=== PATIENT | male | born 1955 | race Caucasian/White ===

== ENCOUNTER 2016-09-21 06:51 | Day surgery (SDC) | payer OTHER ==
[2016-09-16 10:37] VITALS: BMI 41.1
[~2016-09-21 06:51] MED LIST: LACTATED RINGERS 1,000 ML IV SCH
[2016-09-21] MEDS ORDERED: LACTATED RINGERS 1,000 ML IV ONE (06:59)
[2016-09-21 07:04] VITALS: RESP 16; TEMP 97.8
[2016-09-21 07:10] LABS: Glucose,Whole Blood 232 mg/dL (75-99)
[2016-09-21] MEDS ORDERED: PROPOFOL 10 MG/ML 20 ML VIAL IV ONE (07:21)
--- NOTE | 2016-09-21 07:59 | P.PCN ---
Date of Procedure: 09/21/16 Procedure(s) Performed: BRIEF HISTORY: Patient is a 60-year-old pleasant white male, scheduled for an elective colonoscopy as a part of screening for colorectal neoplasia. PROCEDURE PERFORMED: Colonoscopy with snare polypectomy. PREOPERATIVE DIAGNOSIS: Screening for colon cancer. IV sedation per Anesthesia. PROCEDURE: After informed consent was obtained, the patient, was brought into the endoscopy unit. IV conscious sedation was administered by Anesthesia under continuous monitoring. Initially the Olympus CF-160 flexible video colonoscope was then inserted in the rectum, gradually advanced into the cecum without any difficulty. Careful examination was performed as the scope was gradually being withdrawn. Ileocecal valve and the appendiceal orifice were visualized and appeared normal. Prep was excellent. Mucosa of the cecum, appeared normal. In the ascending colon there was a 5 mm polyp removed by snare polypectomy. In the descending colon there were 2 polyps measuring 5 mm and 2 cm in size both of which were removed by snare polypectomy. The rest of the ascending colon, transverse colon, descending colon, sigmoid colon, and rectum appeared normal. Retroflexion was performed in the rectum and no lesions were seen. The patient tolerated the procedure well. IMPRESSION: 5 mm ascending colon polyp status post polypectomy. 5 mm and 2 cm descending colon polyp serous was snare polypectomy RECOMMENDATIONS: Findings of this examination were discussed with the patient as well as his family. He was advised to follow with the biopsy results. If the biopsy shows a tubular adenoma he can have a repeat colonoscopy in 3 years to 5 years.
[2016-09-21 08:23] VITALS: BP 130/76; PULSE 85
[2016-09-21 08:30] LABS: Glucose,Whole Blood 231 mg/dL (75-99)
== END 2016-09-21 08:48 | disposition home or self-care (01) ==
LOC: ORWHC2ENDO 06:51
PROVIDERS: ATTEND Internal Medicine Gastroenterology
DX: Z12.11 Encounter for screening for malignant neoplasm of colon (principal); D12.3 Benign neoplasm of transverse colon; D12.4 Benign neoplasm of descending colon; D12.5 Benign neoplasm of sigmoid colon; E11.9 Type 2 diabetes mellitus without complications; Z79.4 Long term (current) use of insulin; Z79.891 Long term (current) use of opiate analgesic; Z79.899 Other long term (current) drug therapy
CPT/HCPCS: 88305; 45385; J2704

== ENCOUNTER 2023-07-29 12:13 | Emergency (ER) | payer MEDICARE, OTHER ==
[2023-07-29 12:21] VITALS: RESP 18
[2023-07-29] MEDS ORDERED: FLUORESCEIN STRIPS 1 MG STRIP RIGHT EYE ONE (12:43)
[2023-07-29] MEDS ORDERED: PROPARACAINE 0.5% OPHTH DROPS 15 ML BTL RIGHT EYE STA (12:43)
[2023-07-29] MEDS ORDERED: CYCLOPENTOLATE 1% OPHTH SOLN 2 ML BTL RIGHT EYE STA (13:51)
[2023-07-29] MEDS ORDERED: POLYMYXIN B-TRIMETHOPRIM SULF (10,000-1) OPHTH DROPS 10 ML BTL RIGHT EYE STA (13:52)
--- NOTE | 2023-07-29 13:56 | ED ---
General Adult HPI - General Chief complaint: Eye Problems Stated complaint: [place] eye Time Seen by Provider: 07/29/23 12:24 Source: patient, RN notes reviewed Mode of arrival: ambulatory Limitations: no limitations - History of Present Illness Initial comments: 67-year-old male presents to the emergency department chief complaint of right eye pain. He states that this started around 4 days ago. He states the symptoms seem to be improving. He did initially have drainage from the eye which has resolved. He states that he overall has poor vision and can barely see with his glasses on at baseline. He states that he may have some slight worsening in his vision in his right eye but he is unsure. He states that the eye is mildly painful. Denies pain with eye movements. He states he is followed with [facility] [place] in the past but has not been there in over 2 years. He does not recall the doctor that he saw. He does report a history of diabetic retinopathy but no other known eye disease. - Related Data Home Medications Medication Instructions Recorded Confirmed ALPRAZolam [Xanax] 2 mg PO HS 02/24/14 09/21/16 Insulin Glargine [Lantus] 100 units SQ QAM 02/24/14 09/21/16 Hydrocodone/Acetaminophen 1 each PO Q6H PRN 04/13/15 09/21/16 [Hydrocodon-Acetaminoph 7.5-325] Insulin Aspart [Novolog] 20 unit SQ AC-TID 09/16/16 09/21/16 Allergies Allergy/AdvReac Type Severity Reaction Status Date / Time No Known Allergies Allergy Verified 09/21/16 07:04 Review of Systems ROS Statement: Those systems with pertinent positive or pertinent negative responses have been documented in the HPI. ROS Other: All systems not noted in ROS Statement are negative. 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, NEEDLE ASPIRATION LEFT EYE Q 3 MONTHS, PAIN CLINIC Past Anesthesia/Blood Transfusion Reactions: No Reported Reaction Past Psychological History: Anxiety Smoking Status: Current every day smoker Past Alcohol Use History: None Reported Past Drug Use History: None Reported - Past Family History Mother Family Medical History: Cancer Additional Family Medical History / Comment(s): BREAST Sister(s) Family Medical History: Cancer General Exam Limitations: no limitations General appearance: alert, in no apparent distress Head exam: Present: atraumatic, normocephalic, normal inspection Eye exam: Present: PERRL, EOMI, conjunctival injection, other (Visual acuity unable to be assessed due to baseline poor vision). Absent: normal appearance ENT exam: Present: normal exam, mucous membranes moist Neurological exam: Present: alert, oriented X3 Psychiatric exam: Present: normal affect, normal mood Skin exam: Present: warm, dry, intact, normal color. Absent: rash Course Vital Signs 07/29/23 07/29/23 12:14 14:22 Temperature 98.4 F 98.2 F Pulse Rate 106 H 80 Respiratory 18 18 Rate Blood Pressure 119/71 132/85 O2 Sat by Pulse 98 98 Oximetry Medical Decision Making - Medical Decision Making Was pt. sent in by a medical professional or institution (SELMA [place], [facility], urgent care, hospital, or [facility]...) When possible be specific @ -No Did you speak to anyone other than the patient for history (EMS, parent, family, police, friend...)? What history was obtained from this source @ -No Did you review nursing and triage notes (agree or disagree)? Why? @ -I reviewed and agree with nursing and triage notes Were old charts reviewed (outside hosp., previous admission, EMS record, old EKG, old radiological studies, urgent care reports/EKG's, [facility] records)? Report findings @ -No old charts were reviewed Differential Diagnosis (chest pain, altered mental status, abdominal pain women, abdominal pain men, vaginal bleeding, weakness, fever, dyspnea, syncope, headache, dizziness, GI bleed, back pain, seizure, CVA, palpatations, mental health, musculoskeletal)? @ -Conjunctivitis, iritis, uveitis, acute angle-closure glaucoma, this list is not all-inclusive EKG interpreted by me (3pts min.). @ -none X-rays interpreted by me (1pt min.). @ -None done CT interpreted by me (1pt min.). @ -None done U/S interpreted by me (1pt. min.). @ -None done What testing was considered but not performed or refused? (CT, X-rays, U/S, labs)? Why? @ -None What meds were considered but not given or refused? Why? @ -None Did you discuss the management of the patient with other professionals (professionals i.e. , PA, BAKESHOP CLEANER, lab, RT, psych nurse, social human services assistants, project/production manager imaging, teacher, command center officer, outsole caser)? Give summary @ -No Was smoking cessation discussed for >3mins.? @ -No Was critical care preformed (if so, how long)? @ -No Were there social determinants of health that impacted care today? How? (Homelessness, low income, unemployed, alcoholism, drug addiction, transportation, low edu. Level, literacy, decrease access to med. care, long-term, rehab)? @ -No Was there de-escalation of care discussed even if they declined (Discuss DNR or withdrawal of care, Hospice)? DNR status @ -No What co-morbidities impacted this encounter? (DM, HTN, Smoking, COPD, CAD, Cancer, CVA, ARF, Chemo, Hep., AIDS, mental health diagnosis, sleep apnea, morbid obesity)? @ -None Was patient admitted / discharged? Hospital course, mention meds given and route, prescriptions, significant lab abnormalities, going to OR and other pertinent info. @ -Discharged. Patient presented to the emergency department chief complaint of right eye redness 4 days. He states that the symptoms are improving. Ocular pressure in the right eye 12, pressure in left eye 17. Visual acuity unable to be assessed due to her vision at baseline. With his glasses he is unable to visualize the chart which is baseline for the patient. Fluorescein staining performed which shows no obvious corneal abrasion. Discussed with patient that he needs to follow his ophthalmology on Monday as we do not have ophthalmology coverage this weekend. Discussed that if symptoms worsen he should go to an emergency department with ophthalmology coverage. Return precautions discussed. Patient expresses understanding and is agreeable with plan. Patient started on antibiotic eyedrops. She is stable at time of discharge. Case discussed with Dr. Tobias in detail who is agreeable with plan Undiagnosed new problem with uncertain prognosis? @ -No Drug Therapy requiring intensive monitoring for toxicity (Heparin, Nitro, Insulin, Cardizem)? @ -No Were any procedures done? @ -No Diagnosis/symptom? @ -Iritis Acute, or Chronic, or Acute on Chronic? @ -Acute Uncomplicated (without systemic symptoms) or Complicated (systemic symptoms)? @ -Uncomplicated Side effects of treatment? @ -No Exacerbation, Progression, or Severe Exacerbation? @ -No Poses a threat to life or bodily function? How? (Chest pain, [place], [place], pneumonia, PE, COPD, DKA, ARF, appy, cholecystitis, CVA, Diverticulitis, Homicidal, Suicidal, threat to staff... and all critical care pts) @ -No Disposition Clinical Impression: Iritis, Bacterial conjunctivitis Disposition: HOME SELF-CARE Condition: Stable Instructions (If sedation given, give patient instructions): Iritis (ED), Conjunctivitis (ED) Additional Instructions: Instill 1 eye drop every 6 hours. Please follow up with ophthalmology on Monday. Return to an emergency department with ophthalmology for worsening symptoms. Is patient prescribed a controlled substance at d/c from ED?: No Referrals: Padma Gomez MD [Primary Care Provider] - 1-2 days
[2023-07-29 14:28] VITALS: BP 132/85; PULSE 80; TEMP 98.2
== END 2023-07-29 14:27 | disposition home or self-care (01) ==
LOC: EC 12:13
DX: H20.011 Primary iridocyclitis, right eye (principal); E11.9 Type 2 diabetes mellitus without complications; M19.90 Unspecified osteoarthritis, unspecified site; F41.9 Anxiety disorder, unspecified; F17.200 Nicotine dependence, unspecified, uncomplicated; Z79.4 Long term (current) use of insulin; Z79.899 Other long term (current) drug therapy
CPT/HCPCS: 99283

== ENCOUNTER 2023-09-01 15:31 | Emergency (ER) | payer MEDICARE, OTHER ==
--- NOTE | 2023-09-01 15:56 | ED ---
General Adult HPI - General Source: patient, RN notes reviewed Mode of arrival: ambulatory Limitations: no limitations <Gregory Webb - Last Filed: 09/01/23 15:55> - General Source: patient, RN notes reviewed, old records reviewed <Yfn Emery - Last Filed: 09/01/23 23:48> - General Stated complaint: Hyperglycemia Time Seen by Provider: 09/01/23 15:55 - History of Present Illness Initial comments: 67-year-old male presents emergency Department with chief complaint of hyperglycemia. Patient's blood sugars reading over 600 patient did receive multiple doses of insulin today. Patient has no complaints family reports that his blood sugar is not well-controlled. (Gregory Webb) Patient is a 67-year-old male who presents emergency Department for hyperglycemia. Has home nurse which found he was hyperglycemic with sugars are elevated. Apparently did have a reading over 600 today but had no other acute complaints. His history of chronically elevated sugars ranging anywhere from 100-400. Denies any nausea, vomiting, diarrhea. Denies any abdominal pain, chest pain, fevers, chills, cough. No other acute complaint at this time. Pres ents for further evaluation at this time. I evaluated the patient will need he was placed in a hallway bed. (Yfn Emery) - Related Data Home Medications Medication Instructions Recorded Confirmed ALPRAZolam [Xanax] 2 mg PO HS 02/24/14 09/21/16 Insulin Glargine [Lantus] 100 units SQ QAM 02/24/14 09/21/16 Hydrocodone/Acetaminophen 1 each PO Q6H PRN 04/13/15 09/21/16 [Hydrocodon-Acetaminoph 7.5-325] Insulin Aspart [Novolog] 20 unit SQ AC-TID 09/16/16 09/21/16 Allergies Allergy/AdvReac Type Severity Reaction Status Date / Time No Known Allergies Allergy Verified 09/01/23 16:34 Review of Systems ROS Other: All systems not noted in ROS Statement are negative. <Gregory Webb - Last Filed: 09/01/23 15:55> ROS Other: All systems not noted in ROS Statement are negative. <Yfn Emery - Last Filed: 09/01/23 23:48> ROS Statement: Those systems with pertinent positive or pertinent negative responses have been documented in the HPI. Review of Systems: CONST: Denies fever EYES: Denies blurry vision ENT: Denies nasal congestion C/V: Denies Chest pain RESP: Denies shortness of breath GI: Denies abdominal pain : Denies dysuria SKIN: Denies rash. MSK: Denies joint pain. 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, NEEDLE ASPIRATION LEFT EYE Q 3 MONTHS, PAIN CLINIC Past Anesthesia/Blood Transfusion Reactions: No Reported Reaction Past Psychological History: Anxiety Smoking Status: Current every day smoker Past Alcohol Use History: None Reported Past Drug Use History: None Reported - Past Family History Mother Family Medical History: Cancer Additional Family Medical History / Comment(s): BREAST Sister(s) Family Medical History: Cancer <Gregory Webb - Last Filed: 09/01/23 15:55> General Exam <Gregory Webb - Last Filed: 09/01/23 15:55> <Yfn Emery - Last Filed: 09/01/23 23:48> - General Exam Comments Initial Comments: Visual Physical Exam Vital signs reviewed General: Well-appearing, nontoxic, no acute distress. Head: Normocephalic, atraumatic Eyes: PERRLA, EOMI ENT: Airway patent Chest: Nonlabored breathing Skin: No visual rash, normal skin tone Neuro: Alert and oriented 3 Musculoskeletal: No gross abnormalities (Gregory Webb) General: Appears in no acute distress. HEAD: Normal with no signs of head trauma. EYES: PERRLA, EOMI, conjunctiva normal, no discharge. ENT: Hearing grossly intact, normal oropharynx. RESPIRATORY: Clear breath sounds bilaterally. No wheezes, rales, or rhonchi. C/V: Regular rate and rhythm. S1 and S2 auscultated, no edema, peripheral pulses 2+ and intact throughout ABD: Abd is soft, nontender, nondistended EXT: Normal range of motion, no obvious deformity SKIN: No rashes or lesions observed on exposed skin. NEURO: Alert and oriented x 4. (Yfn Emeyr) Course Vital Signs 09/01/23 16:31 Temperature 97.4 F L Pulse Rate 91 Respiratory 22 Rate Blood Pressure 97/60 O2 Sat by Pulse 97 Oximetry Medical Decision Making <Gregory Webb - Last Filed: 09/01/23 15:55> - Lab Data Result diagrams: 09/01/23 17:31 09/01/23 16:54 <Yfn Emery - Last Filed: 09/01/23 23:48> - Medical Decision Making I completed the quick note portion of this chart signed Gregory Webb PA-C (Gregory Webb) Was pt. sent in by a medical professional or institution (, PA, WIRE INSULATOR, urgent care, hospital, or [facility]...) When possible be specific @ -Sent by home nurse for evaluation for hyperglycemia Did you speak to anyone other than the patient for history (EMS, parent, family, police, friend...)? What history was obtained from this source @ -No Did you review nursing and triage notes (agree or disagree)? Why? @ -I reviewed and agree with nursing and triage notes Were old charts reviewed (outside hosp., previous admission, EMS record, old EKG, old radiological studies, urgent care reports/EKG's, [facility] records)? Report findings @ -Old charts reviewed Differential Diagnosis (chest pain, altered mental status, abdominal pain women, abdominal pain men, vaginal bleeding, weakness, fever, dyspnea, syncope, headache, dizziness, GI bleed, back pain, seizure, CVA, palpatations, mental health, musculoskeletal)? @ -Hyperglycemia, DKA, dehydration, electrolyte abnormality. This list is not all inclusive. EKG interpreted by me (3pts min.). @ -None done X-rays interpreted by me (1pt min.). @ -None done CT interpreted by me (1pt min.). @ -None done U/S interpreted by me (1pt. min.). @ -None done What testing was considered but not performed or refused? (CT, X-rays, U/S, labs)? Why? @ -None What meds were considered but not given or refused? Why? @ -None Did you discuss the management of the patient with other professionals (brianda hernandez i.e., Dr., SELMA, WIRE INSULATOR, lab, RT, psych nurse, case management social worker, assistance specialist, teacher, press officer, porter sample case)? Give summary @ -No Was smoking cessation discussed for >3mins.? @ -No Was critical care preformed (if so, how long)? @ -No Were there social determinants of health that impacted care today? How? (Homelessness, low income, unemployed, alcoholism, drug addiction, transportatio n, low edu. Level, literacy, decrease access to med. care, halfway, rehab)? @ -No Was there de-escalation of care discussed even if they declined (Discuss DNR or withdrawal of care, Hospice)? DNR status @ -No What co-morbidities impacted this encounter? (DM, HTN, Smoking, COPD, CAD, Cancer, CVA, ARF, Chemo, Hep., AIDS, mental health diagnosis, sleep apnea, morbid obesity)? @ -None Was patient admitted / discharged? Hospital course, mention meds given and route, prescriptions, significant lab abnormalities, going to OR and other pertinent info. @ -Based on the Patient's presentation and physical exam, we will obtain DKA evaluation on the patient. He has no acute complaints at this time. He will be given 2 L fluid bolus. He was in agreement this plan. Vital signs are within acceptable limits. His no symptoms. Laboratory studies remarkable for mild dehydration with lactic acid of 2.7. This is prior to receiving 2 L fluid bolus. There is no evidence of anion gap metabolic acidosis. Accu-Chek is 119. Acetone negative. Remainder workup unremarkable. On reevaluation, he still tolerating oral intake. Still has no complaints. Would like to go home. I believe this is reasonable. He'll be discharged home at this time. States she does have his normal insulin at home. I instructed the patient to follow up with their PCP in the next 1-3 days. I explained that the patient should return to the emergency department if they experience any worsening symptoms. Strict return precautions were discussed with the patient. The patient expressed understanding of these instructions. I answered all questions that the patient had. The patient was discharged home in good condition with their prescriptions and follow up information. Undiagnosed new problem with uncertain prognosis? @ -No Drug Therapy requiring intensive monitoring for toxicity (Heparin, Nitro, Insulin, Cardizem)? @ -No Were any procedures done? @ -No Diagnosis/symptom? @ -Hyperglycemia, dehydration Acute, or Chronic, or Acute on Chronic? @ -Acute Uncomplicated (without systemic symptoms) or Complicated (systemic symptoms)? @ -Uncomplicated Side effects of treatment? @ -No Exacerbation, Progression, or Severe Exacerbation? @ -No Poses a threat to life or bodily function? How? (Chest pain, [place], [place], pneumonia, PE, COPD, DKA, ARF, appy, cholecystitis, CVA, Diverticulitis, Homicidal, Suicidal, threat to staff... and all critical care pts) @ -No (Yfn Emery) - Lab Data Lab Results 09/01/23 09/01/23 09/01/23 Range/Units 16:51 16:54 16:54 WBC (3.8-10.6) k/uL RBC (4.30-5.90) m/uL Hgb (13.0-17.5) gm/dL Hct (39.0-53.0) % MCV (80.0-100.0) fL MCH (25.0-35.0) pg MCHC (31.0-37.0) g/dL RDW (11.5-15.5) % Plt Count (150-450) k/uL MPV Neutrophils % % Lymphocytes % % Monocytes % % Eosinophils % % Basophils % % Neutrophils # (1.3-7.7) k/uL Lymphocytes # (1.0-4.8) k/uL Monocytes # (0-1.0) k/uL Eosinophils # (0-0.7) k/uL Basophils # (0-0.2) k/uL VBG pH (7.31-7.41) VBG pCO2 (37-51) mmHg VBG HCO3 (24-28) mmol/L Sodium 138 (137-145) mmol/L Potassium 4.1 (3.5-5.1) mmol/L Chloride 105 (98-107) mmol/L Carbon Dioxide 21 L (22-30) mmol/L Anion Gap 12 mmol/L BUN 16 (9-20) mg/dL Creatinine 0.72 (0.66-1.25) mg/dL Est GFR (CKD-EPI)AfAm >90 (>60 ml/min/1.73 sqM) Est GFR (CKD-EPI)NonAf >90 (>60 ml/min/1.73 sqM) Glucose 119 H (74-99) mg/dL POC Glucose (mg/dL) 116 H (70-110) mg/dL POC Glu Orthopedic Rn ID [place] Lactic Ac Sepsis Rflx Plasma Lactic Acid Hossein 2.7 H* (0.7-2.0) mmol/L Calcium 9.4 (8.4-10.2) mg/dL Total Bilirubin 0.5 (0.2-1.3) mg/dL AST 20 (17-59) U/L ALT 18 (4-49) U/L Alkaline Phosphatase 103 (38-126) U/L Total Protein 6.3 (6.3-8.2) g/dL Albumin 3.7 (3.5-5.0) g/dL Lipase 112 (23-300) U/L Acetone, Qual Negative (Negative) 09/01/23 09/01/23 09/01/23 Range/Units 16:54 17:31 17:38 WBC 9.4 (3.8-10.6) k/uL RBC 4.93 (4.30-5.90) m/uL Hgb 15.2 (13.0-17.5) gm/dL Hct 45.4 (39.0-53.0) % MCV 92.2 (80.0-100.0) fL MCH 30.9 (25.0-35.0) pg MCHC 33.5 (31.0-37.0) g/dL RDW 13.0 (11.5-15.5) % Plt Count 245 (150-450) k/uL MPV 8.7 Neutrophils % 67 % Lymphocytes % 27 % Monocytes % 4 % Eosinophils % 1 % Basophils % 0 % Neutrophils # 6.3 (1.3-7.7) k/uL Lymphocytes # 2.5 (1.0-4.8) k/uL Monocytes # 0.4 (0-1.0) k/uL Eosinophils # 0.1 (0-0.7) k/uL Basophils # 0.0 (0-0.2) k/uL VBG pH 7.35 (7.31-7.41) VBG pCO2 51 (37-51) mmHg VBG HCO3 28 (24-28) mmol/L Sodium (137-145) mmol/L Potassium (3.5-5.1) mmol/L Chloride (98-107) mmol/L Carbon Dioxide (22-30) mmol/L Anion Gap mmol/L BUN (9-20) mg/dL Creatinine (0.66-1.25) mg/dL Est GFR (CKD-EPI)AfAm (>60 ml/min/1.73 sqM) Est GFR (CKD-EPI)NonAf (>60 ml/min/1.73 sqM) Glucose (74-99) mg/dL POC Glucose (mg/dL) (70-110) mg/dL POC Glu Orthopedic Rn ID Lactic Ac Sepsis Rflx Y Plasma Lactic Acid Hossein (0.7-2.0) mmol/L Calcium (8.4-10.2) mg/dL Total Bilirubin (0.2-1.3) mg/dL AST (17-59) U/L ALT (4-49) U/L Alkaline Phosphatase (38-126) U/L Total Protein (6.3-8.2) g/dL Albumin (3.5-5.0) g/dL Lipase (23-300) U/L Acetone, Qual (Negative) Disposition <Gregory Webb - Last Filed: 09/01/23 15:55> Is patient prescribed a controlled substance at d/c from ED?: No Time of Disposition: 19:00 <Yfn Emery - Last Filed: 09/01/23 23:48> Clinical Impression: Hyperglycemia, Dehydration Disposition: HOME SELF-CARE Condition: Good Referrals: Padma Gomez MD [Primary Care Provider] - 1-2 days
[2023-09-01 16:42] VITALS: BP 97/60; PULSE 91; RESP 22; TEMP 97.4
[2023-09-01 16:53] LABS: Glucose,Whole Blood 116 mg/dL (70-110)
[2023-09-01 17:08] LABS: VBG PH 7.35 (7.31-7.41)
[2023-09-01] MEDS ORDERED: SODIUM CHLORIDE 0.9% 1,000 ML IV STA ×2 (17:09→18:05)
[2023-09-01 17:21] LABS: ALT 18 U/L (4-49); AST 20 U/L (17-59); African American GFR (CKD) >90 (>60 ml/min/1.73 sqM); Albumin 3.7 g/dL (3.5-5.0); Alkaline Phosphatase 103 U/L (38-126); Anion Gap 12 mmol/L; Blood Urea Nitrogen 16 mg/dL (9-20); Calcium 9.4 mg/dL (8.4-10.2); Carbon Dioxide 21 mmol/L (22-30); Chloride 105 mmol/L (98-107); Glucose 119 mg/dL (74-99); Lipase 112 U/L (23-300); Non-African American GFR(CKD) >90 (>60 ml/min/1.73 sqM); Potassium 4.1 mmol/L (3.5-5.1); Sodium 138 mmol/L (137-145); Total Bilirubin 0.5 mg/dL (0.2-1.3); Total Protein 6.3 g/dL (6.3-8.2)
[2023-09-01 17:36] LABS: Basophils % (A) 0 %; Eosinophils # (A) 0.1 k/uL (0-0.7); Eosinophils % (A) 1 %; HCT 45.4 % (39.0-53.0); HGB 15.2 gm/dL (13.0-17.5); Lymphocytes # (A) 2.5 k/uL (1.0-4.8); Lymphocytes % (A) 27 %; MCH 30.9 pg (25.0-35.0); MCHC 33.5 g/dL (31.0-37.0); MCV 92.2 fL (80.0-100.0); Mean Platelet Volume 8.7; Monocytes # (A) 0.4 k/uL (0-1.0); Monocytes % (A) 4 %; Neutrophils # (A) 6.3 k/uL (1.3-7.7); Neutrophils % (A) 67 %; Platelet Count 245 k/uL (150-450); RBC 4.93 m/uL (4.30-5.90); WBC 9.4 k/uL (3.8-10.6)
== END 2023-09-01 19:56 | disposition home or self-care (01) ==
LOC: EC 15:31
DX: E11.65 Type 2 diabetes mellitus with hyperglycemia (principal); E86.0 Dehydration; M19.90 Unspecified osteoarthritis, unspecified site; F17.200 Nicotine dependence, unspecified, uncomplicated; F41.9 Anxiety disorder, unspecified; Z79.1 Long term (current) use of non-steroidal anti-inflammatories (NSAID); Z79.4 Long term (current) use of insulin; Z79.899 Other long term (current) drug therapy
CPT/HCPCS: 36415; 80053; 82009; 82803; 83605; 83690; 85025; 96360; 96361; 99285

== ENCOUNTER 2023-12-30 19:17 | Observation (INO) | payer MEDICARE, OTHER ==
--- NOTE | 2023-12-30 20:00 | ED ---
General Adult HPI - General Chief complaint: Weakness Stated complaint: Lethargic Time Seen by Provider: 12/30/23 19:20 Source: family, EMS, RN notes reviewed Mode of arrival: EMS - History of Present Illness Initial comments: 68-year-old male presents to the emergency department for evaluation of generalized weakness and lightheadedness. Symptoms started earlier this morning. He notes that when he attempted to get up earlier today he felt very lightheaded. He reports that he got up earlier today and his son found him on the ground. He states that this was around noon today. Patient reports that he was down for around 1-2 hours prior to this. He took another fall later in the day. He is unsure how he fell or if he lost consciousness. He is not on blood thinners. Patient denies recent fever, chills, headache, chest pain, shortness of breath, abdominal pain, urinary or bowel symptoms. Past medical history includes diabetes. - Related Data Home Medications Medication Instructions Recorded Confirmed ALPRAZolam [Xanax] 2 mg PO HS 02/24/14 12/31/23 Hydrocodone/Acetaminophen 1 tab PO BID 04/13/15 12/31/23 [Hydrocodon-Acetaminoph 7.5-325] HYDROcodone/APAP 7.5-325MG [[place] 1 tab PO DAILY PRN 12/31/23 12/31/23 7.5-325] Insulin Aspart [NovoLOG Flexpen] 30 units SQ AC-TID 12/31/23 12/31/23 Insulin Glargine,Hum.rec.anlog 40 units SQ DAILY 12/31/23 12/31/23 [Lantus Solostar Pen] lisinopriL [Zestril] 5 mg PO DAILY 12/31/23 12/31/23 Allergies Allergy/AdvReac Type Severity Reaction Status Date / Time No Known Allergies Allergy Verified 12/31/23 10:50 Review of Systems ROS Statement: Those systems with pertinent positive or pertinent negative responses have been documented in the HPI. ROS Other: All systems not noted in ROS Statement are negative. 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, NEEDLE ASPIRATION LEFT EYE Q 3 MONTHS, PAIN CL[facility] Past Anesthesia/Blood Transfusion Reactions: No Reported Reaction Past Psychological History: Anxiety Smoking Status: Current every day smoker Past Alcohol Use History: None Reported Past Drug Use History: None Reported - Past Family History Mother Family Medical History: Cancer Additional Family Medical History / Comment(s): BREAST Sister(s) Family Medical History: Cancer General Exam Limitations: no limitations General appearance: alert, in no apparent distress Head exam: Present: atraumatic, normocephalic, normal inspection Eye exam: Present: normal appearance, PERRL, EOMI. Absent: scleral icterus, conjunctival injection, periorbital swelling ENT exam: Present: normal exam, normal oropharynx, mucous membranes moist, TM's normal bilaterally, normal external ear exam Neck exam: Present: normal inspection, full ROM. Absent: tenderness, meningismus, lymphadenopathy Respiratory exam: Present: normal lung sounds bilaterally. Absent: respiratory distress, wheezes, rales, rhonchi, stridor Cardiovascular Exam: Present: regular rate, normal rhythm, normal heart sounds. Absent: systolic murmur, diastolic murmur, rubs, gallop, clicks GI/Abdominal exam: Present: soft. Absent: distended, tenderness, guarding, rebound, rigid Extremities exam: Present: normal inspection, full ROM, normal capillary refill, pedal edema. Absent: tenderness, joint swelling, calf tenderness Back exam: Present: normal inspection Neurological exam: Present: alert, CN II-XII intact Expanded Patient oriented to: Present: person, place. Absent: time Speech: Present: fluid speech Cranial nerves: EOM's Intact: Normal, Tongue Deviation: Normal (none), Nystagmus: Normal (none) Ataxia: Present: yes Upper motor neuron: Pronator Drift: Normal (none) Motor strength exam: RUE: 5, LUE: 5, RLE: 4, LLE: 5 Eye Response: (4) open spontaneously Motor Response: (6) obeys commands Verbal Response: (5) oriented Siddhartha Total: 15 Psychiatric exam: Present: normal affect, normal mood Skin exam: Present: warm, dry, intact, normal color. Absent: rash Course Vital Signs 12/30/23 12/30/23 12/31/23 19:25 21:34 00:18 Temperature 98.7 F 98.5 F Pulse Rate 99 96 93 Respiratory 18 20 18 Rate Blood Pressure 128/76 128/76 158/92 O2 Sat by Pulse 98 96 Oximetry 12/31/23 12/31/23 03:19 05:40 Temperature Pulse Rate 91 86 Respiratory 22 22 Rate Blood Pressure 138/67 150/83 O2 Sat by Pulse 95 99 Oximetry Medical Decision Making - Medical Decision Making Was pt. sent in by a medical professional or institution (, PA, DESK MONITOR, urgent care, hospital, or [facility]...) When possible be specific @ -No Did you speak to anyone other than the patient for history (EMS, parent, family, police, friend...)? What history was obtained from this source @ -Patients family in the room provided some history for this patient Did you review nursing and triage notes (agree or disagree)? Why? @ -I reviewed and agree with nursing and triage notes Were old charts reviewed (outside hosp., previous admission, EMS record, old EKG, old radiological studies, urgent care reports/EKG's, [facility] records)? Report findings @ -No old charts were reviewed Differential Diagnosis (chest pain, altered mental status, abdominal pain women, abdominal pain men, vaginal bleeding, weakness, fever, dyspnea, syncope, headache, dizziness, GI bleed, back pain, seizure, CVA, palpatations, mental health, musculoskeletal)? @ -Differential Weakness: Hypoglycemia, shock, sepsis, hyponatremia, anemia, infection, [place], ETOH, adverse medicine reaction, overdose, stroke, this is not meant to be an all-inclusive list. EKG interpreted by me (3pts min.). @ -EKG at 4 shows sinus rhythm right bundle branch block rate 98, AL 178, QRS 158, QTQTc [id number] X-rays interpreted by me (1pt min.). @ -Chest x-ray shows mild pulmonary venous congestion CT interpreted by me (1pt min.). @ -CT brain shows no acute intracranial process U/S interpreted by me (1pt. min.). @ -None done What testing was considered but not performed or refused? (CT, X-rays, U/S, labs)? Why? @ -None What meds were considered but not given or refused? Why? @ -None Did you discuss the management of the patient with other professionals (professionals i.e. , PA, DESK MONITOR, lab, RT, psych nurse, social work associate, senior buyer, teacher, grant officer, high risk case manager)? Give summary @ -Case discussed with Suzanne with [facility] who is accepting of the admission Was smoking cessation discussed for >3mins.? @ -No Was critical care preformed (if so, how long)? @ -No Were there social determinants of health that impacted care today? How? (Homelessness, low income, unemployed, alcoholism, drug addiction, transportation, low edu. Level, literacy, decrease access to med. care, detention, rehab)? @ -No Was there de-escalation of care discussed even if they declined (Discuss DNR or withdrawal of care, Hospice)? DNR status @ -No What co-morbidities impacted this encounter? (DM, HTN, Smoking, COPD, CAD, Cancer, CVA, ARF, Chemo, Hep., AIDS, mental health diagnosis, sleep apnea, morbid obesity)? @ -None Was patient admitted / discharged? Hospital course, mention meds given and route, prescriptions, significant lab abnormalities, going to OR and other pertinent info. @ -68-year-old male presents to the emergency department for evaluation of weakness, increased falls today. Here because of the fall or if he lost consciousness. He notes that he has been lightheaded. Laboratory studies were obtained. Patient does have right lower extremity weakness which he attributes to pain. CBC essentially unremarkable; normal coagulation studies; BNP 506, troponin 0.022; UA shows no evidence of infectious process, 2+ protein, 1+ glucose, trace blood. Patient underwent CT brain which shows no evidence of acute intracranial process. Chest x-ray shows mild pulmonary vascular congestion. Patient given 500 cc normal saline. Patient reevaluated and CT head and neck ordered. 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 Patient will be admitted for generalized weakness, presyncope. Cardiology consult. Case was discussed with Suzanne with [facility] who is accepting of the admission. Undiagnosed new problem with uncertain prognosis? @ -No Drug Therapy requiring intensive monitoring for toxicity (Heparin, Nitro, Insulin, Cardizem)? @ -No Were any procedures done? @ -No Diagnosis/symptom? @ -Syncope, weakness Acute, or Chronic, or Acute on Chronic? @ -acute Uncomplicated (without systemic symptoms) or Complicated (systemic symptoms)? @ -uncomplicated Side effects of treatment? @ -No Exacerbation, Progression, or Severe Exacerbation? @ -No Poses a threat to life or bodily function? How? (Chest pain, [place], [place], pneumonia, PE, COPD, DKA, ARF, appy, cholecystitis, CVA, Diverticulitis, Homicidal, Suicidal, threat to staff... and all critical care pts) @ -No - Lab Data Result diagrams: 01/01/24 04:33 01/01/24 04:33 Lab Results 12/30/23 12/30/23 12/30/23 Range/Units 19:58 19:58 19:58 WBC 10.3 (3.8-10.6) k/uL RBC 5.22 (4.30-5.90) m/uL Hgb 15.7 (13.0-17.5) gm/dL Hct 48.1 (39.0-53.0) % MCV 92.1 (80.0-100.0) fL MCH 30.1 (25.0-35.0) pg MCHC 32.7 (31.0-37.0) g/dL RDW 13.2 (11.5-15.5) % Plt Count 205 (150-450) k/uL MPV 8.6 Neutrophils % 78 % Lymphocytes % 14 % Monocytes % 5 % Eosinophils % 2 % Basophils % 0 % Neutrophils # 8.0 H (1.3-7.7) k/uL Lymphocytes # 1.4 (1.0-4.8) k/uL Monocytes # 0.6 (0-1.0) k/uL Eosinophils # 0.2 (0-0.7) k/uL Basophils # 0.0 (0-0.2) k/uL PT 10.8 (10.0-12.5) sec INR 1.0 (<1.2) APTT 25.7 (22.0-30.0) sec Sodium 137 (137-145) mmol/L Potassium 4.0 (3.5-5.1) mmol/L Chloride 109 H (98-107) mmol/L Carbon Dioxide 21 L (22-30) mmol/L Anion Gap 7 mmol/L BUN 24 H (9-20) mg/dL Creatinine 0.68 (0.66-1.25) mg/dL Est GFR (CKD-EPI)AfAm >90 (>60 ml/min/1.73 sqM) Est GFR (CKD-EPI)NonAf >90 (>60 ml/min/1.73 sqM) Glucose 190 H (74-99) mg/dL POC Glucose (mg/dL) (70-110) mg/dL POC Glu Python Django Developer ID Plasma Lactic Acid Hossein (0.7-2.0) mmol/L Calcium 8.5 (8.4-10.2) mg/dL Magnesium 1.8 (1.6-2.3) mg/dL Total Bilirubin 0.4 (0.2-1.3) mg/dL AST 24 (17-59) U/L ALT 17 (4-49) U/L Alkaline Phosphatase 90 (38-126) U/L Troponin I (0.000-0.034) ng/mL NT-Pro-B Natriuret Pep 506 pg/mL Total Protein 5.4 L (6.3-8.2) g/dL Albumin 3.0 L (3.5-5.0) g/dL Urine Color Urine Appearance (Clear) Urine pH (5.0-8.0) Ur Specific Lydia (1.001-1.035) Urine Protein (Negative) Urine Glucose (UA) (Negative) Urine Ketones (Negative) Urine Blood (Negative) Urine Nitrite (Negative) Urine Bilirubin (Negative) Urine Urobilinogen (<2.0) mg/dL Ur Leukocyte Esterase (Negative) Urine RBC (0-5) /hpf Urine WBC (0-5) /hpf Ur Squamous Epith Cells (0-4) /hpf Hyaline Casts (0-2) /lpf Urine Mucus (None) /hpf 12/30/23 12/30/23 12/30/23 Range/Units 19:58 19:58 21:29 WBC (3.8-10.6) k/uL RBC (4.30-5.90) m/uL Hgb (13.0-17.5) gm/dL Hct (39.0-53.0) % MCV (80.0-100.0) fL MCH (25.0-35.0) pg MCHC (31.0-37.0) g/dL RDW (11.5-15.5) % Plt Count (150-450) k/uL MPV Neutrophils % % Lymphocytes % % Monocytes % % Eosinophils % % Basophils % % Neutrophils # (1.3-7.7) k/uL Lymphocytes # (1.0-4.8) k/uL Monocytes # (0-1.0) k/uL Eosinophils # (0-0.7) k/uL Basophils # (0-0.2) k/uL PT (10.0-12.5) sec INR (<1.2) APTT (22.0-30.0) sec Sodium (137-145) mmol/L Potassium (3.5-5.1) mmol/L Chloride (98-107) mmol/L Carbon Dioxide (22-30) mmol/L Anion Gap mmol/L BUN (9-20) mg/dL Creatinine (0.66-1.25) mg/dL Est GFR (CKD-EPI)AfAm (>60 ml/min/1.73 sqM) Est GFR (CKD-EPI)NonAf (>60 ml/min/1.73 sqM) Glucose (74-99) mg/dL POC Glucose (mg/dL) 180 H (70-110) mg/dL POC Glu Python Django Developer ID Kathie Corley Plasma Lactic Acid Hossein 1.5 (0.7-2.0) mmol/L Calcium (8.4-10.2) mg/dL Magnesium (1.6-2.3) mg/dL Total Bilirubin (0.2-1.3) mg/dL AST (17-59) U/L ALT (4-49) U/L Alkaline Phosphatase (38-126) U/L Troponin I 0.022 (0.000-0.034) ng/mL NT-Pro-B Natriuret Pep pg/mL Total Protein (6.3-8.2) g/dL Albumin (3.5-5.0) g/dL Urine Color Urine Appearance (Clear) Urine pH (5.0-8.0) Ur Specific Lydia (1.001-1.035) Urine Protein (Negative) Urine Glucose (UA) (Negative) Urine Ketones (Negative) Urine Blood (Negative) Urine Nitrite (Negative) Urine Bilirubin (Negative) Urine Urobilinogen (<2.0) mg/dL Ur Leukocyte Esterase (Negative) Urine RBC (0-5) /hpf Urine WBC (0-5) /hpf Ur Squamous Epith Cells (0-4) /hpf Hyaline Casts (0-2) /lpf Urine Mucus (None) /hpf 12/30/23 Range/Units 22:29 WBC (3.8-10.6) k/uL RBC (4.30-5.90) m/uL Hgb (13.0-17.5) gm/dL Hct (39.0-53.0) % MCV (80.0-100.0) fL MCH (25.0-35.0) pg MCHC (31.0-37.0) g/dL RDW (11.5-15.5) % Plt Count (150-450) k/uL MPV Neutrophils % % Lymphocytes % % Monocytes % % Eosinophils % % Basophils % % Neutrophils # (1.3-7.7) k/uL Lymphocytes # (1.0-4.8) k/uL Monocytes # (0-1.0) k/uL Eosinophils # (0-0.7) k/uL Basophils # (0-0.2) k/uL PT (10.0-12.5) sec INR (<1.2) APTT (22.0-30.0) sec Sodium (137-145) mmol/L Potassium (3.5-5.1) mmol/L Chloride (98-107) mmol/L Carbon Dioxide (22-30) mmol/L Anion Gap mmol/L BUN (9-20) mg/dL Creatinine (0.66-1.25) mg/dL Est GFR (CKD-EPI)AfAm (>60 ml/min/1.73 sqM) Est GFR (CKD-EPI)NonAf (>60 ml/min/1.73 sqM) Glucose (74-99) mg/dL POC Glucose (mg/dL) (70-110) mg/dL POC Glu Python Django Developer ID Plasma Lactic Acid Hossein (0.7-2.0) mmol/L Calcium (8.4-10.2) mg/dL Magnesium (1.6-2.3) mg/dL Total Bilirubin (0.2-1.3) mg/dL AST (17-59) U/L ALT (4-49) U/L Alkaline Phosphatase (38-126) U/L Troponin I (0.000-0.034) ng/mL NT-Pro-B Natriuret Pep pg/mL Total Protein (6.3-8.2) g/dL Albumin (3.5-5.0) g/dL Urine Color Colorless Urine Appearance Clear (Clear) Urine pH 6.0 (5.0-8.0) Ur Specific Lydia 1.016 (1.001-1.035) Urine Protein 2+ H (Negative) Urine Glucose (UA) 1+ H (Negative) Urine Ketones Negative (Negative) Urine Blood Trace H (Negative) Urine Nitrite Negative (Negative) Urine Bilirubin Negative (Negative) Urine Urobilinogen <2.0 (<2.0) mg/dL Ur Leukocyte Esterase Negative (Negative) Urine RBC 4 (0-5) /hpf Urine WBC 1 (0-5) /hpf Ur Squamous Epith Cells <1 (0-4) /hpf Hyaline Casts 17 H (0-2) /lpf Urine Mucus Rare H (None) /hpf Disposition Clinical Impression: Syncope, Confusion Disposition: ADMITTED IP TO THIS HOSP Condition: Stable Is patient prescribed a controlled substance at d/c from ED?: No
[2023-12-30 20:07] LABS: Basophils % (A) 0 %; Eosinophils # (A) 0.2 k/uL (0-0.7); Eosinophils % (A) 2 %; HCT 48.1 % (39.0-53.0); HGB 15.7 gm/dL (13.0-17.5); Lymphocytes # (A) 1.4 k/uL (1.0-4.8); Lymphocytes % (A) 14 %; MCH 30.1 pg (25.0-35.0); MCHC 32.7 g/dL (31.0-37.0); MCV 92.1 fL (80.0-100.0); Mean Platelet Volume 8.6; Monocytes # (A) 0.6 k/uL (0-1.0); Monocytes % (A) 5 %; Neutrophils % (A) 78 %; Platelet Count 205 k/uL (150-450); RBC 5.22 m/uL (4.30-5.90); RDW 13.2 % (11.5-15.5); WBC 10.3 k/uL (3.8-10.6)
--- NOTE | 2023-12-30 20:28 | XR ---
EXAMINATION TYPE: XR chest 2V DATE OF EXAM: 12/30/2023 8:14 PM CLINICAL INDICATION:Male, 68 years old with history of Weakness; [facility] COMPARISON: None TECHNIQUE: XR chest 2V. Frontal and lateral views of the chest.. FINDINGS: Lines/Tubes/Devices: EKG leads overlie the chest. No indwelling lines are seen. Heart/mediastinum: Heart appears mildly to moderately enlarged, likely also exaggerated by the low alo ng volumes. Mediastinum appears normal. Pulmonary vascularity: Possible mild central vascular congestion. Lungs/Pleura: Lung volumes are diminished, with crowding of lung markings and minor bibasilar opaciti es likely on the basis of atelectasis. Otherwise no definite confluent consolidative process, sizable effusion, or pneumothorax demonstrated. Musculoskeletal: No acute osseous abnormality demonstrated in the limits of the exam. Degenerative c hanges of the shoulders and spine. Presumed extrinsic structures over the right shoulder region. Other findings: None. IMPRESSION: Cardiomegaly with low lung volumes, and possible mild central congestion. Otherwise no acute cardiopulmonary abnormality.
[2023-12-30 20:30] LABS: ALT 17 U/L (4-49); AST 24 U/L (17-59); African American GFR (CKD) >90 (>60 ml/min/1.73 sqM); Alkaline Phosphatase 90 U/L (38-126); Anion Gap 7 mmol/L; Blood Urea Nitrogen 24 mg/dL (9-20); Calcium 8.5 mg/dL (8.4-10.2); Carbon Dioxide 21 mmol/L (22-30); Chloride 109 mmol/L (98-107); Glucose 190 mg/dL (74-99); Magnesium 1.8 mg/dL (1.6-2.3); Non-African American GFR(CKD) >90 (>60 ml/min/1.73 sqM); Sodium 137 mmol/L (137-145); Total Bilirubin 0.4 mg/dL (0.2-1.3); Total Protein 5.4 g/dL (6.3-8.2)
[2023-12-30 20:31] LABS: Partial Thromboplastin Time 25.7 sec (22.0-30.0); Prothrombin Time 10.8 sec (10.0-12.5)
--- NOTE | 2023-12-30 20:36 | CT ---
EXAMINATION TYPE: CT brain wo con CT DLP: 1168.4 mGycm, Automated exposure control for dose reduction was used. DATE OF EXAM: 12/30/2023 8:24 PM COMPARISON: None.. CLINICAL INDICATION:Male, 68 years old with history of weakness, WEAKNESS TECHNIQUE: Brain: Axial CT images of the brain were obtained with coronal and sagittal reformats created and rev iewed. Contrast used: None. Oral contrast used: None. FINDINGS: Extra-axial spaces: No abnormal extra-axial fluid collections. Basilar cisterns are patent. Ventricular system: Ventricles appear dilated in proportion to the degree of cerebral atrophy. Cerebral parenchyma: No increased attenuation to suggest acute intraparenchymal hemorrhage. The gra y-white matter interface appears maintained. Moderate to severe generalized brain atrophy. White ma tter unremarkable by CT. Cerebellum: No acute abnormality. Mass effect: No evidence of mass effect or midline shift. Intracranial vasculature: Atherosclerotic calcifications of the larger arteries near the skull base. Soft tissues: No acute or concerning abnormality. Visualized orbits: Orbital contents appear grossly intact. Calvarium/osseous structures: No evidence of calvarial fracture. Paranasal sinuses and mastoid air cells: Mild paranasal sinus mucosal thickening, mostly involving th e right ethmoid air cells. No significant sinus fluid is seen. There is no evidence of mastoid effusi on. MRI is more sensitive for detecting acute processes such as infarct, and may be considered if clinica lly warranted. IMPRESSION: No acute intracranial CT abnormality.
[2023-12-30 20:38] LABS: NT-Pro-B-Type Natriuretic Pept 506 pg/mL
[2023-12-30 21:30] LABS: Glucose,Whole Blood 180 mg/dL (70-110)
[2023-12-30 22:44] LABS: Appearance,Urine Clear (Clear); Bilirubin,Urine Negative (Negative); Blood,Urine Trace (Negative); Color,Urine Colorless; Glucose,Urine (UA) 1+ (Negative); Hyaline Casts,Urine 17 /lpf (0-2); Ketones,Urine Negative (Negative); Leukocyte Esterase,Urine Negative (Negative); Mucus,Urine Rare /hpf; Nitrite,Urine Negative (Negative); Protein,Urine 2+ (Negative); RBC,Urine 4 /hpf (0-5); Specific Gravity,Urine 1.016 (1.001-1.035); Squamous Epithelial Cell,Urine <1 /hpf (0-4); Urobilinogen,Urine <2.0 mg/dL (<2.0); WBC,Urine 1 /hpf (0-5)
[2023-12-30] MEDS: SODIUM CHLORIDE 0.9% 500 ML 500 ML IV ONE (22:48)
[2023-12-31 00:19] LABS: Glucose,Whole Blood 193 mg/dL (70-110)
--- NOTE | 2023-12-31 00:37 | CT ---
EXAM: CT Angiography Head With Intravenous Contrast CLINICAL HISTORY: ITS.REASON CT Reason: confusion, dizziness TECHNIQUE: Axial computed tomographic angiography images of the head with intravenous contrast. CTDI is 19.8 mGy and DLP is 311.85 mGy-cm. This CT exam was performed using one or more of the following dose reduction techniques: automated exposure control, adjustment of the mA and/or kV according to patient size, and/or use of iterative reconstruction technique. MIP reconstructed images were created and reviewed. COMPARISON: No relevant prior studies available. FINDINGS: Right internal carotid artery: No acute findings. Intracranial segment is patent with no significant stenosis. No aneurysm. Right anterior cerebral artery: Unremarkable. No occlusion or significant stenosis. No aneurysm. Right middle cerebral artery: Unremarkable. No occlusion or significant stenosis. No aneurysm. Right posterior cerebral artery: Unremarkable. No occlusion or significant stenosis. No aneurysm. Right vertebral artery: Unremarkable as visualized. Left internal carotid artery: Occlusion of the intracranial portions of the left ICA. No aneurysm. Left anterior cerebral artery: Unremarkable. No occlusion or significant stenosis. No aneurysm. Left middle cerebral artery: Unremarkable. No occlusion or significant stenosis. No aneurysm. Left posterior cerebral artery: Unremarkable. No occlusion or significant stenosis. No aneurysm. Left vertebral artery: Unremarkable as visualized. Basilar artery: Unremarkable. No occlusion or significant stenosis. No aneurysm. 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 NASCET criteria using the distal ICAs for comparison were used for evaluation of stenoses. CTDI is 19.8 mGy and DLP is 311.85 mGy-cm. This CT exam was performed using one or more of the following dose reduction techniques: automated exposure control, adjustment of the mA and/or kV according to patient size, and/or use of iterative reconstruction technique. 1. COMPARISON: None. FINDINGS: VASCULATURE: Right common carotid artery: Unremarkable. No occlusion or significant stenosis. No dissection. Right internal carotid artery: Unremarkable. Extracranial segment is patent with no occlusion or significant stenosis. No dissection. Right external carotid artery: Unremarkable. No occlusion. Right vertebral artery: Unremarkable. No occlusion or significant stenosis. No dissection. Left common carotid artery: Unremarkable. No occlusion or significant stenosis. No dissection. Left internal carotid artery: Chronic total occlusion of the left internal carotid artery with extension into the intracranial circulation. The petrous portion of the left ICA demonstrates chronic total occlusion with only a short segment of reconstitution just proximal to the carotid siphon where it reoccludes. Left external carotid artery: Unremarkable. No occlusion. Left vertebral artery: Multifocal occlusion of the left vertebral artery which is primarily occluded along the majority of its course and only reconstitutes a very short segments. NECK: Bones/joints: Unremarkable. No acute fracture. Soft tissues: Unremarkable. Lung apices: Clear. CAROTID STENOSIS REFERENCE USING NASCET CRITERIA: % ICA stenosis = (1 - narrowest ICA diameter/diameter of distal cervical ICA) x 100. Mild - <50% stenosis. Moderate - 50-69% stenosis. Severe - 70-94% stenosis. Near occlusion - 95-99% stenosis. Occluded - 100% stenosis. 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
[2023-12-31] MEDS ORDERED: MORPHINE SULFATE 4 MG/ML SYRINGE IV PRN (00:48)
[2023-12-31] MEDS ORDERED: NALOXONE 0.4 MG/ML 1 ML VIAL IV PRN (00:48)
[2023-12-31] MEDS ORDERED: KETOROLAC 15 MG/ML 1 ML VIAL IVP PRN (00:48)
[2023-12-31] MEDS ORDERED: ACETAMINOPHEN TAB 325 MG TAB PO PRN (00:48)
[2023-12-31] MEDS ORDERED: DEXTROSE 50% SYRINGE 50 ML IVP PRN ×2 (01:51)
[2023-12-31] MEDS: ALPRAZolam 1 MG TAB PO STA (06:48)
[2023-12-31 07:44] LABS: Glucose,Whole Blood 217 mg/dL (70-110)
[2023-12-31] MEDS: INSULIN ASPART (NovoLOG) 100 UNIT/ML VIAL SQ SCH (07:51)
[2023-12-31] MEDS: NICOTINE 21MG/24HR PATCH TRANSDERM SCH (11:43)
[2023-12-31 11:47] LABS: Glucose,Whole Blood 272 mg/dL (70-110)
--- NOTE | 2023-12-31 12:36 | P.CRDCN ---
History of Present Illness Consult date: 12/31/23 Requesting physician: Raymond Franks Reason for Consult (text): presyncope Chief complaint: leg pain and weakness History of present illness: This is a pleasant 68-year-old gentleman with a history of diabetes and chronic back pain as well as nicotine dependence smoking 2 packs/day. 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 He presented to the emergency department after having a fall at home. He has been complaining of bilateral thigh pain for the last several days. Prior to admission he felt acutely weak in his legs and fell to the floor. He denies losing consciousness. Family feels there may have been some slight confusion but the patient denies this. He denies feeling dizzy or lightheaded and denies any syncope or near syncope. EKG on admission shows sinus rhythm with a right bundle branch block and left axis deviation. NT proBNP was normal at 506. BUN 24, creatinine 0.68. Has been no evidence of hypotension or bradycardia. Continues to complain of bilateral thigh pain and low back pain. 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, NEEDLE ASPIRATION LEFT EYE Q 3 MONTHS, PAIN CLINIC Past Anesthesia/Blood Transfusion Reactions: No Reported Reaction Past Psychological History: Anxiety Smoking Status: Current every day smoker Past Alcohol Use History: None Reported Past Drug Use History: None Reported - Past Family History Mother Family Medical History: Cancer Additional Family Medical History / Comment(s): BREAST Sister(s) Family Medical History: Cancer Medications and Allergies Home Medications Medication Instructions Recorded Confirmed Type ALPRAZolam [Xanax] 2 mg PO HS 02/24/14 12/31/23 History Hydrocodone/Acetaminophen 1 tab PO BID 04/13/15 12/31/23 History [Hydrocodon-Acetaminoph 7.5-325] HYDROcodone/APAP 7.5-325MG [[place] 1 tab PO DAILY PRN 12/31/23 12/31/23 History 7.5-325] Insulin Aspart [NovoLOG Flexpen] 30 units SQ AC-TID 12/31/23 12/31/23 History Insulin Glargine,Hum.rec.anlog 40 units SQ DAILY 12/31/23 12/31/23 History [Lantus Solostar Pen] lisinopriL [Zestril] 5 mg PO DAILY 12/31/23 12/31/23 History Allergies Allergy/AdvReac Type Severity Reaction Status Date / Time No Known Allergies Allergy Verified 12/31/23 10:50 Physical Exam Vitals: Vital Signs Temp Pulse Pulse Resp BP BP Pulse Ox 12/31/23 07:36 98.0 F 93 17 176/83 96 12/31/23 05:40 86 22 150/83 99 12/31/23 03:19 91 22 138/67 95 12/31/23 00:18 98.5 F 93 18 158/92 12/30/23 21:34 96 20 128/76 96 12/30/23 19:25 98.7 F 99 18 128/76 98 Intake and Output 12/30/23 12/31/23 12/31/23 22:59 06:59 14:59 Other: # Bowel Movements 1 Weight 108.862 kg PHYSICAL EXAMINATION: This is a 68-year-old gentleman in no apparent distress at the time of my examination. VITAL SIGNS: Reviewed. HEENT: Head is atraumatic, normocephalic. Pupils are equal, round. Sclerae anicteric. Conjunctivae are clear. Mucous membranes of the mouth are moist. Neck is supple. [There is no elevated jugular venous pressure]. No carotid bruit is heard. CHEST EXAMINATION:[Lungs reveal diminished air entry bilaterally. No wheezes rales or rhonchi. Respirations even and nonlabored.] HEART EXAMINATION: [ Heart regular, positive S1 and S2. No S3. No S4. No clicks, rubs or murmurs. ] ABDOMEN: Soft, nontender. Bowel sounds are heard. No organomegaly noted. EXTREMITIES:[ 2+ peripheral pulses with evidence of mild peripheral edema and no calf tenderness noted]. NEUROLOGIC EXAMINATION: Patient is awake, alert and oriented x3. Results 12/30/23 19:58 12/30/23 19:58 Cardiac Enzymes 12/30/23 12/30/23 12/31/23 Range/Units 19:58 19:58 03:26 AST 24 (17-59) U/L Troponin I 0.022 0.027 (0.000-0.034) ng/mL 12/31/23 Range/Units 08:02 AST (17-59) U/L Troponin I 0.027 (0.000-0.034) ng/mL Coagulation 12/30/23 Range/Units 19:58 PT 10.8 (10.0-12.5) sec APTT 25.7 (22.0-30.0) sec CBC 12/30/23 Range/Units 19:58 WBC 10.3 (3.8-10.6) k/uL RBC 5.22 (4.30-5.90) m/uL Hgb 15.7 (13.0-17.5) gm/dL Hct 48.1 (39.0-53.0) % Plt Count 205 (150-450) k/uL Comprehensive Metabolic Panel 12/30/23 Range/Units 19:58 Sodium 137 (137-145) mmol/L Potassium 4.0 (3.5-5.1) mmol/L Chloride 109 H (98-107) mmol/L Carbon Dioxide 21 L (22-30) mmol/L BUN 24 H (9-20) mg/dL Creatinine 0.68 (0.66-1.25) mg/dL Glucose 190 H (74-99) mg/dL Calcium 8.5 (8.4-10.2) mg/dL AST 24 (17-59) U/L ALT 17 (4-49) U/L Alkaline Phosphatase 90 (38-126) U/L Total Protein 5.4 L (6.3-8.2) g/dL Albumin 3.0 L (3.5-5.0) g/dL Current Medications Generic Name Dose Route Start Last Admin Trade Name Freq PRN Reason Stop Dose Admin Acetaminophen 650 mg 12/31/23 00:48 Acetaminophen Tab 325 Mg Tab PO Q6HR PRN Mild Pain or Fever > 100.5 Dextrose/Water 25 ml 12/31/23 01:51 Dextrose 50% Syringe 50 Ml IVP PER PROTOCOL PRN Hypoglycemia Protocol Dextrose/Water 50 ml 12/31/23 01:51 Dextrose 50% Syringe 50 Ml IVP PER PROTOCOL PRN Hypoglycemia Protocol Insulin Aspart 0 unit 12/31/23 07:30 12/31/23 07:51 Insulin Aspart (Novolog) 100 Unit/Ml Vial SQ 6 unit ACHS [place] Administration Protocol Ketorolac Tromethamine 15 mg 12/31/23 00:48 Ketorolac 15 Mg/Ml 1 Ml Vial IVP 01/03/24 00:49 Q6HR PRN Moderate Pain (Scale 4 to 6) Morphine Sulfate 4 mg 12/31/23 00:48 Morphine Sulfate 4 Mg/Ml Syringe IV Q4HR PRN Severe Pain (Scale 7 to 10) Naloxone HCl 0.2 mg 12/31/23 00:48 Naloxone 0.4 Mg/Ml 1 Ml Vial IV Q2M PRN Opioid Reversal Nicotine 1 patch 12/31/23 11:00 12/31/23 11:43 Nicotine 21mg/24hr Patch TRANSDERM 1 patch DAILY [place] Administration Intake and Output 12/30/23 12/31/23 12/31/23 22:59 06:59 14:59 Other: # Bowel Movements 1 Weight 108.862 kg 12/30/23 19:58 12/30/23 19:58 Assessment and Plan Assessment: #1 acute onset weakness, fall with no clear loss of consciousness #2 diabetes #3 hypertension #4 nicotine dependence Plan: From cardiology's perspective continue to monitor blood pressure and continue telemetry monitoring. Will resume home dose of lisinopril. Will obtain a 2D echo with Doppler study to assess cardiac structure and function. We will continue to follow the patient and provide further recommendations accordingly. 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 Patient was seen and examined.
--- NOTE | 2023-12-31 12:52 | P.HPIM ---
History of Present Illness H&P Date: 12/31/23 History of present illness; patient is 68-year-old gentleman with past medical history significant for diabetes mellitus presented to ER for complaint of generalized weakness. Patient stated that he was all right till yesterday when after getting up in the morning he started noticing that he was very lightheaded and dizzy. Denies any significant weakness of any extremity. Denies any slurred speech or facial droop. Later while ambulating patient lost his balance and fell on the ground. Patient was so weak that he was unable to get up from the ground, patient was helped later by his son get up from the ground. Patient had another fall later in the day again there was no complaint of loss of consciousness or any prodromal symptoms prior to falling. Patient denies chest pain no complaint of shortness of breath. There is no complaint fever or chills. Initial lab work done in the ER showed WBC 10.3, hemoglobin 10.7, platelet count 205, sodium 137, potassium 4, BUN 24, creatinine 0.68, glucose 190, lactate 1.5. UA negative for any infection EKG done in the ER showed heart rate of 98, no ST segment elevation or depression seen, no T-wave inversions seen. 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 Denied any sore throat. CARDIOVASCULAR: No chest pain, orthopnea, PND, no palpitations, no syncope. PULMONARY: No shortness of breath, no cough, no hemoptysis. GASTROINTESTINAL: No diarrhea, no nausea, no vomiting, no abdominal pain. NEUROLOGICAL: No headaches, no weakness, no numbness. HEMATOLOGICAL: Denies any bleeding or petechiae. GENITOURINARY: Denies any burning micturition, frequency, or urgency. MUSCULOSKELETAL/RHEUMATOLOGICAL: Denies any joint pain, swelling, or any muscle pain. ENDOCRINE: Denies any polyuria or polydipsia. The rest of the 14-point review of systems is negative. PHYSICAL EXAMINATION: GENERAL: The patient is alert and oriented x3, not in any acute distress. Well developed, well nourished. HEENT: Pupils are round and equally reacting to light. EOMI. No scleral icterus. No conjunctival pallor. Normocephalic, atraumatic. No pharyngeal erythema. No thyromegaly. CARDIOVASCULAR: S1 and S2 present. No murmurs, rubs, or gallops. PULMONARY: Chest is clear to auscultation, no wheezing or crackles. ABDOMEN: Soft, nontender, nondistended, normoactive bowel sounds. No palpable organomegaly. MUSCULOSKELETAL: No joint swelling or deformity. EXTREMITIES: No cyanosis, clubbing, or pedal edema. NEUROLOGICAL: Gross neurological examination did not reveal any focal deficits. SKIN: No rashes. Assessment and plan Recurrent falls Presyncope Chronic total occlusion of left ICA Insulin-dependent diabetes mellitus Monitor vital signs Monitor CBC Monitor CMP Continue telemetry monitoring Fall precautions Ordered D-dimer Ordered 2D echo check orthostatics Ordered EEG Check blood sugar levels ACHS, ordered sliding scale insulin Resume home meds Consult cardiology Consult neurology Consult PT OT Labs and medication were reviewed.. Continue same treatment. Continue with symptomatic treatment. Resume home medication. Monitor labs and vitals. DVT and GI prophylaxis. Further recommendations as per clinical course of the patient Dictation was produced using [employer] dictation software. please excuse any grammatical, word or spelling errors. 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, NEEDLE ASPIRATION LEFT EYE Q 3 MONTHS, PAIN CLINIC Past Anesthesia/Blood Transfusion Reactions: No Reported Reaction Past Psychological History: Anxiety Smoking Status: Current every day smoker Past Alcohol Use History: None Reported Past Drug Use History: None Reported - Past Family History Mother Family Medical History: Cancer Additional Family Medical History / Comment(s): BREAST Sister(s) Family Medical History: Cancer Medications and Allergies Home Medications Medication Instructions Recorded Confirmed Type ALPRAZolam [Xanax] 2 mg PO HS 02/24/14 12/31/23 History Hydrocodone/Acetaminophen 1 tab PO BID 04/13/15 12/31/23 History [Hydrocodon-Acetaminoph 7.5-325] HYDROcodone/APAP 7.5-325MG [[place] 1 tab PO DAILY PRN 12/31/23 12/31/23 History 7.5-325] Insulin Aspart [NovoLOG Flexpen] 30 units SQ AC-TID 12/31/23 12/31/23 History Insulin Glargine,Hum.rec.anlog 40 units SQ DAILY 12/31/23 12/31/23 History [Lantus Solostar Pen] lisinopriL [Zestril] 5 mg PO DAILY 12/31/23 12/31/23 History Allergies Allergy/AdvReac Type Severity Reaction Status Date / Time No Known Allergies Allergy Verified 12/31/23 10:50 Physical Exam Vitals: Vital Signs Temp Pulse Pulse Resp BP BP Pulse Ox 12/31/23 07:36 98.0 F 93 17 176/83 96 12/31/23 05:40 86 22 150/83 99 12/31/23 03:19 91 22 138/67 95 12/31/23 00:18 98.5 F 93 18 158/92 12/30/23 21:34 96 20 128/76 96 12/30/23 19:25 98.7 F 99 18 128/76 98 Intake and Output 12/30/23 12/31/23 12/31/23 22:59 06:59 14:59 Other: Weight 108.862 kg Results CBC & Chem 7: 12/30/23 19:58 12/30/23 19:58 Labs: Abnormal Lab Results - Last 24 Hours (Table) 12/30/23 12/30/23 12/30/23 Range/Units 19:58 19:58 21:29 Neutrophils # 8.0 H (1.3-7.7) k/uL Chloride 109 H (98-107) mmol/L Carbon Dioxide 21 L (22-30) mmol/L BUN 24 H (9-20) mg/dL Glucose 190 H (74-99) mg/dL POC Glucose (mg/dL) 180 H (70-110) mg/dL Total Protein 5.4 L (6.3-8.2) g/dL Albumin 3.0 L (3.5-5.0) g/dL Urine Protein (Negative) Urine Glucose (UA) (Negative) Urine Blood (Negative) Hyaline Casts (0-2) /lpf Urine Mucus (None) /hpf 12/30/23 12/31/23 12/31/23 Range/Units 22:29 00:18 07:42 Neutrophils # (1.3-7.7) k/uL Chloride (98-107) mmol/L Carbon Dioxide (22-30) mmol/L BUN (9-20) mg/dL Glucose (74-99) mg/dL POC Glucose (mg/dL) 193 H 217 H (70-110) mg/dL Total Protein (6.3-8.2) g/dL Albumin (3.5-5.0) g/dL Urine Protein 2+ H (Negative) Urine Glucose (UA) 1+ H (Negative) Urine Blood Trace H (Negative) Hyaline Casts 17 H (0-2) /lpf Urine Mucus Rare H (None) /hpf
[2023-12-31] MEDS: lisinopriL 5 MG TAB PO SCH (15:20)
[2023-12-31 16:30] LABS: Glucose,Whole Blood 200 mg/dL (70-110)
[2023-12-31 20:22] LABS: Glucose,Whole Blood 276 mg/dL (70-110)
[2024-01-01 06:18] LABS: Glucose,Whole Blood 170 mg/dL (70-110)
[2024-01-01 08:33] LABS: Basophils # (A) 0.04 X 10*3/uL (0.00-0.10); Basophils % (A) 0.5 %; Eosinophils # (A) 0.18 X 10*3/uL (0.04-0.35); Eosinophils % (A) 2.3 %; HCT 45.9 % (39.6-50.0); HGB 15.4 g/dL (13.0-17.0); Lymphocytes # (A) 2.01 X 10*3/uL (0.90-5.00); Lymphocytes % (A) 25.2 %; MCH 30.4 pg (27.0-32.0); MCHC 33.6 g/dL (32.0-37.0); MCV 90.7 FL (80.0-97.0); Mean Platelet Volume 11.3 FL (9.5-12.2); Monocytes # (A) 0.68 X 10*3/uL (0.20-1.00); Monocytes % (A) 8.5 %; NRBC Per 100 WBC 0 X 10*3/uL (0.00-0.01); Neutrophils # (A) 5.05 X 10*3/uL (1.80-7.70); Neutrophils % (A) 63.2 %; Platelet Count 198 X 10*3/uL (140-440); RBC 5.06 X 10*6/uL (4.40-5.60); RDW 12.8 % (11.5-14.5); WBC 7.98 X 10*3/uL (4.50-10.00)
[2024-01-01 08:39] LABS: ALT 16 U/L (10-49); AST 21 U/L (14-35); Albumin 3.3 g/dL (3.8-4.9); Albumin/Globulin Ratio 1.65 Ratio (1.60-3.17); Alkaline Phosphatase 91 U/L (41-126); BUN/Creat Ratio 26.62 Ratio (12.00-20.00); Blood Urea Nitrogen 21.3 mg/dL (9.0-27.0); Calcium 8.6 mg/dL (8.7-10.3); Carbon Dioxide 24.8 mmol/L (21.6-31.8); Chloride 106 mmol/L (96-109); Glucose 187 mg/dL (70-110); Potassium 3.9 mmol/L (3.5-5.5); Sodium 140 mmol/L (135-145); Total Bilirubin 0.3 mg/dL (0.3-1.2); Total Protein 5.3 g/dL (6.2-8.2)
--- NOTE | 2024-01-01 10:11 | P.PN ---
Subjective Progress Note Date: 01/01/24 Principal diagnosis: Generalized weakness and fatigue The patient is a pleasant 68-year-old gentleman with diabetes and hypertension was admitted to the hospital with generalized weakness and fatigue and he underwent workup including EKG showed RBBB and cardiac enzymes came in to be unremarkable. Orthostatic blood pressure was checked and came in to be abnormal with about 12 mm drop in the systolic pressure. Currently he is on lisinopril at 5 mg p.o. daily. No symptoms of chest pain or chest discomfort or shortness of breath or any presyncope or syncope. The examination is remarkable for regular rhythm with a distant heart sounds. The echo still pending Assessment Generalized weakness but no presyncope or syncope Borderline orthostatic blood pressure drop Diabetes Plan Follow-up on the echocardiogram Decrease the dose of lisinopril Follow-up with the patient Objective - Vital Signs Vital signs: Vital Signs Temp 98.5 F 01/01/24 07:41 Pulse 87 01/01/24 07:41 Resp 18 01/01/24 07:41 BP 113/75 01/01/24 07:41 Pulse Ox 97 01/01/24 07:41 FiO2 Intake & Output 12/31/23 01/01/24 01/01/24 18:59 06:59 18:59 Weight 108.862 kg Other: # Voids 3 3 # Bowel Movements 1 - Labs CBC & Chem 7: 01/01/24 04:33 01/01/24 04:33 Labs: Abnormal Lab Results - Last 24 Hours (Table) 12/31/23 12/31/23 12/31/23 Range/Units 11:46 16:26 20:21 BUN/Creatinine Ratio (12.00-20.00) Ratio Glucose (70-110) mg/dL POC Glucose (mg/dL) 272 H 200 H 276 H (70-110) mg/dL Hemoglobin A1c (<=6.0) % Calcium (8.7-10.3) mg/dL Total Protein (6.2-8.2) g/dL Albumin (3.8-4.9) g/dL 01/01/24 01/01/24 01/01/24 Range/Units 04:33 04:33 06:17 BUN/Creatinine Ratio 26.62 H (12.00-20.00) Ratio Glucose 187 H (70-110) mg/dL POC Glucose (mg/dL) 170 H (70-110) mg/dL Hemoglobin A1c 9.5 H (<=6.0) % Calcium 8.6 L (8.7-10.3) mg/dL Total Protein 5.3 L (6.2-8.2) g/dL Albumin 3.3 L (3.8-4.9) g/dL
--- NOTE | 2024-01-01 10:46 | CA ---
Transthoracic Echo Report Name: Roberto Cage Age: 68 Gender: M : 1955 Exam Date: 01/01/2024 08:17 Exam Location: [facility] Ht (in): 66 Wt (lb): 240 Ordering Physician: Enrike Colvin MD Attending/Referring Phys: Coke Oven Patcher Aye Mena RDCS Procedure CPT: Indications: presyncope Cardiac Hx: Technical Quality: Technically difficult study Contrast 1: Definity Total Dose (mL): 2 Contrast 2: Total Dose (mL): MEASUREMENTS (Male / Female) Normal Values 2D ECHO LV Diastolic Diameter PLAX 3.8 cm 4.2 - 5.9 / 3.9 - 5.3 cm LV Systolic Diameter PLAX 2.8 cm IVS Diastolic Thickness 1.1 cm 0.6 - 1.0 / 0.6 - 0.9 cm LVPW Diastolic Thickness 1.2 cm 0.6 - 1.0 / 0.6 - 0.9 cm LV Relative Wall Thickness 0.6 RV Internal Dim ED PLAX 3.1 cm LVOT Diameter 2.5 cm Aortic Root Diameter 3.4 cm LV Diastolic Volume MOD BP 130.2 cm??? 67 - 155 / 56 - 104 cm??? LV Systolic Volume MOD BP 66.4 cm??? 22 - 58 / 19 - 49 cm??? LV Ejection Fraction MOD BP 49.0 % >= 55 % LV Cardiac Index MOD BP 2382.9 cm???/min???m??? LV Diastolic Volume MOD 4C 128.0 cm??? LV Systolic Volume MOD 4C 68.9 cm??? LV Ejection Fraction MOD 4C 46.1 % LV Cardiac Index MOD 4C 2206.6 cm???/min???m??? LV Diastolic Length 4C 7.9 cm LV Systolic Length 4C 7.3 cm LV Diastolic Volume MOD 2C 125.5 cm??? LV Systolic Volume MOD 2C 63.6 cm??? LV Ejection Fraction MOD 2C 49.3 % LV Cardiac Index MOD 2C 2310.8 cm???/min???m??? LV Diastolic Length 2C 8.4 cm LV Systolic Length 2C 7.3 cm Ascending Aorta Diameter 3.0 cm DOPPLER AV Peak Velocity 128.0 cm/s AV Peak Gradient 6.6 mmHg AV Mean Velocity 91.3 cm/s AV Mean Gradient 3.6 mmHg AV Velocity Time Integral 25.1 cm LVOT Peak Velocity 107.2 cm/s LVOT Peak Gradient 4.6 mmHg LVOT Velocity Time Integral 19.7 cm LVOT Stroke Volume 97.0 cm??? LVOT Stroke Volume Index 44.9 ml/m??? LVOT Cardiac Index 3624.1 cm???/min???m??? AV Area Cont Eq vti 3.9 cm??? AV Area Cont Eq pk 4.1 cm??? Mitral E Point Velocity 55.0 cm/s Mitral A Point Velocity 79.2 cm/s Mitral E to A Ratio 0.7 MV Deceleration Time 111.2 ms MV E' Velocity 5.2 cm/s Mitral E to MV E' Ratio 10.6 PV Peak Velocity 76.6 cm/s PV Peak Gradient 2.3 mmHg FINDINGS Left Ventricle Left ventricular ejection fraction is estimated at 45-50 %. Mildly increased septal wall thickness. Mildly increased left ventricular systolic volume. Mildly decreased left ventricular ejection fraction. Hypokinetic anterior wall. Right Ventricle Right ventricle not well visualized. Unable to estimate the right ventricular systolic pressure. Right Atrium Right atrium not well visualized. Left Atrium Normal left atrial size. Mitral Valve Structurally normal mitral valve. No evidence for mitral valve prolapse. No mitral stenosis. Trace mitral regurgitation. Aortic Valve Trileaflet aortic valve. No aortic valve stenosis or regurgitation. Tricuspid Valve Structurally normal tricuspid valve. No tricuspid prolapse. No tricuspid stenosis. Trace tricuspid regurgitation. Pulmonic Valve Pulmonic valve not well visualized. No pulmonic stenosis. No pulmonic regurgitation. Pericardium No pericardial effusion. Aorta Normal size aortic root and proximal ascending aorta. CONCLUSIONS Technically difficult study for interpretation was poorly visualized endocardial Mildly impaired LV function with EF between 45-50% Previewed by: Dr. Elan Mojica MD (Electronically Signed) Final Date: 01 Jan 2024 10:45
[2024-01-01 11:08] LABS: Glucose,Whole Blood 259 mg/dL (70-110)
--- NOTE | 2024-01-01 15:03 | P.PN ---
Subjective Progress Note Date: 01/01/24 History of present illness; patient is 68-year-old gentleman with past medical history significant for diabetes mellitus presented to ER for complaint of generalized weakness. Patient stated that he was all right till yesterday when after getting up in the morning he started noticing that he was very lightheaded and dizzy. Denies any significant weakness of any extremity. Denies any slurred speech or facial droop. Later while ambulating patient lost his balance and fell on the ground. Patient was so weak that he was unable to get up from the ground, patient was helped later by his son get up from the ground. Patient had another fall later in the day again there was no complaint of loss of consciousness or any prodromal symptoms prior to falling. Patient denies chest pain no complaint of shortness of breath. There is no complaint fever or chills. Initial lab work done in the ER showed WBC 10.3, hemoglobin 10.7, platelet count 205, sodium 137, potassium 4, BUN 24, creatinine 0.68, glucose 190, lactate 1.5. UA negative for any infection EKG done in the ER showed heart rate of 98, no ST segment elevation or depression seen, no T-wave inversions seen. 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 Neurology evaluation is pending at this time. Adjustments to medications being made per cardiology and also recommending PT/OT therapy evaluation. Per sons at the bedside patient has been having increased unsteady gait with frequent falls and having generalized weakness and memory lapses that have been progressively getting worse. Son reports he had to come stay with him and is currently living with him. Will await PT/OT therapy evaluation although signs report they do not prefer to take their father to rehab. EEG was ordered and pending along with MRI of the brain. Patient is afebrile with no reported chest pain or shortness of breath. Patient is tolerating diet with no reported nausea or vomiting. Continue monitoring Accu-Cheks before meals and at bedtime and will adjust insulins accordingly. Hemoglobin A1c is uncontrolled at 9.5. Review of systems: Constitutional: reports of fatigue, no fever, or chills Cardiovascular: No reports of chest pain or palpitations Respiratory: No reports of shortness of breath or cough GI: No reports of nausea, vomiting, or diarrhea : No reports of dysuria or retention Neurovascular: reports of generalized weakness and recurrent falls All medications have been reviewed PHYSICAL EXAMINATION: GENERAL: The patient is asleep although arousable, alert and oriented x3, not in any acute distress. Well developed, well nourished. Elderly appearing, obese HEENT: Pupils are round and equally reacting to light. EOMI. No scleral icterus. No conjunctival pallor. Normocephalic, atraumatic. No pharyngeal erythema. No thyromegaly. CARDIOVASCULAR: S1 and S2 muffled PULMONARY: Chest is clear to auscultation, no wheezing or crackles. ABDOMEN: Soft, obese nontender, nondistended, normoactive bowel sounds. No palpable organomegaly. MUSCULOSKELETAL: No joint swelling or deformity. EXTREMITIES: No cyanosis, clubbing, or pedal edema. NEUROLOGICAL: Gross neurological examination did not reveal any focal deficits. Diffusely weak SKIN: No rashes. Assessment: Recurrent falls Presyncope Chronic total occlusion of left ICA Insulin-dependent diabetes mellitus, uncontrolled with hyperglycemia, hemoglobin A1c is 9.5 Obesity with a BMI of 38.7 History of anxiety Continued ongoing nicotine dependence History of osteoarthritis History of neuropathy GI prophylaxis DVT prophylaxis Full code Plan: Continue with current medications and close monitoring with neurology evaluation pending. EEG is ordered and pending final read and MRI of the brain is ordered Recommend PT/OT therapy Cardiology following making adjustments to medications, recommend orthostatic vitals daily Encouraged to increase activity as tolerated Continue close monitoring of blood sugars before meals and at bedtime as well as 2 AM and will adjust insulins accordingly We will follow-up on repeat labs 2D echo ordered and pending Other home medications reviewed and resumed as appropriate Will discuss further with case management/social work regarding discharge planning once stabilized. Family at the bedside reports one of the sons is living with him and will help take care of him and prefers not to put their father in a halfway Due to multiple complex medical issues, prognosis is guarded The impression and plan of care has been dictated by Nurse Ton Pacheco as directed. Dr. Leydi MD I have performed a history and examination and MDM of this patient, discussed the same with the dictator, and agree with the dictator's assessment and plan as written ,documented as a scribe. Based on total visit time, I have performed more than 50% of the visit. Objective - Vital Signs Vital signs: Vital Signs Temp 98.5 F 01/01/24 07:41 Pulse 87 01/01/24 07:41 Resp 18 01/01/24 07:41 BP 113/75 01/01/24 07:41 Pulse Ox 97 01/01/24 07:41 FiO2 Intake & Output 12/31/23 01/01/24 01/01/24 18:59 06:59 18:59 Weight 108.862 kg Other: # Voids 3 3 # Bowel Movements 1 - Labs CBC & Chem 7: 01/01/24 04:33 01/01/24 04:33 Labs: Abnormal Lab Results - Last 24 Hours (Table) 12/31/23 12/31/23 12/31/23 Range/Units 09:20 11:46 16:26 D-Dimer 0.60 H (<0.60) mg/L FEU BUN/Creatinine Ratio (12.00-20.00) Ratio Glucose (70-110) mg/dL POC Glucose (mg/dL) 272 H 200 H (70-110) mg/dL Hemoglobin A1c (<=6.0) % Calcium (8.7-10.3) mg/dL Total Protein (6.2-8.2) g/dL Albumin (3.8-4.9) g/dL 12/31/23 01/01/24 01/01/24 Range/Units 20:21 04:33 04:33 D-Dimer (<0.60) mg/L FEU BUN/Creatinine Ratio 26.62 H (12.00-20.00) Ratio Glucose 187 H (70-110) mg/dL POC Glucose (mg/dL) 276 H (70-110) mg/dL Hemoglobin A1c 9.5 H (<=6.0) % Calcium 8.6 L (8.7-10.3) mg/dL Total Protein 5.3 L (6.2-8.2) g/dL Albumin 3.3 L (3.8-4.9) g/dL 05/06/24 Range/Units 06:17 D-Dimer (<0.60) mg/L FEU BUN/Creatinine Ratio (12.00-20.00) Ratio Glucose (70-110) mg/dL POC Glucose (mg/dL) 170 H (70-110) mg/dL Hemoglobin A1c (<=6.0) % Calcium (8.7-10.3) mg/dL Total Protein (6.2-8.2) g/dL Albumin (3.8-4.9) g/dL
--- NOTE | 2024-01-01 15:09 | P.CNNES ---
History of Present Illness Consult date: 01/01/24 Requesting physician: Enrike Colvin History of Present Illness: This is a 68-year-old gentleman who presents to the emergency department because of fall, confusion. The son is at bedside and helps with the history. Patient resides with his son, and it seems yesterday patient got up and felt light- headed and dizzy and he got up one of his socks was loose and he stepped on it and feel. He denies any loss of consciousness. Then he had another episode and unsure how he fell. The son felt he was shaking on one side and was confused and mumbling. Denies urinary or bowel incontinence or tongue bite. Unsure duration of shaking. No history of seizures or stroke. He feels drastically better and son agrees his confusion has improved. Patient is diabetic and has poor vision due to diabetic retinopathy. Some of the work-up during this hospital visit consisted of: Repeat Ortho is positive from sitting to standing of systolic drop of blood pr essure. cbc with diff is unremarkable. HbA1c: 9.5 Plasma lactic veing is 1.5 CT head is no acute intracranial abnormality. I reviewed it and agree. CTA head and neck: Chronic total occlusion left ICA with chronic total occlusion left vertebral artery 2D echo: Technically difficult study. Mild impaired LV function with EF 45-50% Review of Systems The positive and negative as per HPI. 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, NEEDLE ASPIRATION LEFT EYE Q 3 MONTHS, [facility] Past Anesthesia/Blood Transfusion Reactions: No Reported Reaction Past Psychological History: Anxiety Smoking Status: Current every day smoker Past Alcohol Use History: None Reported Past Drug Use History: None Reported - Past Family History Mother Family Medical History: Cancer Additional Family Medical History / Comment(s): BREAST Sister(s) Family Medical History: Cancer Medications and Allergies Home Medications Medication Instructions Recorded Confirmed Type ALPRAZolam [Xanax] 2 mg PO HS 02/24/14 12/31/23 History Hydrocodone/Acetaminophen 1 tab PO BID 04/13/15 12/31/23 History [Hydrocodon-Acetaminoph 7.5-325] HYDROcodone/APAP 7.5-325MG [[place] 1 tab PO DAILY PRN 12/31/23 12/31/23 History 7.5-325] Insulin Aspart [NovoLOG Flexpen] 30 units SQ AC-TID 12/31/23 12/31/23 History Insulin Glargine,Hum.rec.anlog 40 units SQ DAILY 12/31/23 12/31/23 History [Lantus Solostar Pen] lisinopriL [Zestril] 5 mg PO DAILY 12/31/23 12/31/23 History Allergies Allergy/AdvReac Type Severity Reaction Status Date / Time No Known Allergies Allergy Verified 12/31/23 10:50 Physical Examination - Vital Signs Vital Signs: Vital Signs Temp Pulse Pulse Pulse Resp BP BP 01/01/24 11:59 97.6 F 79 80 88 18 144/74 01/01/24 07:41 98.5 F 87 18 01/01/24 02:39 81 79 83 143/80 01/01/24 02:00 98.6 F 81 14 12/31/23 20:00 98 F 84 14 143/82 BP BP Pulse Ox FiO2 01/01/24 11:59 124/72 134/82 95 01/01/24 07:41 113/75 97 01/01/24 02:39 133/97 152/88 01/01/24 02:00 152/88 96 12/31/23 20:00 98 Intake and Output 12/31/23 01/01/24 01/01/24 22:59 06:59 14:59 Other: # Voids 3 3 General: Is a obese gentleman, sitting in a recliner chair and is not in acute distress. He is eating his lunch. Neuro: The patient is awake, alert, oriented to self, place and time. Is following simple commands. No aphasia or neglect. Pupils are round, equal and reactive to light bilaterally. Visual ku is I had to place my finger closer to his face since has poor vision but appear full. EOM intact and no nystagmus. Normal facial sensation to touch. No facial weakness. No dysarthria. Hearing is normal to hand rub bilaterally. TOngue is midline an d moves side to side without difficulty. . Motor: Strength is 5/5 throughout. Sensation is normal. Cerebellar: Upper is normal. Reflex: 1+ Plantars are mute bilaterally. Results - Laboratory Findings CBC and BMP: 01/01/24 04:33 01/01/24 04:33 Abnormal Lab Findings: Abnormal Labs 12/30/23 12/30/23 12/30/23 19:58 19:58 21:29 Neutrophils # 8.0 H D-Dimer Chloride 109 H Carbon Dioxide 21 L BUN 24 H BUN/Creatinine Ratio Glucose 190 H POC Glucose (mg/dL) 180 H Hemoglobin A1c Calcium Total Protein 5.4 L Albumin 3.0 L Urine Protein Urine Glucose (UA) Urine Blood Hyaline Casts Urine Mucus 12/30/23 12/31/23 12/31/23 22:29 00:18 07:42 Neutrophils # D-Dimer Chloride Carbon Dioxide BUN BUN/Creatinine Ratio Glucose POC Glucose (mg/dL) 193 H 217 H Hemoglobin A1c Calcium Total Protein Albumin Urine Protein 2+ H Urine Glucose (UA) 1+ H Urine Blood Trace H Hyaline Casts 17 H Urine Mucus Rare H 12/31/23 12/31/23 12/31/23 09:20 11:46 16:26 Neutrophils # D-Dimer 0.60 H Chloride Carbon Dioxide BUN BUN/Creatinine Ratio Glucose POC Glucose (mg/dL) 272 H 200 H Hemoglobin A1c Calcium Total Protein Albumin Urine Protein Urine Glucose (UA) Urine Blood Hyaline Casts Urine Mucus 12/31/23 01/01/24 01/01/24 20:21 04:33 04:33 Neutrophils # D-Dimer Chloride Carbon Dioxide BUN BUN/Creatinine Ratio 26.62 H Glucose 187 H POC Glucose (mg/dL) 276 H Hemoglobin A1c 9.5 H Calcium 8.6 L Total Protein 5.3 L Albumin 3.3 L Urine Protein Urine Glucose (UA) Urine Blood Hyaline Casts Urine Mucus 01/01/24 01/01/24 06:17 11:07 Neutrophils # D-Dimer Chloride Carbon Dioxide BUN BUN/Creatinine Ratio Glucose POC Glucose (mg/dL) 170 H 259 H Hemoglobin A1c Calcium Total Protein Albumin Urine Protein Urine Glucose (UA) Urine Blood Hyaline Casts Urine Mucus Assessment and Plan Assessment: This is a 68 year-old gentleman who presents because of feeling light- headedness, dizzy and had mechanical fall with LOC. He had another fall and son felt he was having shaking of one side of body. No history of seizures. His orthostatic is positive. He has old left ICA occlusion and left vertebral occlusion. Presyncopal episodes: Seems due to positive orthostatic hypotension Positive orthostatic hypotension Shaking of extremities at home: Unsure exact etiology. R/O seizure Chronic left ICA occlusion Chronic left vertebral occlusion DM and is uncontrolled: HbA1c 9.5 Diabetic retinopathy Plan: Routine EEG and MRI Brain are ordered. I started the patient on ASA 81mg daily. I started the patient on Lipitor 20mg qhs for secondary stroke prophylaxis especially with vascular risk factors Continue neuro checks monitoring tech PT, OT are consult Cardiology is consulted. For orthostatic hypotension will defer management to primary and cardiology team. The plan is discussed with patient and his son who is at bedside. Thank you for the consultation. Time with Patient: Greater than 30
[2024-01-01 16:01] LABS: Glucose,Whole Blood 276 mg/dL (70-110)
[2024-01-01] MEDS: ASPIRIN 81 MG PO SCH (16:44)
[2024-01-01 20:35] LABS: Glucose,Whole Blood 283 mg/dL (70-110)
[2024-01-01] MEDS: ATORVASTATIN 20 MG TAB PO SCH (22:12)
--- NOTE | 2024-01-02 05:44 | EEG ---
ELECTROENCEPHALOGRAM REPORT CLINICAL HISTORY: This is a 68-year-old gentleman with presyncopal episode and shaking of extremities. The video EEG is obtained to evaluate for seizure epileptiform activity. RELEVANT MEDICATIONS: The patient is not on any antiepileptic drugs. EEG TYPE: This is a routine 21-channel EEG with video using the 10/20 electrode placement system. DESCRIPTION: Wakefulness is obtained. During awake state, the posterior-dominant rhythm consists of predominantly low voltage of 8.5 to 9 hertz activity that is well modulated, well sustained. There is no physiological stage 2 sleep architecture. There is no focal slowing. Interictal and ictal is none. ACTIVATION PROCEDURE: Photic stimulation did not evoke a posterior driving response. There is no abnormality during the photic stimulation. Hyperventilation is not performed. CLINICAL INTERPRETATION: This is a normal routine EEG. There is no focal slowing, epileptiform discharge, or seizure on the EEG. A normal routine EEG does not rule out underlying epilepsy. Clinical correlation is recommended. SHORTY / RED: [id number] /
[2024-01-02 05:56] LABS: Glucose,Whole Blood 218 mg/dL (70-110)
[2024-01-02 11:27] LABS: Glucose,Whole Blood 355 mg/dL (70-110)
[2024-01-02] MEDS: INSULIN DETEMIR (LEVEMIR) 100 UNIT/ML SYR SQ SCH (11:32)
--- NOTE | 2024-01-02 11:38 | P.PN ---
Subjective Progress Note Date: 01/02/24 Principal diagnosis: Generalized weakness and fatigue The patient is a pleasant 68-year-old gentleman with diabetes and hypertension was admitted to the hospital with generalized weakness and fatigue and he underwent workup including EKG showed RBBB and cardiac enzymes came in to be unremarkable. Orthostatic blood pressure was checked and came in to be abnormal with about 12 mm drop in the systolic pressure. Currently he is on lisinopril at 5 mg p.o. daily. No symptoms of chest pain or chest discomfort or shortness of breath or any presyncope or syncope. The examination is remarkable for regular rhythm with a distant heart sounds. The echo still pending January 02, 2024 The patient was seen and evaluated this morning. He stated that he is feeling somewhat better. He continues to have orthostatic blood pressure change. He is in process of having an MRI. He underwent an echocardiogram which revealed mildly impaired LV function. The ejection fraction is around 45%. No pain in the chest and no shortness of breath. Overall from a cardiovascular standpoint of view, he seems to be stable beside the orthostatic blood pressure change. The examination is remarkable for regular rhythm with a soft systolic murmur and clear breathing sounds bilaterally. Assessment Generalized weakness but no presyncope or syncope Borderline orthostatic blood pressure drop Diabetes Plan Continue the current medical regimen Follow-up with the patient Objective - Vital Signs Vital signs: Vital Signs Temp 98.4 F 01/02/24 07:11 Pulse 87 01/02/24 07:11 Resp 20 01/02/24 07:11 BP 150/78 01/02/24 07:11 Pulse Ox 97 01/02/24 10:02 FiO2 96 01/01/24 17:58 Intake & Output 01/01/24 01/02/24 01/02/24 18:59 06:59 18:59 Other: # Voids 1 # Bowel Movements 1 - Labs CBC & Chem 7: 01/01/24 04:33 01/01/24 04:33 Labs: Abnormal Lab Results - Last 24 Hours (Table) 01/01/24 01/01/24 01/02/24 Range/Units 16:00 20:34 05:55 POC Glucose (mg/dL) 276 H 283 H 218 H (70-110) mg/dL 01/02/24 Range/Units 11:26 POC Glucose (mg/dL) 355 H (70-110) mg/dL
[2024-01-02 13:42] VITALS: BMI 38.7
[2024-01-02] MEDS ORDERED: ALPRAZolam 0.25 MG TAB PO PRN (15:09)
[2024-01-02 17:03] LABS: Glucose,Whole Blood 237 mg/dL (70-110)
--- NOTE | 2024-01-02 19:08 | P.PN ---
Subjective Progress Note Date: 01/02/24 I am following-up with patient and he feels he is doing well and no further confusion, presyncopal episode or shaking of extremities. He wants to be discharged and does not want to wait for MRI Brain as inpatient. Objective - Vital Signs Vital signs: Vital Signs Temp 97.7 F 01/02/24 13:54 Pulse 97 01/02/24 18:00 Resp 20 01/02/24 13:54 BP 164/98 01/02/24 18:00 Pulse Ox 96 01/02/24 13:54 FiO2 96 01/01/24 17:58 Intake & Output 01/02/24 01/02/24 01/03/24 06:59 18:59 06:59 Weight 108.862 kg Other: # Voids 3 - Exam General: Is a obese gentleman, sitting in a recliner chair and is not in acute distress. He is eating his lunch. Neuro: The patient is awake, alert, oriented to self, place and time. Is following simple commands. No aphasia or neglect. Pupils are round, equal and reactive to light bilaterally. Visual ku is I had to place my finger closer to his face since has poor vision but appear full. EOM intact and no nystagmus. Normal facial sensation to touch. No facial weakness. No dysarthria. Hearing is normal to hand rub bilaterally. TOngue is midline and moves side to side without difficulty. . Motor: Strength is 5/5 throughout. Sensation is normal. Cerebellar: Upper is normal. Reflex: 1+ Plantars are mute bilaterally. Some of the work-up during this hospital visit consisted of: Repeat Ortho is positive from sitting to standing of systolic drop of blood pressure. cbc with diff is unremarkable. HbA1c: 9.5 Plasma lactic veing is 1.5 CT head is no acute intracranial abnormality. I reviewed it and agree. CTA head and neck: Chronic total occlusion left ICA with chronic total occlusion left vertebral artery 2D echo: Technically difficult study. Mild impaired LV function with EF 45-50% Routine EEG: Normal. - Labs CBC & Chem 7: 01/01/24 04:33 01/01/24 04:33 Labs: Abnormal Lab Results - Last 24 Hours (Table) 01/01/24 01/02/24 01/02/24 Range/Units 20:34 05:55 11:26 POC Glucose (mg/dL) 283 H 218 H 355 H (70-110) mg/dL 01/02/24 Range/Units 17:01 POC Glucose (mg/dL) 237 H (70-110) mg/dL Assessment and Plan Assessment: This is a 68 year-old gentleman who presents because of feeling light- headedness, dizzy and had mechanical fall with LOC. He had another fall and son felt he was having shaking of one side of body. No history of seizures. His orthostatic is positive. He has old left ICA occlusion and left vertebral occlusion. Presyncopal episodes: Seems due to positive orthostatic hypotension Positive orthostatic hypotension Shaking of extremities at home: Unsure exact etiology. Possibly due to above. Routine EEG is normal. Chronic left ICA occlusion Chronic left vertebral occlusion DM and is uncontrolled: HbA1c 9.5 Diabetic retinopathy Plan: Pending MRI Brain. The patient does not want to remain waiting for the MRI as i npatient and rather would like it as outpatient. I started the patient on ASA 81mg daily. I started the patient on Lipitor 20mg qhs for secondary stroke prophylaxis especially with vascular risk factors Continue neuro checks groundwater monitoring technician PT, OT are consult Cardiology is consulted. For orthostatic hypotension will defer management to primary and cardiology team. The plan is discussed with patient and N.P. from primary team. Time with Patient: Less than 30
[2024-01-02 21:15] LABS: Glucose,Whole Blood 303 mg/dL (70-110)
--- NOTE | 2024-01-03 06:05 | P.PN ---
Subjective Progress Note Date: 01/02/24 History of present illness; patient is 68-year-old gentleman with past medical history significant for diabetes mellitus presented to ER for complaint of generalized weakness. Patient stated that he was all right till yesterday when after getting up in the morning he started noticing that he was very lightheaded and dizzy. Denies any significant weakness of any extremity. Denies any slurred speech or facial droop. Later while ambulating patient lost his balance and fell on the ground. Patient was so weak that he was unable to get up from the ground, patient was helped later by his son get up from the ground. Patient had another fall later in the day again there was no complaint of loss of consciousness or any prodromal symptoms prior to falling. Patient denies chest pain no complaint of shortness of breath. There is no complaint fever or chills. Initial lab work done in the ER showed WBC 10.3, hemoglobin 10.7, platelet count 205, sodium 137, potassium 4, BUN 24, creatinine 0.68, glucose 190, lactate 1.5. UA negative for any infection EKG done in the ER showed heart rate of 98, no ST segment elevation or depression seen, no T-wave inversions seen. 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 Neurology evaluation is pending at this time. Adjustments to medications being made per cardiology and also recommending PT/OT therapy evaluation. Per sons at the bedside patient has been having increased unsteady gait with frequent falls and having generalized weakness and memory lapses that have been progressively getting worse. Son reports he had to come stay with him and is currently living with him. Will await PT/OT therapy evaluation although signs report they do not prefer to take their father to rehab. EEG was ordered and pending along with MRI of the brain. Patient is afebrile with no reported chest pain or shortness of breath. Patient is tolerating diet with no reported nausea or vomiting. Continue monitoring Accu-Cheks before meals and at bedtime and will adjust insulins accordingly. Hemoglobin A1c is uncontrolled at 9.5. 01/02/2024 Patient is seen in follow-up today awaiting to undergo MRI of the brain with neurology following. Per nursing staff there is a large amount of MRIs pending within the hospital and patient will not be done until tomorrow. Patient wanting to leave and discussed with him about leaving AGAINST MEDICAL ADVICE. Patient is willing to stay to wait MRI. Patient is back to baseline in regards to mentation and has had no episodes of falls or passing out. Discussed with the patient about diabetes management and patient reports he follows with his primary care provider who manages his diabetes. Patient is afebrile with no reports of chest pain or shortness of breath. Review of systems: Constitutional: No reports of fatigue, no fever, or chills Cardiovascular: No reports of chest pain or palpitations Respiratory: No reports of shortness of breath or cough GI: No reports of nausea, vomiting, or diarrhea : No reports of dysuria or retention Neurovascular: No reports of generalized weakness All medications have been reviewed PHYSICAL EXAMINATION: GENERAL: The patient is awake sitting up in the chair, alert and oriented x3, not in any acute distress. Well developed, well nourished. Elderly appearing, obese HEENT: Pupils are round and equally reacting to light. EOMI. No scleral icterus. No conjunctival pallor. Normocephalic, atraumatic. No pharyngeal erythema. No thyromegaly. CARDIOVASCULAR: S1 and S2 muffled PULMONARY: Chest is clear to auscultation, no wheezing or crackles. ABDOMEN: Soft, obese nontender, nondistended, normoactive bowel sounds. No palpable organomegaly. MUSCULOSKELETAL: No joint swelling or deformity. EXTREMITIES: No cyanosis, clubbing, or pedal edema. NEUROLOGICAL: Gross neurological examination did not reveal any focal deficits. Diffusely weak SKIN: No rashes. Assessment: Recurrent falls Presyncope Chronic total occlusion of left ICA Insulin-dependent diabetes mellitus, uncontrolled with hyperglycemia, hemoglobin A1c is 9.5 Obesity with a BMI of 38.7 History of anxiety Continued ongoing nicotine dependence History of osteoarthritis History of neuropathy GI prophylaxis DVT prophylaxis Full code Plan: Continue with current medications and close monitoring with neurology following, patient is status post EEG and awaiting MRI of the brain. MRI will not be done until tomorrow Encouraged increase activity as tolerated. Family reports will be taking the patient home with no plans of rehab Cardiology following making adjustments to medications, recommend orthostatic vitals daily Continue close monitoring of blood sugars before meals and at bedtime as well as 2 AM and will adjust insulins accordingly Other home medications reviewed and resumed as appropriate Will discuss further with case management/social work regarding discharge planning once stabilized. Family at the bedside reports one of the sons is living with him and will help take care of him and prefers not to put their father in a usp Due to multiple complex medical issues, prognosis is guarded Awaiting MRI of the brain with possible discharge planning in the next 24 hours. Initially patient wanted to leave although is willing to stay for the MRI The impression and plan of care has been dictated by Norma Bearden, Nurse Practitioner as directed. Dr. Leydi MD I have performed a history and examination and MDM of this patient, discussed the same with the dictator, and agree with the dictator's assessment and plan as written ,documented as a scribe. Based on total visit time, I have performed more than 50% of the visit. Objective - Vital Signs Vital signs: Vital Signs Temp 98.4 F 01/02/24 07:11 Pulse 87 01/02/24 07:11 Resp 20 01/02/24 07:11 BP 150/78 01/02/24 07:11 Pulse Ox 97 01/02/24 10:02 FiO2 96 01/01/24 17:58 Intake & Output 01/01/24 01/02/24 01/02/24 18:59 06:59 18:59 Other: # Voids 1 # Bowel Movements 1 - Labs CBC & Chem 7: 01/01/24 04:33 01/01/24 04:33 Labs: Abnormal Lab Results - Last 24 Hours (Table) 01/01/24 01/01/24 01/01/24 Range/Units 11:07 16:00 20:34 POC Glucose (mg/dL) 259 H 276 H 283 H (70-110) mg/dL 01/02/24 Range/Units 05:55 POC Glucose (mg/dL) 218 H (70-110) mg/dL
[2024-01-03 07:01] LABS: Glucose,Whole Blood 185 mg/dL (70-110)
[2024-01-03] MEDS: INSULIN DETEMIR (LEVEMIR) 100 UNIT/ML SYR SQ SCH (07:05)
[2024-01-03 09:06] VITALS: PULSE 87; RESP 17; TEMP 99.1
[2024-01-03 10:17] LABS: Glucose,Whole Blood 326 mg/dL (70-110)
--- NOTE | 2024-01-03 11:47 | P.PN ---
Subjective HISTORY OF PRESENT ILLNESS: The patient is a pleasant 68-year-old gentleman with diabetes and hypertension was admitted to the hospital with generalized weakness and fatigue and he underwent workup including EKG showed RBBB and cardiac enzymes came in to be unremarkable. Orthostatic blood pressure was checked and came in to be abnormal with about 12 mm drop in the systolic pressure. Currently he is on lisinopril at 5 mg p.o. daily. No symptoms of chest pain or chest discomfort or shortness of breath or any presyncope or syncope. The examination is remarkable for regular rhythm with a distant heart sounds. The echo still pending January 02, 2024 The patient was seen and evaluated this morning. He stated that he is feeling somewhat better. He continues to have orthostatic blood pressure change. He is in process of having an MRI. He underwent an echocardiogram which revealed mildly impaired LV function. The ejection fraction is around 45%. No pain in the chest and no shortness of breath. Overall from a cardiovascular standpoint of view, he seems to be stable beside the orthostatic blood pressure change. The examination is remarkable for regular rhythm with a soft systolic murmur and clear breathing sounds bilaterally. 01/03/2024 Patient examined this morning at bedside. Patient denies chest pain or pressure. He denies shortness of breath. Orthostatic blood pressures obtained were negative. Patient is scheduled for MRI sometime today. Patient's lisinopril was decreased yesterday. Standing blood pressures are running a little bit on the high side which is okay as patient did have orthostatic hypotension during hospitalization. PHYSICAL EXAM: VITAL SIGNS: Reviewed. GENERAL: Well-developed in no acute distress. NECK: Supple. No JVD or thyromegaly LUNGS: Respirations even and unlabored. Lungs essentially clear to auscultation bilaterally. HEART: Regular rate and rhythm. S1 and S2 heard. EXTREMITIES: Normal range of motion. No clubbing or cyanosis. Peripheral pulses intact. No lower extremity edema ASSESSMENT: Generalized weakness but no presyncope or syncope Borderline orthostatic hypotension Diabetes PLAN: Continue current cardiac medications Patient is currently stable from a cardiac standpoint with no further inpatient recommendations Discharge per medicine We will sign off. Please reconsult if needed. Nurse practitioner note has been reviewed by physician. Signing provider agrees with the documented findings, assessment, and plan of care documented by DONOR CENTER TECHNICIAN as a scribe. Objective - Vital Signs Vital signs: Vital Signs Temp 99.1 F 01/03/24 07:33 Pulse 87 01/03/24 09:15 Resp 17 01/03/24 09:15 BP 168/95 01/03/24 07:33 Pulse Ox 94 L 01/03/24 07:33 FiO2 96 01/01/24 17:58 Intake & Output 01/02/24 01/03/24 01/03/24 18:59 06:59 18:59 Weight 108.862 kg Other: Voiding Method Toilet Toilet # Voids 3 2 - Labs CBC & Chem 7: 01/01/24 04:33 01/01/24 04:33 Labs: Abnormal Lab Results - Last 24 Hours (Table) 01/02/24 01/02/24 01/03/24 Range/Units 17:01 21:14 07:00 POC Glucose (mg/dL) 237 H 303 H 185 H (70-110) mg/dL 01/03/24 Range/Units 10:16 POC Glucose (mg/dL) 326 H (70-110) mg/dL
[2024-01-03 12:17] LABS: Glucose,Whole Blood 278 mg/dL (70-110)
[2024-01-03 12:55] VITALS: BP 136/84
--- NOTE | 2024-01-03 13:37 | P.PN ---
Subjective Progress Note Date: 01/03/24 I am following up with the patient and he feels about the same. He continues to wait for this MRI. He stated yesterday he was told blood pressure was hypotensive but today the cardiology notified him it seemed ok per the patient. Denies of any new neurological issues. Objective - Vital Signs Vital signs: Vital Signs Temp 99.1 F 01/03/24 07:33 Pulse 87 01/03/24 09:15 Resp 17 01/03/24 09:15 BP 136/84 01/03/24 12:00 Pulse Ox 94 L 01/03/24 07:33 FiO2 96 01/01/24 17:58 Intake & Output 01/02/24 01/03/24 01/03/24 18:59 06:59 18:59 Weight 108.862 kg Other: Voiding Method Toilet Toilet # Voids 3 2 - Exam General: Is a obese gentleman, sitting in a recliner chair and is not in acute distress. He is eating his lunch. Neuro: The patient is awake, alert, oriented to self, place and time. Is following simple commands. No aphasia or neglect. Pupils are round, equal and reactive to light bilaterally. Visual ku is I had to place my finger closer to his face since has poor vision but appear full. EOM intact and no nystagmus. Normal facial sensation to touch. No facial weakness. No dysarthria. Hearing is normal to hand rub bilaterally. TOngue is midline and moves side to side without difficulty. . Motor: Strength is 5/5 throughout. Sensation is normal. Cerebellar: Upper is normal. Reflex: 1+ Plantars are mute bilaterally. Some of the work-up during this hospital visit consisted of: Repeat Ortho is positive from sitting to standing of systolic drop of blood pressure. cbc with diff is unremarkable. HbA1c: 9.5 Plasma lactic veing is 1.5 CT head is no acute intracranial abnormality. I reviewed it and agree. CTA head and neck: Chronic total occlusion left ICA with chronic total occlusion left vertebral artery 2D echo: Technically difficult study. Mild impaired LV function with EF 45-50% Routine EEG: Normal. - Labs CBC & Chem 7: 01/01/24 04:33 01/01/24 04:33 Labs: Abnormal Lab Results - Last 24 Hours (Table) 01/02/24 01/02/24 01/03/24 Range/Units 17:01 21:14 07:00 POC Glucose (mg/dL) 237 H 303 H 185 H (70-110) mg/dL 01/03/24 01/03/24 Range/Units 10:16 12:12 POC Glucose (mg/dL) 326 H 278 H (70-110) mg/dL Assessment and Plan Assessment: This is a 68 year-old gentleman who presents because of feeling light- headedness, dizzy and had mechanical fall with LOC. He had another fall and son felt he was having shaking of one side of body. No history of seizures. His orthostatic is positive. He has old left ICA occlusion and left vertebral occlusion. Presyncopal episodes: Seems due to positive orthostatic hypotension Positive orthostatic hypotension Shaking of extremities at home: Unsure exact etiology. Possibly due to above. Routine EEG is normal. Chronic left ICA occlusion Chronic left vertebral occlusion DM and is uncontrolled: HbA1c 9.5 Diabetic retinopathy Plan: Pending MRI Brain and is schedule today. The patient does not want to remain waiting for the MRI if beyond today and rather would like it as outpatient. I started the patient on ASA 81mg daily. 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 For orthostatic hypotension will defer management to primary and cardiology team. Upon discharge recommend the patient to follow-up with her neurologist as an outpatient within 1 to 2 weeks Defer the rest of the medical management to primary and other specialist. The plan is discussed with patient, his son who is at bedside and his nurse. Time with Patient: Less than 30
--- NOTE | 2024-01-08 06:36 | P.DS ---
Providers Date of admission: 12/30/23 23:08 Expected date of discharge: 01/03/24 Attending physician: Raymond Franks Consults: 12/31/23 10:52 Consult Physician Urgent Consulting Provider: Pranay Jane Consult Reason/Comments: syncope Do you want consulting provider notified?: Yes Primary care physician: Padma Gomez Hospital Course: Final diagnosis Recurrent falls Presyncope likely secondary to orthostatic hypotension Chronic total occlusion of left ICA Insulin-dependent diabetes mellitus, uncontrolled with hyperglycemia, hemoglobin A1c is 9.5 Obesity with a BMI of 38.7 History of anxiety Continued ongoing nicotine dependence History of osteoarthritis History of neuropathy GI prophylaxis DVT prophylaxis Full code Discharge disposition Patient is being discharged in a stable condition with guarded prognosis to home. Patient will follow-up with Dr. Gomez in the outpatient setting upon discharge. Patient is to continue with current medications and close outpatient follow-up with neurology as scheduled. Total time taken is greater than 35 minutes. Hospital course This is a 68-year-old male who was recently admitted with increased falls with presyncope being closely monitored. Patient evaluated by neurology and noted to have chronic total occlusion and uncontrolled diabetes was scheduled for MRI although does not want to wait and would like to follow-up outpatient. Patient was evaluated by physical therapy recommending home and family will be staying with him to help care for him. Patient to follow-up with vascular surgery as well as cardiology outpatient as well. Please refer to other consultation notes for further HPI. Currently no reports of chest pain, shortness of breath, or palpitations. Patient is afebrile. No reports of nausea or vomiting and patient is tolerating diet. Patient will be discharged home today. Guarded prognosis and high risk for readmissions given patient's significant comorbidities and noncompliance Physical exam: Gen: This is a 68-year-old male who is awake, alert and oriented x 3, well- developed, well-nourished, obese, elderly appearing HEENT: Head is atraumatic, normocephalic. Pupils equal, round. Sclerae is anicteric. NECK: Supple. No JVD. No lymphadenopathy. No thyromegaly. LUNGS: Diminished breath sounds bilaterally otherwise clear to auscultation. No wheezes or rhonchi. No intercostal retractions. HEART: Regular rate and rhythm. No murmur. ABDOMEN: Soft. Obese. Bowel sounds are present. No masses. No tenderness. EXTREMITIES: No pedal edema. No calf tenderness. NEUROLOGICAL: Patient is awake, alert and oriented x3. Cranial nerves 2 through 12 are grossly intact. Please refer to medication reconciliation sheet for a list of medications. The impression and plan of care has been dictated by Norma Bearden, Nurse Practitioner as directed. Dr. Leydi MD I have performed a history and examination and MDM of this patient, discussed the same with the dictator, and agree with the dictator's assessment and plan as written ,documented as a scribe. Based on total visit time, I have performed more than 50% of the visit. Patient Condition at Discharge: Stable Plan - Discharge Summary New Discharge Prescriptions: New Nicotine 21Mg/24Hr Patch [Habitrol] 1 patch TRANSDERM DAILY patch Aspirin 81 mg PO DAILY #30 tab Atorvastatin [Lipitor] 20 mg PO HS #30 tab Acetaminophen Tab [Tylenol] 650 mg PO Q6HR PRN tab PRN Reason: Mild Pain Or Fever > 100.5 lisinopriL [Zestril] 2.5 mg PO DAILY #30 tab Continue ALPRAZolam [Xanax] 2 mg PO HS Hydrocodone/Acetaminophen [Hydrocodone/Acetaminophen 7.5-325] 1 tab PO BID Insulin Aspart [NovoLOG Flexpen] 30 units SQ AC-TID HYDROcodone/APAP 7.5-325MG [[place] 7.5-325] 1 tab PO DAILY PRN PRN Reason: Pain Changed Insulin Glargine,Hum.rec.anlog [Lantus Solostar Pen] 30 units SQ BID #0 Discontinued lisinopriL [Zestril] 5 mg PO DAILY Discharge Medication List ALPRAZolam [Xanax] 2 mg PO HS 02/24/14 [History] Hydrocodone/Acetaminophen [Hydrocodone/Acetaminophen 7.5-325] 1 tab PO BID 04/13/15 [History] HYDROcodone/APAP 7.5-325MG [[place] 7.5-325] 1 tab PO DAILY PRN 12/31/23 [History] Insulin Aspart [NovoLOG Flexpen] 30 units SQ AC-TID 12/31/23 [History] Acetaminophen Tab [Tylenol] 650 mg PO Q6HR PRN tab 01/03/24 [Rx] Aspirin 81 mg PO DAILY #30 tab 01/03/24 [Rx] Atorvastatin [Lipitor] 20 mg PO HS #30 tab 01/03/24 [Rx] Insulin Glargine,Hum.rec.anlog [Lantus Solostar Pen] 30 units SQ BID #0 01/03/24 [Rx] Nicotine 21Mg/24Hr Patch [Habitrol] 1 patch TRANSDERM DAILY patch 01/03/24 [Rx] lisinopriL [Zestril] 2.5 mg PO DAILY #30 tab 01/03/24 [Rx] Follow up Appointment(s)/Referral(s): Padma Gomez MD [Primary Care Provider] - 1-2 days [facility], [NON-STAFF] - 1 Week ([facility] can see you but not until you attend a follow up appt at Dr Gomez) Elan Mojica MD [STAFF PHYSICIAN] - 1 Week Kamar May MD [Medical Doctor] - 1 Week Activity/Diet/Wound Care/Special Instructions: Activity limited until follow-up Follow-up with primary care provider on discharge and discussed the need for possible outpatient MRI Follow-up with neurology outpatient Follow-up with cardiology outpatient Continue to monitor Accu-Cheks before meals and at bedtime and keep a diary of all readings for follow-up Hold insulin if blood sugars are 100 or less Continue heart healthy diabetic diet Discharge Disposition: HOME WITH HOME HEALTH SERVICES
== END 2024-01-03 12:53 | disposition home health service (06) ==
LOC: EC 19:17 → 5NMEDONC 23:08 → 4SSUR 12-31 01:15
PROVIDERS: ADMIT Hospitalist; ATTEND Hospitalist
DX: I95.1 Orthostatic hypotension (principal); E11.65 Type 2 diabetes mellitus with hyperglycemia; I65.22 Occlusion and stenosis of left carotid artery; E11.319 Type 2 diabetes mellitus with unspecified diabetic retinopathy without macular edema; M19.90 Unspecified osteoarthritis, unspecified site; F17.210 Nicotine dependence, cigarettes, uncomplicated; I45.10 Unspecified right bundle-branch block; I10 Essential (primary) hypertension; F41.9 Anxiety disorder, unspecified; E66.9 Obesity, unspecified; Z68.38 Body mass index [BMI] 38.0-38.9, adult
CPT/HCPCS: 96360; 96361; 99285; 36415 ×2; 94760; 95816; 93005; 97162; 97166; 85379; 83880; 80053 ×2; 83605; 83735; 84484 ×2; 85025 ×2; 85610; 85730; 81001; 83036; 71046; 70496; 70450; 70498; G0378 ×6; C8929; S4990 ×4; Q9957; Q9967; 93306

== ENCOUNTER 2024-05-18 04:58 | Emergency (ER) | payer MEDICARE ==
[2024-05-18 05:06] VITALS: RESP 18
[2024-05-18] MEDS: SODIUM CHLORIDE 0.9% 500 ML 500 ML IV ONE (05:31)
[2024-05-18] MEDS: ASPIRIN 81 MG PO STA (05:32)
[2024-05-18] MEDS: FAMOTIDINE 20 MG/2 ML VIAL IV STA (05:36)
--- NOTE | 2024-05-18 05:37 | ED ---
General Adult HPI - General Chief complaint: Fall Stated complaint: CP Time Seen by Provider: 05/18/24 05:06 Source: patient, EMS Mode of arrival: EMS Limitations: no limitations - History of Present Illness Initial comments: Pt is a pleasant 68 y/o gentleman presenting today for mechanical trip and fall. Pt's son called after the patient tripped on his sock and fell forward. The patient himself states that he is only here because his son called EMS and sent him in. Pt denies any complaints, pain or injury. Denies hitting his head or LOC. Denies chest pain, shortness of breath, abdominal pain, nausea, vomiting, diarrhea, lightheadedness, dizziness, fevers or chills, palpitations. Did recently have left great toe removed 2/2 complications from diabetes. Did mention mild dyspepsia on arrival to the ED, otherwise no complaints. - Related Data Home Medications Medication Instructions Recorded Confirmed ALPRAZolam [Xanax] 2 mg PO HS 02/24/14 12/31/23 Hydrocodone/Acetaminophen 1 tab PO BID 04/13/15 12/31/23 [Hydrocodone/Acetaminophen 7.5-325] HYDROcodone/APAP 7.5-325MG [[place] 1 tab PO DAILY PRN 12/31/23 12/31/23 7.5-325] Insulin Aspart [NovoLOG Flexpen] 30 units SQ AC-TID 12/31/23 12/31/23 Previous Rx's Medication Instructions Recorded Acetaminophen Tab [Tylenol] 650 mg PO Q6HR PRN tab 01/03/24 Aspirin 81 mg PO DAILY #30 tab 01/03/24 Atorvastatin [Lipitor] 20 mg PO HS #30 tab 01/03/24 Insulin Glargine,Hum.rec.anlog 30 units SQ BID #0 01/03/24 [Lantus Solostar Pen] Nicotine 21Mg/24Hr Patch [Habitrol] 1 patch TRANSDERM DAILY patch 01/03/24 lisinopriL [Zestril] 2.5 mg PO DAILY #30 tab 01/03/24 Allergies Allergy/AdvReac Type Severity Reaction Status Date / Time No Known Allergies Allergy Verified 05/18/24 05:05 Review of Systems ROS Statement: Those systems with pertinent positive or pertinent negative responses have been documented in the HPI. ROS Other: All systems not noted in ROS Statement are negative. 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 Abrasions to dorsal aspects right great and 2nd toes, well healing wound at base of the distal aspect of the left foot where great toe has been removed, granulation tissue present without purulence, scar tissue formation, no surround erythema, no swelling EYES: Pupils are equally round, extraocular movements intact without nystagmus, clear conjunctiva, non-icteric sclera HENT: Normocephalic, atraumatic, moist mucus membranes, oropharynx clear without exudates NECK: , Full range of motion, normal appearance, no mid[place] spinal TTP PULMONARY: Clear to auscultation without wheezes, rhonchi, or rales, normal excursion, no accessory muscle use and no stridor CARDIOVASCULAR: Mild tachycardia, regular rhythm, normal S1 and S2. No appreciated murmurs, rubs or gallops. Strong radial pulses with intact distal perfusion. No lower extremity edema GASTROINTESTINAL: Soft, non-tender, non-distended, no palpable masses, no rebound or guarding. No hepatosplenomegaly MUSCULOSKELETAL: Extremities have no gross deformity, no edema, redness, or swelling. NEUROLOGIC:_a/o x 3, GCS 15, normal mentation and speech. Moves all extremities x 4 without motor or sensory deficit PSYCHIATRIC:_normal mood and affect, thought process is clear and linear Limitations: no limitations Course Vital Signs 05/18/24 05/18/24 05/18/24 04:59 05:38 06:04 Temperature 99.2 F Pulse Rate 107 H 102 H 101 H Respiratory 18 18 18 Rate Blood Pressure 130/54 134/73 131/77 O2 Sat by Pulse 96 96 96 Oximetry 05/18/24 09:08 Temperature 98 F Pulse Rate 89 Respiratory 18 Rate Blood Pressure 155/99 O2 Sat by Pulse 98 Oximetry EKG Findings - EKG Comments: EKG Findings:: Sinus tachycardia, rate 110 bpm, QRS duration 174 ms, QT/QTc 386/451 ms, right axis deviation, right bundle branch block, compared to EKG performed on 12/30/2023, no new ST elevations or depressions from prior, no significant changes from prior Medical Decision Making - Medical Decision Making Was pt. sent in by a medical professional or institution (, PA, EDUCATION MANAGER, urgent care, hospital, or fdc...) When possible be specific @ -No Did you speak to anyone other than the patient for history (EMS, parent, family, police, friend...)? What history was obtained from this source @ -No Did you review nursing and triage notes (agree or disagree)? Why? @ -I reviewed and agree with nursing and triage notes Were old charts reviewed (outside hosp., previous admission, EMS record, old EKG, old radiological studies, urgent care reports/EKG's, fdc records)? Report findings @ -Reviewed progress note from December 2023 when patient presented to the hospital for lightheadedness dizziness and had a mechanical fall with LOC.. 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 Differential Diagnosis (chest pain, altered mental status, abdominal pain women, abdominal pain men, vaginal bleeding, weakness, fever, dyspnea, syncope, headache, dizziness, GI bleed, back pain, seizure, CVA, palpatations, mental health, musculoskeletal)? @ -Patient presents for mechanical trip and fall, ASA was given per EMS as they performed a rhythm strip and were concerned for rhythm on EKG, EMS performed rhythm strip because they initially reported that they had been called for syncopal episode however upon further history gathering patient had no episode of syncope, denies any chest pain or shortness of breath. However due to mild tachycardia on arrival and patient's noted mild dyspepsia differential diagnosis remains broad however top considerations include gastritis, GERD, ACS this is not all-inclusive list EKG interpreted by me (3pts min.). @ -As above X-rays interpreted by me (1pt min.). @ -No consolidations or effusions, mild cardiomegaly CT interpreted by me (1pt min.). @ -None done U/S interpreted by me (1pt. min.). @ -None done What testing was considered but not performed or refused? (CT, X-rays, U/S, labs)? Why? @ -None What meds were considered but not given or refused? Why? @ -None Did you discuss the management of the patient with other professionals (professionals i.e. , PA, EDUCATION MANAGER, lab, RT, psych nurse, director of social work, enforcement manager, teacher, training systems officer, case technician)? Give summary @ -No Was smoking cessation discussed for >3mins.? @ -No Was critical care preformed (if so, how long)? @ -No Were there social determinants of health that impacted care today? How? (Homelessness, low income, unemployed, alcoholism, drug addiction, transportat ion, low edu. Level, literacy, decrease access to med. care, senior living, rehab)? @ -No Was there de-escalation of care discussed even if they declined (Discuss DNR or withdrawal of care, Hospice)? @ -No What co-morbidities impacted this encounter? (DM, HTN, Smoking, COPD, CAD, Cancer, CVA, ARF, Chemo, Hep., AIDS, mental health diagnosis, sleep apnea, morbid obesity)? @ -Diabetes Was patient admitted / discharged? Hospital course, mention meds given and route, prescriptions, significant lab abnormalities, going to OR and other pertinent info. @ -Hospital course Discharged Patient is a pleasant 68 gentleman past medical history diabetes, OA presenting for mechanical trip and fall. Pt without complaints with exception of mild dyspepsia on arrival. BP, stable, no hypoxia, mild tachycardia noted. EKG was obtained prior to my assessment, as a rhythm strip was obtained by EMS and they were concerned for STEMI based on how the strip was read by the computer however upon review of this strip, findings were similar to EKG performed here, and showed no significant changes from prior. No STEMI or STEMI equivalents noted. However with dyspepsia and tachycardia, will obtain troponin and CXR, though given lack of chest pain, EKG changes or shortness of breath I do have a low suspicion of ACS. 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 Pepcid ordered for dyspepsia. Labs and imaging reviewed. Grossly within normal limits. Abnormal values not concerning for acute pathology related to presenting complaint. On reassessment tachycardia has resolved. Patient endorses resolution of dyspepsia. HEART score of 3. Will obtain 2nd 3 hour trop and if wnl, plan for discharge. Pt agreeable with POC. Pt signed out to Dr. Tobias pending repeat troponin. Undiagnosed new problem with uncertain prognosis? @ -No Drug Therapy requiring intensive monitoring for toxicity (Heparin, Nitro, Insulin, Cardizem)? @ -No Were any procedures done? @ -No Diagnosis/symptom? @ -Mechanical trip and fall Acute, or Chronic, or Acute on Chronic? @ -Acute Uncomplicated (without systemic symptoms) or Complicated (systemic symptoms)? @ uncomplicated Side effects of treatment? @ -No Exacerbation, Progression, or Severe Exacerbation? @ -No Poses a threat to life or bodily function? How? (Chest pain, [place], MT, pneumonia, PE, COPD, DKA, ARF, appy, cholecystitis, CVA, Diverticulitis, Homicidal, Suicidal, threat to staff... and all critical care pts) @ -unlikely - Lab Data Result diagrams: 05/18/24 05:04 05/18/24 05:04 Lab Results 05/18/24 05/18/24 05/18/24 Range/Units 05:04 05:04 05:04 WBC 11.9 H (3.8-10.6) k/uL RBC 5.12 (4.30-5.90) m/uL Hgb 15.3 (13.0-17.5) gm/dL Hct 46.8 (39.0-53.0) % MCV 91.5 (80.0-100.0) fL MCH 29.8 (25.0-35.0) pg MCHC 32.6 (31.0-37.0) g/dL RDW 13.7 (11.5-15.5) % Plt Count 268 (150-450) k/uL MPV 8.5 Neutrophils % 75 % Lymphocytes % 16 % Monocytes % 6 % Eosinophils % 2 % Basophils % 0 % Neutrophils # 8.9 H (1.3-7.7) k/uL Lymphocytes # 1.9 (1.0-4.8) k/uL Monocytes # 0.7 (0-1.0) k/uL Eosinophils # 0.2 (0-0.7) k/uL Basophils # 0.0 (0-0.2) k/uL PT 11.1 (10.0-12.5) sec INR 1.0 (<1.2) APTT 24.6 (22.0-30.0) sec Sodium 134 L (137-145) mmol/L Potassium 4.1 (3.5-5.1) mmol/L Chloride 109 H (98-107) mmol/L Carbon Dioxide 23 (22-30) mmol/L Anion Gap 2 mmol/L BUN 16 (9-20) mg/dL Creatinine 1.11 (0.66-1.25) mg/dL Est GFR (CKD-EPI)AfAm 79 (>60 ml/min/1.73 sqM) Est GFR (CKD-EPI)NonAf 68 (>60 ml/min/1.73 sqM) Glucose 111 H (74-99) mg/dL Calcium 8.9 (8.4-10.2) mg/dL Total Bilirubin 0.9 (0.2-1.3) mg/dL AST 22 (17-59) U/L ALT 15 (4-49) U/L Alkaline Phosphatase 98 (38-126) U/L Troponin I (0.000-0.034) ng/mL NT-Pro-B Natriuret Pep 846 pg/mL Total Protein 5.9 L (6.3-8.2) g/dL Albumin 3.5 (3.5-5.0) g/dL 05/18/24 05/18/24 Range/Units 05:04 08:06 WBC (3.8-10.6) k/uL RBC (4.30-5.90) m/uL Hgb (13.0-17.5) gm/dL Hct (39.0-53.0) % MCV (80.0-100.0) fL MCH (25.0-35.0) pg MCHC (31.0-37.0) g/dL RDW (11.5-15.5) % Plt Count (150-450) k/uL MPV Neutrophils % % Lymphocytes % % Monocytes % % Eosinophils % % Basophils % % Neutrophils # (1.3-7.7) k/uL Lymphocytes # (1.0-4.8) k/uL Monocytes # (0-1.0) k/uL Eosinophils # (0-0.7) k/uL Basophils # (0-0.2) k/uL PT (10.0-12.5) sec INR (<1.2) APTT (22.0-30.0) sec Sodium (137-145) mmol/L Potassium (3.5-5.1) mmol/L Chloride (98-107) mmol/L Carbon Dioxide (22-30) mmol/L Anion Gap mmol/L BUN (9-20) mg/dL Creatinine (0.66-1.25) mg/dL Est GFR (CKD-EPI)AfAm (>60 ml/min/1.73 sqM) Est GFR (CKD-EPI)NonAf (>60 ml/min/1.73 sqM) Glucose (74-99) mg/dL Calcium (8.4-10.2) mg/dL Total Bilirubin (0.2-1.3) mg/dL AST (17-59) U/L ALT (4-49) U/L Alkaline Phosphatase (38-126) U/L Troponin I <0.012 <0.012 (0.000-0.034) ng/mL NT-Pro-B Natriuret Pep pg/mL Total Protein (6.3-8.2) g/dL Albumin (3.5-5.0) g/dL Disposition Clinical Impression: Fall Disposition: HOME SELF-CARE Condition: Good Additional Instructions: Every disease is a spectrum and a small chance still exists that a serious condition could develop, for this reason, please monitor yourself closely for new, changing or worsening symptoms, additional episodes of falling, episodes of passing out, any chest pain, shortness of breath, lightheadedness or dizziness, increasing discharge or redness or pain around the location of your recent toe removal, fever, inability to tolerate/keep down fluids or your medications, inability to follow up with outpatient providers as instructed and should you experience these symptoms or should you have any further concerns for your wellb eing please return to the ED or call 911 immediately. PLEASE call your primary care physician as soon as possible to arrange / discuss plan for followup appointment. Appointment in the next 1-3 days is strongly encouraged if possible. PLEASE let us know here before you leave if there is anything further we can do to be of any assistance. Take care and feel Better! Is patient prescribed a controlled substance at d/c from ED?: No Referrals: Padma Gomez MD [Primary Care Provider] - 1-2 days
[2024-05-18 05:39] LABS: Basophils % (A) 0 %; Eosinophils # (A) 0.2 k/uL (0-0.7); Eosinophils % (A) 2 %; HCT 46.8 % (39.0-53.0); HGB 15.3 gm/dL (13.0-17.5); Lymphocytes # (A) 1.9 k/uL (1.0-4.8); Lymphocytes % (A) 16 %; MCH 29.8 pg (25.0-35.0); MCHC 32.6 g/dL (31.0-37.0); MCV 91.5 fL (80.0-100.0); Mean Platelet Volume 8.5; Monocytes # (A) 0.7 k/uL (0-1.0); Monocytes % (A) 6 %; Neutrophils # (A) 8.9 k/uL (1.3-7.7); Neutrophils % (A) 75 %; Platelet Count 268 k/uL (150-450); RBC 5.12 m/uL (4.30-5.90); RDW 13.7 % (11.5-15.5); WBC 11.9 k/uL (3.8-10.6)
--- NOTE | 2024-05-18 05:42 | XR ---
EXAMINATION TYPE: XR chest 2V DATE OF EXAM: 05/18/2024 COMPARISON: Chest x-ray December 30, 2023 HISTORY: Tachycardia. TECHNIQUE: Frontal and lateral views of the chest are obtained. FINDINGS: Low lung volumes redemonstrated. There is no focal air space opacity, pleural effusion, or pneumothorax seen. Mild cardiomegaly again seen. The osseous structures are intact. IMPRESSION: Mild cardiomegaly without acute pulmonary process. [facility], , 05/18/2024 5:40 AM
[2024-05-18 05:54] LABS: Partial Thromboplastin Time 24.6 sec (22.0-30.0); Prothrombin Time 11.1 sec (10.0-12.5)
[2024-05-18 06:05] LABS: ALT 15 U/L (4-49); AST 22 U/L (17-59); African American GFR (CKD) 79 (>60 ml/min/1.73 sqM); Albumin 3.5 g/dL (3.5-5.0); Alkaline Phosphatase 98 U/L (38-126); Anion Gap 2 mmol/L; Blood Urea Nitrogen 16 mg/dL (9-20); Calcium 8.9 mg/dL (8.4-10.2); Carbon Dioxide 23 mmol/L (22-30); Chloride 109 mmol/L (98-107); Glucose 111 mg/dL (74-99); Non-African American GFR(CKD) 68 (>60 ml/min/1.73 sqM); Potassium 4.1 mmol/L (3.5-5.1); Sodium 134 mmol/L (137-145); Total Bilirubin 0.9 mg/dL (0.2-1.3); Total Protein 5.9 g/dL (6.3-8.2)
[2024-05-18 06:14] LABS: NT-Pro-B-Type Natriuretic Pept 846 pg/mL
[2024-05-18 09:09] VITALS: BP 155/99; PULSE 89; TEMP 98
== END 2024-05-18 09:09 | disposition home or self-care (01) ==
LOC: EC 04:58
CPT/HCPCS: 36415; 71046; 80053; 83880; 84484; 85025; 85610; 85730; 93005; 96374; 99284

== ENCOUNTER 2024-05-21 08:28 | Inpatient (IN) | payer OTHER ==
--- NOTE | 2024-05-21 09:28 | ED ---
General Adult HPI - General Chief complaint: Fall Stated complaint: Fall Time Seen by Provider: 05/21/24 08:35 Source: EMS Mode of arrival: EMS Limitations: altered mental status - History of Present Illness Initial comments: 68-year-old male with past medical history of these, recent amputation of lower extremities who presents emergency department after a fall. Son is at bedside and helps read the history. States that the patient has had multiple falls over the weekend. He was seen in our emergency department after one of the falls and was discharged home. Son states he cannot keep him on his feet. This is very common for the patient to fall however this is increasingly worse. Patient does have a history of orthostatic hypotension. Today the patient tried to take a shower and fell hitting his head against the toilet. He does have a notable abrasion. No altered mental status. Patient does have nausea. He denies any neck pain. He does arrive in a c-collar. He denies any chest pain or difficulty breathing. No back pain. Son feels as if he needs rehab. On review of the patient's chart he did note chest pain when he was in the emergency department. He denies any active pain. No other alleviating, precipitating or modifying factors - Related Data Home Medications Medication Instructions Recorded Confirmed ALPRAZolam [Xanax] 2 mg PO Q12H 02/24/14 05/21/24 Hydrocodone/Acetaminophen 1 tab PO BID 04/13/15 05/21/24 [Hydrocodone/Acetaminophen 7.5-325] Insulin Aspart [NovoLOG Flexpen] 1 - 30 units SQ AC-TID PRN 12/31/23 05/21/24 Albuterol Inhaler [Ventolin Hfa 2 puff INHALATION RT-QID PRN 05/21/24 05/21/24 Inhaler] Atorvastatin [Lipitor] 20 mg PO DAILY 05/21/24 05/21/24 Insulin Glargine,Hum.rec.anlog 30 units SQ BID PRN 05/21/24 05/21/24 [Lantus Solostar Pen] Semaglutide [Ozempic] 0.5 mg SQ MO 05/21/24 05/21/24 Tobramycin 0.3% Ophth Soln [Tobrex 2 drops BOTH EYES Q4H 05/21/24 05/21/24 0.3% Ophth Soln] Previous Rx's Medication Instructions Recorded lisinopriL [Zestril] 2.5 mg PO DAILY #30 tab 01/03/24 Allergies Allergy/AdvReac Type Severity Reaction Status Date / Time No Known Allergies Allergy Verified 05/21/24 10:00 Review of Systems ROS Statement: Those systems with pertinent positive or pertinent negative responses have been documented in the HPI. ROS Other: All systems not noted in ROS Statement are negative. 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, NEEDLE ASPIRATION LEFT EYE Q 3 MONTHS, PAIN CLINIC Past Anesthesia/Blood Transfusion Reactions: No Reported Reaction Past Psychological History: Anxiety Smoking Status: Current every day smoker Past Alcohol Use History: None Reported Past Drug Use History: None Reported - Past Family History Mother Family Medical History: Cancer Additional Family Medical History / Comment(s): BREAST Sister(s) Family Medical History: Cancer General Exam Limitations: no limitations General appearance: alert, in no apparent distress Head exam: Present: normocephalic, other (Occipital skin abrasion) Eye exam: Present: normal appearance, PERRL, EOMI. Absent: scleral icterus, conjunctival injection, periorbital swelling ENT exam: Present: normal exam, mucous membranes moist Neck exam: Present: normal inspection. Absent: tenderness, meningismus, lymphadenopathy Respiratory exam: Present: normal lung sounds bilaterally. Absent: respiratory distress, wheezes, rales, rhonchi, stridor Cardiovascular Exam: Present: regular rate, normal rhythm, normal heart sounds. Absent: systolic murmur, diastolic murmur, rubs, gallop, clicks GI/Abdominal exam: Present: soft, normal bowel sounds. Absent: distended, tenderness, guarding, rebound, rigid Extremities exam: Present: full ROM, normal capillary refill, other (Distal a mputations left foot. Patient has new areas of ulceration starting on the dorsal aspect of the right toes). Absent: tenderness, pedal edema, joint swelling, calf tenderness Back exam: Present: normal inspection Neurological exam: Present: alert, CN II-XII intact Psychiatric exam: Present: normal affect, normal mood Skin exam: Present: warm, dry, intact, normal color. Absent: rash Course Vital Signs 05/21/24 05/21/24 05/21/24 08:34 10:42 18:00 Temperature 98.6 F 98 F Pulse Rate 102 H 100 Pulse Rate [ 110 H Sitting] Pulse Rate [ 110 H Standing] Pulse Rate [ 99 Supine] Respiratory 20 18 Rate Blood Pressure 147/84 Blood Pressure 151/108 [Sitting] Blood Pressure 130/70 [Standing] Blood Pressure 170/104 [Supine] O2 Sat by Pulse 96 98 Oximetry Medical Decision Making - Medical Decision Making Was pt. sent in by a medical professional or institution (, PA, BIAS CUTTER, urgent care, hospital, or [facility]...) When possible be specific @ -No Did you speak to anyone other than the patient for history (EMS, parent, family, police, friend...)? What history was obtained from this source @ -EMS and patient's son Did you review nursing and triage notes (agree or disagree)? Why? @ -I reviewed and agree with nursing and triage notes Were old charts reviewed (outside hosp., previous admission, EMS record, old EKG, old radiological studies, urgent care reports/EKG's, [facility] records)? Report findings @ -I reviewed the chart 1 patient was hospitalized on the Differential Diagnosis (chest pain, altered mental status, abdominal pain women, abdominal pain men, vaginal bleeding, weakness, fever, dyspnea, syncope, headache, dizziness, GI bleed, back pain, seizure, CVA, palpatations, mental health, musculoskeletal)? @ -Differential Weakness: Hypoglycemia, shock, sepsis, hyponatremia, anemia, infection, MA, ETOH, adverse medicine reaction, overdose, stroke, this is not meant to be an all-inclusive list. EKG interpreted by me (3pts min.). @ -Yes and demonstrates sinus tachycardia with a rate of 100. OR interval 169. QRS 173. QTc of 477. Right bundle branch block. No acute ST segment eleva tions X-rays interpreted by me (1pt min.). @ -Yes with no reportable signs of osteomyelitis CT interpreted by me (1pt min.). @ -Yes and demonstrates no acute intracranial process U/S interpreted by me (1pt. min.). @ -None done What testing was considered but not performed or refused? (CT, X-rays, U/S, labs)? Why? @ -None What meds were considered but not given or refused? Why? @ -None Did you discuss the management of the patient with other professionals (professionals i.e. , PA, BIAS CUTTER, lab, RT, psych nurse, mental health social worker, label stamper, teacher, fare enforcement officer, case fitter)? Give summary @ -Spoke with Dr. Dean in regards to his elevated troponin. Also spoke with Dr. Aguilar for admission Was smoking cessation discussed for >3mins.? @ -No Was critical care preformed (if so, how long)? @ -Yes, 35 minutes for NSTEMI Were there social determinants of health that impacted care today? How? (Homelessness, low income, unemployed, alcoholism, drug addiction, transportation, low edu. Level, literacy, decrease access to med. care, nursing home, rehab)? @ -No Was there de-escalation of care discussed even if they declined (Discuss DNR or withdrawal of care, Hospice)? DNR status @ -No What co-morbidities impacted this encounter? (DM, HTN, Smoking, COPD, CAD, Cancer, CVA, ARF, Chemo, Hep., AIDS, mental health diagnosis, sleep apnea, morbid obesity)? @ -Diabetes, recurrent osteo Was patient admitted / discharged? Hospital course, mention meds given and route, prescriptions, significant lab abnormalities, going to OR and other pertinent info. @ -Upon arrival patient seen and evaluated in room 29. Thorough history and physical exam was performed. Patient sent over for CT of his brain and cervical spine which demonstrates no acute intracranial abnormality. Laboratory studies do demonstrate an elevated troponin. Patient was seen in the emergency department on the and was complaining of chest pain. Troponins were negative at that time. They are elevated today. Because of this I did heparinize the patient after the CT was read as negative. I called and spoke with Dr. Dean. I spoke with Dr. Aguilar for the admission. Undiagnosed new problem with uncertain prognosis? @ -No Drug Therapy requiring intensive monitoring for toxicity (Heparin, Nitro, Insulin, Cardizem)? @ -Heparin Were any procedures done? @ -No Diagnosis/symptom? @ -Multiple falls, blunt head trauma, occipital abrasion, NSTEMI Acute, or Chronic, or Acute on Chronic? @ -Acute Uncomplicated (without systemic symptoms) or Complicated (systemic symptoms)? @ -Complicated Side effects of treatment? @ -No Exacerbation, Progression, or Severe Exacerbation? @ -No Poses a threat to life or bodily function? How? (Chest pain, USA, MA, pneumonia, PE, COPD, DKA, ARF, appy, cholecystitis, CVA, Diverticulitis, Homicidal, Suicidal, threat to staff... and all critical care pts) @ -Yes as patient does have elevated troponin - Lab Data Result diagrams: 05/21/24 09:05/21/24 09:33 Lab Results 05/21/24 05/21/24 05/21/24 Range/Units :::33 WBC 13.8 H (3.8-10.6) k/uL RBC 5.13 (4.30-5.90) m/uL Hgb 15.5 (13.0-17.5) gm/dL Hct 46.5 (39.0-53.0) % MCV 90.7 (80.0-100.0) fL MCH 30.2 (25.0-35.0) pg MCHC 33.3 (31.0-37.0) g/dL RDW 13.5 (11.5-15.5) % Plt Count 274 (150-450) k/uL MPV 8.0 Neutrophils % 86 % Lymphocytes % 6 % Monocytes % 6 % Eosinophils % 1 % Basophils % 0 % Neutrophils # 11.9 H (1.3-7.7) k/uL Lymphocytes # 0.8 L (1.0-4.8) k/uL Monocytes # 0.9 (0-1.0) k/uL Eosinophils # 0.1 (0-0.7) k/uL Basophils # 0.0 (0-0.2) k/uL Sodium 137 (137-145) mmol/L Potassium 4.2 (3.5-5.1) mmol/L Chloride 101 (98-107) mmol/L Carbon Dioxide 24 (22-30) mmol/L Anion Gap 12 mmol/L BUN 22 H (9-20) mg/dL Creatinine 1.03 (0.66-1.25) mg/dL Est GFR (CKD-EPI)AfAm 86 (>60 ml/min/1.73 sqM) Est GFR (CKD-EPI)NonAf 75 (>60 ml/min/1.73 sqM) Glucose 186 H (74-99) mg/dL POC Glucose (mg/dL) (70-110) mg/dL POC Glu Table Tender Sludge ID Calcium 8.7 (8.4-10.2) mg/dL Total Bilirubin 0.7 (0.2-1.3) mg/dL AST 26 (17-59) U/L ALT 19 (4-49) U/L Alkaline Phosphatase 114 (38-126) U/L Troponin I 0.143 H* (0.000-0.034) ng/mL Total Protein 6.0 L (6.3-8.2) g/dL Albumin 3.4 L (3.5-5.0) g/dL 05/21/24 Range/Units 09:49 WBC (3.8-10.6) k/uL RBC (4.30-5.90) m/uL Hgb (13.0-17.5) gm/dL Hct (39.0-53.0) % MCV (80.0-100.0) fL MCH (25.0-35.0) pg MCHC (31.0-37.0) g/dL RDW (11.5-15.5) % Plt Count (150-450) k/uL MPV Neutrophils % % Lymphocytes % % Monocytes % % Eosinophils % % Basophils % % Neutrophils # (1.3-7.7) k/uL Lymphocytes # (1.0-4.8) k/uL Monocytes # (0-1.0) k/uL Eosinophils # (0-0.7) k/uL Basophils # (0-0.2) k/uL Sodium (137-145) mmol/L Potassium (3.5-5.1) mmol/L Chloride (98-107) mmol/L Carbon Dioxide (22-30) mmol/L Anion Gap mmol/L BUN (9-20) mg/dL Creatinine (0.66-1.25) mg/dL Est GFR (CKD-EPI)AfAm (>60 ml/min/1.73 sqM) Est GFR (CKD-EPI)NonAf (>60 ml/min/1.73 sqM) Glucose (74-99) mg/dL POC Glucose (mg/dL) 162 H (70-110) mg/dL POC Glu Table Tender Sludge ID Yehuda Liriano Calcium (8.4-10.2) mg/dL Total Bilirubin (0.2-1.3) mg/dL AST (17-59) U/L ALT (4-49) U/L Alkaline Phosphatase (38-126) U/L Troponin I (0.000-0.034) ng/mL Total Protein (6.3-8.2) g/dL Albumin (3.5-5.0) g/dL Disposition Clinical Impression: Fall, Head injury, Nausea, NSTEMI (non-ST elevated myocardial infarction) Disposition: ADMITTED IP TO THIS [facility] Condition: Serious Is patient prescribed a controlled substance at d/c from ED?: No Time of Disposition: 12:04 Decision to Admit Reason: Admit from EC Decision Date: 05/21/24 Decision Time: 12:04
[2024-05-21 09:51] LABS: Glucose,Whole Blood 162 mg/dL (70-110)
[2024-05-21 09:52] LABS: Basophils % (A) 0 %; Eosinophils # (A) 0.1 k/uL (0-0.7); Eosinophils % (A) 1 %; HCT 46.5 % (39.0-53.0); HGB 15.5 gm/dL (13.0-17.5); Lymphocytes # (A) 0.8 k/uL (1.0-4.8); Lymphocytes % (A) 6 %; MCH 30.2 pg (25.0-35.0); MCHC 33.3 g/dL (31.0-37.0); MCV 90.7 fL (80.0-100.0); Monocytes # (A) 0.9 k/uL (0-1.0); Monocytes % (A) 6 %; Neutrophils # (A) 11.9 k/uL (1.3-7.7); Neutrophils % (A) 86 %; Platelet Count 274 k/uL (150-450); RBC 5.13 m/uL (4.30-5.90); RDW 13.5 % (11.5-15.5); WBC 13.8 k/uL (3.8-10.6)
[2024-05-21] MEDS: ONDANSETRON 4 MG/2 ML VIAL IVP STA (09:52)
[2024-05-21 10:02] LABS: African American GFR (CKD) 86 (>60 ml/min/1.73 sqM); Anion Gap 12 mmol/L; Blood Urea Nitrogen 22 mg/dL (9-20); Carbon Dioxide 24 mmol/L (22-30); Chloride 101 mmol/L (98-107); Glucose 186 mg/dL (74-99); Non-African American GFR(CKD) 75 (>60 ml/min/1.73 sqM); Potassium 4.2 mmol/L (3.5-5.1); Sodium 137 mmol/L (137-145)
[2024-05-21 10:03] LABS: ALT 19 U/L (4-49); AST 26 U/L (17-59); Albumin 3.4 g/dL (3.5-5.0); Alkaline Phosphatase 114 U/L (38-126); Calcium 8.7 mg/dL (8.4-10.2); Total Bilirubin 0.7 mg/dL (0.2-1.3)
--- NOTE | 2024-05-21 10:36 | CT ---
EXAMINATION TYPE: CT brain cspine wo con CT DLP: 1558.4 mGycm, Automated exposure control for dose reduction was used. DATE OF EXAM: 05/21/2024 10:25 AM COMPARISON: CT brain 12/30/2023 CLINICAL INDICATION:Male, 68 years old with history of fall, head injury; Fall, head injury TECHNIQUE: Brain: Multiple axial CT images of the brain were obtained without IV contrast. Cspine: Axial CT images from the skull base to the inferior aspect of T2 we obtained without intraven ous contrast. Coronal and sagittal reformatted images were also reviewed. FINDINGS: Brain: Extra-axial spaces: No abnormal extra-axial fluid collections. Ventricular system: Within normal limits Cerebral parenchyma: No acute intraparenchymal hemorrhage or mass effect. The bull-white junction is well differentiated. Scattered hypoattenuating areas are seen within the white matter. Cerebellum: Unremarkable. Mass effect: No evidence of midline shift. Intracranial vasculature: Atherosclerotic calcifications of the intracranial vessels. Soft tissues: Normal. Calvarium/osseous structures: No depressed skull fracture. Paranasal sinuses and mastoid air cells: Mild mucosal thickening of the left maxillary sinus and post erior right ethmoid sinus. Mastoid air cells are clear. Visualized orbits: Orbital contents are intact. Cervical spine: Fracture: None. Osseous structures: Multilevel degenerative disc disease changes with endplate spurring and disc oste ophyte complex's. Vertebral alignment: Within normal limits. Spinal canal/Neural Foramina: Disc osteophyte complexes at C6-C7 with at least mild spinal canal sten osis. Calcified central disc protrusion at C2-C3 with at least mild central canal stenosis. Calcified central disc protrusion with cranial extrusion of approximately 7 mm with at least mild central mariano l stenosis. Facet joint uncovertebral joint arthropathy scattered throughout the cervical spine with varying degrees of neural foraminal stenosis. Neck soft tissues: Prevertebral soft tissues are within normal limits. Other: The airway is patent. The lung apices are clear. IMPRESSION: 1. No acute intracranial process. 2. Nonspecific white matter changes, likely secondary to chronic small vessel ischemic disease. 3. No evidence of cervical spine fracture. 4. Mild to moderate multilevel degenerative disc disease with disc herniations as described above. [facility], , 05/21/2024 10:34 AM
--- NOTE | 2024-05-21 11:34 | XR ---
EXAMINATION TYPE: XR foot limited bilateral DATE OF EXAM: 05/21/2024 10:08 AM INDICATION: Patient age:Male; 68 years old; Reason for study: foot wounds; PHH. COMPARISON: None TECHNIQUE: Both feet examined in the AP, oblique, and lateral projections. FINDINGS: Left foot: No acute fracture or dislocation. No osseous erosions. No soft tissue swelling. No radiopa que foreign body. Joints appear preserved. Large plantar calcaneal spur with small posterior calcanea l spur. Vascular sclerosis. Right foot: Postoperative amputation changes of the distal first and second digits at the MTP joints. No osseous erosions. Diffuse soft tissue swelling of the right foot and ankle. No acute fracture or dislocation. Moderate plantar calcaneal spur with small posterior calcaneal spur. Vascular sclerosis. IMPRESSION: 1. No evidence of acute fracture or dislocation. 2. Postoperative amputation changes the distal first and second digits at the MTP joints. Diffuse so ft tissue swelling of the foot most pronounced at the patient's surgical site. No osseous erosions to suggest osteomyelitis. 3. Bilateral plantar and posterior calcaneal spurs. [facility], , 05/21/2024 11:32 AM
[2024-05-21] MEDS ORDERED: NALOXONE 0.4 MG/ML 1 ML VIAL IV PRN (12:04)
[2024-05-21] MEDS ORDERED: ACETAMINOPHEN TAB 325 MG TAB PO PRN (12:04)
[2024-05-21] MEDS ORDERED: ONDANSETRON 4 MG/2 ML VIAL IVP PRN (12:04)
[2024-05-21] MEDS: diphenhydrAMINE 50 MG/ML 1 ML VIAL IVP STA (12:29)
[2024-05-21] MEDS: HEPARIN SOD,PORK IN 0.45% NACL 25,000 UNIT in 0.45% NACL 1 250ML.BAG IV SCH (12:30)
[2024-05-21] MEDS: METOCLOPRAMIDE 5 MG/ML 2 ML VIAL IVP STA (12:30)
--- NOTE | 2024-05-21 14:06 | P.CRDCN ---
History of Present Illness Consult date: 05/21/24 History of present illness: History of Present Illness: The patient is a 68-year-old male with known history of peripheral vascular disease, chronic tobacco use, diabetes, hypertension and hyperlipidemia who has underwent amputation of toes by Dr. Grady recently because of infection and gangrene who presented with falls. The patient is somewhat vague with his histo ry but he denies any chest discomfort or change in his breathing. He is not active physically. In the emergency room he had mild elevation of the troponin. He denies any cardiac history. In December he had an echocardiogram that was technically difficult and revealed an ejection fraction of 45 to 50%. He is in sinus mechanism. He has no documented history of myocardial infarction. He has not been followed by cardiology. He has no PND or orthopnea. His greatest factor is medical for the hypertension, hyperlipidemia, diabetes and chronic tobacco use. He has been seen in the emergency room recently with recurrent falls that has been chronic. There is no syncopal episode. Medications: Ozempic, insulin, Zestril 2.5 mg daily, Lipitor 20 mg daily Review of Systems: Respiratory: Dyspnea on exertion, chronic tobacco use GI: No nausea or vomiting . No history of peptic ulcer disease. No recent GI bleed. : No hematuria or dysuria. Nervous System: No stroke or seizure. Physical Examination: 68-year-old male, alert, appears to be older than stated age,Blood pressure 150/100, Heart rate 105 Head: Normocephalic. Eyes: Sclerae nonicteric. Neck: Good carotid upstroke, no bruit, no jugular venous distention. Lungs: Clear to auscultation. Heart: Regular rate and rhythm, S1-S2, no S3, no rub. Systolic ejection murmur. Abdomen: Soft nontender, positive bowel sounds no organomegaly. Extremities: [No edema, dressing on the left foot with ulceration on the right great toe Labs: WBC 13.8, hemoglobin 15.5, BUN 22, creatinine 1.03. Troponin 0.143. Total protein 6.0 with an albumin is 3.4. EKG: Sinus mechanism with right bundle branch block and left anterior fascicular block, noted in the past Impression: 1. Recurrent falls, etiology unclear 2. Mild troponin most likely present type II myocardial infarction related to the infection in the toe 3. Status post recent amputation of left toe with diabetic foot and nonhealing ulcer 4. History of diabetes 5. History of hyperlipidemia 6. History of smoking 7. Chronic tobacco use Plan: 1. Add beta-shirin, aspirin and increase the dose of Zestril 2. Obtain a limited echocardiogram for further evaluation of the low ventricle systolic function 3. Follow renal function and troponin 4. Vascular surgery consultation in regard to his prior amputation and may require infectious disease consultation 5. Depending on his progress further recommendations will be made, thank you for this consult we will follow with you. 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, NEEDLE ASPIRATION LEFT EYE Q 3 MONTHS, PAIN CLINIC Past Anesthesia/Blood Transfusion Reactions: No Reported Reaction Past Psychological History: Anxiety Smoking Status: Current every day smoker Past Alcohol Use History: None Reported Past Drug Use History: None Reported - Past Family History Mother Family Medical History: Cancer Additional Family Medical History / Comment(s): BREAST Sister(s) Family Medical History: Cancer Medications and Allergies Home Medications Medication Instructions Recorded Confirmed Type ALPRAZolam [Xanax] 2 mg PO Q12H 02/24/14 05/21/24 History Hydrocodone/Acetaminophen 1 tab PO BID 04/13/15 05/21/24 History [Hydrocodone/Acetaminophen 7.5-325] Insulin Aspart [NovoLOG Flexpen] 1 - 30 units SQ AC-TID PRN 12/31/23 05/21/24 H istory lisinopriL [Zestril] 2.5 mg PO DAILY #30 tab 01/03/24 05/21/24 Rx Albuterol Inhaler [Ventolin Hfa 2 puff INHALATION RT-QID PRN 05/21/24 05/21/24 History Inhaler] Atorvastatin [Lipitor] 20 mg PO DAILY 05/21/24 05/21/24 History Insulin Glargine,Hum.rec.anlog 30 units SQ BID PRN 05/21/24 05/21/24 History [Lantus Solostar Pen] Semaglutide [Ozempic] 0.5 mg SQ MO 05/21/24 05/21/24 History Tobramycin 0.3% Ophth Soln [Tobrex 2 drops BOTH EYES Q4H 05/21/24 05/21/24 History 0.3% Ophth Soln] Allergies Allergy/AdvReac Type Severity Reaction Status Date / Time No Known Allergies Allergy Verified 05/21/24 10:00 Physical Exam Vitals: Vital Signs Temp Pulse Pulse Pulse Pulse Resp BP 05/21/24 10:42 110 H 110 H 99 05/21/24 08:34 98.6 F 102 H 20 147/84 BP BP BP Pulse Ox 05/21/24 10:42 151/108 130/70 170/104 05/21/24 08:34 96 Intake and Output 05/20/24 05/21/24 05/21/24 22:59 06:59 14:59 Other: Weight 113.398 kg Results 05/21/24 09:33 05/21/24 09:33 Cardiac Enzymes 05/21/24 05/21/24 Range/Units 09:33 09:33 AST 26 (17-59) U/L Troponin I 0.143 H* (0.000-0.034) ng/mL CBC 05/21/24 Range/Units 09:33 WBC 13.8 H (3.8-10.6) k/uL RBC 5.13 (4.30-5.90) m/uL Hgb 15.5 (13.0-17.5) gm/dL Hct 46.5 (39.0-53.0) % Plt Count 274 (150-450) k/uL Comprehensive Metabolic Panel 05/21/24 Range/Units 09:33 Sodium 137 (137-145) mmol/L Potassium 4.2 (3.5-5.1) mmol/L Chloride 101 (98-107) mmol/L Carbon Dioxide 24 (22-30) mmol/L BUN 22 H (9-20) mg/dL Creatinine 1.03 (0.66-1.25) mg/dL Glucose 186 H (74-99) mg/dL Calcium 8.7 (8.4-10.2) mg/dL AST 26 (17-59) U/L ALT 19 (4-49) U/L Alkaline Phosphatase 114 (38-126) U/L Total Protein 6.0 L (6.3-8.2) g/dL Albumin 3.4 L (3.5-5.0) g/dL Current Medications Generic Name Dose Route Start Last Admin Trade Name Freq PRN Reason Stop Dose Admin Acetaminophen 650 mg 05/21/24 12:04 Acetaminophen Tab 325 Mg Tab PO Q6HR PRN Mild Pain or Fever > 100.5 Heparin Sodium (Porcine) 0 unit 05/21/24 12:06 Heparin Sodium 1,000 Un/Ml (10ml Vl) IV PER PROTOCOL PRN Low PTT Protocol Heparin Sodium/Sodium Chloride 250 mls @ 10.002 mls/hr 05/21/24 12:15 05/21/24 12:30 25,000 unit/ Sodium Chloride IV 8.82 units/kg/hr .Q24H CHNIA 10.002 mls/hr Administration Protocol 8.82 UNITS/KG/HR Naloxone HCl 0.2 mg 05/21/24 12:04 Naloxone 0.4 Mg/Ml 1 Ml Vial IV Q2M PRN Opioid Reversal Ondansetron HCl 4 mg 05/21/24 12:04 Ondansetron 4 Mg/2 Ml Vial IVP Q8HR PRN Nausea And Vomiting Intake and Output 05/20/24 05/21/24 05/21/24 22:59 06:59 14:59 Other: Weight 113.398 kg Patient Weight 05/22/24 06:59 Weight 113.398 kg 05/21/24 09:33 05/21/24 09:33
[2024-05-21] MEDS: ATORVASTATIN 40 MG TAB PO SCH (14:40)
[2024-05-21] MEDS: ASPIRIN 81 MG PO SCH (14:40)
[2024-05-21] MEDS: METOPROLOL TARTRATE 25 MG TAB PO SCH (14:41)
[2024-05-21] MEDS: lisinopriL 5 MG TAB PO SCH (14:41)
[2024-05-21] MEDS ORDERED: DEXTROSE 50% SYRINGE 50 ML IVP PRN ×2 (15:50)
[2024-05-21] MEDS ORDERED: VANCOMYCIN IV PER PHARMACY 1 EACH MISC MISCELLANE PRN (16:12)
--- NOTE | 2024-05-21 16:42 | XR ---
EXAMINATION TYPE: XR foot complete LT DATE OF EXAM: 05/21/2024 COMPARISON: None HISTORY: Multiple falls pain TECHNIQUE: 3 view left foot FINDINGS: Soft tissue swelling is present. Some spurring is at the distal dorsal metatarsal. Plantar and Achilles tendon calcaneal heel spurs are present. There is amputation of the first and second digits. Soft tissue changes are anterior and medial. Some cortical erosion may be at the distal lateral first metatarsal. Correlate for osteomyelitis. There appears to be old fracture proximal phalanx third digit with incomplete union. IMPRESSION: 1. Cortical erosion medial distal first metatarsal. Correlate for osteomyelitis. 2. Postsurgical changes with amputation of the first second digits. 3. There may be incomplete union of an old proximal phalanx third digit fracture. [facility], , 05/21/2024 4:40 PM
--- NOTE | 2024-05-21 17:25 | P.HPIM ---
History of Present Illness H&P Date: 05/21/24 History of present illness; Patient is a 68 year old male with HTN, Hyperlipidemia, DM2, Left first and second digit toe amputation who presents with his son/caregiver who gave the history. The son states he fell and hit his head in the shower prompting him to call EMS. The son states he has been experiencing "a number of falls" since 05/17/24, and he was brought in via EMS on 05/18/24 due to falling and urinary incontinence, and discharged on 05/18/24. The son states he had to "carry him around" after discharge on 05/18/24, as he was unable to walk without falling. The patient states he has only fallen "twice in the past week", and believes his balance issues are due to his amputations. He states he has amputation bandages replaced every 2 days since procedure completed by Dr. Grady. He states his foot is wrapped with bag and bandages to keep it dry while he showers, and is having no current pain from the site. The patient states he is having some nausea and vomiting, but denies loss of consciousness, diarrhea, constipation, fever, urinary changes, headache, chest pain, shortness of breath, or appetite changes. He has no other complaints at this time. -Initial lab work done in the ER showed WBC 13.8, hemoglobin 15.5, platelet 274, sodium 137, potassium 4.2, chloride 101, bicarb 24, BUN 22, creatinine 1.03, glucose 186, troponin 0.143, and repeated 0.99. -EKG done in the ER showed heart rate of 100 , no ST segment elevation or depression seen, no T-wave inversions seen, possible RBBB noted. -CT head done showed no acute intracranial process -Foot x-ray shows cortical erosions medial distal left first metatarsal, possible osteomyelitis Patient admitted to internal medicine service REVIEW OF SYSTEMS: CONSTITUTIONAL: No fever, no malaise, no fatigue. HEENT: No recent visual problems or hearing problems. Denied any sore throat. CARDIOVASCULAR: No chest pain, orthopnea, PND, no palpitations, no syncope. PULMONARY: No shortness of breath, no cough, no hemoptysis. GASTROINTESTINAL: No diarrhea, no abdominal pain. Positive vomiting, nausea. NEUROLOGICAL: No headaches, no weakness, no numbness. HEMATOLOGICAL: Denies any bleeding or petechiae. GENITOURINARY: Denies any burning micturition, frequency, or urgency. MUSCULOSKELETAL/RHEUMATOLOGICAL: Denies any joint pain, swelling, or any muscle pain. ENDOCRINE: Denies any polyuria or polydipsia. The rest of the 14-point review of systems is negative. PHYSICAL EXAMINATION: GENERAL: Obese habitus. The patient is alert and oriented x3, not in any acute distress. Well developed, well nourished. HEENT: Normocephalic, atraumatic. No pharyngeal erythema. CARDIOVASCULAR: S1 and S2 present. No murmurs, rubs, or gallops. PULMONARY: Chest is clear to auscultation, no wheezing or crackles. ABDOMEN: Soft, nontender, nondistended, normoactive bowel sounds. No palpable organomegaly. MUSCULOSKELETAL: No joint swelling or deformity. EXTREMITIES: No pedal edema. Left foot with amputation of first and second digit, distinct odor, wet bandage, open wound. NEUROLOGICAL: Gross neurological examination did not reveal any focal deficits. SKIN: No rashes. Assessment and plan #Syncope, Multiple falls, multifactorial secondary to orthostatic hypotension, peripheral neuropathy from diabetes, autonomic dysfunction from diabetes #Orthostatic Hypotension, component of hypovolemia superimposed on likely autonomic dysfunction from diabetes - Continue IV NS - Continue to follow orthostatics Fall precautions PT OT consulted - monitor on telemetry for arrhythmia - Case discussed with patient's PCP, Dr. Garcia, who will be visiting with patient tomorrow for capacity evaluation and goals of care conversation #Osteomyelitis #Diabetic Foot Ulcer with superimposed infection Foot x-ray shows cortical erosions medial distal left first metatarsal Ordered CRP and ESR Begin Unasyn 3g q6h and vancomycin per pharmacy, follow vanc trough for toxicity - Blood cultures pending - Deep wound culture data pending vascular surgery consultation ID, Dr. Villegas consulted Wound care consulted Vascular surgery, Dr. Grady consulted #Elevated Troponins, representing Type II NSTEMI #RBBB #HTN Troponin 0.143, and repeated 0.99. Daily ASA 81 mg, atorvastatin 80mg HS, metoprolol 25mg BID - Lisinopril 5mg BID Ordered lipid panel, HbA1c, TSH - Awaiting echocardiogram - continue cardiac monitoring Cardiology consulted #Diabetes Mellitus 2 Begin Accu-Cheks and sliding scale insulin -Takes 30U long acting at home, placed him on 17U levemir BID here - A1c pending as above Chronic Medical Conditions #Hyperlipidemia Statin as above Monitor vital signs Monitor CBC Monitor CMP Labs and medication were reviewed.. Continue with symptomatic treatment. Resume home medication. Monitor labs and vitals. Further recommendations as per clinical course of the patient Dictation was produced using [employer] dictation software. please excuse any grammatical, word or spelling errors. I saw and evaluated the patient during the angela and critical portions of this encounter, and discussed the case in detail with the resident author of this note, I agree with the Assessment and Plan, and my changes, if any, are highlighted in blue. 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, NEEDLE ASPIRATION LEFT EYE Q 3 MONTHS, PAIN CLINIC Past Anesthesia/Blood Transfusion Reactions: No Reported Reaction Past Psychological History: Anxiety Smoking Status: Current every day smoker Past Alcohol Use History: None Reported Past Drug Use History: None Reported - Past Family History Mother Family Medical History: Cancer Additional Family Medical History / Comment(s): BREAST Sister(s) Family Medical History: Cancer Medications and Allergies Home Medications Medication Instructions Recorded Confirmed Type ALPRAZolam [Xanax] 2 mg PO Q12H 02/24/14 05/21/24 History Hydrocodone/Acetaminophen 1 tab PO BID 04/13/15 05/21/24 History [Hydrocodone/Acetaminophen 7.5-325] Insulin Aspart [NovoLOG Flexpen] 1 - 30 units SQ AC-TID PRN 12/31/23 05/21/24 History lisinopriL [Zestril] 2.5 mg PO DAILY #30 tab 01/03/24 05/21/24 Rx Albuterol Inhaler [Ventolin Hfa 2 puff INHALATION RT-QID PRN 05/21/24 05/21/24 History Inhaler] Atorvastatin [Lipitor] 20 mg PO DAILY 05/21/24 05/21/24 History Insulin Glargine,Hum.rec.anlog 30 units SQ BID PRN 05/21/24 05/21/24 History [Lantus Solostar Pen] Semaglutide [Ozempic] 0.5 mg SQ MO 05/21/24 05/21/24 History Tobramycin 0.3% Ophth Soln [Tobrex 2 drops BOTH EYES Q4H 05/21/24 05/21/24 History 0.3% Ophth Soln] Allergies Allergy/AdvReac Type Severity Reaction Status Date / Time No Known Allergies Allergy Verified 05/21/24 10:00 Physical Exam Osteopathic Statement: *. No significant issues noted on an osteopathic structural exam other than those noted in the History and Physical/Consult. Vitals: Vital Signs Temp Pulse Pulse Pulse Pulse Resp BP 05/21/24 10:42 110 H 110 H 99 05/21/24 08:34 98.6 F 102 H 20 147/84 BP BP BP Pulse Ox 05/21/24 10:42 151/108 130/70 170/104 05/21/24 08:34 96 Intake and Output 05/20/24 05/21/24 05/21/24 22:59 06:59 14:59 Other: Weight 113.398 kg Results CBC & Chem 7: 05/21/24 09:33 05/21/24 09:33 Labs: Abnormal Lab Results - Last 24 Hours (Table) 05/21/24 05/21/24 05/21/24 Range/Units 09:33 09:33 09:33 WBC 13.8 H (3.8-10.6) k/uL Neutrophils # 11.9 H (1.3-7.7) k/uL Lymphocytes # 0.8 L (1.0-4.8) k/uL BUN 22 H (9-20) mg/dL Glucose 186 H (74-99) mg/dL POC Glucose (mg/dL) (70-110) mg/dL Troponin I 0.143 H* (0.000-0.034) ng/mL Total Protein 6.0 L (6.3-8.2) g/dL Albumin 3.4 L (3.5-5.0) g/dL 05/21/24 Range/Units 09:49 WBC (3.8-10.6) k/uL Neutrophils # (1.3-7.7) k/uL Lymphocytes # (1.0-4.8) k/uL BUN (9-20) mg/dL Glucose (74-99) mg/dL POC Glucose (mg/dL) 162 H (70-110) mg/dL Troponin I (0.000-0.034) ng/mL Total Protein (6.3-8.2) g/dL Albumin (3.5-5.0) g/dL
[2024-05-21] MEDS: SODIUM CHLORIDE 0.9% 1,000 ML IV SCH (18:00)
[2024-05-21] MEDS: AMPICILLIN-SULBACTAM 3 GM in SODIUM CHLORIDE 0.9% 100 ML IVPB SCH (18:03)
[2024-05-21] MEDS: ALPRAZolam 1 MG TAB PO SCH (18:05)
[2024-05-21] MEDS: INSULIN ASPART (NovoLOG) 100 UNIT/ML VIAL SQ SCH (18:10)
[2024-05-21 18:11] LABS: Glucose,Whole Blood 155 mg/dL (70-110)
[2024-05-21] MEDS: TOBRAMYCIN 0.3% OPHTH DROPS 5 ML BTL BOTH EYES SCH (18:12)
[2024-05-21] MEDS: ENOXAPARIN 40 MG/0.4 ML SYRINGE SQ SCH (18:13)
[2024-05-21] MEDS: HEPARIN SODIUM 1,000 UN/ML (10ML VL) IV PRN (18:45)
[2024-05-21] MEDS: ATORVASTATIN 80 MG TAB PO SCH (20:48)
[2024-05-21] MEDS: INSULIN DETEMIR (LEVEMIR) 100 UNIT/ML SYR SQ SCH (20:48)
[2024-05-21 20:51] LABS: Glucose,Whole Blood 144 mg/dL (70-110)
[2024-05-21] MEDS: VANCOMYCIN 1,750 MG in SODIUM CHLORIDE 0.9% 500 ML 500 ML IVPB SCH (21:27)
--- NOTE | 2024-05-21 22:34 | P.CONS ---
History of Present Illness - Reason for Consult Consult date: 05/21/24 Left diabetic foot wound Requesting physician: Gilles Saenz - Chief Complaint Weakness and fall x few days - History of Present Illness Patient is a 68-year-old male with a past medical history pertinent for hypertension hyperlipidemia type 2 diabetes mellitus in this patient who recently did have left first and second toe amputation done by Dr. Yariel briones at [facility] as there is no documentation at this facility the patient is not very clear about it patient mention initially 1 toe was removed and he was treated with some antibiotic subsequently lost the other toe as well however did not receive any antibiotics after amputation of his second toe patient are very clear about the type of wound care has been receiving for it patient has been brought into the hospital for recurrent falls that has been progressive getting worse over the last few days patient did have a fall in the bathroom while trying to take a shower with significant abrasion to his forehead patient denies having any fever or any chills denies any headache or URI symptoms no chest pain shortness of breath or cough no nausea no vomiting no abdominal pain patient did have diabetic neuropathy denies significant pain to the left foot wound area on presentation to the hospital the patient was afebrile he was tachycardic but not hypotensive or hypoxic and no need for supplemental oxygen he did have elevated troponin white count 13.8 creatinine 1.03 electrolytes has been normal liver enzymes are normal troponin is elevated patient did have a foot x-ray postoperative amputation changes distal first and second digits and the MTP joints diffuse soft tissue swelling of the foot no bony erosion patient has been admitted to hospital infectious he was consulted for further management of antibiotic therapy patient mention he was not on antibiotic before coming to the hospital, had repeat x-ray did shows cortical erosion needed this fourth metatarsal postsurgical changes with amputation of the first second digits and complete healing of an old proximal phalanx Review of Systems Positive point and negatives has been mentioned in the HPI, complete review of systems was performed and all other systems are negative 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, NEEDLE ASPIRATION LEFT EYE Q 3 MONTHS, PAIN CLINIC Past Anesthesia/Blood Transfusion Reactions: No Reported Reaction Past Psychological History: Anxiety Smoking Status: Current every day smoker Past Alcohol Use History: None Reported Past Drug Use History: None Reported - Past Family History Mother Family Medical History: Cancer Additional Family Medical History / Comment(s): BREAST Sister(s) Family Medical History: Cancer Medications and Allergies Home Medications Medication Instructions Recorded Confirmed Type ALPRAZolam [Xanax] 2 mg PO Q12H 02/24/14 05/21/24 History Hydrocodone/Acetaminophen 1 tab PO BID 04/13/15 05/21/24 History [Hydrocodone/Acetaminophen 7.5-325] Insulin Aspart [NovoLOG Flexpen] 1 - 30 units SQ AC-TID PRN 12/31/23 05/21/24 History lisinopriL [Zestril] 2.5 mg PO DAILY #30 tab 01/03/24 05/21/24 Rx Albuterol Inhaler [Ventolin Hfa 2 puff INHALATION RT-QID PRN 05/21/24 05/21/24 History Inhaler] Atorvastatin [Lipitor] 20 mg PO DAILY 05/21/24 05/21/24 History Insulin Glargine,Hum.rec.anlog 30 units SQ BID PRN 05/21/24 05/21/24 History [Lantus Solostar Pen] Semaglutide [Ozempic] 0.5 mg SQ MO 05/21/24 05/21/24 History Tobramycin 0.3% Ophth Soln [Tobrex 2 drops BOTH EYES Q4H 05/21/24 05/21/24 History 0.3% Ophth Soln] Allergies Allergy/AdvReac Type Severity Reaction Status Date / Time No Known Allergies Allergy Verified 05/21/24 10:00 Physical Exam Vitals: Vital Signs Temp Pulse Pulse Pulse Pulse Resp BP 05/21/24 10:42 110 H 110 H 99 05/21/24 08:34 98.6 F 102 H 20 147/84 BP BP BP Pulse Ox 05/21/24 10:42 151/108 130/70 170/104 05/21/24 08:34 96 Intake and Output 05/21/24 05/21/24 05/21/24 06:59 14:59 22:59 Other: Weight 113.398 kg GENERAL DESCRIPTION: Elderly male lying in bed, no distress. No tachypnea or accessory muscle of respiration use. HEENT: Shows Pallor , no scleral icterus. Oral mucous membrane is dry. No ph aryngeal erythema or thrush NECK: Trachea central, no thyromegaly. LUNGS: Unlabored breathing. Clear to auscultation anteriorly. No wheeze or crackle. HEART: S1, S2, regular rate and rhythm. No loud murmur ABDOMEN: Soft, no tenderness , guarding or rigidity, no organomegaly EXTREMITIES: Left first and second toe amputation wound base with slough tissue surrounding swelling redness and drainage SKIN: No rash, no masses palpable. NEUROLOGICAL: The patient is awake, alert, oriented x3, mood and affect normal. Results CBC & Chem 7: 05/21/24 09:05/21/24 09:33 Labs: Abnormal Lab Results - Last 24 Hours (Table) 05/21/24 05/21/24 05/21/24 Range/Units 09:33 09:33 09:33 WBC 13.8 H (3.8-10.6) k/uL Neutrophils # 11.9 H (1.3-7.7) k/uL Lymphocytes # 0.8 L (1.0-4.8) k/uL BUN 22 H (9-20) mg/dL Glucose 186 H (74-99) mg/dL POC Glucose (mg/dL) (70-110) mg/dL Troponin I 0.143 H* (0.000-0.034) ng/mL Total Protein 6.0 L (6.3-8.2) g/dL Albumin 3.4 L (3.5-5.0) g/dL 05/21/24 05/21/24 Range/Units 09:49 13:57 WBC (3.8-10.6) k/uL Neutrophils # (1.3-7.7) k/uL Lymphocytes # (1.0-4.8) k/uL BUN (9-20) mg/dL Glucose (74-99) mg/dL POC Glucose (mg/dL) 162 H (70-110) mg/dL Troponin I 0.099 H* (0.000-0.034) ng/mL Total Protein (6.3-8.2) g/dL Albumin (3.5-5.0) g/dL Assessment and Plan (1) Diabetic foot infection Current Visit: Yes Status: Acute Code(s): E11.628 - TYPE 2 DIABETES MELLITUS WITH OTHER SKIN COMPLICATIONS; L08.9 - LOCAL INFECTION OF THE SKIN AND SUBCUTANEOUS TISSUE, UNSP SNOMED Code(s): 413764815 (2) Diabetic foot ulcer Current Visit: Yes Status: Acute Code(s): E11.621 - TYPE 2 DIABETES MELLITUS WITH FOOT ULCER; L97.509 - NON-PRESSURE CHRONIC ULCER OTH PRT UNSP FOOT W UNSP SEVERITY SNOMED Code(s): 061906008 Plan: 1patient presented hospital with falls in this patient who recently did have amputation of the left first and second toe now with a nonhealing wound and concerning for underlying cellulitis diabetic foot infection and possible osteomyelitis. 2patient benefit from vascular surgery evaluation for debridement of the wound and deep culture this was discussed with admitting team 3we will empirically treat with vancomycin and Unasyn while waiting for the workup to be completed We will follow on clinical condition and cultures to further adjust medication if needed Thank you for this consultation we will follow the patient along with you Dictation was produced using [employer] dictation software. please excuse any grammatical, word or spelling errors. Time with Patient: Greater than 30
[2024-05-22 02:46] LABS: Chol/HDL Ratio 3.46 Ratio
[2024-05-22 07:06] LABS: Glucose,Whole Blood 136 mg/dL (70-110)
[2024-05-22 07:34] LABS: Basophils % (A) 0 %; Eosinophils # (A) 0.2 k/uL (0-0.7); Eosinophils % (A) 2 %; HCT 44.4 % (39.0-53.0); HGB 14.9 gm/dL (13.0-17.5); Lymphocytes # (A) 1.5 k/uL (1.0-4.8); Lymphocytes % (A) 12 %; MCH 30.1 pg (25.0-35.0); MCHC 33.5 g/dL (31.0-37.0); MCV 89.8 fL (80.0-100.0); Mean Platelet Volume 8.5; Monocytes # (A) 0.8 k/uL (0-1.0); Monocytes % (A) 7 %; Neutrophils # (A) 9.3 k/uL (1.3-7.7); Neutrophils % (A) 78 %; Platelet Count 284 k/uL (150-450); RBC 4.94 m/uL (4.30-5.90); RDW 13.8 % (11.5-15.5)
[2024-05-22 07:43] LABS: INR 1.1 (<1.2); Prothrombin Time 11.8 sec (10.0-12.5)
[2024-05-22 07:53] LABS: C Reactive Protein 8.4 mg/dL (<1.0)
[2024-05-22 08:02] LABS: African American GFR (CKD) 88 (>60 ml/min/1.73 sqM); Anion Gap 5 mmol/L; Blood Urea Nitrogen 17 mg/dL (9-20); Calcium 8.5 mg/dL (8.4-10.2); Carbon Dioxide 28 mmol/L (22-30); Chloride 106 mmol/L (98-107); Glucose 157 mg/dL (74-99); Non-African American GFR(CKD) 76 (>60 ml/min/1.73 sqM); Potassium 3.6 mmol/L (3.5-5.1); Sodium 139 mmol/L (137-145)
[2024-05-22] MEDS: ALBUTEROL HFA INHALER INHALATION PRN (08:39)
--- NOTE | 2024-05-22 10:03 | P.PN ---
Subjective Progress Note Date: 05/22/24 History of Present Illness: The patient is a 68-year-old male with known history of peripheral vascular dis ease, chronic tobacco use, diabetes, hypertension and hyperlipidemia who has underwent amputation of toes by Dr. Grady recently because of infection and gangrene who presented with falls. The patient is somewhat vague with his history but he denies any chest discomfort or change in his breathing. He is not active physically. In the emergency room he had mild elevation of the troponin. He denies any cardiac history. In December he had an echocardiogram that was technically difficult and revealed an ejection fraction of 45 to 50%. He is in sinus mechanism. He has no documented history of myocardial infarction. He has not been followed by cardiology. He has no PND or orthopnea. His greatest factor is medical for the hypertension, hyperlipidemia, diabetes and chronic tobacco use. He has been seen in the emergency room recently with recurrent falls that has been chronic. There is no syncopal episode. Medications: Ozempic, insulin, Zestril 2.5 mg daily, Lipitor 20 mg daily EKG: Sinus mechanism with right bundle branch block and left anterior fascicular block, noted in the past 05/22 Patient is seen today in follow-up and remains in the emergency center. Patient rolled and fell out of bed this morning. No head injury. Patient denies having any chest pain, dizziness, palpitations no shortness of breath. He does complain of feeling thirsty. Patient has been afebrile, heart rate 103, blood pressure 137/74, pulse ox 98% on room air. Patient has been seen by infectious disease with recommendations for I&D of the foot wound. Dr. Grady is on consult as well. WBC 12, hemoglobin 14.9. CRP 8.4. Triglycerides 118, cholesterol 119, LDL 61, HDL 34. Sodium 139, potassium 3.6, BUN 17 creatinine 1.01. TSH 0.971. Telemetry is a sinus rhythm with right bundle branch block. Echocardiogram is pending. Dr. Grady is also on consult. Patient has been maintained on heparin drip. Yesterday, patient was started on beta-shirin, aspirin and lisinopril was increased. Physical Examination: 68-year-old male, alert, appears to be older than stated age Head: Normocephalic. Eyes: Sclerae nonicteric. Neck: Good carotid upstroke, no bruit, no jugular venous distention. Lungs: Clear to auscultation. Heart: Regular rate and rhythm, S1-S2, no S3, no rub. Systolic ejection murmur. Abdomen: Soft nontender, positive bowel sounds no organomegaly. Extremities: [No edema, dressing on the left foot with ulceration on the right great toe Impression: 1. Recurrent falls, etiology unclear 2. Mild troponin most likely present type II myocardial infarction related to the infection in the toe 3. Status post recent amputation of left toe with diabetic foot and nonhealing ulcer 4. History of diabetes 5. History of hyperlipidemia 6. History of smoking 7. Chronic tobacco use Plan: 1. Continue patient on beta-shirin, aspirin and increase the dose of Zestril at 5 mg twice daily 2. Discontinue heparin drip 3. Obtain a limited echocardiogram for further evaluation of the low ventricle systolic function, report is pending 4. Follow renal function and troponin 5. Vascular surgery and infectious disease on consult 6. Depending on his progress further recommendations will be made, thank you for this consult we will follow with you. Nurse practitioner note has been reviewed, I agree with documented findings and plan of care. Patient was seen and examined. Objective - Vital Signs Vital signs: Vital Signs Temp 98 F 05/21/24 18:00 Pulse 103 H 05/22/24 06:29 Resp 20 05/22/24 06:29 BP 137/74 05/22/24 06:29 Pulse Ox 95 05/22/24 00:50 FiO2 Intake & Output 05/21/24 05/22/24 05/22/24 18:59 06:59 18:59 Intake Total 62.679 Balance 62.679 Weight 113.398 kg Intake: Intake, IV Titration 62.679 Amount Heparin Sod,Pork in 0.45% 62.679 NaCl 25,000 unit In 0.45 % NaCl 1 250ml.bag @ 8.82 UNITS/KG/HR 10.002 mls/ hr IV .Q24H [facility] Rx#: [id number] - Labs CBC & Chem 7: 05/22/24 07:06 05/22/24 07:06 Labs: Abnormal Lab Results - Last 24 Hours (Table) 05/21/24 05/21/24 05/21/24 Range/Units 09:33 09:33 09:33 WBC 13.8 H (3.8-10.6) k/uL Neutrophils # 11.9 H (1.3-7.7) k/uL Lymphocytes # 0.8 L (1.0-4.8) k/uL APTT (22.0-30.0) sec BUN 22 H (9-20) mg/dL Glucose 186 H (74-99) mg/dL POC Glucose (mg/dL) (70-110) mg/dL Troponin I 0.143 H* (0.000-0.034) ng/mL Total Protein 6.0 L (6.3-8.2) g/dL Albumin 3.4 L (3.5-5.0) g/dL HDL Cholesterol (40.00-60.00) mg/dL 05/21/24 05/21/24 05/21/24 Range/Units 09:49 13:57 17:27 WBC (3.8-10.6) k/uL Neutrophils # (1.3-7.7) k/uL Lymphocytes # (1.0-4.8) k/uL APTT (22.0-30.0) sec BUN (9-20) mg/dL Glucose (74-99) mg/dL POC Glucose (mg/dL) 162 H (70-110) mg/dL Troponin I 0.099 H* 0.105 H* (0.000-0.034) ng/mL Total Protein (6.3-8.2) g/dL Albumin (3.5-5.0) g/dL HDL Cholesterol (40.00-60.00) mg/dL 05/21/24 05/21/24 05/21/24 Range/Units 17:27 18:10 20:46 WBC (3.8-10.6) k/uL Neutrophils # (1.3-7.7) k/uL Lymphocytes # (1.0-4.8) k/uL APTT (22.0-30.0) sec BUN (9-20) mg/dL Glucose (74-99) mg/dL POC Glucose (mg/dL) 155 H 144 H (70-110) mg/dL Troponin I (0.000-0.034) ng/mL Total Protein (6.3-8.2) g/dL Albumin (3.5-5.0) g/dL HDL Cholesterol 34.40 L (40.00-60.00) mg/dL 05/22/24 05/22/24 05/22/24 Range/Units 00:25 07:04 07:06 WBC 12.0 H (3.8-10.6) k/uL Neutrophils # 9.3 H (1.3-7.7) k/uL Lymphocytes # (1.0-4.8) k/uL APTT 59.6 H (22.0-30.0) sec BUN (9-20) mg/dL Glucose (74-99) mg/dL POC Glucose (mg/dL) 136 H (70-110) mg/dL Troponin I (0.000-0.034) ng/mL Total Protein (6.3-8.2) g/dL Albumin (3.5-5.0) g/dL HDL Cholesterol (40.00-60.00) mg/dL
--- NOTE | 2024-05-22 11:07 | CT ---
EXAMINATION TYPE: CT brain wo con CT DLP: 1486.4 mGycm, Automated exposure control for dose reduction was used. DATE OF EXAM: 05/22/2024 10:59 AM COMPARISON: Prior CT Brain from 05/21/2024. CLINICAL INDICATION:Male, 68 years old with history of fall, on heparin gtt, fall TECHNIQUE: Brain: Multiple axial CT images of the brain were obtained without IV contrast. . Coronal and sagitta l reformats reviewed. FINDINGS: Brain: Extra-axial spaces: No abnormal extra-axial fluid collections. Ventricular system: Within normal limits Cerebral parenchyma: No acute intraparenchymal hemorrhage or mass effect. The bull-white junction is well differentiated. Scattered hypoattenuating areas are seen within the periventricular white matte r. Cerebellum: Unremarkable. Mass effect: No evidence of midline shift. Intracranial vasculature: Atherosclerotic calcifications of the intracranial vessels. Soft tissues: Normal. Calvarium/osseous structures: No depressed skull fracture. Paranasal sinuses and mastoid air cells: Mild mucosal thickening of the left maxillary sinus and post erior right ethmoid sinus. Mastoid air cells are clear. Visualized orbits: Orbital contents are intact. IMPRESSION: 1. No acute intracranial process. 2. Nonspecific white matter changes, likely secondary to chronic small vessel ischemic disease. [facility], , 05/22/2024 11:05 AM
[2024-05-22 11:30] LABS: Erythrocyte Sedimentation Rate 41 mm/Hr (0-20)
[2024-05-22 13:26] LABS: Glucose,Whole Blood 138 mg/dL (70-110)
--- NOTE | 2024-05-22 15:32 | CA ---
Transthoracic Echo Report Name: Roberto Cage Age: 68 Gender: M : 1955 Exam Date: 05/22/2024 08:18 Exam Location: [place] [facility] Ht (in): 66 Wt (lb): 250 Ordering Physician: Alfred Dean MD ([id number]) Attending/Referring Phys: Truck Shop Supervisor Aye Mena RDCS Procedure CPT: Indications: Limited EF Cardiac Hx: Technical Quality: Technically difficult study Contrast 1: Definity Total Dose (mL): 2 Contrast 2: Total Dose (mL): MEASUREMENTS (Male / Female) Normal Values 2D ECHO LV Diastolic Diameter PLAX 5.4 cm 4.2 - 5.9 / 3.9 - 5.3 cm IVS Diastolic Thickness 0.9 cm 0.6 - 1.0 / 0.6 - 0.9 cm LVPW Diastolic Thickness 1.2 cm 0.6 - 1.0 / 0.6 - 0.9 cm LV Relative Wall Thickness 0.4 LVOT Diameter 2.0 cm LV Diastolic Volume MOD BP 130.3 cm??? 67 - 155 / 56 - 104 cm??? LV Systolic Volume MOD BP 81.1 cm??? 22 - 58 / 19 - 49 cm??? LV Ejection Fraction MOD BP 37.8 % >= 55 % LV Cardiac Index MOD BP 2089.8 cm???/min???m??? LV Diastolic Volume MOD 4C 145.3 cm??? LV Systolic Volume MOD 4C 86.8 cm??? LV Ejection Fraction MOD 4C 40.3 % LV Cardiac Index MOD 4C 2489.2 cm???/min???m??? LV Diastolic Length 4C 8.9 cm LV Systolic Length 4C 7.9 cm LV Diastolic Volume MOD 2C 112.8 cm??? LV Systolic Volume MOD 2C 74.1 cm??? LV Ejection Fraction MOD 2C 34.3 % LV Cardiac Index MOD 2C 1645.2 cm???/min???m??? LV Diastolic Length 2C 8.6 cm LV Systolic Length 2C 7.7 cm LA Volume 56.3 cm??? 18 - 58 / 22 - 52 cm??? LA Volume Index 23.9 cm???/m??? 16 - 28 cm???/m??? DOPPLER AV Peak Velocity 107.7 cm/s AV Peak Gradient 4.6 mmHg AV Mean Velocity 69.1 cm/s AV Mean Gradient 2.3 mmHg AV Velocity Time Integral 17.9 cm LVOT Peak Velocity 80.8 cm/s LVOT Peak Gradient 2.6 mmHg LVOT Velocity Time Integral 15.0 cm LVOT Stroke Volume 44.8 cm??? LVOT Stroke Volume Index 20.4 ml/m??? LVOT Cardiac Index 1903.0 cm???/min???m??? AV Area Cont Eq vti 2.5 cm??? AV Area Cont Eq pk 2.2 cm??? MV Peak Velocity 123.5 cm/s MV Peak Gradient 6.1 mmHg MV Mean Velocity 81.7 cm/s MV Mean Gradient 3.0 mmHg MV Velocity Time Integral 21.9 cm PV Peak Velocity 64.5 cm/s PV Peak Gradient 1.7 mmHg FINDINGS Left Ventricle Left ventricular ejection fraction is estimated at 40 %. Moderately increased left ventricular systolic volume. Moderately decreased left ventricular ejection fraction with global hypokinesis. Right Ventricle Right ventricle not well visualized. Right Atrium Right atrium not well visualized. Left Atrium Left atrium not well visualized. Mitral Valve Structurally normal mitral valve. Mild mitral regurgitation. Aortic Valve Aortic valve not well visualized. No aortic valve stenosis or regurgitation. Tricuspid Valve Tricuspid valve not well visualized. No tricuspid stenosis, regurgitation or prolapse. Pulmonic Valve Pulmonic valve not well visualized. Pericardium No pericardial effusion. Aorta Aortic root and proximal ascending aorta not assessed. CONCLUSIONS Impaired LV function with EF at 40% Previewed by: Dr. Elan Mojica MD (Electronically Signed) Final Date: 22 May 2024 15:31
--- NOTE | 2024-05-22 16:11 | P.PN ---
Subjective Progress Note Date: 05/22/24 History of present illness; Patient is a 68 year old male with HTN, Hyperlipidemia, DM2, Left first and se cond digit toe amputation who presents with his son/caregiver who gave the history. The son states he fell and hit his head in the shower prompting him to call EMS. The son states he has been experiencing "a number of falls" since 05/17/24, and he was brought in via EMS on 05/18/24 due to falling and urinary incontinence, and discharged on 05/18/24. The son states he had to "carry him around" after discharge on 05/18/24, as he was unable to walk without falling. The patient states he has only fallen "twice in the past week", and believes his balance issues are due to his amputations. He states he has amputation bandages replaced every 2 days since procedure completed by Dr. Grady. He states his foot is wrapped with bag and bandages to keep it dry while he showers, and is having no current pain from the site. The patient states he is having some nausea and vomiting, but denies loss of consciousness, diarrhea, constipation, fever, urinary changes, headache, chest pain, shortness of breath, or appetite changes. He has no other complaints at this time. -Initial lab work done in the ER showed WBC 13.8, hemoglobin 15.5, platelet 274, sodium 137, potassium 4.2, chloride 101, bicarb 24, BUN 22, creatinine 1.03, glucose 186, troponin 0.143, and repeated 0.99. -EKG done in the ER showed heart rate of 100 , no ST segment elevation or depression seen, no T-wave inversions seen, possible RBBB noted. -CT head done showed no acute intracranial process -Foot x-ray shows cortical erosions medial distal left first metatarsal, possible osteomyelitis Progress note 05/22/2024 patient seen and examined at bedside. Patient with no acute events overnight. This morning after speaking with patient nurse noted to have found patient had fallen, unwitnessed. Subsequently CT scan was ordered. Upon speaking with patient he did not recall event, and stated he was feeling well and had no other complaints. PHYSICAL EXAMINATION: GENERAL: Obese habitus. The patient is alert and oriented x3, not in any acute distress. Well developed, well nourished. HEENT: Normocephalic, atraumatic. No pharyngeal erythema. CARDIOVASCULAR: S1 and S2 present. No murmurs, rubs, or gallops. PULMONARY: Chest is clear to auscultation, no wheezing or crackles. ABDOMEN: Soft, nontender, nondistended, normoactive bowel sounds. No palpable organomegaly. MUSCULOSKELETAL: No joint swelling or deformity. EXTREMITIES: No pedal edema. Left foot Get so much to get up twice you know with amputation of first and second digit, distinct odor, wet bandage, open wound. NEUROLOGICAL: Gross neurological examination did not reveal any focal deficits. SKIN: No rashes. Data reviewed today: WBC 12, potassium 3.6, creatinine 1.01, A1c 8.0, CRP 8.4, ESR 41, TSH 0.971 Assessment and plan #Syncope, Multiple falls, multifactorial secondary to orthostatic hypotension, peripheral neuropathy from diabetes, autonomic dysfunction from diabetes #Orthostatic Hypotension, component of hypovolemia superimposed on likely autonomic dysfunction from diabetes - Continue IV NS - Continue to follow orthostatics, if no sign of improvement with normal saline plan adrenal insufficiency workup Fall precautions PT/OT consulted Brain CT, no acute findings - monitor on telemetry for arrhythmia - Case discussed with patient's PCP, Dr. Garcia, who will be visiting today for capacity evaluation and goals of care conversation #Osteomyelitis #Diabetic Foot Ulcer with superimposed infection Leukocytosis Foot x-ray shows cortical erosions medial distal left first metatarsal CRP 8.4 and ESR 41 Continue Unasyn 3g q6h and vancomycin per pharmacy, follow vanc trough for toxicity, monitor for renal toxicity with daily BMP - Blood cultures pending - Deep wound culture data pending vascular surgery consultation ID, Dr. Villegas following Wound care following Vascular surgery, Dr. Grady following #Elevated Troponins, representing Type II NSTEMI #RBBB #HTN Systolic cardiomyopathy Troponin 0.143, and repeated 0.99. Daily ASA 81 mg, atorvastatin 80mg HS, metoprolol 25mg BID - Lisinopril 5mg BID TSH WNL, cholesterol WNL HDL 34.4 -Echocardiogram with impaired LV function, EF at 40% - continue cardiac monitoring Cardiology note reviewed, continue on current therapy -May need ischemic evaluation in the future # Uncontrolled, Diabetes Mellitus 2 Begin Accu-Cheks and sliding scale insulin, monitor for hypoglycemia -Takes 30U long acting at home, placed him on 17U levemir BID here - A1c 8.0 Chronic Medical Conditions #Hyperlipidemia Statin as above F: Normal saline 75 cc an hour IV E: Replete as needed N: Heart healthy diet E: PT/OT DVT ppx: Subcu Lovenox Code status: Full code Anticipated discharge place: Pending clinical course Anticipated discharge time: Pending clinical course I have seen and evaluated the patient today. Discussed with the resident and agree with the residents finding and plan as documented in the resident's note. Changes highlighted in blue font. Objective - Vital Signs Vital signs: Vital Signs Temp 97.6 F 05/22/24 14:35 Pulse 84 05/22/24 14:35 Resp 18 05/22/24 14:35 BP 147/82 05/22/24 14:35 Pulse Ox 95 05/22/24 14:35 FiO2 Intake & Output 05/21/24 05/22/24 05/22/24 18:59 06:59 18:59 Intake Total 62.679 Balance 62.679 Weight 113.398 kg Intake: Intake, IV Titration 62.679 Amount Heparin Sod,Pork in 0.45% 62.679 NaCl 25,000 unit In 0.45 % NaCl 1 250ml.bag @ 8.82 UNITS/KG/HR 10.002 mls/ hr IV .Q24H [facility] Rx#: [id number] - Labs CBC & Chem 7: 05/22/24 07:06 05/22/24 07:06 Labs: Abnormal Lab Results - Last 24 Hours (Table) 05/21/24 05/21/24 05/21/24 Range/Units 17:27 17:27 18:10 WBC (3.8-10.6) k/uL Neutrophils # (1.3-7.7) k/uL ESR (0-20) mm/Hr APTT (22.0-30.0) sec Glucose (74-99) mg/dL POC Glucose (mg/dL) 155 H (70-110) mg/dL Hemoglobin A1c (<=6.0) % Troponin I 0.105 H* (0.000-0.034) ng/mL C-Reactive Protein (<1.0) mg/dL HDL Cholesterol 34.40 L (40.00-60.00) mg/dL 05/21/24 05/22/24 05/22/24 Range/Units 20:46 00:25 07:04 WBC (3.8-10.6) k/uL Neutrophils # (1.3-7.7) k/uL ESR (0-20) mm/Hr APTT 59.6 H (22.0-30.0) sec Glucose (74-99) mg/dL POC Glucose (mg/dL) 144 H 136 H (70-110) mg/dL Hemoglobin A1c (<=6.0) % Troponin I (0.000-0.034) ng/mL C-Reactive Protein (<1.0) mg/dL HDL Cholesterol (40.00-60.00) mg/dL 05/22/24 05/22/24 05/22/24 Range/Units 07:06 07:06 07:06 WBC 12.0 H (3.8-10.6) k/uL Neutrophils # 9.3 H (1.3-7.7) k/uL ESR 41 H (0-20) mm/Hr APTT (22.0-30.0) sec Glucose 157 H (74-99) mg/dL POC Glucose (mg/dL) (70-110) mg/dL Hemoglobin A1c 8.0 H (<=6.0) % Troponin I (0.000-0.034) ng/mL C-Reactive Protein 8.4 H (<1.0) mg/dL HDL Cholesterol (40.00-60.00) mg/dL 05/22/24 Range/Units 13:25 WBC (3.8-10.6) k/uL Neutrophils # (1.3-7.7) k/uL ESR (0-20) mm/Hr APTT (22.0-30.0) sec Glucose (74-99) mg/dL POC Glucose (mg/dL) 138 H (70-110) mg/dL Hemoglobin A1c (<=6.0) % Troponin I (0.000-0.034) ng/mL C-Reactive Protein (<1.0) mg/dL HDL Cholesterol (40.00-60.00) mg/dL Microbiology - Last 24 Hours (Table) 05/21/24 23:00 Gram Stain - Preliminary Foot - Left
[2024-05-22 17:03] LABS: Glucose,Whole Blood 116 mg/dL (70-110)
--- NOTE | 2024-05-22 17:21 | P.PN ---
Subjective Progress Note Date: 05/22/24 Principal diagnosis: Reason for follow-up is left diabetic foot ulcer and infection Patient is a 68-year-old male with a past medical history pertinent for hypertension hyperlipidemia type 2 diabetes mellitus in this patient who recently did have left first and second toe amputation done by Dr. Grady, now presented to this facility after apparently the patient had a fall at home weakness and did have a nonhealing wound to the left foot with some drainage concerning for diabetic foot infection possible osteo. On today's evaluation that is 05/22/2024,the patient remains to be afebrile, patient is on room air not requiring supplemental oxygen and denies any shor tness of breath no chest pain or cough.Patient denies having any nausea or vomiting, no abdominal pain and no diarrhea has been reported, denies any worsening pain to the left foot. Patient white count is down to 12.0, creatinine 1.01 ESR is 41 CRP is 8.4 cultures are pending Objective - Vital Signs Vital signs: Vital Signs Temp 98 F 05/21/24 18:00 Pulse 103 H 05/22/24 06:29 Resp 20 05/22/24 06:29 BP 137/74 05/22/24 06:29 Pulse Ox 95 05/22/24 00:50 FiO2 Intake & Output 05/21/24 05/22/24 05/22/24 18:59 06:59 18:59 Intake Total 62.679 Balance 62.679 Weight 113.398 kg Intake: Intake, IV Titration 62.679 Amount Heparin Sod,Pork in 0.45% 62.679 NaCl 25,000 unit In 0.45 % NaCl 1 250ml.bag @ 8.82 UNITS/KG/HR 10.002 mls/ hr IV .Q24H [facility] Rx#: [id number] - Exam GENERAL DESCRIPTION: An elderly male lying in bed in no distress RESPIRATORY SYSTEM: Unlabored breathing , decreased breath sounds at bases HEART: S1 S2 regular rate and rhythm , ABDOMEN: Soft , no tenderness EXTREMITIES: Left foot wound is currently dressed no drainage on the dressing - Labs CBC & Chem 7: 05/22/24 07:06 05/22/24 07:06 Labs: Abnormal Lab Results - Last 24 Hours (Table) 05/21/24 05/21/24 05/21/24 Range/Units 13:57 17:27 17:27 WBC (3.8-10.6) k/uL Neutrophils # (1.3-7.7) k/uL APTT (22.0-30.0) sec Glucose (74-99) mg/dL POC Glucose (mg/dL) (70-110) mg/dL Hemoglobin A1c (<=6.0) % Troponin I 0.099 H* 0.105 H* (0.000-0.034) ng/mL C-Reactive Protein (<1.0) mg/dL HDL Cholesterol 34.40 L (40.00-60.00) mg/dL 05/21/24 05/21/24 05/22/24 Range/Units 18:10 20:46 00:25 WBC (3.8-10.6) k/uL Neutrophils # (1.3-7.7) k/uL APTT 59.6 H (22.0-30.0) sec Glucose (74-99) mg/dL POC Glucose (mg/dL) 155 H 144 H (70-110) mg/dL Hemoglobin A1c (<=6.0) % Troponin I (0.000-0.034) ng/mL C-Reactive Protein (<1.0) mg/dL HDL Cholesterol (40.00-60.00) mg/dL 05/22/24 05/22/24 05/22/24 Range/Units 07:04 07:06 07:06 WBC 12.0 H (3.8-10.6) k/uL Neutrophils # 9.3 H (1.3-7.7) k/uL APTT (22.0-30.0) sec Glucose (74-99) mg/dL POC Glucose (mg/dL) 136 H (70-110) mg/dL Hemoglobin A1c 8.0 H (<=6.0) % Troponin I (0.000-0.034) ng/mL C-Reactive Protein (<1.0) mg/dL HDL Cholesterol (40.00-60.00) mg/dL 05/22/24 Range/Units 07:06 WBC (3.8-10.6) k/uL Neutrophils # (1.3-7.7) k/uL APTT (22.0-30.0) sec Glucose 157 H (74-99) mg/dL POC Glucose (mg/dL) (70-110) mg/dL Hemoglobin A1c (<=6.0) % Troponin I (0.000-0.034) ng/mL C-Reactive Protein 8.4 H (<1.0) mg/dL HDL Cholesterol (40.00-60.00) mg/dL Assessment and Plan (1) Diabetic foot infection Current Visit: Yes Status: Acute Code(s): E11.628 - TYPE 2 DIABETES MELLITUS WITH OTHER SKIN COMPLICATIONS; L08.9 - LOCAL INFECTION OF THE SKIN AND SUBCUTANEOUS TISSUE, UNSP SNOMED Code(s): 353369702 (2) Diabetic foot ulcer Current Visit: Yes Status: Acute Code(s): E11.621 - TYPE 2 DIABETES MELLITUS WITH FOOT ULCER; L97.509 - NON-PRESSURE CHRONIC ULCER OTH PRT UNSP FOOT W UNSP SEVERITY SNOMED Code(s): 558584862 Plan: 1patient presented hospital with falls in this patient who recently did have amputation of the left first and second toe now with a nonhealing wound and concerning for underlying cellulitis diabetic foot infection and possible osteomyelitis. 2patient benefit from vascular surgery evaluation for debridement of the wound and deep culture, vascular surgery consult is currently pending 3patient to continue with vancomycin and Unasyn while waiting for the culture to finalize and monitor clinical course closely Dictation was produced using [employer] dictation software. please excuse any grammatical, word or spelling errors. Time with Patient: Less than 30
--- NOTE | 2024-05-22 19:07 | P.GSCN ---
History of Present Illness History of present illness: 68-year-old gentleman well-known to me from the past big toe and second toe amputation in the past patient patient last follow-up in the wound clinic because he had no right. Patient had a history of fall at home was brought into the hospital in ER patient has history of diabetes hypertension repeat EMEA his white cell count is 13.8 no fever or chills present On examination patient was seen in the emergency room patient had a big toe and second toe amputation second toe amputation healed the big toe has open wound with some mild drainage culture has been taken patient under care of infectious disease IV antibiotic Chest is clear few crackles the lung bases. 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, NEEDLE ASPIRATION LEFT EYE Q 3 MONTHS, PAIN CLINIC Past Anesthesia/Blood Transfusion Reactions: No Reported Reaction Past Psychological History: Anxiety Smoking Status: Current every day smoker Past Alcohol Use History: None Reported Past Drug Use History: None Reported - Past Family History Mother Family Medical History: Cancer Additional Family Medical History / Comment(s): BREAST Sister(s) Family Medical History: Cancer Medications and Allergies Home Medications Medication Instructions Recorded Confirmed Type ALPRAZolam [Xanax] 2 mg PO Q12H 02/24/14 05/21/24 History Hydrocodone/Acetaminophen 1 tab PO BID 04/13/15 05/21/24 History [Hydrocodone/Acetaminophen 7.5-325] Insulin Aspart [NovoLOG Flexpen] 1 - 30 units SQ AC-TID PRN 12/31/23 05/21/24 History lisinopriL [Zestril] 2.5 mg PO DAILY #30 tab 01/03/24 05/21/24 Rx Albuterol Inhaler [Ventolin Hfa 2 puff INHALATION RT-QID PRN 05/21/24 05/21/24 History Inhaler] Atorvastatin [Lipitor] 20 mg PO DAILY 05/21/24 05/21/24 History Insulin Glargine,Hum.rec.anlog 30 units SQ BID PRN 05/21/24 05/21/24 History [Lantus Solostar Pen] Semaglutide [Ozempic] 0.5 mg SQ MO 05/21/24 05/21/24 History Tobramycin 0.3% Ophth Soln [Tobrex 2 drops BOTH EYES Q4H 05/21/24 05/21/24 History 0.3% Ophth Soln] Allergies Allergy/AdvReac Type Severity Reaction Status Date / Time No Known Allergies Allergy Verified 05/21/24 10:00 Surgical - Exam Vital Signs Temp Pulse Resp BP Pulse Ox 98.6 F 102 H 20 147/84 96 05/21/24 08:34 05/21/24 08:34 05/21/24 08:34 05/21/24 08:34 05/21/24 08:34 Results - Labs 05/22/24 07:06 05/22/24 07:06 Abnormal Lab Results - Last 24 Hours (Table) 05/21/24 05/21/24 05/22/24 Range/Units 17:27 20:46 00:25 WBC (3.8-10.6) k/uL Neutrophils # (1.3-7.7) k/uL ESR (0-20) mm/Hr APTT 59.6 H (22.0-30.0) sec Glucose (74-99) mg/dL POC Glucose (mg/dL) 144 H (70-110) mg/dL Hemoglobin A1c (<=6.0) % C-Reactive Protein (<1.0) mg/dL HDL Cholesterol 34.40 L (40.00-60.00) mg/dL 05/22/24 05/22/24 05/22/24 Range/Units 07:04 07:06 07:06 WBC 12.0 H (3.8-10.6) k/uL Neutrophils # 9.3 H (1.3-7.7) k/uL ESR 41 H (0-20) mm/Hr APTT (22.0-30.0) sec Glucose (74-99) mg/dL POC Glucose (mg/dL) 136 H (70-110) mg/dL Hemoglobin A1c 8.0 H (<=6.0) % C-Reactive Protein (<1.0) mg/dL HDL Cholesterol (40.00-60.00) mg/dL 05/22/24 05/22/24 05/22/24 Range/Units 07:06 13:25 17:02 WBC (3.8-10.6) k/uL Neutrophils # (1.3-7.7) k/uL ESR (0-20) mm/Hr APTT (22.0-30.0) sec Glucose 157 H (74-99) mg/dL POC Glucose (mg/dL) 138 H 116 H (70-110) mg/dL Hemoglobin A1c (<=6.0) % C-Reactive Protein 8.4 H (<1.0) mg/dL HDL Cholesterol (40.00-60.00) mg/dL Microbiology - Last 24 Hours (Table) 05/21/24 23:00 Gram Stain - Preliminary Foot - Left Diabetes panel 05/21/24 05/22/24 05/22/24 Range/Units 17:27 07:06 07:06 Sodium 139 (137-145) mmol/L Potassium 3.6 (3.5-5.1) mmol/L Chloride 106 (98-107) mmol/L Carbon Dioxide 28 (22-30) mmol/L BUN 17 (9-20) mg/dL Creatinine 1.01 (0.66-1.25) mg/dL Glucose 157 H (74-99) mg/dL Hemoglobin A1c 8.0 H (<=6.0) % Calcium 8.5 (8.4-10.2) mg/dL Triglycerides 118.00 (0.00-149.00) mg/dL HDL Cholesterol 34.40 L (40.00-60.00) mg/dL Thyroid panel 05/22/24 Range/Units 07:06 TSH 0.971 (0.465-4.680) mIU/L Calcium panel 05/22/24 Range/Units 07:06 Calcium 8.5 (8.4-10.2) mg/dL Pituitary panel 05/22/24 Range/Units 07:06 Sodium 139 (137-145) mmol/L Potassium 3.6 (3.5-5.1) mmol/L Chloride 106 (98-107) mmol/L Carbon Dioxide 28 (22-30) mmol/L BUN 17 (9-20) mg/dL Creatinine 1.01 (0.66-1.25) mg/dL Glucose 157 H (74-99) mg/dL Calcium 8.5 (8.4-10.2) mg/dL TSH 0.971 (0.465-4.680) mIU/L Adrenal panel 05/22/24 Range/Units 07:06 Sodium 139 (137-145) mmol/L Potassium 3.6 (3.5-5.1) mmol/L Chloride 106 (98-107) mmol/L Carbon Dioxide 28 (22-30) mmol/L BUN 17 (9-20) mg/dL Creatinine 1.01 (0.66-1.25) mg/dL Glucose 157 H (74-99) mg/dL Calcium 8.5 (8.4-10.2) mg/dL
[2024-05-22 21:09] LABS: Glucose,Whole Blood 110 mg/dL (70-110)
[2024-05-23 06:29] LABS: Glucose,Whole Blood 81 mg/dL (70-110)
[2024-05-23 07:55] LABS: Basophils % (A) 0 %; Eosinophils # (A) 0.3 k/uL (0-0.7); Eosinophils % (A) 3 %; HCT 47.1 % (39.0-53.0); Lymphocytes # (A) 1.5 k/uL (1.0-4.8); Lymphocytes % (A) 15 %; MCH 29.2 pg (25.0-35.0); MCHC 31.9 g/dL (31.0-37.0); MCV 91.7 fL (80.0-100.0); Mean Platelet Volume 8.2; Monocytes # (A) 0.8 k/uL (0-1.0); Monocytes % (A) 8 %; Neutrophils # (A) 7.3 k/uL (1.3-7.7); Neutrophils % (A) 73 %; Platelet Count 288 k/uL (150-450); RBC 5.14 m/uL (4.30-5.90); RDW 13.5 % (11.5-15.5)
[2024-05-23 08:09] LABS: African American GFR (CKD) >90 (>60 ml/min/1.73 sqM); Anion Gap 6 mmol/L; Blood Urea Nitrogen 9 mg/dL (9-20); Calcium 8.5 mg/dL (8.4-10.2); Carbon Dioxide 30 mmol/L (22-30); Chloride 106 mmol/L (98-107); Glucose 83 mg/dL (74-99); Non-African American GFR(CKD) >90 (>60 ml/min/1.73 sqM); Potassium 3.7 mmol/L (3.5-5.1); Sodium 142 mmol/L (137-145)
[2024-05-23] MEDS: ENOXAPARIN 40 MG/0.4 ML SYRINGE SQ SCH (09:22)
[2024-05-23] MEDS: lisinopriL 10 MG TAB PO SCH (09:22)
[2024-05-23 11:44] LABS: Glucose,Whole Blood 131 mg/dL (70-110)
--- NOTE | 2024-05-23 12:02 | P.PN ---
Subjective Progress Note Date: 05/23/24 History of Present Illness: The patient is a 68-year-old male with known history of peripheral vascular dis ease, chronic tobacco use, diabetes, hypertension and hyperlipidemia who has underwent amputation of toes by Dr. Grady recently because of infection and gangrene who presented with falls. The patient is somewhat vague with his history but he denies any chest discomfort or change in his breathing. He is not active physically. In the emergency room he had mild elevation of the troponin. He denies any cardiac history. In December he had an echocardiogram that was technically difficult and revealed an ejection fraction of 45 to 50%. He is in sinus mechanism. He has no documented history of myocardial infarction. He has not been followed by cardiology. He has no PND or orthopnea. His greatest factor is medical for the hypertension, hyperlipidemia, diabetes and chronic tobacco use. He has been seen in the emergency room recently with recurrent falls that has been chronic. There is no syncopal episode. Medications: Ozempic, insulin, Zestril 2.5 mg daily, Lipitor 20 mg daily EKG: Sinus mechanism with right bundle branch block and left anterior fascicular block, noted in the past 05/22 Patient is seen today in follow-up and remains in the emergency center. Patient rolled and fell out of bed this morning. No head injury. Patient denies having any chest pain, dizziness, palpitations no shortness of breath. He does complain of feeling thirsty. Patient has been afebrile, heart rate 103, blood pressure 137/74, pulse ox 98% on room air. Patient has been seen by infectious disease with recommendations for I&D of the foot wound. Dr. Grady is on consult as well. WBC 12, hemoglobin 14.9. CRP 8.4. Triglycerides 118, cholesterol 119, LDL 61, HDL 34. Sodium 139, potassium 3.6, BUN 17 creatinine 1.01. TSH 0.971. Telemetry is a sinus rhythm with right bundle branch block. Echocardiogram is pending. Dr. Grady is also on consult. Patient has been maintained on heparin drip. Yesterday, patient was started on beta-shirin, aspirin and lisinopril was increased. 05/23 Yesterday, lisinopril was increased to 5 mg twice daily for blood pressure control. Blood pressure remains elevated today despite the changes. Blood pressure 169/74, heart rate 95, pulse ox 97% on room air. CBC is unremarkable. Electrolytes and renal function within normal limits. Echocardiogram reviewed with the patient. Echocardiogram reveals EF 40%. Physical Examination: 68-year-old male, alert, appears to be older than stated age Head: Normocephalic. Eyes: Sclerae nonicteric. Neck: Good carotid upstroke, no bruit, no jugular venous distention. Lungs: Clear to auscultation. Heart: Regular rate and rhythm, S1-S2, no S3, no rub. Systolic ejection murmur. Abdomen: Soft nontender, positive bowel sounds no organomegaly. Extremities: [No edema, dressing on the left foot with ulceration on the right great toe Impression: 1. Recurrent falls, etiology unclear 2. Mild troponin most likely present type II myocardial infarction related to the infection in the toe 3. Status post recent amputation of left toe with diabetic foot and nonhealing ulcer 4. History of diabetes 5. History of hyperlipidemia 6. History of smoking 7. Chronic tobacco use Plan: 1. Continue patient on aspirin 81 mg daily, atorvastatin 80 mg at bedtime, Lopressor 25 mg twice daily 2. Increase lisinopril to 10 mg twice daily 3. Monitor blood pressure closely 4. Vascular surgery and infectious disease on consult 5. Depending on his progress further recommendations will be made, thank you for this consult we will follow with you. Nurse practitioner note has been reviewed, I agree with documented findings and plan of care. Patient was seen and examined. Objective - Vital Signs Vital signs: Vital Signs Temp 97.8 F 05/23/24 07:40 Pulse 91 05/23/24 09:23 Resp 17 05/23/24 07:40 BP 158/78 05/23/24 09:23 Pulse Ox 97 05/23/24 07:40 FiO2 Intake & Output 05/22/24 05/23/24 05/23/24 18:59 06:59 18:59 Intake Total 600 20 Output Total 1200 Balance -600 20 Weight 98.5 kg Intake: IV 60 20 Invasive Line 1 30 10 Invasive Line 2 10 Invasive Line 3 10 Invasive Line 4 10 10 Oral 540 Output: Urine 1200 Straight 1200 Other: Voiding Method Urinal Urinal Diaper Diaper - Labs CBC & Chem 7: 05/23/24 06:33 05/23/24 06:33 Labs: Abnormal Lab Results - Last 24 Hours (Table) 05/22/24 05/22/24 05/22/24 Range/Units 07:06 07:06 13:25 ESR 41 H (0-20) mm/Hr POC Glucose (mg/dL) 138 H (70-110) mg/dL Hemoglobin A1c 8.0 H (<=6.0) % 05/22/24 Range/Units 17:02 ESR (0-20) mm/Hr POC Glucose (mg/dL) 116 H (70-110) mg/dL Hemoglobin A1c (<=6.0) % Microbiology - Last 24 Hours (Table) 05/21/24 17:27 Blood Culture - Preliminary Blood 05/21/24 23:00 Gram Stain - Preliminary Foot - Left Wound Culture - Preliminary Presumptive MRSA
--- NOTE | 2024-05-23 14:56 | P.PN ---
Subjective Progress Note Date: 05/23/24 History of present illness; Patient is a 68 year old male with HTN, Hyperlipidemia, DM2, Left first and se cond digit toe amputation who presents with his son/caregiver who gave the history. The son states he fell and hit his head in the shower prompting him to call EMS. The son states he has been experiencing "a number of falls" since 05/17/24, and he was brought in via EMS on 05/18/24 due to falling and urinary incontinence, and discharged on 05/18/24. The son states he had to "carry him around" after discharge on 05/18/24, as he was unable to walk without falling. The patient states he has only fallen "twice in the past week", and believes his balance issues are due to his amputations. He states he has amputation bandages replaced every 2 days since procedure completed by Dr. Grady. He states his foot is wrapped with bag and bandages to keep it dry while he showers, and is having no current pain from the site. The patient states he is having some nausea and vomiting, but denies loss of consciousness, diarrhea, constipation, fever, urinary changes, headache, chest pain, shortness of breath, or appetite changes. He has no other complaints at this time. -Initial lab work done in the ER showed WBC 13.8, hemoglobin 15.5, platelet 274, sodium 137, potassium 4.2, chloride 101, bicarb 24, BUN 22, creatinine 1.03, glucose 186, troponin 0.143, and repeated 0.99. -EKG done in the ER showed heart rate of 100 , no ST segment elevation or depression seen, no T-wave inversions seen, possible RBBB noted. -CT head done showed no acute intracranial process -Foot x-ray shows cortical erosions medial distal left first metatarsal, possible osteomyelitis Progress note 05/22/2024 patient seen and examined at bedside. Patient with no acute events overnight. This morning after speaking with patient nurse noted to have found patient had fallen, unwitnessed. Subsequently CT scan was ordered. Upon speaking with patient he did not recall event, and stated he was feeling well and had no other complaints. Progress note 05/23/2024atient seen and examined at bedside. Patient with no urine output, bladder scan completed with shown 1000 cc of retention and straight cath per protocol. Patient doing well today, no complaints of pain. PHYSICAL EXAMINATION: GENERAL: Obese habitus. The patient is alert and oriented x3, not in any acute distress. Well developed, well nourished. HEENT: Normocephalic, atraumatic. No pharyngeal erythema. CARDIOVASCULAR: S1 and S2 present. No murmurs, rubs, or gallops. PULMONARY: Chest is clear to auscultation, no wheezing or crackles. ABDOMEN: Soft, nontender, nondistended, normoactive bowel sounds. No palpable organomegaly. MUSCULOSKELETAL: No joint swelling or deformity. EXTREMITIES: No pedal edema. Left foot Get so much to get up twice you know with amputation of first and second digit, distinct odor, wet bandage, open wound. NEUROLOGICAL: Gross neurological examination did not reveal any focal deficits. SKIN: No rashes. Data reviewed today 05/23/2024: WBC 10, hemoglobin 15, platelets 288, sodium 142, potassium 3.7, creatinine 0. 77, glucose 83 Assessment and plan #Syncope, Multiple falls, multifactorial secondary to orthostatic hypotension, peripheral neuropathy from diabetes, autonomic dysfunction from diabetes #Orthostatic Hypotension, component of hypovolemia superimposed on likely autonomic dysfunction from diabetes, resolved - Continue IV NS - Orthostatics improved with normal saline Fall precautions PT/OT following Brain CT, no acute findings - monitor on telemetry for arrhythmia - Case discussed with patient's PCP, Dr. Garcia's office #Osteomyelitis #Diabetic Foot Ulcer with superimposed infection #Leukocytosis, resolved Foot x-ray shows cortical erosions medial distal left first metatarsal Initial CRP 8.4 and ESR 41 Initial WBC 13.8 => 12.0 => 10.0 Continue Unasyn 3g q6h and vancomycin per pharmacy, follow vanc trough for toxicity, monitor for renal toxicity with daily BMP - Blood cultures pending, wound culture with presumptive MRSA Wound care following Vascular surgery following Discussed management with ID, recommending further assessment by vascular surgery for possible debridement, pending bone scan Patient may need PICC line for continuation of IV medication at discharge #Elevated Troponins, representing Type II NSTEMI #RBBB #HTN Systolic cardiomyopathy Initial troponin 0.143, and repeated 0.99. Daily ASA 81 mg, atorvastatin 80mg HS, metoprolol 25mg BID TSH WNL, cholesterol WNL HDL 34.4 - Echocardiogram with impaired LV function, EF at 40% - continue cardiac monitoring Cardiology note reviewed, increase lisinopril to 10 twice daily -May need ischemic evaluation in the future # Uncontrolled, Diabetes Mellitus 2 Begin Accu-Cheks and sliding scale insulin, monitor for hypoglycemia -Takes 30U long acting at home, placed him on 17U levemir BID initially, continue 17 units at bedtime - A1c 8.0 #Urinary retention likely secondary to neurogenic bladder Bladder scan completed 1000 cc retention in a.m. Initiate Del Angel catheter Begin Flomax 0.4 mg daily Chronic Medical Conditions #Hyperlipidemia Statin as above F: Normal saline 75 cc an hour IV E: Replete as needed N: Heart healthy diet E: PT/OT DVT ppx: Subcu Lovenox Code status: Full code Anticipated discharge place: Pending clinical course Anticipated discharge time: Pending clinical course I have seen and evaluated the patient today. Discussed with the resident and agree with the residents finding and plan as documented in the resident's note. Changes highlighted in blue font. Objective - Vital Signs Vital signs: Vital Signs Temp 97.3 F L 05/23/24 12:00 Pulse 93 05/23/24 12:00 Resp 17 05/23/24 12:00 BP 134/75 05/23/24 12:00 Pulse Ox 98 05/23/24 12:00 FiO2 Intake & Output 05/22/24 05/23/24 05/23/24 18:59 06:59 18:59 Intake Total 600 140 Output Total 1200 Balance -600 140 Weight 98.5 kg Intake: IV 60 40 Invasive Line 1 30 20 Invasive Line 2 10 Invasive Line 3 10 Invasive Line 4 10 20 Oral 540 100 Output: Urine 1200 Straight 1200 Other: Voiding Method Urinal Urinal Diaper Diaper # Voids 0 # Bowel Movements 2 - Labs CBC & Chem 7: 05/23/24 06:33 05/23/24 06:33 Labs: Abnormal Lab Results - Last 24 Hours (Table) 05/22/24 05/23/24 Range/Units 17:02 11:42 POC Glucose (mg/dL) 116 H 131 H (70-110) mg/dL Microbiology - Last 24 Hours (Table) 05/21/24 17:27 Blood Culture - Preliminary Blood 05/21/24 23:00 Gram Stain - Preliminary Foot - Left Wound Culture - Preliminary Presumptive MRSA
--- NOTE | 2024-05-23 15:25 | P.PN ---
Subjective Progress Note Date: 05/23/24 Principal diagnosis: Reason for follow-up is left diabetic foot ulcer and infection Patient is a 68-year-old male with a past medical history pertinent for hypertension hyperlipidemia type 2 diabetes mellitus in this patient who recently did have left first and second toe amputation done by Dr. Grady, now presented to this facility after apparently the patient had a fall at home weakness and did have a nonhealing wound to the left foot with some drainage concerning for diabetic foot infection possible osteo. On today's evaluation that is 05/23/2024, the patient continues to be afebrile, the patient is on room air and breathing comfortably, the Pt denies having any chest pain or cough, the patient denies having any abdominal pain no vomiting or any diarrhea patient has any worsening pain to the left foot wound. Patient white count has normalized to 10.0, creatinine 0.77 he did have a sed rate of 41 local culture with presumptive MRSA sensitivities pending Objective - Vital Signs Vital signs: Vital Signs Temp 97.8 F 05/23/24 07:40 Pulse 91 05/23/24 09:23 Resp 17 05/23/24 07:40 BP 158/78 05/23/24 09:23 Pulse Ox 97 05/23/24 07:40 FiO2 Intake & Output 05/22/24 05/23/24 05/23/24 18:59 06:59 18:59 Intake Total 600 120 Output Total 1200 Balance -600 120 Weight 98.5 kg Intake: IV 60 20 Invasive Line 1 30 10 Invasive Line 2 10 Invasive Line 3 10 Invasive Line 4 10 10 Oral 540 100 Output: Urine 1200 Straight 1200 Other: Voiding Method Urinal Urinal Diaper Diaper # Voids 0 # Bowel Movements 0 - Exam GENERAL DESCRIPTION: An elderly male lying in bed in no distress RESPIRATORY SYSTEM: Unlabored breathing , decreased breath sounds at bases HEART: S1 S2 regular rate and rhythm , ABDOMEN: Soft , no tenderness EXTREMITIES: Left big toe amputation site wound base with no slough tissue surrounding swelling redness slightly decreased - Labs CBC & Chem 7: 05/23/24 06:33 05/23/24 06:33 Labs: Abnormal Lab Results - Last 24 Hours (Table) 05/22/24 05/22/24 05/23/24 Range/Units 13:25 17:02 11:42 POC Glucose (mg/dL) 138 H 116 H 131 H (70-110) mg/dL Microbiology - Last 24 Hours (Table) 05/21/24 17:27 Blood Culture - Preliminary Blood 05/21/24 23:00 Gram Stain - Preliminary Foot - Left Wound Culture - Preliminary Presumptive MRSA Assessment and Plan (1) Diabetic foot infection Current Visit: Yes Status: Acute Code(s): E11.628 - TYPE 2 DIABETES MELLITUS WITH OTHER SKIN COMPLICATIONS; L08.9 - LOCAL INFECTION OF THE SKIN AND SUBCUTANEOUS TISSUE, UNSP SNOMED Code(s): 181878597 (2) Diabetic foot ulcer Current Visit: Yes Status: Acute Code(s): E11.621 - TYPE 2 DIABETES MELLITUS WITH FOOT ULCER; L97.509 - NON-PRESSURE CHRONIC ULCER OTH PRT UNSP FOOT W UNSP SEVERITY SNOMED Code(s): 241838852 Plan: 1patient presented hospital with falls in this patient who recently did have amputation of the left first and second toe now with a nonhealing wound and concerning for underlying cellulitis diabetic foot infection and possible osteomyelitis. 2patient has been eval by vascular surgery complaining of further debridement we will continue current wound care with dry Aquacel silver dressing 3patient local culture currently growing presumptive MRSA sensitivities are pending patient did have a deep wound with a wound almost palpable we will check bone scan to rule out osteomyelitis as the patient would likely need IV antibiotics on discharge this has been discussed with the admitting team Dictation was produced using [employer] dictation software. please excuse any grammatical, word or spelling errors. Time with Patient: Less than 30
[2024-05-23] MEDS: metroNIDAZOLE 500 MG TAB PO SCH (16:06)
[2024-05-23] MEDS: TAMSULOSIN 0.4 MG CAP.ER.24H PO STA (16:06)
[2024-05-23 16:48] LABS: Glucose,Whole Blood 172 mg/dL (70-110)
[2024-05-23] MEDS: VANCOMYCIN 1,750 MG in SODIUM CHLORIDE 0.9% 500 ML 500 ML IVPB SCH (18:28)
[2024-05-23 20:17] LABS: Glucose,Whole Blood 196 mg/dL (70-110)
[2024-05-23] MEDS: INSULIN DETEMIR (LEVEMIR) 100 UNIT/ML SYR SQ SCH (21:24)
[2024-05-24 05:57] LABS: Glucose,Whole Blood 128 mg/dL (70-110)
[2024-05-24] MEDS: TAMSULOSIN 0.4 MG CAP.ER.24H PO SCH (07:33)
[2024-05-24 08:32] LABS: Basophils # (A) 0.1 k/uL (0-0.2); Basophils % (A) 1 %; Eosinophils # (A) 0.3 k/uL (0-0.7); Eosinophils % (A) 4 %; HCT 47.4 % (39.0-53.0); HGB 15.1 gm/dL (13.0-17.5); Lymphocytes # (A) 1.6 k/uL (1.0-4.8); Lymphocytes % (A) 18 %; MCH 29.4 pg (25.0-35.0); MCHC 31.8 g/dL (31.0-37.0); MCV 92.6 fL (80.0-100.0); Mean Platelet Volume 7.7; Monocytes # (A) 0.6 k/uL (0-1.0); Monocytes % (A) 7 %; Neutrophils # (A) 6.3 k/uL (1.3-7.7); Neutrophils % (A) 69 %; Platelet Count 320 k/uL (150-450); RBC 5.12 m/uL (4.30-5.90); RDW 13.5 % (11.5-15.5); WBC 9.1 k/uL (3.8-10.6)
[2024-05-24 09:15] LABS: African American GFR (CKD) >90 (>60 ml/min/1.73 sqM); Anion Gap 9 mmol/L; Blood Urea Nitrogen 13 mg/dL (9-20); Calcium 8.3 mg/dL (8.4-10.2); Carbon Dioxide 21 mmol/L (22-30); Chloride 108 mmol/L (98-107); Glucose 161 mg/dL (74-99); Non-African American GFR(CKD) >90 (>60 ml/min/1.73 sqM); Potassium 3.7 mmol/L (3.5-5.1); Sodium 138 mmol/L (137-145)
[2024-05-24 11:53] LABS: Glucose,Whole Blood 188 mg/dL (70-110)
--- NOTE | 2024-05-24 12:40 | NM ---
EXAMINATION TYPE: NM bone 3 phase DATE OF EXAM: 05/24/2024 COMPARISON: NONE CLINICAL INDICATION: Male, 68 years old with history of Left big toe ulcer/osteomyelitis; Triple phase bone scintigraphy was performed following the injection of 25.5 mCi Tc 99m MDP. Immedia te images and 4.5 hours post injection images acquired. FINDINGS: The three phase bone scan demonstrates increased blood flow distal remaining left foot firs t metatarsal. Angiographic blood pool images show focal uptake within the distal left foot first meta tarsal. With additional uptake increased throughout the left foot. Delayed images demonstrate corres ponding focal uptake within the distal left foot first metatarsal with additional uptake throughout t he left foot including in the region of the third proximal phalanx. Some focal uptake within the righ t midfoot. Right foot uptake is most consistent with degenerative arthritic changes. IMPRESSION: Findings suspicious for active osteomyelitis involving the left foot distal first metatarsal. [facility], , 05/24/2024 12:38 PM
--- NOTE | 2024-05-24 12:48 | P.PN ---
Subjective Progress Note Date: 05/24/24 History of Present Illness: The patient is a 68-year-old male with known history of peripheral vascular dis ease, chronic tobacco use, diabetes, hypertension and hyperlipidemia who has underwent amputation of toes by Dr. Grady recently because of infection and gangrene who presented with falls. The patient is somewhat vague with his history but he denies any chest discomfort or change in his breathing. He is not active physically. In the emergency room he had mild elevation of the troponin. He denies any cardiac history. In December he had an echocardiogram that was technically difficult and revealed an ejection fraction of 45 to 50%. He is in sinus mechanism. He has no documented history of myocardial infarction. He has not been followed by cardiology. He has no PND or orthopnea. His greatest factor is medical for the hypertension, hyperlipidemia, diabetes and chronic tobacco use. He has been seen in the emergency room recently with recurrent falls that has been chronic. There is no syncopal episode. Medications: Ozempic, insulin, Zestril 2.5 mg daily, Lipitor 20 mg daily EKG: Sinus mechanism with right bundle branch block and left anterior fascicular block, noted in the past 05/22 Patient is seen today in follow-up and remains in the emergency center. Patient rolled and fell out of bed this morning. No head injury. Patient denies having any chest pain, dizziness, palpitations no shortness of breath. He does complain of feeling thirsty. Patient has been afebrile, heart rate 103, blood pressure 137/74, pulse ox 98% on room air. Patient has been seen by infectious disease with recommendations for I&D of the foot wound. Dr. Grady is on consult as well. WBC 12, hemoglobin 14.9. CRP 8.4. Triglycerides 118, cholesterol 119, LDL 61, HDL 34. Sodium 139, potassium 3.6, BUN 17 creatinine 1.01. TSH 0.971. Telemetry is a sinus rhythm with right bundle branch block. Echocardiogram is pending. Dr. Grady is also on consult. Patient has been maintained on heparin drip. Yesterday, patient was started on beta-shirin, aspirin and lisinopril was increased. 05/23 Yesterday, lisinopril was increased to 5 mg twice daily for blood pressure control. Blood pressure remains elevated today despite the changes. Blood pressure 169/74, heart rate 95, pulse ox 97% on room air. CBC is unremarkable. Electrolytes and renal function within normal limits. Echocardiogram reviewed with the patient. Echocardiogram reveals EF 40%. 05/24 Patient denies any new complaints. Yesterday, lisinopril was increased and BP readings are improved today Physical Examination: 68-year-old male, alert, appears to be older than stated age Head: Normocephalic. Eyes: Sclerae nonicteric. Neck: Good carotid upstroke, no bruit, no jugular venous distention. Lungs: Clear to auscultation. Heart: Regular rate and rhythm, S1-S2, no S3, no rub. Systolic ejection murmur. Abdomen: Soft nontender, positive bowel sounds no organomegaly. Extremities: [No edema, dressing on the left foot with ulceration on the right great toe Impression: 1. Recurrent falls, etiology unclear 2. Mild troponin most likely present type II myocardial infarction related to the infection in the toe 3. Status post recent amputation of left toe with diabetic foot and nonhealing ulcer 4. History of diabetes 5. History of hyperlipidemia 6. History of smoking 7. Chronic tobacco use Plan: 1. Continue patient on aspirin 81 mg daily, atorvastatin 80 mg at bedtime, Lopressor 25 mg twice daily 2. Continue increased lisinopril 10 mg twice daily 3. Cardiology will sign off this case and follow on an as-needed basis. Please reconsult for any new concerns. Patient may follow-up in the office with Dr. Dean in one to 2 weeks. Nurse practitioner note has been reviewed, I agree with documented findings and plan of care. Patient was seen and examined. Objective - Vital Signs Vital signs: Vital Signs Temp 98.1 F 05/24/24 07:30 Pulse 96 05/24/24 07:30 Resp 18 05/24/24 07:30 BP 140/76 05/24/24 07:30 Pulse Ox 94 L 05/24/24 07:30 FiO2 Intake & Output 05/23/24 05/24/24 05/24/24 18:59 06:59 18:59 Intake Total 260 40 20 Balance 260 40 20 Weight 100.5 kg Intake: IV 40 40 20 Invasive Line 1 20 20 10 Invasive Line 4 20 20 10 Oral 220 Other: Voiding Method Urinal Toilet Toilet Diaper # Voids 1 1 # Bowel Movements 1 - Labs CBC & Chem 7: 05/24/24 07:59 05/24/24 07:59 Labs: Abnormal Lab Results - Last 24 Hours (Table) 05/23/24 05/23/24 05/23/24 Range/Units 11:42 16:47 20:16 POC Glucose (mg/dL) 131 H 172 H 196 H (70-110) mg/dL 05/24/24 Range/Units 05:56 POC Glucose (mg/dL) 128 H (70-110) mg/dL Microbiology - Last 24 Hours (Table) 05/21/24 17:27 Blood Culture - Preliminary Blood 05/21/24 23:00 Anaerobic Culture - Preliminary Foot - Left 05/21/24 23:00 Gram Stain - Final Foot - Left Wound Culture - Final Methicillin resist S. aureus
--- NOTE | 2024-05-24 13:03 | P.PN ---
Subjective Progress Note Date: 05/24/24 History of present illness; Patient is a 68 year old male with HTN, Hyperlipidemia, DM2, Left first and se cond digit toe amputation who presents with his son/caregiver who gave the history. The son states he fell and hit his head in the shower prompting him to call EMS. The son states he has been experiencing "a number of falls" since 05/17/24, and he was brought in via EMS on 05/18/24 due to falling and urinary incontinence, and discharged on 05/18/24. The son states he had to "carry him around" after discharge on 05/18/24, as he was unable to walk without falling. The patient states he has only fallen "twice in the past week", and believes his balance issues are due to his amputations. He states he has amputation bandages replaced every 2 days since procedure completed by Dr. Grady. He states his foot is wrapped with bag and bandages to keep it dry while he showers, and is having no current pain from the site. The patient states he is having some nausea and vomiting, but denies loss of consciousness, diarrhea, constipation, fever, urinary changes, headache, chest pain, shortness of breath, or appetite changes. He has no other complaints at this time. -Initial lab work done in the ER showed WBC 13.8, hemoglobin 15.5, platelet 274, sodium 137, potassium 4.2, chloride 101, bicarb 24, BUN 22, creatinine 1.03, glucose 186, troponin 0.143, and repeated 0.99. -EKG done in the ER showed heart rate of 100 , no ST segment elevation or depression seen, no T-wave inversions seen, possible RBBB noted. -CT head done showed no acute intracranial process -Foot x-ray shows cortical erosions medial distal left first metatarsal, possible osteomyelitis Progress note 05/22/2024 patient seen and examined at bedside. Patient with no acute events overnight. This morning after speaking with patient nurse noted to have found patient had fallen, unwitnessed. Subsequently CT scan was ordered. Upon speaking with patient he did not recall event, and stated he was feeling well and had no other complaints. Progress note 05/23/2024 patient seen and examined at bedside. Patient with no urine output, bladder scan completed with shown 1000 cc of retention and straight cath per protocol. Patient doing well today, no complaints of pain. Progress note 05/24/2024 patient seen and examined at bedside. No overnight events. Patient doing well today, no complaints of pain. He was awaiting bone scan. No other complaints of weakness, dizziness, or headache. PHYSICAL EXAMINATION: GENERAL: Obese habitus. Poor memory. The patient is alert and oriented x3, not in any acute distress. Well developed, well nourished. HEENT: Normocephalic, atraumatic. No pharyngeal erythema. CARDIOVASCULAR: S1 and S2 present. No murmurs, rubs, or gallops. PULMONARY: Chest is clear to auscultation, no wheezing or crackles. ABDOMEN: Soft, nontender, nondistended, normoactive bowel sounds. No palpable o rganomegaly. MUSCULOSKELETAL: No joint swelling or deformity. EXTREMITIES: No pedal edema. Left foot Get so much to get up twice you know with amputation of first and second digit, distinct odor, wet bandage, open wound. NEUROLOGICAL: Gross neurological examination did not reveal any focal deficits. SKIN: No rashes. Data reviewed today 05/24/2024: WBC 9.1, hemoglobin 15.1, sodium 138 potassium 3.7, chloride 108, bicarb 21, anion gap 9, glucose 161, calcium 8.3 #Syncope, Multiple falls, multifactorial secondary to orthostatic hypotension, peripheral neuropathy from diabetes, autonomic dysfunction from diabetes #Orthostatic Hypotension, component of hypovolemia superimposed on likely autonomic dysfunction from diabetes, resolved - Orthostatics improved with normal saline Fall precautions PT/OT following Brain CT, no acute findings - monitor on telemetry for arrhythmia - Case discussed with patient's PCP, Dr. Garcia, will likely be coming in today for further discussion and evaluation of his capacity to make decisions - Discontinue IV NS, patient able to tolerate oral intake - PT suggests subacute rehab on discharge due to unstable gait #Osteomyelitis #Diabetic Foot Ulcer with superimposed infection #Leukocytosis, resolved Foot x-ray shows cortical erosions medial distal left first metatarsal Initial CRP 8.4 and ESR 41 Initial WBC 13.8 => 12.0 => 10.0 Continue Unasyn 3g q6h and vancomycin per pharmacy, follow vanc trough for toxicity, monitor for renal toxicity with daily BMP - Blood cultures pending, wound culture with presumptive MRSA Wound care following Vascular surgery following ID following, recommending further assessment by vascular surgery for possible debridement, pending bone scan Patient may need PICC line for continuation of IV medication at discharge #Elevated Troponins, representing Type II NSTEMI #RBBB #HTN #Systolic cardiomyopathy Initial troponin 0.143, and repeated 0.99. Daily ASA 81 mg, atorvastatin 80mg HS, metoprolol 25mg BID TSH WNL, cholesterol WNL HDL 34.4 - Echocardiogram with impaired LV function, EF at 40% - Continue cardiac monitoring Cardiology note reviewed, increase lisinopril to 10 twice daily -May need ischemic evaluation in the future # Uncontrolled, Diabetes Mellitus 2 Begin Accu-Cheks and sliding scale insulin, monitor for hypoglycemia -Takes 30U long acting at home, placed him on 17U levemir BID initially, continue 17 units at bedtime - A1c 8.0 #Urinary retention likely secondary to neurogenic bladder Bladder scan completed 1000 cc retention Not requiring Del Angel catheter at the moment Begin Flomax 0.4 mg daily Non-anion gap metabolic acidosis -Likely in the setting of normal saline, now discontinued -Repeat BMP tomorrow Chronic Medical Conditions #Hyperlipidemia Statin as above F: P.O. E: Replete as needed N: Heart healthy diet E: PT/OT DVT ppx: Subcu Lovenox Code status: Full code Anticipated discharge place: Pending clinical course Anticipated discharge time: Pending clinical course I have seen and evaluated the patient today. Discussed with the resident and agree with the residents finding and plan as documented in the resident's note. Changes highlighted in blue font. Objective - Vital Signs Vital signs: Vital Signs Temp 98.1 F 05/24/24 07:30 Pulse 96 05/24/24 07:30 Resp 18 05/24/24 07:30 BP 140/76 05/24/24 07:30 Pulse Ox 94 L 05/24/24 07:30 FiO2 Intake & Output 05/23/24 05/24/24 05/24/24 18:59 06:59 18:59 Intake Total 260 40 242 Balance 260 40 242 Weight 100.5 kg Intake: IV 40 40 20 Invasive Line 1 20 20 10 Invasive Line 4 20 20 10 Oral 220 222 Other: Voiding Method Urinal Toilet Toilet Diaper # Voids 1 1 1 # Bowel Movements 1 1 - Labs CBC & Chem 7: 05/24/24 07:59 05/24/24 07:59 Labs: Abnormal Lab Results - Last 24 Hours (Table) 05/23/24 05/23/24 05/24/24 Range/Units 16:47 20:16 05:56 Chloride (98-107) mmol/L Carbon Dioxide (22-30) mmol/L Glucose (74-99) mg/dL POC Glucose (mg/dL) 172 H 196 H 128 H (70-110) mg/dL Calcium (8.4-10.2) mg/dL 05/24/24 05/24/24 Range/Units 07:59 11:49 Chloride 108 H (98-107) mmol/L Carbon Dioxide 21 L (22-30) mmol/L Glucose 161 H (74-99) mg/dL POC Glucose (mg/dL) 188 H (70-110) mg/dL Calcium 8.3 L (8.4-10.2) mg/dL Microbiology - Last 24 Hours (Table) 05/21/24 17:27 Blood Culture - Preliminary Blood 05/21/24 23:00 Anaerobic Culture - Preliminary Foot - Left 05/21/24 23:00 Gram Stain - Final Foot - Left Wound Culture - Final Methicillin resist S. aureus
--- NOTE | 2024-05-24 15:10 | P.PN ---
Subjective Progress Note Date: 05/24/24 Principal diagnosis: Reason for follow-up is left diabetic foot ulcer and infection Patient is a 68-year-old male with a past medical history pertinent for hypertension hyperlipidemia type 2 diabetes mellitus in this patient who recently did have left first and second toe amputation done by Dr. Grady, now presented to this facility after apparently the patient had a fall at home weakness and did have a nonhealing wound to the left foot with some drainage concerning for diabetic foot infection possible osteo. On today's evaluation that is 05/24/2024, Patient is afebrile patient is currently on room air and denies having any shortness of breath, the patient den ies any chest pain or cough, the patient denies any nausea vomiting did not have any abdominal pain and no diarrhea patient has been to the left foot wound area. Patient white count is 9.1, creatinine 0.79 anaerobe culture and blood culture has been negative so far, both scan has been suspicious for left foot distal first metatarsal osteomyelitis Objective - Vital Signs Vital signs: Vital Signs Temp 98.1 F 05/24/24 07:30 Pulse 96 05/24/24 07:30 Resp 18 05/24/24 07:30 BP 140/76 05/24/24 07:30 Pulse Ox 94 L 05/24/24 07:30 FiO2 Intake & Output 05/23/24 05/24/24 05/24/24 18:59 06:59 18:59 Intake Total 260 40 242 Balance 260 40 242 Weight 100.5 kg Intake: IV 40 40 20 Invasive Line 1 20 20 10 Invasive Line 4 20 20 10 Oral 220 222 Other: Voiding Method Urinal Toilet Toilet Diaper # Voids 1 1 1 # Bowel Movements 1 1 - Exam GENERAL DESCRIPTION: An elderly male lying in bed in no distress RESPIRATORY SYSTEM: Unlabored breathing , decreased breath sounds at bases HEART: S1 S2 regular rate and rhythm , ABDOMEN: Soft , no tenderness EXTREMITIES: Left big toe amputation site wound base with no slough tissue surrounding swelling redness slightly decreased - Labs CBC & Chem 7: 05/24/24 07:59 05/24/24 07:59 Labs: Abnormal Lab Results - Last 24 Hours (Table) 05/23/24 05/23/24 05/24/24 Range/Units 16:47 20:16 05:56 Chloride (98-107) mmol/L Carbon Dioxide (22-30) mmol/L Glucose (74-99) mg/dL POC Glucose (mg/dL) 172 H 196 H 128 H (70-110) mg/dL Calcium (8.4-10.2) mg/dL 05/24/24 05/24/24 Range/Units 07:59 11:49 Chloride 108 H (98-107) mmol/L Carbon Dioxide 21 L (22-30) mmol/L Glucose 161 H (74-99) mg/dL POC Glucose (mg/dL) 188 H (70-110) mg/dL Calcium 8.3 L (8.4-10.2) mg/dL Microbiology - Last 24 Hours (Table) 05/21/24 17:27 Blood Culture - Preliminary Blood 05/21/24 23:00 Anaerobic Culture - Preliminary Foot - Left 05/21/24 23:00 Gram Stain - Final Foot - Left Wound Culture - Final Methicillin resist S. aureus Assessment and Plan (1) Diabetic foot infection Current Visit: Yes Status: Acute Code(s): E11.628 - TYPE 2 DIABETES MELLITUS WITH OTHER SKIN COMPLICATIONS; L08.9 - LOCAL INFECTION OF THE SKIN AND SUBCUTANEOUS TISSUE, UNSP SNOMED Code(s): 757058106 (2) Diabetic foot ulcer Current Visit: Yes Status: Acute Code(s): E11.621 - TYPE 2 DIABETES MELLITUS WITH FOOT ULCER; L97.509 - NON-PRESSURE CHRONIC ULCER OTH PRT UNSP FOOT W UNSP SEVERITY SNOMED Code(s): 134902903 (3) Osteomyelitis of left foot Current Visit: Yes Status: Acute Code(s): M86.9 - OSTEOMYELITIS, UNSPECIFIED SNOMED Code(s): 8965795245797888 Plan: 1patient presented hospital with falls in this patient who recently did have amputation of the left first and second toe now with a nonhealing wound and concerning for underlying cellulitis diabetic foot infection and possible osteomyelitis. 2patient has been eval by vascular surgery complaining of further debridement we will continue current wound care with dry Aquacel silver dressing 3patient local culture currently growing MRSA anaerobe cultures are currently pending bone scan has been suggestive of osteomyelitis at the site of this ulcer 4we will order PICC line for outpatient IV antibiotic therapy continue with vancomycin and Flagyl Dictation was produced using [employer] dictation software. please excuse any grammatical, word or spelling errors. Time with Patient: Less than 30
[2024-05-24 16:46] LABS: Glucose,Whole Blood 206 mg/dL (70-110)
[2024-05-24] MEDS: VANCOMYCIN TROUGH DUE 1 EACH MISC MISCELLANE ONE (17:10)
[2024-05-24 20:05] LABS: Glucose,Whole Blood 237 mg/dL (70-110)
[2024-05-24] MEDS: VANCOMYCIN 1,500 MG in SODIUM CHLORIDE 0.9% 500 ML 500 ML IVPB SCH (21:39)
--- NOTE | 2024-05-24 22:10 | PN ---
PROGRESS NOTE This is a 68-year-old gentleman with history of diabetes. The patient had a ray amputation of the left big toe in the past. The patient stopped coming to the wound clinic. The patient came with a history of fall at home. The patient has a left big toe stump and we have been treating with IV antibiotic, local wound care. The patient will have a PICC line and we will continue with local wound care using Aquacel silver which should be changed every 48 hours. Follow with you. SHORTY / IJN: [id number] /
[2024-05-25 06:49] LABS: Basophils # (A) 0.1 k/uL (0-0.2); Basophils % (A) 0 %; Eosinophils # (A) 0.2 k/uL (0-0.7); Eosinophils % (A) 2 %; HCT 45.1 % (39.0-53.0); HGB 15.1 gm/dL (13.0-17.5); Lymphocytes # (A) 1.2 k/uL (1.0-4.8); Lymphocytes % (A) 9 %; MCH 30.1 pg (25.0-35.0); MCHC 33.5 g/dL (31.0-37.0); MCV 89.7 fL (80.0-100.0); Mean Platelet Volume 8.7; Monocytes # (A) 1.1 k/uL (0-1.0); Monocytes % (A) 8 %; Neutrophils # (A) 10.2 k/uL (1.3-7.7); Neutrophils % (A) 79 %; Platelet Count 278 k/uL (150-450); RBC 5.03 m/uL (4.30-5.90); RDW 13.7 % (11.5-15.5)
[2024-05-25 07:27] LABS: Glucose,Whole Blood 158 mg/dL (70-110)
[2024-05-25 07:33] LABS: African American GFR (CKD) >90 (>60 ml/min/1.73 sqM); Anion Gap 7 mmol/L; Blood Urea Nitrogen 14 mg/dL (9-20); Calcium 8.7 mg/dL (8.4-10.2); Carbon Dioxide 27 mmol/L (22-30); Chloride 108 mmol/L (98-107); Glucose 157 mg/dL (74-99); Non-African American GFR(CKD) 83 (>60 ml/min/1.73 sqM); Potassium 3.6 mmol/L (3.5-5.1); Sodium 142 mmol/L (137-145)
[2024-05-25] MEDS: ALPRAZolam 1 MG TAB PO SCH (08:45)
[2024-05-25 12:14] LABS: Glucose,Whole Blood 143 mg/dL (70-110)
--- NOTE | 2024-05-25 12:19 | P.PN ---
Subjective Progress Note Date: 05/25/24 History of present illness; Patient is a 68 year old male with HTN, Hyperlipidemia, DM2, Left first and se cond digit toe amputation who presents with his son/caregiver who gave the history. The son states he fell and hit his head in the shower prompting him to call EMS. The son states he has been experiencing "a number of falls" since 05/17/24, and he was brought in via EMS on 05/18/24 due to falling and urinary incontinence, and discharged on 05/18/24. The son states he had to "carry him around" after discharge on 05/18/24, as he was unable to walk without falling. The patient states he has only fallen "twice in the past week", and believes his balance issues are due to his amputations. He states he has amputation bandages replaced every 2 days since procedure completed by Dr. Grady. He states his foot is wrapped with bag and bandages to keep it dry while he showers, and is having no current pain from the site. The patient states he is having some nausea and vomiting, but denies loss of consciousness, diarrhea, constipation, fever, urinary changes, headache, chest pain, shortness of breath, or appetite changes. He has no other complaints at this time. -Initial lab work done in the ER showed WBC 13.8, hemoglobin 15.5, platelet 274, sodium 137, potassium 4.2, chloride 101, bicarb 24, BUN 22, creatinine 1.03, glucose 186, troponin 0.143, and repeated 0.99. -EKG done in the ER showed heart rate of 100 , no ST segment elevation or depression seen, no T-wave inversions seen, possible RBBB noted. -CT head done showed no acute intracranial process -Foot x-ray shows cortical erosions medial distal left first metatarsal, possible osteomyelitis Progress note 05/22/2024 patient seen and examined at bedside. Patient with no acute events overnight. This morning after speaking with patient nurse noted to have found patient had fallen, unwitnessed. Subsequently CT scan was ordered. Upon speaking with patient he did not recall event, and stated he was feeling well and had no other complaints. Progress note 05/23/2024 patient seen and examined at bedside. Patient with no urine output, bladder scan completed with shown 1000 cc of retention and straight cath per protocol. Patient doing well today, no complaints of pain. Progress note 05/24/2024 patient seen and examined at bedside. No overnight events. Patient doing well today, no complaints of pain. He was awaiting bone scan. No other complaints of weakness, dizziness, or headache. Progress note 05/25/2024 patient seen and examined at bedside. Overnight patient became increasingly confused and defecated and proceeded to smear feces on himself and did not want assistance with cleaning himself. He seemingly is more coherent and oriented during the day however his orientation and memory decline through the day. This morning, patient was awake and standing with 1 hand on walker, and stated he had incident of urinary incontinence. He has no other complaints at this time. PHYSICAL EXAMINATION: GENERAL: Obese habitus. Poor memory. The patient is alert and oriented x3, not in any acute distress. Well developed, well nourished. HEENT: Normocephalic, atraumatic. No pharyngeal erythema. CARDIOVASCULAR: S1 and S2 present. No murmurs, rubs, or gallops. PULMONARY: Chest is clear to auscultation, no wheezing or crackles. ABDOMEN: Soft, nontender, nondistended, normoactive bowel sounds. No palpable organomegaly. MUSCULOSKELETAL: No joint swelling or deformity. EXTREMITIES: No pedal edema. Left foot Get so much to get up twice you know with amputation of first and second digit, distinct odor, wet bandage, open wound. NEUROLOGICAL: Gross neurological examination did not reveal any focal deficits. SKIN: No rashes. Data reviewed today 05/25/2024: WBC 13.0, hemoglobin 15.1, platelets 278, sodium 142, potassium 3.6, chloride 108, bicarb 27, BUN 14, creatinine 0.94, glucose 157 Imaging: Bone scan left foot with findings suspicious for osteomyelitis involving the left distal first metatarsal #Syncope, Multiple falls, multifactorial secondary to orthostatic hypotension, peripheral neuropathy from diabetes, autonomic dysfunction from diabetes #Orthostatic Hypotension, component of hypovolemia superimposed on likely autonomic dysfunction from diabetes, resolved - Orthostatics improved with normal saline Fall precautions PT/OT following Brain CT, no acute findings - monitor on telemetry for arrhythmia - Case discussed with patient's PCP, Dr. Garcia yesterday, will further discuss and evaluate his capacity to make decisions on monday - Discontinued IV NS, patient able to tolerate oral intake - PT suggests subacute rehab on discharge due to unstable gait #Osteomyelitis #Diabetic Foot Ulcer with superimposed infection #Leukocytosis Foot x-ray shows cortical erosions medial distal left first metatarsal Initial CRP 8.4 and ESR 41 Initial WBC 13.8 => 12.0 => 10.0 Continue Unasyn 3g q6h and vancomycin per pharmacy, follow vanc trough for toxicity, monitor for renal toxicity with daily BMP - Blood cultures pending, wound culture with presumptive MRSA Wound care following ID following, recommending further assessment by vascular surgery for possible debridement Bone scan - Findings suspicious for active osteomyelitis involving the left foot distal first metatarsal - Vascular surgery following, will plan to see patient in outpatient setting Patient may need PICC line for continuation of IV medication at discharge #Acute Encephalopathy, Likely multifactorial, metabolic vs Hx of CVA vs new Alzheimer's dementia Displaying signs of sundowning Will decrease Xanax to 1 mg every 12 hours Continue to monitor #Elevated Troponins, representing Type II NSTEMI #RBBB #HTN #Systolic cardiomyopathy Initial troponin 0.143, and repeated 0.99. Daily ASA 81 mg, atorvastatin 80mg HS, metoprolol 25mg BID TSH WNL, cholesterol WNL HDL 34.4 - Echocardiogram with impaired LV function, EF at 40% Cardiology following, increase lisinopril to 10 twice daily -May need ischemic evaluation in the future # Uncontrolled, Diabetes Mellitus 2 Begin Accu-Cheks and sliding scale insulin, monitor for hypoglycemia -Takes 30U long acting at home, placed him on 17U levemir BID initially, continue 17 units at bedtime - A1c 8.0 #Urinary retention likely secondary to neurogenic bladder Bladder scan completed 1000 cc retention Not requiring Del Angel catheter at the moment Begin Flomax 0.4 mg daily Non-anion gap metabolic acidosis, resolved Chronic Medical Conditions #Hyperlipidemia Statin as above F: P.O. E: Replete as needed N: Heart healthy diet E: PT/OT DVT ppx: Subcu Lovenox Code status: Full code Anticipated discharge place: Pending clinical course Anticipated discharge time: Pending clinical course I have seen and evaluated the patient today. Discussed with the resident and agree with the residents finding and plan as documented in the resident's note. Changes highlighted in blue font. Objective - Vital Signs Vital signs: Vital Signs Temp 98.8 F 05/25/24 07:27 Pulse 94 05/25/24 08:40 Resp 16 05/25/24 08:40 BP 163/90 05/25/24 07:27 Pulse Ox 96 05/25/24 07:27 FiO2 Intake & Output 05/24/24 05/25/24 05/25/24 18:59 06:59 18:59 Intake Total 484 1630 Balance 484 1630 Intake: IV 40 10 Invasive Line 1 20 Invasive Line 4 20 10 Oral 444 1620 Other: Voiding Method Toilet Toilet Toilet # Voids 1 # Bowel Movements 1 - Labs CBC & Chem 7: 05/25/24 05:31 05/25/24 05:31 Labs: Abnormal Lab Results - Last 24 Hours (Table) 05/24/24 05/24/24 05/24/24 Range/Units 11:49 16:44 20:04 WBC (3.8-10.6) k/uL Neutrophils # (1.3-7.7) k/uL Monocytes # (0-1.0) k/uL Chloride (98-107) mmol/L Glucose (74-99) mg/dL POC Glucose (mg/dL) 188 H 206 H 237 H (70-110) mg/dL 05/25/24 05/25/24 05/25/24 Range/Units 05:31 05:31 07:26 WBC 13.0 H (3.8-10.6) k/uL Neutrophils # 10.2 H (1.3-7.7) k/uL Monocytes # 1.1 H (0-1.0) k/uL Chloride 108 H (98-107) mmol/L Glucose 157 H (74-99) mg/dL POC Glucose (mg/dL) 158 H (70-110) mg/dL Microbiology - Last 24 Hours (Table) 05/21/24 17:27 Blood Culture - Preliminary Blood 05/21/24 23:00 Anaerobic Culture - Final Foot - Left Guerdaia merlea
[2024-05-25 17:12] LABS: Glucose,Whole Blood 258 mg/dL (70-110)
[2024-05-25 20:18] LABS: Glucose,Whole Blood 208 mg/dL (70-110)
[2024-05-26] MEDS: VANCOMYCIN TROUGH DUE 1 EACH MISC MISCELLANE ONE (06:35)
[2024-05-26 07:27] LABS: Glucose,Whole Blood 119 mg/dL (70-110)
[2024-05-26 09:10] LABS: Basophils # (A) 0.05 X 10*3/uL (0.00-0.10); Basophils % (A) 0.4 %; Eosinophils % (A) 1.7 %; HCT 41.9 % (39.6-50.0); HGB 14.1 g/dL (13.0-17.0); Lymphocytes # (A) 1.82 X 10*3/uL (0.90-5.00); Lymphocytes % (A) 15.8 %; MCH 29.7 pg (27.0-32.0); MCHC 33.7 g/dL (32.0-37.0); MCV 88.2 FL (80.0-97.0); Mean Platelet Volume 10.7 FL (9.5-12.2); Monocytes # (A) 1.02 X 10*3/uL (0.20-1.00); Monocytes % (A) 8.8 %; NRBC Per 100 WBC 0 X 10*3/uL (0.00-0.01); Neutrophils % (A) 72.9 %; Platelet Count 282 X 10*3/uL (140-440); RBC 4.75 X 10*6/uL (4.40-5.60); RDW 13.2 % (11.5-14.5); WBC 11.54 X 10*3/uL (4.50-10.00)
[2024-05-26 09:34] LABS: Blood Urea Nitrogen 8.7 mg/dL (9.0-27.0); Calcium 8.3 mg/dL (8.7-10.3); Carbon Dioxide 26.1 mmol/L (21.6-31.8); Chloride 106 mmol/L (96-109); Glucose 130 mg/dL (70-110); Potassium 3.7 mmol/L (3.5-5.5); Sodium 142 mmol/L (135-145)
--- NOTE | 2024-05-26 10:40 | P.PN ---
Progress Note - Text 68-year-old gentleman with history of diabetes hypertension patient had a amputation of the left foot big toe and second toe in the past patient has been coming to the wound clinic at [facility] coming to the wound clinic for follow-up patient has history of fall at home patient has a stump of the big toe we have been treating with local wound care and IV antibiotic under care of infectious disease today we have changed the dressing the base of the wound is granulating continue with extra silver patient is going for PICC line for long- term antibiotic patient discharged will follow-up with the wound clinic at [facility] dressing should be changed every 48 hours with extra silver
[2024-05-26 12:14] LABS: Glucose,Whole Blood 153 mg/dL (70-110)
--- NOTE | 2024-05-26 12:51 | P.PN ---
Subjective Progress Note Date: 05/26/24 Subjective: Patient seen and examined at bedside. No acute events overnight. Pertinent positives and negatives as discussed above, a complete review of systems was performed and all other systems are negative. Vitals Signs Reviewed. General: Nontoxic, no distress, appears at stated age, morbidly obese Derm: Warm, dry, left foot dressing clean, dry, intact Head: Atraumatic, normocephalic, symmetric Eyes: EOMI, no lid lag, anicteric sclera Mouth: No lip lesion, mucus membranes moist Cardiovascular: S1S2 reg, no murmur Lungs: CTA bilateral, no rhonchi, no rales, no accessory muscle use Abdominal: Soft, nontender to palpation, no guarding, no appreciable organomegaly Ext: No gross muscle atrophy, no edema, no contractures Neuro: CN II-XI grossly intact, no focal neuro deficits Psych: Alert, oriented, appropriate affect Data Reviewed Today: Pertinent Labs: WBC 11.54, creatinine 1.0, blood sugars range between 1 19-2 08 Imaging: No new imaging Assessment and Plan: # Left foot osteomyelitis # Left foot diabetic Foot Ulcer with superimposed infection #Leukocytosis Vascular surgery recommending no further surgical debridement, recommending outpatient wound care clinic follow-up -ID following -Patient will likely need IV antibiotics at time of discharge. -Continue IV vancomycin, monitor for renal toxicity, also on oral Flagyl 500 3 times daily #Syncope, Multiple falls, multifactorial secondary to orthostatic hypotension, peripheral neuropathy from diabetes, autonomic dysfunction from diabetes, resolved #Orthostatic Hypotension, component of hypovolemia superimposed on likely autonomic dysfunction from diabetes, resolved - Orthostatics improved with normal saline Fall precautions - monitor on telemetry for arrhythmia - Case was discussed with patient's PCP, Dr. Garcia yesterday, will further discuss and evaluate his capacity to make decisions on monday - PT suggests subacute rehab on discharge due to unstable gait #Acute Encephalopathy, Likely multifactorial, metabolic vs Hx of CVA vs new Alzheimer's dementia, now resolved Displaying signs of Will decrease Xanax to 1 mg every 12 hours Continue to monitor #Elevated Troponins, representing Type II NSTEMI #RBBB #HTN #Systolic cardiomyopathy Initial troponin 0.143, and repeated 0.99. Daily ASA 81 mg, atorvastatin 80mg HS, metoprolol 25mg BID TSH WNL, cholesterol WNL HDL 34.4 - Echocardiogram with impaired LV function, EF at 40% Cardiology following, increase lisinopril to 10 twice daily -May need ischemic evaluation in the future # Uncontrolled, Diabetes Mellitus 2 Begin Accu-Cheks and sliding scale insulin, monitor for hypoglycemia -Takes 30U long acting at home, placed him on 17U levemir BID initially, continue 17 units at bedtime - A1c 8.0 #Urinary retention likely secondary to neurogenic bladder Bladder scan completed 1000 cc retention Not requiring Del Angel catheter at the moment Begin Flomax 0.4 mg daily Non-anion gap metabolic acidosis, resolved Chronic Medical Conditions #Hyperlipidemia Statin as above F: P.O. E: Replete as needed N: Heart healthy diet E: PT/OT DVT ppx: Subcu Lovenox Code status: Full code Anticipated discharge place: Pending clinical course Anticipated discharge time: Pending clinical course Objective - Vital Signs Vital signs: Vital Signs Temp 99 F 05/26/24 12:11 Pulse 85 05/26/24 12:11 Resp 16 05/26/24 12:11 BP 163/80 05/26/24 12:11 Pulse Ox 96 05/26/24 12:11 FiO2 Intake & Output 05/25/24 05/26/24 05/26/24 18:59 06:59 18:59 Intake Total 780 540 Output Total 0 Balance 780 540 Intake: Oral 780 540 Output: Urine 0 Other: Voiding Method Toilet Toilet Toilet # Voids 1 # Bowel Movements 1 - Labs CBC & Chem 7: 05/26/24 05:46 05/26/24 05:46 Labs: Abnormal Lab Results - Last 24 Hours (Table) 05/25/24 05/25/24 05/26/24 Range/Units 17:11 20:16 05:46 WBC 11.54 H (4.50-10.00) X 10*3/uL Immature Gran # 0.05 H (0.00-0.04) X 10*3/uL Neutrophils # 8.40 H (1.80-7.70) X 10*3/uL Monocytes # 1.02 H (0.20-1.00) X 10*3/uL BUN (9.0-27.0) mg/dL BUN/Creatinine Ratio (12.00-20.00) Ratio Glucose (70-110) mg/dL POC Glucose (mg/dL) 258 H 208 H (70-110) mg/dL Calcium (8.7-10.3) mg/dL 05/26/24 05/26/24 05/26/24 Range/Units 05:46 07:26 12:12 WBC (4.50-10.00) X 10*3/uL Immature Gran # (0.00-0.04) X 10*3/uL Neutrophils # (1.80-7.70) X 10*3/uL Monocytes # (0.20-1.00) X 10*3/uL BUN 8.7 L (9.0-27.0) mg/dL BUN/Creatinine Ratio 8.70 L (12.00-20.00) Ratio Glucose 130 H (70-110) mg/dL POC Glucose (mg/dL) 119 H 153 H (70-110) mg/dL Calcium 8.3 L (8.7-10.3) mg/dL
--- NOTE | 2024-05-26 14:28 | P.PN ---
Subjective Progress Note Date: 05/25/24 Principal diagnosis: Reason for follow-up is left diabetic foot ulcer and infection Patient is a 68-year-old male with a past medical history pertinent for hypertension hyperlipidemia type 2 diabetes mellitus in this patient who recently did have left first and second toe amputation done by Dr. Grady, now presented to this facility after apparently the patient had a fall at home weakness and did have a nonhealing wound to the left foot with some drainage concerning for diabetic foot infection possible osteo. On today's evaluation that is 05/25/2024, patient has been afebrile, patient is breathing comfortably and is currently on room air, patient denies having any significant cough no chest pain shortness of breath, patient denies nausea vomiting or diarrhea and no abdominal pain denies pain to the left foot wound area. Patient white count is 13,000, creatinine 0.94 Objective - Vital Signs Vital signs: Vital Signs Temp 97.5 F L 05/25/24 13:29 Pulse 87 05/25/24 13:29 Resp 20 05/25/24 13:29 BP 166/91 05/25/24 13:29 Pulse Ox 97 05/25/24 13:29 FiO2 Intake & Output 05/24/24 05/25/24 05/25/24 18:59 06:59 18:59 Intake Total 484 1630 Balance 484 1630 Intake: IV 40 10 Invasive Line 1 20 Invasive Line 4 20 10 Oral 444 1620 Other: Voiding Method Toilet Toilet Toilet # Voids 1 1 # Bowel Movements 1 1 - Exam GENERAL DESCRIPTION: An elderly male lying in bed in no distress RESPIRATORY SYSTEM: Unlabored breathing , decreased breath sounds at bases HEART: S1 S2 regular rate and rhythm , ABDOMEN: Soft , no tenderness EXTREMITIES: Left big toe amputation site wound base with no slough tissue surrounding swelling redness slightly decreased - Labs CBC & Chem 7: 05/26/24 05:46 05/26/24 05:46 Labs: Abnormal Lab Results - Last 24 Hours (Table) 05/24/24 05/25/24 05/25/24 Range/Units 20:04 05:31 05:31 WBC 13.0 H (3.8-10.6) k/uL Neutrophils # 10.2 H (1.3-7.7) k/uL Monocytes # 1.1 H (0-1.0) k/uL Chloride 108 H (98-107) mmol/L Glucose 157 H (74-99) mg/dL POC Glucose (mg/dL) 237 H (70-110) mg/dL 05/25/24 05/25/24 05/25/24 Range/Units 07:26 12:13 17:11 WBC (3.8-10.6) k/uL Neutrophils # (1.3-7.7) k/uL Monocytes # (0-1.0) k/uL Chloride (98-107) mmol/L Glucose (74-99) mg/dL POC Glucose (mg/dL) 158 H 143 H 258 H (70-110) mg/dL Microbiology - Last 24 Hours (Table) 05/21/24 17:27 Blood Culture - Preliminary Blood 05/21/24 23:00 Anaerobic Culture - Final Foot - Left Robina stahl Assessment and Plan (1) Diabetic foot infection Current Visit: Yes Status: Acute Code(s): E11.628 - TYPE 2 DIABETES MELLITUS WITH OTHER SKIN COMPLICATIONS; L08.9 - LOCAL INFECTION OF THE SKIN AND SUBCUTANEOUS TISSUE, UNSP SNOMED Code(s): 235365556 (2) Diabetic foot ulcer Current Visit: Yes Status: Acute Code(s): E11.621 - TYPE 2 DIABETES MELLITUS WITH FOOT ULCER; L97.509 - NON-PRESSURE CHRONIC ULCER OTH PRT UNSP FOOT W UNSP SEVERITY SNOMED Code(s): 301198246 (3) Osteomyelitis of left foot Current Visit: Yes Status: Acute Code(s): M86.9 - OSTEOMYELITIS, UNSPECIFIED SNOMED Code(s): 1049485059264381 Plan: 1patient presented hospital with falls in this patient who recently did have amputation of the left first and second toe now with a nonhealing wound and concerning for underlying cellulitis diabetic foot infection and possible osteomyelitis. 2patient has been eval by vascular surgery complaining of further debridement we will continue current wound care with dry Aquacel silver dressing 3patient local culture currently growing MRSA anaerobe cultures are currently pending bone scan has been suggestive of osteomyelitis at the site of this ulcer 4patient to continue with vancomycin and Flagyl, currently waiting for PICC line placement Dictation was produced using [employer] dictation software. please excuse any grammatical, word or spelling errors. Time with Patient: Less than 30
--- NOTE | 2024-05-26 14:29 | P.PN ---
Subjective Progress Note Date: 05/26/24 Principal diagnosis: Reason for follow-up is left diabetic foot ulcer and infection Patient is a 68-year-old male with a past medical history pertinent for hypertension hyperlipidemia type 2 diabetes mellitus in this patient who recently did have left first and second toe amputation done by Dr. Grady, now presented to this facility after apparently the patient had a fall at home weakness and did have a nonhealing wound to the left foot with some drainage concerning for diabetic foot infection possible osteo. On today's evaluation that is 05/26/2024, Patient did have a low-grade fever of 99.88 2 AM the patient is afebrile since then patient denies having any chest pain shortness of breath or cough, the patient is breathing comfortably on room air, patient denies any abdominal pain no diarrhea no nausea no vomiting, patient denies pain to the left foot wound. Patient white close at 11.54, creatinine 1.0 Vanco trough is 19.3 left foot wound culture also showing Finegoldia magna Objective - Vital Signs Vital signs: Vital Signs Temp 99 F 05/26/24 12:11 Pulse 85 05/26/24 12:11 Resp 16 05/26/24 12:11 BP 163/80 05/26/24 12:11 Pulse Ox 96 05/26/24 12:11 FiO2 Intake & Output 05/25/24 05/26/24 05/26/24 18:59 06:59 18:59 Intake Total 780 540 Output Total 0 Balance 780 540 Intake: Oral 780 540 Output: Urine 0 Other: Voiding Method Toilet Toilet Toilet # Voids 1 # Bowel Movements 1 - Exam GENERAL DESCRIPTION: An elderly male lying in bed in no distress RESPIRATORY SYSTEM: Unlabored breathing , decreased breath sounds at bases HEART: S1 S2 regular rate and rhythm , ABDOMEN: Soft , no tenderness EXTREMITIES: Left big toe amputation site wound base with no slough tissue surrounding swelling redness slightly decreased - Labs CBC & Chem 7: 05/26/24 05:46 05/26/24 05:46 Labs: Abnormal Lab Results - Last 24 Hours (Table) 05/25/24 05/25/24 05/26/24 Range/Units 17:11 20:16 05:46 WBC 11.54 H (4.50-10.00) X 10*3/uL Immature Gran # 0.05 H (0.00-0.04) X 10*3/uL Neutrophils # 8.40 H (1.80-7.70) X 10*3/uL Monocytes # 1.02 H (0.20-1.00) X 10*3/uL BUN (9.0-27.0) mg/dL BUN/Creatinine Ratio (12.00-20.00) Ratio Glucose (70-110) mg/dL POC Glucose (mg/dL) 258 H 208 H (70-110) mg/dL Calcium (8.7-10.3) mg/dL 05/26/24 05/26/24 05/26/24 Range/Units 05:46 07:26 12:12 WBC (4.50-10.00) X 10*3/uL Immature Gran # (0.00-0.04) X 10*3/uL Neutrophils # (1.80-7.70) X 10*3/uL Monocytes # (0.20-1.00) X 10*3/uL BUN 8.7 L (9.0-27.0) mg/dL BUN/Creatinine Ratio 8.70 L (12.00-20.00) Ratio Glucose 130 H (70-110) mg/dL POC Glucose (mg/dL) 119 H 153 H (70-110) mg/dL Calcium 8.3 L (8.7-10.3) mg/dL Assessment and Plan (1) Diabetic foot infection Current Visit: Yes Status: Acute Code(s): E11.628 - TYPE 2 DIABETES MELLITUS WITH OTHER SKIN COMPLICATIONS; L08.9 - LOCAL INFECTION OF THE SKIN AND SUBCUTANEOUS TISSUE, UNSP SNOMED Code(s): 886454454 (2) Diabetic foot ulcer Current Visit: Yes Status: Acute Code(s): E11.621 - TYPE 2 DIABETES MELLITUS WITH FOOT ULCER; L97.509 - NON-PRESSURE CHRONIC ULCER OTH PRT UNSP FOOT W UNSP SEVERITY SNOMED Code(s): 347963056 (3) Osteomyelitis of left foot Current Visit: Yes Status: Acute Code(s): M86.9 - OSTEOMYELITIS, UNSPECIFIED SNOMED Code(s): 1594939142887326 Plan: 1patient presented hospital with falls in this patient who recently did have amputation of the left first and second toe now with a nonhealing wound and concerning for underlying cellulitis diabetic foot infection and possible osteomyelitis. 2patient has been eval by vascular surgery complaining of further debridement we will continue current wound care with dry Aquacel silver dressing 3patient local culture currently growing MRSA anaerobe cultures are currently growing Finegojeania magna bone scan has been suggestive of osteomyelitis at the site of this ulcer 4patient to continue with vancomycin and Flagyl, currently waiting for PICC line placement and outpatient IV biotic management he will need 5-week course of IV vancomycin total Flagyl on discharge as he has already received a week of IV antibiotics here Dictation was produced using [employer] dictation software. please excuse any grammatical, word or spelling errors. Time with Patient: Less than 30
[2024-05-26 17:13] LABS: Glucose,Whole Blood 177 mg/dL (70-110)
[2024-05-26 20:33] LABS: Glucose,Whole Blood 143 mg/dL (70-110)
[2024-05-27 07:54] LABS: Glucose,Whole Blood 155 mg/dL (70-110)
[2024-05-27 09:04] LABS: Basophils # (A) 0.05 X 10*3/uL (0.00-0.10); Basophils % (A) 0.5 %; Eosinophils # (A) 0.19 X 10*3/uL (0.04-0.35); Eosinophils % (A) 1.8 %; HCT 43.3 % (39.6-50.0); HGB 14.6 g/dL (13.0-17.0); Lymphocytes # (A) 1.57 X 10*3/uL (0.90-5.00); Lymphocytes % (A) 14.7 %; MCH 29.6 pg (27.0-32.0); MCHC 33.7 g/dL (32.0-37.0); MCV 87.8 FL (80.0-97.0); Mean Platelet Volume 10.2 FL (9.5-12.2); Monocytes # (A) 0.96 X 10*3/uL (0.20-1.00); NRBC Per 100 WBC 0 X 10*3/uL (0.00-0.01); Neutrophils # (A) 7.88 X 10*3/uL (1.80-7.70); Neutrophils % (A) 73.4 %; Platelet Count 227 X 10*3/uL (140-440); RBC 4.93 X 10*6/uL (4.40-5.60); RDW 13.2 % (11.5-14.5); WBC 10.71 X 10*3/uL (4.50-10.00)
[2024-05-27 09:06] LABS: Calcium 8.2 mg/dL (8.7-10.3); Carbon Dioxide 24.5 mmol/L (21.6-31.8); Chloride 105 mmol/L (96-109); Glucose 166 mg/dL (70-110); Potassium 3.3 mmol/L (3.5-5.5); Sodium 142 mmol/L (135-145)
[2024-05-27] MEDS: POTASSIUM CHLORIDE ER 20 MEQ TAB.ER PO STA (12:38)
[2024-05-27 12:55] LABS: Glucose,Whole Blood 179 mg/dL (70-110)
--- NOTE | 2024-05-27 12:56 | P.PN ---
Subjective Progress Note Date: 05/27/24 Principal diagnosis: Reason for follow-up is left diabetic foot ulcer and infection Patient is a 68-year-old male with a past medical history pertinent for hypertension hyperlipidemia type 2 diabetes mellitus in this patient who recently did have left first and second toe amputation done by Dr. Grady, now presented to this facility after apparently the patient had a fall at home weakness and did have a nonhealing wound to the left foot with some drainage concerning for diabetic foot infection possible osteo. On today's evaluation that is 05/27/2024,the patient denies any fever or any chills, patient is breathing comfortably on room air, the patient denies chest pain shortness of breath and no significant cough, patient denies abdominal pain, no nausea vomiting or diarrhea. Denies pain to the left foot wound negative. Patient white count is down to 10.71, creatinine 1.0 Vanco trough of 19.3 Objective - Vital Signs Vital signs: Vital Signs Temp 98.4 F 05/27/24 07:54 Pulse 92 05/27/24 07:54 Resp 16 05/27/24 07:54 BP 139/78 05/27/24 07:54 Pulse Ox 95 05/27/24 07:54 FiO2 Intake & Output 05/26/24 05/27/24 05/27/24 18:59 06:59 18:59 Intake Total 710 Output Total 400 Balance 310 Intake: Oral 710 Output: Urine 400 Other: Voiding Method Toilet Toilet # Voids 1 2 # Bowel Movements 1 - Exam GENERAL DESCRIPTION: An elderly male lying in bed in no distress RESPIRATORY SYSTEM: Unlabored breathing , decreased breath sounds at bases HEART: S1 S2 regular rate and rhythm , ABDOMEN: Soft , no tenderness EXTREMITIES: Left big toe amputation site wound base with no slough tissue surrounding swelling redness slightly decreased - Labs CBC & Chem 7: 05/27/24 05:41 05/27/24 05:41 Labs: Abnormal Lab Results - Last 24 Hours (Table) 05/26/24 05/26/24 05/26/24 Range/Units 12:12 17:11 20:32 WBC (4.50-10.00) X 10*3/uL Immature Gran # (0.00-0.04) X 10*3/uL Neutrophils # (1.80-7.70) X 10*3/uL Potassium (3.5-5.5) mmol/L Anion Gap (4.00-12.00) mmol/L BUN (9.0-27.0) mg/dL BUN/Creatinine Ratio (12.00-20.00) Ratio Glucose (70-110) mg/dL POC Glucose (mg/dL) 153 H 177 H 143 H (70-110) mg/dL Calcium (8.7-10.3) mg/dL 05/27/24 05/27/24 05/27/24 Range/Units 05:41 05:41 07:53 WBC 10.71 H (4.50-10.00) X 10*3/uL Immature Gran # 0.06 H (0.00-0.04) X 10*3/uL Neutrophils # 7.88 H (1.80-7.70) X 10*3/uL Potassium 3.3 L (3.5-5.5) mmol/L Anion Gap 12.50 H (4.00-12.00) mmol/L BUN 8.0 L (9.0-27.0) mg/dL BUN/Creatinine Ratio 8.00 L (12.00-20.00) Ratio Glucose 166 H (70-110) mg/dL POC Glucose (mg/dL) 155 H (70-110) mg/dL Calcium 8.2 L (8.7-10.3) mg/dL Microbiology - Last 24 Hours (Table) 05/21/24 17:27 Blood Culture - Final Blood Assessment and Plan (1) Diabetic foot infection Current Visit: Yes Status: Acute Code(s): E11.628 - TYPE 2 DIABETES MELLITUS WITH OTHER SKIN COMPLICATIONS; L08.9 - LOCAL INFECTION OF THE SKIN AND SUBCUTANEOUS TISSUE, UNSP SNOMED Code(s): 681412201 (2) Diabetic foot ulcer Current Visit: Yes Status: Acute Code(s): E11.621 - TYPE 2 DIABETES MELLITUS WITH FOOT ULCER; L97.509 - NON-PRESSURE CHRONIC ULCER OTH PRT UNSP FOOT W UNSP SEVERITY SNOMED Code(s): 217870799 (3) Osteomyelitis of left foot Current Visit: Yes Status: Acute Code(s): M86.9 - OSTEOMYELITIS, UNSPECIFIED SNOMED Code(s): 0408639279244403 Plan: 1patient presented hospital with falls in this patient who recently did have amputation of the left first and second toe now with a nonhealing wound and co ncerning for underlying cellulitis diabetic foot infection and possible osteomyelitis. 2patient has been eval by vascular surgery complaining of further debridement we will continue current wound care with dry Aquacel silver dressing 3patient local culture currently growing MRSA anaerobe cultures are currently growing Finegoldia magna bone scan has been suggestive of osteomyelitis at the site of this ulcer 4patient has been advised importance of IV antibiotic to treat his infection/osteomyelitis he did agree for the PICC line placement plan is for 5week course of IV vancomycin and oral Flagyl on discharge and close outpatient follow-up Dictation was produced using [employer] dictation software. please excuse any grammatical, word or spelling errors. Time with Patient: Less than 30
--- NOTE | 2024-05-27 14:00 | P.PN ---
Subjective Progress Note Date: 05/27/24 Subjective: Patient seen and examined at bedside. No acute events overnight. This morning he had no complaints, and was agreeable to have PICC line. Pertinent positives and negatives as discussed above, a complete review of systems was performed and all other systems are negative. Vitals Signs Reviewed. General: Nontoxic, no distress, appears at stated age, morbidly obese Derm: Warm, dry, left foot dressing clean, dry, intact Head: Atraumatic, normocephalic, symmetric Eyes: EOMI, no lid lag, anicteric sclera Mouth: No lip lesion, mucus membranes moist Cardiovascular: S1S2 reg, no murmur Lungs: CTA bilateral, no rhonchi, no rales, no accessory muscle use Abdominal: Soft, nontender to palpation, no guarding, no appreciable organomegaly Ext: No gross muscle atrophy, no edema, no contractures Neuro: CN II-XI grossly intact, no focal neuro deficits Psych: Alert, oriented, appropriate affect Data Reviewed Today: Pertinent Labs: WBC 10.71, hemoglobin 14.6, platelets 10.2, sodium 142, potassium 3.3 chloride 105, bicarb 24.5, anion gap 12.5 BUN 8, creatinine 1.0, glucose 166. Imaging: No new imaging Assessment and Plan: # Left foot osteomyelitis # Left foot diabetic Foot Ulcer with superimposed infection #Leukocytosis Vascular surgery recommending no further surgical debridement, recommending outpatient wound care clinic follow-up -ID following -Patient agreed to PICC line placement, will need IV antibiotics on discharge -Continue IV vancomycin, monitor for renal toxicity, also on oral Flagyl 500 3 times daily -Discussed management with PCP, assessing decision making capacity, will likely need psych evaluation #Hypokalemia Potassium 3.3 40 milliequivalents of oral potassium given today Continue to monitor BMP and magnesium #Syncope, Multiple falls, multifactorial secondary to orthostatic hypotension, peripheral neuropathy from diabetes, autonomic dysfunction from diabetes, resolved #Orthostatic Hypotension, component of hypovolemia superimposed on likely autonomic dysfunction from diabetes, resolved - Orthostatics improved with normal saline Fall precautions - monitor on telemetry for arrhythmia - PT suggests subacute rehab on discharge due to unstable gait #Acute Encephalopathy, Likely multifactorial, metabolic vs Hx of CVA vs new Alzheimer's dementia, now resolved Displaying signs of sundowning Will decrease Xanax to 1 mg every 12 hours Continue to monitor #Elevated Troponins, representing Type II NSTEMI #RBBB #HTN #Systolic cardiomyopathy Initial troponin 0.143, and repeated 0.99. Daily ASA 81 mg, atorvastatin 80mg HS, metoprolol 25mg BID TSH WNL, cholesterol WNL HDL 34.4 - Echocardiogram with impaired LV function, EF at 40% Cardiology following, increase lisinopril to 10 twice daily -May need ischemic evaluation in the future # Uncontrolled, Diabetes Mellitus 2 Begin Accu-Cheks and sliding scale insulin, monitor for hypoglycemia -Takes 30U long acting at home, placed him on 17U levemir BID initially, continue 17 units at bedtime - A1c 8.0 #Urinary retention likely secondary to neurogenic bladder Bladder scan completed 1000 cc retention Not requiring Del Angel catheter at the moment Begin Flomax 0.4 mg daily Non-anion gap metabolic acidosis, resolved Chronic Medical Conditions #Hyperlipidemia Statin as above F: P.O. E: Replete as needed N: Heart healthy diet E: PT/OT DVT ppx: Subcu Lovenox Code status: Full code Anticipated discharge place: Pending clinical course Anticipated discharge time: Pending clinical course I have seen and evaluated the patient today. Discussed with the resident and agree with the residents finding and plan as documented in the resident's note. Changes highlighted in blue font. Objective - Vital Signs Vital signs: Vital Signs Temp 98.4 F 05/27/24 07:54 Pulse 92 05/27/24 07:54 Resp 16 05/27/24 07:54 BP 139/78 05/27/24 07:54 Pulse Ox 95 05/27/24 07:54 FiO2 Intake & Output 05/26/24 05/27/24 05/27/24 18:59 06:59 18:59 Intake Total 710 Output Total 400 Balance 310 Intake: Oral 710 Output: Urine 400 Other: Voiding Method Toilet Toilet Toilet # Voids 1 2 1 # Bowel Movements 1 1 - Labs CBC & Chem 7: 05/27/24 05:41 05/27/24 05:41 Labs: Abnormal Lab Results - Last 24 Hours (Table) 05/26/24 05/26/24 05/27/24 Range/Units 17:11 20:32 05:41 WBC 10.71 H (4.50-10.00) X 10*3/uL Immature Gran # 0.06 H (0.00-0.04) X 10*3/uL Neutrophils # 7.88 H (1.80-7.70) X 10*3/uL Potassium (3.5-5.5) mmol/L Anion Gap (4.00-12.00) mmol/L BUN (9.0-27.0) mg/dL BUN/Creatinine Ratio (12.00-20.00) Ratio Glucose (70-110) mg/dL POC Glucose (mg/dL) 177 H 143 H (70-110) mg/dL Calcium (8.7-10.3) mg/dL 05/27/24 05/27/24 05/27/24 Range/Units 05:41 07:53 12:54 WBC (4.50-10.00) X 10*3/uL Immature Gran # (0.00-0.04) X 10*3/uL Neutrophils # (1.80-7.70) X 10*3/uL Potassium 3.3 L (3.5-5.5) mmol/L Anion Gap 12.50 H (4.00-12.00) mmol/L BUN 8.0 L (9.0-27.0) mg/dL BUN/Creatinine Ratio 8.00 L (12.00-20.00) Ratio Glucose 166 H (70-110) mg/dL POC Glucose (mg/dL) 155 H 179 H (70-110) mg/dL Calcium 8.2 L (8.7-10.3) mg/dL Microbiology - Last 24 Hours (Table) 05/21/24 17:27 Blood Culture - Final Blood
[2024-05-27 17:18] LABS: Glucose,Whole Blood 237 mg/dL (70-110)
[2024-05-27 20:15] LABS: Glucose,Whole Blood 194 mg/dL (70-110)
[2024-05-28 07:08] LABS: Glucose,Whole Blood 154 mg/dL (70-110)
--- NOTE | 2024-05-28 07:31 | CT ---
EXAM: CT Head Without Intravenous Contrast CLINICAL HISTORY: ITS.REASON CT Reason: FALL TECHNIQUE: Axial computed tomography images of the head/brain without intravenous contrast. CTDI is 45.2 mGy and DLP is 1106 mGy-cm. This CT exam was performed using one or more of the following dose reduction techniques: automated exposure control, adjustment of the mA and/or kV according to patient size, and/or use of iterative reconstruction technique. COMPARISON: No relevant prior studies available. FINDINGS: Brain: No acute intracranial abnormality. Consider MRI for further concern. Areas of decreased attenuation in the deep cerebral white matter are consistent with small vessel ischemic/degenerative changes. The cerebral and cerebellar sulci are prominent consistent with brain atrophy. No hemorrhage. Ventricles: Unremarkable. No ventriculomegaly. Bones/joints: Unremarkable. No acute fracture. Soft tissues: Unremarkable. Vasculature: Atherosclerotic disease. Sinuses: Unremarkable as visualized. Mastoid air cells: Unremarkable as visualized. No mastoid effusion. IMPRESSION: 1. No acute intracranial abnormality. Consider MRI for further concern. 2. Small vessel ischemic/degenerative changes. 3. Cerebral and cerebellar atrophy. EXAM: CT Cervical Spine Without Intravenous Contrast CLINICAL HISTORY: ITS.REASON CT Reason: FALL TECHNIQUE: Axial computed tomography images of the cervical spine without intravenous contrast. CTDI is 19.6 mGy and DLP is 527.1 mGy-cm. This CT exam was performed using one or more of the following dose reduction techniques: automated exposure control, adjustment of the mA and/or kV according to patient size, and/or use of iterative reconstruction technique. COMPARISON: No relevant prior studies available. FINDINGS: Vertebrae: No evidence of acute displaced fracture or dislocation within the cervical spine. Consider MRI for further concern. Loss of cervical lordosis which can be seen with patient positioning or muscle spasm. Degenerative changes in the cervical spine noted including loss of disc space height, osteophyte formation, uncovertebral hypertrophy, and facet arthropathy. Soft tissues: Unremarkable. Vasculature: Atherosclerotic disease. Other findings: Partially calcified disc bulges noted in the cervical spine with partially Celsite disc extrusion at C3-C4 with cranial extension. IMPRESSION: 1. No evidence of acute displaced fracture or dislocation within the cervical spine. Consider MRI for further concern. 2. Loss of cervical lordosis which can be seen with patient positioning or muscle spasm. 3. Degenerative changes.
[2024-05-28 08:43] LABS: Basophils # (A) 0.04 X 10*3/uL (0.00-0.10); Basophils % (A) 0.4 %; Eosinophils # (A) 0.18 X 10*3/uL (0.04-0.35); Eosinophils % (A) 1.7 %; HCT 43.4 % (39.6-50.0); HGB 14.7 g/dL (13.0-17.0); Lymphocytes # (A) 1.54 X 10*3/uL (0.90-5.00); Lymphocytes % (A) 14.3 %; MCH 29.2 pg (27.0-32.0); MCHC 33.9 g/dL (32.0-37.0); MCV 86.3 FL (80.0-97.0); Mean Platelet Volume 10.6 FL (9.5-12.2); Monocytes # (A) 1.15 X 10*3/uL (0.20-1.00); Monocytes % (A) 10.7 %; NRBC Per 100 WBC 0 X 10*3/uL (0.00-0.01); Neutrophils # (A) 7.79 X 10*3/uL (1.80-7.70); Neutrophils % (A) 72.3 %; Platelet Count 259 X 10*3/uL (140-440); RBC 5.03 X 10*6/uL (4.40-5.60); RDW 13.2 % (11.5-14.5); WBC 10.76 X 10*3/uL (4.50-10.00)
[2024-05-28 09:20] VITALS: BMI 35.7
[2024-05-28 12:17] LABS: BUN/Creat Ratio 9.92 Ratio (12.00-20.00); Blood Urea Nitrogen 12.9 mg/dL (9.0-27.0); Calcium 8.3 mg/dL (8.7-10.3); Carbon Dioxide 25.4 mmol/L (21.6-31.8); Chloride 106 mmol/L (96-109); Glucose 181 mg/dL (70-110); Potassium 3.7 mmol/L (3.5-5.5); Sodium 142 mmol/L (135-145)
[2024-05-28 12:18] LABS: Glucose,Whole Blood 191 mg/dL (70-110)
--- NOTE | 2024-05-28 13:13 | P.CN ---
Psychiatric Consult - . Consult date: 05/28/24 Consult:: 05/28/24 13:03 IDENTIFYING DATA: This patient is a 68-year-old male, has 3 kids and living with one of them REASON FOR REFERRAL: Psychiatry was consulted for capacity HISTORY OF PRESENT ILLNESS: The patient presented to the hospital on 05/21 after a fall at home. Patient hit his head but imaging revealed no acute processes. Patient reportedly has been having a lot of falls at home. Foot x-ray revealed cortical erosions medial distal left first metatarsal and antibiotics was started. Vascular surgery on board. Patient was A and O x 2 to self and location but not date. He was unaware of his medical diagnoses but was aware of some of his medications including Xanax, lisinopril, hydrocodone, Lipitor. He states he wishes to go home however will be discharged to a subacute rehab. He understands the risks associated with not going to rehab which includes " or lose my foot "he is aware of the benefits which includes "getting my infection cleared ". Spoke to patient's son Gregory who expresses concerns with his father and that his memory has been deteriorating over the past few years. He states that when patient is at home, he is not tending to his ADLs and will forget conversation that was just spoken. He states pain patient has been doing better since PACE is on board however he feels like Xanax and opiates are clouding his memory. He denies any family history of dementia. Spoke to patient's nurse who corroborated that patient is often forgetful and will forget conversations that had just been spoken to. At this time patient denies any suicidal or homical ideations, intent or plan. Patient denies any auditory, visual hallucinations and denies any paranoia or delusions. PAST PSYCHIATRIC HISTORY: Patient has a a history of anxiety and is currently on Xanax 1 mg twice daily. Patient denies any previous psychiatric hospitalizations. Patient denies any psychiatric outpatient follow-up. Patient denies any history of suicide attempts in the past. PAST MEDICAL HISTORY: Diabetes, hypertension, osteoarthritis. ALLERGIES: as per EMR. CHEMICAL DEPENDENCY HISTORY: as per HPI. FAMILY PSYCHIATRIC/SUBSTANCE USE HISTORY: Denies SOCIAL HISTORY: Patient has 3 sons and is living with one of them. MENTAL STATUS EXAM: General Appearance: Patient appears to be stated age is alert, pleasant, and cooperative. Patient appears to have fair hygiene and grooming wearing hospital gown with fair eye contact. Behavior: Patient is calmly lying in bed without any agitated behavior. Speech: Patient's speech is fluent and nonpressured. Mood/Affect: Patient reports their mood is "depressed", affect is congruent Suicidality/Homicidality: Patient denies having any suicidal or homicidal ideation intent or plan. Perceptions: Patient denies any visual hallucinations and denies any auditory hallucinations Though content/process: There is no evidence of any delusional thought content and thought process is linear and goal-directed. Memory and concentration: AOX2 date, grossly intact for the purposes of this session. Judgment and insight: Poor IMPRESSIONS: History of anxiety Unspecified dementia PLAN: -At this time patient DOES NOT meet criteria for inpatient psychiatric admission. -Patient DOES NOT have decision making capacity at this time and is unable to reason through and communicate/appreciate the risks, benefits and alternatives to treatment. Spoke to patient's son regarding this decision and he states family will pursue guardianship for patient. -Communicated plan to patient's nurse -Psychiatry will sign off at this time -Please contact with any questions.
--- NOTE | 2024-05-28 13:17 | P.PN ---
Subjective Progress Note Date: 05/28/24 Principal diagnosis: Reason for follow-up is left diabetic foot ulcer and infection Patient is a 68-year-old male with a past medical history pertinent for hypertension hyperlipidemia type 2 diabetes mellitus in this patient who recently did have left first and second toe amputation done by Dr. Grady, now presented to this facility after apparently the patient had a fall at home weakness and did have a nonhealing wound to the left foot with some drainage concerning for diabetic foot infection possible osteo. On today's evaluation that is 05/28/2024,the patient remains to be afebrile, patient is on room air not requiring supplemental oxygen and denies any shor tness of breath no chest pain or cough.Patient denies having any nausea or vomiting, no abdominal pain and no diarrhea has been reported, denies pain to the left foot Patient white count is 10.76, creatinine is 1.3 Objective - Vital Signs Vital signs: Vital Signs Temp 98.7 F 05/28/24 07:09 Pulse 85 05/28/24 07:09 Resp 15 05/28/24 07:09 BP 153/83 05/28/24 07:09 Pulse Ox 96 05/28/24 07:09 FiO2 Intake & Output 05/27/24 05/28/24 05/28/24 18:59 06:59 18:59 Intake Total 540 590 Balance 540 590 Weight 100.5 kg Intake: Oral 540 590 Other: Voiding Method Toilet Toilet Toilet # Voids 1 2 # Bowel Movements 1 1 1 - Exam GENERAL DESCRIPTION: An elderly male lying in bed in no distress RESPIRATORY SYSTEM: Unlabored breathing , decreased breath sounds at bases HEART: S1 S2 regular rate and rhythm , ABDOMEN: Soft , no tenderness EXTREMITIES: Left big toe amputation site wound base with no slough tissue surrounding swelling discoloration has slightly decreased - Labs CBC & Chem 7: 05/28/24 05:56 05/28/24 05:56 Labs: Abnormal Lab Results - Last 24 Hours (Table) 05/27/24 05/27/24 05/27/24 Range/Units 12:54 17:16 20:15 WBC (4.50-10.00) X 10*3/uL Immature Gran # (0.00-0.04) X 10*3/uL Neutrophils # (1.80-7.70) X 10*3/uL Monocytes # (0.20-1.00) X 10*3/uL POC Glucose (mg/dL) 179 H 237 H 194 H (70-110) mg/dL 05/28/24 05/28/24 Range/Units 05:56 07:07 WBC 10.76 H (4.50-10.00) X 10*3/uL Immature Gran # 0.06 H (0.00-0.04) X 10*3/uL Neutrophils # 7.79 H (1.80-7.70) X 10*3/uL Monocytes # 1.15 H (0.20-1.00) X 10*3/uL POC Glucose (mg/dL) 154 H (70-110) mg/dL Assessment and Plan (1) Diabetic foot infection Current Visit: Yes Status: Acute Code(s): E11.628 - TYPE 2 DIABETES MELLITUS WITH OTHER SKIN COMPLICATIONS; L08.9 - LOCAL INFECTION OF THE SKIN AND SUBCU TANEOUS TISSUE, UNSP SNOMED Code(s): 305483391 (2) Diabetic foot ulcer Current Visit: Yes Status: Acute Code(s): E11.621 - TYPE 2 DIABETES MELLITUS WITH FOOT ULCER; L97.509 - NON-PRESSURE CHRONIC ULCER OTH PRT UNSP FOOT W UNSP SEVERITY SNOMED Code(s): 637348705 (3) Osteomyelitis of left foot Current Visit: Yes Status: Acute Code(s): M86.9 - OSTEOMYELITIS, UNSPECIFIED SNOMED Code(s): 5645724050934247 Plan: 1patient presented hospital with falls in this patient who recently did have amputation of the left first and second toe now with a nonhealing wound and concerning for underlying cellulitis diabetic foot infection and possible osteomyelitis. 2patient has been eval by vascular surgery complaining of further debridement we will continue current wound care with dry Aquacel silver dressing 3patient local culture currently growing MRSA anaerobe cultures are currently growing Finegoldia magna bone scan has been suggestive of osteomyelitis at the site of this ulcer 4patient did get a PICC line currently waiting for outpatient IV depending arrangement plan is for 5-week course of vancomycin pharmacy to dose and Flagyl and close outpatient follow-up Dictation was produced using [employer] dictation software. please excuse any grammatical, word or spelling errors. Time with Patient: Less than 30
--- NOTE | 2024-05-28 15:18 | P.DS ---
Providers Date of admission: 05/21/24 12:06 Expected date of discharge: 05/28/24 Attending physician: Araseli Aguilar MD Consults: 05/21/24 12:04 Consult Physician Urgent Consulting Provider: [facility] Consult Reason/Comments: nstemi Do you want consulting provider notified?: Yes 05/21/24 13:31 Consult Physician Urgent Consulting Provider: Pratik Grady Consult Reason/Comments: diabetic wounds lower extremities Do you want consulting provider notified?: Yes 05/21/24 15:58 Consult Physician Urgent Consulting Provider: Hailey Villegas Consult Reason/Comments: RT FOOT WOUND Do you want consulting provider notified?: Already Contacted 05/27/24 16:23 Consult Physician Routine Consulting Provider: Roberto Carrera Consult Reason/Comments: assess capacity Do you want consulting provider notified?: Yes Primary care physician: Padilla Garcia MD Hospital Course: Discharge diagnoses; # Left foot osteomyelitis due to diabetic foot ulcer #Syncope, Multiple falls, multifactorial secondary to orthostatic hypotension, peripheral neuropathy from diabetes, autonomic dysfunction from diabetes #Orthostatic Hypotension, component of hypovolemia superimposed on likely autonomic dysfunction from diabetes #Acute Encephalopathy, Likely multifactorial, metabolic vs Hx of CVA vs new Alzheimer's dementia #Elevated Troponins, representing Type II NSTEMI #RBBB #HTN #Systolic cardiomyopathy # Uncontrolled, Diabetes Mellitus 2 #Urinary retention likely secondary to neurogenic bladder #Leukocytosis #Hypokalemia Hospital course; HPI: Patient is a 68 year old male with HTN, Hyperlipidemia, DM2, Left first and second digit toe amputation who presents with his son/caregiver who gave the history. The son states he fell and hit his head in the shower prompting him to call EMS. The son states he has been experiencing "a number of falls" since 05/17/24, and he was brought in via EMS on 05/18/24 due to falling and urinary incontinence, and discharged on 05/18/24. The son states he had to "carry him around" after discharge on 05/18/24, as he was unable to walk without falling. The patient states he has only fallen "twice in the past week", and believes his balance issues are due to his amputations. He states he has amputation bandages replaced every 2 days since procedure completed by Dr. Grady. He states his foot is wrapped with bag and bandages to keep it dry while he showers, and is having no current pain from the site. The patient states he is having some nausea and vomiting, but denies loss of consciousness, diarrhea, constipation, fever, urinary changes, headache, chest pain, shortness of breath, or appetite changes. He has no other complaints at this time. -Initial lab work done in the ER showed WBC 13.8, hemoglobin 15.5, platelet 274, sodium 137, potassium 4.2, chloride 101, bicarb 24, BUN 22, creatinine 1.03, glucose 186, troponin 0.143, and repeated 0.99. -EKG done in the ER showed heart rate of 100 , no ST segment elevation or depression seen, no T-wave inversions seen, possible RBBB noted. -CT head done showed no acute intracranial process -Foot x-ray shows cortical erosions medial distal left first metatarsal, osteomyelitis During hospital stay patient was treated for left foot osteomyelitis secondary to diabetic foot ulcer with leukocytosis. Patient was seen by wound care and infectious disease and vascular surgery. He was treated with IV vancomycin and oral Flagyl for 8 days. Vascular surgery recommended no further surgical debridement, to follow-up in outpatient clinic setting. PICC line was placed. He was also treated for orthostatic hypotension which improved with IV fluids. During admission he had 2 falls, and subsequent brain imaging showed no acute process or trauma. Also he was treated for acute encephalopathy, likely multi factorial. His dose of Xanax was lowered to 1 mg. He also displayed signs of sundowning during stay, and short-term memory loss. Also during stay initial troponins were elevated at 0.143 and fell to 0.99, he was started on guideline directed medical therapy, and echocardiogram showed impaired LV function with a EF at 40%. Patient also had incident of urinary retention likely secondary to neurogenic bladder and found to be retaining 1000 cc, and was treated with Flomax 0.4 mg. Patient is discharged in stable condition to subacute rehab facility. Discharged with new meds aspirin 81 mg daily, Flagyl 500 mg 3 times daily, Flomax 0.4 mg, Levemir 17 units subq nightly, metoprolol 25 mg twice daily, Xanax 1 mg twice daily, lisinopril 10 mg twice daily, Lipitor 80 mg nightly, NovoLog ACHS, IV vancomycin 1500 mg. Patient is to follow-up with Dr. Brito, Dr. Grady, and [facility]. Physical exam: Vitals Signs Reviewed. General: Nontoxic, no distress, appears at stated age, morbidly obese Derm: Warm, dry, left foot dressing clean, dry, intact Head: Atraumatic, normocephalic, symmetric Eyes: EOMI, no lid lag, anicteric sclera Mouth: No lip lesion, mucus membranes moist Cardiovascular: S1S2 reg, no murmur Lungs: CTA bilateral, no rhonchi, no rales, no accessory muscle use Abdominal: Soft, nontender to palpation, no guarding, no appreciable organomegaly Ext: No gross muscle atrophy, no edema, no contractures Neuro: CN II-XI grossly intact, no focal neuro deficits Psych: Alert, oriented, appropriate affect Dictation was produced using [employer] dictation software. please excuse any grammatical, word or spelling errors. Patient was declined by [facility] [place], [facility] or [place]. Patient will not be discharged today This note will serve as today's progress note. I have seen and evaluated the patient today. Discussed with the resident and agree with the residents finding and plan as documented in the resident's note. Changes highlighted in blue font. Plan - Discharge Summary Discharge Rx Participant: No New Discharge Prescriptions: New Aspirin 81 mg PO DAILY tab metroNIDAZOLE [Flagyl] 500 mg PO TID #35 tab Tamsulosin [Flomax] 0.4 mg PO PC-BRKFST cap Insulin Detemir (Levemir) [Levemir] 17 unit SQ HS each Metoprolol Tartrate [Lopressor] 25 mg PO BID tab ALPRAZolam [Xanax] 1 mg PO Q12HR #1 tab lisinopriL [Zestril] 10 mg PO BID tab Atorvastatin [Lipitor] 80 mg PO HS tab INSULIN ASPART (NovoLOG) [NovoLOG (formulary)] 0 unit SQ ACHS each Vancomycin 1,500 mg IVPB Q16H 35 Days each Continue Semaglutide [Ozempic] 0.5 mg SQ MO Albuterol Inhaler [Ventolin Hfa Inhaler] 2 puff INHALATION RT-QID PRN PRN Reason: Shortness Of Breath Tobramycin 0.3% Ophth Soln [Tobrex 0.3% Ophth Soln] 2 drops BOTH EYES Q4H Discontinued ALPRAZolam [Xanax] 2 mg PO Q12H Hydrocodone/Acetaminophen [Hydrocodone/Acetaminophen 7.5-325] 1 tab PO BID Insulin Glargine,Hum.rec.anlog [Lantus Solostar Pen] 30 units SQ BID PRN PRN Reason: HIGH BLOOD SUGAR Insulin Aspart [NovoLOG Flexpen] 1 - 30 units SQ AC-TID PRN PRN Reason: HIGH BLOOD SUGAR lisinopriL [Zestril] 2.5 mg PO DAILY #30 tab Atorvastatin [Lipitor] 20 mg PO DAILY Discharge Medication List Albuterol Inhaler [Ventolin Hfa Inhaler] 2 puff INHALATION RT-QID PRN 05/21/24 [History] Semaglutide [Ozempic] 0.5 mg SQ MO 05/21/24 [History] Tobramycin 0.3% Ophth Soln [Tobrex 0.3% Ophth Soln] 2 drops BOTH EYES Q4H 05/21/24 [History] ALPRAZolam [Xanax] 1 mg PO Q12HR #1 tab 05/28/24 [Rx] Aspirin 81 mg PO DAILY tab 05/28/24 [Rx] Atorvastatin [Lipitor] 80 mg PO HS tab 05/28/24 [Rx] INSULIN ASPART (NovoLOG) [NovoLOG (formulary)] 0 unit SQ ACHS each 05/28/24 [Rx] Insulin Detemir (Levemir) [Levemir] 17 unit SQ HS each 05/28/24 [Rx] Metoprolol Tartrate [Lopressor] 25 mg PO BID tab 05/28/24 [Rx] Tamsulosin [Flomax] 0.4 mg PO PC-BRKFST cap 05/28/24 [Rx] Vancomycin 1,500 mg IVPB Q16H 35 Days each 05/28/24 [Rx] lisinopriL [Zestril] 10 mg PO BID tab 05/28/24 [Rx] metroNIDAZOLE [Flagyl] 500 mg PO TID #35 tab 05/28/24 [Rx] Follow up Appointment(s)/Referral(s): Alfred Dean MD [STAFF PHYSICIAN] - 2 Weeks [facility] Rodriguez [NON-STAFF] - 1-2 days (IV ABX) Pratik Grady MD [STAFF PHYSICIAN] - 1 Week Patient Instructions/Handouts: Osteomyelitis (DC) Activity/Diet/Wound Care/Special Instructions: Please see your PCP, and vascular surgeon. Please follow up with them for wound care. Also see your electrician supervisor. Discharge Disposition: TRANSFER TO SNF/ECF
[2024-05-28 17:17] LABS: Glucose,Whole Blood 158 mg/dL (70-110)
[2024-05-28 20:21] LABS: Glucose,Whole Blood 118 mg/dL (70-110)
[2024-05-29 07:23] LABS: Glucose,Whole Blood 128 mg/dL (70-110)
[2024-05-29 08:56] LABS: HCT 41.5 % (39.6-50.0); HGB 13.8 g/dL (13.0-17.0); MCHC 33.3 g/dL (32.0-37.0); MCV 87.2 FL (80.0-97.0); Mean Platelet Volume 10.6 FL (9.5-12.2); NRBC Per 100 WBC 0 X 10*3/uL (0.00-0.01); Platelet Count 266 X 10*3/uL (140-440); RBC 4.76 X 10*6/uL (4.40-5.60); RDW 13.3 % (11.5-14.5); WBC 10.73 X 10*3/uL (4.50-10.00)
[2024-05-29 09:00] LABS: BUN/Creat Ratio 9.54 Ratio (12.00-20.00); Blood Urea Nitrogen 12.4 mg/dL (9.0-27.0); Carbon Dioxide 25.3 mmol/L (21.6-31.8); Chloride 108 mmol/L (96-109); Glucose 140 mg/dL (70-110); Potassium 3.4 mmol/L (3.5-5.5); Sodium 143 mmol/L (135-145)
--- NOTE | 2024-05-29 11:56 | P.PN ---
Subjective Progress Note Date: 05/29/24 Principal diagnosis: Reason for follow-up is left diabetic foot ulcer and infection Patient is a 68-year-old male with a past medical history pertinent for hypertension hyperlipidemia type 2 diabetes mellitus in this patient who recently did have left first and second toe amputation done by Dr. Grady, now presented to this facility after apparently the patient had a fall at home weakness and did have a nonhealing wound to the left foot with some drainage concerning for diabetic foot infection possible osteo. On today's evaluation that is 05/29/2024, the patient continues to be afebrile, the patient is on room air and breathing comfortably, the Pt denies having any chest pain or worsening cough, the patient denies abdominal pain no nausea vomiting or diarrhea, patient did pulled out his PICC line yesterday hence his discharge was put on hold Patient white count is 10.73, creatinine is 1.3 Objective - Vital Signs Vital signs: Vital Signs Temp 98.4 F 05/29/24 08:00 Pulse 85 05/29/24 08:00 Resp 17 05/29/24 08:00 BP 154/89 05/29/24 08:00 Pulse Ox 96 05/29/24 08:00 FiO2 Intake & Output 05/28/24 05/29/24 05/29/24 18:59 06:59 18:59 Intake Total 590 Balance 590 Weight 100.5 kg Intake: Oral 590 Other: Voiding Method Toilet # Voids 1 2 # Bowel Movements 1 - Exam GENERAL DESCRIPTION: An elderly male lying in bed in no distress RESPIRATORY SYSTEM: Unlabored breathing , decreased breath sounds at bases HEART: S1 S2 regular rate and rhythm , ABDOMEN: Soft , no tenderness EXTREMITIES: Left big toe amputation site wound base with no slough tissue surrounding swelling discoloration has slightly decreased - Labs CBC & Chem 7: 05/29/24 05:05 05/29/24 05:05 Labs: Abnormal Lab Results - Last 24 Hours (Table) 05/28/24 05/28/24 05/28/24 Range/Units 05:56 12:17 17:16 WBC (4.50-10.00) X 10*3/uL Potassium (3.5-5.5) mmol/L BUN/Creatinine Ratio 9.92 L (12.00-20.00) Ratio Glucose 181 H (70-110) mg/dL POC Glucose (mg/dL) 191 H 158 H (70-110) mg/dL Calcium 8.3 L (8.7-10.3) mg/dL 05/28/24 05/29/24 05/29/24 Range/Units 20:20 05:05 05:05 WBC 10.73 H (4.50-10.00) X 10*3/uL Potassium 3.4 L (3.5-5.5) mmol/L BUN/Creatinine Ratio 9.54 L (12.00-20.00) Ratio Glucose 140 H (70-110) mg/dL POC Glucose (mg/dL) 118 H (70-110) mg/dL Calcium 8.0 L (8.7-10.3) mg/dL 05/29/24 Range/Units 06:50 WBC (4.50-10.00) X 10*3/uL Potassium (3.5-5.5) mmol/L BUN/Creatinine Ratio (12.00-20.00) Ratio Glucose (70-110) mg/dL POC Glucose (mg/dL) 128 H (70-110) mg/dL Calcium (8.7-10.3) mg/dL Assessment and Plan (1) Diabetic foot infection Current Visit: Yes Status: Acute Code(s): E11.628 - TYPE 2 DIABETES MELLITUS WITH OTHER SKIN COMPLICATIONS; L08.9 - LOCAL INFECTION OF THE SKIN AND SUBCUTANEOUS TISSUE, UNSP SNOMED Code(s): 686354813 (2) Diabetic foot ulcer Current Visit: Yes Status: Acute Code(s): E11.621 - TYPE 2 DIABETES MELLITUS WITH FOOT ULCER; L97.509 - NON-PRESSURE CHRONIC ULCER OTH PRT UNSP FOOT W UNSP SEVERITY SNOMED Code(s): 298912575 (3) Osteomyelitis of left foot Current Visit: Yes Status: Acute Code(s): M86.9 - OSTEOMYELITIS, UNSPECIFIED SNOMED Code(s): 0965993844697626 Plan: 1patient [facility] with falls in this patient who recently did have amputation of the left first and second toe now with a nonhealing wound and concerning for underlying cellulitis diabetic foot infection and possible osteomyelitis. 2patient has been eval by vascular surgery complaining of further debridement we will continue current wound care with dry Aquacel silver dressing 3patient local culture currently growing MRSA anaerobe cultures are currently miguel stahl bone scan has been suggestive of osteomyelitis at the site of this ulcer 4patient currently waiting for placement of another PICC line as he pulled out his PICC line yesterday before discharge, plan is for 5-week course of vancomycin pharmacy to dose and Flagyl and close outpatient follow-up Dictation was produced using [employer] dictation software. please excuse any grammatical, word or spelling errors. Time with Patient: Less than 30
[2024-05-29 12:38] LABS: Glucose,Whole Blood 231 mg/dL (70-110)
[2024-05-29 13:33] VITALS: BP 153/84; PULSE 84; RESP 18; TEMP 98
[2024-05-29] MEDS: VANCOMYCIN TROUGH DUE 1 EACH MISC MISCELLANE ONE (14:15)
--- NOTE | 2024-05-29 14:47 | P.DS ---
Providers Date of admission: 05/21/24 12:06 Expected date of discharge: 05/29/24 Attending physician: Araseli Aguilar MD Consults: 05/21/24 12:04 Consult Physician Urgent Consulting Provider: [facility] Consult Reason/Comments: nstemi Do you want consulting provider notified?: Yes 05/21/24 13:31 Consult Physician Urgent Consulting Provider: Prtaik Grady Consult Reason/Comments: diabetic wounds lower extremities Do you want consulting provider notified?: Yes 05/21/24 15:58 Consult Physician Urgent Consulting Provider: Hailey Villegas Consult Reason/Comments: RT FOOT WOUND Do you want consulting provider notified?: Already Contacted 05/27/24 16:23 Consult Physician Routine Consulting Provider: Roberto Carrera Consult Reason/Comments: assess capacity Do you want consulting provider notified?: Yes Primary care physician: Padilla Garcia MD Hospital Course: Discharge diagnoses; # Left foot osteomyelitis due to diabetic foot ulcer #Syncope, Multiple falls, multifactorial secondary to orthostatic hypotension, peripheral neuropathy from diabetes, autonomic dysfunction from diabetes #Orthostatic Hypotension, component of hypovolemia superimposed on likely autonomic dysfunction from diabetes #Acute Encephalopathy, Likely multifactorial, metabolic vs Hx of CVA vs new Alzheimer's dementia #Elevated Troponins, representing Type II NSTEMI #RBBB #HTN #Systolic cardiomyopathy # Uncontrolled, Diabetes Mellitus 2 #Urinary retention likely secondary to neurogenic bladder #Leukocytosis #Hypokalemia Hospital course; HPI: Patient is a 68 year old male with HTN, Hyperlipidemia, DM2, Left first and second digit toe amputation who presents with his son/caregiver who gave the history. The son states he fell and hit his head in the shower prompting him to call EMS. The son states he has been experiencing "a number of falls" since 05/17/24, and he was brought in via EMS on 05/18/24 due to falling and urinary incontinence, and discharged on 05/18/24. The son states he had to "carry him around" after discharge on 05/18/24, as he was unable to walk without falling. The patient states he has only fallen "twice in the past week", and believes his balance issues are due to his amputations. He states he has amputation bandages replaced every 2 days since procedure completed by Dr. Grady. He states his foot is wrapped with bag and bandages to keep it dry while he showers, and is having no current pain from the site. The patient states he is having some nausea and vomiting, but denies loss of consciousness, diarrhea, constipation, fever, urinary changes, headache, chest pain, shortness of breath, or appetite changes. He has no other complaints at this time. -Initial lab work done in the ER showed WBC 13.8, hemoglobin 15.5, platelet 274, sodium 137, potassium 4.2, chloride 101, bicarb 24, BUN 22, creatinine 1.03, glucose 186, troponin 0.143, and repeated 0.99. -EKG done in the ER showed heart rate of 100 , no ST segment elevation or depression seen, no T-wave inversions seen, possible RBBB noted. -CT head done showed no acute intracranial process -Foot x-ray shows cortical erosions medial distal left first metatarsal, osteomyelitis During hospital stay patient was treated for left foot osteomyelitis secondary to diabetic foot ulcer with leukocytosis. Patient was seen by wound care and infectious disease and vascular surgery. He was treated with IV vancomycin and oral Flagyl for 8 days. Vascular surgery recommended no further surgical debridement, to follow-up in outpatient clinic setting. PICC line was placed. He was also treated for orthostatic hypotension which improved with IV fluids. During admission he had 2 falls, and subsequent brain imaging showed no acute process or trauma. Also he was treated for acute encephalopathy, likely multi factorial. His dose of Xanax was lowered to 1 mg. He also displayed signs of sundowning during stay, and short-term memory loss. Also during stay initial troponins were elevated at 0.143 and fell to 0.99, he was started on guideline directed medical therapy, and echocardiogram showed impaired LV function with a EF at 40%. Patient also had incident of urinary retention likely secondary to neurogenic bladder and found to be retaining 1000 cc, and was treated with Flomax 0.4 mg. Patient is discharged in stable condition to subacute rehab facility. Discharged with new meds aspirin 81 mg daily, Flagyl 500 mg 3 times daily, Flomax 0.4 mg, Levemir 17 units subq nightly, metoprolol 25 mg twice daily, Xanax 1 mg twice daily, lisinopril 10 mg twice daily, Lipitor 80 mg nightly, NovoLog ACHS, IV vancomycin 1500 mg. Patient is to follow-up with Dr. Brito, Dr. Grady, and [facility]. Physical exam: Vitals Signs Reviewed. General: Nontoxic, no distress, appears at stated age, morbidly obese Derm: Warm, dry, left foot dressing clean, dry, intact Head: Atraumatic, normocephalic, symmetric Eyes: EOMI, no lid lag, anicteric sclera Mouth: No lip lesion, mucus membranes moist Cardiovascular: S1S2 reg, no murmur Lungs: CTA bilateral, no rhonchi, no rales, no accessory muscle use Abdominal: Soft, nontender to palpation, no guarding, no appreciable organomegaly Ext: No gross muscle atrophy, no edema, no contractures Neuro: CN II-XI grossly intact, no focal neuro deficits Psych: Alert, oriented, appropriate affect A total of 33 minutes of time were spent preparing this complex discharge summary. Patient was discharged on 05/29/2024 at 1424. Patient Condition at Discharge: Stable Plan - Discharge Summary Discharge Rx Participant: No New Discharge Prescriptions: New Aspirin 81 mg PO DAILY tab metroNIDAZOLE [Flagyl] 500 mg PO TID #35 tab Tamsulosin [Flomax] 0.4 mg PO PC-BRKFST cap Insulin Detemir (Levemir) [Levemir] 17 unit SQ HS each Metoprolol Tartrate [Lopressor] 25 mg PO BID tab ALPRAZolam [Xanax] 1 mg PO Q12HR #1 tab lisinopriL [Zestril] 10 mg PO BID tab QUEtiapine [SEROquel] 25 mg PO HS tab Atorvastatin [Lipitor] 80 mg PO HS tab INSULIN ASPART (NovoLOG) [NovoLOG (formulary)] 0 unit SQ ACHS each Vancomycin 1,500 mg IVPB Q16H 35 Days each Continue Albuterol Inhaler [Ventolin Hfa Inhaler] 2 puff INHALATION RT-QID PRN PRN Reason: Shortness Of Breath Tobramycin 0.3% Ophth Soln [Tobrex 0.3% Ophth Soln] 2 drops BOTH EYES Q4H Discontinued ALPRAZolam [Xanax] 2 mg PO Q12H Hydrocodone/Acetaminophen [Hydrocodone/Acetaminophen 7.5-325] 1 tab PO BID Insulin Glargine,Hum.rec.anlog [Lantus Solostar Pen] 30 units SQ BID PRN PRN Reason: HIGH BLOOD SUGAR Semaglutide [Ozempic] 0.5 mg SQ MO Insulin Aspart [NovoLOG Flexpen] 1 - 30 units SQ AC-TID PRN PRN Reason: HIGH BLOOD SUGAR lisinopriL [Zestril] 2.5 mg PO DAILY #30 tab Atorvastatin [Lipitor] 20 mg PO DAILY Discharge Medication List Albuterol Inhaler [Ventolin Hfa Inhaler] 2 puff INHALATION RT-QID PRN 05/21/24 [History] Tobramycin 0.3% Ophth Soln [Tobrex 0.3% Ophth Soln] 2 drops BOTH EYES Q4H [History] ALPRAZolam [Xanax] 1 mg PO Q12HR #1 tab 05/28/24 [Rx] Aspirin 81 mg PO DAILY tab 05/28/24 [Rx] Atorvastatin [Lipitor] 80 mg PO HS tab 05/28/24 [Rx] INSULIN ASPART (NovoLOG) [NovoLOG (formulary)] 0 unit SQ ACHS each 05/28/24 [Rx] Insulin Detemir (Levemir) [Levemir] 17 unit SQ HS each 05/28/24 [Rx] Metoprolol Tartrate [Lopressor] 25 mg PO BID tab 05/28/24 [Rx] Tamsulosin [Flomax] 0.4 mg PO PC-BRKFST cap 05/28/24 [Rx] Vancomycin 1,500 mg IVPB Q16H 35 Days each 05/28/24 [Rx] lisinopriL [Zestril] 10 mg PO BID tab 05/28/24 [Rx] metroNIDAZOLE [Flagyl] 500 mg PO TID #35 tab 05/28/24 [Rx] QUEtiapine [SEROquel] 25 mg PO HS tab 05/29/24 [Rx] Follow up Appointment(s)/Referral(s): Alfred Dean MD [STAFF PHYSICIAN] - 2 Weeks [facility] Rodriguez [NON-STAFF] - 1-2 days (IV ABX) Pratik Grady MD [STAFF PHYSICIAN] - 1 Week Hailey Villegas MD [STAFF PHYSICIAN] - 1 Week Patient Instructions/Handouts: Osteomyelitis (DC) Activity/Diet/Wound Care/Special Instructions: Please see your PCP, and vascular surgeon. Please follow up with them for wound care. Also see your local coordinator. Discharge Disposition: TRANSFER TO SNF/ECF
[2024-05-29] MEDS ORDERED: QUEtiapine 25 MG TAB PO SCH (21:00)
[2024-05-29] MEDS ORDERED: VANCOMYCIN 1,750 MG in SODIUM CHLORIDE 0.9% 500 ML 500 ML IVPB SCH (22:00)
== END 2024-05-29 17:19 | DRG 280 ==
LOC: EC 08:28 → 3SCARD 12:06 → 5NMEDONC 05-24 23:05
PROVIDERS: ADMIT Internal Medicine; ATTEND Internal Medicine
PROC: 05HC33Z Insertion of Infusion Device into Left Basilic Vein, Percutaneous Approach (ICD-10-PCS; principal; 2024-05-27 08:30)
DX: I95.1 Orthostatic hypotension (principal); G93.41 Metabolic encephalopathy; I21.A1 Myocardial infarction type 2; I42.8 Other cardiomyopathies; E87.20 Acidosis, unspecified; M86.8X7 Other osteomyelitis, ankle and foot; E11.52 Type 2 diabetes mellitus with diabetic peripheral angiopathy with gangrene; I45.2 Bifascicular block; E11.51 Type 2 diabetes mellitus with diabetic peripheral angiopathy without gangrene; D72.829 Elevated white blood cell count, unspecified; E11.42 Type 2 diabetes mellitus with diabetic polyneuropathy; E11.43 Type 2 diabetes mellitus with diabetic autonomic (poly)neuropathy; E11.621 Type 2 diabetes mellitus with foot ulcer; E11.628 Type 2 diabetes mellitus with other skin complications; E11.69 Type 2 diabetes mellitus with other specified complication; E78.5 Hyperlipidemia, unspecified; E86.1 Hypovolemia; F41.9 Anxiety disorder, unspecified; I10 Essential (primary) hypertension; L97.529 Non-pressure chronic ulcer of other part of left foot with unspecified severity; R29.6 Repeated falls; S09.90XA Unspecified injury of head, initial encounter; B95.62 Methicillin resistant Staphylococcus aureus infection as the cause of diseases classified elsewhere; E87.6 Hypokalemia; L08.89 Other specified local infections of the skin and subcutaneous tissue; W19.XXXA Unspecified fall, initial encounter; Y92.009 Unspecified place in unspecified non-institutional (private) residence as the place of occurrence of the external cause; N31.9 Neuromuscular dysfunction of bladder, unspecified; Z79.4 Long term (current) use of insulin; Z79.82 Long term (current) use of aspirin; Z79.899 Other long term (current) drug therapy; G30.9 Alzheimer's disease, unspecified; F02.80 Dementia in other diseases classified elsewhere, unspecified severity, without behavioral disturbance, psychotic disturbance, mood disturbance, and anxiety; R33.8 Other retention of urine; M19.90 Unspecified osteoarthritis, unspecified site
CPT/HCPCS: 36415; 36573; 70450; 72125; 78315; 80048; 80053; 80061; 80202; 83036; 83735; 84443; 84484; 85025; 85027; 85610; 85652; 85730; 86140; 87040; 87070; 87075; 87077; 87186; 87205; 93005; 93308; 94640; 96361; 96365; 96366; 96368; 96375; 99291

== ENCOUNTER 2024-06-03 12:14 | Emergency (ER) | payer MEDICARE, OTHER ==
[2024-06-03 12:20] VITALS: TEMP 98.1
--- NOTE | 2024-06-03 13:02 | ED ---
Recheck HPI - General Chief Complaint: Recheck/Abnormal Lab/Rx Stated Complaint: pic line issues Time Seen by Provider: 06/03/24 12:26 Source: patient, RN notes reviewed Mode of arrival: wheelchair Limitations: no limitations - History of Present Illness Initial Comments: This is a 68-year-old male who presents to the emergency department for problems with his PICC line. Patient was discharged from this facility on 05/29. During that time he was diagnosed with osteomyelitis and had a PICC line placed. He is supposed to be receiving vancomycin for further treatment. However, states that the PICC line fell out, prompting him to come here today. He is unsure how it fell out or which arm it was in. Patient is overall a very poor historian. - Related Data Home Medications Medication Instructions Recorded Confirmed Albuterol Inhaler [Ventolin Hfa 2 puff INHALATION RT-QID PRN 05/21/24 05/21/24 Inhaler] Tobramycin 0.3% Ophth Soln [Tobrex 2 drops BOTH EYES Q4H 05/21/24 05/21/24 0.3% Ophth Soln] Previous Rx's Medication Instructions Recorded ALPRAZolam [Xanax] 1 mg PO Q12HR #1 tab 05/28/24 Aspirin 81 mg PO DAILY tab 05/28/24 Atorvastatin [Lipitor] 80 mg PO HS tab 05/28/24 INSULIN ASPART (NovoLOG) [NovoLOG 0 unit SQ ACHS each 05/28/24 (formulary)] Insulin Detemir (Levemir) [Levemir] 17 unit SQ HS each 05/28/24 Metoprolol Tartrate [Lopressor] 25 mg PO BID tab 05/28/24 Tamsulosin [Flomax] 0.4 mg PO PC-BRKFST cap 05/28/24 Vancomycin 1,500 mg IVPB Q16H 35 Days each 05/28/24 lisinopriL [Zestril] 10 mg PO BID tab 05/28/24 metroNIDAZOLE [Flagyl] 500 mg PO TID #35 tab 05/28/24 QUEtiapine [SEROquel] 25 mg PO HS tab 05/29/24 Allergies Allergy/AdvReac Type Severity Reaction Status Date / Time No Known Allergies Allergy Verified 06/03/24 12:19 Review of Systems ROS Statement: Those systems with pertinent positive or pertinent negative responses have been documented in the HPI. ROS Other: All systems not noted in ROS Statement are negative. 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, NEEDLE ASPIRATION LEFT EYE Q 3 MONTHS, PAIN CL[facility] Past Anesthesia/Blood Transfusion Reactions: No Reported Reaction Past Psychological History: Anxiety Smoking Status: Current every day smoker Past Alcohol Use History: None Reported Past Drug Use History: None Reported - Past Family History Mother Family Medical History: Cancer Additional Family Medical History / Comment(s): BREAST Sister(s) Family Medical History: Cancer General Exam Limitations: no limitations General appearance: alert, in no apparent distress Head exam: Present: atraumatic, normocephalic, normal inspection Respiratory exam: Present: normal lung sounds bilaterally. Absent: respiratory distress, wheezes, rales, rhonchi, stridor Cardiovascular Exam: Present: regular rate, normal rhythm, normal heart sounds. Absent: systolic murmur, diastolic murmur, rubs, gallop, clicks Neurological exam: Present: alert, oriented X3, CN II-XII intact Psychiatric exam: Present: normal affect, normal mood Skin exam: Present: warm, dry, intact, normal color. Absent: rash Course Vital Signs 06/03/24 06/03/24 12:15 15:00 Temperature 98.1 F Pulse Rate 64 82 Respiratory 20 16 Rate Blood Pressure 134/80 128/78 O2 Sat by Pulse 96 95 Oximetry Medical Decision Making - Medical Decision Making This is a 68 year old male who presents to the emergency department for problems with his PICC line. Was pt. sent in by a medical professional or institution? @ -No Did you speak to anyone other than the patient for history? @ -No Did you review nursing and triage notes? @ -Yes, and I agree, it is accurate with regards to the patient's symptoms. Were old charts reviewed? @ -No Differential Diagnosis? @ -PICC line malfunction, pulled out by patient, not secured, this is not meant to be an all-inclusive list. EKG interpreted by me (3pts min.)? @ -Not obtained X-rays interpreted by me (1pt min.)? @ -Not obtained CT interpreted by me (1pt min.)? @ -Not obtained U/S interpreted by me (1pt. min.)? @ -Not obtained What testing was considered but not performed? (CT, X-rays, U/S, labs)? Why? @ -None What meds were considered but not given? Why? @ None Did you discuss the management of the patient with other professionals? @ -[facility] nursing staff, who advised that if we put in the order they would send someone down to replace his PICC line. Did you reconcile home meds? @ -No Was smoking cessation discussed for >3mins.? @ -No Was critical care preformed (if so, how long)? @ -No Were there social determinants of health that impacted care today? How? (H omelessness, low income, unemployed, alcoholism, drug addiction, transportation, low edu. Level, literacy, decrease access to med. care, snf, rehab)? @ -No Was there de-escalation of care discussed even if they declined? (Discuss DNR or withdrawal of care, Hospice)? @ -No What co-morbidities impacted this encounter? (DM, HTN, Smoking, COPD, CAD, Cancer, CVA, Hep., AIDS, mental health diagnosis, sleep apnea, morbid obesity)? @ -Osteomyelitis Was patient admitted / discharged? @ -Discharged. Patient's PICC line reportedly fell out. It is not clear how this happened and the patient is a poor historian. [facility] was contacted. They advised that if we put in the order they would send someone down to replace the patient's PICC line. Order was placed and the PICC line was replaced at bedside by [facility] nursing team. Patient discharged home in stable condition. Case discussed with ED attending Dr. Emery. Return precautions reviewed in depth, the patient is instructed to return to the emergency department with any new, worsening, or concerning symptoms. Patient verbalized understanding. Undiagnosed new problem with uncertain prognosis? @ -None Drug Therapy requiring intensive monitoring for toxicity (Heparin, Nitro, Insulin, Cardizem)? @ -None Were any procedures done? @ -None Diagnosis/symptom? @ -Status post PICC line placement Acute, or Chronic, or Acute on Chronic? @ -Acute Uncomplicated (without systemic symptoms) or Complicated (systemic symptoms)? @ -Uncomplicated Side effects of treatment? @ -None Exacerbation, Progression, or Severe Exacerbation] @ -Not applicable Poses a threat to life or bodily function? @ -No Disposition Clinical Impression: S/P PICC central line placement Disposition: HOME SELF-CARE Condition: Good Instructions (If sedation given, give patient instructions): How to Care for Your PICC (Peripherally Inserted Central Catheter) (ED), How to Flush Your PICC (Peripherally Inserted Central Catheter) (ED), PICC (Peripherally Inserted Central Catheter) (DC) Additional Instructions: Return to the emergency department with any new, worsening, or concerning symptoms. Follow up with your primary care provider in 1-2 days. Is patient prescribed a controlled substance at d/c from ED?: No Referrals: Padma Gomez MD [STAFF PHYSICIAN] - 1-2 days Time of Disposition: 14:54
[2024-06-03 15:04] VITALS: BP 128/78; PULSE 82; RESP 16
== END 2024-06-03 15:27 | disposition home or self-care (01) ==
LOC: CATHCVL 12:14
CPT/HCPCS: 36573; 99283

== ENCOUNTER 2024-06-13 18:58 | Inpatient (IN) | payer OTHER ==
--- NOTE | 2024-06-13 19:13 | ED ---
Altered Mental Status HPI - General Stated Complaint: Altered level of consciousness (ALC) Time Seen by Provider: 06/13/24 19:10 Source: RN notes reviewed, old records reviewed Mode of arrival: ambulatory Limitations: no limitations - History of Present Illness Initial Comments: This is a 68-year-old male to the ER for evaluation patient presents today for evaluation regards to fever altered mental status weakness MD Complaint: altered mental status (Fever), confusion, decreased responsiveness, weakness -: days(s) Severity: severe Consistency of Symptoms: getting worse Context: recent fever Associated Symptoms: denies other symptoms Treatments Prior to Arrival: IV fluid, oxygen - Related Data Home Medications Medication Instructions Recorded Confirmed Albuterol Inhaler [Ventolin Hfa 3 puff INHALATION RT-Q6H PRN 05/21/24 06/13/24 Inhaler] 0.9 % Sodium Chloride [Sodium 10 ml IV Q16H 06/13/24 06/13/24 Chloride Flush] INSULIN ASPART (NovoLOG) [NovoLOG See Protocol SQ ACHS 06/13/24 06/13/24 (formulary)] Metoprolol Tartrate [Lopressor] 25 mg PO Q12H 06/13/24 06/13/24 Nicotine 21Mg/24Hr Patch [Habitrol] 1 patch TRANSDERM DAILY 06/13/24 06/13/24 Tamsulosin [Flomax] 0.4 mg PO HS 06/13/24 06/13/24 lisinopriL [Zestril] 20 mg PO DAILY 06/13/24 06/13/24 Previous Rx's Medication Instructions Recorded Aspirin 81 mg PO DAILY tab 05/28/24 Insulin Detemir (Levemir) [Levemir] 17 unit SQ HS each 05/28/24 metroNIDAZOLE [Flagyl] 500 mg PO TID #35 tab 05/28/24 Apixaban Initiation Dose--VTE 10 mg PO BID #10 tab 06/18/24 [Eliquis Initiation Dosing for VTE Treatment] Apixaban [Eliquis] 5 mg PO BID #60 tab 06/18/24 Atorvastatin [Lipitor] 80 mg PO HS #30 tab 06/18/24 DAPTOmycin [Cubicin] 650 mg IV DAILY #21 each 06/18/24 Furosemide [Lasix] 20 mg PO DAILY #14 tab 06/18/24 ALPRAZolam [Xanax XR] 1 mg PO BID #1 tab 10/23/24 Dapagliflozin Propanediol [Farxiga] 10 mg PO DAILY #0 tab 06/19/24 Spironolactone [Aldactone] 25 mg PO DAILY #7 tablet 06/19/24 Allergies Allergy/AdvReac Type Severity Reaction Status Date / Time No Known Allergies Allergy Verified 06/13/24 20:54 Review of Systems ROS Statement: Those systems with pertinent positive or pertinent negative responses have been documented in the HPI. ROS Other: All systems not noted in ROS Statement are negative. 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, NEEDLE ASPIRATION LEFT EYE Q 3 MONTHS, [facility] Past Anesthesia/Blood Transfusion Reactions: No Reported Reaction Past Psychological History: Anxiety Smoking Status: Current every day smoker Past Alcohol Use History: None Reported Past Drug Use History: None Reported - Past Family History Mother Family Medical History: Cancer Additional Family Medical History / Comment(s): BREAST Sister(s) Family Medical History: Cancer General Exam General appearance: alert, anxious, obtunded Head exam: Present: atraumatic, normocephalic, normal inspection Eye exam: Present: normal appearance, PERRL, EOMI. Absent: scleral icterus, conjunctival injection, periorbital swelling ENT exam: Present: normal exam, mucous membranes moist Neck exam: Present: normal inspection. Absent: tenderness, meningismus, lymphadenopathy Respiratory exam: Present: normal lung sounds bilaterally. Absent: respiratory distress, wheezes, rales, rhonchi, stridor Cardiovascular Exam: Present: normal rhythm, tachycardia, normal heart sounds. Absent: systolic murmur, diastolic murmur, rubs, gallop, clicks GI/Abdominal exam: Present: soft, normal bowel sounds. Absent: distended, tenderness, guarding, rebound, rigid Extremities exam: Present: normal inspection, full ROM, normal capillary refill. Absent: tenderness, pedal edema, joint swelling, calf tenderness Back exam: Present: normal inspection Neurological exam: Present: alert, oriented X3, CN II-XII intact Psychiatric exam: Present: normal affect, normal mood Skin exam: Present: warm, dry, intact, normal color. Absent: rash Course Vital Signs 06/13/24 06/13/24 06/14/24 19:16 22:20 02:53 Temperature 100.3 F H 97.8 F Pulse Rate 110 H 93 74 Pulse Rate [ Pulse Oximetery ] Respiratory 22 18 18 Rate Blood Pressure 131/84 122/73 110/70 Blood Pressure [Left Arm Sitting] O2 Sat by Pulse 93 L 96 96 Oximetry Fraction of Inspired Oxygen (FIO2) 06/14/24 06/14/24 06/14/24 07:00 09:26 10:26 Temperature Pulse Rate 88 109 H Pulse Rate [ Pulse Oximetery ] Respiratory 18 29 H Rate Blood Pressure 130/68 127/78 Blood Pressure [Left Arm Sitting] O2 Sat by Pulse 92 L 91 L 92 L Oximetry Fraction of Inspired Oxygen (FIO2) 06/14/24 06/14/24 06/14/24 12:45 12:50 13:25 Temperature Pulse Rate 102 H 102 H Pulse Rate [ Pulse Oximetery ] Respiratory 29 H 20 Rate Blood Pressure 156/94 156/94 Blood Pressure [Left Arm Sitting] O2 Sat by Pulse 90 L 88 L Oximetry Fraction of 50 Inspired Oxygen (FIO2) 06/14/24 06/14/24 06/14/24 13:30 13:48 14:00 Temperature Pulse Rate 102 H 103 H Pulse Rate [ Pulse Oximetery ] Respiratory 30 H 24 Rate Blood Pressure 87/48 102/52 Blood Pressure [Left Arm Sitting] O2 Sat by Pulse 94 L 96 Oximetry Fraction of 50 Inspired Oxygen (FIO2) 06/14/24 06/14/24 06/14/24 14:15 14:31 14:53 Temperature Pulse Rate 96 88 Pulse Rate [ Pulse Oximetery ] Respiratory 32 H 32 H Rate Blood Pressure 96/51 96/51 Blood Pressure [Left Arm Sitting] O2 Sat by Pulse 91 L 96 Oximetry Fraction of 55 Inspired Oxygen (FIO2) 06/14/24 06/14/24 06/14/24 15:00 16:00 16:57 Temperature Pulse Rate 89 92 93 Pulse Rate [ Pulse Oximetery ] Respiratory 28 H 29 H 32 H Rate Blood Pressure 103/70 135/78 142/78 Blood Pressure [Left Arm Sitting] O2 Sat by Pulse 98 97 97 Oximetry Fraction of Inspired Oxygen (FIO2) 06/14/24 06/14/24 06/14/24 17:00 17:02 18:00 Temperature Pulse Rate 93 94 Pulse Rate [ Pulse Oximetery ] Respiratory 30 H 18 Rate Blood Pressure 142/78 148/86 Blood Pressure [Left Arm Sitting] O2 Sat by Pulse 97 100 Oximetry Fraction of 55 Inspired Oxygen (FIO2) 06/14/24 06/14/24 19:30 19:32 Temperature 100.8 F H Pulse Rate 93 Pulse Rate [ 95 Pulse Oximetery ] Respiratory 32 H 29 H Rate Blood Pressure 141/78 Blood Pressure 149/88 [Left Arm Sitting] O2 Sat by Pulse 99 99 Oximetry Fraction of 55 Inspired Oxygen (FIO2) - Reevaluation(s) Reevaluation #1: 06/13/24 19:36 Medical records reviewed Reevaluation #2: 06/13/24 20:13 Patient has no real improvement in symptoms here in the ER Reevaluation #3: 06/13/24 20:13 Informed of results and questions answered Reevaluation #4: Was pt. sent in by a medical professional or institution (, PA, ACCOUNTANT SUPERVISOR, urgent care, hospital, or care home...) When possible be specific @ -no Did you speak to anyone other than the patient for history (EMS, parent, family, police, friend...)? What history was obtained from this source @ -no Did you review nursing and triage notes (agree or disagree)? Why? @ -agree Are old charts reviewed (outside hosp., previous admission, EMS record, old EKG, old radiological studies, urgent care reports/EKG's, care home records)? Report findings @ -yes Differential Diagnosis (chest pain, altered mental status, abdominal pain women, abdominal pain men, vaginal bleeding, weakness, fever, dyspnea, syncope, headach e, dizziness, GI bleed, back pain, seizure, CVA, palpatations, mental health, musculoskeletal)? @ -prior EKG interpreted by me (3pts min.). @ -yes X-rays interpreted by me (1pt min.). @ -yes concern for osteomyelitis CT interpreted by me (1pt min.). @ -no U/S interpreted by me (1pt. min.). @ -no What testing was considered but not performed or refused? (CT, X-rays, U/S, labs)? Why? @ -none What meds were considered but not given or refused? Why? @ -none Did you discuss the management of the patient with other professionals (professionals i.e. , PA, ACCOUNTANT SUPERVISOR, lab, RT, psych nurse, home health care social worker, manager diversity, teacher, major gifts officer, pillowcase cutter)? Give summary @ -no Was smoking cessation discussed for >3mins.? @ -no Was critical care preformed (if so, how long)? @ -yes31 Were there social determinants of health that impacted care today? How? (Homelessness, low income, unemployed, alcoholism, drug addiction, transportation, low edu. Level, literacy, decrease access to med. care, skilled nursing, rehab)? @ -none Was there de-escalation of care discussed even if they declined (Discuss DNR or withdrawal of care, Hospice)? DNR status @ -no What co-morbidities impacted this encounter? (DM, HTN, Smoking, COPD, CAD, Cancer, CVA, ARF, Chemo, Hep., AIDS, mental health diagnosis, sleep apnea, morb id obesity)? @ -none Was patient admitted / discharged? Hospital course, mention meds given and rou te, prescriptions, significant lab abnormalities, going to OR and other pertinent info. @ - 68 male to the ER for evaluation patient will be admitted for fever concern for bacteremia with fever and altered mental status osteomyelitis Admitted fever with bacteremia osteomyelitis Undiagnosed new problem with uncertain prognosis? @ -no Drug Therapy requiring intensive monitoring for toxicity (Heparin, Nitro, Insulin, Cardizem)? @ -no Were any procedures done? @ -no Diagnosis/symptom? @ - Acute, or Chronic, or Acute on Chronic? @ -Acute Uncomplicated (without systemic symptoms) or Complicated (systemic symptoms)? @ -Complicated Side effects of treatment? @ -no Exacerbation, Progression, or Severe Exacerbation? @ -exacerbation Poses a threat to life or bodily function? How? (Chest pain, [place], [place], pneumonia, PE, COPD, DKA, ARF, appy, cholecystitis, CVA, Diverticulitis, Homicidal, Suici travis, threat to staff... and all critical care pts) @ -yes Reevaluation #5: Differential Fever: Pneumonia, viral URI, endocarditis, myocarditis, pericarditis, otitis, sinusi tis, peritonsillar Abscess, retropharyngeal Abscess, epiglottitis, peritonitis, appendicitis, Sandra cystitis, diverticulitis, hepatitis, colitis, UTI, PID, TOA, pyelonephritis, prostatitis, epididymitis, meningitis, encephalitis, pulmonary embolism, CVA, thyroid storm, pancreatitis, adrenal crisis, cavernous sinus thrombosis, this is not meant to be an all-inclusive list. Differential Altered Mental Status: Hypoglycemia, DKA, hypercapnia, ETOH, overdose, CO poisoning, trauma, myxedema coma, HTN encephalopathy, infection, encephalitis, psychosis, intercranial hemorrhage, hepatic encephalopathy, meningitis, CVA, this is not meant to be an all-inclusive list - Consultations Consultation #1: Spoke with [facility] who agrees to admit this patient Medical Decision Making - Medical Decision Making 68 male to the ER for evaluation patient will be admitted for fever concern for bacteremia with fever and altered mental status osteomyelitis - Lab Data Result diagrams: 06/17/24 05:18 06/18/24 07:50 Lab Results 06/13/24 06/13/24 06/13/24 Range/Units 19:48 19:48 19:48 WBC 7.9 (3.8-10.6) k/uL RBC 5.43 (4.30-5.90) m/uL Hgb 16.5 (13.0-17.5) gm/dL Hct 49.0 (39.0-53.0) % MCV 90.2 (80.0-100.0) fL MCH 30.4 (25.0-35.0) pg MCHC 33.7 (31.0-37.0) g/dL RDW 14.2 (11.5-15.5) % Plt Count 197 (150-450) k/uL MPV 9.0 Neutrophils % 85 % Lymphocytes % 7 % Monocytes % 7 % Eosinophils % 0 % Basophils % 0 % Neutrophils # 6.7 (1.3-7.7) k/uL Lymphocytes # 0.6 L (1.0-4.8) k/uL Monocytes # 0.5 (0-1.0) k/uL Eosinophils # 0.0 (0-0.7) k/uL Basophils # 0.0 (0-0.2) k/uL PT 12.1 (10.0-12.5) sec INR 1.1 (<1.2) APTT 28.4 (22.0-30.0) sec Sodium 139 (137-145) mmol/L Potassium 4.5 (3.5-5.1) mmol/L Chloride 103 (98-107) mmol/L Carbon Dioxide 28 (22-30) mmol/L Anion Gap 8 mmol/L BUN 18 (9-20) mg/dL Creatinine 1.46 H (0.66-1.25) mg/dL Est GFR (CKD-EPI)AfAm 56 (>60 ml/min/1.73 sqM) Est GFR (CKD-EPI)NonAf 49 (>60 ml/min/1.73 sqM) Glucose 210 H (74-99) mg/dL Plasma Lactic Acid Hossein (0.7-2.0) mmol/L Calcium 8.9 (8.4-10.2) mg/dL Phosphorus 3.3 (2.5-4.5) mg/dL Magnesium 1.9 (1.6-2.3) mg/dL Total Bilirubin 0.7 (0.2-1.3) mg/dL AST 42 (17-59) U/L ALT 19 (4-49) U/L Alkaline Phosphatase 128 H (38-126) U/L Ammonia (<30) umol/L Troponin I (0.000-0.034) ng/mL NT-Pro-B Natriuret Pep 77150 pg/mL Total Protein 7.2 (6.3-8.2) g/dL Albumin 4.2 (3.5-5.0) g/dL Lipase 45 (23-300) U/L TSH 2.690 (0.465-4.680) mIU/L Acetone, Qual Negative (Negative) 06/13/24 06/13/24 Range/Units 19:48 19:48 WBC (3.8-10.6) k/uL RBC (4.30-5.90) m/uL Hgb (13.0-17.5) gm/dL Hct (39.0-53.0) % MCV (80.0-100.0) fL MCH (25.0-35.0) pg MCHC (31.0-37.0) g/dL RDW (11.5-15.5) % Plt Count (150-450) k/uL MPV Neutrophils % % Lymphocytes % % Monocytes % % Eosinophils % % Basophils % % Neutrophils # (1.3-7.7) k/uL Lymphocytes # (1.0-4.8) k/uL Monocytes # (0-1.0) k/uL Eosinophils # (0-0.7) k/uL Basophils # (0-0.2) k/uL PT (10.0-12.5) sec INR (<1.2) APTT (22.0-30.0) sec Sodium (137-145) mmol/L Potassium (3.5-5.1) mmol/L Chloride (98-107) mmol/L Carbon Dioxide (22-30) mmol/L Anion Gap mmol/L BUN (9-20) mg/dL Creatinine (0.66-1.25) mg/dL Est GFR (CKD-EPI)AfAm (>60 ml/min/1.73 sqM) Est GFR (CKD-EPI)NonAf (>60 ml/min/1.73 sqM) Glucose (74-99) mg/dL Plasma Lactic Acid Hossein 1.6 (0.7-2.0) mmol/L Calcium (8.4-10.2) mg/dL Phosphorus (2.5-4.5) mg/dL Magnesium (1.6-2.3) mg/dL Total Bilirubin (0.2-1.3) mg/dL AST (17-59) U/L ALT (4-49) U/L Alkaline Phosphatase (38-126) U/L Ammonia <9 (<30) umol/L Troponin I 2.240 H* (0.000-0.034) ng/mL NT-Pro-B Natriuret Pep pg/mL Total Protein (6.3-8.2) g/dL Albumin (3.5-5.0) g/dL Lipase (23-300) U/L TSH (0.465-4.680) mIU/L Acetone, Qual (Negative) - EKG Data -: EKG Interpreted by Me (EKG is sinus tachycardia 108 DC 150 QRS 162 QTc 457) - Radiology Data Radiology results: report reviewed (X-rays negative for acute disease), image reviewed Disposition Clinical Impression: Osteomyelitis of left foot, Diabetic foot infection, Diabetic foot ulcer, Altered mental status, Fever Disposition: ADMITTED IP TO THIS HOSP Condition: Stable Is patient prescribed a controlled substance at d/c from ED?: No Time of Disposition: 20:10
[2024-06-13] MEDS: ACETAMINOPHEN IV (For NPO) 1,000 MG in EMPTY BAG 1 BAG IVPB STA (20:04)
[2024-06-13] MEDS: SODIUM CHLORIDE 0.9% 1,000 ML IV STA (20:04)
[2024-06-13 20:06] LABS: Basophils % (A) 0 %; Eosinophils % (A) 0 %; HGB 16.5 gm/dL (13.0-17.5); Lymphocytes # (A) 0.6 k/uL (1.0-4.8); Lymphocytes % (A) 7 %; MCH 30.4 pg (25.0-35.0); MCHC 33.7 g/dL (31.0-37.0); MCV 90.2 fL (80.0-100.0); Monocytes # (A) 0.5 k/uL (0-1.0); Monocytes % (A) 7 %; Neutrophils # (A) 6.7 k/uL (1.3-7.7); Neutrophils % (A) 85 %; Platelet Count 197 k/uL (150-450); RBC 5.43 m/uL (4.30-5.90); RDW 14.2 % (11.5-15.5); WBC 7.9 k/uL (3.8-10.6)
[2024-06-13] MEDS ORDERED: ACETAMINOPHEN TAB 325 MG TAB PO PRN (20:13)
[2024-06-13] MEDS ORDERED: NALOXONE 0.4 MG/ML 1 ML VIAL IV PRN (20:13)
[2024-06-13 20:16] LABS: INR 1.1 (<1.2); Partial Thromboplastin Time 28.4 sec (22.0-30.0); Prothrombin Time 12.1 sec (10.0-12.5)
--- NOTE | 2024-06-13 20:36 | XR ---
EXAMINATION TYPE: XR chest 1V portable DATE OF EXAM: 06/13/2024 8:04 PM CLINICAL INDICATION: Male, 68 years old with history of weak; COMPARISON: Chest radiographs from 05/18/2024 TECHNIQUE: XR chest 1V portable Frontal view of the chest. FINDINGS: Lungs/Pleura: There is no evidence of pleural effusion, focal consolidation, or pneumothorax. Pulmonary vascularity: Unremarkable. Heart/mediastinum: Cardiomediastinal silhouette is unremarkable. Musculoskeletal: No acute osseous pathology. IMPRESSION: No acute cardiopulmonary disease/process. [facility] Christina Gamble, , 06/13/2024 8:34 PM
[2024-06-13 20:43] LABS: Lactic Acid, Venous 1.6 mmol/L (0.7-2.0)
[2024-06-13 20:45] LABS: ALT 19 U/L (4-49); AST 42 U/L (17-59); African American GFR (CKD) 56 (>60 ml/min/1.73 sqM); Albumin 4.2 g/dL (3.5-5.0); Alkaline Phosphatase 128 U/L (38-126); Anion Gap 8 mmol/L; Blood Urea Nitrogen 18 mg/dL (9-20); Calcium 8.9 mg/dL (8.4-10.2); Carbon Dioxide 28 mmol/L (22-30); Chloride 103 mmol/L (98-107); Glucose 210 mg/dL (74-99); Lipase 45 U/L (23-300); Magnesium 1.9 mg/dL (1.6-2.3); Non-African American GFR(CKD) 49 (>60 ml/min/1.73 sqM); Phosphorus 3.3 mg/dL (2.5-4.5); Potassium 4.5 mmol/L (3.5-5.1); Sodium 139 mmol/L (137-145); Total Bilirubin 0.7 mg/dL (0.2-1.3); Total Protein 7.2 g/dL (6.3-8.2)
[2024-06-13 20:53] LABS: VBG PH 7.44 (7.31-7.41)
[2024-06-13 20:54] LABS: NT-Pro-B-Type Natriuretic Pept 14200 pg/mL
[2024-06-13] MEDS ORDERED: HEPARIN SODIUM 1,000 UN/ML (10ML VL) IV PRN (21:20)
[2024-06-13] MEDS: IBUPROFEN IV 800 MG in SODIUM CHLORIDE 0.9% 250 ML IV ONE (21:47)
[2024-06-13] MEDS: SODIUM CHLORIDE 0.9% 500 ML 500 ML IV SCH (21:48)
[2024-06-13] MEDS: PIPERACILLIN-TAZOBACTAM 3.375 GM in SODIUM CHLORIDE 0.9% 100 ML IVPB STA (22:11)
[2024-06-13] MEDS: HEPARIN SOD,PORK IN 0.45% NACL 25,000 UNIT in 0.45% NACL 1 250ML.BAG IV SCH (22:25)
[2024-06-13] MEDS: HEPARIN SODIUM 1,000 UN/ML (10ML VL) IV ONE (22:31)
[2024-06-13] MEDS: SODIUM CHLORIDE 0.9% 1,000 ML IV SCH (22:34)
[2024-06-13] MEDS: CLINDAMYCIN 900 MG in DEXTROSE 5% IN WATER 50 ML IVPB STA (22:39)
[2024-06-13] MEDS: ASPIRIN 81 MG PO SCH (22:42)
[2024-06-14] MEDS: PIPERACILLIN-TAZOBACTAM 3.375 GM in SODIUM CHLORIDE 0.9% 100 ML IVPB SCH (00:27)
[2024-06-14 03:20] LABS: Appearance,Urine Clear (Clear); Bacteria,Urine Rare /hpf; Bilirubin,Urine Negative (Negative); Blood,Urine Moderate (Negative); Budding Yeast,Urine Rare /hpf; Color,Urine Yellow; Glucose,Urine (UA) 1+ (Negative); Hyaline Casts,Urine 8 /lpf (0-2); Ketones,Urine Negative (Negative); Leukocyte Esterase,Urine Negative (Negative); Mucus,Urine Occasional /hpf; Nitrite,Urine Negative (Negative); PH, Urine 5.5 (5.0-8.0); Protein,Urine 2+ (Negative); RBC,Urine 12 /hpf (0-5); Squamous Epithelial Cell,Urine <1 /hpf (0-4); Urobilinogen,Urine <2.0 mg/dL (<2.0); WBC,Urine 2 /hpf (0-5)
[2024-06-14] MEDS: CLINDAMYCIN 600 MG in DEXTROSE 5% IN WATER 50 ML IVPB SCH (03:56)
[2024-06-14] MEDS ORDERED: ALBUTEROL HFA INHALER INHALATION PRN (08:54)
[2024-06-14] MEDS: METOPROLOL TARTRATE 25 MG TAB PO SCH (09:57)
[2024-06-14] MEDS: lisinopriL 20 MG TAB PO SCH (09:57)
[2024-06-14] MEDS: ALPRAZolam 0.5 MG TAB PO SCH (09:57)
[2024-06-14] MEDS: PANTOPRAZOLE 40 MG/10 ML VIAL IV SCH (09:58)
[2024-06-14] MEDS: NICOTINE 21MG/24HR PATCH TRANSDERM SCH (09:58)
[2024-06-14 10:36] LABS: Basophils # (A) 0.02 X 10*3/uL (0.00-0.10); Basophils % (A) 0.3 %; Eosinophils # (A) 0.01 X 10*3/uL (0.04-0.35); Eosinophils % (A) 0.1 %; HCT 39.2 % (39.6-50.0); HGB 12.7 g/dL (13.0-17.0); Lymphocytes # (A) 0.93 X 10*3/uL (0.90-5.00); Lymphocytes % (A) 13.8 %; MCHC 32.4 g/dL (32.0-37.0); MCV 92.5 FL (80.0-97.0); Mean Platelet Volume 11.9 FL (9.5-12.2); Monocytes # (A) 0.62 X 10*3/uL (0.20-1.00); Monocytes % (A) 9.2 %; NRBC Per 100 WBC 0 X 10*3/uL (0.00-0.01); Neutrophils # (A) 5.14 X 10*3/uL (1.80-7.70); Neutrophils % (A) 76.3 %; Platelet Count 179 X 10*3/uL (140-440); RBC 4.24 X 10*6/uL (4.40-5.60); RDW 14.2 % (11.5-14.5); WBC 6.74 X 10*3/uL (4.50-10.00)
[2024-06-14 11:12] LABS: ALT 15 U/L (10-49); AST 36 U/L (14-35); Albumin/Globulin Ratio 1.43 Ratio (1.60-3.17); Alkaline Phosphatase 105 U/L (41-126); BUN/Creat Ratio 11.67 Ratio (12.00-20.00); Blood Urea Nitrogen 17.5 mg/dL (9.0-27.0); Calcium 7.5 mg/dL (8.7-10.3); Chloride 107 mmol/L (96-109); Globulin 2.1 g/dL (1.6-3.3); Glucose 190 mg/dL (70-110); Magnesium 1.8 mg/dL (1.5-2.4); Potassium 4.1 mmol/L (3.5-5.5); Sodium 141 mmol/L (135-145); Total Bilirubin 0.2 mg/dL (0.3-1.2); Total Protein 5.1 g/dL (6.2-8.2)
--- NOTE | 2024-06-14 11:24 | P.CRDCN ---
History of Present Illness History of present illness: HISTORY OF PRESENT ILLNESS: This is a 68-year-old male with a past medical history significant for dementia, carotid stenosis, hypertension, diabetes, TIA, nicotine dependence, left toe a mputations, and left foot wound. Patient follows in the office with Dr. Frias. We have been asked to see the patient in consultation for elevated troponins. Patient examined at the bedside in the emergency room. Patient was brought to the hospital from [facility]. According to the ER physician note, the patient was brought into the hospital for altered mental status. The patient states he is unsure of why he was brought to the hospital. The patient's nurse this morning reports that she was told the patient was having chest pain when he came in. At the time of examination, the patient denies having any chest pain or pressure. He denies any shortness of breath. He does report feeling confused this morning. He was found to have elevated troponins and was started on IV heparin. It is noted that the patient was hospitalized at the end of April 2024 due to syncope from orthostatic hypotension, acute encephalopathy, and left foot osteomyelitis DIAGNOSTICS: - EKG reveals sinus tachycardia with right bundle branch block. - Chest xray negative for acute process - Laboratory data: WBC 6.74. Hemoglobin 12.7. Platelet count 179. Sodium 141. Potassium 4.1. BUN 17. Creatinine 1.5. Magnesium 1.8. proBNP 14,200. Troponin 2.240. 1.710. - Current home cardiac medications include lisinopril 20 mg daily, metoprolol tartrate 25 mg twice a day, aspirin 81 mg daily, Lipitor 80 mg at night - Limited echocardiogram performed in April 2024 revealed ejection fraction 40% with global hypokinesis, mild MR - Cardiac catheterization history: unknown REVIEW OF SYSTEMS: At the time of my exam: CONSTITUTIONAL: Denies fever or chills. HEENT: Denies blurred vision, vision changes, or eye pain. Denies hemoptysis CARDIOVASCULAR: Denies chest pain. Denies orthopnea. Denies PND. Denies palpitations RESPIRATORY: Denies shortness of breath. GASTROINTESTINAL: Denies abdominal pain. Denies nausea or vomiting. HEMATOLOGIC: Denies bleeding disorders. GENITOURINARY: Denies any blood in urine. SKIN: Denies pruitis. Denies rash. PHYSICAL EXAM: VITAL SIGNS: Reviewed. GENERAL: Well-developed in no acute distress. HEENT: Head is normocephalic. Pupils are equal, round. Sclerae anicteric. Mucous membranes of the mouth are moist. Neck supple. No JVD or thyromegaly LUNGS: Respirations even and unlabored. Lungs essentially clear to auscultation bilaterally. HEART: Regular rate and rhythm. S1 and S2 heard. ABDOMEN: Soft. Nondistended. Nontender. EXTREMITIES: Normal range of motion. No clubbing or cyanosis. Peripheral pulses intact. Left wound foot with dressing noted. NEUROLOGIC: Awake and alert. Patient confused. ASSESSMENT: Altered mental status Left foot wound with possible osteomyelitis, recently hospitalized 04/2024 History of left big toe and second toe amputation Non-STEMI Cardiomyopathy, EF 40%, ischemic versus nonischemic, repeat echo pending Acute kidney injury 100% left internal carotid artery stenosis, follows with vascular surgery History of orthostatic hypotension and dysautonomia Hypertension Hyperlipidemia Diabetes History of TIA Nicotine dependence PLAN: Obtain limited echo to assess LV function and assess for wall motion abnormal ities Continue IV heparin Resume home cardiac medications Continue aspirin 81 mg daily and atorvastatin 80 mg at night Infectious disease consulted for left foot wound. Await evaluation. Consider cardiac catheterization when patient is medically stable due to elevated troponins and cardiomyopathy noted on echocardiogram last month Smoking cessation recommended. Patient to be referred to [place] quit line upon discharge. Further recommendations pending patient course Nurse practitioner note has been reviewed by physician. Signing provider agrees with the documented findings, assessment, and plan of care documented by MAIL PROCESSOR as a scribe. 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, NEEDLE ASPIRATION LEFT EYE Q 3 MONTHS, PAIN CLINIC Past Anesthesia/Blood Transfusion Reactions: No Reported Reaction Past Psychological History: Anxiety Smoking Status: Current every day smoker Past Alcohol Use History: None Reported Past Drug Use History: None Reported - Past Family History Mother Family Medical History: Cancer Additional Family Medical History / Comment(s): BREAST Sister(s) Family Medical History: Cancer Medications and Allergies Home Medications Medication Instructions Recorded Confirmed Type Albuterol Inhaler [Ventolin Hfa 3 puff INHALATION RT-Q6H PRN 05/21/24 06/13/24 History Inhaler] Aspirin 81 mg PO DAILY tab 05/28/24 06/13/24 Rx Atorvastatin [Lipitor] 80 mg PO HS tab 05/28/24 06/13/24 Rx Insulin Detemir (Levemir) [Levemir] 17 unit SQ HS each 05/28/24 06/13/24 Rx Vancomycin 1,500 mg IVPB Q16H 35 Days each 05/28/24 06/13/24 Rx metroNIDAZOLE [Flagyl] 500 mg PO TID #35 tab 05/28/24 06/13/24 Rx 0.9 % Sodium Chloride [Sodium 10 ml IV Q16H 06/13/24 06/13/24 History Chloride Flush] ALPRAZolam [Xanax XR] 1 mg PO BID 06/13/24 06/13/24 History INSULIN ASPART (NovoLOG) [NovoLOG See Protocol SQ ACHS 06/13/24 06/13/24 History (formulary)] Metoprolol Tartrate [Lopressor] 25 mg PO Q12H 06/13/24 06/13/24 History Nicotine 21Mg/24Hr Patch [Habitrol] 1 patch TRANSDERM DAILY 06/13/24 06/13/24 History Tamsulosin [Flomax] 0.4 mg PO HS 06/13/24 06/13/24 History lisinopriL [Zestril] 20 mg PO DAILY 06/13/24 06/13/24 History Allergies Allergy/AdvReac Type Severity Reaction Status Date / Time No Known Allergies Allergy Verified 06/13/24 20:54 Physical Exam Vitals: Vital Signs Temp Pulse Resp BP Pulse Ox 06/14/24 10:26 109 H 29 H 127/78 92 L 06/14/24 07:00 88 18 130/68 92 L 06/14/24 02:53 74 18 110/70 96 06/13/24 22:20 97.8 F 93 18 122/73 96 06/13/24 19:16 100.3 F H 110 H 22 131/84 93 L Intake and Output 06/13/24 06/14/24 06/14/24 22:59 06:59 14:59 Intake Total 74.341 0 Output Total 700 Balance -625.659 0 Intake: Intake, IV Titration 74.341 0 Amount Heparin Sod,Pork in 0.45% 74.341 0 NaCl 25,000 unit In 0.45 % NaCl 1 250ml.bag @ 8. 819 UNITS/KG/HR 10.001 mls/hr IV .Q24H [facility] Rx#: [id number] Output: Urine 700 Straight 700 Other: Weight 113.398 kg Results 06/14/24 04:28 06/13/24 19:48 Cardiac Enzymes 06/13/24 06/13/24 06/14/24 Range/Units 19:48 19:48 07:48 AST 42 (17-59) U/L Troponin I 2.240 H* 1.710 H* (0.000-0.034) ng/mL Coagulation 06/13/24 06/14/24 Range/Units 19:48 04:28 PT 12.1 (10.0-12.5) sec APTT 28.4 180.0 H* (22.0-30.0) sec CBC 06/13/24 06/14/24 Range/Units 19:48 04:28 WBC 7.9 6.74 (3.8-10.6) k/uL RBC 5.43 4.24 L (4.30-5.90) m/uL Hgb 16.5 12.7 L (13.0-17.5) gm/dL Hct 49.0 39.2 L (39.0-53.0) % Plt Count 197 179 (150-450) k/uL Comprehensive Metabolic Panel 06/13/24 Range/Units 19:48 Sodium 139 (137-145) mmol/L Potassium 4.5 (3.5-5.1) mmol/L Chloride 103 (98-107) mmol/L Carbon Dioxide 28 (22-30) mmol/L BUN 18 (9-20) mg/dL Creatinine 1.46 H (0.66-1.25) mg/dL Glucose 210 H (74-99) mg/dL Calcium 8.9 (8.4-10.2) mg/dL AST 42 (17-59) U/L ALT 19 (4-49) U/L Alkaline Phosphatase 128 H (38-126) U/L Total Protein 7.2 (6.3-8.2) g/dL Albumin 4.2 (3.5-5.0) g/dL Current Medications Generic Name Dose Route Start Last Admin Trade Name Freq PRN Reason Stop Dose Admin Acetaminophen 650 mg 06/13/24 20:13 Acetaminophen Tab 325 Mg Tab PO Q6HR PRN Mild Pain or Fever > 100.5 Albuterol Sulfate 3 puff 06/14/24 08:54 Albuterol Hfa Inhaler INHALATION RT-Q6H PRN Shortness Of Breath Alprazolam 0.5 mg 06/14/24 09:00 06/14/24 09:57 Alprazolam 0.5 Mg Tab PO 0.5 mg QID [place] Administration Aspirin 81 mg 06/13/24 22:00 06/14/24 09:57 Aspirin 81 Mg PO 81 mg DAILY [place] Administration Atorvastatin Calcium 80 mg 06/14/24 21:00 Atorvastatin 80 Mg Tab PO HS [facility] Heparin Sodium (Porcine) 0 unit 06/13/24 21:20 Heparin Sodium 1,000 Un/Ml (10ml Vl) IV PER PROTOCOL PRN Low PTT Protocol Sodium Chloride 1,000 mls @ 130 mls/hr 06/13/24 20:15 06/14/24 03:56 Saline 0.9% IV 130 mls/hr .Q7H42M [facility] Administration Piperacillin Sod/Tazobactam 100 mls @ 25 mls/hr 06/14/24 00:00 06/14/24 10:36 Sod 3.375 gm/ Sodium Chloride IVPB 25 mls/hr Q8HR [facility] Administration Clindamycin Phosphate 600 mg/ 54 mls @ 50 mls/hr 06/14/24 04:00 06/14/24 03:56 Dextrose/Water IVPB 50 mls/hr Q8H [facility] Administration Protocol Heparin Sodium/Sodium Chloride 250 mls @ 10.001 mls/hr 06/13/24 21:30 06/14/24 07:13 25,000 unit/ Sodium Chloride IV 5.819 units/kg/hr .Q24H [facility] 6.599 mls/hr Titration Protocol 8.819 UNITS/KG/HR Insulin Aspart 0 unit 06/14/24 12:30 Insulin Aspart (Novolog) 100 Unit/Ml Vial SQ ACHS [facility] Protocol Lisinopril 20 mg 06/14/24 09:00 06/14/24 09:57 Lisinopril 20 Mg Tab PO 20 mg DAILY [facility] Administration Metoprolol Tartrate 25 mg 06/14/24 09:00 06/14/24 09:57 Metoprolol Tartrate 25 Mg Tab PO 25 mg Q12HR [facility] Administration Morphine Sulfate 4 mg 06/13/24 20:13 Morphine Sulfate 4 Mg/Ml Syringe IV Q4HR PRN Severe Pain (Scale 7 to 10) Naloxone HCl 0.2 mg 06/13/24 20:13 Naloxone 0.4 Mg/Ml 1 Ml Vial IV Q2M PRN Opioid Reversal Nicotine 1 patch 06/14/24 09:00 06/14/24 09:58 Nicotine 21mg/24hr Patch TRANSDERM 1 patch DAILY [facility] Administration Ondansetron HCl 4 mg 06/13/24 20:13 Ondansetron 4 Mg/2 Ml Vial IVP Q8HR PRN Nausea And Vomiting Pantoprazole Sodium 40 mg 06/14/24 09:00 06/14/24 09:58 Pantoprazole 40 Mg/10 Ml Vial IV 40 mg DAILY [place] Administration Tamsulosin HCl 0.4 mg 06/14/24 21:00 Tamsulosin 0.4 Mg Cap.Er.24h PO HS [facility] Intake and Output 06/13/24 06/14/24 06/14/24 22:59 06:59 14:59 Intake Total 74.341 0 Output Total 700 Balance -625.659 0 Intake: Intake, IV Titration 74.341 0 Amount Heparin Sod,Pork in 0.45% 74.341 0 NaCl 25,000 unit In 0.45 % NaCl 1 250ml.bag @ 8. 819 UNITS/KG/HR 10.001 mls/hr IV .Q24H [facility] Rx#: [id number] Output: Urine 700 Straight 700 Other: Weight 113.398 kg 06/14/24 04:28 06/13/24 19:48
[2024-06-14 11:46] LABS: Glucose,Whole Blood 177 mg/dL (70-110)
[2024-06-14] MEDS: INSULIN ASPART (NovoLOG) 100 UNIT/ML VIAL SQ SCH (12:32)
[2024-06-14] MEDS: ONDANSETRON 4 MG/2 ML VIAL IVP PRN (12:33)
[2024-06-14] MEDS: FUROSEMIDE 10 MG/ML 4 ML VIAL IV STA (12:38)
[2024-06-14] MEDS: MORPHINE SULFATE 4 MG/ML SYRINGE IV PRN (13:28)
--- NOTE | 2024-06-14 14:37 | P.HPIM ---
History of Present Illness H&P Date: 06/14/24 History of present illness; 68-year-old male with a past medical history of hypertension, type 2 diabetes, hyperlipidemia, and COPD presents with fever, altered mental status, and weakness. Patient is a poor historian, is unable to answer any questions at time of interview. Patient is able to report that he is short of breath but unable to communicate any other symptoms he has and does not remember how he got to the hospital or why he is here. Patient was recently hospitalized in May 2024 for recurrent falls and generalized weakness. Found to have osteomyelitis of the left foot at that time and was discharged on Flagyl and vancomycin. Patient was also discharged with a PICC line at that time. Initial lab work from the ER was significant for WBC 7.9, hemoglobin 16.5, VBG pH 7.44, VBG bicarb 29, creatinine 1.46, glucose 210, alkaline phosphatase 128, troponin 2.24--> 1.09. EKG done in the ER showed heart rate of 108 bpm, no ST segment elevation or depression seen, no T-wave inversions seen. Sinus tach, possible left atrial enlargement, right axis deviation, QTc 457. ER CXR: No acute cardiopulmonary disease/process. Patient admitted to internal medicine service REVIEW OF SYSTEMS: Patient unable to respond to questions regarding ROS other than admitting to shortness of breath. The rest of the 14-point review of systems is negative. PHYSICAL EXAMINATION: GENERAL: The patient is alert and oriented x3, not in any acute distress. Well developed, well nourished. HEENT: Pupils are round and equally reacting to light. EOMI. No scleral icterus. No conjunctival pallor. Normocephalic, atraumatic. No pharyngeal erythema. No thyromegaly. CARDIOVASCULAR: S1 and S2 present. No murmurs, rubs, or gallops. PULMONARY: Chest is clear to auscultation b/l, no wheezing or crackles. ABDOMEN: Soft, nontender, nondistended, normoactive bowel sounds. No palpable organomegaly. MUSCULOSKELETAL: No joint swelling or deformity. EXTREMITIES: Left foot first second third digit amputated, at stub of second amputated digit there is serous and purulent discharge appreciated, right foot eschar on knuckle of the great toe but with no signs of active infection, no overt erythema seen on either extremity. 1-2+ pitting edema noted in the lower extremities bilaterally NEUROLOGICAL: Gross neurological examination did not reveal any focal deficits. SKIN: No rashes. Assessment & Plan: Acute: #Sepsis: UA and chest x-ray negative for infectious workup, serous and purulent discharge appreciated from stub of second amputated digit on left foot. Currently on Zosyn 3.375 g IVPB Q8 HR, clindamycin ID on consult, appreciate further recommendations Renal and bladder ultrasound ordered Recent admission for treatment of osteomyelitis with Flagyl and vancomycin Patient was receiving vancomycin at home for osteomyelitis infection, had several critical readings for troph level outpatient, have reordered vancomycin trough level here. If vancomycin level is within normal limits now we will continue that instead of the current Zosyn. #Elevated troponins/rule out ACS: # Elevated BNP Troponin on admission 2.24--> 1.71 Currently on heparin drip Cardiology on consult, appreciate further recommendations Recent echo from last admission showed EF of 40% Echo ordered, follow-up on results Cardio recommends cardiac cath once patient is medically stable. -CT angiography to rule out pulmonary embolism #Respiratory alkalosis: Potentially secondary to infection VBG done showed pH 7.44 and bicarb 29. #SKYLA: Currently keeping fluids on NS 10 cc/h to keep the vein open as patient is fluid overload currently Ordered renal/bladder ultrasound to rule out urinary retention and hydronephrosis Continue to monitor # Acute on chronic systolic CHF, ejection fraction 40%: Decrease fluids to 10 cc/h, in the setting of fluid overload Gave one-time dose of Lasix IV 40 mg, will monitor urine output after this dose and continue Lasix if urine output is normal. Strict I's and O's Daily weights Cardio on consult Continue to monitor Chronic: #Type 2 Diabetes Placed on sliding scale Accu-Cheks #COPD: Continue home medications F: NS 10 cc/h E: None N: Regular diet A: Wheelchair DVT ppx: Currently on heparin drip GI ppx: Protonix 40 mg IV daily Dispo: Pending clinical course Kade Hodges MD PGY-1 FM Dictation was produced using Snaps[employer] dictation software. please excuse any grammatical, word or spelling errors. I saw and evaluated the patient during the angela and critical portions of this encounter, and discussed the case in detail with the resident author of this note, I agree with the Assessment and Plan, and my changes, if any, are highlighted in blue. 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, NEEDLE ASPIRATION LEFT EYE Q 3 MONTHS, PAIN CLINIC Past Anesthesia/Blood Transfusion Reactions: No Reported Reaction Past Psychological History: Anxiety Smoking Status: Current every day smoker Past Alcohol Use History: None Reported Past Drug Use History: None Reported - Past Family History Mother Family Medical History: Cancer Additional Family Medical History / Comment(s): BREAST Sister(s) Family Medical History: Cancer Medications and Allergies Home Medications Medication Instructions Recorded Confirmed Type Albuterol Inhaler [Ventolin Hfa 3 puff INHALATION RT-Q6H PRN 05/21/24 06/13/24 History Inhaler] Aspirin 81 mg PO DAILY tab 05/28/24 06/13/24 Rx Atorvastatin [Lipitor] 80 mg PO HS tab 05/28/24 06/13/24 Rx Insulin Detemir (Levemir) [Levemir] 17 unit SQ HS each 05/28/24 06/13/24 Rx Vancomycin 1,500 mg IVPB Q16H 35 Days each 05/28/24 06/13/24 Rx metroNIDAZOLE [Flagyl] 500 mg PO TID #35 tab 05/28/24 06/13/24 Rx 0.9 % Sodium Chloride [Sodium 10 ml IV Q16H 06/13/24 06/13/24 History Chloride Flush] ALPRAZolam [Xanax XR] 1 mg PO BID 06/13/24 06/13/24 History INSULIN ASPART (NovoLOG) [NovoLOG See Protocol SQ ACHS 06/13/24 06/13/24 History (formulary)] Metoprolol Tartrate [Lopressor] 25 mg PO Q12H 06/13/24 06/13/24 History Nicotine 21Mg/24Hr Patch [Habitrol] 1 patch TRANSDERM DAILY 06/13/24 06/13/24 History Tamsulosin [Flomax] 0.4 mg PO HS 06/13/24 06/13/24 History lisinopriL [Zestril] 20 mg PO DAILY 06/13/24 06/13/24 History Allergies Allergy/AdvReac Type Severity Reaction Status Date / Time No Known Allergies Allergy Verified 06/13/24 20:54 Physical Exam Osteopathic Statement: *. No significant issues noted on an osteopathic structural exam other than those noted in the History and Physical/Consult. Vitals: Vital Signs Temp Pulse Resp BP Pulse Ox 06/14/24 07:00 88 18 130/68 92 L 06/14/24 02:53 74 18 110/70 96 06/13/24 22:20 97.8 F 93 18 122/73 96 06/13/24 19:16 100.3 F H 110 H 22 131/84 93 L Intake and Output 06/13/24 06/14/24 06/14/24 22:59 06:59 14:59 Intake Total 74.341 0 Output Total 700 Balance -625.659 0 Intake: Intake, IV Titration 74.341 0 Amount Heparin Sod,Pork in 0.45% 74.341 0 NaCl 25,000 unit In 0.45 % NaCl 1 250ml.bag @ 8. 819 UNITS/KG/HR 10.001 mls/hr IV .Q24H [facility] Rx#: [id number] Output: Urine 700 Straight 700 Other: Weight 113.398 kg Results CBC & Chem 7: 06/14/24 04:28 06/14/24 04:28 Labs: Abnormal Lab Results - Last 24 Hours (Table) 06/13/24 06/13/24 06/13/24 Range/Units 19:48 19:48 19:48 Lymphocytes # 0.6 L (1.0-4.8) k/uL APTT (22.0-30.0) sec VBG pH (7.31-7.41) VBG HCO3 (24-28) mmol/L Creatinine 1.46 H (0.66-1.25) mg/dL Glucose 210 H (74-99) mg/dL Alkaline Phosphatase 128 H (38-126) U/L Troponin I 2.240 H* (0.000-0.034) ng/mL Urine Protein (Negative) Urine Glucose (UA) (Negative) Urine Blood (Negative) Urine RBC (0-5) /hpf Urine Bacteria (None) /hpf Hyaline Casts (0-2) /lpf Urine Mucus (None) /hpf Urine Yeast (Budding) (None) /hpf 06/13/24 06/14/24 06/14/24 Range/Units 20:28 02:58 04:28 Lymphocytes # (1.0-4.8) k/uL APTT 180.0 H* (22.0-30.0) sec VBG pH 7.44 H (7.31-7.41) VBG HCO3 29 H (24-28) mmol/L Creatinine (0.66-1.25) mg/dL Glucose (74-99) mg/dL Alkaline Phosphatase (38-126) U/L Troponin I (0.000-0.034) ng/mL Urine Protein 2+ H (Negative) Urine Glucose (UA) 1+ H (Negative) Urine Blood Moderate H (Negative) Urine RBC 12 H (0-5) /hpf Urine Bacteria Rare H (None) /hpf Hyaline Casts 8 H (0-2) /lpf Urine Mucus Occasional H (None) /hpf Urine Yeast (Budding) Rare H (None) /hpf 06/14/24 Range/Units 07:48 Lymphocytes # (1.0-4.8) k/uL APTT (22.0-30.0) sec VBG pH (7.31-7.41) VBG HCO3 (24-28) mmol/L Creatinine (0.66-1.25) mg/dL Glucose (74-99) mg/dL Alkaline Phosphatase (38-126) U/L Troponin I 1.710 H* (0.000-0.034) ng/mL Urine Protein (Negative) Urine Glucose (UA) (Negative) Urine Blood (Negative) Urine RBC (0-5) /hpf Urine Bacteria (None) /hpf Hyaline Casts (0-2) /lpf Urine Mucus (None) /hpf Urine Yeast (Budding) (None) /hpf
[2024-06-14 14:46] LABS: ABG Base Excess -2.4 mmol/L; ABG HCO3 23 mmol/L (21-25); ABG Oxygen Saturation 94.8 % (94-97); ABG PCO2 39 mmHg (35-45); ABG PH 7.37 (7.35-7.45); ABG PO2 70 mmHg (83-108); ABG TCO2 24 mmol/L (19-24); Allen Test Performed? Yes
--- NOTE | 2024-06-14 15:24 | US ---
EXAMINATION TYPE: US kidneys/renal and bladder DATE OF EXAM: 06/14/2024 COMPARISON: NONE CLINICAL INDICATION: Male, 68 years old with history of skyla; SKYLA TECHNIQUE: Grayscale and color Doppler imaging of the bilateral kidneys and urinary bladder: FINDINGS: EXAM MEASUREMENTS: Right Kidney: 12.5 x 5.7 x 5.7 cm Left Kidney: 11.6 x 5.7 x 5.4 cm Limited scan- pt restless, somewhat uncooperative, unable to move, on Bi-Pap Right Kidney: Limited views show no evidence of hydro, hypoechoic lesion upper pole= 3.2 x 3.2 x 3.2 cm Left Kidney: Limited views show no evidence of hydro Bladder: Pt has cath in place There is no evidence for hydronephrosis at this point in time. No nephrolithiasis is seen. Cortical medullary differentiation is maintained. Right upper pole 3.2 cm simple cyst. The urinary bladder is decompressed with Del Angel catheter in place which limits evaluation. Incidental cholelithiasis. IMPRESSION: Limited examination due to overlying bowel gas. 1. No hydronephrosis or nephrolithiasis. 2. Simple right renal cyst. [facility], , 06/14/2024 3:22 PM
--- NOTE | 2024-06-14 15:47 | CA ---
Transthoracic Echo Report Name: Roberto Cage Age: 68 Gender: M : 1955 Exam Date: 06/14/2024 08:42 Exam Location: [place] Echo Ht (in): 66 Wt (lb): 250 Ordering Physician: Madie Parker Attending/Referring Phys: [id number], Elena Coroner Transport Technician Aye Mena RDCS Procedure CPT: Indications: LV function, elevated trop Cardiac Hx: Limited to assess LVEF and function. Technical Quality: Technically difficult study Contrast 1: Definity Total Dose (mL): 2 Contrast 2: Total Dose (mL): MEASUREMENTS (Male / Female) Normal Values 2D ECHO LV Diastolic Diameter PLAX 5.4 cm 4.2 - 5.9 / 3.9 - 5.3 cm LV Systolic Diameter PLAX 4.4 cm IVS Diastolic Thickness 1.2 cm 0.6 - 1.0 / 0.6 - 0.9 cm LVPW Diastolic Thickness 0.9 cm 0.6 - 1.0 / 0.6 - 0.9 cm LV Relative Wall Thickness 0.4 LV Diastolic Volume MOD BP 168.9 cm??? 67 - 155 / 56 - 104 cm??? LV Systolic Volume MOD BP 96.7 cm??? 22 - 58 / 19 - 49 cm??? LV Ejection Fraction MOD BP 42.8 % >= 55 % LV Cardiac Index MOD BP 2822.4 cm???/min???m??? LV Diastolic Volume MOD 4C 167.0 cm??? LV Systolic Volume MOD 4C 84.6 cm??? LV Ejection Fraction MOD 4C 49.4 % LV Cardiac Index MOD 4C 3221.1 cm???/min???m??? LV Diastolic Length 4C 8.6 cm LV Systolic Length 4C 7.5 cm LV Diastolic Volume MOD 2C 167.5 cm??? LV Systolic Volume MOD 2C 105.2 cm??? LV Ejection Fraction MOD 2C 37.2 % LV Cardiac Index MOD 2C 2436.8 cm???/min???m??? LV Diastolic Length 2C 8.8 cm LV Systolic Length 2C 7.9 cm FINDINGS Left Ventricle Left ventricular ejection fraction is estimated at 35-40 %. Mildly increased septal wall thickness. Mildly increased left ventricular diastolic volume. Severely increased left ventricular systolic volume. Moderately decreased left ventricular ejection fraction. Right Ventricle Right Atrium Left Atrium Mitral Valve Aortic Valve Tricuspid Valve Pulmonic Valve Pericardium Aorta CONCLUSIONS Limited 2-D echo Left ventricular ejection fraction 35-40% Mildly increased left ventricular wall thickness Previewed by: Dr. Willie Frias DO (Electronically Signed) Final Date: 14 June 2024 15:46
[2024-06-14] MEDS ORDERED: HYDROcodone/APAP 7.5-325MG 1 EACH TAB PO PRN (16:29)
[2024-06-14] MEDS: ACETAMINOPHEN IV (For NPO) 1,000 MG in EMPTY BAG 1 BAG IVPB ONE (19:46)
[2024-06-14 20:07] LABS: Glucose,Whole Blood 222 mg/dL (70-110)
[2024-06-14] MEDS: FUROSEMIDE 10 MG/ML 4 ML VIAL IV SCH (20:20)
[2024-06-14] MEDS: TAMSULOSIN 0.4 MG CAP.ER.24H PO SCH (20:41)
[2024-06-14] MEDS: ATORVASTATIN 80 MG TAB PO SCH (20:41)
[2024-06-14] MEDS: HYDROmorphone 0.5 MG/0.5 ML SYRINGE IVP PRN (20:45)
[2024-06-14] MEDS: ZINC OXIDE PASTE (Z-GUARD) 1 APPLIC TOPICAL PRN (20:50)
[2024-06-14 20:59] LABS: INR 1.2 (<1.2); Prothrombin Time 12.4 sec (10.0-12.5)
[2024-06-14] MEDS ORDERED: FUROSEMIDE 10 MG/ML 4 ML VIAL IV SCH (21:00)
--- NOTE | 2024-06-14 22:38 | P.CONS ---
History of Present Illness - Reason for Consult Consult date: 06/14/24 ID Requesting physician: Dominik Marino - Chief Complaint Fever and mental status changes x 1 day - History of Present Illness Patient is a 68-year-old male with a past medical history difficult for diabetes mellitus osteoarthritis neuropathy he did have a history of diabetic foot infection requiring amputation of the right first and second toe the patient second toe amputation site wound has healed however did have a nonhealing of the right big toe amputation site wound for the patient was recently admitted at this facility and has been diagnosed with an osteomyelitis culture positive for MRSA and anaerobes Finegoldia magna bone scan was suggesti ve of osteomyelitis the patient did get a PICC line and was advised a 5-week course of vancomycin pharmacy to dose and oral Flagyl with the patient was receiving in the outpatient setting I did evaluate the patient in the office on Monday and the patient was doing well wound was healing patient has not been brought to the ER for evaluation of weakness and mental status changes in this patient symptom pattern has been going on for a day before the patient has been brought to the hospital history was provided mostly by the family at the bedside as the patient was lethargic and did not answer any question he did mention the patient was having more coughing but no significant sputum production no clear history of any nausea vomiting no choking on the food did not mention abdominal pain or diarrhea on presentation to the hospital patient did have a temperature of 100.3 F patient was tachypneic but not hypotensive he was hypoxic with O2 sats of 93% down to 88% today patient has been on high flow nasal cannula oxygen patient did have normal white count of 7.9 with no left shift his creatinine was 1.4 6 repeat is 1.5 vancomycin trough has been less than 5 patient did have a chest x-ray no acute cardiopulmonary disease process patient has been started on Zosyn infectious disease was consulted for further management of antibiotic therapy most information has been obtained from review the chart talking to the family as the patient would not want any reliable history Review of Systems Positive points has been mentioned in HPI complete review could not be obtained because of his underlying mental status Past Medical History Past Medical History: Diabetes Mellitus, Eye Disorder, Osteoarthritis (OA) Additional Past Medical History / Comment(s): NEUROPATHY; Meniere's History of Any Multi-Drug Resistant Organisms: None Reported Year Discovered:: 05/21/24 MDRO Source:: left foot Past Surgical History: Orthopedic Surgery, Tonsillectomy Additional Past Surgical History / Comment(s): right carpal tunnel release, 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, NEEDLE ASPIRATION LEFT EYE Q 3 MONTHS, [facility] CL[facility] Past Anesthesia/Blood Transfusion Reactions: No Reported Reaction Past Psychological History: Anxiety Smoking Status: Current every day smoker Past Alcohol Use History: None Reported Past Drug Use History: None Reported - Past Family History Mother Family Medical History: Cancer Additional Family Medical History / Comment(s): BREAST Sister(s) Family Medical History: Cancer Medications and Allergies Home Medications Medication Instructions Recorded Confirmed Type Albuterol Inhaler [Ventolin Hfa 3 puff INHALATION RT-Q6H PRN 05/21/24 06/13/24 History Inhaler] Aspirin 81 mg PO DAILY tab 05/28/24 06/13/24 Rx Atorvastatin [Lipitor] 80 mg PO HS tab 05/28/24 06/13/24 Rx Insulin Detemir (Levemir) [Levemir] 17 unit SQ HS each 05/28/24 06/13/24 Rx Vancomycin 1,500 mg IVPB Q16H 35 Days each 05/28/24 06/13/24 Rx metroNIDAZOLE [Flagyl] 500 mg PO TID #35 tab 05/28/24 06/13/24 Rx 0.9 % Sodium Chloride [Sodium 10 ml IV Q16H 06/13/24 06/13/24 History Chloride Flush] ALPRAZolam [Xanax XR] 1 mg PO BID 06/13/24 06/13/24 History INSULIN ASPART (NovoLOG) [NovoLOG See Protocol SQ ACHS 06/13/24 06/13/24 History (formulary)] Metoprolol Tartrate [Lopressor] 25 mg PO Q12H 06/13/24 06/13/24 History Nicotine 21Mg/24Hr Patch [Habitrol] 1 patch TRANSDERM DAILY 06/13/24 06/13/24 History Tamsulosin [Flomax] 0.4 mg PO HS 06/13/24 06/13/24 History lisinopriL [Zestril] 20 mg PO DAILY 06/13/24 06/13/24 History Allergies Allergy/AdvReac Type Severity Reaction Status Date / Time No Known Allergies Allergy Verified 06/13/24 20:54 Physical Exam Vitals: Vital Signs Temp Pulse Resp BP Pulse Ox 06/14/24 10:26 109 H 29 H 127/78 92 L 06/14/24 07:00 88 18 130/68 92 L 06/14/24 02:53 74 18 110/70 96 06/13/24 22:20 97.8 F 93 18 122/73 96 06/13/24 19:16 100.3 F H 110 H 22 131/84 93 L Intake and Output 06/13/24 06/14/24 06/14/24 22:59 06:59 14:59 Intake Total 74.341 0 Output Total 700 Balance -625.659 0 Intake: Intake, IV Titration 74.341 0 Amount Heparin Sod,Pork in 0.45% 74.341 0 NaCl 25,000 unit In 0.45 % NaCl 1 250ml.bag @ 8. 819 UNITS/KG/HR 10.001 mls/hr IV .Q24H [facility] Rx#: [id number] Output: Urine 700 Straight 700 Other: Weight 113.398 kg GENERAL DESCRIPTION: Elderly male lying in bed, no distress. No tachypnea or accessory muscle of respiration use. HEENT: Shows Pallor , no scleral icterus. Oral mucous membrane is dry. NECK: Trachea central, no thyromegaly. LUNGS: Unlabored breathing. Coarse breath sounds bilaterally HEART: S1, S2, regular rate and rhythm. No loud murmur ABDOMEN: Soft, no tenderness , guarding or rigidity, no organomegaly EXTREMITIES: Left big toe amputation site wound overall decrease in depth surrounding inflammatory changes has decreased no foul-smelling drainage SKIN: No rash, no masses palpable. NEUROLOGICAL: The patient is lethargic orientation would not determine Results CBC & Chem 7: 06/14/24 04:28 06/14/24 04:28 Labs: Abnormal Lab Results - Last 24 Hours (Table) 06/13/24 06/13/24 06/13/24 Range/Units 19:48 19:48 19:48 RBC (4.40-5.60) X 10*6/uL Hgb (13.0-17.0) g/dL Hct (39.6-50.0) % Lymphocytes # 0.6 L (1.0-4.8) k/uL Eosinophils # (0.04-0.35) X 10*3/uL APTT (22.0-30.0) sec VBG pH (7.31-7.41) VBG HCO3 (24-28) mmol/L Carbon Dioxide (21.6-31.8) mmol/L Anion Gap (4.00-12.00) mmol/L Creatinine 1.46 H (0.66-1.25) mg/dL Est GFR (CKD-EPI) (>=60) BUN/Creatinine Ratio (12.00-20.00) Ratio Glucose 210 H (74-99) mg/dL Calcium (8.7-10.3) mg/dL Total Bilirubin (0.3-1.2) mg/dL AST (14-35) U/L Alkaline Phosphatase 128 H (38-126) U/L Troponin I 2.240 H* (0.000-0.034) ng/mL Total Protein (6.2-8.2) g/dL Albumin (3.8-4.9) g/dL Albumin/Globulin Ratio (1.60-3.17) Ratio Urine Protein (Negative) Urine Glucose (UA) (Negative) Urine Blood (Negative) Urine RBC (0-5) /hpf Urine Bacteria (None) /hpf Hyaline Casts (0-2) /lpf Urine Mucus (None) /hpf Urine Yeast (Budding) (None) /hpf 06/13/24 06/14/24 06/14/24 Range/Units 20:28 02:58 04:28 RBC 4.24 L (4.40-5.60) X 10*6/uL Hgb 12.7 L (13.0-17.0) g/dL Hct 39.2 L (39.6-50.0) % Lymphocytes # (1.0-4.8) k/uL Eosinophils # 0.01 L (0.04-0.35) X 10*3/uL APTT (22.0-30.0) sec VBG pH 7.44 H (7.31-7.41) VBG HCO3 29 H (24-28) mmol/L Carbon Dioxide (21.6-31.8) mmol/L Anion Gap (4.00-12.00) mmol/L Creatinine (0.66-1.25) mg/dL Est GFR (CKD-EPI) (>=60) BUN/Creatinine Ratio (12.00-20.00) Ratio Glucose (74-99) mg/dL Calcium (8.7-10.3) mg/dL Total Bilirubin (0.3-1.2) mg/dL AST (14-35) U/L Alkaline Phosphatase (38-126) U/L Troponin I (0.000-0.034) ng/mL Total Protein (6.2-8.2) g/dL Albumin (3.8-4.9) g/dL Albumin/Globulin Ratio (1.60-3.17) Ratio Urine Protein 2+ H (Negative) Urine Glucose (UA) 1+ H (Negative) Urine Blood Moderate H (Negative) Urine RBC 12 H (0-5) /hpf Urine Bacteria Rare H (None) /hpf Hyaline Casts 8 H (0-2) /lpf Urine Mucus Occasional H (None) /hpf Urine Yeast (Budding) Rare H (None) /hpf 06/14/24 06/14/24 06/14/24 Range/Units 04:28 04:28 07:48 RBC (4.40-5.60) X 10*6/uL Hgb (13.0-17.0) g/dL Hct (39.6-50.0) % Lymphocytes # (1.0-4.8) k/uL Eosinophils # (0.04-0.35) X 10*3/uL APTT 180.0 H* (22.0-30.0) sec VBG pH (7.31-7.41) VBG HCO3 (24-28) mmol/L Carbon Dioxide 20.0 L (21.6-31.8) mmol/L Anion Gap 14.00 H (4.00-12.00) mmol/L Creatinine (0.66-1.25) mg/dL Est GFR (CKD-EPI) 50 L (>=60) BUN/Creatinine Ratio 11.67 L (12.00-20.00) Ratio Glucose 190 H (74-99) mg/dL Calcium 7.5 L (8.7-10.3) mg/dL Total Bilirubin 0.2 L (0.3-1.2) mg/dL AST 36 H (14-35) U/L Alkaline Phosphatase (38-126) U/L Troponin I 1.710 H* (0.000-0.034) ng/mL Total Protein 5.1 L (6.2-8.2) g/dL Albumin 3.0 L (3.8-4.9) g/dL Albumin/Globulin Ratio 1.43 L (1.60-3.17) Ratio Urine Protein (Negative) Urine Glucose (UA) (Negative) Urine Blood (Negative) Urine RBC (0-5) /hpf Urine Bacteria (None) /hpf Hyaline Casts (0-2) /lpf Urine Mucus (None) /hpf Urine Yeast (Budding) (None) /hpf Assessment and Plan (1) Fever Current Visit: Yes Status: Acute Code(s): R50.9 - FEVER, UNSPECIFIED SNOMED Code(s): 706235675 (2) Osteomyelitis of left foot Current Visit: Yes Status: Acute Code(s): M86.9 - OSTEOMYELITIS, UNSPECIFIED SNOMED Code(s): 7157154057510530 Plan: 1patient presented to hospital with fever and mental status changes in this patient who was getting outpatient vancomycin pharmacy to dose for his a left big toe amputation site wound/osteomyelitis patient did have a low-grade fever however he did have normal white count overall left big toe amputation site wound is healing however the patient did have low vancomycin trough with question of possible noncompliance with his outpatient vancomycin for possible viral syndrome as a chest x-ray reported negative for acute infiltrate UA has not been significantly positive either 2-we will check influenza RSV and COVID PCR 3-check inflammatory markers 4-blood culture should be obtained from the PICC line to rule out primary sepsis 5-with patient started on Zosyn we will add daptomycin to cover for the MRSA while waiting for the workup to be completed We will follow on clinical condition and cultures to further adjust medication if needed Thank you for this consultation we will follow the patient along with you Dictation was produced using [employer] dictation software. please excuse any grammatical, word or spelling errors. Time with Patient: Greater than 30
[2024-06-15] MEDS ORDERED: CLINDAMYCIN 600 MG in DEXTROSE 5% IN WATER 50 ML IVPB SCH
[2024-06-15 06:06] LABS: Glucose,Whole Blood 148 mg/dL (70-110)
[2024-06-15 06:37] LABS: Basophils % (A) 0 %; Eosinophils % (A) 0 %; HCT 43.1 % (39.0-53.0); HGB 14.7 gm/dL (13.0-17.5); Lymphocytes % (A) 16 %; MCH 30.5 pg (25.0-35.0); MCHC 34.2 g/dL (31.0-37.0); MCV 89.1 fL (80.0-100.0); Monocytes # (A) 0.6 k/uL (0-1.0); Monocytes % (A) 8 %; Neutrophils # (A) 4.9 k/uL (1.3-7.7); Neutrophils % (A) 75 %; Platelet Count 173 k/uL (150-450); RBC 4.83 m/uL (4.30-5.90); RDW 14.5 % (11.5-15.5); WBC 6.5 k/uL (3.8-10.6)
[2024-06-15 07:00] LABS: African American GFR (CKD) 54 (>60 ml/min/1.73 sqM); Anion Gap 7 mmol/L; Blood Urea Nitrogen 22 mg/dL (9-20); Calcium 7.5 mg/dL (8.4-10.2); Carbon Dioxide 25 mmol/L (22-30); Chloride 108 mmol/L (98-107); Glucose 169 mg/dL (74-99); Non-African American GFR(CKD) 47 (>60 ml/min/1.73 sqM); Sodium 140 mmol/L (137-145)
--- NOTE | 2024-06-15 07:54 | XR ---
EXAMINATION TYPE: XR chest 1V DATE OF EXAM: 06/15/2024 COMPARISON: 06/13/2024 HISTORY: Weakness TECHNIQUE: Single frontal view of the chest is obtained. FINDINGS: There is moderate cardiomegaly and mild pulmonary vascular congestion. There is no airspace consolida tion. There is no pleural effusion or pneumothorax. The osseous structures are intact IMPRESSION: Findings suggest the possibility of mild CHF. [facility], Workstation: JAMES 06/15/2024 7:51 AM
[2024-06-15 11:34] LABS: Glucose,Whole Blood 158 mg/dL (70-110)
--- NOTE | 2024-06-15 12:15 | P.PN ---
Subjective Progress Note Date: 06/15/24 Pt reports his breathing is much better, denies pain at this time. Tolerating 5L NC at 99% saturation. Gen: In NAD, non-toxic HEENT: normocephalic, atraumatic, hearing acuity is intant, mucous membranes m oist CVS: perfusing all extremities well, no pitting edema, Respiratory: symmetric chest expansion, no accessory muscle use, GI: soft, NTTP, ND, : no suprapubic tenderness, no CVA tenderness MSK/Derm: no rashes, cyanosis Neuro: CN II-XII intact, no motor weakness, Psych: cooperative, euthymic mood, judgment and insight is intact Hospital course: 68-year-old male with a past medical history of diabetic foot ulcer with osteomyelitis on vancomycin and Flagyl at home, hypertension, type 2 diabetes, hyperlipidemia, and COPD presents with fever, altered mental status, and weakness. Initial lab work from the ER was significant for WBC 7.9, hemoglobin 16.5, VBG pH 7.44, VBG bicarb 29, creatinine 1.46, glucose 210, alkaline phosphatase 128, troponin 2.24--> 1.09. EKG done in the ER showed heart rate of 108 bpm, no ST segment elevation or depression seen, no T-wave inversions seen. Sinus tach, possible left atrial enlargement, right axis deviation, QTc 457. ER CXR: Appear to be wet. Assessment & Plan: Acute: #Sepsis # Diabetic foot ulcer with osteomyelitis Currently on Zosyn 3.375 g IVPB Q8 HR, daptomycin ID on consult, appreciate further recommendations #Elevated troponins/rule out ACS: # Elevated BNP Troponin on admission 2.24--> 1.71 Currently on heparin drip Cardiology on consult, appreciate further recommendations Recent echo from last admission showed EF of 40% Echo ordered, follow-up on results Cardio recommends cardiac cath once patient is medically stable. - CT angiography to rule out pulmonary embolism is still pending #SKYLA: #Acute on chronic systolic CHF, ejection fraction 40%: #Acute hypoxemic respiratory failure Decrease fluids to 10 cc/h, in the setting of fluid overload Continue Lasix 40 mg IV twice daily Strict I's and O's Daily weights Cardio on consult Continue to monitor Chronic: #Type 2 Diabetes Placed on sliding scale Accu-Cheks #COPD: Continue home medications F: NS 10 cc/h E: None N: Regular diet A: Wheelchair DVT ppx: Currently on heparin drip GI ppx: Protonix 40 mg IV daily Dispo: Pending clinical course Objective - Vital Signs Vital signs: Vital Signs Temp 99.0 F 06/15/24 11:59 Pulse 84 06/15/24 11:59 Resp 18 06/15/24 11:59 BP 139/84 06/15/24 11:59 Pulse Ox 99 06/15/24 11:59 FiO2 50 06/15/24 08:15 Intake & Output 06/14/24 06/15/24 06/15/24 18:59 06:59 18:59 Intake Total 0 178.055 Output Total 1000 500 350 Balance -1000 -500 -171.945 Weight 100 kg Intake: IV 10 Invasive Line 4 10 Intake, IV Titration 0 168.055 Amount Heparin Sod,Pork in 0.45% 0 168.055 NaCl 25,000 unit In 0.45 % NaCl 1 250ml.bag @ 8. 819 UNITS/KG/HR 10.001 mls/hr IV .Q24H [facility] Rx#: [id number] Output: Urine 1000 500 350 Other: Voiding Method Indwelling Catheter Indwelling Catheter - Labs CBC & Chem 7: 06/15/24 05:34 06/15/24 05:34 Labs: Abnormal Lab Results - Last 24 Hours (Table) 06/14/24 06/14/24 06/14/24 Range/Units 12:15 12:15 14:41 INR (<1.2) APTT 47.3 H (22.0-30.0) sec ABG pO2 70 L (83-108) mmHg Chloride (98-107) mmol/L BUN (9-20) mg/dL Creatinine (0.66-1.25) mg/dL Glucose (74-99) mg/dL POC Glucose (mg/dL) (70-110) mg/dL Calcium (8.4-10.2) mg/dL Troponin I 1.090 H* (0.000-0.034) ng/mL C-Reactive Protein (<1.0) mg/dL Procalcitonin (0.02-0.50) ng/mL SARS-CoV-2 (PCR) (Not Detectd) 06/14/24 06/14/24 06/14/24 Range/Units 19:42 20:35 22:56 INR 1.2 H (<1.2) APTT (22.0-30.0) sec ABG pO2 (83-108) mmHg Chloride (98-107) mmol/L BUN (9-20) mg/dL Creatinine (0.66-1.25) mg/dL Glucose (74-99) mg/dL POC Glucose (mg/dL) 222 H (70-110) mg/dL Calcium (8.4-10.2) mg/dL Troponin I (0.000-0.034) ng/mL C-Reactive Protein 5.9 H (<1.0) mg/dL Procalcitonin (0.02-0.50) ng/mL SARS-CoV-2 (PCR) (Not Detectd) 06/14/24 06/15/24 06/15/24 Range/Units 22:56 00:00 05:34 INR (<1.2) APTT (22.0-30.0) sec ABG pO2 (83-108) mmHg Chloride 108 H (98-107) mmol/L BUN 22 H (9-20) mg/dL Creatinine 1.51 H (0.66-1.25) mg/dL Glucose 169 H (74-99) mg/dL POC Glucose (mg/dL) (70-110) mg/dL Calcium 7.5 L (8.4-10.2) mg/dL Troponin I (0.000-0.034) ng/mL C-Reactive Protein (<1.0) mg/dL Procalcitonin 0.81 H (0.02-0.50) ng/mL SARS-CoV-2 (PCR) Detected A (Not Detectd) 06/15/24 06/15/24 06/15/24 Range/Units 05:52 06:03 11:31 INR (<1.2) APTT 55.6 H (22.0-30.0) sec ABG pO2 (83-108) mmHg Chloride (98-107) mmol/L BUN (9-20) mg/dL Creatinine (0.66-1.25) mg/dL Glucose (74-99) mg/dL POC Glucose (mg/dL) 148 H 158 H (70-110) mg/dL Calcium (8.4-10.2) mg/dL Troponin I (0.000-0.034) ng/mL C-Reactive Protein (<1.0) mg/dL Procalcitonin (0.02-0.50) ng/mL SARS-CoV-2 (PCR) (Not Detectd) Microbiology - Last 24 Hours (Table) 06/13/24 21:49 Blood Culture - Preliminary Blood
--- NOTE | 2024-06-15 13:50 | CT ---
EXAMINATION TYPE: CT angio chest DATE OF EXAM: 06/15/2024 1:40 PM COMPARISON: None HISTORY: COVID, SOB, DVT CT DLP: 873.9 mGycm Automated exposure control for dose reduction was used. CONTRAST: CTA scan of the thorax is performed with IV Contrast, patient injected with 80 mL of Isovue 370, pulm onary embolism protocol. FINDINGS: The exam is limited by motion. There are small bilateral pleural effusions and bibasilar groundglass opacities.. Suspect small subsegmental pulmonary emboli in bilateral upper lobes. There is no mediastinal, hilar or axillary adenopathy. There is mild cardiomegaly. The osseous structures are intact. Limited scanning through the upper abdomen reveals no gross abnormality. IMPRESSION: 1. Suspect suspect small subsegmental bilateral upper lobe pulmonary emboli. 2. Small bilateral pleural effusions and bibasilar groundglass opacities. [facility], , 06/15/2024 1:48 PM
[2024-06-15] MEDS ORDERED: HEPARIN SODIUM 1,000 UN/ML (10ML VL) IV PRN (14:05)
[2024-06-15] MEDS: HEPARIN SOD,PORK IN 0.45% NACL 25,000 UNIT in 0.45% NACL 1 250ML.BAG IV SCH (14:30)
[2024-06-15 16:34] LABS: Glucose,Whole Blood 181 mg/dL (70-110)
[2024-06-15 20:34] LABS: Glucose,Whole Blood 167 mg/dL (70-110)
[2024-06-15] MEDS: ATORVASTATIN 80 MG TAB PO SCH (20:41)
[2024-06-15] MEDS: REMDESIVIR 200 MG in SODIUM CHLORIDE 0.9% 250 ML IVPB ONE (21:33)
--- NOTE | 2024-06-15 23:21 | P.PN ---
Subjective Progress Note Date: 06/15/24 Principal diagnosis: Reason for follow-up is a COVID-19 pneumonia and left big toe amputation site osteomyelitis Patient is a 68-year-old male with a past medical history difficult for diabetes mellitus osteoarthritis neuropathy he did have a history of diabetic foot infection requiring amputation of the right first and second toe the patient second toe amputation with a recent admission to the hospital with right big toe potation site wound infection osteomyelitis with MRSA and Laminealexeystarr stahl debbiemonserrat was getting outpatient antibiotic presented to hospital now with mental status changes fever did shows evidence of COVID-19 infection. On today's evaluation that is 06/15/2024,the patient did have resolution of his fever and is afebrile this morning, patient is 5 L nasal cannula supplemental oxygen and denies any worsening shortness of breath no chest pain did have a cough but not bringing up any sputum, patient denies having any nausea or vomiting, no abdominal pain and no diarrhea has been reported. Patient did have a white count of 6.[address] angiogram of the chest did shows evidence of groundglass opacity and PE Objective - Vital Signs Vital signs: Vital Signs Temp 98.9 F 06/15/24 20:00 Pulse 84 06/15/24 20:00 Resp 24 06/15/24 20:00 BP 147/78 06/15/24 20:00 Pulse Ox 98 06/15/24 20:00 FiO2 50 06/15/24 08:15 Intake & Output 06/15/24 06/15/24 06/16/24 06:59 18:59 06:59 Intake Total 428.055 Output Total 500 2700 Balance -500 -2271.945 Weight 100 kg Intake: IV 20 Invasive Line 4 20 Intake, IV Titration 168.055 Amount Heparin Sod,Pork in 0.45% 168.055 NaCl 25,000 unit In 0.45 % NaCl 1 250ml.bag @ 8. 819 UNITS/KG/HR 10.001 mls/hr IV .Q24H [facility] Rx#: [id number] Oral 240 Output: Urine 500 2700 Other: Voiding Method Indwelling Catheter Indwelling Catheter - Exam GENERAL DESCRIPTION: An elderly male lying in bed in no distress RESPIRATORY SYSTEM: Unlabored breathing , decreased breath sounds at bases HEART: S1 S2 regular rate and rhythm , ABDOMEN: Soft , no tenderness EXTREMITIES: No edema feet - Labs CBC & Chem 7: 06/15/24 05:34 06/15/24 05:34 Labs: Abnormal Lab Results - Last 24 Hours (Table) 06/14/24 06/14/24 06/15/24 Range/Units 22:56 22:56 00:00 APTT (22.0-30.0) sec Chloride (98-107) mmol/L BUN (9-20) mg/dL Creatinine (0.66-1.25) mg/dL Glucose (74-99) mg/dL POC Glucose (mg/dL) (70-110) mg/dL Calcium (8.4-10.2) mg/dL C-Reactive Protein 5.9 H (<1.0) mg/dL Procalcitonin 0.81 H (0.02-0.50) ng/mL SARS-CoV-2 (PCR) Detected A (Not Detectd) 06/15/24 06/15/24 06/15/24 Range/Units 05:34 05:52 06:03 APTT 55.6 H (22.0-30.0) sec Chloride 108 H (98-107) mmol/L BUN 22 H (9-20) mg/dL Creatinine 1.51 H (0.66-1.25) mg/dL Glucose 169 H (74-99) mg/dL POC Glucose (mg/dL) 148 H (70-110) mg/dL Calcium 7.5 L (8.4-10.2) mg/dL C-Reactive Protein (<1.0) mg/dL Procalcitonin (0.02-0.50) ng/mL SARS-CoV-2 (PCR) (Not Detectd) 06/15/24 06/15/24 06/15/24 Range/Units 11:31 16:29 20:20 APTT (22.0-30.0) sec Chloride (98-107) mmol/L BUN (9-20) mg/dL Creatinine (0.66-1.25) mg/dL Glucose (74-99) mg/dL POC Glucose (mg/dL) 158 H 181 H 167 H (70-110) mg/dL Calcium (8.4-10.2) mg/dL C-Reactive Protein (<1.0) mg/dL Procalcitonin (0.02-0.50) ng/mL SARS-CoV-2 (PCR) (Not Detectd) Microbiology - Last 24 Hours (Table) 06/13/24 21:49 Blood Culture - Preliminary Blood Assessment and Plan (1) Fever Current Visit: Yes Status: Acute Code(s): R50.9 - FEVER, UNSPECIFIED SNOMED Code(s): 851611233 (2) Osteomyelitis of left foot Current Visit: Yes Status: Acute Code(s): M86.9 - OSTEOMYELITIS, UNSPECIFIED SNOMED Code(s): 8043436769072242 (3) Pneumonia due to COVID-19 virus Current Visit: Yes Status: Acute Code(s): U07.1 - COVID-19; J12.82 - PNEUMONIA DUE TO CORONAVIRUS DISEASE 2018 SNOMED Code(s): 784927016951774943 Plan: 1patient presented to hospital with fever and mental status changes in this patient who was getting outpatient vancomycin pharmacy to dose for his a left big toe amputation site wound/osteomyelitis patient did have a low-grade fever however he did have normal white count overall left big toe amputation site wound is healing however the patient did have low vancomycin trough with question of possible noncompliance with his outpatient vancomycin for possible viral syndrome as a chest x-ray reported negative for acute infiltrate UA has not been significantly positive either 2-patient COVID-19 PCR came back positive CT angiogram did shows evidence of PE and groundglass opacity suggestive of COVID-19 pneumonia 4-we will start the patient on remdesivir because of the COVID-19 pneumonia seen on the CT and the patient is hypoxic symptom onset less than 2 days discontinue Zosyn as no evidence of any secondary bacterial pneumonia 5patient to continue with daptomycin will add oral Flagyl for his left big toe osteomyelitis Dictation was produced using [employer] dictation software. please excuse any gram matical, word or spelling errors. Time with Patient: Less than 30
[2024-06-16 06:10] LABS: Glucose,Whole Blood 179 mg/dL (70-110)
[2024-06-16 07:55] LABS: Basophils % (A) 0 %; Eosinophils % (A) 0 %; HCT 38.2 % (39.0-53.0); HGB 12.7 gm/dL (13.0-17.5); Lymphocytes # (A) 0.8 k/uL (1.0-4.8); Lymphocytes % (A) 13 %; MCH 30.8 pg (25.0-35.0); MCHC 33.3 g/dL (31.0-37.0); MCV 92.5 fL (80.0-100.0); Mean Platelet Volume 9.2; Monocytes # (A) 0.4 k/uL (0-1.0); Monocytes % (A) 7 %; Neutrophils # (A) 4.7 k/uL (1.3-7.7); Neutrophils % (A) 78 %; Platelet Count 161 k/uL (150-450); RBC 4.12 m/uL (4.30-5.90); RDW 13.8 % (11.5-15.5)
[2024-06-16 08:25] LABS: African American GFR (CKD) 61 (>60 ml/min/1.73 sqM); Anion Gap 10 mmol/L; Blood Urea Nitrogen 21 mg/dL (9-20); Calcium 7.3 mg/dL (8.4-10.2); Carbon Dioxide 26 mmol/L (22-30); Chloride 102 mmol/L (98-107); Glucose 150 mg/dL (74-99); Non-African American GFR(CKD) 53 (>60 ml/min/1.73 sqM); Sodium 138 mmol/L (137-145)
[2024-06-16 08:36] LABS: Magnesium 1.6 mg/dL (1.6-2.3); Potassium 3.1 mmol/L (3.5-5.1)
[2024-06-16] MEDS: metroNIDAZOLE 500 MG TAB PO SCH (09:02)
--- NOTE | 2024-06-16 09:39 | P.PN ---
Subjective Progress Note Date: 06/16/24 Pt reports his breathing is much better, denies pain at this time. Tolerating room air. Gen: In NAD, non-toxic HEENT: normocephalic, atraumatic, hearing acuity is intant, mucous membranes moist CVS: perfusing all extremities well, no pitting edema, Respiratory: symmetric chest expansion, no accessory muscle use, GI: soft, NTTP, ND, : no suprapubic tenderness, no CVA tenderness MSK/Derm: no rashes, cyanosis Neuro: CN II-XII intact, no motor weakness, Psych: cooperative, euthymic mood, judgment and insight is intact Hospital course: 68-year-old male with a past medical history of diabetic foot ulcer with osteomyelitis on vancomycin and Flagyl at home, hypertension, type 2 diabetes, hyperlipidemia, and COPD presents with fever, altered mental status, and weakness. Initial lab work from the ER was significant for WBC 7.9, hemoglobin 16.5, VBG pH 7.44, VBG bicarb 29, creatinine 1.46, glucose 210, alkaline phosphatase 128, troponin 2.24--> 1.09. EKG done in the ER showed heart rate of 108 bpm, no ST segment elevation or depression seen, no T-wave inversions seen. Sinus tach, possible left atrial enlargement, right axis deviation, QTc 457. ER CXR: Appear to be wet. Assessment & Plan: Acute: #Sepsis # Diabetic foot ulcer with osteomyelitis Currently on daptomycin, metronidazole ID on consult, appreciate further recommendations - wound care consult - BCx NGTD #Elevated troponins/rule out ACS: # Elevated BNP # Acute Pulmonary Embolism Troponin on admission 2.24--> 1.71 transitioned to apixaban Cardiology on consult, appreciate further recommendations Recent echo from last admission showed EF of 40% Echo ordered, follow-up on results Cardio recommends cardiac cath once patient is medically stable. - CT angiography was positive for PE #SKYLA: #Acute on chronic systolic CHF, ejection fraction 40%: #Acute hypoxemic respiratory failure #COVID-19 Decrease fluids to 10 cc/h, in the setting of fluid overload Continue Lasix 40 mg IV twice daily, transitioned to PO lasix 40mg daily Strict I's and O's Daily weights Cardio on consult Continue to monitor - started on remdesivir Chronic: #Type 2 Diabetes Placed on sliding scale Accu-Cheks #COPD: Continue home medications F: NS 10 cc/h E: None N: Regular diet A: Wheelchair DVT ppx: apixaban starting tonight GI ppx: Protonix 40 mg IV daily Dispo: Pending clinical course Objective - Vital Signs Vital signs: Vital Signs Temp 98.9 F 06/16/24 09:01 Pulse 78 06/16/24 09:01 Resp 18 06/16/24 09:01 BP 125/79 06/16/24 09:01 Pulse Ox 98 06/16/24 09:01 FiO2 50 06/15/24 08:15 Intake & Output 06/15/24 06/16/24 06/16/24 18:59 06:59 18:59 Intake Total 428.055 226.4 52.5 Output Total 2700 5 575 Balance -2271.945 -1798.6 -522.5 Weight 99 kg Intake: IV 20 20 Invasive Line 4 20 20 Intake, IV Titration 168.055 206.4 52.5 Amount Heparin Sod,Pork in 0.45% 206.4 52.5 NaCl 25,000 unit In 0.45 % NaCl 1 250ml.bag @ 18 UNITS/KG/HR 18 mls/hr IV .[id number] [facility] Rx#: [id number] Heparin Sod,Pork in 0.45% 168.055 NaCl 25,000 unit In 0.45 % NaCl 1 250ml.bag @ 8. 819 UNITS/KG/HR 10.001 mls/hr IV .Q24H [facility] Rx#: [id number] Oral 240 Output: Urine 2700 5 575 Other: Voiding Method Indwelling Catheter Indwelling Catheter - Labs CBC & Chem 7: 06/16/24 06:23 06/16/24 06:23 Labs: Abnormal Lab Results - Last 24 Hours (Table) 06/15/24 06/15/24 06/15/24 Range/Units 11:31 16:29 19:42 RBC (4.30-5.90) m/uL Hgb (13.0-17.5) gm/dL Hct (39.0-53.0) % Lymphocytes # (1.0-4.8) k/uL APTT >200.0 H* (22.0-30.0) sec Potassium (3.5-5.1) mmol/L BUN (9-20) mg/dL Creatinine (0.66-1.25) mg/dL Glucose (74-99) mg/dL POC Glucose (mg/dL) 158 H 181 H (70-110) mg/dL Calcium (8.4-10.2) mg/dL 06/15/24 06/16/24 06/16/24 Range/Units 20:20 05:49 06:23 RBC 4.12 L (4.30-5.90) m/uL Hgb 12.7 L (13.0-17.5) gm/dL Hct 38.2 L (39.0-53.0) % Lymphocytes # 0.8 L (1.0-4.8) k/uL APTT (22.0-30.0) sec Potassium (3.5-5.1) mmol/L BUN (9-20) mg/dL Creatinine (0.66-1.25) mg/dL Glucose (74-99) mg/dL POC Glucose (mg/dL) 167 H 179 H (70-110) mg/dL Calcium (8.4-10.2) mg/dL 06/16/24 06/16/24 Range/Units 06:23 06:23 RBC (4.30-5.90) m/uL Hgb (13.0-17.5) gm/dL Hct (39.0-53.0) % Lymphocytes # (1.0-4.8) k/uL APTT >200.0 H* (22.0-30.0) sec Potassium 3.1 L (3.5-5.1) mmol/L BUN 21 H (9-20) mg/dL Creatinine 1.37 H (0.66-1.25) mg/dL Glucose 150 H (74-99) mg/dL POC Glucose (mg/dL) (70-110) mg/dL Calcium 7.3 L (8.4-10.2) mg/dL Microbiology - Last 24 Hours (Table) 06/14/24 22:56 Blood Culture - Preliminary Blood 06/13/24 21:49 Blood Culture - Preliminary Blood
[2024-06-16] MEDS: FUROSEMIDE 10 MG/ML 4 ML VIAL IV STA (10:10)
[2024-06-16] MEDS: Apixaban Initiation Dose--VTE 5 MG TAB PO SCH (10:10)
--- NOTE | 2024-06-16 11:14 | P.PN ---
Subjective Progress Note Date: 06/15/24 HISTORY OF PRESENT ILLNESS: This is a 68-year-old male with a past medical history significant for dementia, carotid stenosis, hypertension, diabetes, TIA, nicotine dependence, left toe amputations, and left foot wound. Patient follows in the office with Dr. Frias. We have been asked to see the patient in consultation for elevated troponins. Patient examined at the bedside in the emergency room. Patient was brought to the hospital from [facility]. According to the ER physician note, the patient was brought into the hospital for altered mental status. The patient states he is unsure of why he was brought to the hospital. The patient's nurse this morning reports that she was told the patient was having chest pain when he came in. At the time of examination, the patient denies hav ing any chest pain or pressure. He denies any shortness of breath. He does report feeling confused this morning. He was found to have elevated troponins and was started on IV heparin. It is noted that the patient was hospitalized at the end of April 2024 due to syncope from orthostatic hypotension, acute encephalopathy, and left foot osteomyelitis DIAGNOSTICS: - EKG reveals sinus tachycardia with right bundle branch block. - Chest xray negative for acute process - Laboratory data: WBC 6.74. Hemoglobin 12.7. Platelet count 179. Sodium 141. Potassium 4.1. BUN 17. Creatinine 1.5. Magnesium 1.8. proBNP 14,200. Troponin 2.240. 1.710. - Current home cardiac medications include lisinopril 20 mg daily, metoprolol tartrate 25 mg twice a day, aspirin 81 mg daily, Lipitor 80 mg at night - Limited echocardiogram performed in April 2024 revealed ejection fraction 40% with global hypokinesis, mild MR - Cardiac catheterization history: unknown Progress note 06/15/2024 Patient CTA was done which showed small subsegmental PE. He is also COVID- positive. His echo showed an EF of 35%. He appears euvolemic. PHYSICAL EXAM: VITAL SIGNS: Reviewed. GENERAL: Well-developed in no acute distress. HEENT: Head is normocephalic. Pupils are equal, round. Sclerae anicteric. Mucous membranes of the mouth are moist. Neck supple. No JVD or thyromegaly LUNGS: Respirations even and unlabored. Lungs essentially clear to auscultation bilaterally. HEART: Regular rate and rhythm. S1 and S2 heard. ABDOMEN: Soft. Nondistended. Nontender. EXTREMITIES: Normal range of motion. No clubbing or cyanosis. Peripheral pulses intact. Left wound foot with dressing noted. NEUROLOGIC: Awake and alert. Patient confused. ASSESSMENT: Altered mental status Left foot wound with possible osteomyelitis, recently hospitalized 04/2024 History of left big toe and second toe amputation Non-STEMI Cardiomyopathy, EF 40%, ischemic versus nonischemic, repeat echo pending Acute kidney injury 100% left internal carotid artery stenosis, follows with vascular surgery History of orthostatic hypotension and dysautonomia Hypertension Hyperlipidemia Diabetes History of TIA Nicotine dependence PLAN: Continue IV heparin Resume home cardiac medications Continue aspirin 81 mg daily and atorvastatin 80 mg at night Infectious disease consulted for left foot wound. Await evaluation. Consider cardiac catheterization when patient is medically stable due to elevated troponins and cardiomyopathy noted on echocardiogram last month Smoking cessation recommended. Patient to be referred to [place] quit line upon discharge. Further recommendations pending patient course Objective - Vital Signs Vital signs: Vital Signs Temp 98.9 F 06/16/24 09:01 Pulse 78 06/16/24 09:01 Resp 18 06/16/24 09:01 BP 125/79 06/16/24 09:01 Pulse Ox 98 06/16/24 09:01 FiO2 50 06/15/24 08:15 Intake & Output 06/15/24 06/16/24 06/16/24 18:59 06:59 18:59 Intake Total 428.055 226.4 72.5 Output Total 2700 2025 575 Balance -2271.945 -1798.6 -502.5 Weight 99 kg Intake: IV 20 20 20 Invasive Line 2 10 Invasive Line 3 10 Invasive Line 4 20 20 Intake, IV Titration 168.055 206.4 52.5 Amount Heparin Sod,Pork in 0.45% 206.4 52.5 NaCl 25,000 unit In 0.45 % NaCl 1 250ml.bag @ 18 UNITS/KG/HR 18 mls/hr IV .[id number] [facility] Rx#: [id number] Heparin Sod,Pork in 0.45% 168.055 NaCl 25,000 unit In 0.45 % NaCl 1 250ml.bag @ 8. 819 UNITS/KG/HR 10.001 mls/hr IV .Q24H [facility] Rx#: [id number] Oral 240 Output: Urine 0474 8875 903 Other: Voiding Method Indwelling Catheter Indwelling Catheter Indwelling Catheter - Labs CBC & Chem 7: 06/16/24 06:23 06/16/24 06:23 Labs: Abnormal Lab Results - Last 24 Hours (Table) 06/15/24 06/15/24 06/15/24 Range/Units 11:31 16:29 19:42 RBC (4.30-5.90) m/uL Hgb (13.0-17.5) gm/dL Hct (39.0-53.0) % Lymphocytes # (1.0-4.8) k/uL APTT >200.0 H* (22.0-30.0) sec Potassium (3.5-5.1) mmol/L BUN (9-20) mg/dL Creatinine (0.66-1.25) mg/dL Glucose (74-99) mg/dL POC Glucose (mg/dL) 158 H 181 H (70-110) mg/dL Calcium (8.4-10.2) mg/dL 06/15/24 06/16/24 06/16/24 Range/Units 20:20 05:49 06:23 RBC 4.12 L (4.30-5.90) m/uL Hgb 12.7 L (13.0-17.5) gm/dL Hct 38.2 L (39.0-53.0) % Lymphocytes # 0.8 L (1.0-4.8) k/uL APTT (22.0-30.0) sec Potassium (3.5-5.1) mmol/L BUN (9-20) mg/dL Creatinine (0.66-1.25) mg/dL Glucose (74-99) mg/dL POC Glucose (mg/dL) 167 H 179 H (70-110) mg/dL Calcium (8.4-10.2) mg/dL 06/16/24 06/16/24 Range/Units 06:23 06:23 RBC (4.30-5.90) m/uL Hgb (13.0-17.5) gm/dL Hct (39.0-53.0) % Lymphocytes # (1.0-4.8) k/uL APTT >200.0 H* (22.0-30.0) sec Potassium 3.1 L (3.5-5.1) mmol/L BUN 21 H (9-20) mg/dL Creatinine 1.37 H (0.66-1.25) mg/dL Glucose 150 H (74-99) mg/dL POC Glucose (mg/dL) (70-110) mg/dL Calcium 7.3 L (8.4-10.2) mg/dL Microbiology - Last 24 Hours (Table) 06/14/24 22:56 Blood Culture - Preliminary Blood 06/13/24 21:49 Blood Culture - Preliminary Blood
--- NOTE | 2024-06-16 11:16 | P.PN ---
Subjective Progress Note Date: 06/16/24 HISTORY OF PRESENT ILLNESS: This is a 68-year-old male with a past medical history significant for dementia, carotid stenosis, hypertension, diabetes, TIA, nicotine dependence, left toe amputations, and left foot wound. Patient follows in the office with Dr. Frias. We have been asked to see the patient in consultation for elevated troponins. Patient examined at the bedside in the emergency room. Patient was brought to the hospital from [facility]. According to the ER physician note, the patient was brought into the hospital for altered mental status. The patient states he is unsure of why he was brought to the hospital. The patient's nurse this morning reports that she was told the patient was having chest pain when he came in. At the time of examination, the patient denies hav ing any chest pain or pressure. He denies any shortness of breath. He does report feeling confused this morning. He was found to have elevated troponins and was started on IV heparin. It is noted that the patient was hospitalized at the end of April 2024 due to syncope from orthostatic hypotension, acute encephalopathy, and left foot osteomyelitis DIAGNOSTICS: - EKG reveals sinus tachycardia with right bundle branch block. - Chest xray negative for acute process - Laboratory data: WBC 6.74. Hemoglobin 12.7. Platelet count 179. Sodium 141. Potassium 4.1. BUN 17. Creatinine 1.5. Magnesium 1.8. proBNP 14,200. Troponin 2.240. 1.710. - Current home cardiac medications include lisinopril 20 mg daily, metoprolol tartrate 25 mg twice a day, aspirin 81 mg daily, Lipitor 80 mg at night - Limited echocardiogram performed in April 2024 revealed ejection fraction 40% with global hypokinesis, mild MR - Cardiac catheterization history: unknown Progress note 06/16/2024 BP 125/79, heart rate 83 bpm, sinus rhythm on telemetry. No major arrhythmias noticed. There is euvolemic. PHYSICAL EXAM: VITAL SIGNS: Reviewed. GENERAL: Well-developed in no acute distress. HEENT: Head is normocephalic. Pupils are equal, round. Sclerae anicteric. Mucous membranes of the mouth are moist. Neck supple. No JVD or thyromegaly LUNGS: Respirations even and unlabored. Lungs essentially clear to auscultation bilaterally. HEART: Regular rate and rhythm. S1 and S2 heard. ABDOMEN: Soft. Nondistended. Nontender. EXTREMITIES: Normal range of motion. No clubbing or cyanosis. Peripheral puls es intact. Left wound foot with dressing noted. NEUROLOGIC: Awake and alert. Patient confused. ASSESSMENT: Altered mental status Left foot wound with possible osteomyelitis, recently hospitalized 04/2024 History of left big toe and second toe amputation Non-STEMI Acute subsegmental pulmonary embolism, bilateral likely provoked COVID-19 Cardiomyopathy, EF 40%, ischemic versus nonischemic, repeat echo pending Acute kidney injury 100% left internal carotid artery stenosis, follows with vascular surgery History of orthostatic hypotension and dysautonomia Hypertension Hyperlipidemia Diabetes History of TIA Nicotine dependence PLAN: On Eliquis PE dosing Continue aspirin 81 mg daily and atorvastatin 80 mg at night Start lisinopril 2.5 mL daily, Farxiga 10 mg daily. Reduce Lasix to 20 mg daily. Continue metoprolol 25 mg twice daily Infectious disease consulted for left foot wound. Await evaluation. Consider cardiac catheterization when patient is medically stable due to elevated troponins and cardiomyopathy Smoking cessation recommended. Patient to be referred to [place] quit line upon discharge. Further recommendations pending patient course Objective - Vital Signs Vital signs: Vital Signs Temp 98.9 F 06/16/24 09:01 Pulse 78 06/16/24 09:01 Resp 18 06/16/24 09:01 BP 125/79 06/16/24 09:01 Pulse Ox 98 06/16/24 09:01 FiO2 50 06/15/24 08:15 Intake & Output 06/15/24 06/16/24 06/16/24 18:59 06:59 18:59 Intake Total 428.055 226.4 72.5 Output Total 2700 2025 575 Balance -2271.945 -1798.6 -502.5 Weight 99 kg Intake: IV 20 20 20 Invasive Line 2 10 Invasive Line 3 10 Invasive Line 4 20 20 Intake, IV Titration 168.055 206.4 52.5 Amount Heparin Sod,Pork in 0.45% 206.4 52.5 NaCl 25,000 unit In 0.45 % NaCl 1 250ml.bag @ 18 UNITS/KG/HR 18 mls/hr IV .[id number] [facility] Rx#: [id number] Heparin Sod,Pork in 0.45% 168.055 NaCl 25,000 unit In 0.45 % NaCl 1 250ml.bag @ 8. 819 UNITS/KG/HR 10.001 mls/hr IV .Q24H [facility] Rx#: [id number] Oral 240 Output: Urine 6530 0804 575 Other: Voiding Method Indwelling Catheter Indwelling Catheter Indwelling Catheter - Labs CBC & Chem 7: 06/16/24 06:23 06/16/24 06:23 Labs: Abnormal Lab Results - Last 24 Hours (Table) 06/15/24 06/15/24 06/15/24 Range/Units 11:31 16:29 19:42 RBC (4.30-5.90) m/uL Hgb (13.0-17.5) gm/dL Hct (39.0-53.0) % Lymphocytes # (1.0-4.8) k/uL APTT >200.0 H* (22.0-30.0) sec Potassium (3.5-5.1) mmol/L BUN (9-20) mg/dL Creatinine (0.66-1.25) mg/dL Glucose (74-99) mg/dL POC Glucose (mg/dL) 158 H 181 H (70-110) mg/dL Calcium (8.4-10.2) mg/dL 06/15/24 06/16/24 06/16/24 Range/Units 20:20 05:49 06:23 RBC 4.12 L (4.30-5.90) m/uL Hgb 12.7 L (13.0-17.5) gm/dL Hct 38.2 L (39.0-53.0) % Lymphocytes # 0.8 L (1.0-4.8) k/uL APTT (22.0-30.0) sec Potassium (3.5-5.1) mmol/L BUN (9-20) mg/dL Creatinine (0.66-1.25) mg/dL Glucose (74-99) mg/dL POC Glucose (mg/dL) 167 H 179 H (70-110) mg/dL Calcium (8.4-10.2) mg/dL 06/16/24 06/16/24 Range/Units 06:23 06:23 RBC (4.30-5.90) m/uL Hgb (13.0-17.5) gm/dL Hct (39.0-53.0) % Lymphocytes # (1.0-4.8) k/uL APTT >200.0 H* (22.0-30.0) sec Potassium 3.1 L (3.5-5.1) mmol/L BUN 21 H (9-20) mg/dL Creatinine 1.37 H (0.66-1.25) mg/dL Glucose 150 H (74-99) mg/dL POC Glucose (mg/dL) (70-110) mg/dL Calcium 7.3 L (8.4-10.2) mg/dL Microbiology - Last 24 Hours (Table) 06/14/24 22:56 Blood Culture - Preliminary Blood 06/13/24 21:49 Blood Culture - Preliminary Blood
[2024-06-16 11:27] LABS: Glucose,Whole Blood 135 mg/dL (70-110)
[2024-06-16] MEDS: DAPAGLIFLOZIN PROPANEDIOL 10 MG TABLET PO SCH (14:18)
[2024-06-16] MEDS: POTASSIUM CHLORIDE ER 20 MEQ TAB.ER PO STA (14:18)
[2024-06-16] MEDS: MAGNESIUM SULFATE-D5W PMX 1 GM in DEXTROSE/WATER 1 100ML.BAG IVPB SCH (15:12)
[2024-06-16 16:27] LABS: Glucose,Whole Blood 163 mg/dL (70-110)
[2024-06-16 20:42] LABS: Glucose,Whole Blood 155 mg/dL (70-110)
--- NOTE | 2024-06-16 21:15 | P.PN ---
Subjective Progress Note Date: 06/16/24 Principal diagnosis: Reason for follow-up is a COVID-19 pneumonia and left big toe amputation site osteomyelitis Patient is a 68-year-old male with a past medical history difficult for diabetes mellitus osteoarthritis neuropathy he did have a history of diabetic foot infection requiring amputation of the right first and second toe the patient second toe amputation with a recent admission to the hospital with right big toe potation site wound infection osteomyelitis with MRSA and Robina stahl debbiemonserrat was getting outpatient antibiotic presented to hospital now with mental status changes fever did shows evidence of COVID-19 infection. On today's evaluation that is 06/16/2024, the patient continues to be afebrile, the patient is on 2 L nasal oxygen and breathing comfortably, the Pt denies having any chest pain or any worsening cough, the patient denies having any abdominal pain no vomiting or any diarrhea has been reported by the nursing staff. Patient white count 6.0, creatinine is 1.37 blood cultures are pending Objective - Vital Signs Vital signs: Vital Signs Temp 98.7 F 06/16/24 12:36 Pulse 79 06/16/24 12:36 Resp 18 06/16/24 12:36 BP 127/74 06/16/24 12:36 Pulse Ox 94 L 06/16/24 12:36 FiO2 50 06/15/24 08:15 Intake & Output 06/15/24 06/16/24 06/16/24 18:59 06:59 18:59 Intake Total 428.055 226.4 72.5 Output Total 2700 2025 1450 Balance -2271.945 -1798.6 -1377.5 Weight 99 kg Intake: IV 20 20 20 Invasive Line 2 10 Invasive Line 3 10 Invasive Line 4 20 20 Intake, IV Titration 168.055 206.4 52.5 Amount Heparin Sod,Pork in 0.45% 206.4 52.5 NaCl 25,000 unit In 0.45 % NaCl 1 250ml.bag @ 18 UNITS/KG/HR 18 mls/hr IV .[id number] [facility] Rx#: [id number] Heparin Sod,Pork in 0.45% 168.055 NaCl 25,000 unit In 0.45 % NaCl 1 250ml.bag @ 8. 819 UNITS/KG/HR 10.001 mls/hr IV .Q24H [facility] Rx#: [id number] Oral 240 Output: Urine 8640 2024 1450 Other: Voiding Method Indwelling Catheter Indwelling Catheter Indwelling Catheter - Exam GENERAL DESCRIPTION: An elderly male lying in bed in no distress RESPIRATORY SYSTEM: Unlabored breathing , decreased breath sounds at bases HEART: S1 S2 regular rate and rhythm , ABDOMEN: Soft , no tenderness EXTREMITIES: No edema feet - Labs CBC & Chem 7: 06/16/24 06:23 06/16/24 06:23 Labs: Abnormal Lab Results - Last 24 Hours (Table) 06/15/24 06/15/24 06/15/24 Range/Units 16:29 19:42 20:20 RBC (4.30-5.90) m/uL Hgb (13.0-17.5) gm/dL Hct (39.0-53.0) % Lymphocytes # (1.0-4.8) k/uL APTT >200.0 H* (22.0-30.0) sec Potassium (3.5-5.1) mmol/L BUN (9-20) mg/dL Creatinine (0.66-1.25) mg/dL Glucose (74-99) mg/dL POC Glucose (mg/dL) 181 H 167 H (70-110) mg/dL Calcium (8.4-10.2) mg/dL 06/16/24 06/16/24 06/16/24 Range/Units 05:49 06:23 06:23 RBC 4.12 L (4.30-5.90) m/uL Hgb 12.7 L (13.0-17.5) gm/dL Hct 38.2 L (39.0-53.0) % Lymphocytes # 0.8 L (1.0-4.8) k/uL APTT (22.0-30.0) sec Potassium 3.1 L (3.5-5.1) mmol/L BUN 21 H (9-20) mg/dL Creatinine 1.37 H (0.66-1.25) mg/dL Glucose 150 H (74-99) mg/dL POC Glucose (mg/dL) 179 H (70-110) mg/dL Calcium 7.3 L (8.4-10.2) mg/dL 06/16/24 06/16/24 Range/Units 06:23 11:25 RBC (4.30-5.90) m/uL Hgb (13.0-17.5) gm/dL Hct (39.0-53.0) % Lymphocytes # (1.0-4.8) k/uL APTT >200.0 H* (22.0-30.0) sec Potassium (3.5-5.1) mmol/L BUN (9-20) mg/dL Creatinine (0.66-1.25) mg/dL Glucose (74-99) mg/dL POC Glucose (mg/dL) 135 H (70-110) mg/dL Calcium (8.4-10.2) mg/dL Microbiology - Last 24 Hours (Table) 06/14/24 22:56 Blood Culture - Preliminary Blood 06/13/24 21:49 Blood Culture - Preliminary Blood Assessment and Plan (1) Fever Current Visit: Yes Status: Acute Code(s): R50.9 - FEVER, UNSPECIFIED SNOMED Code(s): 209193152 (2) Osteomyelitis of left foot Current Visit: Yes Status: Acute Code(s): M86.9 - OSTEOMYELITIS, UNSPECIFIED SNOMED Code(s): 5902359614234720 (3) Pneumonia due to COVID-19 virus Current Visit: Yes Status: Acute Code(s): U07.1 - COVID-19; J12.82 - PNEUMONIA DUE TO CORONAVIRUS DISEASE 2018 SNOMED Code(s): 183590403304980466 Plan: 1patient presented to hospital with fever and mental status changes in this patient who was getting outpatient vancomycin pharmacy to dose for his a left big toe amputation site wound/osteomyelitis patient did have a low-grade fever however he did have normal white count overall left big toe amputation site wound is healing however the patient did have low vancomycin trough with question of possible noncompliance with his outpatient vancomycin for possible viral syndrome as a chest x-ray reported negative for acute infiltrate UA has not been significantly positive either 2-patient COVID-19 PCR came back positive CT angiogram did shows evidence of PE and groundglass opacity suggestive of COVID-19 pneumonia 4-patient was started on remdesivir because of the COVID-19 pneumonia seen on the CT and the patient was hypoxic requiring 5 L nasal oxygen yesterday however is currently down to 2 L nasal current oxygen will continue and monitor his clinical course closely 5patient to continue with daptomycin will add oral Flagyl for his left big toe osteomyelitis Dictation was produced using [employer] dictation software. please excuse any grammatical, word or spelling errors. Time with Patient: Less than 30
[2024-06-16] MEDS: REMDESIVIR 100 MG in SODIUM CHLORIDE 0.9% 250 ML IVPB SCH (22:07)
[2024-06-17 06:32] LABS: Glucose,Whole Blood 137 mg/dL (70-110)
[2024-06-17 06:34] LABS: Basophils % (A) 0 %; Eosinophils % (A) 0 %; HCT 41.9 % (39.0-53.0); HGB 13.5 gm/dL (13.0-17.5); Lymphocytes # (A) 0.6 k/uL (1.0-4.8); Lymphocytes % (A) 11 %; MCH 29.1 pg (25.0-35.0); MCHC 32.2 g/dL (31.0-37.0); MCV 90.4 fL (80.0-100.0); Mean Platelet Volume 8.8; Monocytes # (A) 0.5 k/uL (0-1.0); Monocytes % (A) 9 %; Neutrophils # (A) 4.6 k/uL (1.3-7.7); Neutrophils % (A) 79 %; Platelet Count 171 k/uL (150-450); RBC 4.64 m/uL (4.30-5.90); RDW 13.7 % (11.5-15.5); WBC 5.9 k/uL (3.8-10.6)
[2024-06-17 06:50] LABS: African American GFR (CKD) 66 (>60 ml/min/1.73 sqM); Anion Gap 10 mmol/L; Blood Urea Nitrogen 21 mg/dL (9-20); Calcium 7.6 mg/dL (8.4-10.2); Carbon Dioxide 29 mmol/L (22-30); Chloride 99 mmol/L (98-107); Glucose 130 mg/dL (74-99); Magnesium 2.3 mg/dL (1.6-2.3); Non-African American GFR(CKD) 57 (>60 ml/min/1.73 sqM); Potassium 3.3 mmol/L (3.5-5.1); Sodium 138 mmol/L (137-145)
[2024-06-17] MEDS: POTASSIUM CHLORIDE ER 20 MEQ TAB.ER PO STA (08:29)
[2024-06-17] MEDS: FUROSEMIDE 20 MG TAB PO SCH (08:30)
[2024-06-17] MEDS ORDERED: FUROSEMIDE 40 MG TAB PO SCH (09:00)
--- NOTE | 2024-06-17 09:17 | CDI ---
Documentation Clarification Form Date: 06/17/2024 From: Renetta Rudd RN CCDS Phone: [phone] Admit Date: 06/13/2024 08:12:00 PM Patient Name: Roberto Cage Visit Number: [id number] Discharge Date: ATTENTION: The Clinical Documentation Specialists (CDI) and [facility] Coding Staff appreciate your assistance in clarifying documentation. Please respond to the clarification below the line at the bottom and electronically sign. The CDI & [facility] Coding staff will review the response and follow-up if needed. Please note: Queries are made part of the Legal Health Record. If you have any questions, please contact the author of this message via ITS. Doctor/Provider: Araseli Aguilar MD: Your patient has the documented symptom of Altered Mental Status in the ED note 06/13 and in subsequent notes. Additional clarification regarding the etiology/cause of this symptom is requested. History/Risk Factors: 68-year-old male with a history of HTN, DM2, and COPD who presents with fever, altered mental status and weakness Clinical Indicators: 06/13 ED note, Clinical Impression: "Osteomyelitis of left foot, Diabetic foot infection, Diabetic foot ulcer, Altered mental status, Fever" 06/14 Cardiology consult, Assessment: "Altered mental status" 06/14 H&P, Assessment: "Sepsis, Respiratory alkalosis, SKYLA" 06/13 Ammonia:<9 06/13 VBG pH: 7.44, pCO2: 43, HCO3: 29 06/14 ABG: pH: 7.37, pCO2: 39, pO2: 70, HCO3: 23, Total CO2: 94.8, Base Excess: -2.4 06/13-06/17 BUN: 18, 17.5, 22, 21, 21 Creatinine: 1.46, 1.5, 1.51, 1.37, 1.28 06/13-06/17 Calcium: 8.9, 7.5, 7.5, 7.3, 7.6 06/14 C-Reactive Protein: 5.9 Procalcitonin: 0.81 06/15 SARS-CoV-2(PCR): Detected 06/15 CTA CHEST, Impression: "1. Suspect small subsegmental bilateral upper lobe pulmonary emboli. 2. Small bilateral pleural effusions and bibasilar ground glass opacities." Treatment: Daptomycin 650mg IV [id number] start 06/14 Flagyl 500mg IV PO TID 06/16-06/17 Zosyn 3.375gram IV [id number] start 06/14 Cleocin 600mg IV [id number] start 06/14 Remdesivir 200mg IV once 06/15 then 100mg IV daily start 06/16 Please clarify the etiology of the symptom of Altered Mental Status: [ x ] Metabolic Encephalopathy due to Respiratory alkalosis, SKYLA [ ] Other condition (please specify) [ ] Unable to determine MTDD
[2024-06-17 11:45] LABS: Glucose,Whole Blood 159 mg/dL (70-110)
--- NOTE | 2024-06-17 12:32 | P.PN ---
Subjective Progress Note Date: 06/17/24 HISTORY OF PRESENT ILLNESS: This is a 68-year-old male with a past medical history significant for dementia, carotid stenosis, hypertension, diabetes, TIA, nicotine dependence, left toe amputations, and left foot wound. Patient follows in the office with Dr. Frias. We have been asked to see the patient in consultation for elevated troponins. Patient examined at the bedside in the emergency room. Patient was brought to the hospital from [facility]. According to the ER physician note, the patient was brought into the hospital for altered mental status. The patient states he is unsure of why he was brought to the hospital. The patient's nurse this morning reports that she was told the patient was having chest pain when he came in. At the time of examination, the patient denies hav ing any chest pain or pressure. He denies any shortness of breath. He does report feeling confused this morning. He was found to have elevated troponins and was started on IV heparin. It is noted that the patient was hospitalized at the end of April 2024 due to syncope from orthostatic hypotension, acute encephalopathy, and left foot osteomyelitis DIAGNOSTICS: - EKG reveals sinus tachycardia with right bundle branch block. - Chest xray negative for acute process - Laboratory data: WBC 6.74. Hemoglobin 12.7. Platelet count 179. Sodium 141. Potassium 4.1. BUN 17. Creatinine 1.5. Magnesium 1.8. proBNP 14,200. Troponin 2.240. 1.710. - Current home cardiac medications include lisinopril 20 mg daily, metoprolol tartrate 25 mg twice a day, aspirin 81 mg daily, Lipitor 80 mg at night - Limited echocardiogram performed in April 2024 revealed ejection fraction 40% with global hypokinesis, mild MR - Cardiac catheterization history: unknown Progress note 06/16/2024 BP 125/79, heart rate 83 bpm, sinus rhythm on telemetry. No major arrhythmias noticed. There is euvolemic. 06/17 Patient seen and examined. Blood pressure 148/84, heart rate 87, pulse ox 93% on room air. Repeat blood work reveals CBC unremarkable. BUN 21 creatinine 1.28, potassium 3.3. PHYSICAL EXAM: VITAL SIGNS: Reviewed. GENERAL: Well-developed in no acute distress. HEENT: Head is normocephalic. Pupils are equal, round. Sclerae anicteric. Mucous membranes of the mouth are moist. Neck supple. No JVD or thyromegaly LUNGS: Respirations even and unlabored. Lungs essentially clear to auscultation bilaterally. HEART: Regular rate and rhythm. S1 and S2 heard. ABDOMEN: Soft. Nondistended. Nontender. EXTREMITIES: Normal range of motion. No clubbing or cyanosis. Peripheral pulses intact. Left wound foot with dressing noted. NEUROLOGIC: Awake and alert. ASSESSMENT: Altered mental status Left foot wound with possible osteomyelitis, recently hospitalized 04/2024 History of left big toe and second toe amputation Non-STEMI Acute subsegmental pulmonary embolism, bilateral likely provoked COVID-19 Cardiomyopathy, EF 40%, ischemic versus nonischemic, repeat echo pending Acute kidney injury 100% left internal carotid artery stenosis, follows with vascular surgery History of orthostatic hypotension and dysautonomia Hypertension Hyperlipidemia Diabetes History of TIA Nicotine dependence PLAN: On Eliquis PE dosing Continue aspirin 81 mg daily, atorvastatin 80 mg at night, lisinopril 2.5 mL daily, Farxiga 10 mg daily, Lasix to 20 mg daily. Continue metoprolol 25 mg twice daily Infectious disease consulted for left foot wound. Consider cardiac catheterization when patient is medically stable due to elevated troponins and cardiomyopathy Smoking cessation recommended. Patient to be referred to [place] quit line upon discharge. Cardiology will sign off this case and follow on an as-needed basis. Please reconsult for any new concerns. Patient may follow-up in the office in [address] Frias. Nurse practitioner note has been reviewed, I agree with documented findings and plan of care. Patient was seen and examined. Objective - Vital Signs Vital signs: Vital Signs Temp 98 F 06/17/24 04:27 Pulse 87 06/17/24 04:27 Resp 16 06/17/24 04:27 BP 131/73 06/17/24 04:27 Pulse Ox 92 L 06/17/24 04:27 FiO2 50 06/15/24 08:15 Intake & Output 06/16/24 06/17/24 06/17/24 18:59 06:59 18:59 Intake Total 92.5 500 Output Total 1950 800 Balance -1857.5 -300 Weight 99 kg Intake: IV 40 20 Invasive Line 2 20 Invasive Line 3 20 Invasive Line 4 20 Intake, IV Titration 52.5 Amount Heparin Sod,Pork in 0.45% 52.5 NaCl 25,000 unit In 0.45 % NaCl 1 250ml.bag @ 18 UNITS/KG/HR 18 mls/hr IV .[id number] [facility] Rx#: [id number] Oral 480 Output: Urine 1950 800 Straight 800 Other: Voiding Method Indwelling Catheter Indwelling Catheter # Bowel Movements 1 - Labs CBC & Chem 7: 06/17/24 05:18 06/17/24 05:18 Labs: Abnormal Lab Results - Last 24 Hours (Table) 06/16/24 06/16/24 06/16/24 Range/Units 06:23 06:23 11:25 Lymphocytes # (1.0-4.8) k/uL APTT >200.0 H* (22.0-30.0) sec Potassium 3.1 L (3.5-5.1) mmol/L BUN 21 H (9-20) mg/dL Creatinine 1.37 H (0.66-1.25) mg/dL Glucose 150 H (74-99) mg/dL POC Glucose (mg/dL) 135 H (70-110) mg/dL Calcium 7.3 L (8.4-10.2) mg/dL 06/16/24 06/16/24 06/17/24 Range/Units 16:25 20:21 05:18 Lymphocytes # 0.6 L (1.0-4.8) k/uL APTT (22.0-30.0) sec Potassium (3.5-5.1) mmol/L BUN (9-20) mg/dL Creatinine (0.66-1.25) mg/dL Glucose (74-99) mg/dL POC Glucose (mg/dL) 163 H 155 H (70-110) mg/dL Calcium (8.4-10.2) mg/dL 06/17/24 06/17/24 Range/Units 05:18 06:12 Lymphocytes # (1.0-4.8) k/uL APTT (22.0-30.0) sec Potassium 3.3 L (3.5-5.1) mmol/L BUN 21 H (9-20) mg/dL Creatinine 1.28 H (0.66-1.25) mg/dL Glucose 130 H (74-99) mg/dL POC Glucose (mg/dL) 137 H (70-110) mg/dL Calcium 7.6 L (8.4-10.2) mg/dL Microbiology - Last 24 Hours (Table) 06/14/24 22:56 Blood Culture - Preliminary Blood 06/13/24 21:49 Blood Culture - Preliminary Blood
[2024-06-17 14:29] VITALS: BMI 35.2
[2024-06-17 16:34] LABS: Glucose,Whole Blood 158 mg/dL (70-110)
--- NOTE | 2024-06-17 18:14 | P.PN ---
Subjective Progress Note Date: 06/17/24 Subjective: Patient seen and examined at the bedside. Pt reports his breathing is much better, denies pain at this time. Tolerating room air. Gen: In NAD, non-toxic HEENT: normocephalic, atraumatic, hearing acuity is intant, mucous membranes moist CVS: perfusing all extremities well, no pitting edema, Respiratory: symmetric chest expansion, no accessory muscle use, GI: soft, NTTP, ND, : no suprapubic tenderness, no CVA tenderness MSK/Derm: no rashes, cyanosis left foot has first and second toe amputation: Area is not red Mattus with no swelling and very minimal discharge. Wound redressed. Neuro: CN II-XII intact, no motor weakness, Psych: cooperative, euthymic mood, AO x 2 Hospital course: 68-year-old male with a past medical history of diabetic foot ulcer with osteomyelitis on vancomycin and Flagyl at home, hypertension, type 2 diabetes, hyperlipidemia, and COPD presents with fever, altered mental status, and weakness. Initial lab work from the ER was significant for WBC 7.9, hemoglobin 16.5, VBG pH 7.44, VBG bicarb 29, creatinine 1.46, glucose 210, alkaline phosphatase 128, troponin 2.24--> 1.09. EKG done in the ER showed heart rate of 108 bpm, no ST segment elevation or depression seen, no T-wave inversions seen. Sinus tach, possible left atrial enlargement, right axis deviation, QTc 457. ER CXR: Appear to be wet. Assessment & Plan: Acute: #Sepsis, resolved # Diabetic foot ulcer with osteomyelitis Currently on daptomycin, metronidazole ID on consult, appreciate further recommendations - wound care consult - BCx x 2; negative with no growth #Elevated troponins/rule out ACS: # Elevated BNP # Acute Pulmonary Embolism Troponin on admission 2.24--> 1.71 cardiology signed off today; patient to follow-up with cardiology outpatient for possible cardiac catheterization Echocardiogram on 06/14/2024 shows ejection fraction 35 to 40% with mild left ventricle wall thickness. - CT angiography was positive for PE; continue with apixaban 10 mg p.o. twice daily #SKYLA, improving #Acute on chronic systolic CHF, ejection fraction 35 to 40%: #Acute hypoxemic respiratory failure #COVID-19 Decrease fluids to 10 cc/h, in the setting of fluid overload Continue Lasix 20 mg p.o. daily Strict I's and O's Daily weights Cardio on consult Continue to monitor - Continue with remdesivir; in total 5 doses; 3 doses left #Hypokalemia Potassium 3.3 Patient has been given a 40 mEq of potassium chloride once stat Monitor BMP in a.m. tomorrow Chronic: #Type 2 Diabetes Placed on sliding scale Accu-Cheks #COPD: Continue home medications F: NS 10 cc/h E: None N: Regular diet A: Wheelchair DVT ppx: apixaban GI ppx: Protonix 40 mg IV daily Dispo: Pending clinical course I saw and evaluated the patient during the angela and critical portions of this encounter, and discussed the case in detail with the resident author of this note, I agree with the Assessment and Plan, and my changes, if any, are highlighted in blue. Objective - Vital Signs Vital signs: Vital Signs Temp 98.1 F 06/17/24 08:00 Pulse 80 06/17/24 12:01 Resp 18 06/17/24 12:01 BP 132/80 06/17/24 12:01 Pulse Ox 94 L 06/17/24 12:01 FiO2 50 06/15/24 08:15 Intake & Output 06/16/24 06/17/24 06/17/24 18:59 06:59 18:59 Intake Total 92.5 500 490 Output Total 1950 800 500 Balance -1857.5 -300 -10 Weight 99 kg Intake: IV 40 20 10 Invasive Line 2 20 Invasive Line 3 20 Invasive Line 4 20 10 Intake, IV Titration 52.5 Amount Heparin Sod,Pork in 0.45% 52.5 NaCl 25,000 unit In 0.45 % NaCl 1 250ml.bag @ 18 UNITS/KG/HR 18 mls/hr IV .[id number] [facility] Rx#: [id number] Oral 480 480 Output: Urine 1950 800 500 Straight 800 Other: Voiding Method Indwelling Catheter Indwelling Catheter Indwelling Catheter # Bowel Movements 1 - Labs CBC & Chem 7: 06/17/24 05:18 06/17/24 05:18 Labs: Abnormal Lab Results - Last 24 Hours (Table) 06/16/24 06/16/24 06/17/24 Range/Units 16:25 20:21 05:18 Lymphocytes # 0.6 L (1.0-4.8) k/uL Potassium (3.5-5.1) mmol/L BUN (9-20) mg/dL Creatinine (0.66-1.25) mg/dL Glucose (74-99) mg/dL POC Glucose (mg/dL) 163 H 155 H (70-110) mg/dL Calcium (8.4-10.2) mg/dL 06/17/24 06/17/24 06/17/24 Range/Units 05:18 06:12 11:44 Lymphocytes # (1.0-4.8) k/uL Potassium 3.3 L (3.5-5.1) mmol/L BUN 21 H (9-20) mg/dL Creatinine 1.28 H (0.66-1.25) mg/dL Glucose 130 H (74-99) mg/dL POC Glucose (mg/dL) 137 H 159 H (70-110) mg/dL Calcium 7.6 L (8.4-10.2) mg/dL Microbiology - Last 24 Hours (Table) 06/14/24 22:56 Blood Culture - Preliminary Blood 06/13/24 21:49 Blood Culture - Preliminary Blood
[2024-06-17 21:02] LABS: Glucose,Whole Blood 153 mg/dL (70-110)
[2024-06-18 06:37] LABS: Glucose,Whole Blood 154 mg/dL (70-110)
[2024-06-18 08:28] LABS: African American GFR (CKD) 79 (>60 ml/min/1.73 sqM); Anion Gap 13 mmol/L; Blood Urea Nitrogen 24 mg/dL (9-20); Calcium 7.7 mg/dL (8.4-10.2); Carbon Dioxide 23 mmol/L (22-30); Chloride 102 mmol/L (98-107); Glucose 155 mg/dL (74-99); Non-African American GFR(CKD) 69 (>60 ml/min/1.73 sqM); Potassium 3.4 mmol/L (3.5-5.1); Sodium 138 mmol/L (137-145)
[2024-06-18 12:00] LABS: Glucose,Whole Blood 164 mg/dL (70-110)
--- NOTE | 2024-06-18 14:36 | P.PN ---
Subjective Progress Note Date: 06/17/24 Principal diagnosis: Reason for follow-up is a COVID-19 pneumonia and left big toe amputation site osteomyelitis Patient is a 68-year-old male with a past medical history difficult for diabetes mellitus osteoarthritis neuropathy he did have a history of diabetic foot infection requiring amputation of the right first and second toe the patient second toe amputation with a recent admission to the hospital with right big toe potation site wound infection osteomyelitis with MRSA and Robina stahl debbiemonserrat was getting outpatient antibiotic presented to hospital now with mental status changes fever did shows evidence of COVID-19 infection. On today's evaluation that is 06/17/2024, Patient is afebrile patient is currently on room air and denies having any shortness of breath, the patient denies any chest pain, did have occasional dry cough, the patient denies any nausea vomiting did not have any abdominal pain and no diarrhea. Patient did have a white count of 5.9 creatinine is 1.28 Objective - Vital Signs Vital signs: Vital Signs Temp 98.1 F 06/17/24 08:00 Pulse 87 06/17/24 08:00 Resp 16 06/17/24 08:00 BP 148/84 06/17/24 08:00 Pulse Ox 93 L 06/17/24 08:00 FiO2 50 06/15/24 08:15 Intake & Output 06/16/24 06/17/24 06/17/24 18:59 06:59 18:59 Intake Total 92.5 500 490 Output Total 1950 800 500 Balance -1857.5 -300 -10 Weight 99 kg Intake: IV 40 20 10 Invasive Line 2 20 Invasive Line 3 20 Invasive Line 4 20 10 Intake, IV Titration 52.5 Amount Heparin Sod,Pork in 0.45% 52.5 NaCl 25,000 unit In 0.45 % NaCl 1 250ml.bag @ 18 UNITS/KG/HR 18 mls/hr IV .[id number] [facility] Rx#: [id number] Oral 480 480 Output: Urine 1950 800 500 Straight 800 Other: Voiding Method Indwelling Catheter Indwelling Catheter Indwelling Catheter # Bowel Movements 1 - Exam GENERAL DESCRIPTION: An elderly male lying in bed in no distress RESPIRATORY SYSTEM: Unlabored breathing , decreased breath sounds at bases HEART: S1 S2 regular rate and rhythm , ABDOMEN: Soft , no tenderness EXTREMITIES: No edema feet - Labs CBC & Chem 7: 06/17/24 05:18 06/18/24 07:50 Labs: Abnormal Lab Results - Last 24 Hours (Table) 06/16/24 06/16/24 06/17/24 Range/Units 16:25 20:21 05:18 Lymphocytes # 0.6 L (1.0-4.8) k/uL Potassium (3.5-5.1) mmol/L BUN (9-20) mg/dL Creatinine (0.66-1.25) mg/dL Glucose (74-99) mg/dL POC Glucose (mg/dL) 163 H 155 H (70-110) mg/dL Calcium (8.4-10.2) mg/dL 06/17/24 06/17/24 06/17/24 Range/Units 05:18 06:12 11:44 Lymphocytes # (1.0-4.8) k/uL Potassium 3.3 L (3.5-5.1) mmol/L BUN 21 H (9-20) mg/dL Creatinine 1.28 H (0.66-1.25) mg/dL Glucose 130 H (74-99) mg/dL POC Glucose (mg/dL) 137 H 159 H (70-110) mg/dL Calcium 7.6 L (8.4-10.2) mg/dL Microbiology - Last 24 Hours (Table) 06/14/24 22:56 Blood Culture - Preliminary Blood 06/13/24 21:49 Blood Culture - Preliminary Blood Assessment and Plan (1) Fever Current Visit: Yes Status: Acute Code(s): R50.9 - FEVER, UNSPECIFIED SNOMED Code(s): 552536360 (2) Osteomyelitis of left foot Current Visit: Yes Status: Acute Code(s): M86.9 - OSTEOMYELITIS, UNSPECIFIED SNOMED Code(s): 6341705399309152 (3) Pneumonia due to COVID-19 virus Current Visit: Yes Status: Acute Code(s): U07.1 - COVID-19; J12.82 - PNEUMONIA DUE TO CORONAVIRUS DISEASE 2019 SNOMED Code(s): 801106102685967907 Plan: 1patient presented to hospital with fever and mental status changes in this patient who was getting outpatient vancomycin pharmacy to dose for his a left big toe amputation site wound/osteomyelitis patient did have a low-grade fever however he did have normal white count overall left big toe amputation site wound is healing however the patient did have low vancomycin trough with question of possible noncompliance with his outpatient vancomycin for possible viral syndrome as a chest x-ray reported negative for acute infiltrate UA has not been significantly positive either 2-patient COVID-19 PCR came back positive CT angiogram did shows evidence of PE and groundglass opacity suggestive of COVID-19 pneumonia 4-patient did have improvement in his respiratory status, he is currently on remdesivir because of the COVID-19 pneumonia 5patient to continue with daptomycin along with oral Flagyl for his left big toe osteomyelitis Dictation was produced using [employer] dictation software. please excuse any grammatical, word or spelling errors. Time with Patient: Less than 30
--- NOTE | 2024-06-18 14:37 | P.PN ---
Subjective Progress Note Date: 06/18/24 Principal diagnosis: Reason for follow-up is a COVID-19 pneumonia and left big toe amputation site osteomyelitis Patient is a 68-year-old male with a past medical history difficult for diabetes mellitus osteoarthritis neuropathy he did have a history of diabetic foot infection requiring amputation of the right first and second toe the patient second toe amputation with a recent admission to the hospital with right big toe potation site wound infection osteomyelitis with MRSA and Robina stahl debbiemonserrat was getting outpatient antibiotic presented to hospital now with mental status changes fever did shows evidence of COVID-19 infection. On today's evaluation that is 06/18/2024, patient has been afebrile, patient is breathing comfortably and is currently on room air, patient denies having any significant cough no chest pain, patient denies nausea vomiting or diarrhea and no abdominal pain, mention feeling better no new symptoms. Patient did have a creatinine 1.10 blood culture have been negative Objective - Vital Signs Vital signs: Vital Signs Temp 98.8 F 06/18/24 12:58 Pulse 80 06/18/24 12:58 Resp 16 06/18/24 12:58 BP 138/79 06/18/24 12:58 Pulse Ox 93 L 06/18/24 12:58 FiO2 50 06/15/24 08:15 Intake & Output 06/17/24 06/18/24 06/18/24 18:59 06:59 18:59 Intake Total 490 Output Total 500 1000 900 Balance -10 -1000 -900 Weight 99 kg 93.5 kg Intake: IV 10 Invasive Line 4 10 Oral 480 Output: Urine 500 1000 900 Straight 900 Other: Voiding Method Indwelling Catheter Indwelling Catheter Indwelling Catheter # Bowel Movements 1 - Exam GENERAL DESCRIPTION: An elderly male lying in bed in no distress RESPIRATORY SYSTEM: Unlabored breathing , decreased breath sounds at bases HEART: S1 S2 regular rate and rhythm , ABDOMEN: Soft , no tenderness EXTREMITIES: No edema feet - Labs CBC & Chem 7: 06/17/24 05:18 06/18/24 07:50 Labs: Abnormal Lab Results - Last 24 Hours (Table) 06/17/24 06/17/24 06/18/24 Range/Units 16:33 21:00 06:34 Potassium (3.5-5.1) mmol/L BUN (9-20) mg/dL Glucose (74-99) mg/dL POC Glucose (mg/dL) 158 H 153 H 154 H (70-110) mg/dL Calcium (8.4-10.2) mg/dL 06/18/24 06/18/24 Range/Units 07:50 11:58 Potassium 3.4 L (3.5-5.1) mmol/L BUN 24 H (9-20) mg/dL Glucose 155 H (74-99) mg/dL POC Glucose (mg/dL) 164 H (70-110) mg/dL Calcium 7.7 L (8.4-10.2) mg/dL Microbiology - Last 24 Hours (Table) 06/14/24 22:56 Blood Culture - Preliminary Blood Assessment and Plan (1) Fever Current Visit: Yes Status: Acute Code(s): R50.9 - FEVER, UNSPECIFIED SNOMED Code(s): 104602357 (2) Osteomyelitis of left foot Current Visit: Yes Status: Acute Code(s): M86.9 - OSTEOMYELITIS, UNSPECIFIED SNOMED Code(s): 1304364245372283 (3) Pneumonia due to COVID-19 virus Current Visit: Yes Status: Acute Code(s): U07.1 - COVID-19; J12.82 - PNEUMONIA DUE TO CORONAVIRUS DISEASE 2019 SNOMED Code(s): 507522471605747182 Plan: 1patient presented to hospital with fever and mental status changes in this patient who was getting outpatient vancomycin pharmacy to dose for his a left big toe amputation site wound/osteomyelitis patient did have a low-grade fever however he did have normal white count overall left big toe amputation site wound is healing however the patient did have low vancomycin trough with question of possible noncompliance with his outpatient vancomycin for possible viral syndrome as a chest x-ray reported negative for acute infiltrate UA has not been significantly positive either 2-patient COVID-19 PCR came back positive CT angiogram did shows evidence of PE and groundglass opacity suggestive of COVID-19 pneumonia 4-patient did have improvement in his respiratory status, he is currently on remdesivir because of the COVID-19 pneumonia however no need to complete the 5- day course and the patient improved rather quickly 5patient to continue with daptomycin along with oral Flagyl to finish his 6- week course of therapy for his left big toe osteomyelitis Dictation was produced using [employer] dictation software. please excuse any grammatical, word or spelling errors. Time with Patient: Less than 30
[2024-06-18 16:21] LABS: Glucose,Whole Blood 221 mg/dL (70-110)
--- NOTE | 2024-06-18 16:29 | P.DS ---
Providers Date of admission: 06/13/24 20:12 Attending physician: Araseli Aguilar MD Discharge Diagnosis: #Sepsis, resolved #Diabetic foot ulcer with osteomyelitis, improving #Elevated troponin #Elevated BNP #Acute pulmonary embolism #SKYLA improving #Acute on chronic chronic systolic CHF, ejection fraction 35 to 40% #Acute hypoxemic respiratory #COVID-19 positive #Hypokalemia resolved Hospital Course: 68-year-old male with a past medical history of diabetic foot ulcer with osteomyelitis on vancomycin and Flagyl at home, hypertension, type 2 diabetes, hyperlipidemia, and COPD presents with fever, altered mental status, and weakness. Initial lab work from the ER was significant for WBC 7.9, hemoglobin 16.5, VBG pH 7.44, VBG bicarb 29, creatinine 1.46, glucose 210, alkaline phosphatase 128, troponin 2.24--> 1.09. EKG done in the ER showed heart rate of 108 bpm, no ST segment elevation or depression seen, no T-wave inversions seen. Sinus tach, possible left atrial enlargement, right axis deviation, QTc 457. ER CXR: Appear to be wet. Infectious disease was consulted. Patient started on IV daptomycin and p.o. Flagyl. Blood culture was negative. There is noticeable improvement of the diabetic foot ulcer with very minimal discharge and no erythema after the initiation of antibiotic. Cardiology was consulted for concerns regarding congestive heart failure, elevated troponins. Echocardiogram shows ejection fraction of 35 to 40% with mildly increased left ventricle wall thickness. During the course of the hospital patient also developed acute kidney injury. Kidney and bladder ultrasound was ordered which was negative for obstructive uropathy. Patient CTA was done which showed small subsegmental PE. Patient was started on Eliquis. Patient was also tested positive for COVID-19 and was started on remdesivir. Patient is optimized for discharge. Creatinine improving with SKYLA resolved. Patient to follow-up with cardiology outpatient for possible cardiac catheterization. Respiratory status improved. Patient is saturating well on room air and denies denies shortness of breath and chest pain. Patient to be discharged home daptomycin and Flagyl to complete 6 weeks course of left big toe osteomyelitis. Patient to resume home medications as directed. New medication added Lasix 20 mg p.o. daily. Patient to continue with his apixaban 10 mg twice daily for next 5 days and thereafter 5 mg twice daily indefinitely. Advised to see PCP for further management. Discharge instruction: Patient advised to follow-up PCP and infectious disease within 1 week. Patient has provided with instruction on osteomyelitis. Vital signs reviewed. Gen: in no apparent distress, resting comfortably in bed Eyes: PERRL, no scleral injection or icterus HENT: normocephalic, atraumatic, good hearing acuity, moist mucous membranes Neck: full range of motion Resp: CTAB, no rales, rhonchi, or wheezes CVS: normal S1 and S2, no murmurs, rubs or gallops, no edema GI: soft, NTTP, ND, no hepatosplenomegaly : no suprapubic tenderness, no CVAT, pedraza catheter is not present MSK: no clubbing, no cyanosis, no noted contractures of extremities Skin: no noted rashes, petechiae; temperature of skin is appropriate Neuro: moving all extremities without signs of weakness, CN II-XII intact Psych: cooperative, euthymic mood, insight and judgment intact I saw and evaluated the patient during the angela and critical portions of this encounter, and discussed the case in detail with the resident author of this note, I agree with the Assessment and Plan, and my changes, if any, are highlighted in blue. Consults: 06/13/24 20:13 Consult Physician Routine Consulting Provider: Hailey Villegas Consult Reason/Comments: ID Do you want consulting provider notified?: Yes 06/13/24 21:19 Consult Physician Routine Consulting Provider: Alfred Dean Consult Reason/Comments: troponin Do you want consulting provider notified?: Yes Primary care physician: Physician Nonstaff Patient Condition at Discharge: Serious Plan - Discharge Summary Discharge Rx Participant: No New Discharge Prescriptions: New Furosemide [Lasix] 20 mg PO DAILY #14 tab Apixaban [Eliquis] 5 mg PO BID #60 tab Atorvastatin [Lipitor] 80 mg PO HS #30 tab DAPTOmycin [Cubicin] 650 mg IV DAILY #21 each Apixaban Initiation Dose--VTE [Eliquis Initiation Dosing for VTE Treatment] 10 mg PO BID #10 tab Continue Albuterol Inhaler [Ventolin Hfa Inhaler] 3 puff INHALATION RT-Q6H PRN PRN Reason: Shortness Of Breath Aspirin 81 mg PO DAILY tab metroNIDAZOLE [Flagyl] 500 mg PO TID #35 tab Insulin Detemir (Levemir) [Levemir] 17 unit SQ HS each 0.9 % Sodium Chloride [Sodium Chloride Flush] 10 ml IV Q16H lisinopriL [Zestril] 20 mg PO DAILY Nicotine 21Mg/24Hr Patch [Habitrol] 1 patch TRANSDERM DAILY INSULIN ASPART (NovoLOG) [NovoLOG (formulary)] See Protocol SQ ACHS ALPRAZolam [Xanax XR] 1 mg PO BID Metoprolol Tartrate [Lopressor] 25 mg PO Q12H Tamsulosin [Flomax] 0.4 mg PO HS Discontinued Atorvastatin [Lipitor] 80 mg PO HS tab Vancomycin 1,500 mg IVPB Q16H 35 Days each Discharge Medication List Albuterol Inhaler [Ventolin Hfa Inhaler] 3 puff INHALATION RT-Q6H PRN 05/21/24 [History] Aspirin 81 mg PO DAILY tab 05/28/24 [Rx] Insulin Detemir (Levemir) [Levemir] 17 unit SQ HS each 05/28/24 [Rx] metroNIDAZOLE [Flagyl] 500 mg PO TID #35 tab 05/28/24 [Rx] 0.9 % Sodium Chloride [Sodium Chloride Flush] 10 ml IV Q16H 06/13/24 [History] ALPRAZolam [Xanax XR] 1 mg PO BID 06/13/24 [History] INSULIN ASPART (NovoLOG) [NovoLOG (formulary)] See Protocol SQ ACHS 06/13/24 [History] Metoprolol Tartrate [Lopressor] 25 mg PO Q12H 06/13/24 [History] Nicotine 21Mg/24Hr Patch [Habitrol] 1 patch TRANSDERM DAILY 06/13/24 [History] Tamsulosin [Flomax] 0.4 mg PO HS 06/13/24 [History] lisinopriL [Zestril] 20 mg PO DAILY 06/13/24 [History] Apixaban Initiation Dose--VTE [Eliquis Initiation Dosing for VTE Treatment] 10 mg PO BID #10 tab 06/18/24 [Rx] Apixaban [Eliquis] 5 mg PO BID #60 tab 06/18/24 [Rx] Atorvastatin [Lipitor] 80 mg PO HS #30 tab 06/18/24 [Rx] DAPTOmycin [Cubicin] 650 mg IV DAILY #21 each 06/18/24 [Rx] Furosemide [Lasix] 20 mg PO DAILY #14 tab 06/18/24 [Rx] Follow up Appointment(s)/Referral(s): Padma Gomez MD [STAFF PHYSICIAN] - [facility], [REFERRING[facility] - 1 Week Hailey Villegas MD [STAFF PHYSICIAN] - 1 Week Patient Instructions/Handouts: Osteomyelitis (DC) Activity/Diet/Wound Care/Special Instructions: Please follow-up with your PCP and infectious disease within 1 week. Patient to be discharged home daptomycin and Flagyl to complete 6 weeks course of left big toe osteomyelitis. Patient to resume home medications as directed. New medication added Lasix 20 mg p.o. daily. Patient to continue with his apixaban 10 mg twice daily for next 5 days and thereafter 5 mg twice daily indefinitely. Advised to see PCP for further management. Discharge Disposition: HOME WITH HOME HEALTH SERVICES
[2024-06-18 21:17] LABS: Glucose,Whole Blood 211 mg/dL (70-110)
[2024-06-19 04:35] VITALS: PULSE 83; RESP 17
[2024-06-19 06:43] LABS: Glucose,Whole Blood 197 mg/dL (70-110)
[2024-06-19 07:14] VITALS: BP 150/89; TEMP 98.6
[2024-06-19 11:10] LABS: Glucose,Whole Blood 223 mg/dL (70-110)
--- NOTE | 2024-06-19 11:33 | P.DS ---
Providers Date of admission: 06/13/24 20:12 Expected date of discharge: 06/19/24 Attending physician: Araseli Aguilar MD Consults: 06/13/24 20:13 Consult Physician Routine Consulting Provider: Hailey Villegas Consult Reason/Comments: ID Do you want consulting provider notified?: Yes 06/13/24 21:19 Consult Physician Routine Consulting Provider: Alfred Dean Consult Reason/Comments: troponin Do you want consulting provider notified?: Yes Primary care physician: Physician Nonstaff Hospital Course: #Sepsis, resolved #Diabetic foot ulcer with osteomyelitis, improving #Elevated troponin #Elevated BNP #Acute pulmonary embolism #SKYLA improving #Acute on chronic chronic systolic CHF, ejection fraction 35 to 40% #Acute hypoxemic respiratory #COVID-19 positive #Hypokalemia resolved Hospital Course: 68-year-old male with a past medical history of diabetic foot ulcer with osteomyelitis on vancomycin and Flagyl at home, hypertension, type 2 diabetes, hyperlipidemia, and COPD presents with fever, altered mental status, and weakness. Initial lab work from the ER was significant for WBC 7.9, hemoglobin 16.5, VBG pH 7.44, VBG bicarb 29, creatinine 1.46, glucose 210, alkaline phosphatase 128, troponin 2.24--> 1.09. EKG done in the ER showed heart rate of 108 bpm, no ST segment elevation or depression seen, no T-wave inversions seen. Sinus tach, possible left atrial enlargement, right axis deviation, QTc 457. ER CXR: Appear to be wet. Infectious disease was consulted. Patient started on IV daptomycin and p.o. Flagyl. Blood culture was negative. There is noticeable improvement of the diabetic foot ulcer with very minimal discharge and no erythema after the initiation of antibiotic. Cardiology was consulted for concerns regarding congestive heart failure, elevated troponins. Echocardiogram shows ejection fraction of 35 to 40% with mildly increased left ventricle wall thickness. During the course of the hospital patient also developed acute kidney injury. Kidney and bladder ultrasound was ordered which was negative for obstructive uropathy. Patient CTA was done which showed small subsegmental PE. Patient was started on Eliquis. Patient was also tested positive for COVID-19 and was started on remdesivir. Patient is optimized for discharge. Creatinine improving with SKYLA resolved. Patient to follow-up with cardiology outpatient for possible cardiac catheterization. Respiratory status improved. Patient is saturating well on room air and denies denies shortness of breath and chest pain. Patient to be discharged home daptomycin and Flagyl to complete 6 weeks course of left big toe osteomyelitis. Patient to resume home medications as directed. New medication added Lasix 20 mg p.o. daily. Patient to continue with his apixaban 10 mg twice daily for next 5 days and thereafter 5 mg twice daily indefinitely. Advised to see PCP for further management. Discharge instruction: Patient advised to follow-up PCP, cardiology and infectious disease within 1 week. Patient has provided with instruction on osteomyelitis. Vital signs reviewed. Gen: in no apparent distress, resting comfortably in bed Eyes: PERRL, no scleral injection or icterus HENT: normocephalic, atraumatic, good hearing acuity, moist mucous membranes Neck: full range of motion Resp: CTAB, no rales, rhonchi, or wheezes CVS: normal S1 and S2, no murmurs, rubs or gallops, no edema GI: soft, NTTP, ND, no hepatosplenomegaly : no suprapubic tenderness, no CVAT, pedraza catheter is not present MSK: no clubbing, no cyanosis, no noted contractures of extremities Skin: no noted rashes, petechiae; temperature of skin is appropriate Neuro: moving all extremities without signs of weakness, CN II-XII intact Psych: cooperative, euthymic mood, insight and judgment intact A total of 33 minutes of time were spent preparing this complex discharge summary. Patient was discharged on 06/19/2024 at 852. I have seen and evaluated the patient today. Discussed with the resident and agree with the residents finding and plan as documented in the resident's note. Changes highlighted in blue font. Patient Condition at Discharge: Stable Plan - Discharge Summary Discharge Rx Participant: No New Discharge Prescriptions: New Furosemide [Lasix] 20 mg PO DAILY #14 tab Apixaban [Eliquis] 5 mg PO BID #60 tab Atorvastatin [Lipitor] 80 mg PO HS #30 tab Dapagliflozin Propanediol [Farxiga] 10 mg PO DAILY #0 tab DAPTOmycin [Cubicin] 650 mg IV DAILY #21 each Apixaban Initiation Dose--VTE [Eliquis Initiation Dosing for VTE Treatment] 10 mg PO BID #10 tab Spironolactone [Aldactone] 25 mg PO DAILY #7 tablet Continue Albuterol Inhaler [Ventolin Hfa Inhaler] 3 puff INHALATION RT-Q6H PRN PRN Reason: Shortness Of Breath Aspirin 81 mg PO DAILY tab metroNIDAZOLE [Flagyl] 500 mg PO TID #35 tab Insulin Detemir (Levemir) [Levemir] 17 unit SQ HS each 0.9 % Sodium Chloride [Sodium Chloride Flush] 10 ml IV Q16H lisinopriL [Zestril] 20 mg PO DAILY Nicotine 21Mg/24Hr Patch [Habitrol] 1 patch TRANSDERM DAILY INSULIN ASPART (NovoLOG) [NovoLOG (formulary)] See Protocol SQ ACHS Metoprolol Tartrate [Lopressor] 25 mg PO Q12H Tamsulosin [Flomax] 0.4 mg PO HS ALPRAZolam [Xanax XR] 1 mg PO BID #1 tab Discontinued Atorvastatin [Lipitor] 80 mg PO HS tab Vancomycin 1,500 mg IVPB Q16H 35 Days each Discharge Medication List Albuterol Inhaler [Ventolin Hfa Inhaler] 3 puff INHALATION RT-Q6H PRN 05/21/24 [History] Aspirin 81 mg PO DAILY tab 05/28/24 [Rx] Insulin Detemir (Levemir) [Levemir] 17 unit SQ HS each 05/28/24 [Rx] metroNIDAZOLE [Flagyl] 500 mg PO TID #35 tab 05/28/24 [Rx] 0.9 % Sodium Chloride [Sodium Chloride Flush] 10 ml IV Q16H 06/13/24 [History] INSULIN ASPART (NovoLOG) [NovoLOG (formulary)] See Protocol SQ ACHS 06/13/24 [History] Metoprolol Tartrate [Lopressor] 25 mg PO Q12H 06/13/24 [History] Nicotine 21Mg/24Hr Patch [Habitrol] 1 patch TRANSDERM DAILY 06/13/24 [History] Tamsulosin [Flomax] 0.4 mg PO HS 06/13/24 [History] lisinopriL [Zestril] 20 mg PO DAILY 06/13/24 [History] Apixaban Initiation Dose--VTE [Eliquis Initiation Dosing for VTE Treatment] 10 mg PO BID #10 tab 06/18/24 [Rx] Apixaban [Eliquis] 5 mg PO BID #60 tab 06/18/24 [Rx] Atorvastatin [Lipitor] 80 mg PO HS #30 tab 06/18/24 [Rx] DAPTOmycin [Cubicin] 650 mg IV DAILY #21 each 06/18/24 [Rx] Furosemide [Lasix] 20 mg PO DAILY #14 tab 06/18/24 [Rx] ALPRAZolam [Xanax XR] 1 mg PO BID #1 tab 06/19/24 [Rx] Dapagliflozin Propanediol [Farxiga] 10 mg PO DAILY #0 tab 06/19/24 [Rx] Spironolactone [Aldactone] 25 mg PO DAILY #7 tablet 06/19/24 [Rx] Follow up Appointment(s)/Referral(s): Simon Cantor MD [Medical Doctor] - 1 Week Padma Gomez MD [STAFF PHYSICIAN] - 1-2 days [facility], [REFERRING] - 1 Week Hailey Villegas MD [STAFF PHYSICIAN] - 1 Week Patient Instructions/Handouts: Osteomyelitis (DC) Activity/Diet/Wound Care/Special Instructions: Please follow-up with your PCP, section gang worker and infectious disease within 1 week. Patient to be discharged home daptomycin and Flagyl to complete 6 weeks course of left big toe osteomyelitis. Patient to resume home medications as directed. New medication added Lasix 20 mg p.o. daily. Patient to continue with his apixaban 10 mg twice daily for next 5 days and thereafter 5 mg twice daily indefinitely. Advised to see PCP for further management. Discharge Disposition: TRANSFER TO SNF/ECF
--- NOTE | 2024-06-20 13:53 | P.PN ---
Subjective Progress Note Date: 06/19/24 Principal diagnosis: Reason for follow-up is a COVID-19 pneumonia and left big toe amputation site osteomyelitis Patient is a 68-year-old male with a past medical history difficult for diabetes mellitus osteoarthritis neuropathy he did have a history of diabetic foot infection requiring amputation of the right first and second toe the patient second toe amputation with a recent admission to the hospital with right big toe potation site wound infection osteomyelitis with MRSA and Robina stahl debbiemonserrat was getting outpatient antibiotic presented to hospital now with mental status changes fever did shows evidence of COVID-19 infection. On today's evaluation that is 06/19/2024, Patient is afebrile this morning patient denies having any chest pain shortness of breath or cough, the patient is currently on room air, patient denies any abdominal pain no diarrhea no nausea no vomiting, feeling better no new symptoms. No new lab has been repeated today Objective - Vital Signs Vital signs: Vital Signs Temp 98.6 F 06/19/24 07:13 Pulse 83 06/19/24 07:13 Resp 17 06/19/24 07:13 BP 150/89 06/19/24 07:13 Pulse Ox 91 L 06/19/24 07:13 FiO2 50 06/15/24 08:15 Intake & Output 06/18/24 06/19/24 06/19/24 18:59 06:59 18:59 Output Total 1900 1050 Balance -1900 -1050 Weight 93.5 kg Output: Urine 1900 1050 Straight 900 Other: Voiding Method Indwelling Catheter Indwelling Catheter Indwelling Catheter # Bowel Movements 6 - Exam GENERAL DESCRIPTION: An elderly male lying in bed in no distress RESPIRATORY SYSTEM: Unlabored breathing , decreased breath sounds at bases HEART: S1 S2 regular rate and rhythm , ABDOMEN: Soft , no tenderness EXTREMITIES: Left foot wound is currently dressed no drainage on the dressing - Labs CBC & Chem 7: 06/17/24 05:18 06/18/24 07:50 Labs: Abnormal Lab Results - Last 24 Hours (Table) 06/18/24 06/18/24 06/19/24 Range/Units 16:20 21:16 06:42 POC Glucose (mg/dL) 221 H 211 H 197 H (70-110) mg/dL 06/19/24 Range/Units 11:09 POC Glucose (mg/dL) 223 H (70-110) mg/dL Microbiology - Last 24 Hours (Table) 06/13/24 21:49 Blood Culture - Final Blood Assessment and Plan (1) Fever Status: Acute Code(s): R50.9 - FEVER, UNSPECIFIED SNOMED Code(s): 103123338 (2) Osteomyelitis of left foot Status: Acute Code(s): M86.9 - OSTEOMYELITIS, UNSPECIFIED SNOMED Code(s): 8279602802678983 (3) Pneumonia due to COVID-19 virus Status: Acute Code(s): U07.1 - COVID-19; J12.82 - PNEUMONIA DUE TO CORONAVIRUS DISEASE 2018 SNOMED Code(s): 816915979586396802 Plan: 1patient presented to hospital with fever and mental status changes in this patient who was getting outpatient vancomycin pharmacy to dose for his a left big toe amputation site wound/osteomyelitis patient did have a low-grade fever however he did have normal white count overall left big toe amputation site wound is healing however the patient did have low vancomycin trough with question of possible noncompliance with his outpatient vancomycin for possible viral syndrome as a chest x-ray reported negative for acute infiltrate UA has not been significantly positive either 2-patient COVID-19 PCR came back positive CT angiogram did shows evidence of PE and groundglass opacity suggestive of COVID-19 pneumonia 4-patient did have improvement in his respiratory status, he is currently on remdesivir because of the COVID-19 pneumonia however keeping in mind the patient did have a quick recovery no need to complete the 5-day course this was d iscussed with admitting team yesterday 5patient to continue with daptomycin along with oral Flagyl to finish his 6- week course of therapy for his left big toe osteomyelitis prescription for daptomycin was provided the assistant case manager yesterday Dictation was produced using [employer] dictation software. please excuse any grammatical, word or spelling errors. Time with Patient: Less than 30
--- NOTE | 2024-06-30 23:00 | CDI ---
Documentation Clarification Form Date: 06/30/2024 10:50:43 PM From: Lili Eduardo Phone: Admit Date: 06/13/2024 08:12:00 PM Patient Name: Roberto Cage Visit Number: [id number] Discharge Date: 06/19/2024 01:35:00 PM ATTENTION: The Clinical Documentation Specialists (CDI) and [facility] Coding Staff appreciate your assistance in clarifying documentation. Please respond to the clarification below the line at the bottom and electronically sign. The CDI & [facility] Coding staff will review the response and follow-up if needed. Please note: Queries are made part of the Legal Health Record. If you have any questions, please contact the author of this message via ITS. Doctor/Provider: Araseli Aguilar Non-STEMI is documented per Consult 06/14 and 06/15- 06/17 Progress Notes. Additional clarification regarding the type of IN is requested. History/Risk Factors: 68yo M, sepsis,DMII w foot ulcerwithosteomyelitis, elevated troponin ElevatedBNP, yumiko acute PE, SKYLA, ACSHF, AHRF, COPD, dementia, COVID PNA, hypokalemia, smoker Clinical Indicators: Troponin: [id number] EKG Results: EKG Interpreted by ED MD (EKG issinus [id number] CA 150 QRS 162 QTc 457) Treatment: Continue IV heparin. Resume home cardiac medications. Continue aspirin 81 mg dailyand atorvastatin 80 mg at night. Infectious diseaseconsulted for left footwound. Awaitevaluation. ConsiderCathwhen Pt is medically stable due to elevated troponinsandcardiomyopathynoted onecholast month. Smokingcessationrecommended. Pt to be referred to IN quit line upon discharge. Further recommendations pending Pt course Please clarify the type of NSTEMI, if known: [ ] NSTEMI (type 1) [ ] Type II IN due to (please specify etiology) [ x ] Unable to determine [ ] Other Condition, please specify (Template Last Revised: October 2020) MTDD
== END 2024-06-19 13:35 | DRG 871 ==
LOC: EC 18:58 → 4SSUR 20:12 → 3SCARD 21:21 → 4SSUR 06-17 12:38
PROVIDERS: ADMIT Internal Medicine; ATTEND Internal Medicine
PROC: XW033E5 Introduction of Remdesivir Anti-infective into Peripheral Vein, Percutaneous Approach, New Technology Group 5 (ICD-10-PCS; principal; 2024-06-15)
DX: A41.9 Sepsis, unspecified organism (principal); G93.41 Metabolic encephalopathy; I26.94 Multiple subsegmental thrombotic pulmonary emboli without acute cor pulmonale; I50.23 Acute on chronic systolic (congestive) heart failure; J96.01 Acute respiratory failure with hypoxia; U07.1 COVID-19; J12.82 Pneumonia due to coronavirus disease 2019; I21.4 Non-ST elevation (NSTEMI) myocardial infarction; E87.3 Alkalosis; N17.9 Acute kidney failure, unspecified; J44.0 Chronic obstructive pulmonary disease with (acute) lower respiratory infection; M86.8X7 Other osteomyelitis, ankle and foot; F03.94 Unspecified dementia, unspecified severity, with anxiety; G90.1 Familial dysautonomia [Riley-Day]; I11.0 Hypertensive heart disease with heart failure; I25.5 Ischemic cardiomyopathy; Z79.4 Long term (current) use of insulin; E11.42 Type 2 diabetes mellitus with diabetic polyneuropathy; E11.69 Type 2 diabetes mellitus with other specified complication; Z89.412 Acquired absence of left great toe; Z89.422 Acquired absence of other left toe(s); I65.22 Occlusion and stenosis of left carotid artery; T36.8X6A Underdosing of other systemic antibiotics, initial encounter; F17.210 Nicotine dependence, cigarettes, uncomplicated; I95.1 Orthostatic hypotension; Z79.01 Long term (current) use of anticoagulants; E87.6 Hypokalemia; E78.5 Hyperlipidemia, unspecified; Z91.81 History of falling; Z79.899 Other long term (current) drug therapy; Z79.82 Long term (current) use of aspirin; Z79.84 Long term (current) use of oral hypoglycemic drugs; Z86.73 Personal history of transient ischemic attack (TIA), and cerebral infarction without residual deficits; Z86.14 Personal history of Methicillin resistant Staphylococcus aureus infection
CPT/HCPCS: 36415; 36600; 51702; 51798; 71045; 71275; 76770; 80048; 80053; 80202; 81001; 82009; 82140; 82803; 82805; 83605; 83690; 83735; 83880; 84100; 84145; 84443; 84484; 85025; 85610; 85730; 86140; 87040; 87636; 93005; 93308; 94660; 94760; 96361; 96365; 96366; 96367; 96368; 96375; 99285

== ENCOUNTER 2024-06-24 13:08 | Emergency (ER) | payer MEDICARE, OTHER ==
--- NOTE | 2024-06-24 13:30 | ED ---
CPR HPI - General Stated Complaint: Poss Aspiration Time Seen by Provider: 06/24/24 13:19 Source: patient, EMS, RN notes reviewed, old records reviewed Mode of arrival: EMS Limitations: no limitations - History of Present Illness Initial Comments: This is a 68-year-old male who presents today for evaluation of a syncopal event that syncopal resulted in the patient possibly aspirating. History is unclear surrounding the event and people do think he may be overmedicated prior. Patient was self is no current complaints, no chest pain or shortness of breath MD Complaint: unknown -: minute(s) Place: home Bystander CPR Performed: No AED Applied by Bystander/Program Eligibility Specialist: No Shock Advised: No Treatments Prior to Arrival: other (0) - Related Data Home Medications Medication Instructions Recorded Confirmed Albuterol Inhaler [Ventolin Hfa 3 puff INHALATION RT-Q6H PRN 05/21/24 06/13/24 Inhaler] 0.9 % Sodium Chloride [Sodium 10 ml IV Q16H 06/13/24 06/13/24 Chloride Flush] INSULIN ASPART (NovoLOG) [NovoLOG See Protocol SQ ACHS 06/13/24 06/13/24 (formulary)] Metoprolol Tartrate [Lopressor] 25 mg PO Q12H 06/13/24 06/13/24 Nicotine 21Mg/24Hr Patch [Habitrol] 1 patch TRANSDERM DAILY 06/13/24 06/13/24 Tamsulosin [Flomax] 0.4 mg PO HS 06/13/24 06/13/24 lisinopriL [Zestril] 20 mg PO DAILY 06/13/24 06/13/24 Previous Rx's Medication Instructions Recorded Aspirin 81 mg PO DAILY tab 05/28/24 Insulin Detemir (Levemir) [Levemir] 17 unit SQ HS each 05/28/24 metroNIDAZOLE [Flagyl] 500 mg PO TID #35 tab 05/28/24 Apixaban Initiation Dose--VTE 10 mg PO BID #10 tab 06/18/24 [Eliquis Initiation Dosing for VTE Treatment] Apixaban [Eliquis] 5 mg PO BID #60 tab 06/18/24 Atorvastatin [Lipitor] 80 mg PO HS #30 tab 06/18/24 DAPTOmycin [Cubicin] 650 mg IV DAILY #21 each 06/18/24 Furosemide [Lasix] 20 mg PO DAILY #14 tab 06/18/24 ALPRAZolam [Xanax XR] 1 mg PO BID #1 tab 06/19/24 Dapagliflozin Propanediol [Farxiga] 10 mg PO DAILY #0 tab 06/19/24 Spironolactone [Aldactone] 25 mg PO DAILY #7 tablet 06/19/24 Allergies Allergy/AdvReac Type Severity Reaction Status Date / Time No Known Allergies Allergy Verified 06/13/24 20:54 Review of Systems ROS Statement: Those systems with pertinent positive or pertinent negative responses have been documented in the HPI. ROS Other: All systems not noted in ROS Statement are negative. 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, NEEDLE ASPIRATION LEFT EYE Q 3 MONTHS, PAIN CLINIC Past Anesthesia/Blood Transfusion Reactions: No Reported Reaction Past Psychological History: Anxiety Smoking Status: Current every day smoker Past Alcohol Use History: None Reported Past Drug Use History: None Reported - Past Family History Mother Family Medical History: Cancer Additional Family Medical History / Comment(s): BREAST Sister(s) Family Medical History: Cancer General Exam Limitations: altered mental status, physical limitation General appearance: alert, in no apparent distress, lethargic Head exam: Present: atraumatic, normocephalic, normal inspection Eye exam: Present: normal appearance, PERRL, EOMI. Absent: scleral icterus, conjunctival injection, periorbital swelling ENT exam: Present: normal exam, mucous membranes moist Neck exam: Present: normal inspection. Absent: tenderness, meningismus, lymph adenopathy Respiratory exam: Present: normal lung sounds bilaterally. Absent: respiratory distress, wheezes, rales, rhonchi, stridor Cardiovascular Exam: Present: regular rate, normal rhythm, normal heart sounds. Absent: systolic murmur, diastolic murmur, rubs, gallop, clicks GI/Abdominal exam: Present: soft, normal bowel sounds. Absent: distended, tenderness, guarding, rebound, rigid Extremities exam: Present: normal inspection, full ROM, normal capillary refill. Absent: tenderness, pedal edema, joint swelling, calf tenderness Back exam: Present: normal inspection Neurological exam: Present: alert, oriented X3, CN II-XII intact Psychiatric exam: Present: normal affect, normal mood Skin exam: Present: warm, dry, intact, normal color. Absent: rash Course Vital Signs 06/24/24 06/24/24 06/24/24 13:11 13:38 14:20 Temperature Pulse Rate 71 72 74 Respiratory 17 20 18 Rate Blood Pressure 113/60 128/70 119/73 O2 Sat by Pulse 91 L 93 L 98 Oximetry 06/24/24 06/24/24 06/24/24 14:50 16:02 18:02 Temperature Pulse Rate 73 75 84 Respiratory 20 24 20 Rate Blood Pressure 109/61 123/58 117/69 O2 Sat by Pulse 94 L 99 98 Oximetry 06/24/24 19:16 Temperature 98.9 F Pulse Rate 84 Respiratory 20 Rate Blood Pressure 141/80 O2 Sat by Pulse 96 Oximetry - Reevaluation(s) Reevaluation #1: 06/24/24 13:29 Medical records reviewed Reevaluation #2: 06/24/24 18:12 Patient continues to remain awake and alert with normal vital signs here in the ER Reevaluation #3: 06/24/24 18:12 Family informed at bedside of results, they are comfortable with patient discharge back to facility Reevaluation #4: Was pt. sent in by a medical professional or institution (, PA, [employer], urgent care, hospital, or long-term...) When possible be specific @ -no Did you speak to anyone other than the patient for history (EMS, parent, family, police, friend...)? What history was obtained from this source @ -no Did you review nursing and triage notes (agree or disagree)? Why? @ -agree Are old charts reviewed (outside hosp., previous admission, EMS record, old EKG, old radiological studies, urgent care reports/EKG's, long-term records)? Report findings @ -yes Differential Diagnosis (chest pain, altered mental status, abdominal pain women, abdominal pain men, vaginal bleeding, weakness, fever, dyspnea, syncope, headache, dizziness, GI bleed, back pain, seizure, CVA, palpatations, mental health, musculoskeletal)? @ -prior EKG interpreted by me (3pts min.). @ -yes X-rays interpreted by me (1pt min.). @ -yes negative for acute disease CT interpreted by me (1pt min.). @ -no U/S interpreted by me (1pt. min.). @ -no What testing was considered but not performed or refused? (CT, X-rays, U/S, labs)? Why? @ -none What meds were considered but not given or refused? Why? @ -none Did you discuss the management of the patient with other professionals (pro fessionals i.e. , PA, [employer], lab, RT, psych nurse, high school social studies tutor, infrastructure security architect, teacher, tactical response group officer, casework specialist)? Give summary @ -no Was smoking cessation discussed for >3mins.? @ -no Was critical care preformed (if so, how long)? @ -no Were there social determinants of health that impacted care today? How? (Homelessness, low income, unemployed, alcoholism, drug addiction, transportation, low edu. Level, literacy, decrease access to med. care, prison, rehab)? @ -none Was there de-escalation of care discussed even if they declined (Discuss DNR or withdrawal of care, Hospice)? DNR status @ -no What co-morbidities impacted this encounter? (DM, HTN, Smoking, COPD, CAD, Cancer, CVA, ARF, Chemo, Hep., AIDS, mental health diagnosis, sleep apnea, morbid obesity)? @ -none Was patient admitted / discharged? Hospital course, mention meds given and route, prescriptions, significant lab abnormalities, going to OR and other pertinent info. @ - 68 male who comes in with his likely suspected unresponsive episode. Patient was placed on Ativan longer dose today could be medication reaction although symptoms are resolved here in the ER patient will be transferred back to facility Discharged Undiagnosed new problem with uncertain prognosis? @ -no Drug Therapy requiring intensive monitoring for toxicity (Heparin, Nitro, Insulin, Cardizem)? @ -no Were any procedures done? @ -no Diagnosis/symptom? @ -Syncope with aspiration possible unfounded, likely medication reaction Acute, or Chronic, or Acute on Chronic? @ -Acute Uncomplicated (without systemic symptoms) or Complicated (systemic symptoms)? @ -Complicated Side effects of treatment? @ -no Exacerbation, Progression, or Severe Exacerbation? @ -exacerbation Poses a threat to life or bodily function? How? (Chest pain, USA, DC, pneumonia, PE, COPD, DKA, ARF, appy, cholecystitis, CVA, Diverticulitis, Homicidal, Suicidal, threat to staff... and all critical care pts) @ -yes possible syncopal event and aspiration 06/30/24 17:11 Reevaluation #5: Differential Altered Mental Status: Hypoglycemia, DKA, hypercapnia, ETOH, overdose, CO poisoning, trauma, myxedema coma, HTN encephalopathy, infection, encephalitis, psychosis, intercranial hemorrhage, hepatic encephalopathy, meningitis, CVA, this is not meant to be an all-inclusive list Medical Decision Making - Medical Decision Making 68 male who comes in with his likely suspected unresponsive episode. Patient was placed on Ativan longer dose today could be medication reaction although symptoms are resolved here in the ER patient will be transferred back to facility - Lab Data Result diagrams: 06/24/24 15:11 06/24/24 15:11 Lab Results 06/24/24 06/24/24 06/24/24 Range/Units 15:11 15:11 15:11 WBC 12.7 H (3.8-10.6) k/uL RBC 4.89 (4.30-5.90) m/uL Hgb 14.7 (13.0-17.5) gm/dL Hct 43.3 (39.0-53.0) % MCV 88.6 (80.0-100.0) fL MCH 30.0 (25.0-35.0) pg MCHC 33.9 (31.0-37.0) g/dL RDW 13.8 (11.5-15.5) % Plt Count 284 (150-450) k/uL MPV 8.4 Neutrophils % 83 % Lymphocytes % 7 % Monocytes % 9 % Eosinophils % 0 % Basophils % 0 % Neutrophils # 10.5 H (1.3-7.7) k/uL Lymphocytes # 0.8 L (1.0-4.8) k/uL Monocytes # 1.2 H (0-1.0) k/uL Eosinophils # 0.0 (0-0.7) k/uL Basophils # 0.0 (0-0.2) k/uL PT 14.4 H (10.0-12.5) sec INR 1.4 H (<1.2) APTT 38.1 H (22.0-30.0) sec Sodium 140 (137-145) mmol/L Potassium 3.1 L (3.5-5.1) mmol/L Chloride 103 (98-107) mmol/L Carbon Dioxide 30 (22-30) mmol/L Anion Gap 7 mmol/L BUN 24 H (9-20) mg/dL Creatinine 1.18 (0.66-1.25) mg/dL Est GFR (CKD-EPI)AfAm 73 (>60 ml/min/1.73 sqM) Est GFR (CKD-EPI)NonAf 63 (>60 ml/min/1.73 sqM) Glucose 199 H (74-99) mg/dL Plasma Lactic Acid Hossein (0.7-2.0) mmol/L Calcium 8.2 L (8.4-10.2) mg/dL Phosphorus 4.0 (2.5-4.5) mg/dL Magnesium 1.9 (1.6-2.3) mg/dL Total Bilirubin 0.7 (0.2-1.3) mg/dL AST 31 (17-59) U/L ALT 14 (4-49) U/L Alkaline Phosphatase 131 H (38-126) U/L Ammonia (<30) umol/L Troponin I (0.000-0.034) ng/mL NT-Pro-B Natriuret Pep 3100 pg/mL Total Protein 5.9 L (6.3-8.2) g/dL Albumin 3.0 L (3.5-5.0) g/dL Lipase 54 (23-300) U/L 06/24/24 06/24/24 Range/Units 15:11 15:11 WBC (3.8-10.6) k/uL RBC (4.30-5.90) m/uL Hgb (13.0-17.5) gm/dL Hct (39.0-53.0) % MCV (80.0-100.0) fL MCH (25.0-35.0) pg MCHC (31.0-37.0) g/dL RDW (11.5-15.5) % Plt Count (150-450) k/uL MPV Neutrophils % % Lymphocytes % % Monocytes % % Eosinophils % % Basophils % % Neutrophils # (1.3-7.7) k/uL Lymphocytes # (1.0-4.8) k/uL Monocytes # (0-1.0) k/uL Eosinophils # (0-0.7) k/uL Basophils # (0-0.2) k/uL PT (10.0-12.5) sec INR (<1.2) APTT (22.0-30.0) sec Sodium (137-145) mmol/L Potassium (3.5-5.1) mmol/L Chloride (98-107) mmol/L Carbon Dioxide (22-30) mmol/L Anion Gap mmol/L BUN (9-20) mg/dL Creatinine (0.66-1.25) mg/dL Est GFR (CKD-EPI)AfAm (>60 ml/min/1.73 sqM) Est GFR (CKD-EPI)NonAf (>60 ml/min/1.73 sqM) Glucose (74-99) mg/dL Plasma Lactic Acid Hossein 1.0 (0.7-2.0) mmol/L Calcium (8.4-10.2) mg/dL Phosphorus (2.5-4.5) mg/dL Magnesium (1.6-2.3) mg/dL Total Bilirubin (0.2-1.3) mg/dL AST (17-59) U/L ALT (4-49) U/L Alkaline Phosphatase (38-126) U/L Ammonia <9 (<30) umol/L Troponin I 0.153 H* (0.000-0.034) ng/mL NT-Pro-B Natriuret Pep pg/mL Total Protein (6.3-8.2) g/dL Albumin (3.5-5.0) g/dL Lipase (23-300) U/L - EKG Data -: EKG Interpreted by Me (EKG is uncertain of 72 QRS 184 QTc 510) - Radiology Data Radiology results: report reviewed (Chest x-ray is negative for acute disease), image reviewed Disposition Clinical Impression: Altered mental state Disposition: HOME SELF-CARE Condition: Fair Instructions (If sedation given, give patient instructions): Altered Mental Status (ED) Is patient prescribed a controlled substance at d/c from ED?: No Referrals: Roberto Stanley DO [Primary Care Provider] - 1-2 days Time of Disposition: 18:10
--- NOTE | 2024-06-24 14:47 | XR ---
EXAMINATION TYPE: XR chest 2V DATE OF EXAM: 06/24/2024 COMPARISON: 06/15/2024 HISTORY: Cough TECHNIQUE: Frontal and lateral views of the chest are obtained. FINDINGS: On the lateral view there is an infiltrate in one of the posterior lower lobes. There is no pleural effusion or pneumothorax. The heart and pulmonary vasculature are normal. The oss eous structures are intact. IMPRESSION: Infiltrate in one of the posterior lung bases as described above. Findings are suspicious for pneumon ia. [facility], , 06/24/2024 2:45 PM
[2024-06-24 15:28] LABS: INR 1.4 (<1.2); Partial Thromboplastin Time 38.1 sec (22.0-30.0); Prothrombin Time 14.4 sec (10.0-12.5)
[2024-06-24 15:33] LABS: Basophils % (A) 0 %; Eosinophils % (A) 0 %; HCT 43.3 % (39.0-53.0); HGB 14.7 gm/dL (13.0-17.5); Lymphocytes # (A) 0.8 k/uL (1.0-4.8); Lymphocytes % (A) 7 %; MCHC 33.9 g/dL (31.0-37.0); MCV 88.6 fL (80.0-100.0); Mean Platelet Volume 8.4; Monocytes # (A) 1.2 k/uL (0-1.0); Monocytes % (A) 9 %; Neutrophils # (A) 10.5 k/uL (1.3-7.7); Neutrophils % (A) 83 %; Platelet Count 284 k/uL (150-450); RBC 4.89 m/uL (4.30-5.90); RDW 13.8 % (11.5-15.5); WBC 12.7 k/uL (3.8-10.6)
[2024-06-24 15:47] LABS: ALT 14 U/L (4-49); AST 31 U/L (17-59); African American GFR (CKD) 73 (>60 ml/min/1.73 sqM); Alkaline Phosphatase 131 U/L (38-126); Anion Gap 7 mmol/L; Blood Urea Nitrogen 24 mg/dL (9-20); Calcium 8.2 mg/dL (8.4-10.2); Carbon Dioxide 30 mmol/L (22-30); Chloride 103 mmol/L (98-107); Glucose 199 mg/dL (74-99); Lipase 54 U/L (23-300); Magnesium 1.9 mg/dL (1.6-2.3); Non-African American GFR(CKD) 63 (>60 ml/min/1.73 sqM); Potassium 3.1 mmol/L (3.5-5.1); Sodium 140 mmol/L (137-145); Total Bilirubin 0.7 mg/dL (0.2-1.3); Total Protein 5.9 g/dL (6.3-8.2)
[2024-06-24 15:53] LABS: NT-Pro-B-Type Natriuretic Pept 3100 pg/mL
[2024-06-24] MEDS: SODIUM CHLORIDE 0.9% 1,000 ML IV STA (16:04)
[2024-06-24 18:08] VITALS: PULSE 84; RESP 20
[2024-06-24 19:19] VITALS: BP 141/80; TEMP 98.9
== END 2024-06-24 20:06 | disposition home or self-care (01) ==
LOC: EC 13:08
DX: R41.82 Altered mental status, unspecified (principal); F17.200 Nicotine dependence, unspecified, uncomplicated; Z90.89 Acquired absence of other organs
CPT/HCPCS: 36415; 71046; 80053; 82140; 83605; 83690; 83735; 83880; 84100; 84484; 85025; 85610; 85730; 93005; 96360; 96361; 99285

== ENCOUNTER 2024-09-10 06:09 | Inpatient (IN) | payer OTHER ==
[2024-09-10] MEDS ORDERED: VANCOMYCIN IV PER PHARMACY 1 EACH MISC MISCELLANE PRN (06:20)
--- NOTE | 2024-09-10 06:22 | ED ---
Lower Extremity Injury HPI - General Chief Complaint: Extremity Injury, Lower Stated Complaint: infection in foot Time Seen by Provider: 09/10/24 06:13 Source: patient, EMS, RN notes reviewed Mode of arrival: EMS Limitations: physical limitation - History of Present Illness Initial Comments: 68-year-old male presents emergency department chief complaint of right foot infection. He has had a prior amputation of the left foot approximately [address] Grady. Patient states that he is having worsening drainage, discoloration and redness of his first and second digit open to his foot. He is a known diabetic he is unsure what his blood sugars today it has been recently elevated. Patient states he does have some discomfort. Patient denies any reports of fever he states he is not exactly sure how long it has been going he states that his son has been watching it. - Related Data Home Medications Medication Instructions Recorded Confirmed Albuterol Inhaler [Ventolin Hfa 3 puff INHALATION RT-Q6H PRN 05/21/24 06/13/24 Inhaler] 0.9 % Sodium Chloride [Sodium 10 ml IV Q16H 06/13/24 06/13/24 Chloride Flush] INSULIN ASPART (NovoLOG) [NovoLOG See Protocol SQ ACHS 06/13/24 06/13/24 (formulary)] Metoprolol Tartrate [Lopressor] 25 mg PO Q12H 06/13/24 06/13/24 Nicotine 21Mg/24Hr Patch [Habitrol] 1 patch TRANSDERM DAILY 06/13/24 06/13/24 Tamsulosin [Flomax] 0.4 mg PO HS 06/13/24 06/13/24 lisinopriL [Zestril] 20 mg PO DAILY 06/13/24 06/13/24 Previous Rx's Medication Instructions Recorded Aspirin 81 mg PO DAILY tab 05/28/24 Insulin Detemir (Levemir) [Levemir] 17 unit SQ HS each 05/28/24 metroNIDAZOLE [Flagyl] 500 mg PO TID #35 tab 05/28/24 Apixaban Initiation Dose--VTE 10 mg PO BID #10 tab 06/18/24 [Eliquis Initiation Dosing for VTE Treatment] Apixaban [Eliquis] 5 mg PO BID #60 tab 06/18/24 Atorvastatin [Lipitor] 80 mg PO HS #30 tab 06/18/24 DAPTOmycin [Cubicin] 650 mg IV DAILY #21 each 06/18/24 Furosemide [Lasix] 20 mg PO DAILY #14 tab 06/18/24 ALPRAZolam [Xanax XR] 1 mg PO BID #1 tab 06/19/24 Dapagliflozin Propanediol [Farxiga] 10 mg PO DAILY #0 tab 06/19/24 Spironolactone [Aldactone] 25 mg PO DAILY #7 tablet 06/19/24 Allergies Allergy/AdvReac Type Severity Reaction Status Date / Time No Known Allergies Allergy Verified 09/10/24 06:14 Review of Systems ROS Statement: Those systems with pertinent positive or pertinent negative responses have been documented in the HPI. ROS Other: All systems not noted in ROS Statement are negative. 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, NEEDLE ASPIRATION LEFT EYE Q 3 MONTHS, PAIN CLINIC Past Anesthesia/Blood Transfusion Reactions: No Reported Reaction Past Psychological History: Anxiety Smoking Status: Current every day smoker Past Alcohol Use History: None Reported Past Drug Use History: None Reported - Past Family History Mother Family Medical History: Cancer Additional Family Medical History / Comment(s): BREAST Sister(s) Family Medical History: Cancer General Exam Limitations: physical limitation General appearance: alert, in no apparent distress Head exam: Present: atraumatic, normocephalic, normal inspection Neck exam: Present: normal inspection, full ROM. Absent: tenderness, meningismus, lymphadenopathy Respiratory exam: Present: normal lung sounds bilaterally. Absent: respiratory distress, wheezes, rales, rhonchi, stridor Cardiovascular Exam: Present: regular rate, normal rhythm, normal heart sounds. Absent: systolic murmur, diastolic murmur, rubs, gallop, clicks Extremities exam: Present: other (Left foot prior toe amputation there is a healing wound noted, right foot ulceration on dorsal aspect of the first digit surrounding gangrene, erythema spreading into the proximal foot) Course Vital Signs 09/10/24 06:11 Temperature 98.1 F Pulse Rate 102 H Respiratory 20 Rate Blood Pressure 117/69 O2 Sat by Pulse 95 Oximetry Medical Decision Making - Medical Decision Making Was pt. sent in by a medical professional or institution (SELMA Corona, BLUR[employer] WRITER, urgent care, hospital, or alf...) When possible be specific @ -No Did you speak to anyone other than the patient for history (EMS, parent, family, police, friend...)? What history was obtained from this source @ -No Did you review nursing and triage notes (agree or disagree)? Why? @ -I reviewed and agree with nursing and triage notes Were old charts reviewed (outside hosp., previous admission, EMS record, old EKG, old radiological studies, urgent care reports/EKG's, alf records)? Report findings @ -No old charts were reviewed Differential Diagnosis (chest pain, altered mental status, abdominal pain women, abdominal pain men, vaginal bleeding, weakness, fever, dyspnea, syncope, headache, dizziness, GI bleed, back pain, seizure, CVA, palpatations, mental health, musculoskeletal)? @ -Diabetic foot infection, osteomyelitis, cellulitis EKG interpreted by me (3pts min.). @ -None X-rays interpreted by me (1pt min.). @ -X-ray shows changes within the first and second digit, possible osteo CT interpreted by me (1pt min.). @ -None done U/S interpreted by me (1pt. min.). @ -None done What testing was considered but not performed or refused? (CT, X-rays, U/S, labs)? Why? @ -None What meds were considered but not given or refused? Why? @ -None Did you discuss the management of the patient with other professionals (professionals i.e. SELMA Corona, BLURB WRITER, lab, RT, psych nurse, social service assistant, high school math teacher, teacher, airplane first officer, case specialist)? Give summary @ -[EMH for admission Was smoking cessation discussed for >3mins.? @ -No Was critical care preformed (if so, how long)? @ -No Were there social determinants of health that impacted care today? How? (Homelessness, low income, unemployed, alcoholism, drug addiction, transportation, low edu. Level, literacy, decrease access to med. care, nursing home, rehab)? @ -No Was there de-escalation of care discussed even if they declined (Discuss DNR or withdrawal of care, Hospice)? DNR status @ -No What co-morbidities impacted this encounter? (DM, HTN, Smoking, COPD, CAD, Cancer, CVA, ARF, Chemo, Hep., AIDS, mental health diagnosis, sleep apnea, morbid obesity)? @ -Diabetes Was patient admitted / discharged? Hospital course, mention meds given and route, prescriptions, significant lab abnormalities, going to OR and other pertinent info. @ -With noted patient's found to have diabetic ulceration and probable early osteomyelitis. Patient started on Zosyn, vancomycin. Patient will be admitted with consult to Dr. Grady who she seen in the past. Undiagnosed new problem with uncertain prognosis? @ -No Drug Therapy requiring intensive monitoring for toxicity (Heparin, Nitro, Insulin, Cardizem)? @ -No Were any procedures done? @ -No Diagnosis/symptom? @ -[Diabetic ulceration, gangrene Acute, or Chronic, or Acute on Chronic? @ -Acute Uncomplicated (without systemic symptoms) or Complicated (systemic symptoms)? @ -Complicated Side effects of treatment? @ -No Exacerbation, Progression, or Severe Exacerbation? @ -No Poses a thre yes possible sepsis, endorgan failure no - Lab Data Result diagrams: 09/10/24 06:30 09/10/24 06:30 Lab Results 09/10/24 09/10/24 Range/Units 06:30 06:30 WBC 15.4 H (3.8-10.6) k/uL RBC 3.85 L (4.30-5.90) m/uL Hgb 11.7 L (13.0-17.5) gm/dL Hct 36.0 L (39.0-53.0) % MCV 93.3 (80.0-100.0) fL MCH 30.3 (25.0-35.0) pg MCHC 32.5 (31.0-37.0) g/dL RDW 14.9 (11.5-15.5) % Plt Count 219 (150-450) k/uL MPV 9.0 Neutrophils % 90 % Lymphocytes % 5 % Monocytes % 4 % Eosinophils % 0 % Basophils % 0 % Neutrophils # 13.8 H (1.3-7.7) k/uL Lymphocytes # 0.8 L (1.0-4.8) k/uL Monocytes # 0.6 (0-1.0) k/uL Eosinophils # 0.1 (0-0.7) k/uL Basophils # 0.0 (0-0.2) k/uL Sodium 136 L (137-145) mmol/L Potassium 4.4 (3.5-5.1) mmol/L Chloride 103 (98-107) mmol/L Carbon Dioxide 22 (22-30) mmol/L Anion Gap 11 mmol/L BUN 23 H (9-20) mg/dL Creatinine 0.97 (0.66-1.25) mg/dL Est GFR (CKD-EPI)AfAm >90 (>60 ml/min/1.73 sqM) Est GFR (CKD-EPI)NonAf 81 (>60 ml/min/1.73 sqM) Glucose 196 H (74-99) mg/dL Calcium 9.0 (8.4-10.2) mg/dL Total Bilirubin 1.2 (0.2-1.3) mg/dL AST 23 (17-59) U/L ALT 19 (4-49) U/L Alkaline Phosphatase 221 H (38-126) U/L C-Reactive Protein 8.2 H (<1.0) mg/dL Total Protein 6.3 (6.3-8.2) g/dL Albumin 3.5 (3.5-5.0) g/dL Disposition Clinical Impression: Diabetic foot ulcer, Diabetic foot infection, Osteomyelitis Disposition: ADMITTED IP TO THIS HOSP Condition: Fair Referrals: None,Stated [REFERRING] - 1-2 days Time of Disposition: 07:47
[2024-09-10] MEDS: VANCOMYCIN 1,750 MG in SODIUM CHLORIDE 0.9% 500 ML 500 ML IVPB STA (06:57)
--- NOTE | 2024-09-10 06:57 | XR ---
EXAMINATION TYPE: XR foot complete RT DATE OF EXAM: 09/10/2024 CLINICAL HISTORY: Infection with pain TECHNIQUE: Frontal, lateral, and oblique images of the right foot are obtained. COMPARISON: Bilateral feet x-rays May 21, 2024 FINDINGS: There is no acute fracture/dislocation evident in the right foot. Moderate to large sized inferior calcaneal spur is redemonstrated. Mild to moderate midfoot spurring seen best on lateral vie w is again seen. No suspicious new bony destruction. There is new moderate to severe diffuse soft tis lashanda swelling seen best on lateral view more prominent versus prior.. There is persistent linear 6 mm soft tissue foreign body along the plantar surface at level of the second proximal phalanx. IMPRESSION: As above. [facility], , 09/10/2024 6:55 AM
[2024-09-10 07:25] LABS: Basophils % (A) 0 %; Eosinophils # (A) 0.1 k/uL (0-0.7); Eosinophils % (A) 0 %; HGB 11.7 gm/dL (13.0-17.5); Lymphocytes # (A) 0.8 k/uL (1.0-4.8); Lymphocytes % (A) 5 %; MCH 30.3 pg (25.0-35.0); MCHC 32.5 g/dL (31.0-37.0); MCV 93.3 fL (80.0-100.0); Monocytes # (A) 0.6 k/uL (0-1.0); Monocytes % (A) 4 %; Neutrophils # (A) 13.8 k/uL (1.3-7.7); Neutrophils % (A) 90 %; Platelet Count 219 k/uL (150-450); RBC 3.85 m/uL (4.30-5.90); RDW 14.9 % (11.5-15.5); WBC 15.4 k/uL (3.8-10.6)
[2024-09-10 07:35] LABS: Potassium 4.4 mmol/L (3.5-5.1)
[2024-09-10 07:38] LABS: ALT 19 U/L (4-49); AST 23 U/L (17-59); African American GFR (CKD) >90 (>60 ml/min/1.73 sqM); Albumin 3.5 g/dL (3.5-5.0); Alkaline Phosphatase 221 U/L (38-126); Anion Gap 11 mmol/L; Blood Urea Nitrogen 23 mg/dL (9-20); C Reactive Protein 8.2 mg/dL (<1.0); Carbon Dioxide 22 mmol/L (22-30); Chloride 103 mmol/L (98-107); Glucose 196 mg/dL (74-99); Non-African American GFR(CKD) 81 (>60 ml/min/1.73 sqM); Sodium 136 mmol/L (137-145); Total Bilirubin 1.2 mg/dL (0.2-1.3); Total Protein 6.3 g/dL (6.3-8.2)
[2024-09-10] MEDS ORDERED: ONDANSETRON 4 MG/2 ML VIAL IVP PRN (07:47)
[2024-09-10] MEDS ORDERED: ACETAMINOPHEN TAB 325 MG TAB PO PRN (07:47)
[2024-09-10] MEDS ORDERED: NALOXONE 0.4 MG/ML 1 ML VIAL IV PRN (07:47)
[2024-09-10] MEDS: PIPERACILLIN-TAZOBACTAM 3.375 GM in SODIUM CHLORIDE 0.9% 100 ML IVPB SCH (09:08)
--- NOTE | 2024-09-10 14:24 | P.HPIM ---
History of Present Illness H&P Date: 09/10/24 Chief Complaint: right toe pain 68-year-old male with a medical history of uncontrolled diabetes with diabetic neuropathy, BPH presented for evaluation of right toe infection. Patient reports that his right foot has been getting increasingly painful, swollen, red, tender. He reports associated chills but denies fevers. He has previously had toe amputations on his left side for similar issues. He denies diaphoresis, sweats, nausea, vomiting, chest pain, palpitations, syncope, presyncope. In the emergency room, patient was afebrile, 117/69, heart rate 102, 95% on room air. CBC demonstrates leukocytosis to 15.4, anemia of 11.7. Basic metabolic panel is unremarkable. CRP is elevated at 8.2. Liver function tests are unremarkable. Foot x-ray shows moderate to severe diffuse soft tissue swelling best seen on lateral view, persistent linear 6 mm soft tissue foreign body along the plantar surface at the level of the second proximal phalanx. Patient was admitted for diabetic foot infection to the medical service with vascular surgery consultation infectious disease consultation. All Systems reviewed and pertinent positives and negatives noted in HPI, all other symptoms are negative Gen: In NAD, non-toxic HEENT: normocephalic, atraumatic, hearing acuity is intant, mucous membranes moist CVS: perfusing all extremities well, no pitting edema, Respiratory: symmetric chest expansion, no accessory muscle use, GI: soft, NTTP, ND, : no suprapubic tenderness, no CVA tenderness MSK/Derm: no rashes, cyanosis, right great toe is dark dusky and has ulceration, overlying gangrenous Neuro: CN II-XII intact, no motor weakness, Psych: cooperative, euthymic mood, judgment and insight is intact Labs and imaging as above Assessment/plan: Sepsis secondary to cellulitis versus osteomyelitis of the right great toe Diabetic foot infection -Admit patient to inpatient, telemetry -Agree with vancomycin, Zosyn -Infectious disease consultation -Vascular surgery consultation -Blood culture pending Diabetes type 2 with diabetic neuropathy -Resume home insulin -Low-dose sliding scale insulin -Pregabalin BPH -Resume tamsulosin Patient is full code DVT prophylaxis with heparin 3 times daily 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, NEEDLE ASPIRATION LEFT EYE Q 3 MONTHS, PAIN CLINIC Past Anesthesia/Blood Transfusion Reactions: No Reported Reaction Past Psychological History: Anxiety Smoking Status: Current every day smoker Past Alcohol Use History: None Reported Past Drug Use History: None Reported - Past Family History Mother Family Medical History: Cancer Additional Family Medical History / Comment(s): BREAST Sister(s) Family Medical History: Cancer Medications and Allergies Home Medications Medication Instructions Recorded Confirmed Type Albuterol Inhaler [Ventolin Hfa 3 puff INHALATION RT-QID PRN 05/21/24 09/10/24 H istory Inhaler] Tamsulosin [Flomax] 0.4 mg PO HS 06/13/24 09/10/24 History Furosemide [Lasix] 20 mg PO DAILY #14 tab 06/18/24 09/10/24 Rx Spironolactone [Aldactone] 25 mg PO DAILY #7 tablet 06/19/24 09/10/24 Rx Acetaminophen 500 - 1,000 mg PO Q8H PRN 09/10/24 09/10/24 History Haloperidol Oral Soln [Haldol Oral 2 - 4 mg PO Q4H PRN 09/10/24 09/10/24 History Soln] Insulin Glargine [Lantus Vial] 20 unit SQ HS 09/10/24 09/10/24 History LORazepam [Ativan] 0.5 - 1 mg PO Q12H PRN 09/10/24 09/10/24 History Nystatin 100,000 Unit/gm Powd 1 applic TOPICAL TID 09/10/24 09/10/24 History [Mycostatin Powder] Prochlorperazine Suppository 25 mg RECTAL Q8H PRN 09/10/24 09/10/24 History [Compazine] Sennosides/Docusate Sodium [Senna 1 tab PO BID PRN 09/10/24 09/10/24 History Plus 8.6-50 mg Tablet] Allergies Allergy/AdvReac Type Severity Reaction Status Date / Time No Known Allergies Allergy Verified 09/10/24 11:29 Physical Exam Osteopathic Statement: *. No significant issues noted on an osteopathic structural exam other than those noted in the History and Physical/Consult. Vitals: Vital Signs Temp Pulse Pulse Resp BP BP Pulse Ox 09/10/24 13:29 98.1 F 111 H 24 135/72 96 09/10/24 11:24 98 F 78 18 144/78 97 09/10/24 09:13 92 16 110/66 95 09/10/24 06:11 98.1 F 102 H 20 117/69 95 Intake and Output 09/09/24 09/10/24 09/10/24 22:59 06:59 14:59 Other: Weight 108.862 kg Results CBC & Chem 7: 09/10/24 06:30 09/10/24 06:30 Labs: Abnormal Lab Results - Last 24 Hours (Table) 09/10/24 09/10/24 Range/Units 06:30 06:30 WBC 15.4 H (3.8-10.6) k/uL RBC 3.85 L (4.30-5.90) m/uL Hgb 11.7 L (13.0-17.5) gm/dL Hct 36.0 L (39.0-53.0) % Neutrophils # 13.8 H (1.3-7.7) k/uL Lymphocytes # 0.8 L (1.0-4.8) k/uL Sodium 136 L (137-145) mmol/L BUN 23 H (9-20) mg/dL Glucose 196 H (74-99) mg/dL Alkaline Phosphatase 221 H (38-126) U/L C-Reactive Protein 8.2 H (<1.0) mg/dL
[2024-09-10] MEDS: HEPARIN SODIUM,PORCINE 5,000 UNIT/ML 1 ML VIAL SQ SCH (17:20)
[2024-09-10] MEDS: AMPICILLIN-SULBACTAM 3 GM in SODIUM CHLORIDE 0.9% 100 ML IVPB SCH (17:20)
[2024-09-10 18:02] LABS: Glucose,Whole Blood 196 mg/dL (70-110)
[2024-09-10] MEDS ORDERED: DEXTROSE 50% SYRINGE 50 ML IVP PRN ×2 (18:12)
[2024-09-10] MEDS: VANCOMYCIN 1,500 MG in SODIUM CHLORIDE 0.9% 500 ML 500 ML IVPB SCH (18:50)
[2024-09-10] MEDS: TAMSULOSIN 0.4 MG CAP.ER.24H PO SCH (20:24)
[2024-09-10 20:32] LABS: Glucose,Whole Blood 205 mg/dL (70-110)
[2024-09-10] MEDS: INSULIN DETEMIR (LEVEMIR) 100 UNIT/ML SYR SQ SCH (20:37)
[2024-09-10] MEDS: INSULIN ASPART (NovoLOG) 100 UNIT/ML VIAL SQ SCH (20:38)
[2024-09-11 05:44] LABS: Glucose,Whole Blood 90 mg/dL (70-110)
--- NOTE | 2024-09-11 05:47 | P.CONS ---
History of Present Illness - Reason for Consult Consult date: 09/10/24 Diabetic foot infection Requesting physician: Enrike Colvin - Chief Complaint Discoloration to the right first and second toe x weeks - History of Present Illness Patient is a 68-year-old male with a past medical history significant for diabetes mellitus osteoarthritis neuropathy patient did have a left big toe diabetic foot infection requiring left big toe amputation subsequently admitted to the hospital in May 2024 for osteomyelitis of the left foot at the site of the left big toe amputation and has been treated with a course of daptomycin and Flagyl we will culture positive for MRSA patient now presenting to the hospital for evaluation of right foot infection especially to the right first and second toe with evidence of discoloration redness and did have some drainage patient did have some dull aching pain mild to moderate intensity without radiation patient not really clear for how long he started having a problem with the right first and second toe however the patient seem to have been ignoring his condition and came to the hospital because of consistent by his son on presentation to the hospital patient was afebrile and no fever has been called subsequently patient was mildly tachycardic but not hypotensive or hypoxic he did have white count of 15.4 creatinine 0.97 liver enzymes are normal CRP was elevated patient was started on vancomycin and Zosyn infectious disease was consulted for further management of antibiotic therapy Review of Systems Positive point and negatives has been mentioned in the HPI, complete review of systems was performed and all other systems are negative 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, NEEDLE ASPIRATION LEFT EYE Q 3 MONTHS, PAIN CLINIC Past Anesthesia/Blood Transfusion Reactions: No Reported Reaction Past Psychological History: Anxiety Smoking Status: Current every day smoker Past Alcohol Use History: None Reported Past Drug Use History: None Reported - Past Family History Mother Family Medical History: Cancer Additional Family Medical History / Comment(s): BREAST Sister(s) Family Medical History: Cancer Medications and Allergies Home Medications Medication Instructions Recorded Confirmed Type Albuterol Inhaler [Ventolin Hfa 3 puff INHALATION RT-QID PRN 05/21/24 09/10/24 History Inhaler] Tamsulosin [Flomax] 0.4 mg PO HS 06/13/24 09/10/24 History Furosemide [Lasix] 20 mg PO DAILY #14 tab 06/18/24 09/10/24 Rx Spironolactone [Aldactone] 25 mg PO DAILY #7 tablet 06/19/24 09/10/24 Rx Acetaminophen 500 - 1,000 mg PO Q8H PRN 09/10/24 09/10/24 History Haloperidol Oral Soln [Haldol Oral 2 - 4 mg PO Q4H PRN 09/10/24 09/10/24 History Soln] Insulin Glargine [Lantus Vial] 20 unit SQ HS 09/10/24 09/10/24 History LORazepam [Ativan] 0.5 - 1 mg PO Q12H PRN 09/10/24 09/10/24 History Nystatin 100,000 Unit/gm Powd 1 applic TOPICAL TID 09/10/24 09/10/24 History [Mycostatin Powder] Prochlorperazine Suppository 25 mg RECTAL Q8H PRN 09/10/24 09/10/24 History [Compazine] Sennosides/Docusate Sodium [Senna 1 tab PO BID PRN 09/10/24 09/10/24 History Plus 8.6-50 mg Tablet] Allergies Allergy/AdvReac Type Severity Reaction Status Date / Time No Known Allergies Allergy Verified 09/10/24 11:29 Physical Exam Vitals: Vital Signs Temp Pulse Resp BP Pulse Ox 09/10/24 11:24 98 F 78 18 144/78 97 09/10/24 09:13 92 16 110/66 95 09/10/24 06:11 98.1 F 102 H 20 117/69 95 Intake and Output 09/09/24 09/10/24 09/10/24 22:59 06:59 14:59 Other: Weight 108.862 kg GENERAL DESCRIPTION: Elderly male lying in bed, no distress. No tachypnea or accessory muscle of respiration use. HEENT: Shows Pallor , no scleral icterus. Oral mucous membrane is dry. No pharyngeal erythema or thrush NECK: Trachea central, no thyromegaly. LUNGS: Unlabored breathing. Clear to auscultation anteriorly. No wheeze or crackle. HEART: S1, S2, regular rate and rhythm. No loud murmur ABDOMEN: Soft, no tenderness , guarding or rigidity, no organomegaly EXTREMITIES: Left big toe amputation wound is almost healed did have some laceration patient did have discoloration of the right first and second toe with some erythema SKIN: No rash, no masses palpable. NEUROLOGICAL: The patient is awake, alert, oriented x3, mood and affect normal. Results CBC & Chem 7: 09/10/24 06:30 09/10/24 06:30 Labs: Abnormal Lab Results - Last 24 Hours (Table) 09/10/24 09/10/24 Range/Units 06:30 06:30 WBC 15.4 H (3.8-10.6) k/uL RBC 3.85 L (4.30-5.90) m/uL Hgb 11.7 L (13.0-17.5) gm/dL Hct 36.0 L (39.0-53.0) % Neutrophils # 13.8 H (1.3-7.7) k/uL Lymphocytes # 0.8 L (1.0-4.8) k/uL Sodium 136 L (137-145) mmol/L BUN 23 H (9-20) mg/dL Glucose 196 H (74-99) mg/dL Alkaline Phosphatase 221 H (38-126) U/L C-Reactive Protein 8.2 H (<1.0) mg/dL Assessment and Plan (1) Diabetic foot infection Current Visit: Yes Status: Acute Code(s): E11.628 - TYPE 2 DIABETES MELLITUS WITH OTHER SKIN COMPLICATIONS; L08.9 - LOCAL INFECTION OF THE SKIN AND SUBCUTANEOUS TISSUE, UNSP SNOMED Code(s): 513754071 (2) Diabetic foot ulcer Current Visit: Yes Status: Acute Code(s): E11.621 - TYPE 2 DIABETES MELLITUS WITH FOOT ULCER; L97.509 - NON-PRESSURE CHRONIC ULCER OTH PRT UNSP FOOT W UNSP SEVERITY SNOMED Code(s): 573420253 Plan: 1patient presented to hospital with discoloration to the right first and second toe in this patient who did have a previous history of left diabetic foot infection osteomyelitis requiring amputation of left big toe culture at that time was positive for MRSA and Finegoldia magna 2await vascular surgery evaluation for possible debridement versus amputation and deep culture 3we will continue patient on vancomycin pharmacy to dose however switch Zosyn to Unasyn decrease risk of nephrotoxicity We will follow on clinical condition and cultures to further adjust medication if needed Thank you for this consultation we will follow the patient along with you Dictation was produced using [employer] dictation software. please excuse any grammatical, word or spelling errors. Time with Patient: Greater than 30
[2024-09-11] MEDS: SPIRONOLACTONE 25 MG TAB PO SCH (07:58)
[2024-09-11] MEDS: FUROSEMIDE 20 MG TAB PO SCH (07:58)
[2024-09-11 09:00] LABS: African American GFR (CKD) >90 (>60 ml/min/1.73 sqM); Anion Gap 9 mmol/L; Blood Urea Nitrogen 22 mg/dL (9-20); Calcium 8.8 mg/dL (8.4-10.2); Carbon Dioxide 23 mmol/L (22-30); Chloride 106 mmol/L (98-107); Glucose 71 mg/dL (74-99); Magnesium 2.1 mg/dL (1.6-2.3); Non-African American GFR(CKD) 82 (>60 ml/min/1.73 sqM); Potassium 3.9 mmol/L (3.5-5.1); Sodium 138 mmol/L (137-145)
[2024-09-11 09:49] LABS: Basophils # (A) 0.04 X 10*3/uL (0.00-0.10); Basophils % (A) 0.2 %; Eosinophils # (A) 0.01 X 10*3/uL (0.04-0.35); Eosinophils % (A) 0 %; HCT 36.6 % (39.6-50.0); HGB 11.1 g/dL (13.0-17.0); Lymphocytes # (A) 0.57 X 10*3/uL (0.90-5.00); Lymphocytes % (A) 2.7 %; MCH 29.4 pg (27.0-32.0); MCHC 30.3 g/dL (32.0-37.0); MCV 96.8 FL (80.0-97.0); Monocytes # (A) 1.12 X 10*3/uL (0.20-1.00); Monocytes % (A) 5.3 %; NRBC Per 100 WBC 0 X 10*3/uL (0.00-0.01); Neutrophils % (A) 91.1 %; Platelet Count 224 X 10*3/uL (140-440); RBC 3.78 X 10*6/uL (4.40-5.60); RDW 14.6 % (11.5-14.5); WBC 21.09 X 10*3/uL (4.50-10.00)
[2024-09-11 12:16] LABS: Glucose,Whole Blood 118 mg/dL (70-110)
--- NOTE | 2024-09-11 14:02 | XR ---
EXAMINATION TYPE: XR chest 1V portable DATE OF EXAM: 09/11/2024 1:51 PM COMPARISON: Chest radiographs from 06/24/2024 CLINICAL INDICATION: Male, 68 years old with history of SOB; PHH TECHNIQUE: XR chest 1V portable Frontal view of the chest. FINDINGS: Lungs/Pleura: There is no evidence of pleural effusion, focal consolidation, or pneumothorax. Pulmonary vascularity: Pulmonary vascular congestion. Heart/mediastinum: Cardiomediastinal silhouette is enlarged. Musculoskeletal: No acute osseous pathology. IMPRESSION: Cardiomegaly and mild pulmonary vascular congestion. Correlate with BNP for congestive heart failure. [facility], , 09/11/2024 2:00 PM
[2024-09-11] MEDS: FUROSEMIDE 10 MG/ML 4 ML VIAL IV STA (16:00)
[2024-09-11] MEDS: HYDROcodone/APAP 5-325MG 1 EACH TAB PO PRN (16:00)
--- NOTE | 2024-09-11 16:04 | P.PN ---
Subjective Progress Note Date: 09/11/24 Patient was seen and examined. Reports some shortness of breath. Also with lower extremity edema. No other complaints. Smokes cigarettes since age 13. Never been on home oxygen. No diagnosis of COPD. Currently on 4.5L NC. CBC and BMP significant for WBC 21.09, RBC 3.78, Hg 11.1, Hct 36.6, BUN 22, glu 71. Mag 2.1. A1c 8.1. Maintained on Vancomycin and Unasyn. I ordered a CXR which showed cardiomegaly and pulmonary vascular congestion. General: non toxic, no distress, appears at stated age Derm: warm, dry Head: atraumatic, normocephalic, symmetric Eyes: EOMI, no lid lag, anicteric sclera Mouth: no lip lesion, mucus membranes moist Cardiovascular: S1S2 reg, no murmur Lungs: Crackles at the bases bilateral, no rhonchi, no rales , no accessory muscle use Ext: no gross muscle atrophy, 2+ pitting LE edema, no contractures Neuro: no focal neuro deficits Psych: Alert, oriented, appropriate affect Based on my assessment of this patient, this patient meets a high complexity level of care. Acute hypoxic respiratory failure secondary to systolic CHF exacerbation Sepsis secondary to cellulitis versus osteomyelitis of the right great toe Diabetes type 2 with diabetic neuropathy BPH Echo 06/20 shows EF 35-40%. Lasix 40 mg IV x 1 ordered. Continue Aldactone 25 mg PO QD. Ideally should be on beta shirin, Farxiga and ACEi. Strict intake and outtake. Daily weights. Monitor renal function and electrolytes while on Lasix IV + Vancomycin. Continue Vancomycin and Unasyn. ID on board. Pending Vascular Sx evaluation. Blood glucose 71 this morning. Will discontinue Levemir and continue ISS + Accuchecks ACHS with hypoglycemic precautions. Flomax 0.4 mg PO QHS. CODE STATUS: FULL CODE DVT Prophylaxis: Heparin SQ GI Prophylaxis: Designated medical POA if patient is not able to make medical decisions for themselves: I have reviewed the following bath design sales consultant notes: I have reviewed the results of the following tests: CBC, BMP, Mag, A1c, Echo 06/20. I have ordered the following tests: CBC and BMP in the AM. I have discussed the care of this patient with the following independent historian: SONYA. I have independently interpreted the following test below: CXR. I have discussed the management of this patient with the following physician: Dr. Grady. Objective - Vital Signs Vital signs: Vital Signs Temp 98.3 F 09/11/24 14:00 Pulse 98 09/11/24 14:00 Resp 17 09/11/24 14:00 BP 126/70 09/11/24 14:00 Pulse Ox 97 09/11/24 14:00 FiO2 Intake & Output 09/10/24 09/11/24 09/11/24 18:59 06:59 18:59 Intake Total 1820 360 Balance 1820 360 Weight 108.862 kg Intake: Intake, IV Titration 200 Amount Ampicillin-Sulbactam 3 gm 200 In Sodium Chloride 0.9% 100 ml @ 200 mls/hr IVPB Q6HR [facility] Rx#:[id number] Oral 1620 360 Other: Voiding Method Diaper Diaper # Voids 2 1 # Bowel Movements 1 - Labs CBC & Chem 7: 09/11/24 06:07 09/11/24 08:12 Labs: Abnormal Lab Results - Last 24 Hours (Table) 09/10/24 09/10/24 09/11/24 Range/Units 18:00 20:30 06:07 WBC (4.50-10.00) X 10*3/uL RBC (4.40-5.60) X 10*6/uL Hgb (13.0-17.0) g/dL Hct (39.6-50.0) % MCHC (32.0-37.0) g/dL RDW (11.5-14.5) % Immature Gran # (0.00-0.04) X 10*3/uL Neutrophils # (1.80-7.70) X 10*3/uL Lymphocytes # (0.90-5.00) X 10*3/uL Monocytes # (0.20-1.00) X 10*3/uL Eosinophils # (0.04-0.35) X 10*3/uL BUN (9-20) mg/dL Glucose (74-99) mg/dL POC Glucose (mg/dL) 196 H 205 H (70-110) mg/dL Hemoglobin A1c 8.1 H (<=6.0) % 09/11/24 09/11/24 09/11/24 Range/Units 06:07 08:12 12:11 WBC 21.09 H (4.50-10.00) X 10*3/uL RBC 3.78 L (4.40-5.60) X 10*6/uL Hgb 11.1 L (13.0-17.0) g/dL Hct 36.6 L (39.6-50.0) % MCHC 30.3 L (32.0-37.0) g/dL RDW 14.6 H (11.5-14.5) % Immature Gran # 0.15 H (0.00-0.04) X 10*3/uL Neutrophils # 19.20 H (1.80-7.70) X 10*3/uL Lymphocytes # 0.57 L (0.90-5.00) X 10*3/uL Monocytes # 1.12 H (0.20-1.00) X 10*3/uL Eosinophils # 0.01 L (0.04-0.35) X 10*3/uL BUN 22 H (9-20) mg/dL Glucose 71 L (74-99) mg/dL POC Glucose (mg/dL) 118 H (70-110) mg/dL Hemoglobin A1c (<=6.0) % Microbiology - Last 24 Hours (Table) 09/10/24 06:30 Blood Culture - Preliminary Blood
[2024-09-11 17:36] LABS: Glucose,Whole Blood 108 mg/dL (70-110)
[2024-09-11 20:49] LABS: Glucose,Whole Blood 99 mg/dL (70-110)
[2024-09-11] MEDS: ALBUTEROL NEBULIZED 2.5 MG/3 ML INHALATION PRN (22:54)
--- NOTE | 2024-09-11 23:19 | CONS ---
DATE OF CONSULTATION: 09/11/2024 HISTORY OF PRESENT ILLNESS: This is a 68-year-old gentleman, well known to me from the past. The patient had a big toe amputation in the past. The patient is very noncompliant. The patient came with marked ischemic changes involving the right big toe. PAST MEDICAL HISTORY: Diabetes, neuropathy, and history of uncontrolled diabetes mellitus. I was consulted for further evaluation. PAST SURGICAL HISTORY: Patient had a left big toe amputation done in the past. PHYSICAL EXAMINATION: NECK: Supple. No bruit appreciated. CHEST: Clear. Few crackles at the lung bases. First and second sounds present. VASCULAR: Femorals are 1+ bilateral. PT and DP not palpable. EXTREMITIES: Right big toe ischemic, tender and no Doppler signal noted. Left big toe amputation site is healed. I have discussed in detail with the patient. Patient will need ray amputation of the right big toe. Risks and complications discussed with the patient. The patient will be scheduled tomorrow. Keep the patient n.p.o. at midnight. MMGRAZYNA / SHINEN: [id number] / MTDD
[2024-09-12] MEDS: MELATONIN 5 MG TABLET PO SCH (00:28)
[2024-09-12 06:02] LABS: Glucose,Whole Blood 174 mg/dL (70-110)
[2024-09-12 07:29] LABS: HCT 34.3 % (39.0-53.0); HGB 11.1 gm/dL (13.0-17.5); Hypochromasia Slight; MCH 30.6 pg (25.0-35.0); MCHC 32.3 g/dL (31.0-37.0); MCV 94.6 fL (80.0-100.0); Mean Platelet Volume 8.8; Platelet Count 169 k/uL (150-450); RBC 3.62 m/uL (4.30-5.90); RDW 14.5 % (11.5-15.5); WBC 10.7 k/uL (3.8-10.6)
[2024-09-12 07:51] LABS: African American GFR (CKD) >90 (>60 ml/min/1.73 sqM); Anion Gap 10 mmol/L; Blood Urea Nitrogen 21 mg/dL (9-20); Calcium 8.5 mg/dL (8.4-10.2); Carbon Dioxide 20 mmol/L (22-30); Chloride 107 mmol/L (98-107); Glucose 134 mg/dL (74-99); Non-African American GFR(CKD) 82 (>60 ml/min/1.73 sqM); Potassium 3.8 mmol/L (3.5-5.1); Sodium 137 mmol/L (137-145)
[2024-09-12 12:06] LABS: Glucose,Whole Blood 136 mg/dL (70-110)
--- NOTE | 2024-09-12 12:45 | P.PN ---
Subjective Progress Note Date: 09/12/24 68 year old M with PMH of DM with neuropathy, BPH presented to the ED for right foot that has been getting increasingly painful, swollen, red, tender. In the ED he underwent extensive evaluation. BP 117/69, HR 103, T 98.1F, RR 20, 95% on RA. CBC, Coag panel, CMP significant for WBC 15.4, RBC 3.85, Hg 11.7, Hct 36, Na 136, BUN 23, glu 196, alk phos 22.1. Lactic acid 1.4. Mag 2.1. CRP 8.2. A1c 8.1. Foot XR showed moderate to severe diffuse soft tissue swelling with persistent linear 6 mm soft tissue foreign body at the level of 2nd proximal phalanx. Patient was started on Vancomycin and Zosyn and admitted for further workup and management. ID consulted recommended Vascular Sx consult. 09/11 Patient was seen and examined. Reports some shortness of breath. Also with lower extremity edema. No other complaints. Smokes cigarettes since age 13. Never been on home oxygen. No diagnosis of COPD. Currently on 4.5L NC. CBC and BMP significant for WBC 21.09, RBC 3.78, Hg 11.1, Hct 36.6, BUN 22, glu 71. Mag 2.1. A1c 8.1. Maintained on Vancomycin and Unasyn. I ordered a CXR which showed cardiomegaly and pulmonary vascular congestion. 09/12 Patient was seen and examined. Improved breathing. 94% on RA. Vascular Sx recommends amputation of the right big toe which is scheduled for today. CBC and BMP significant for WBC 10.7, RBC 3.62, Hg 11.1, Hct 34.3, bicarb 20, BUN 21, glu 134. Maintained on Vancomycin and Unasyn (D3). General: non toxic, no distress, appears at stated age Derm: warm, dry Head: atraumatic, normocephalic, symmetric Eyes: EOMI, no lid lag, anicteric sclera Mouth: no lip lesion, mucus membranes moist Cardiovascular: S1S2 reg, no murmur Lungs: Crackles at the bases bilateral, no rhonchi, no rales , no accessory muscle use Ext: no gross muscle atrophy, 2+ pitting LE edema, no contractures Neuro: no focal neuro deficits Psych: Alert, oriented, appropriate affect Based on my assessment of this patient, this patient meets a high complexity level of care. Acute hypoxic respiratory failure secondary to systolic CHF exacerbation Sepsis secondary to cellulitis versus osteomyelitis of the right great toe Diabetes type 2 with diabetic neuropathy BPH Echo 06/20 shows EF 35-40%. Lasix 40 mg IV x 1 on 09/11. Continue Aldactone 25 mg PO QD. Ideally should be on beta shirin, Farxiga and ACEi which he was on during his previous hospitalization and discharge. Strict intake and outtake. Daily weights. Monitor renal function and electrolytes while on Lasix IV + Vancomycin. Continue Vancomycin and Unasyn. ID and Vascular on board. Plans for amputation of the right big toe today. Continue ISS + Accuchecks ACHS with hypoglycemic precautions. Flomax 0.4 mg PO QHS. CODE STATUS: FULL CODE DVT Prophylaxis: Heparin SQ GI Prophylaxis: Designated medical POA if patient is not able to make medical decisions for themselves: I have reviewed the following linux consultant notes: Vascular Sx. I have reviewed the results of the following tests: CBC, BMP. I have ordered the following tests: CBC and BMP in the AM. I have discussed the care of this patient with the following independent istorian: I have independently interpreted the following test below: I have discussed the management of this patient with the following physician: Objective - Vital Signs Vital signs: Vital Signs Temp 97.6 F 09/12/24 08:00 Pulse 88 09/12/24 08:00 Resp 18 09/12/24 08:00 BP 116/74 09/12/24 08:00 Pulse Ox 94 L 09/12/24 08:00 FiO2 Intake & Output 09/11/24 09/12/24 09/12/24 18:59 06:59 18:59 Intake Total 360 Balance 360 Weight 108.862 kg Intake: Oral 360 Other: Voiding Method Diaper External Catheter External Catheter - Labs CBC & Chem 7: 09/12/24 06:21 09/12/24 06:21 Labs: Abnormal Lab Results - Last 24 Hours (Table) 09/12/24 09/12/24 09/12/24 Range/Units 05:59 06:21 06:21 WBC 10.7 H (3.8-10.6) k/uL RBC 3.62 L (4.30-5.90) m/uL Hgb 11.1 L (13.0-17.5) gm/dL Hct 34.3 L (39.0-53.0) % Carbon Dioxide 20 L (22-30) mmol/L BUN 21 H (9-20) mg/dL Glucose 134 H (74-99) mg/dL POC Glucose (mg/dL) 174 H (70-110) mg/dL 09/12/24 Range/Units 12:04 WBC (3.8-10.6) k/uL RBC (4.30-5.90) m/uL Hgb (13.0-17.5) gm/dL Hct (39.0-53.0) % Carbon Dioxide (22-30) mmol/L BUN (9-20) mg/dL Glucose (74-99) mg/dL POC Glucose (mg/dL) 136 H (70-110) mg/dL Microbiology - Last 24 Hours (Table) 09/10/24 06:30 Blood Culture - Preliminary Blood
[2024-09-12] MEDS: LORazepam 0.5 MG TAB PO PRN (14:28)
[2024-09-12] MEDS: ASPIRIN 81 MG PO SCH (15:47)
[2024-09-12] MEDS: NITROGLYCERIN OINT 1 INCH/GM PACKET TOPICAL SCH (15:47)
--- NOTE | 2024-09-12 16:23 | P.PN ---
Subjective Progress Note Date: 09/12/24 Principal diagnosis: Reason for follow-up right first and second toe diabetic foot infection Patient is a 68-year-old male with a past medical history significant for diabetes mellitus osteoarthritis neuropathy patient did have a left big toe diabetic foot infection requiring left big toe amputation subsequently admitted to the hospital for evaluation of the right big and second toe discoloration mostly on the big toe concerning for diabetic foot infection prompted this consultation. On today's evaluation that is 09/12/2024,the patient remains to be afebrile, pat ient is on room air not requiring supplemental oxygen and denies any shortness of breath no chest pain or cough.Patient denies having any nausea or vomiting, no abdominal pain and no diarrhea has been reported, pain to the right big and second toe is currently controlled Patient white count is down to 10.7, creatinine 0.96 blood cultures are pending Objective - Vital Signs Vital signs: Vital Signs Temp 97.6 F 09/12/24 08:00 Pulse 84 09/12/24 14:00 Resp 22 09/12/24 14:00 BP 116/66 09/12/24 14:00 Pulse Ox 95 09/12/24 14:00 FiO2 Intake & Output 09/11/24 09/12/24 09/12/24 18:59 06:59 18:59 Intake Total 360 Balance 360 Weight 108.862 kg Intake: Oral 360 Other: Voiding Method Diaper External Catheter External Catheter - Exam GENERAL DESCRIPTION: An elderly male lying in bed in no distress RESPIRATORY SYSTEM: Unlabored breathing , decreased breath sounds at bases HEART: S1 S2 regular rate and rhythm , ABDOMEN: Soft , no tenderness EXTREMITIES: Right big toe discoloration swelling no foul-smelling drainage - Labs CBC & Chem 7: 09/12/24 06:21 09/12/24 06:21 Labs: Abnormal Lab Results - Last 24 Hours (Table) 09/12/24 09/12/24 09/12/24 Range/Units 05:59 06:21 06:21 WBC 10.7 H (3.8-10.6) k/uL RBC 3.62 L (4.30-5.90) m/uL Hgb 11.1 L (13.0-17.5) gm/dL Hct 34.3 L (39.0-53.0) % Carbon Dioxide 20 L (22-30) mmol/L BUN 21 H (9-20) mg/dL Glucose 134 H (74-99) mg/dL POC Glucose (mg/dL) 174 H (70-110) mg/dL Troponin I (0.000-0.034) ng/mL 09/12/24 09/12/24 Range/Units 12:04 14:17 WBC (3.8-10.6) k/uL RBC (4.30-5.90) m/uL Hgb (13.0-17.5) gm/dL Hct (39.0-53.0) % Carbon Dioxide (22-30) mmol/L BUN (9-20) mg/dL Glucose (74-99) mg/dL POC Glucose (mg/dL) 136 H (70-110) mg/dL Troponin I 0.045 H* (0.000-0.034) ng/mL Microbiology - Last 24 Hours (Table) 09/10/24 06:30 Blood Culture - Preliminary Blood Assessment and Plan (1) Diabetic foot infection Current Visit: Yes Status: Acute Code(s): E11.628 - TYPE 2 DIABETES MELLITUS WITH OTHER SKIN COMPLICATIONS; L08.9 - LOCAL INFECTION OF THE SKIN AND SUBCUTANEOUS TISSUE, UNSP SNOMED Code(s): 645163864 (2) Diabetic foot ulcer Current Visit: Yes Status: Acute Code(s): E11.621 - TYPE 2 DIABETES MELLITUS WITH FOOT ULCER; L97.509 - NON-PRESSURE CHRONIC ULCER OTH PRT UNSP FOOT W UNSP SEVERITY SNOMED Code(s): 493554847 Plan: 1patient presented to hospital with discoloration to the right first and second toe in this patient who did have a previous history of left diabetic foot infection osteomyelitis requiring amputation of left big toe culture at that time was positive for MRSA and Finegoldia magna 2patient has been evaluated by vascular surgery and consider possible amputation of the right first and second toe 3patient to continue with vancomycin pharmacy to dose and Unasyn awaiting debridement and deep cultures that will determine discharge antibiotics Dictation was produced using [employer] dictation software. please excuse any gram matical, word or spelling errors.
[2024-09-12] MEDS: HEPARIN SOD,PORK IN 0.45% NACL 25,000 UNIT in 0.45% NACL 1 250ML.BAG IV SCH (16:28)
[2024-09-12 17:06] LABS: Glucose,Whole Blood 212 mg/dL (70-110)
[2024-09-12 17:06] LABS: Basophils % (A) 0 %; Eosinophils % (A) 0 %; HCT 38.1 % (39.0-53.0); HGB 12.1 gm/dL (13.0-17.5); Hypochromasia Slight; Lymphocytes # (A) 0.2 k/uL (1.0-4.8); Lymphocytes % (A) 2 %; MCH 30.4 pg (25.0-35.0); MCHC 31.7 g/dL (31.0-37.0); MCV 95.9 fL (80.0-100.0); Mean Platelet Volume 9.2; Monocytes # (A) 0.7 k/uL (0-1.0); Monocytes % (A) 5 %; Neutrophils # (A) 11.3 k/uL (1.3-7.7); Neutrophils % (A) 92 %; Platelet Count 167 k/uL (150-450); RBC 3.98 m/uL (4.30-5.90); RDW 14.6 % (11.5-15.5); WBC 12.3 k/uL (3.8-10.6)
[2024-09-12 17:22] LABS: INR 1.1 (<1.2); Partial Thromboplastin Time 28.3 sec (22.0-30.0); Prothrombin Time 12.1 sec (10.0-12.5)
[2024-09-12 17:25] LABS: Anion Gap 14 mmol/L; Blood Urea Nitrogen 22 mg/dL (9-20); Carbon Dioxide 20 mmol/L (22-30); Chloride 103 mmol/L (98-107); Glucose 214 mg/dL (74-99); Potassium 3.6 mmol/L (3.5-5.1); Sodium 137 mmol/L (137-145)
[2024-09-12 17:26] LABS: African American GFR (CKD) >90 (>60 ml/min/1.73 sqM); Calcium 8.4 mg/dL (8.4-10.2); Non-African American GFR(CKD) 81 (>60 ml/min/1.73 sqM)
[2024-09-12] MEDS: VANCOMYCIN TROUGH DUE 1 EACH MISC MISCELLANE ONE (18:16)
--- NOTE | 2024-09-12 18:36 | XR ---
EXAMINATION TYPE: XR chest 2V DATE OF EXAM: 09/12/2024 6:17 PM COMPARISON: None. CLINICAL INDICATION: Male, 68 years old with history of SOB/Chest pain, TECHNIQUE: XR chest 2V view(s) obtained. FINDINGS: The heart size is prominent. The pulmonary vasculature is normal. Bibasilar infiltrates are present. Correlate for atelectasis.. IMPRESSION: 1. Bibasilar infiltrates. Correlate for atelectasis. Some adjacent small pleural effusions are not ex cluded. Follow-up is recommended [facility], , 09/12/2024 6:33 PM
--- NOTE | 2024-09-12 18:46 | P.CRDCN ---
History of Present Illness Consult date: 09/12/24 History of present illness: History of Present Illness: The patient is a 68-year-old male with known history of diabetes, diabetic foot, prior amputation of toes on the left side who presented with infection of the right big toe and has been evaluated for amputation. Cardiology consultation was requested because of episodes of chest discomfort. The patient has been seen by Dr. Frias in the past. He had prior echocardiogram that suggested cardiomyopathy. Today he had episode of chest discomfort with some dyspnea. At the time of my evaluation his discomfort is better. He denies any palpitations or dizziness. He continues to be in sinus mechanism. He is limited in his physical activity. He has peripheral edema but no clear PND nor orthopnea. The history of hypertension, hyperlipidemia and chronic tobacco use. He had a limited echocardiogram in May that was reported showing an ejection fraction of 35 to 40%. And had mild troponin elevation. Medications: At home he is on Lasix 20 mg daily, spironolactone 25 mg daily, insulin, Flomax Review of Systems: Respiratory: He has dyspnea on exertion no recent wheezing or cough GI: No nausea or vomiting . No history of peptic ulcer disease. No recent GI bleed. : No hematuria or dysuria. Nervous System: No stroke or seizure. Physical Examination: 68-year-old male mildly dyspneic appears older than stated age,Blood pressure 108/60, Heart rate 80 Head: Normocephalic. Eyes: Sclerae nonicteric. Neck: Good carotid upstroke, no bruit, no jugular venous distention. Lungs: Clear to auscultation. Heart: Regular rate and rhythm, S1-S2, no S3, no rub. Systolic ejection murmur. Abdomen: Soft nontender, positive bowel sounds no organomegaly. Extremities: +2 edema, gangrenous right toe with amputation on the left side. Labs: WBC 12.3, BUN 22, creatinine 0.97. Troponin 0.045 and 0.043. EKG: Sinus mechanism with right bundle branch block, noted in the past Impression: 1. Symptoms of chest discomfort, possible non-STEMI in a patient with multiple risk factors 2. Gangrenous toe 3. History of diabetes 4. Chronic tobacco use 5. Cardiomyopathy of unclear etiology 6. Prior history of hypertension 7. History of hyperlipidemia Plan: 1. Start IV heparin and Nitropaste 2. Add statin and low-dose beta-shirin 3. Obtain a repeat echocardiogram 4. I have recommended to proceed with coronary angiography in view of his symptoms and his multiple risk factors, the risks and the complications were discussed with the patient 5. 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, NEEDLE ASPIRATION LEFT EYE Q 3 MONTHS, [facility]IN CL[facility] Past Anesthesia/Blood Transfusion Reactions: No Reported Reaction Past Psychological History: Anxiety Smoking Status: Current every day smoker Past Alcohol Use History: None Reported Past Drug Use History: None Reported - Past Family History Mother Family Medical History: Cancer Additional Family Medical History / Comment(s): BREAST Sister(s) Family Medical History: Cancer Medications and Allergies Home Medications Medication Instructions Recorded Confirmed Type Albuterol Inhaler [Ventolin Hfa 3 puff INHALATION RT-QID PRN 05/21/24 09/10/24 History Inhaler] Tamsulosin [Flomax] 0.4 mg PO HS 06/13/24 09/10/24 History Furosemide [Lasix] 20 mg PO DAILY #14 tab 06/18/24 09/10/24 Rx Spironolactone [Aldactone] 25 mg PO DAILY #7 tablet 06/19/24 09/10/24 Rx Acetaminophen 500 - 1,000 mg PO Q8H PRN 09/10/24 09/10/24 History Haloperidol Oral Soln [Haldol Oral 2 - 4 mg PO Q4H PRN 09/10/24 09/10/24 History Soln] Insulin Glargine [Lantus Vial] 20 unit SQ HS 09/10/24 09/10/24 History LORazepam [Ativan] 0.5 - 1 mg PO Q12H PRN 09/10/24 09/10/24 History Nystatin 100,000 Unit/gm Powd 1 applic TOPICAL TID 09/10/24 09/10/24 History [Mycostatin Powder] Prochlorperazine Suppository 25 mg RECTAL Q8H PRN 09/10/24 09/10/24 History [Compazine] Sennosides/Docusate Sodium [Senna 1 tab PO BID PRN 09/10/24 09/10/24 History Plus 8.6-50 mg Tablet] Allergies Allergy/AdvReac Type Severity Reaction Status Date / Time No Known Allergies Allergy Verified 09/10/24 11:29 Physical Exam Vitals: Vital Signs Temp Pulse Pulse Resp BP Pulse Ox 09/12/24 16:45 94.4 F L 81 18 108/63 99 09/12/24 14:00 84 22 116/66 95 09/12/24 13:40 83 119/72 96 09/12/24 08:00 97.6 F 88 18 116/74 94 L 09/12/24 02:00 98.1 F 90 18 110/66 97 09/11/24 23:08 77 09/11/24 22:54 80 09/11/24 19:13 98.2 F 78 17 97/64 100 Intake and Output 09/12/24 09/12/24 09/12/24 06:59 14:59 22:59 Intake Total 360 Output Total 500 Balance -140 Intake: Oral 360 Output: Urine 500 Uretheral ([place]) 500 Other: Voiding Method External Catheter Weight 108.862 kg Results 09/12/24 16:52 09/12/24 16:52 Cardiac Enzymes 09/12/24 09/12/24 Range/Units 14:17 16:52 Troponin I 0.045 H* 0.043 H* (0.000-0.034) ng/mL Coagulation 09/12/24 Range/Units 16:52 PT 12.1 (10.0-12.5) sec APTT 28.3 (22.0-30.0) sec CBC 09/12/24 09/12/24 Range/Units 06:21 16:52 WBC 10.7 H 12.3 H (3.8-10.6) k/uL RBC 3.62 L 3.98 L (4.30-5.90) m/uL Hgb 11.1 L 12.1 L (13.0-17.5) gm/dL Hct 34.3 L 38.1 L (39.0-53.0) % Plt Count 169 167 (150-450) k/uL Comprehensive Metabolic Panel 09/12/24 09/12/24 Range/Units 06:21 16:52 Sodium 137 137 (137-145) mmol/L Potassium 3.8 3.6 (3.5-5.1) mmol/L Chloride 107 103 (98-107) mmol/L Carbon Dioxide 20 L 20 L (22-30) mmol/L BUN 21 H 22 H (9-20) mg/dL Creatinine 0.96 0.97 (0.66-1.25) mg/dL Glucose 134 H 214 H (74-99) mg/dL Calcium 8.5 8.4 (8.4-10.2) mg/dL Current Medications Generic Name Dose Route Start Last Admin Trade Name Freq PRN Reason Stop Dose Admin Acetaminophen 650 mg 09/10/24 07:47 Acetaminophen Tab 325 Mg Tab PO Q6HR PRN Mild Pain or Fever > 100.5 Hydrocodone Bitart/Acetaminophen 1 each 09/10/24 07:47 09/12/24 15:18 Hydrocodone/Apap 5-325mg 1 Each Tab PO 1 each Q4HR PRN Administration Moderate Pain (Scale 4 to 6) Albuterol Sulfate 2.5 mg 09/10/24 12:08 09/11/24 22:54 Albuterol Nebulized 2.5 Mg/3 Ml INHALATION 2.5 mg RT-QID PRN Administration Shortness Of Breath Aspirin 81 mg 09/12/24 15:30 09/12/24 15:47 Aspirin 81 Mg PO 81 mg DAILY [place]INA Administration Dextrose/Water 25 ml 09/10/24 18:12 Dextrose 50% Syringe 50 Ml IVP PER PROTOCOL PRN Hypoglycemia Protocol Dextrose/Water 50 ml 09/10/24 18:12 Dextrose 50% Syringe 50 Ml IVP PER PROTOCOL PRN Hypoglycemia Protocol Furosemide 20 mg 09/11/24 09:00 09/12/24 09:26 Furosemide 20 Mg Tab PO 20 mg DAILY [place] Administration Haloperidol Lactate 4 mg 09/10/24 12:08 Haloperidol Oral Soln 10 Mg/5 Ml Cup PO Q4H PRN Agitation Heparin Sodium (Porcine) 0 unit 09/12/24 16:04 Heparin Sodium 1,000 Un/Ml (10ml Vl) IV PER PROTOCOL PRN Low PTT Protocol Ampicillin Sodium/Sulbactam 100 mls @ 200 mls/hr 09/10/24 18:00 09/12/24 18:30 Sodium 3 gm/ Sodium Chloride IVPB 200 mls/hr Q6HR [place] Administration Protocol Heparin Sodium/Sodium Chloride 250 mls @ 10.015 mls/hr 09/12/24 16:15 09/12/24 16:28 25,000 unit/ Sodium Chloride IV 9.2 units/kg/hr .Q24H [place]INA 10.015 mls/hr Administration Protocol 9.2 UNITS/KG/HR Vancomycin HCl 1,750 mg/ 500 mls @ 167 mls/hr 09/12/24 21:00 Sodium Chloride IVPB Q24H [place]INA Insulin Aspart 0 unit 09/10/24 21:00 09/12/24 18:20 Insulin Aspart (Novolog) 100 Unit/Ml Vial SQ 4 unit ACHS [place] Administration Protocol Lorazepam 0.5 mg 09/12/24 14:20 09/12/24 14:28 Lorazepam 0.5 Mg Tab PO 0.5 mg Q12HR PRN Administration Anxiety Melatonin 5 mg 09/12/24 00:30 09/12/24 00:28 Melatonin 5 Mg Tablet PO 5 mg HS [place] Administration Naloxone HCl 0.2 mg 09/10/24 07:47 Naloxone 0.4 Mg/Ml 1 Ml Vial IV Q2M PRN Opioid Reversal Nitroglycerin 1 inch 09/12/24 16:00 09/12/24 15:47 Nitroglycerin Oint 1 Inch/Gm Packet TOPICAL 1 inch Q8HR [place] Administration Ondansetron HCl 4 mg 09/10/24 07:47 Ondansetron 4 Mg/2 Ml Vial IVP Q8HR PRN Nausea And Vomiting Spironolactone 25 mg 09/11/24 09:00 09/12/24 09:26 Spironolactone 25 Mg Tab PO 25 mg DAILY [place] Administration Tamsulosin HCl 0.4 mg 09/10/24 21:00 09/11/24 20:45 Tamsulosin 0.4 Mg Cap.Er.24h PO 0.4 mg HS CHINA Administration Intake and Output 09/12/24 09/12/24 09/12/24 06:59 14:59 22:59 Intake Total 360 Output Total 500 Balance -140 Intake: Oral 360 Output: Urine 500 Uretheral ([place]) 500 Other: Voiding Method External Catheter Weight 108.862 kg Patient Weight 09/13/24 06:59 Weight 108.862 kg 09/12/24 16:52 09/12/24 16:52
[2024-09-12] MEDS ORDERED: NITROGLYCERIN SL TABS 0.4 MG TAB SUBLINGUAL PRN (18:47)
[2024-09-12 20:08] LABS: Glucose,Whole Blood 203 mg/dL (70-110)
[2024-09-12] MEDS: ATORVASTATIN 40 MG TAB PO SCH (21:05)
[2024-09-12] MEDS: METOPROLOL TARTRATE 25 MG TAB PO SCH (21:05)
[2024-09-12] MEDS: FUROSEMIDE 10 MG/ML 4 ML VIAL IV SCH (21:05)
[2024-09-12] MEDS: VANCOMYCIN 1,750 MG in SODIUM CHLORIDE 0.9% 500 ML 500 ML IVPB SCH (21:06)
[2024-09-12] MEDS: ALPRAZolam 0.5 MG TAB PO PRN (23:23)
[2024-09-12] MEDS: methylPREDNISolone SOD SUCCI 40 MG/ML 1 ML VIAL IV STA (23:43)
[2024-09-13 06:25] LABS: Glucose,Whole Blood 188 mg/dL (70-110)
[2024-09-13] MEDS: ATORVASTATIN 80 MG TAB PO ONE (06:29)
[2024-09-13] MEDS: ASPIRIN 325 MG TAB PO ONE (06:29)
[2024-09-13 07:52] LABS: Basophils % (A) 0 %; Eosinophils % (A) 0 %; HCT 34.3 % (39.0-53.0); Hypochromasia Slight; Lymphocytes # (A) 0.3 k/uL (1.0-4.8); Lymphocytes % (A) 2 %; MCH 30.7 pg (25.0-35.0); MCHC 32.2 g/dL (31.0-37.0); MCV 95.5 fL (80.0-100.0); Mean Platelet Volume 9.6; Monocytes # (A) 0.3 k/uL (0-1.0); Monocytes % (A) 2 %; Neutrophils # (A) 13.5 k/uL (1.3-7.7); Neutrophils % (A) 95 %; Platelet Count 171 k/uL (150-450); RBC 3.59 m/uL (4.30-5.90); RDW 15.1 % (11.5-15.5); WBC 14.2 k/uL (3.8-10.6)
[2024-09-13 07:59] LABS: INR 1.2 (<1.2); Partial Thromboplastin Time 72.2 sec (22.0-30.0)
[2024-09-13 08:35] LABS: African American GFR (CKD) 70 (>60 ml/min/1.73 sqM); Anion Gap 12 mmol/L; Blood Urea Nitrogen 26 mg/dL (9-20); Carbon Dioxide 19 mmol/L (22-30); Chloride 106 mmol/L (98-107); Glucose 185 mg/dL (74-99); Non-African American GFR(CKD) 60 (>60 ml/min/1.73 sqM); Sodium 137 mmol/L (137-145)
[2024-09-13] MEDS: SODIUM CHLORIDE 0.9% 1,000 ML IV SCH ×2 (09:53→17:54)
--- NOTE | 2024-09-13 11:31 | P.PN ---
Subjective Progress Note Date: 09/13/24 History of Present Illness: The patient is a 68-year-old male with known history of diabetes, diabetic foot, prior amputation of toes on the left side who presented with infection of the right big toe and has been evaluated for amputation. Cardiology consultation was requested because of episodes of chest discomfort. The patient has been seen by Dr. Frias in the past. He had prior echocardiogram that suggested cardiomyopathy. Today he had episode of chest discomfort with some dyspnea. At the time of my evaluation his discomfort is better. He denies any palpitations or dizziness. He continues to be in sinus mechanism. He is limited in his physical activity. He has peripheral edema but no clear PND nor orthopnea. The history of hypertension, hyperlipidemia and chronic tobacco use. He had a limited echocardiogram in May that was reported showing an ejection fraction of 35 to 40%. And had mild troponin elevation. Medications: At home he is on Lasix 20 mg daily, spironolactone 25 mg daily, insulin, Flomax 09/13 Patient seen and examined today on the cardiac stepdown unit. Blood pressure this morning at 90/55 and Lasix held and patient started on IV fluids 0.9 normal saline at 75 cc/h. Creatinine is 1.23. Patient is scheduled for cardiac catheterization today with Dr. Frias. Physical Examination: 68-year-old male mildly dyspneic appears older than stated age,Blood pressure 108/60, Heart rate 80 Head: Normocephalic. Eyes: Sclerae nonicteric. Neck: Good carotid upstroke, no bruit, no jugular venous distention. Lungs: Clear to auscultation. Heart: Regular rate and rhythm, S1-S2, no S3, no rub. Systolic ejection murmur. Abdomen: Soft nontender, positive bowel sounds no organomegaly. Extremities: +2 edema, gangrenous right toe with amputation on the left side. Labs: WBC 12.3, BUN 22, creatinine 0.97. Troponin 0.045 and 0.043. EKG: Sinus mechanism with right bundle branch block, noted in the past Impression: 1. Symptoms of chest discomfort, possible non-STEMI in a patient with multiple risk factors 2. Gangrenous toe 3. History of diabetes 4. Chronic tobacco use 5. Cardiomyopathy of unclear etiology 6. Prior history of hypertension 7. History of hyperlipidemia Plan: Continue IV heparin and Nitropaste Continue the addition of statin and low-dose beta-shirin Hold this morning's Lasix Start patient on IV fluids 0.9 normal saline at 75 cc/h Discontinue Nitropaste Obtain a repeat echocardiogram Patient is scheduled for coronary angiography today with Dr. Frias Further recommendations as patient progresses Nurse practitioner note has been reviewed, I agree with documented findings and plan of care. Patient was seen and examined. Objective - Vital Signs Vital signs: Vital Signs Temp 96.5 F L 09/13/24 08:00 Pulse 71 09/13/24 08:00 Resp 18 09/13/24 08:00 BP 90/55 09/13/24 08:00 Pulse Ox 98 09/13/24 08:00 FiO2 Intake & Output 09/12/24 09/13/24 09/13/24 18:59 06:59 18:59 Intake Total 360 Output Total 500 200 Balance -140 -200 Weight 108.862 kg 108.5 kg Intake: Oral 360 Output: Urine 500 200 Uretheral ([place]) 500 Other: Voiding Method External Catheter Indwelling Catheter Indwelling Catheter # Bowel Movements 1 - Labs CBC & Chem 7: 09/13/24 07:28 09/13/24 07:28 Labs: Abnormal Lab Results - Last 24 Hours (Table) 09/12/24 09/12/24 09/12/24 Range/Units 12:04 14:17 16:52 WBC (3.8-10.6) k/uL RBC (4.30-5.90) m/uL Hgb (13.0-17.5) gm/dL Hct (39.0-53.0) % Neutrophils # (1.3-7.7) k/uL Lymphocytes # (1.0-4.8) k/uL PT (10.0-12.5) sec INR (<1.2) APTT (22.0-30.0) sec Carbon Dioxide (22-30) mmol/L BUN (9-20) mg/dL Glucose (74-99) mg/dL POC Glucose (mg/dL) 136 H (70-110) mg/dL Calcium (8.4-10.2) mg/dL Troponin I 0.045 H* 0.043 H* (0.000-0.034) ng/mL 09/12/24 09/12/24 09/12/24 Range/Units 16:52 16:52 17:05 WBC 12.3 H (3.8-10.6) k/uL RBC 3.98 L (4.30-5.90) m/uL Hgb 12.1 L (13.0-17.5) gm/dL Hct 38.1 L (39.0-53.0) % Neutrophils # 11.3 H (1.3-7.7) k/uL Lymphocytes # 0.2 L (1.0-4.8) k/uL PT (10.0-12.5) sec INR (<1.2) APTT (22.0-30.0) sec Carbon Dioxide 20 L (22-30) mmol/L BUN 22 H (9-20) mg/dL Glucose 214 H (74-99) mg/dL POC Glucose (mg/dL) 212 H (70-110) mg/dL Calcium (8.4-10.2) mg/dL Troponin I (0.000-0.034) ng/mL 09/12/24 09/12/24 09/13/24 Range/Units 20:04 21:28 06:23 WBC (3.8-10.6) k/uL RBC (4.30-5.90) m/uL Hgb (13.0-17.5) gm/dL Hct (39.0-53.0) % Neutrophils # (1.3-7.7) k/uL Lymphocytes # (1.0-4.8) k/uL PT (10.0-12.5) sec INR (<1.2) APTT 52.3 H (22.0-30.0) sec Carbon Dioxide (22-30) mmol/L BUN (9-20) mg/dL Glucose (74-99) mg/dL POC Glucose (mg/dL) 203 H 188 H (70-110) mg/dL Calcium (8.4-10.2) mg/dL Troponin I (0.000-0.034) ng/mL 09/13/24 09/13/24 09/13/24 Range/Units 07:28 07:28 07:28 WBC 14.2 H (3.8-10.6) k/uL RBC 3.59 L (4.30-5.90) m/uL Hgb 11.0 L (13.0-17.5) gm/dL Hct 34.3 L (39.0-53.0) % Neutrophils # 13.5 H (1.3-7.7) k/uL Lymphocytes # 0.3 L (1.0-4.8) k/uL PT 13.0 H (10.0-12.5) sec INR 1.2 H (<1.2) APTT 72.2 H (22.0-30.0) sec Carbon Dioxide 19 L (22-30) mmol/L BUN 26 H (9-20) mg/dL Glucose 185 H (74-99) mg/dL POC Glucose (mg/dL) (70-110) mg/dL Calcium 8.0 L (8.4-10.2) mg/dL Troponin I (0.000-0.034) ng/mL Microbiology - Last 24 Hours (Table) 09/10/24 06:30 Blood Culture - Preliminary Blood
[2024-09-13 11:37] LABS: Glucose,Whole Blood 209 mg/dL (70-110)
--- NOTE | 2024-09-13 13:24 | US ---
EXAMINATION TYPE: US venous doppler duplex LE BI DATE OF EXAM: 09/13/2024 1:18 PM COMPARISON: NONE CLINICAL INDICATION: Male, 68 years old with history of DVT; Patient denies any signs, symptoms, or r elevant history, Pain TECHNIQUE: The lower extremity deep venous system is examined utilizing real time linear array sonog emerald with graded compression, color doppler sonography, and spectral doppler. SIDE PERFORMED: Bilateral FINDINGS: VESSELS IMAGED: Common Femoral Vein Deep Femoral Vein Greater Saphenous Vein * Femoral Vein Popliteal Vein Small Saphenous Vein * Proximal Calf Veins (* superficial vessels) Right Leg: Negative for DVT, Color Doppler imaging shows patency of the vessels. Spectral waveforms are within normal limits. Left Leg: Negative for DVT, Color Doppler imaging shows patency of the vessels. Spectral waveforms a re within normal limits. IMPRESSION: 1. Bilateral lower extremity ultrasound negative for deep venous thrombosis. [facility], Workstation: [facility], 09/13/2024 1:22 PM
--- NOTE | 2024-09-13 14:09 | P.PN ---
Subjective Progress Note Date: 09/13/24 68 year old M with PMH of DM with neuropathy, BPH presented to the ED for right foot that has been getting increasingly painful, swollen, red, tender. In the ED he underwent extensive evaluation. BP 117/69, HR 103, T 98.1F, RR 20, 95% on RA. CBC, Coag panel, CMP significant for WBC 15.4, RBC 3.85, Hg 11.7, Hct 36, Na 136, BUN 23, glu 196, alk phos 22.1. Lactic acid 1.4. Mag 2.1. CRP 8.2. A1c 8.1. Foot XR showed moderate to severe diffuse soft tissue swelling with persistent linear 6 mm soft tissue foreign body at the level of 2nd proximal phalanx. Patient was started on Vancomycin and Zosyn and admitted for further workup and management. ID consulted recommended Vascular Sx consult. 09/11 Patient was seen and examined. Reports some shortness of breath. Also with lower extremity edema. No other complaints. Smokes cigarettes since age 13. Never been on home oxygen. No diagnosis of COPD. Currently on 4.5L NC. CBC and BMP significant for WBC 21.09, RBC 3.78, Hg 11.1, Hct 36.6, BUN 22, glu 71. Mag 2.1. A1c 8.1. Maintained on Vancomycin and Unasyn. I ordered a CXR which showed cardiomegaly and pulmonary vascular congestion. 09/12 Patient was seen and examined. Improved breathing. 94% on RA. Vascular Sx recommends amputation of the right big toe which is scheduled for today. CBC and BMP significant for WBC 10.7, RBC 3.62, Hg 11.1, Hct 34.3, bicarb 20, BUN 21, glu 134. Maintained on Vancomycin and Unasyn (D3). 09/13 Patient was seen and examined. Patient reported chest pain yesterday afte rnoon thus transferred to and plans for OR was cancelled. Troponin was 0.045, 0.043. Heparin drip was started and Cardiology consulted. Today, he continues to report chest pain but less intense than yesterday. Pain is worsened with deep inspiration. Plans for cardiac cath today. CBC, Coag panel, CMP significant for WBC 14.2, RBC 3.59, Hg 11, Hct 34.3, PT 13, INR 1.2, APTT 72.2, bicarb 19, BUN 2 6, glu 185, Ca 8. General: non toxic, no distress, appears at stated age Derm: warm, dry Head: atraumatic, normocephalic, symmetric Eyes: EOMI, no lid lag, anicteric sclera Mouth: no lip lesion, mucus membranes moist Cardiovascular: S1S2 reg, no murmur Lungs: Crackles at the bases bilateral, no rhonchi, no rales , no accessory muscle use Ext: no gross muscle atrophy, 2+ pitting LE edema, no contractures Neuro: no focal neuro deficits Psych: Alert, oriented, appropriate affect Based on my assessment of this patient, this patient meets a high complexity level of care. NSTEMI Acute hypoxic respiratory failure secondary to systolic CHF exacerbation Sepsis secondary to cellulitis versus osteomyelitis of the right great toe Diabetes type 2 with diabetic neuropathy BPH Continue heparin drip. Monitor APTT. ASA 81 mg PO QD. Lipitor 40 mg PO QD. Metoprolol 25 mg PO BID. Plans for cardiac cath. Echo ordered. Venous duplex ordered to rule out DVT. May need CTA chest if cardiac cath is unrevealing. Telemetry monitoring. Cardiology on board. Echo 06/20 shows EF 35-40%. Lasix 40 mg IV x 1 on 09/11. Continue Aldactone 25 mg PO QD. Metoprolol as above. Ideally should be on Farxiga and ACEi which he was on during his previous hospitalization and discharge. Strict intake and outtake. Daily weights. Monitor renal function and electrolytes while on Lasix IV + Vancomycin. Continue Vancomycin and Unasyn. ID and Vascular on board. Plans for amputation of the right big toe when cleared by Cardiology. Continue ISS + Accuchecks ACHS with hypoglycemic precautions. Flomax 0.4 mg PO QHS. CODE STATUS: FULL CODE DVT Prophylaxis: Heparin drip GI Prophylaxis: Designated medical POA if patient is not able to make medical decisions for themselves: I have reviewed the following alliances consultant notes: Cardiology. I have reviewed the results of the following tests: CBC, BMP, Coag panel, Trop x 2. I have ordered the following tests: CBC and BMP in the AM. Venous duplex. I have discussed the care of this patient with the following independent historian: I have independently interpreted the following test below: I have discussed the management of this patient with the following physician: Objective - Vital Signs Vital signs: Vital Signs Temp 96.5 F L 09/13/24 08:00 Pulse 67 09/13/24 12:00 Resp 18 09/13/24 12:00 BP 157/57 09/13/24 12:00 Pulse Ox 99 09/13/24 12:00 FiO2 Intake & Output 09/12/24 09/13/24 09/13/24 18:59 06:59 18:59 Intake Total 360 191.787 Output Total 500 200 Balance -140 -200 191.787 Weight 108.862 kg 108.5 kg Intake: Intake, IV Titration 191.787 Amount Heparin Sod,Pork in 0.45% 191.787 NaCl 25,000 unit In 0.45 % NaCl 1 250ml.bag @ 9.2 UNITS/KG/HR 10.015 mls/hr IV .Q24H [facility] Rx#: [id number] Oral 360 Output: Urine 500 200 Uretheral ([place]) 500 Other: Voiding Method External Catheter Indwelling Catheter Indwelling Catheter # Bowel Movements 1 - Labs CBC & Chem 7: 09/13/24 07:28 09/13/24 07:28 Labs: Abnormal Lab Results - Last 24 Hours (Table) 09/12/24 09/12/24 09/12/24 Range/Units 14:17 16:52 16:52 WBC 12.3 H (3.8-10.6) k/uL RBC 3.98 L (4.30-5.90) m/uL Hgb 12.1 L (13.0-17.5) gm/dL Hct 38.1 L (39.0-53.0) % Neutrophils # 11.3 H (1.3-7.7) k/uL Lymphocytes # 0.2 L (1.0-4.8) k/uL PT (10.0-12.5) sec INR (<1.2) APTT (22.0-30.0) sec Carbon Dioxide (22-30) mmol/L BUN (9-20) mg/dL Glucose (74-99) mg/dL POC Glucose (mg/dL) (70-110) mg/dL Calcium (8.4-10.2) mg/dL Troponin I 0.045 H* 0.043 H* (0.000-0.034) ng/mL 01/09/12/24 09/12/24 Range/Units 16:52 17:05 20:04 WBC (3.8-10.6) k/uL RBC (4.30-5.90) m/uL Hgb (13.0-17.5) gm/dL Hct (39.0-53.0) % Neutrophils # (1.3-7.7) k/uL Lymphocytes # (1.0-4.8) k/uL PT (10.0-12.5) sec INR (<1.2) APTT (22.0-30.0) sec Carbon Dioxide 20 L (22-30) mmol/L BUN 22 H (9-20) mg/dL Glucose 214 H (74-99) mg/dL POC Glucose (mg/dL) 212 H 203 H (70-110) mg/dL Calcium (8.4-10.2) mg/dL Troponin I (0.000-0.034) ng/mL 09/12/24 09/13/24 09/13/24 Range/Units 21:28 06:23 07:28 WBC 14.2 H (3.8-10.6) k/uL RBC 3.59 L (4.30-5.90) m/uL Hgb 11.0 L (13.0-17.5) gm/dL Hct 34.3 L (39.0-53.0) % Neutrophils # 13.5 H (1.3-7.7) k/uL Lymphocytes # 0.3 L (1.0-4.8) k/uL PT (10.0-12.5) sec INR (<1.2) APTT 52.3 H (22.0-30.0) sec Carbon Dioxide (22-30) mmol/L BUN (9-20) mg/dL Glucose (74-99) mg/dL POC Glucose (mg/dL) 188 H (70-110) mg/dL Calcium (8.4-10.2) mg/dL Troponin I (0.000-0.034) ng/mL 09/13/24 09/13/24 09/13/24 Range/Units 07:28 07:28 11:35 WBC (3.8-10.6) k/uL RBC (4.30-5.90) m/uL Hgb (13.0-17.5) gm/dL Hct (39.0-53.0) % Neutrophils # (1.3-7.7) k/uL Lymphocytes # (1.0-4.8) k/uL PT 13.0 H (10.0-12.5) sec INR 1.2 H (<1.2) APTT 72.2 H (22.0-30.0) sec Carbon Dioxide 19 L (22-30) mmol/L BUN 26 H (9-20) mg/dL Glucose 185 H (74-99) mg/dL POC Glucose (mg/dL) 209 H (70-110) mg/dL Calcium 8.0 L (8.4-10.2) mg/dL Troponin I (0.000-0.034) ng/mL Microbiology - Last 24 Hours (Table) 09/10/24 06:30 Blood Culture - Preliminary Blood
[2024-09-13] MEDS: VERAPAMIL SYRINGE (5 MG/10 ML) INTRAARTER ONE (14:47)
[2024-09-13] MEDS: fentaNYL (PF) 50 MCG/1 ML VIAL IVP ONE (14:47)
[2024-09-13] MEDS: MIDAZOLAM 2 MG/2 ML VIAL IVP ONE (14:47)
[2024-09-13] MEDS: LIDOCAINE 1% INJ 10MG/ML (20 ML MDV) SQ ONE (14:47)
[2024-09-13] MEDS: SODIUM CHLORIDE 0.9% 1,000 ML IV ONE (14:51)
[2024-09-13] MEDS: HEPARIN SODIUM,PORCINE 10,000 UNIT in SODIUM CHLORIDE 0.9% 1,000 ML IRRIGATION PRN (14:51)
[2024-09-13] MEDS: HEPARIN SODIUM,PORCINE (1 ML) 2,500 UNIT in SODIUM CHLORIDE 0.9% 250 ML IRRIGATION PRN (14:52)
[2024-09-13] MEDS: HEPARIN SODIUM 1,000 UN/ML (10ML VL) IVP ONE (14:56)
[2024-09-13] MEDS: PHENYLEPHRINE-0.9% NACL SYG 1,000 MCG/10 ML SYRINGE IVP ONE ×3 (14:57→15:24)
[2024-09-13] MEDS: IOPAMIDOL-370 100ML BTL INJ ONE (15:10)
[2024-09-13 15:15] LABS: Glucose,Whole Blood 160 mg/dL (70-110)
[2024-09-13] MEDS: NALOXONE 0.4 MG/ML 1 ML VIAL IVP ONE (15:24)
[2024-09-13] MEDS ORDERED: RX INFO: IV CONTRAST WAS GIVEN 1 EACH MISC MISCELLANE PRN ×2 (15:25→15:48)
[2024-09-13] MEDS: FLUMAZENIL 0.1 MG/ML 5 ML VIAL IVP ONE (15:25)
--- NOTE | 2024-09-13 15:25 | P.PN ---
Subjective Progress Note Date: 09/13/24 Principal diagnosis: Reason for follow-up right first and second toe diabetic foot infection Patient is a 68-year-old male with a past medical history significant for diabetes mellitus osteoarthritis neuropathy patient did have a left big toe diabetic foot infection requiring left big toe amputation subsequently admitted to the hospital for evaluation of the right big and second toe discoloration mostly on the big toe concerning for diabetic foot infection prompted this consultation. On today's evaluation that is 09/13/2024, the patient continues to be afebrile, the patient is on 4 L current oxygen and is complaining of some shortness of breath today did have some chest pain yesterday and denies any cough or sputum production no abdominal pain or any worsening pain to the right big toe. Patient white count is 14.2 creatinine is 1.23 blood cultures are pending Objective - Vital Signs Vital signs: Vital Signs Temp 96.5 F L 09/13/24 08:00 Pulse 67 09/13/24 12:00 Resp 18 09/13/24 12:00 BP 157/57 09/13/24 12:00 Pulse Ox 99 09/13/24 12:00 FiO2 Intake & Output 09/12/24 09/13/24 09/13/24 18:59 06:59 18:59 Intake Total 360 191.787 Output Total 500 200 Balance -140 -200 191.787 Weight 108.862 kg 108.5 kg Intake: Intake, IV Titration 191.787 Amount Heparin Sod,Pork in 0.45% 191.787 NaCl 25,000 unit In 0.45 % NaCl 1 250ml.bag @ 9.2 UNITS/KG/HR 10.015 mls/hr IV .Q24H [facility] Rx#: [id number] Oral 360 Output: Urine 500 200 Uretheral ([place]) 500 Other: Voiding Method External Catheter Indwelling Catheter Indwelling Catheter # Bowel Movements 1 - Exam GENERAL DESCRIPTION: An elderly male lying in bed in no distress RESPIRATORY SYSTEM: Unlabored breathing , decreased breath sounds at bases HEART: S1 S2 regular rate and rhythm , ABDOMEN: Soft , no tenderness EXTREMITIES: Right big toe discoloration swelling no foul-smelling drainage - Labs CBC & Chem 7: 09/13/24 07:28 09/13/24 07:28 Labs: Abnormal Lab Results - Last 24 Hours (Table) 0109/12/24 09/12/24 Range/Units 14:17 16:52 16:52 WBC 12.3 H (3.8-10.6) k/uL RBC 3.98 L (4.30-5.90) m/uL Hgb 12.1 L (13.0-17.5) gm/dL Hct 38.1 L (39.0-53.0) % Neutrophils # 11.3 H (1.3-7.7) k/uL Lymphocytes # 0.2 L (1.0-4.8) k/uL PT (10.0-12.5) sec INR (<1.2) APTT (22.0-30.0) sec Carbon Dioxide (22-30) mmol/L BUN (9-20) mg/dL Glucose (74-99) mg/dL POC Glucose (mg/dL) (70-110) mg/dL Calcium (8.4-10.2) mg/dL Troponin I 0.045 H* 0.043 H* (0.000-0.034) ng/mL 09/12/24 09/12/24 09/12/24 Range/Units 16:52 17:05 20:04 WBC (3.8-10.6) k/uL RBC (4.30-5.90) m/uL Hgb (13.0-17.5) gm/dL Hct (39.0-53.0) % Neutrophils # (1.3-7.7) k/uL Lymphocytes # (1.0-4.8) k/uL PT (10.0-12.5) sec INR (<1.2) APTT (22.0-30.0) sec Carbon Dioxide 20 L (22-30) mmol/L BUN 22 H (9-20) mg/dL Glucose 214 H (74-99) mg/dL POC Glucose (mg/dL) 212 H 203 H (70-110) mg/dL Calcium (8.4-10.2) mg/dL Troponin I (0.000-0.034) ng/mL 09/12/24 09/13/24 09/13/24 Range/Units 21:28 06:23 07:28 WBC 14.2 H (3.8-10.6) k/uL RBC 3.59 L (4.30-5.90) m/uL Hgb 11.0 L (13.0-17.5) gm/dL Hct 34.3 L (39.0-53.0) % Neutrophils # 13.5 H (1.3-7.7) k/uL Lymphocytes # 0.3 L (1.0-4.8) k/uL PT (10.0-12.5) sec INR (<1.2) APTT 52.3 H (22.0-30.0) sec Carbon Dioxide (22-30) mmol/L BUN (9-20) mg/dL Glucose (74-99) mg/dL POC Glucose (mg/dL) 188 H (70-110) mg/dL Calcium (8.4-10.2) mg/dL Troponin I (0.000-0.034) ng/mL 09/13/24 09/13/24 09/13/24 Range/Units 07:28 07:28 11:35 WBC (3.8-10.6) k/uL RBC (4.30-5.90) m/uL Hgb (13.0-17.5) gm/dL Hct (39.0-53.0) % Neutrophils # (1.3-7.7) k/uL Lymphocytes # (1.0-4.8) k/uL PT 13.0 H (10.0-12.5) sec INR 1.2 H (<1.2) APTT 72.2 H (22.0-30.0) sec Carbon Dioxide 19 L (22-30) mmol/L BUN 26 H (9-20) mg/dL Glucose 185 H (74-99) mg/dL POC Glucose (mg/dL) 209 H (70-110) mg/dL Calcium 8.0 L (8.4-10.2) mg/dL Troponin I (0.000-0.034) ng/mL Microbiology - Last 24 Hours (Table) 09/10/24 06:30 Blood Culture - Preliminary Blood Assessment and Plan (1) Diabetic foot infection Current Visit: Yes Status: Acute Code(s): E11.628 - TYPE 2 DIABETES MELLITUS WITH OTHER SKIN COMPLICATIONS; L08.9 - LOCAL INFECTION OF THE SKIN AND SUBCUTANEOUS TISSUE, UNSP SNOMED Code(s): 639250084 (2) Diabetic foot ulcer Current Visit: Yes Status: Acute Code(s): E11.621 - TYPE 2 DIABETES MELLITUS WITH FOOT ULCER; L97.509 - NON-PRESSURE CHRONIC ULCER OTH PRT UNSP FOOT W UNSP SEVERITY SNOMED Code(s): 243481393 Plan: 1patient presented to hospital with discoloration to the right first and second toe in this patient who did have a previous history of left diabetic foot infection osteomyelitis requiring amputation of left big toe culture at that ti me was positive for MRSA and Finegoldia magna 2patient has been evaluated by vascular surgery and planning for amputation of the right first and second toe, per surgery has been put on hold because of patient developing chest pain currently being monitored by cardiology 3patient to continue with vancomycin pharmacy to dose and Unasyn and monitor clinical course closely Dictation was produced using Arigo dictation software. please excuse any grammatical, word or spelling errors. Time with Patient: Less than 30
[2024-09-13] MEDS ORDERED: NOREPINEPHRINE 4 MG in SODIUM CHLORIDE 0.9% 250 ML IV SCH (15:30)
--- NOTE | 2024-09-13 15:44 | P.CARDCATH ---
Description of Procedure: PROCEDURES PERFORMED: Left heart catheterization, bilateral coronary angiography, ultrasound guided arterial access INDICATION: NSTEMI, cardiomyopathy CONSENT:The risks, benefits and alternative therapies for the above-mentioned procedure and for both sedation/analgesia as well as necessary blood product administration, if indicated, as they pertain to this patient were discussed with the patient. The patient has indicated understanding and acceptance of the risks and procedures discussed. PROCEDURE: After the risks, benefits and alternatives of the above mentioned procedure explained in detail with the patient, informed consent was obtained. Patient was taken to the catheterization lab and prepped and draped in usual fa shion. Ultrasound guidance was used to assess for arterial access. 1% lidocaine was used to anesthetize the right radial artery. A 6-Tongan sheath was placed in the right radial artery using modified Seldinger technique and ultrasound guidance. Patient did have significant spasm of the right radial artery at the elbow. Left coronary angiography was performed with a 4-Tongan JL 3.5 catheter and right coronary angiography was performed with a 4-Tongan FR4 catheter in various views. A 4-Tongan FR4 catheter was inserted into the left ventricle and pressure measurements were obtained. The right radial sheath was removed and a TR band was placed with hemostasis achieved. The patient had hypotension requiring neosyneohrine and SOB and felt related to sedation and therefore Fentanyl and Versed were reversed. Patient was placed on a low dose or Norepinephrine and transferred to the ICU without any chest pain or SOB and A+O x 3. Conscious Sedation: Patient was monitored under the direct supervision of myself for conscious sedation using Versed and fentanyl for a total duration of [] minutes HEMODYNAMICS: Ao: 81/56 LV: 72/6, LVEDP 17 SELECTIVE CORONARY ARTERIOGRAPHY: LEFT MAIN: The left main is a large caliber vessel which bifurcates into the LAD and circumflex. There is no significant stenosis. LEFT ANTERIOR DESCENDING CORONARY ARTERY: LAD is a large caliber vessel which wraps around to the apex. There is proximal to mid LAD diffuse 50% stenosis with more focal 90% stenosis. Diagonal 1 and a small caliber with a proximal 80% stenosis. The mid to distal LAD has diffuse 20-30% stenosis. There are [id number] collaterals to the RCA. LEFT CIRCUMFLEX CORONARY ARTERY: Left circumflex is a moderate caliber vessel with a mid circumflex 100% stenosis just past a small caliber OM1 branch with a proximal OM1 90% stenosis. RIGHT CORONARY ARTERY: The right coronary artery is a large caliber vessel which gives off a PDA and PLV branch and is the dominant vessel. There is 99% mid RCA stenosis with a long lesion extending to the distal RCA just proximal to the bifurcation PDA and PLV. Otherwise there are diffuse 30-40% stenosis. FINAL IMPRESSION: 1. CAD as described above including 90% proximal mid LAD stenosis, diagonal one 80%, OM1 90%, mid circumflex 100%, 99% mid RCA stenosis 2. Elevated left sided filling pressures 3. Shock, likely related to light sedation and cardiac decompensation and improved with reversal of sedation and vasopressors PLAN: 1. Aggressive risk factor modification per most recent ACC/AHA guidelines. 2. Patient originally predominantly stable prior to catheterization and decompensation appears mainly cardiac decompensation related to sedation. Given multivessel CAD, contrast threshold, history of PAD with carotid disease and unsure of possible Impella access and patient is improved with reversal of sedation, would recommend attempt at stabilization and give at least 24-48 hrs for kidney wash out before consider attempted Impella protected PCI of LAD and RCA. Check repeat echo.
[2024-09-13] MEDS: NOREPINEPHRINE 4 MG in SODIUM CHLORIDE 0.9% 250 ML IV SCH (16:00)
[2024-09-13 16:16] LABS: Glucose,Whole Blood 164 mg/dL (70-110)
--- NOTE | 2024-09-13 16:45 | P.CNPUL ---
History of Present Illness Consult date: 09/13/24 Requesting physician: Greg Kahn Reason for consult: other (ICU management) Chief complaint: Right big toe infection with pain and swelling History of present illness: This is a 68-year-old white male, known history of type 2 diabetes, peripheral vessel occlusive disease secondary to diabetes, patient was admitted on 09/10/2014, presented to the ER with right toe infection. The right big toe has been getting increasingly painful, swollen, red and tender. 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 Seen in the ER, foot x-ray showed moderate to severe soft tissue swelling, patient was admitted with diabetic foot infection. Seen by infectious disease, placed on antibiotics, patient was also seen by vascular surgery and cardiology for elevated troponin. Patient underwent cardiac catheterization today, he was found to have 90% proximal mid LAD stenosis 80% diagonal 190% OM1 100% mid circumflex and 99% mid RCA. Patient was also noted to have slightly elevated left-sided filling pressures, patient was noted to be hypotensive in the [employer], placed on norepinephrine, admitted to the ICU because of hypotension and this consult was initiated. During my evaluation, patient had no shortness of breath, no cough, no wheezing, he had some vague chest discomfort. Patient is being considered for possible Impella protected PCI of LAD and RCA down the line, concerned about his renal status and contrast media. Labs on this patient today showed leukocytosis with WBC count of 14.2 hemoglobin is 11 electrolytes are normal BUN is 26 creatinine 1.23. Patient has been seen by infectious disease on the case, presently on Unasyn 3 g every 6 hours. Preliminary report on blood cultures since admission has been negative. Pulmonary trejo, patient has been a smoker over the years, he had at least a [id number] smoking history since age 13. Has not been on any inhalers and has not been diagnosed with COPD. Review of Systems REVIEW OF SYSTEMS: CONSTITUTIONAL: Negative. EYES: Negative. ENT: Negative. CARDIAC: As noted in HPI PULMONARY: Negative no cough no wheezing no shortness of breath no chest pain GI: Negative. GENITOURINARY: Negative. MUSCULOSKELETAL: Negative. SKIN: Chronic big toe infection and previous history of left big toe amputation NEUROPSYCH: Negative. ENDOCRINE: History of diabetes HEMATOLOGIC: Negative. 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, NEEDLE ASPIRATION LEFT EYE Q 3 MONTHS, PAIN CLINIC Past Anesthesia/Blood Transfusion Reactions: No Reported Reaction Past Psychological History: Anxiety Smoking Status: Current every day smoker Past Alcohol Use History: None Reported Past Drug Use History: None Reported - Past Family History Mother Family Medical History: Cancer Additional Family Medical History / Comment(s): BREAST Sister(s) Family Medical History: Cancer Medications and Allergies Home Medications Medication Instructions Recorded Confirmed Type Albuterol Inhaler [Ventolin Hfa 3 puff INHALATION RT-QID PRN 05/21/24 09/10/24 History Inhaler] Tamsulosin [Flomax] 0.4 mg PO HS 06/13/24 09/10/24 History Furosemide [Lasix] 20 mg PO DAILY #14 tab 06/18/24 09/10/24 Rx Spironolactone [Aldactone] 25 mg PO DAILY #7 tablet 06/19/24 09/10/24 Rx Acetaminophen 500 - 1,000 mg PO Q8H PRN 09/10/24 09/10/24 History Haloperidol Oral Soln [Haldol Oral 2 - 4 mg PO Q4H PRN 09/10/24 09/10/24 History Soln] Insulin Glargine [Lantus Vial] 20 unit SQ HS 09/10/24 09/10/24 History LORazepam [Ativan] 0.5 - 1 mg PO Q12H PRN 09/10/24 09/10/24 History Nystatin 100,000 Unit/gm Powd 1 applic TOPICAL TID 09/10/24 09/10/24 History [Mycostatin Powder] Prochlorperazine Suppository 25 mg RECTAL Q8H PRN 09/10/24 09/10/24 History [Compazine] Sennosides/Docusate Sodium [Senna 1 tab PO BID PRN 09/10/24 09/10/24 History Plus 8.6-50 mg Tablet] Allergies Allergy/AdvReac Type Severity Reaction Status Date / Time No Known Allergies Allergy Verified 09/10/24 11:29 Physical Exam Vitals: Vital Signs Temp Pulse Pulse Resp BP Pulse Ox 09/13/24 14:00 67 18 09/13/24 12:00 67 18 157/57 99 09/13/24 08:00 96.5 F L 71 18 90/55 98 09/13/24 04:00 95.9 F L 73 18 91/58 98 09/13/24 02:06 102/65 09/13/24 00:04 67 09/13/24 00:00 94.9 F L 69 19 97/64 99 09/12/24 23:54 68 09/12/24 21:00 95.6 F L 81 19 125/64 96 09/12/24 19:55 87 19 121/75 98 09/12/24 16:45 94.4 F L 81 18 108/63 99 Intake and Output 09/13/24 09/13/24 09/13/24 06:59 14:59 22:59 Intake Total 271.787 Output Total 200 300 Balance -200 -28.213 Intake: IV 80 Intake, IV Titration 191.787 Amount Heparin Sod,Pork in 0.45% 191.787 NaCl 25,000 unit In 0.45 % NaCl 1 250ml.bag @ 9.2 UNITS/KG/HR 10.015 mls/hr IV .Q24H [facility] Rx#: [id number] Output: Urine 200 300 Other: Voiding Method Indwelling Catheter Indwelling Catheter # Bowel Movements 1 Weight 108.5 kg 68-year-old male in no distress, on 4 L nasal cannula with O2 sats of 99% Head: Normocephalic. Atraumatic Eyes: Sclerae nonicteric. PERRLA, EOMI, nonicteric. Neck: Supple no neck masses no JVD no stridor Lungs: Diminished breath sound bilaterally no crackles rhonchi or wheezes Heart: Regular rate and rhythm, S1-S2, no S3, no rub. 2/6 systolic murmur throughout the precordium Abdomen: Soft nontender, positive bowel sounds no organomegaly. Extremities: 2+ bipedal edema, gangrenous changes noted in the right big toe patient had an amputation on the left side/left big toe. Neurologic: Alert oriented x 3 no gross focal deficit. Psychiatric: Normal mood affect and normal status examination. Results - Laboratory Findings CBC and BMP: 09/13/24 07:28 09/13/24 07:28 PT/INR, D-dimer PT 13.0 sec (10.0-12.5) H 09/13/24 07:28 INR 1.2 (<1.2) H 09/13/24 07:28 Abnormal lab findings: Abnormal Labs 09/10/24 09/10/24 09/10/24 06:30 06:30 18:00 WBC 15.4 H RBC 3.85 L Hgb 11.7 L Hct 36.0 L MCHC RDW Immature Gran # Neutrophils # 13.8 H Lymphocytes # 0.8 L Monocytes # Eosinophils # PT INR APTT Sodium 136 L Carbon Dioxide BUN 23 H Glucose 196 H POC Glucose (mg/dL) 196 H Hemoglobin A1c Calcium Alkaline Phosphatase 221 H Troponin I C-Reactive Protein 8.2 H 09/10/24 09/11/24 09/11/24 20:30 06:07 06:07 WBC 21.09 H RBC 3.78 L Hgb 11.1 L Hct 36.6 L MCHC 30.3 L RDW 14.6 H Immature Gran # 0.15 H Neutrophils # 19.20 H Lymphocytes # 0.57 L Monocytes # 1.12 H Eosinophils # 0.01 L PT INR APTT Sodium Carbon Dioxide BUN Glucose POC Glucose (mg/dL) 205 H Hemoglobin A1c 8.1 H Calcium Alkaline Phosphatase Troponin I C-Reactive Protein 09/11/24 09/11/24 09/12/24 08:12 12:11 05:59 WBC RBC Hgb Hct MCHC RDW Immature Gran # Neutrophils # Lymphocytes # Monocytes # Eosinophils # PT INR APTT Sodium Carbon Dioxide BUN 22 H Glucose 71 L POC Glucose (mg/dL) 118 H 174 H Hemoglobin A1c Calcium Alkaline Phosphatase Troponin I C-Reactive Protein 09/12/24 09/12/24 09/12/24 06:21 06:21 12:04 WBC 10.7 H RBC 3.62 L Hgb 11.1 L Hct 34.3 L MCHC RDW Immature Gran # Neutrophils # Lymphocytes # Monocytes # Eosinophils # PT INR APTT Sodium Carbon Dioxide 20 L BUN 21 H Glucose 134 H POC Glucose (mg/dL) 136 H Hemoglobin A1c Calcium Alkaline Phosphatase Troponin I C-Reactive Protein 09/12/24 09/12/24 09/12/24 14:17 16:52 16:52 WBC 12.3 H RBC 3.98 L Hgb 12.1 L Hct 38.1 L MCHC RDW Immature Gran # Neutrophils # 11.3 H Lymphocytes # 0.2 L Monocytes # Eosinophils # PT INR APTT Sodium Carbon Dioxide BUN Glucose POC Glucose (mg/dL) Hemoglobin A1c Calcium Alkaline Phosphatase Troponin I 0.045 H* 0.043 H* C-Reactive Protein 09/12/24 09/12/24 09/12/24 16:52 17:05 20:04 WBC RBC Hgb Hct MCHC RDW Immature Gran # Neutrophils # Lymphocytes # Monocytes # Eosinophils # PT INR APTT Sodium Carbon Dioxide 20 L BUN 22 H Glucose 214 H POC Glucose (mg/dL) 212 H 203 H Hemoglobin A1c Calcium Alkaline Phosphatase Troponin I C-Reactive Protein 09/12/24 09/13/24 09/13/24 21:28 06:23 07:28 WBC 14.2 H RBC 3.59 L Hgb 11.0 L Hct 34.3 L MCHC RDW Immature Gran # Neutrophils # 13.5 H Lymphocytes # 0.3 L Monocytes # Eosinophils # PT INR APTT 52.3 H Sodium Carbon Dioxide BUN Glucose POC Glucose (mg/dL) 188 H Hemoglobin A1c Calcium Alkaline Phosphatase Troponin I C-Reactive Protein 09/13/24 09/13/24 09/13/24 07:28 07:28 11:35 WBC RBC Hgb Hct MCHC RDW Immature Gran # Neutrophils # Lymphocytes # Monocytes # Eosinophils # PT 13.0 H INR 1.2 H APTT 72.2 H Sodium Carbon Dioxide 19 L BUN 26 H Glucose 185 H POC Glucose (mg/dL) 209 H Hemoglobin A1c Calcium 8.0 L Alkaline Phosphatase Troponin I C-Reactive Protein 09/13/24 09/13/24 15:12 16:04 WBC RBC Hgb Hct MCHC RDW Immature Gran # Neutrophils # Lymphocytes # Monocytes # Eosinophils # PT INR APTT Sodium Carbon Dioxide BUN Glucose POC Glucose (mg/dL) 160 H 164 H Hemoglobin A1c Calcium Alkaline Phosphatase Troponin I C-Reactive Protein - Diagnostic Findings Chest x-ray: image reviewed (Chest x-ray showed bibasilar atelectasis and small pleural effusions, suspect some component of congestive heart failure) Additional studies: Venous Doppler of both lower extremities came back negative for DVT Assessment and Plan Assessment: Impression: Gangrenous right big toe Acute non-ST elevation myocardial infarction Severe coronary artery disease as noted on cardiac catheterization Severe ischemic cardiomyopathy Tobacco dependence syndrome, suspect some component of COPD Peripheral vessel occlusive disease with diabetic foot infections Dyslipidemia Hypotension most likely secondary to ischemic cardiomyopathy and LV dysfunction although sepsis is a consideration, doubt septic shock. Recommendation: Continue to monitor in the ICU Continue to monitor blood pressure and continue norepinephrine, titrate accordingly Continue Unasyn Gentle diuresis Continue heparin as per cardiology Continue insulin as per sliding scale coverage Continue beta-blockers Continue aspirin Will continue to follow in ICU. Prognosis is guarded. Time with Patient: Greater than 30
[2024-09-13] MEDS: SODIUM CHLORIDE 0.9% 500 ML 500 ML IV ONE ×2 (19:17→23:06)
[2024-09-13 21:52] LABS: Glucose,Whole Blood 194 mg/dL (70-110)
[2024-09-14 04:10] LABS: Basophils % (A) 0 %; Eosinophils % (A) 0 %; HCT 34.9 % (39.0-53.0); HGB 10.9 gm/dL (13.0-17.5); Hypochromasia Moderate; Lymphocytes # (A) 0.7 k/uL (1.0-4.8); Lymphocytes % (A) 4 %; MCH 30.1 pg (25.0-35.0); MCHC 31.2 g/dL (31.0-37.0); MCV 96.3 fL (80.0-100.0); Mean Platelet Volume 9.3; Monocytes % (A) 6 %; Neutrophils # (A) 14.9 k/uL (1.3-7.7); Neutrophils % (A) 89 %; Platelet Count 202 k/uL (150-450); RBC 3.63 m/uL (4.30-5.90); RDW 14.7 % (11.5-15.5); WBC 16.9 k/uL (3.8-10.6)
[2024-09-14 04:35] LABS: African American GFR (CKD) 50 (>60 ml/min/1.73 sqM); Anion Gap 12 mmol/L; Blood Urea Nitrogen 30 mg/dL (9-20); Calcium 7.8 mg/dL (8.4-10.2); Carbon Dioxide 17 mmol/L (22-30); Chloride 109 mmol/L (98-107); Glucose 177 mg/dL (74-99); Non-African American GFR(CKD) 43 (>60 ml/min/1.73 sqM); Sodium 138 mmol/L (137-145)
[2024-09-14 06:15] LABS: Glucose,Whole Blood 197 mg/dL (70-110)
[2024-09-14] MEDS ORDERED: HEPARIN SODIUM,PORCINE 5,000 UNIT/ML 1 ML VIAL SQ SCH (09:00)
--- NOTE | 2024-09-14 09:54 | P.NPCON ---
History of Present Illness - Reason for Consult acute renal failure - History of Present Illness Reason for consultation: Acute kidney injury History of present illness: Patient is a 68-year-old male seen in renal consultation for acute kidney injury. Creatinine on admission was 0.97 and is up to 1.62 today. Patient came to the hospital on September 10, 2024 due to right toe infection. Patient has history of prior amputation in the left foot. Patient states he was having pain and redness and has been maintained on antibiotics. Patient subsequently developed chest pain and was diagnosed with non-ST related myocardial infarction. He underwent cardiac catheterization yesterday which showed triple- vessel disease. Urine output overnight was about 50 cc. Blood pressure stable. After cardiac catheterization patient became quite hypotensive and received IV fluids. He is currently on normal saline at 75 cc an hour. Does have edema in the lower extremities. Patient does have history of diabetes. Denies regular use of nonsteroidals. Vital signs are stable. General: No acute distress. HEENT: Head exam is unremarkable. LUNGS: No audible rhonchi or wheezes. HEART: Rate and Rhythm are regular. ABDOMEN: Nontender. EXTREMITITES: 2+ edema. 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, NEEDLE ASPIRATION LEFT EYE Q 3 MONTHS, PAIN CLINIC Past Anesthesia/Blood Transfusion Reactions: No Reported Reaction Past Psychological History: Anxiety Smoking Status: Current every day smoker Past Alcohol Use History: None Reported Past Drug Use History: None Reported - Past Family History Mother Family Medical History: Cancer Additional Family Medical History / Comment(s): BREAST Sister(s) Family Medical History: Cancer Medications and Allergies Home Medications Medication Instructions Recorded Confirmed Type Albuterol Inhaler [Ventolin Hfa 3 puff INHALATION RT-QID PRN 05/21/24 09/10/24 History Inhaler] Tamsulosin [Flomax] 0.4 mg PO HS 06/13/24 09/10/24 History Furosemide [Lasix] 20 mg PO DAILY #14 tab 06/18/24 09/10/24 Rx Spironolactone [Aldactone] 25 mg PO DAILY #7 tablet 06/19/24 09/10/24 Rx Acetaminophen 500 - 1,000 mg PO Q8H PRN 09/10/24 09/10/24 History Haloperidol Oral Soln [Haldol Oral 2 - 4 mg PO Q4H PRN 09/10/24 09/10/24 History Soln] Insulin Glargine [Lantus Vial] 20 unit SQ HS 09/10/24 09/10/24 History LORazepam [Ativan] 0.5 - 1 mg PO Q12H PRN 09/10/24 09/10/24 History Nystatin 100,000 Unit/gm Powd 1 applic TOPICAL TID 09/10/24 09/10/24 History [Mycostatin Powder] Prochlorperazine Suppository 25 mg RECTAL Q8H PRN 09/10/24 09/10/24 History [Compazine] Sennosides/Docusate Sodium [Senna 1 tab PO BID PRN 09/10/24 09/10/24 History Plus 8.6-50 mg Tablet] Allergies Allergy/AdvReac Type Severity Reaction Status Date / Time No Known Allergies Allergy Verified 09/10/24 11:29 Physical Exam Vitals: Vital Signs Temp Pulse Pulse Resp BP BP Pulse Ox 09/14/24 09:00 77 31 H 117/74 94 L 09/14/24 08:00 97.5 F L 79 36 H 117/66 94 L 09/14/24 07:00 78 26 H 114/68 94 L 09/14/24 06:00 75 28 H 109/62 94 L 09/14/24 05:00 74 24 103/74 93 L 09/14/24 04:00 73 29 H 118/74 94 L 09/14/24 03:00 77 30 H 110/73 92 L 09/14/24 02:15 76 22 107/65 96 09/14/24 02:00 75 103/78 96 09/14/24 01:45 77 103/78 94 L 09/14/24 01:30 77 124/70 96 09/14/24 01:15 77 124/70 91 L 09/14/24 01:00 77 21 110/72 89 L 09/14/24 00:45 79 110/72 90 L 09/14/24 00:30 79 17 112/67 95 09/14/24 00:15 79 12 95 09/14/24 00:00 96.8 F L 77 110/71 94 L 09/13/24 23:45 79 110/71 94 L 09/13/24 23:30 79 22 106/69 98 09/13/24 23:15 74 106/65 95 09/13/24 23:00 75 103/66 95 09/13/24 22:45 75 100/67 94 L 09/13/24 22:30 75 109/46 94 L 09/13/24 22:15 76 20 112/68 94 L 09/13/24 22:00 74 14 105/63 92 L 09/13/24 21:45 73 31 H 116/66 93 L 09/13/24 21:30 77 29 H 113/72 93 L 09/13/24 21:15 79 12 118/78 94 L 09/13/24 21:00 82 09/13/24 20:45 81 24 96 09/13/24 20:30 72 29 H 79/43 97 09/13/24 20:15 75 17 73/47 96 09/13/24 20:00 96.6 F L 71 28 H 90/48 93 L 09/13/24 19:20 78 26 H 96 09/13/24 19:15 75 24 108/92 96 09/13/24 19:10 76 24 108/92 97 09/13/24 19:05 77 24 101/41 97 09/13/24 19:00 79 24 111/91 97 09/13/24 18:55 74 22 95/80 95 09/13/24 18:50 72 22 150/102 97 09/13/24 18:45 96.8 F L 72 32 H 103/77 96 09/13/24 18:40 71 33 H 90/55 93 L 09/13/24 18:35 69 27 H 86/56 83 L 09/13/24 18:30 68 23 78/41 09/13/24 18:25 70 9 L 90/63 09/13/24 18:20 69 15 118/61 88 L 09/13/24 18:15 70 19 105/76 92 L 09/13/24 18:10 73 32 H 100/60 91 L 09/13/24 18:05 67 27 H 102/61 92 L 09/13/24 18:00 69 29 H 101/56 92 L 09/13/24 17:55 67 29 H 110/67 93 L 09/13/24 17:50 72 27 H 101/64 95 09/13/24 17:45 71 11 L 95/61 91 L 09/13/24 17:40 73 28 H 101/51 95 09/13/24 17:35 65 28 H 104/60 95 09/13/24 17:30 65 27 H 106/56 95 09/13/24 17:25 70 27 H 92/69 93 L 09/13/24 17:20 77 20 107/48 93 L 09/13/24 17:15 72 27 H 110/63 94 L 09/13/24 17:10 73 22 105/69 93 L 09/13/24 17:05 72 26 H 110/77 93 L 09/13/24 17:00 68 20 93/38 93 L 09/13/24 16:55 24 90/43 92 L 09/13/24 16:50 95.8 F L 67 16 104/49 92 L 09/13/24 16:45 21 93 L 09/13/24 16:42 19 93 L 09/13/24 14:00 67 18 09/13/24 12:00 67 18 157/57 99 Intake and Output 09/13/24 09/14/24 09/14/24 22:59 06:59 14:59 Intake Total 4783.461 2520 500 Output Total 75 30 80 Balance 695.583 9479 420 Intake: IV 275 1700 300 Ampicillin-Sulbactam 3 gm 100 100 In Sodium Chloride 0.9% 100 ml @ 200 mls/hr IVPB Q6HR [facility] Rx#:[id number] Sodium Chloride 0.9% 1, 50 000 ml @ 50 mls/hr IV . Q20H [facility] Rx#:[id number] Sodium Chloride 0.9% 1, 225 600 200 000 ml @ 75 mls/hr IV . [id number] [facility] Rx#:[id number] Sodium Chloride 0.9% 500 500 ml 500 ml @ 999 mls/hr IV .Q31M [facility] Rx#:[id number] Vancomycin 1,750 mg In 500 Sodium Chloride 0.9% 500 ml 500 ml @ 167 mls/hr IVPB Q24H [facility] Rx#: [id number] Intake, IV Titration 759.818 Amount Heparin Sod,Pork in 0.45% 58.213 NaCl 25,000 unit In 0.45 % NaCl 1 250ml.bag @ 9.2 UNITS/KG/HR 10.015 mls/hr IV .Q24H [facility] Rx#: [id number] Norepinephrine 4 mg In 51.605 Sodium Chloride 0.9% 250 ml @ 0.03 MCG/KG/MIN 12. 402 mls/hr IV .[id number] [facility] Rx#:[id number] Sodium Chloride 0.9% 1, 150 000 ml @ 75 mls/hr IV . [id number] [facility] Rx#:[id number] Sodium Chloride 0.9% 500 500 ml 500 ml @ 999 mls/hr IV .Q31M [facility] Rx#:[id number] Oral 200 Output: Urine 75 30 80 Other: Voiding Method Indwelling Catheter Indwelling Catheter Weight 109.3 kg Results - Lab Results Most recent lab results Calcium 7.8 mg/dL (8.4-10.2) L 09/14/24 03:02 Magnesium 2.1 mg/dL (1.6-2.3) 09/11/24 08:12 09/14/24 03:02 09/14/24 03:02 Assessment and Plan Plan: Assessment: 1. Acute kidney injury secondary to ATN secondary to hypotension and contrast associated acute kidney injury. Baseline creatinine near 1 and is 1.62 today. Oliguric. 2. Right foot toe infection on antibiotics. 3. NSTEMI status post cardiac catheterization on September 13, 2024 which showed triple-vessel disease. 4. Diabetes mellitus. 5. Septic shock, now off Levophed. 6. Metabolic acidosis secondary to acute kidney injury and IV fluids. 7. Volume overload. Plan: Decrease rate of normal saline. Lasix 60 mg IV once today. 2 amp sodium bicarb IV push today. Check renal ultrasound. Avoid nephrotoxins. Continue to monitor renal function and urine output. Continue to assess daily for need for renal placement therapy. Follow-up echocardiogram. Thank you for the consultation. I will continue to follow the patient with you during his hospital stay.
[2024-09-14] MEDS: FUROSEMIDE 10 MG/ML 10 ML VIAL IV STA (10:04)
[2024-09-14] MEDS: SODIUM BICARB 8.4% 50 ML SYR (1 MEQ/ML) IV STA (10:08)
[2024-09-14] MEDS: SODIUM CHLORIDE 0.9% 1,000 ML IV SCH (10:09)
--- NOTE | 2024-09-14 10:48 | P.PN ---
Subjective Progress Note Date: 09/14/24 68 year old M with PMH of DM with neuropathy, BPH presented to the ED for right foot that has been getting increasingly painful, swollen, red, tender. In the ED he underwent extensive evaluation. BP 117/69, HR 103, T 98.1F, RR 20, 95% on RA. CBC, Coag panel, CMP significant for WBC 15.4, RBC 3.85, Hg 11.7, Hct 36, Na 136, BUN 23, glu 196, alk phos 22.1. Lactic acid 1.4. Mag 2.1. CRP 8.2. A1c 8.1. Foot XR showed moderate to severe diffuse soft tissue swelling with persistent linear 6 mm soft tissue foreign body at the level of 2nd proximal phalanx. Patient was started on Vancomycin and Zosyn and admitted for further workup and management. ID consulted recommended Vascular Sx consult. Antibiotics switched to Vancomycin and Unasyn by ID. Vascular Sx recommended amputation of the right big toe which was initially scheduled for 09/12. Patient reports shortness of breath on 09/11, CXR showed cardiomegaly and pulmonary vascular congestion for which he was started on Lasix IV. He developed chest pain on 09/12, Troponin 0.045, 0.043, started on Heparin drip and Cardiology consulted. He underwent cardiac cath on 09/13 which showed 90% proximal mid LAD stenosis, diagonal one 80%, OM1 90%, mid circumflex 100%, 99% mid RCA stenosis. He was hypotensive during the procedure which resulted in transfer to ICU on Levophed. 09/14 Patient was seen and examined. Transferred to ICU after cardiac cath for hypotension. Started on Levophed, weaned off last night. Urine output low, Nephrology consulted recommending renal US, decrease rate of IVF, Lasix 60 mg IV x 1 and 2 amps sodium bicarb. CBC, BMP significant for WBC 16.9, RBC 3.63, Hg 10.9, Hct 34.9, Cl 109, bicarb 17, BUN 30, Cr 1.62, glu 177, Ca 7.8. Mag 1.8. Venous duplex negative for DVT. Antibiotics include Vancomycin and Unasyn. General: non toxic, no distress, appears at stated age Derm: warm, dry Head: atraumatic, normocephalic, symmetric Eyes: EOMI, no lid lag, anicteric sclera Mouth: no lip lesion, mucus membranes moist Cardiovascular: S1S2 reg, no murmur Lungs: Crackles at the bases bilateral, no rhonchi, no rales , no accessory musc le use Ext: no gross muscle atrophy, 2+ pitting LE edema, no contractures Neuro: no focal neuro deficits Psych: Alert, oriented, appropriate affect Based on my assessment of this patient, this patient meets a high complexity level of care. Shock secondary to sedation used during cardiac cath versus cardiogenic: Levophed weaned off. Repeat Echo is pending. Cardiology on board. SKYLA on CKD with metabolic acidosis: Likely secondary to hypotension and contrast used during cardiac cath. Monitor daily renal function. NS at 50 cc/hr. Lasix 60 mg IV x 1 and 2 amps sodium bicarb per Nephrology. Renal US ordered. Nephrology on board. NSTEMI: ASA 81 mg PO QD. Lipitor 40 mg PO QD. Metoprolol 25 mg PO BID. Cardiac cath as above. Venous duplex negative. Telemetry monitoring. Cardiology on board. Acute hypoxic respiratory failure secondary to systolic CHF exacerbation: Echo 06/20 shows EF 35-40%. Lasix 40 mg IV x 1 on 09/11. Lasix 60 mg IV x 1 today per Nephrology. Continue Aldactone 25 mg PO QD. Metoprolol as above. Ideally should be on Farxiga and ACEi which he was on during his previous hospitalization and discharge. Strict intake and outtake. Daily weights. Monitor renal function and electrolytes while on Lasix IV + Vancomycin. Sepsis secondary to cellulitis versus osteomyelitis of the right great toe: Continue Vancomycin and Unasyn. ID and Vascular on board. Discussed with Dr. Grady, plans for amputation of the right big toe when cleared by Cardiology. Diabetes type 2 with diabetic neuropathy: Continue ISS + Accuchecks ACHS with hypoglycemic precautions. BPH: Flomax 0.4 mg PO QHS. CODE STATUS: FULL CODE DVT Prophylaxis: Heparin SQ GI Prophylaxis: Designated medical POA if patient is not able to make medical decisions for themselves: Son. I have reviewed the following senior energy consultant notes: Nephrology. I have reviewed the results of the following tests: CBC, BMP, Mag, Venous du plex. I have ordered the following tests: CBC and BMP in the AM. I have discussed the care of this patient with the following independent historian: SONYA. I have independently interpreted the following test below: I have discussed the management of this patient with the following physician: Dr. Grady Objective - Vital Signs Vital signs: Vital Signs Temp 96.8 F L 09/14/24 00:00 Pulse 78 09/14/24 07:00 Resp 26 H 09/14/24 07:00 BP 114/68 09/14/24 07:00 Pulse Ox 94 L 09/14/24 07:00 FiO2 Intake & Output 09/13/24 09/14/24 09/14/24 18:59 06:59 18:59 Intake Total 225.952 3486.374 175 Output Total 350 55 10 Balance 93.018 2450.374 165 Weight 109.3 kg Intake: IV 130 1925 175 Ampicillin-Sulbactam 3 gm 100 100 In Sodium Chloride 0.9% 100 ml @ 200 mls/hr IVPB Q6HR [facility] Rx#:[id number] Sodium Chloride 0.9% 1, 50 000 ml @ 50 mls/hr IV . Q20H [facility] Rx#:[id number] Sodium Chloride 0.9% 1, 825 75 000 ml @ 75 mls/hr IV . [id number] [facility] Rx#:[id number] Sodium Chloride 0.9% 500 500 ml 500 ml @ 999 mls/hr IV .Q31M [facility] Rx#:[id number] Vancomycin 1,750 mg In 500 Sodium Chloride 0.9% 500 ml 500 ml @ 167 mls/hr IVPB Q24H [facility] Rx#: [id number] Intake, IV Titration 313.018 580.374 Amount Heparin Sod,Pork in 0.45% 191.787 NaCl 25,000 unit In 0.45 % NaCl 1 250ml.bag @ 9.2 UNITS/KG/HR 10.015 mls/hr IV .Q24H [facility] Rx#: [id number] Norepinephrine 4 mg In 46.231 5.374 Sodium Chloride 0.9% 250 ml @ 0.03 MCG/KG/MIN 12. 402 mls/hr IV .[id number] [facility] Rx#:[id number] Sodium Chloride 0.9% 1, 75 75 000 ml @ 75 mls/hr IV . [id number] [facility] Rx#:[id number] Sodium Chloride 0.9% 500 500 ml 500 ml @ 999 mls/hr IV .Q31M [facility] Rx#:[id number] Output: Urine 350 55 10 Other: Voiding Method Indwelling Catheter Indwelling Catheter - Labs CBC & Chem 7: 09/14/24 03:02 09/14/24 03:02 Labs: Abnormal Lab Results - Last 24 Hours (Table) 09/13/24 09/13/24 09/13/24 Range/Units 07:28 07:28 11:35 WBC (3.8-10.6) k/uL RBC (4.30-5.90) m/uL Hgb (13.0-17.5) gm/dL Hct (39.0-53.0) % Neutrophils # (1.3-7.7) k/uL Lymphocytes # (1.0-4.8) k/uL PT 13.0 H (10.0-12.5) sec INR 1.2 H (<1.2) APTT 72.2 H (22.0-30.0) sec Chloride (98-107) mmol/L Carbon Dioxide 19 L (22-30) mmol/L BUN 26 H (9-20) mg/dL Creatinine (0.66-1.25) mg/dL Glucose 185 H (74-99) mg/dL POC Glucose (mg/dL) 209 H (70-110) mg/dL Calcium 8.0 L (8.4-10.2) mg/dL Troponin I (0.000-0.034) ng/mL 09/13/24 09/13/24 09/13/24 Range/Units 15:12 16:04 16:40 WBC (3.8-10.6) k/uL RBC (4.30-5.90) m/uL Hgb (13.0-17.5) gm/dL Hct (39.0-53.0) % Neutrophils # (1.3-7.7) k/uL Lymphocytes # (1.0-4.8) k/uL PT (10.0-12.5) sec INR (<1.2) APTT (22.0-30.0) sec Chloride (98-107) mmol/L Carbon Dioxide (22-30) mmol/L BUN (9-20) mg/dL Creatinine (0.66-1.25) mg/dL Glucose (74-99) mg/dL POC Glucose (mg/dL) 160 H 164 H (70-110) mg/dL Calcium (8.4-10.2) mg/dL Troponin I 0.044 H* (0.000-0.034) ng/mL 09/13/24 09/14/24 09/14/24 Range/Units 21:51 03:02 03:02 WBC 16.9 H (3.8-10.6) k/uL RBC 3.63 L (4.30-5.90) m/uL Hgb 10.9 L (13.0-17.5) gm/dL Hct 34.9 L (39.0-53.0) % Neutrophils # 14.9 H (1.3-7.7) k/uL Lymphocytes # 0.7 L (1.0-4.8) k/uL PT (10.0-12.5) sec INR (<1.2) APTT (22.0-30.0) sec Chloride 109 H (98-107) mmol/L Carbon Dioxide 17 L (22-30) mmol/L BUN 30 H (9-20) mg/dL Creatinine 1.62 H (0.66-1.25) mg/dL Glucose 177 H (74-99) mg/dL POC Glucose (mg/dL) 194 H (70-110) mg/dL Calcium 7.8 L (8.4-10.2) mg/dL Troponin I (0.000-0.034) ng/mL 09/14/24 Range/Units 06:14 WBC (3.8-10.6) k/uL RBC (4.30-5.90) m/uL Hgb (13.0-17.5) gm/dL Hct (39.0-53.0) % Neutrophils # (1.3-7.7) k/uL Lymphocytes # (1.0-4.8) k/uL PT (10.0-12.5) sec INR (<1.2) APTT (22.0-30.0) sec Chloride (98-107) mmol/L Carbon Dioxide (22-30) mmol/L BUN (9-20) mg/dL Creatinine (0.66-1.25) mg/dL Glucose (74-99) mg/dL POC Glucose (mg/dL) 197 H (70-110) mg/dL Calcium (8.4-10.2) mg/dL Troponin I (0.000-0.034) ng/mL Microbiology - Last 24 Hours (Table) 09/10/24 06:30 Blood Culture - Preliminary Blood
[2024-09-14] MEDS: ALPRAZolam 0.25 MG TAB PO PRN (11:06)
[2024-09-14 11:16] LABS: Glucose,Whole Blood 169 mg/dL (70-110)
--- NOTE | 2024-09-14 11:35 | P.PN ---
Subjective Progress Note Date: 09/14/24 Principal diagnosis: Gangrenous right big toe This is a 68-year-old white male, known history of type 2 diabetes, peripheral vessel occlusive disease secondary to diabetes, patient was admitted on 09/10/2014, presented to the ER with right toe infection. The right big toe has been getting increasingly painful, swollen, red and tender. 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 Seen in the ER, foot x-ray showed moderate to severe soft tissue swelling, patient was admitted with diabetic foot infection. Seen by infectious disease, placed on antibiotics, patient was also seen by vascular surgery and cardiology for elevated troponin. Patient underwent cardiac catheterization today, he was found to have 90% proximal mid LAD stenosis 80% diagonal 190% OM1 100% mid circumflex and 99% mid RCA. Patient was also noted to have slightly elevated left-sided filling pressures, patient was noted to be hypotensive in the Census [employer], placed on norepinephrine, admitted to the ICU because of hypotension and this consult was initiated. During my evaluation, patient had no shortness of breath, no cough, no wheezing, he had some vague chest discomfort. Patient is being considered for possible Impella protected PCI of LAD and RCA down the line, concerned about his renal status and contrast media. Labs on this patient today showed leukocytosis with WBC count of 14.2 hemoglobin is 11 electrolytes are normal BUN is 26 creatinine 1.23. Patient has been seen by infectious disease on the case, presently on Unasyn 3 g every 6 hours. Preliminary report on blood cultures since admission has been negative. Pulmonary trejo, patient has been a smoker over the years, he had at least a [id number] smoking history since age 13. Has not been on any inhalers and has not been diagnosed with COPD. Patient was seen today on 09/14/2023, remains in the ICU, patient has been seen by many consultants including cardiology, infectious disease, nephrology, patient is developing worsening renal failure picture, seen by nephrology, recommended Lasix, and bicarb. Patient is on Unasyn for his big toe infection. Patient has leukocytosis with WBC of 16.9 hemoglobin 10.9 bicarb is 17 BUN is 30 creatinine is up to 1.62. Patient is off norepinephrine, not requiring any pressors, he had norepinephrine last night shortly after he came back from the cardiac catheterization and he is now hemodynamically stable off norepinephrine. Pulmonary trejo no cough no wheezing no shortness of breath his acute kidney injury felt to be related to hypotension and contrast media his initial present ation was a presentation of non-ST elevation myocardial infarction and he was found to have significant triple-vessel coronary artery disease. Chest x-ray did not show evidence of fluid overload patient did receive Lasix and he remains on Lasix as recommended by nephrology. Objective - Vital Signs Vital signs: Vital Signs Temp 97.5 F L 09/14/24 08:00 Pulse 68 09/14/24 11:00 Resp 29 H 09/14/24 11:00 BP 105/60 09/14/24 11:00 Pulse Ox 98 09/14/24 11:00 FiO2 Intake & Output 09/13/24 09/14/24 09/14/24 18:59 06:59 18:59 Intake Total 945.536 9084.587 600 Output Total 350 55 95 Balance 93.018 2508.587 505 Weight 109.3 kg Intake: IV 130 1925 400 Ampicillin-Sulbactam 3 gm 100 100 In Sodium Chloride 0.9% 100 ml @ 200 mls/hr IVPB Q6HR [facility] Rx#:[id number] Sodium Chloride 0.9% 1, 50 100 000 ml @ 50 mls/hr IV . Q20H [facility] Rx#:[id number] Sodium Chloride 0.9% 1, 825 200 000 ml @ 75 mls/hr IV . [id number] [facility] Rx#:[id number] Sodium Chloride 0.9% 500 500 ml 500 ml @ 999 mls/hr IV .Q31M [facility] Rx#:[id number] Vancomycin 1,750 mg In 500 Sodium Chloride 0.9% 500 ml 500 ml @ 167 mls/hr IVPB Q24H [facility] Rx#: [id number] Intake, IV Titration 313.018 638.587 Amount Heparin Sod,Pork in 0.45% 191.787 58.213 NaCl 25,000 unit In 0.45 % NaCl 1 250ml.bag @ 9.2 UNITS/KG/HR 10.015 mls/hr IV .Q24H [facility] Rx#: [id number] Norepinephrine 4 mg In 46.231 5.374 Sodium Chloride 0.9% 250 ml @ 0.03 MCG/KG/MIN 12. 402 mls/hr IV .[id number] [facility] Rx#:[id number] Sodium Chloride 0.9% 1, 75 75 000 ml @ 75 mls/hr IV . [id number] [facility] Rx#:[id number] Sodium Chloride 0.9% 500 500 ml 500 ml @ 999 mls/hr IV .Q31M [facility] Rx#:[id number] Oral 200 Output: Urine 350 55 95 Other: Voiding Method Indwelling Catheter Indwelling Catheter Indwelling Catheter - Exam 68-year-old male in no distress, on room air O2 sat 95% Head: Normocephalic. Atraumatic Eyes: Sclerae nonicteric. PERRLA, EOMI, nonicteric. Neck: Supple no neck masses no JVD no stridor Lungs: Minimal fine crackles at the bases no rhonchi no wheezes Heart: Regular rate and rhythm, S1-S2, no S3, no rub. 2/6 systolic murmur throughout the precordium Abdomen: Soft nontender, positive bowel sounds no organomegaly. Extremities: 2+ bipedal edema, gangrenous changes noted in the right big toe patient had an amputation on the left side/left big toe. Neurologic: Alert oriented x 3 no gross focal deficit. Psychiatric: Normal mood affect and normal status examination. - Labs CBC & Chem 7: 09/14/24 03:02 09/14/24 03:02 Labs: Abnormal Lab Results - Last 24 Hours (Table) 09/13/24 09/13/24 09/13/24 Range/Units 11:35 15:12 16:04 WBC (3.8-10.6) k/uL RBC (4.30-5.90) m/uL Hgb (13.0-17.5) gm/dL Hct (39.0-53.0) % Neutrophils # (1.3-7.7) k/uL Lymphocytes # (1.0-4.8) k/uL Chloride (98-107) mmol/L Carbon Dioxide (22-30) mmol/L BUN (9-20) mg/dL Creatinine (0.66-1.25) mg/dL Glucose (74-99) mg/dL POC Glucose (mg/dL) 209 H 160 H 164 H (70-110) mg/dL Calcium (8.4-10.2) mg/dL Troponin I (0.000-0.034) ng/mL Ur Random Sodium (40-220) mmol/L 09/13/24 09/13/24 09/14/24 Range/Units 16:40 21:51 03:02 WBC (3.8-10.6) k/uL RBC (4.30-5.90) m/uL Hgb (13.0-17.5) gm/dL Hct (39.0-53.0) % Neutrophils # (1.3-7.7) k/uL Lymphocytes # (1.0-4.8) k/uL Chloride 109 H (98-107) mmol/L Carbon Dioxide 17 L (22-30) mmol/L BUN 30 H (9-20) mg/dL Creatinine 1.62 H (0.66-1.25) mg/dL Glucose 177 H (74-99) mg/dL POC Glucose (mg/dL) 194 H (70-110) mg/dL Calcium 7.8 L (8.4-10.2) mg/dL Troponin I 0.044 H* (0.000-0.034) ng/mL Ur Random Sodium (40-220) mmol/L 09/14/24 09/14/24 09/14/24 Range/Units 03:02 05:16 06:14 WBC 16.9 H (3.8-10.6) k/uL RBC 3.63 L (4.30-5.90) m/uL Hgb 10.9 L (13.0-17.5) gm/dL Hct 34.9 L (39.0-53.0) % Neutrophils # 14.9 H (1.3-7.7) k/uL Lymphocytes # 0.7 L (1.0-4.8) k/uL Chloride (98-107) mmol/L Carbon Dioxide (22-30) mmol/L BUN (9-20) mg/dL Creatinine (0.66-1.25) mg/dL Glucose (74-99) mg/dL POC Glucose (mg/dL) 197 H (70-110) mg/dL Calcium (8.4-10.2) mg/dL Troponin I (0.000-0.034) ng/mL Ur Random Sodium 34 L (40-220) mmol/L 09/14/24 Range/Units 11:14 WBC (3.8-10.6) k/uL RBC (4.30-5.90) m/uL Hgb (13.0-17.5) gm/dL Hct (39.0-53.0) % Neutrophils # (1.3-7.7) k/uL Lymphocytes # (1.0-4.8) k/uL Chloride (98-107) mmol/L Carbon Dioxide (22-30) mmol/L BUN (9-20) mg/dL Creatinine (0.66-1.25) mg/dL Glucose (74-99) mg/dL POC Glucose (mg/dL) 169 H (70-110) mg/dL Calcium (8.4-10.2) mg/dL Troponin I (0.000-0.034) ng/mL Ur Random Sodium (40-220) mmol/L Microbiology - Last 24 Hours (Table) 09/10/24 06:30 Blood Culture - Preliminary Blood Assessment and Plan Assessment: Impression: Gangrenous right big toe Acute non-ST elevation myocardial infarction Severe coronary artery disease as noted on cardiac catheterization Acute kidney injury/ATN secondary to hypotension and contrast media given for his cardiac catheterization Severe ischemic cardiomyopathy Tobacco dependence syndrome, suspect some component of COPD Peripheral vessel occlusive disease with diabetic foot infections Dyslipidemia Hypotension most likely secondary to ischemic cardiomyopathy and LV dysfunction although sepsis is a consideration, doubt septic shock. Recommendation: Consider transferring the patient out of the ICU to monitored bed on the cardiac floor Patient is now off norepinephrine not requiring any hemodynamic support Continue Unasyn Gentle diuresis, with close monitoring of the renal profile Continue heparin as per cardiology Continue insulin as per sliding scale coverage Continue beta-blockers Continue aspirin Will continue to follow Time with Patient: Less than 30
--- NOTE | 2024-09-14 12:16 | US ---
EXAMINATION TYPE: US kidneys/renal and bladder DATE OF EXAM: 09/14/2024 COMPARISON: US CLINICAL INDICATION: Male, 68 years old with history of skyla; SKYLA TECHNIQUE: Grayscale imaging of the bilateral kidneys and urinary bladder: FINDINGS: EXAM MEASUREMENTS: Right Kidney: 11.3 x 5.3 x 5.8 cm Left Kidney: 10.1 x 6.2 x 5.9 cm Similar findings when compared to prior Right Kidney: No evidence of hydro, cystic lesion upper pole= 3.5 x 3.0 x 2.9 cm, lower pole gassed o ut Left Kidney: Limited views show no evidence of hydro, lower pole gassed out Bladder: Pt has cath There is no evidence for hydronephrosis at this point in time. No nephrolithiasis is seen. No rj s are identified. The urinary bladder is anechoic. IMPRESSION: 1. No evidence for obstructive uropathy. 2. Right renal cyst. [facility], , 09/14/2024 12:14 PM
--- NOTE | 2024-09-14 14:12 | P.PN ---
Subjective Progress Note Date: 09/14/24 Principal diagnosis: Reason for follow-up right first and second toe diabetic foot infection Patient is a 68-year-old male with a past medical history significant for diabetes mellitus osteoarthritis neuropathy patient did have a left big toe diabetic foot infection requiring left big toe amputation subsequently admitted to the hospital for evaluation of the right big and second toe discoloration mostly on the big toe concerning for diabetic foot infection prompted this consultation. Patient is status post cardiac cath on 09/13/2024 with evidence of significant coronary disease involving the LAD SOULEYMANE and circumflex as well as RCA stenosis no intervention On today's evaluation that is 09/14/2024, patient did not have any fever and denies any chills, patient is breathing comfortably on 4 L nasal oxygen, denies any worsening pain to the right big toe. Patient with no chest pain or cough patient did not have any abdominal pain nausea vomiting or any loose stools patient white count 16.9, creatinine 1.62 blood culture have been negative Objective - Vital Signs Vital signs: Vital Signs Temp 97.6 F 09/14/24 12:00 Pulse 73 09/14/24 13:00 Resp 23 09/14/24 13:00 BP 98/67 09/14/24 13:00 Pulse Ox 96 09/14/24 13:00 FiO2 Intake & Output 09/13/24 09/14/24 09/14/24 18:59 06:59 18:59 Intake Total 328.143 3553.587 800 Output Total 350 55 100 Balance 93.018 2508.587 700 Weight 109.3 kg Intake: IV 130 1925 600 Ampicillin-Sulbactam 3 gm 100 200 In Sodium Chloride 0.9% 100 ml @ 200 mls/hr IVPB Q6HR [facility] Rx#:[id number] Sodium Chloride 0.9% 1, 50 200 000 ml @ 50 mls/hr IV . Q20H [facility] Rx#:[id number] Sodium Chloride 0.9% 1, 825 200 000 ml @ 75 mls/hr IV . [id number] [facility] Rx#:[id number] Sodium Chloride 0.9% 500 500 ml 500 ml @ 999 mls/hr IV .Q31M [facility] Rx#:[id number] Vancomycin 1,750 mg In 500 Sodium Chloride 0.9% 500 ml 500 ml @ 167 mls/hr IVPB Q24H [facility] Rx#: [id number] Intake, IV Titration 313.018 638.587 Amount Heparin Sod,Pork in 0.45% 191.787 58.213 NaCl 25,000 unit In 0.45 % NaCl 1 250ml.bag @ 9.2 UNITS/KG/HR 10.015 mls/hr IV .Q24H [facility] Rx#: [id number] Norepinephrine 4 mg In 46.231 5.374 Sodium Chloride 0.9% 250 ml @ 0.03 MCG/KG/MIN 12. 402 mls/hr IV .[id number] [facility] Rx#:[id number] Sodium Chloride 0.9% 1, 75 75 000 ml @ 75 mls/hr IV . [id number] [facility] Rx#:[id number] Sodium Chloride 0.9% 500 500 ml 500 ml @ 999 mls/hr IV .Q31M [facility] Rx#:[id number] Oral 200 Output: Urine 350 55 100 Other: Voiding Method Indwelling Catheter Indwelling Catheter Indwelling Catheter - Exam GENERAL DESCRIPTION: An elderly male lying in bed in no distress RESPIRATORY SYSTEM: Unlabored breathing , decreased breath sounds at bases HEART: S1 S2 regular rate and rhythm , ABDOMEN: Soft , no tenderness EXTREMITIES: Right big toe discoloration swelling no foul-smelling drainage - Labs CBC & Chem 7: 09/14/24 03:02 09/14/24 03:02 Labs: Abnormal Lab Results - Last 24 Hours (Table) 09/13/24 09/13/24 09/13/24 Range/Units 15:12 16:04 16:40 WBC (3.8-10.6) k/uL RBC (4.30-5.90) m/uL Hgb (13.0-17.5) gm/dL Hct (39.0-53.0) % Neutrophils # (1.3-7.7) k/uL Lymphocytes # (1.0-4.8) k/uL Chloride (98-107) mmol/L Carbon Dioxide (22-30) mmol/L BUN (9-20) mg/dL Creatinine (0.66-1.25) mg/dL Glucose (74-99) mg/dL POC Glucose (mg/dL) 160 H 164 H (70-110) mg/dL Calcium (8.4-10.2) mg/dL Troponin I 0.044 H* (0.000-0.034) ng/mL Ur Random Sodium (40-220) mmol/L 09/13/24 09/14/24 09/14/24 Range/Units 21:51 03:02 03:02 WBC 16.9 H (3.8-10.6) k/uL RBC 3.63 L (4.30-5.90) m/uL Hgb 10.9 L (13.0-17.5) gm/dL Hct 34.9 L (39.0-53.0) % Neutrophils # 14.9 H (1.3-7.7) k/uL Lymphocytes # 0.7 L (1.0-4.8) k/uL Chloride 109 H (98-107) mmol/L Carbon Dioxide 17 L (22-30) mmol/L BUN 30 H (9-20) mg/dL Creatinine 1.62 H (0.66-1.25) mg/dL Glucose 177 H (74-99) mg/dL POC Glucose (mg/dL) 194 H (70-110) mg/dL Calcium 7.8 L (8.4-10.2) mg/dL Troponin I (0.000-0.034) ng/mL Ur Random Sodium (40-220) mmol/L 09/14/24 09/14/24 09/14/24 Range/Units 05:16 06:14 11:14 WBC (3.8-10.6) k/uL RBC (4.30-5.90) m/uL Hgb (13.0-17.5) gm/dL Hct (39.0-53.0) % Neutrophils # (1.3-7.7) k/uL Lymphocytes # (1.0-4.8) k/uL Chloride (98-107) mmol/L Carbon Dioxide (22-30) mmol/L BUN (9-20) mg/dL Creatinine (0.66-1.25) mg/dL Glucose (74-99) mg/dL POC Glucose (mg/dL) 197 H 169 H (70-110) mg/dL Calcium (8.4-10.2) mg/dL Troponin I (0.000-0.034) ng/mL Ur Random Sodium 34 L (40-220) mmol/L Microbiology - Last 24 Hours (Table) 09/10/24 06:30 Blood Culture - Preliminary Blood Assessment and Plan (1) Diabetic foot infection Current Visit: Yes Status: Acute Code(s): E11.628 - TYPE 2 DIABETES MELLITUS WITH OTHER SKIN COMPLICATIONS; L08.9 - LOCAL INFECTION OF THE SKIN AND SUBCUTANEOUS TISSUE, UNSP SNOMED Code(s): 544941454 (2) Diabetic foot ulcer Current Visit: Yes Status: Acute Code(s): E11.621 - TYPE 2 DIABETES MELLITUS WITH FOOT ULCER; L97.509 - NON-PRESSURE CHRONIC ULCER OTH PRT UNSP FOOT W UNSP SEVERITY SNOMED Code(s): 005234647 Plan: 1patient presented to hospital with discoloration to the right first and second toe in this patient who did have a previous history of left diabetic foot infection osteomyelitis requiring amputation of left big toe culture at that time was positive for MRSA and Finegoldia magna 2patient has been evaluated by vascular surgery and planning for amputation of the right first and second toe, per surgery has been put on hold because of patient developing chest pain did have a cardiac cath with evidence of multivessel disease no intervention was done because of his cardiac decompensation 3patient also noticed to have worsening of his creatinine which is up to 1.62 vancomycin will be stopped her daptomycin has been added patient with multivessel disease continued on Lipitor will watch his CK closely Dictation was produced using [employer] dictation software. please excuse any grammatical, word or spelling errors. Time with Patient: Less than 30
--- NOTE | 2024-09-14 14:45 | CA ---
Transthoracic Echo Report Name: Roberto Cage Age: 68 Gender: M : 1955 Exam Date: 09/14/2024 07:52 Exam Location: [place] [facility] Ht (in): 66 Wt (lb): 239 Ordering Physician: Willie Frias DO ([email or web address]) Attending/Referring Phys: Forester Aide Aye Mena RDCS Procedure CPT: Indications: re: LV function Cardiac Hx: Limited for LVEF Technical Quality: Technically difficult study Contrast 1: Definity Total Dose (mL): 1 Contrast 2: Total Dose (mL): MEASUREMENTS (Male / Female) Normal Values 2D ECHO LV Diastolic Diameter PLAX 4.5 cm 4.2 - 5.9 / 3.9 - 5.3 cm LV Systolic Diameter PLAX 3.9 cm IVS Diastolic Thickness 1.0 cm 0.6 - 1.0 / 0.6 - 0.9 cm LVPW Diastolic Thickness 1.1 cm 0.6 - 1.0 / 0.6 - 0.9 cm LV Relative Wall Thickness 0.5 LVOT Diameter 2.4 cm LV Diastolic Volume MOD BP 185.6 cm??? 67 - 155 / 56 - 104 cm??? LV Systolic Volume MOD BP 125.1 cm??? 22 - 58 / 19 - 49 cm??? LV Ejection Fraction MOD BP 32.6 % >= 55 % LV Cardiac Index MOD BP 2080.6 cm???/min???m??? LV Diastolic Volume MOD 4C 175.0 cm??? LV Systolic Volume MOD 4C 111.6 cm??? LV Ejection Fraction MOD 4C 36.3 % LV Cardiac Index MOD 4C 2182.4 cm???/min???m??? LV Diastolic Length 4C 8.9 cm LV Systolic Length 4C 7.9 cm LV Diastolic Volume MOD 2C 191.5 cm??? LV Systolic Volume MOD 2C 131.4 cm??? LV Ejection Fraction MOD 2C 31.4 % LV Cardiac Index MOD 2C 2068.6 cm???/min???m??? LV Diastolic Length 2C 9.2 cm LV Systolic Length 2C 8.4 cm DOPPLER TR Peak Velocity 206.6 cm/s TR Peak Gradient 17.1 mmHg Right Atrial Pressure 20.0 mmHg Pulmonary Artery Systolic Pressu 37.1 mmHg Right Ventricular Systolic Press 37.1 mmHg FINDINGS Left Ventricle Left ventricular ejection fraction is estimated at 30-35 %. Moderately increased left ventricular diastolic volume. Severely increased left ventricular systolic volume. Moderately decreased left ventricular ejection fraction with regional variability. Right Ventricle Right ventricle not well visualized. Right ventricular systolic pressure within normal limits. Right Atrium Left Atrium Mitral Valve Structurally normal mitral valve. [id number] mitral regurgitation. Aortic Valve Aortic valve not well visualized. No aortic valve stenosis or regurgitation. Tricuspid Valve Structurally normal tricuspid valve. Trace tricuspid regurgitation. Pulmonic Valve Pulmonic valve not well visualized. Pericardium No pericardial effusion. Pleural effusion. Aorta CONCLUSIONS Technically difficult study with limited views LVEF 30 to 35% Inferior and inferolateral wall hypokinesia Moderately dilated LV cavity Moderate MR Previewed by: Dr Simon Cantor (Electronically Signed) Final Date: 14 September 2024 14:44
[2024-09-14 15:57] LABS: Glucose,Whole Blood 211 mg/dL (70-110)
[2024-09-14] MEDS: HALOPERIDOL ORAL SOLN 10 MG/5 ML CUP PO PRN (18:53)
--- NOTE | 2024-09-14 19:46 | P.PN ---
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 Cardiology consultation was requested because of episodes of chest discomfort. The patient has been seen by Dr. Frias in the past. He had prior echocardiogram that suggested cardiomyopathy. Today he had episode of chest discomfort with some dyspnea. At the time of my evaluation his discomfort is better. He denies any palpitations or dizziness. He continues to be in sinus mechanism. He is limited in his physical activity. He has peripheral edema but no clear PND nor orthopnea. The history of hypertension, hyperlipidemia and chronic tobacco use. He had a limited echocardiogram in May that was reported showing an ejection fraction of 35 to 40%. And had mild troponin elevation. Medications: At home he is on Lasix 20 mg daily, spironolactone 25 mg daily, insulin, Flomax 09/13 Patient seen and examined today on the cardiac stepdown unit. Blood pressure this morning at 90/55 and Lasix held and patient started on IV fluids 0.9 normal saline at 75 cc/h. Creatinine is 1.23. Patient is scheduled for cardiac catheterization today with Dr. Frias. 09/14/2024 Patient is not oliguric ATN with minimal urine output, not responding to IV fl uids or diuretic therapy. His echocardiogram showed an EF of 30 to 35% with inferior wall hypokinesia. His heart catheter yesterday showed multivessel CAD with severe disease involving LAD. He appears lethargic however denies any chest pain chest pressure Physical Examination: Head: Normocephalic. Eyes: Sclerae nonicteric. Neck: No significant JVD Lungs: Poor respiratory effort, mild crackles audible in bilateral bases Heart: Regular rate and rhythm, S1-S2, no S3, no rub. Systolic ejection murmur. Abdomen: Soft nontender, positive bowel sounds no organomegaly. Extremities: +2 edema, gangrenous right toe with amputation on the left side. Impression: 1. NSTEMI 2. Ischemic cardiomyopathy 3. Oliguric ATN 4. Gangrenous toe 5. History of diabetes 6. Chronic tobacco use 7. Prior history of hypertension 8. History of hyperlipidemia Plan: Continue IV heparin. Continue aspirin, statin, Continue the addition of statin and low-dose beta-shirin Continue to monitor renal function and urine output. Antibiotic regimen and sepsis management as per infectious disease team And ICU team Based on patient's kidney function, we will decide if he is optimized for heart catheterization on Monday. If he is optimized, will plan for Impella assisted PCI. Objective - Vital Signs Vital signs: Vital Signs Temp 97.7 F 09/14/24 16:00 Pulse 72 09/14/24 19:00 Resp 26 H 09/14/24 19:00 BP 108/84 09/14/24 19:00 Pulse Ox 95 09/14/24 19:00 FiO2 Intake & Output 09/14/24 09/14/24 09/15/24 06:59 18:59 06:59 Intake Total 2563.587 1554 Output Total 55 155 Balance 2508.587 1399 Weight 109.3 kg Intake: IV 1925 1150 Ampicillin-Sulbactam 3 gm 100 200 In Sodium Chloride 0.9% 100 ml @ 200 mls/hr IVPB Q6HR [facility] Rx#:[id number] Sodium Chloride 0.9% 1, 400 000 ml @ 50 mls/hr IV . Q20H [facility] Rx#:[id number] Sodium Chloride 0.9% 1, 350 000 ml @ 50 mls/hr IV . Q20H [facility] Rx#:[id number] Sodium Chloride 0.9% 1, 825 200 000 ml @ 75 mls/hr IV . [id number] [facility] Rx#:[id number] Sodium Chloride 0.9% 500 500 ml 500 ml @ 999 mls/hr IV .Q31M [facility] Rx#:[id number] Vancomycin 1,750 mg In 500 Sodium Chloride 0.9% 500 ml 500 ml @ 167 mls/hr IVPB Q24H [facility] Rx#: [id number] Intake, IV Titration 638.587 Amount Heparin Sod,Pork in 0.45% 58.213 NaCl 25,000 unit In 0.45 % NaCl 1 250ml.bag @ 9.2 UNITS/KG/HR 10.015 mls/hr IV .Q24H [facility] Rx#: [id number] Norepinephrine 4 mg In 5.374 Sodium Chloride 0.9% 250 ml @ 0.03 MCG/KG/MIN 12. 402 mls/hr IV .[id number] [facility] Rx#:[id number] Sodium Chloride 0.9% 1, 75 000 ml @ 75 mls/hr IV . [id number] [facility] Rx#:[id number] Sodium Chloride 0.9% 500 500 ml 500 ml @ 999 mls/hr IV .Q31M [facility] Rx#:[id number] Oral 404 Output: Urine 55 155 Other: Voiding Method Indwelling Catheter Indwelling Catheter - Labs CBC & Chem 7: 09/14/24 03:02 09/14/24 03:02 Labs: Abnormal Lab Results - Last 24 Hours (Table) 09/13/24 09/14/24 09/14/24 Range/Units 21:51 03:02 03:02 WBC 16.9 H (3.8-10.6) k/uL RBC 3.63 L (4.30-5.90) m/uL Hgb 10.9 L (13.0-17.5) gm/dL Hct 34.9 L (39.0-53.0) % Neutrophils # 14.9 H (1.3-7.7) k/uL Lymphocytes # 0.7 L (1.0-4.8) k/uL APTT (22.0-30.0) sec Chloride 109 H (98-107) mmol/L Carbon Dioxide 17 L (22-30) mmol/L BUN 30 H (9-20) mg/dL Creatinine 1.62 H (0.66-1.25) mg/dL Glucose 177 H (74-99) mg/dL POC Glucose (mg/dL) 194 H (70-110) mg/dL Calcium 7.8 L (8.4-10.2) mg/dL Ur Random Sodium (40-220) mmol/L 09/14/24 09/14/24 09/14/24 Range/Units 05:16 06:14 11:14 WBC (3.8-10.6) k/uL RBC (4.30-5.90) m/uL Hgb (13.0-17.5) gm/dL Hct (39.0-53.0) % Neutrophils # (1.3-7.7) k/uL Lymphocytes # (1.0-4.8) k/uL APTT (22.0-30.0) sec Chloride (98-107) mmol/L Carbon Dioxide (22-30) mmol/L BUN (9-20) mg/dL Creatinine (0.66-1.25) mg/dL Glucose (74-99) mg/dL POC Glucose (mg/dL) 197 H 169 H (70-110) mg/dL Calcium (8.4-10.2) mg/dL Ur Random Sodium 34 L (40-220) mmol/L 09/14/24 09/14/24 Range/Units 14:51 15:55 WBC (3.8-10.6) k/uL RBC (4.30-5.90) m/uL Hgb (13.0-17.5) gm/dL Hct (39.0-53.0) % Neutrophils # (1.3-7.7) k/uL Lymphocytes # (1.0-4.8) k/uL APTT 42.4 H (22.0-30.0) sec Chloride (98-107) mmol/L Carbon Dioxide (22-30) mmol/L BUN (9-20) mg/dL Creatinine (0.66-1.25) mg/dL Glucose (74-99) mg/dL POC Glucose (mg/dL) 211 H (70-110) mg/dL Calcium (8.4-10.2) mg/dL Ur Random Sodium (40-220) mmol/L
[2024-09-14 20:13] LABS: Glucose,Whole Blood 170 mg/dL (70-110)
[2024-09-14 20:17] LABS: Glucose,Whole Blood 172 mg/dL (70-110)
[2024-09-14] MEDS: DAPTOmycin 500 MG in SODIUM CHLORIDE 0.9% 50 ML IVPB SCH (20:41)
[2024-09-15] MEDS: AMPICILLIN-SULBACTAM 3 GM in SODIUM CHLORIDE 0.9% 100 ML IVPB SCH (01:39)
[2024-09-15 05:32] LABS: Basophils % (A) 0 %; Eosinophils % (A) 0 %; HCT 37.1 % (39.0-53.0); HGB 11.5 gm/dL (13.0-17.5); Hypochromasia Moderate; Lymphocytes % (A) 7 %; MCHC 30.9 g/dL (31.0-37.0); Mean Platelet Volume 9.8; Monocytes # (A) 0.7 k/uL (0-1.0); Monocytes % (A) 5 %; Neutrophils # (A) 11.4 k/uL (1.3-7.7); Neutrophils % (A) 86 %; Platelet Count 199 k/uL (150-450); RBC 3.83 m/uL (4.30-5.90); WBC 13.2 k/uL (3.8-10.6)
[2024-09-15 05:46] LABS: African American GFR (CKD) 39 (>60 ml/min/1.73 sqM); Anion Gap 13 mmol/L; Blood Urea Nitrogen 37 mg/dL (9-20); Calcium 7.8 mg/dL (8.4-10.2); Carbon Dioxide 21 mmol/L (22-30); Chloride 106 mmol/L (98-107); Glucose 164 mg/dL (74-99); Non-African American GFR(CKD) 34 (>60 ml/min/1.73 sqM); Potassium 3.7 mmol/L (3.5-5.1); Sodium 140 mmol/L (137-145)
[2024-09-15 06:53] LABS: Glucose,Whole Blood 162 mg/dL (70-110)
[2024-09-15] MEDS: FUROSEMIDE 10 MG/ML 10 ML VIAL IV STA ×2 (10:08→15:28)
[2024-09-15] MEDS: QUEtiapine 25 MG TAB PO SCH (10:10)
--- NOTE | 2024-09-15 10:27 | P.PN ---
Subjective Patient is seen in follow-up for acute kidney injury. Creatinine 1.97. Remains oliguric. On room air. Vital signs are stable. General: No acute distress. HEENT: Head exam is unremarkable. LUNGS: No audible rhonchi or wheezes. HEART: Rate and Rhythm are regular. ABDOMEN: Nontender. EXTREMITITES: 2+ edema. Objective - Vital Signs Vital signs: Vital Signs Temp 93.9 F L 09/15/24 09:00 Pulse 69 09/15/24 10:00 Resp 10 L 09/15/24 10:00 BP 126/75 09/15/24 10:00 Pulse Ox 96 09/15/24 10:00 FiO2 Intake & Output 09/14/24 09/15/24 09/15/24 18:59 06:59 18:59 Intake Total 1554 700 382.014 Output Total 155 65 50 Balance 1399 635 332.014 Weight 108.4 kg Intake: IV 1150 700 150 Ampicillin-Sulbactam 3 gm 200 In Sodium Chloride 0.9% 100 ml @ 200 mls/hr IVPB Q6HR [facility] Rx#:[id number] Ampicillin-Sulbactam 3 gm 100 In Sodium Chloride 0.9% 100 ml @ 200 mls/hr IVPB Q8H [facility] Rx#:[id number] DAPTOmycin 500 mg In 50 Sodium Chloride 0.9% 50 ml @ 100 mls/hr IVPB Q24HR@2100 [facility] Rx#: [id number] Sodium Chloride 0.9% 1, 400 000 ml @ 50 mls/hr IV . Q20H [facility] Rx#:[id number] Sodium Chloride 0.9% 1, 350 550 150 000 ml @ 50 mls/hr IV . Q20H [facility] Rx#:[id number] Sodium Chloride 0.9% 1, 200 000 ml @ 75 mls/hr IV . [id number] [facility] Rx#:[id number] Intake, IV Titration 232.014 Amount Heparin Sod,Pork in 0.45% 232.014 NaCl 25,000 unit In 0.45 % NaCl 1 250ml.bag @ 9.2 UNITS/KG/HR 10.015 mls/hr IV .Q24H [facility] Rx#: [id number] Oral 404 Output: Urine 155 65 50 Other: Voiding Method Indwelling Catheter Indwelling Catheter # Bowel Movements 1 - Labs CBC & Chem 7: 09/15/24 04:52 09/15/24 04:52 Labs: Abnormal Lab Results - Last 24 Hours (Table) 09/14/24 09/14/24 09/14/24 Range/Units 11:14 14:51 15:55 WBC (3.8-10.6) k/uL RBC (4.30-5.90) m/uL Hgb (13.0-17.5) gm/dL Hct (39.0-53.0) % MCHC (31.0-37.0) g/dL Neutrophils # (1.3-7.7) k/uL APTT 42.4 H (22.0-30.0) sec Carbon Dioxide (22-30) mmol/L BUN (9-20) mg/dL Creatinine (0.66-1.25) mg/dL Glucose (74-99) mg/dL POC Glucose (mg/dL) 169 H 211 H (70-110) mg/dL Calcium (8.4-10.2) mg/dL 09/14/24 09/14/24 09/15/24 Range/Units 20:11 20:15 04:45 WBC (3.8-10.6) k/uL RBC (4.30-5.90) m/uL Hgb (13.0-17.5) gm/dL Hct (39.0-53.0) % MCHC (31.0-37.0) g/dL Neutrophils # (1.3-7.7) k/uL APTT 53.7 H (22.0-30.0) sec Carbon Dioxide (22-30) mmol/L BUN (9-20) mg/dL Creatinine (0.66-1.25) mg/dL Glucose (74-99) mg/dL POC Glucose (mg/dL) 170 H 172 H (70-110) mg/dL Calcium (8.4-10.2) mg/dL 09/15/24 09/15/24 09/15/24 Range/Units 04:52 04:52 06:52 WBC 13.2 H (3.8-10.6) k/uL RBC 3.83 L (4.30-5.90) m/uL Hgb 11.5 L (13.0-17.5) gm/dL Hct 37.1 L (39.0-53.0) % MCHC 30.9 L (31.0-37.0) g/dL Neutrophils # 11.4 H (1.3-7.7) k/uL APTT (22.0-30.0) sec Carbon Dioxide 21 L (22-30) mmol/L BUN 37 H (9-20) mg/dL Creatinine 1.97 H (0.66-1.25) mg/dL Glucose 164 H (74-99) mg/dL POC Glucose (mg/dL) 162 H (70-110) mg/dL Calcium 7.8 L (8.4-10.2) mg/dL Assessment and Plan Plan: Assessment: 1. Acute kidney injury secondary to ATN secondary to hypotension and contrast associated acute kidney injury. Baseline creatinine near 1 and is 1.97 today. Oliguric. No hydronephrosis noted on renal ultrasound. 2. Right foot toe infection on antibiotics. 3. NSTEMI status post cardiac catheterization on September 13, 2024 which showed triple-vessel disease. 4. Diabetes mellitus. 5. Septic shock, now off Levophed. 6. Metabolic acidosis secondary to acute kidney injury and IV fluids. Better. 7. Volume overload. 8. Cardiomyopathy with ejection fraction of 30 to 35% with moderate mitral regurgitation. Plan: Lasix 80 mg IV once today. Avoid nephrotoxins. Continue to monitor renal function and urine output. If no improvement in urine output in the next 24 hours, will initiate renal replacement therapy. Case discussed with patient. He is agreeable with the plan.
[2024-09-15 10:58] LABS: Glucose,Whole Blood 160 mg/dL (70-110)
--- NOTE | 2024-09-15 11:00 | P.PN ---
Subjective Progress Note Date: 09/15/24 68 year old M with PMH of DM with neuropathy, BPH presented to the ED for right foot that has been getting increasingly painful, swollen, red, tender. In the ED he underwent extensive evaluation. BP 117/69, HR 103, T 98.1F, RR 20, 95% on RA. CBC, Coag panel, CMP significant for WBC 15.4, RBC 3.85, Hg 11.7, Hct 36, Na 136, BUN 23, glu 196, alk phos 22.1. Lactic acid 1.4. Mag 2.1. CRP 8.2. A1c 8.1. Foot XR showed moderate to severe diffuse soft tissue swelling with persistent linear 6 mm soft tissue foreign body at the level of 2nd proximal phalanx. Patient was started on Vancomycin and Zosyn and admitted for further workup and management. ID consulted recommended Vascular Sx consult. Antibiotics switched to Vancomycin and Unasyn by ID. Vascular Sx recommended amputation of the right big toe which was initially scheduled for 09/12. Patient reports shortness of breath on 09/11, CXR showed cardiomegaly and pulmonary vascular congestion for which he was started on Lasix IV. He developed chest pain on 09/12, Troponin 0.045, 0.043, started on Heparin drip and Cardiology consulted. He underwent cardiac cath on 09/13 which showed 90% proximal mid LAD stenosis, diagonal one 80%, OM1 90%, mid circumflex 100%, 99% mid RCA stenosis. He was hypotensive during the procedure which resulted in transfer to ICU on Levophed. Levophed was weaned off on 09/14. Nephrology consulted for low urine output and SKYLA. 09/14 Patient was seen and examined. Confused. Pulling out IV. Urine output of 405 cc over the past 24H despite Lasix 60 mg IV. Plans for Lasix 80 mg IV x 1 today with plans for HD if no response. Renal US shows no hydronephrosis. Maintained on NS at 50 cc/hr. On heparin drip at 9.2 units/kg/hr. Repeat Echo showed EF 30-35% with inferior wall hypokinesis, moderate MR. CBC, Coag panel, BMP significant for WBC 13.2, RBC 3.82, Hg 11.5, Hct 37.1, APTT 53.7, bicarb 21, BUN 37, Cr 1.97, glu 164, Ca 7.8. ID has switched Vancomycin for Daptomycin and continued on Unasyn. General: non toxic, no distress, appears at stated age Derm: warm, dry Head: atraumatic, normocephalic, symmetric Eyes: EOMI, no lid lag, anicteric sclera Mouth: no lip lesion, mucus membranes moist Cardiovascular: S1S2 reg, no murmur Lungs: Crackles at the bases bilateral, no rhonchi, no rales , no accessory muscle use Ext: no gross muscle atrophy, 1-2+ pitting LE edema, no contractures Neuro: no focal neuro deficits Psych: Alert, oriented, appropriate affect Based on my assessment of this patient, this patient meets a high complexity level of care. Shock secondary to sedation used during cardiac cath versus cardiogenic: Levophed weaned off. Repeat Echo shows EF 30-35%. Consider dobutamine drip if unable to maintain BP. Cardiology on board. SKYLA on CKD with metabolic acidosis: Likely secondary to hypotension and contrast used during cardiac cath. Monitor daily renal function. NS at 50 cc/hr. Renal US no hydro. Plans for Lasix 80 mg IV x 1, may need HD. Nephrology on board. NSTEMI: ASA 81 mg PO QD. Lipitor 40 mg PO QD. Heparin drip, monitor APTT. Cardiac cath as above. Telemetry monitoring. Hopeful plans on Impella assisted PCI if renal function improves. Cardiology on board. Acute hypoxic respiratory failure secondary to systolic CHF exacerbation: Echo 06/20 shows EF 35-40%. Lasix 40 mg IV x 1 on 09/11. Lasix 60 mg IV x 1 on 09/14. Aldactone and Metoprolol discontinued due to hypotension. Strict intake and outtake. Daily weights. Sepsis secondary to cellulitis versus osteomyelitis of the right great toe: Continue Unasyn 3g IV TID. Vancomycin discontinued for Daptomycin 500 mg IV QD. ID and Vascular on board. Diabetes type 2 with diabetic neuropathy: Continue ISS + Accuchecks ACHS with hypoglycemic precautions. BPH: Flomax 0.4 mg PO QHS. CODE STATUS: FULL CODE DVT Prophylaxis: Heparin drip GI Prophylaxis: Designated medical POA if patient is not able to make medical decisions for themselves: Son. I have reviewed the following regional sales consultant notes: Cardiology, ID, Nephrology. I have reviewed the results of the following tests: CBC, BMP, Coag panel, Echo, Renal US. I have ordered the following tests: CBC, Coag panel and BMP in the AM. I have discussed the care of this patient with the following independent historian: SONYA. I have independently interpreted the following test below: I have discussed the management of this patient with the following physician: Objective - Vital Signs Vital signs: Vital Signs Temp 97.7 F 09/14/24 20:00 Pulse 66 09/15/24 06:30 Resp 28 H 09/15/24 06:30 BP 117/69 09/15/24 06:30 Pulse Ox 96 09/15/24 06:30 FiO2 Intake & Output 09/14/24 09/15/24 09/15/24 18:59 06:59 18:59 Intake Total 1554 700 Output Total 155 65 Balance 1399 635 Weight 108.4 kg Intake: IV 1150 700 Ampicillin-Sulbactam 3 gm 200 In Sodium Chloride 0.9% 100 ml @ 200 mls/hr IVPB Q6HR [facility] Rx#:[id number] Ampicillin-Sulbactam 3 gm 100 In Sodium Chloride 0.9% 100 ml @ 200 mls/hr IVPB Q8H [facility] Rx#:[id number] DAPTOmycin 500 mg In 50 Sodium Chloride 0.9% 50 ml @ 100 mls/hr IVPB Q24HR@2100 [facility] Rx#: [id number] Sodium Chloride 0.9% 1, 400 000 ml @ 50 mls/hr IV . Q20H [facility] Rx#:[id number] Sodium Chloride 0.9% 1, 350 550 000 ml @ 50 mls/hr IV . Q20H [facility] Rx#:[id number] Sodium Chloride 0.9% 1, 200 000 ml @ 75 mls/hr IV . [id number] [facility] Rx#:[id number] Oral 404 Output: Urine 155 65 Other: Voiding Method Indwelling Catheter Indwelling Catheter # Bowel Movements 1 - Labs CBC & Chem 7: 09/15/24 04:52 09/15/24 04:52 Labs: Abnormal Lab Results - Last 24 Hours (Table) 09/14/24 09/14/24 09/14/24 Range/Units 05:16 11:14 14:51 WBC (3.8-10.6) k/uL RBC (4.30-5.90) m/uL Hgb (13.0-17.5) gm/dL Hct (39.0-53.0) % MCHC (31.0-37.0) g/dL Neutrophils # (1.3-7.7) k/uL APTT 42.4 H (22.0-30.0) sec Carbon Dioxide (22-30) mmol/L BUN (9-20) mg/dL Creatinine (0.66-1.25) mg/dL Glucose (74-99) mg/dL POC Glucose (mg/dL) 169 H (70-110) mg/dL Calcium (8.4-10.2) mg/dL Ur Random Sodium 34 L (40-220) mmol/L 09/14/24 09/14/24 09/14/24 Range/Units 15:55 20:11 20:15 WBC (3.8-10.6) k/uL RBC (4.30-5.90) m/uL Hgb (13.0-17.5) gm/dL Hct (39.0-53.0) % MCHC (31.0-37.0) g/dL Neutrophils # (1.3-7.7) k/uL APTT (22.0-30.0) sec Carbon Dioxide (22-30) mmol/L BUN (9-20) mg/dL Creatinine (0.66-1.25) mg/dL Glucose (74-99) mg/dL POC Glucose (mg/dL) 211 H 170 H 172 H (70-110) mg/dL Calcium (8.4-10.2) mg/dL Ur Random Sodium (40-220) mmol/L 09/15/24 09/15/24 09/15/24 Range/Units 04:45 04:52 04:52 WBC 13.2 H (3.8-10.6) k/uL RBC 3.83 L (4.30-5.90) m/uL Hgb 11.5 L (13.0-17.5) gm/dL Hct 37.1 L (39.0-53.0) % MCHC 30.9 L (31.0-37.0) g/dL Neutrophils # 11.4 H (1.3-7.7) k/uL APTT 53.7 H (22.0-30.0) sec Carbon Dioxide 21 L (22-30) mmol/L BUN 37 H (9-20) mg/dL Creatinine 1.97 H (0.66-1.25) mg/dL Glucose 164 H (74-99) mg/dL POC Glucose (mg/dL) (70-110) mg/dL Calcium 7.8 L (8.4-10.2) mg/dL Ur Random Sodium (40-220) mmol/L 09/15/24 Range/Units 06:52 WBC (3.8-10.6) k/uL RBC (4.30-5.90) m/uL Hgb (13.0-17.5) gm/dL Hct (39.0-53.0) % MCHC (31.0-37.0) g/dL Neutrophils # (1.3-7.7) k/uL APTT (22.0-30.0) sec Carbon Dioxide (22-30) mmol/L BUN (9-20) mg/dL Creatinine (0.66-1.25) mg/dL Glucose (74-99) mg/dL POC Glucose (mg/dL) 162 H (70-110) mg/dL Calcium (8.4-10.2) mg/dL Ur Random Sodium (40-220) mmol/L
--- NOTE | 2024-09-15 11:49 | P.PN ---
Subjective Progress Note Date: 09/15/24 Principal diagnosis: Gangrenous right big toe This is a 68-year-old white male, known history of type 2 diabetes, peripheral vessel occlusive disease secondary to diabetes, patient was admitted on 09/10/2014, presented to the ER with right toe infection. The right big toe has been getting increasingly painful, swollen, red and tender. 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 Seen in the ER, foot x-ray showed moderate to severe soft tissue swelling, patient was admitted with diabetic foot infection. Seen by infectious disease, placed on antibiotics, patient was also seen by vascular surgery and cardiology for elevated troponin. Patient underwent cardiac catheterization today, he was found to have 90% proximal mid LAD stenosis 80% diagonal 190% OM1 100% mid circumflex and 99% mid RCA. Patient was also noted to have slightly elevated left-sided filling pressures, patient was noted to be hypotensive in the Coning Machine [employer], placed on norepinephrine, admitted to the ICU because of hypotension and this consult was initiated. During my evaluation, patient had no shortness of breath, no cough, no wheezing, he had some vague chest discomfort. Patient is being considered for possible Impella protected PCI of LAD and RCA down the line, concerned about his renal status and contrast media. Labs on this patient today showed leukocytosis with WBC count of 14.2 hemoglobin is 11 electrolytes are normal BUN is 26 creatinine 1.23. Patient has been seen by infectious disease on the case, presently on Unasyn 3 g every 6 hours. Preliminary report on blood cultures since admission has been negative. Pulmonary trejo, patient has been a smoker over the years, he had at least a 99-nqdv-slth smoking history since age 13. Has not been on any inhalers and has not been diagnosed with COPD. Patient was seen today on 09/14/2023, remains in the ICU, patient has been seen by many consultants including cardiology, infectious disease, nephrology, patient is developing worsening renal failure picture, seen by nephrology, recommended Lasix, and bicarb. Patient is on Unasyn for his big toe infection. Patient has leukocytosis with WBC of 16.9 hemoglobin 10.9 bicarb is 17 BUN is 30 creatinine is up to 1.62. Patient is off norepinephrine, not requiring any pressors, he had norepinephrine last night shortly after he came back from the cardiac catheterization and he is now hemodynamically stable off norepinephrine. Pulmonary trejo no cough no wheezing no shortness of breath his acute kidney injury felt to be related to hypotension and contrast media his initial present ation was a presentation of non-ST elevation myocardial infarction and he was found to have significant triple-vessel coronary artery disease. Chest x-ray did not show evidence of fluid overload patient did receive Lasix and he remains on Lasix as recommended by nephrology. Patient was seen today on 09/15/2023, patient remains in the ICU, confused, pulling his IV lines, remains on Unasyn and daptomycin, remains on Lasix, patient developed worsening renal failure, that is being addressed by neph rology. No chest x-ray was done today, however he is scheduled to have a chest x-ray in a.m., presently on room air, does not seem to be in any distress, but is intermittently confused, requiring a sitter to keep a close watch on the patient. WBC count is 13.2 hemoglobin 11.5, electrolytes are normal BUN is 37, creatinine is up to 1.97. Patient is being followed by many consultants including cardiology, infectious disease, and nephrology. Objective - Vital Signs Vital signs: Vital Signs Temp 93.5 F L 09/15/24 11:00 Pulse 66 09/15/24 11:00 Resp 24 09/15/24 11:00 BP 109/90 09/15/24 11:00 Pulse Ox 98 09/15/24 11:00 FiO2 Intake & Output 09/14/24 09/15/24 09/15/24 18:59 06:59 18:59 Intake Total 1554 700 487.014 Output Total 155 65 150 Balance 1399 635 337.014 Weight 108.4 kg Intake: IV 1150 700 255 Ampicillin-Sulbactam 3 gm 200 In Sodium Chloride 0.9% 100 ml @ 200 mls/hr IVPB Q6HR [facility] Rx#:[id number] Ampicillin-Sulbactam 3 gm 100 100 In Sodium Chloride 0.9% 100 ml @ 200 mls/hr IVPB Q8H [facility] Rx#:[id number] DAPTOmycin 500 mg In 50 Sodium Chloride 0.9% 50 ml @ 100 mls/hr IVPB Q24HR@2100 [facility] Rx#: [id number] Sodium Chloride 0.9% 1, 400 000 ml @ 50 mls/hr IV . Q20H [facility] Rx#:[id number] Sodium Chloride 0.9% 1, 350 550 155 000 ml @ 50 mls/hr IV . Q20H [facility] Rx#:[id number] Sodium Chloride 0.9% 1, 200 000 ml @ 75 mls/hr IV . [id number] [facility] Rx#:[id number] Intake, IV Titration 232.014 Amount Heparin Sod,Pork in 0.45% 232.014 NaCl 25,000 unit In 0.45 % NaCl 1 250ml.bag @ 9.2 UNITS/KG/HR 10.015 mls/hr IV .Q24H [facility] Rx#: [id number] Oral 404 Output: Urine 155 65 150 Other: Voiding Method Indwelling Catheter Indwelling Catheter # Bowel Movements 1 - Exam 68-year-old male in no distress, on room air O2 sat 95%, patient is confused intermittently, requiring a sitter as the patient is pulling his lines intermittently. Head: Normocephalic. Atraumatic Eyes: Sclerae nonicteric. PERRLA, EOMI, nonicteric. Neck: Supple no neck masses no JVD no stridor Lungs: Minimal fine crackles at the bases no rhonchi no wheezes Heart: Regular rate and rhythm, S1-S2, no S3, no rub. 2/6 systolic murmur throughout the precordium Abdomen: Soft nontender, positive bowel sounds no organomegaly. Extremities: 2+ bipedal edema, gangrenous changes noted in the right big toe patient had an amputation on the left side/left big toe. Neurologic: Patient is awake, follows simple instructions but according to the nurses he is confused and he is forgetting things. Psychiatric: Confused, follows simple instructions, - Labs CBC & Chem 7: 09/15/24 04:52 09/15/24 04:52 Labs: Abnormal Lab Results - Last 24 Hours (Table) 09/14/24 09/14/24 09/14/24 Range/Units 14:51 15:55 20:11 WBC (3.8-10.6) k/uL RBC (4.30-5.90) m/uL Hgb (13.0-17.5) gm/dL Hct (39.0-53.0) % MCHC (31.0-37.0) g/dL Neutrophils # (1.3-7.7) k/uL APTT 42.4 H (22.0-30.0) sec Carbon Dioxide (22-30) mmol/L BUN (9-20) mg/dL Creatinine (0.66-1.25) mg/dL Glucose (74-99) mg/dL POC Glucose (mg/dL) 211 H 170 H (70-110) mg/dL Calcium (8.4-10.2) mg/dL 09/14/24 09/15/24 09/15/24 Range/Units 20:15 04:45 04:52 WBC (3.8-10.6) k/uL RBC (4.30-5.90) m/uL Hgb (13.0-17.5) gm/dL Hct (39.0-53.0) % MCHC (31.0-37.0) g/dL Neutrophils # (1.3-7.7) k/uL APTT 53.7 H (22.0-30.0) sec Carbon Dioxide 21 L (22-30) mmol/L BUN 37 H (9-20) mg/dL Creatinine 1.97 H (0.66-1.25) mg/dL Glucose 164 H (74-99) mg/dL POC Glucose (mg/dL) 172 H (70-110) mg/dL Calcium 7.8 L (8.4-10.2) mg/dL 09/15/24 09/15/24 09/15/24 Range/Units 04:52 06:52 10:56 WBC 13.2 H (3.8-10.6) k/uL RBC 3.83 L (4.30-5.90) m/uL Hgb 11.5 L (13.0-17.5) gm/dL Hct 37.1 L (39.0-53.0) % MCHC 30.9 L (31.0-37.0) g/dL Neutrophils # 11.4 H (1.3-7.7) k/uL APTT (22.0-30.0) sec Carbon Dioxide (22-30) mmol/L BUN (9-20) mg/dL Creatinine (0.66-1.25) mg/dL Glucose (74-99) mg/dL POC Glucose (mg/dL) 162 H 160 H (70-110) mg/dL Calcium (8.4-10.2) mg/dL Assessment and Plan Assessment: Impression: Gangrenous right big toe Acute non-ST elevation myocardial infarction Severe coronary artery disease as noted on cardiac catheterization Acute kidney injury/ATN secondary to hypotension and contrast media given for his cardiac catheterization Severe ischemic cardiomyopathy Tobacco dependence syndrome, suspect some component of COPD Peripheral vessel occlusive disease with diabetic foot infections Dyslipidemia Hypotension most likely secondary to ischemic cardiomyopathy and LV dysfunction, positive sepsis, I believe septic shock is a consideration but felt to be less likely Acute metabolic encephalopathy Recommendation: Continue to monitor the patient in the ICU Continue daptomycin Continue Unasyn Continue diuretics as ordered per nephrology Continue heparin Continue insulin as per sliding scale coverage Continue beta-blockers Continue aspirin Patient is marginal at best hence we will continue to monitor in the ICU Will continue to follow Time with Patient: Less than 30
[2024-09-15] MEDS: LIDOCAINE 1% INJ 10MG/ML (20 ML MDV) SQ ONE ×2 (12:30→14:03)
[2024-09-15] MEDS: IOPAMIDOL-370 100ML BTL INJ ONE (14:09)
[2024-09-15] MEDS: HEPARIN SODIUM 1,000 UN/ML (10ML VL) IV ONE (14:10)
--- NOTE | 2024-09-15 14:50 | P.PN ---
Subjective Progress Note Date: 09/15/24 Principal diagnosis: Reason for follow-up right first and second toe diabetic foot infection Patient is a 68-year-old male with a past medical history significant for diabetes mellitus osteoarthritis neuropathy patient did have a left big toe diabetic foot infection requiring left big toe amputation subsequently admitted to the hospital for evaluation of the right big and second toe discoloration mostly on the big toe concerning for diabetic foot infection prompted this consultation. Patient is status post cardiac cath on 09/13/2024 with evidence of significant coronary disease involving the LAD SOULEYMANE and circumflex as well as RCA stenosis no intervention On today's evaluation that is 09/15/2024, Patient is hypothermic also noticed to have hypertension and worsening of his kidney function currently undergoing dialysis catheter placement by vascular surgery no vomiting diarrhea and the changes reported by the nursing staff. Patient white count is 13.2 creatinine is 1.97 blood culture has been negative Objective - Vital Signs Vital signs: Vital Signs Temp 93.5 F L 09/15/24 11:00 Pulse 66 09/15/24 11:00 Resp 24 09/15/24 11:00 BP 109/90 09/15/24 11:00 Pulse Ox 98 09/15/24 11:00 FiO2 Intake & Output 09/14/24 09/15/24 09/15/24 18:59 06:59 18:59 Intake Total 1554 700 487.014 Output Total 155 65 150 Balance 1399 635 337.014 Weight 108.4 kg Intake: IV 1150 700 255 Ampicillin-Sulbactam 3 gm 200 In Sodium Chloride 0.9% 100 ml @ 200 mls/hr IVPB Q6HR [facility] Rx#:[id number] Ampicillin-Sulbactam 3 gm 100 100 In Sodium Chloride 0.9% 100 ml @ 200 mls/hr IVPB Q8H [facility] Rx#:[id number] DAPTOmycin 500 mg In 50 Sodium Chloride 0.9% 50 ml @ 100 mls/hr IVPB Q24HR@2100 [facility] Rx#: [id number] Sodium Chloride 0.9% 1, 400 000 ml @ 50 mls/hr IV . Q20H [facility] Rx#:[id number] Sodium Chloride 0.9% 1, 350 550 155 000 ml @ 50 mls/hr IV . Q20H [facility] Rx#:[id number] Sodium Chloride 0.9% 1, 200 000 ml @ 75 mls/hr IV . [id number] [facility] Rx#:[id number] Intake, IV Titration 232.014 Amount Heparin Sod,Pork in 0.45% 232.014 NaCl 25,000 unit In 0.45 % NaCl 1 250ml.bag @ 9.2 UNITS/KG/HR 10.015 mls/hr IV .Q24H [facility] Rx#: [id number] Oral 404 Output: Urine 155 65 150 Other: Voiding Method Indwelling Catheter Indwelling Catheter # Bowel Movements 1 - Exam GENERAL DESCRIPTION: An elderly male lying in bed in no distress RESPIRATORY SYSTEM: Unlabored breathing , decreased breath sounds at bases HEART: S1 S2 regular rate and rhythm , ABDOMEN: Soft , no tenderness EXTREMITIES: Right big toe discoloration swelling no foul-smelling drainage - Labs CBC & Chem 7: 09/15/24 04:52 09/15/24 04:52 Labs: Abnormal Lab Results - Last 24 Hours (Table) 09/14/24 09/14/24 09/14/24 Range/Units 14:51 15:55 20:11 WBC (3.8-10.6) k/uL RBC (4.30-5.90) m/uL Hgb (13.0-17.5) gm/dL Hct (39.0-53.0) % MCHC (31.0-37.0) g/dL Neutrophils # (1.3-7.7) k/uL APTT 42.4 H (22.0-30.0) sec Carbon Dioxide (22-30) mmol/L BUN (9-20) mg/dL Creatinine (0.66-1.25) mg/dL Glucose (74-99) mg/dL POC Glucose (mg/dL) 211 H 170 H (70-110) mg/dL Calcium (8.4-10.2) mg/dL 09/14/24 09/15/24 09/15/24 Range/Units 20:15 04:45 04:52 WBC (3.8-10.6) k/uL RBC (4.30-5.90) m/uL Hgb (13.0-17.5) gm/dL Hct (39.0-53.0) % MCHC (31.0-37.0) g/dL Neutrophils # (1.3-7.7) k/uL APTT 53.7 H (22.0-30.0) sec Carbon Dioxide 21 L (22-30) mmol/L BUN 37 H (9-20) mg/dL Creatinine 1.97 H (0.66-1.25) mg/dL Glucose 164 H (74-99) mg/dL POC Glucose (mg/dL) 172 H (70-110) mg/dL Calcium 7.8 L (8.4-10.2) mg/dL 09/15/24 09/15/24 09/15/24 Range/Units 04:52 06:52 10:56 WBC 13.2 H (3.8-10.6) k/uL RBC 3.83 L (4.30-5.90) m/uL Hgb 11.5 L (13.0-17.5) gm/dL Hct 37.1 L (39.0-53.0) % MCHC 30.9 L (31.0-37.0) g/dL Neutrophils # 11.4 H (1.3-7.7) k/uL APTT (22.0-30.0) sec Carbon Dioxide (22-30) mmol/L BUN (9-20) mg/dL Creatinine (0.66-1.25) mg/dL Glucose (74-99) mg/dL POC Glucose (mg/dL) 162 H 160 H (70-110) mg/dL Calcium (8.4-10.2) mg/dL Assessment and Plan (1) Diabetic foot infection Current Visit: Yes Status: Acute Code(s): E11.628 - TYPE 2 DIABETES MELLITUS WITH OTHER SKIN COMPLICATIONS; L08.9 - LOCAL INFECTION OF THE SKIN AND SUBCUTANEOUS TISSUE, UNSP SNOMED Code(s): 514306620 (2) Diabetic foot ulcer Current Visit: Yes Status: Acute Code(s): E11.621 - TYPE 2 DIABETES MELLITUS WITH FOOT ULCER; L97.509 - NON-PRESSURE CHRONIC ULCER OTH PRT UNSP FOOT W UNSP SEVERITY SNOMED Code(s): 376231964 Plan: 1patient presented to hospital with discoloration to the right first and second toe in this patient who did have a previous history of left diabetic foot infection osteomyelitis requiring amputation of left big toe culture at that time was positive for MRSA and Finegoldia magna 2patient has been evaluated by vascular surgery and planning for amputation of the right first and second toe, per surgery has been put on hold because of patient developing chest pain did have a cardiac cath with evidence of multivessel disease no intervention was done because of his cardiac decompensation 3patient also noticed to have worsening of his creatinine, vancomycin has been discontinued patient had been started on daptomycin to continue along with the Unasyn await debridement and deep culture discussed with the vascular surgeon Dictation was produced using [employer] dictation software. please excuse any grammatical, word or spelling errors. Time with Patient: Less than 30
--- NOTE | 2024-09-15 15:07 | IR ---
EXAMINATION TYPE: IR cvc insert non tunneled DATE OF EXAM: 09/15/2024 2:40 PM COMPARISON: Pre Operative Images if available both CT/MRI or plain film CLINICAL INDICATION: Male, 68 years old with history of RENAL FAILURE; TECHNIQUE: IR cvc insert non tunneled, multiple fluoroscopic images provided for procedure. Total fluoroscopy time: 0.3 minutes Total submitted images to PACS: 59 DAP: 288.35 mGym2 Gycm2 uGym2 cGycm2 or equivalent. FINDINGS: IMPRESSION: 1. Report was generated for administrative purposes only. 2. Please see the operative/procedural note for further details. [facility], , 09/15/2024 3:05 PM
[2024-09-15] MEDS: HEPARIN SODIUM 1,000 UN/ML (10ML VL) MISCELLANE ONE (15:33)
[2024-09-15] MEDS: LIDOCAINE (PF) 10 MG/ML 2 ML VIAL SQ ONE (15:35)
[2024-09-15 15:57] LABS: Glucose,Whole Blood 145 mg/dL (70-110)
--- NOTE | 2024-09-15 21:36 | PCN ---
DATE OF SERVICE 09/15/2024 PROCEDURE NOTE PREOPERATIVE DIAGNOSIS: Acute on chronic renal failure. POSTOPERATIVE DIAGNOSIS: Acute on chronic renal failure. PROCEDURE PERFORMED: Ultrasound-guided 30 cm dialysis catheter, right femoral approach. DESCRIPTION OF PROCEDURE: The patient was brought to the labor trainer. Right groin was prepped and drapes applied in the usual sterile manner. 1% lidocaine plain was infiltrated in the right groin area. Ultrasound-guided micropuncture introduced into the right femoral vein. Micropuncture guidewire was passed and 5-Kiswahili sheath advanced on top of the guidewire. Then, we passed a regular guidewire which was parked in the inferior vena cava. After that, dilator was advanced on the top of the guidewire. Then, we placed a 30 cm dialysis catheter on top of the guidewire. The guide was removed, flushed with heparin saline and hep-locked, secured with 3-0 nylon. The patient tolerated the procedure well. The patient is going back to the intensive care unit. MMODL / IJN: [id number] / CHASIDY
--- NOTE | 2024-09-15 22:41 | P.PN ---
Subjective Progress Note Date: 09/15/24 History of Present Illness: The patient is a 68-year-old male with known history of diabetes, diabetic foot, prior amputation of toes on the left side who presented with infection of the right big toe and has been evaluated for amputation. Cardiology consultation was requested because of episodes of chest discomfort. The patient has been seen by Dr. Frias in the past. He had prior echocardiogram that suggested cardiomyopathy. Today he had episode of chest discomfort with some dyspnea. At the time of my evaluation his discomfort is better. He denies any palpitations or dizziness. He continues to be in sinus mechanism. He is limited in his physical activity. He has peripheral edema but no clear PND nor orthopnea. The history of hypertension, hyperlipidemia and chronic tobacco use. He had a limited echocardiogram in May that was reported showing an ejection fraction of 35 to 40%. And had mild troponin elevation. Medications: At home he is on Lasix 20 mg daily, spironolactone 25 mg daily, insulin, Flomax 09/13 Patient seen and examined today on the cardiac stepdown unit. Blood pressure this morning at 90/55 and Lasix held and patient started on IV fluids 0.9 normal saline at 75 cc/h. Creatinine is 1.23. Patient is scheduled for cardiac catheterization today with Dr. Frias. 09/14/2024 Patient is not oliguric ATN with minimal urine output, not responding to IV fl uids or diuretic therapy. His echocardiogram showed an EF of 30 to 35% with inferior wall hypokinesia. His heart catheter yesterday showed multivessel CAD with severe disease involving LAD. He appears lethargic however denies any chest pain chest pressure 09/15/2024 Patient continues to be oliguric. He did respond to IV Lasix 80 mg with minimal urine output of around 100 cc. Patient got temporary dialysis catheter placement today in anticipation of hemodialysis as patient's kidney function and urine output fails to improve. Physical Examination: Head: Normocephalic. Eyes: Sclerae nonicteric. Neck: No significant JVD Lungs: Poor respiratory effort, mild crackles audible in bilateral bases Heart: Regular rate and rhythm, S1-S2, no S3, no rub. Systolic ejection murmur. Abdomen: Soft nontender, positive bowel sounds no organomegaly. Extremities: +2 edema, gangrenous right toe with amputation on the left side. Impression: 1. NSTEMI 2. Ischemic cardiomyopathy 3. Oliguric ATN 4. Gangrenous toe 5. History of diabetes 6. Chronic tobacco use 7. Prior history of hypertension 8. History of hyperlipidemia Plan: Give additional IV Lasix 80 mg to see if it helps the urine output. Patient is volume overloaded. Continue IV heparin. Continue aspirin, statin, Continue the addition of statin and low-dose beta-shirin Continue to monitor renal function and urine output. If planning hemodialysis, consider Impella assisted LAD PCI with Dr. Frias. Antibiotic regimen and sepsis management as per infectious disease team And ICU team Objective - Vital Signs Vital signs: Vital Signs Temp 93.5 F L 09/15/24 18:30 Pulse 67 09/15/24 19:00 Resp 30 H 09/15/24 19:00 BP 107/58 09/15/24 19:00 Pulse Ox 99 09/15/24 19:00 FiO2 Intake & Output 09/15/24 09/15/24 09/16/24 06:59 18:59 06:59 Intake Total 700 899.942 400 Output Total 65 515 40 Balance 635 384.942 360 Weight 108.4 kg Intake: IV 700 605 150 Ampicillin-Sulbactam 3 gm 100 100 100 In Sodium Chloride 0.9% 100 ml @ 200 mls/hr IVPB Q8H [facility] Rx#:[id number] DAPTOmycin 500 mg In 50 Sodium Chloride 0.9% 50 ml @ 100 mls/hr IVPB Q24HR@2100 [facility] Rx#: [id number] Sodium Chloride 0.9% 1, 550 505 50 000 ml @ 50 mls/hr IV . Q20H [facility] Rx#:[id number] Intake, IV Titration 294.942 Amount Heparin Sod,Pork in 0.45% 294.942 NaCl 25,000 unit In 0.45 % NaCl 1 250ml.bag @ 9.2 UNITS/KG/HR 10.015 mls/hr IV .Q24H [facility] Rx#: [id number] Oral 250 Output: Urine 65 515 40 Other: Voiding Method Indwelling Catheter Indwelling Catheter # Bowel Movements 1 - Labs CBC & Chem 7: 09/15/24 04:52 09/15/24 15:39 Labs: Abnormal Lab Results - Last 24 Hours (Table) 09/15/24 09/15/24 09/15/24 Range/Units 04:45 04:52 04:52 WBC 13.2 H (3.8-10.6) k/uL RBC 3.83 L (4.30-5.90) m/uL Hgb 11.5 L (13.0-17.5) gm/dL Hct 37.1 L (39.0-53.0) % MCHC 30.9 L (31.0-37.0) g/dL Neutrophils # 11.4 H (1.3-7.7) k/uL APTT 53.7 H (22.0-30.0) sec Carbon Dioxide 21 L (22-30) mmol/L BUN 37 H (9-20) mg/dL Creatinine 1.97 H (0.66-1.25) mg/dL Glucose 164 H (74-99) mg/dL POC Glucose (mg/dL) (70-110) mg/dL Calcium 7.8 L (8.4-10.2) mg/dL 09/15/24 09/15/24 09/15/24 Range/Units 06:52 10:56 15:55 WBC (3.8-10.6) k/uL RBC (4.30-5.90) m/uL Hgb (13.0-17.5) gm/dL Hct (39.0-53.0) % MCHC (31.0-37.0) g/dL Neutrophils # (1.3-7.7) k/uL APTT (22.0-30.0) sec Carbon Dioxide (22-30) mmol/L BUN (9-20) mg/dL Creatinine (0.66-1.25) mg/dL Glucose (74-99) mg/dL POC Glucose (mg/dL) 162 H 160 H 145 H (70-110) mg/dL Calcium (8.4-10.2) mg/dL Microbiology - Last 24 Hours (Table) 09/10/24 06:30 Blood Culture - Final Blood
--- NOTE | 2024-09-15 22:42 | CONS ---
DATE OF CONSULTATION: 09/15/2024 This is a 68-year-old gentleman, consulted for placement of a dialysis catheter. The patient has a history of coronary artery disease. The patient recently had heart catheterization and angioplasty and stent placement. The patient has history of peripheral vascular disease. The patient is known to me from the past. We did the left big toe operation in the past, now the patient came with some right big toe dry wound, on the dorsal aspect of the big toe with some mild redness. No fever or chills present. PHYSICAL EXAMINATION: GENERAL: The patient is very short of breath. The patient was seen in the intensive care unit. CHEST: Has bilateral crackles. HEART: First and second sounds present. ABDOMEN: Soft. Nontender. EXTREMITIES: Femorals are 1+ bilaterally. The patient has some right big toe ischemic changes and dry scab noted on the dorsal aspect of the big toe. The patient was scheduled to have a big toe amputation because of the coronary artery disease and renal failure. We are holding it and plan is placement of dialysis catheter. Risks and complications discussed. MMODL / IJN: [id number] / MTDD
[2024-09-15 23:02] LABS: Glucose,Whole Blood 151 mg/dL (70-110)
[2024-09-16] MEDS: HALOPERIDOL LACTATE 5 MG/ML 1 ML VIAL IVP PRN (02:49)
[2024-09-16 05:07] LABS: Basophils % (A) 0 %; Eosinophils % (A) 0 %; HCT 34.4 % (39.0-53.0); HGB 10.9 gm/dL (13.0-17.5); Hypochromasia Moderate; Lymphocytes # (A) 0.5 k/uL (1.0-4.8); Lymphocytes % (A) 6 %; MCH 30.7 pg (25.0-35.0); MCHC 31.6 g/dL (31.0-37.0); MCV 97.1 fL (80.0-100.0); Mean Platelet Volume 9.9; Monocytes # (A) 0.4 k/uL (0-1.0); Monocytes % (A) 5 %; Neutrophils # (A) 8.2 k/uL (1.3-7.7); Neutrophils % (A) 89 %; Platelet Count 193 k/uL (150-450); RBC 3.54 m/uL (4.30-5.90); RDW 15.4 % (11.5-15.5); WBC 9.3 k/uL (3.8-10.6)
[2024-09-16 05:56] LABS: African American GFR (CKD) 36 (>60 ml/min/1.73 sqM); Anion Gap 18 mmol/L; Blood Urea Nitrogen 38 mg/dL (9-20); Carbon Dioxide 14 mmol/L (22-30); Chloride 108 mmol/L (98-107); Glucose 169 mg/dL (74-99); Non-African American GFR(CKD) 31 (>60 ml/min/1.73 sqM); Potassium 3.9 mmol/L (3.5-5.1); Sodium 140 mmol/L (137-145)
[2024-09-16 06:49] LABS: Glucose,Whole Blood 169 mg/dL (70-110)
[2024-09-16] MEDS: POTASSIUM CHLORIDE 10 MEQ in WATER FOR INJECTION 1 100ML.BAG IVPB SCH (06:52)
--- NOTE | 2024-09-16 07:06 | XR ---
EXAMINATION TYPE: XR chest 1V portable DATE OF EXAM: 09/16/2024 COMPARISON: 09/12/2024 CLINICAL INDICATION: Male, 68 years old with history of CHF; , TECHNIQUE: XR chest 1V portable views of the chest. FINDINGS: A diffuse interstitial pattern with bilateral consolidation and pleural effusion progressed from prio r exam. Heart size is enlarged. No sizable pneumothorax. Osseous structures are stable. IMPRESSION: 1. Diffuse pleural-parenchymal changes are progressed correlate for diffuse CHF with pulmonary edema. Diffuse pneumonia or ARDS also in the differential diagnosis. [facility], , 09/16/2024 7:03 AM
[2024-09-16] MEDS: PANTOPRAZOLE 40 MG/10 ML VIAL IVP SCH (10:20)
[2024-09-16 11:34] LABS: Glucose,Whole Blood 174 mg/dL (70-110)
--- NOTE | 2024-09-16 13:04 | P.PN ---
Subjective Progress Note Date: 09/16/24 Principal diagnosis: Sepsis. This is a 68-year-old white male, known history of type 2 diabetes, peripheral vessel occlusive disease secondary to diabetes, patient was admitted on 09/10/2014, presented to the ER with right toe infection. The right big toe has been getting increasingly painful, swollen, red and tender. 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 Seen in the ER, foot x-ray showed moderate to severe soft tissue swelling, patient was admitted with diabetic foot infection. Seen by infectious disease, placed on antibiotics, patient was also seen by vascular surgery and cardiology for elevated troponin. Patient underwent cardiac catheterization today, he was found to have 90% proximal mid LAD stenosis 80% diagonal 190% OM1 100% mid circumflex and 99% mid RCA. Patient was also noted to have slightly elevated left-sided filling pressures, patient was noted to be hypotensive in the [employer], placed on norepinephrine, admitted to the ICU because of hypotension and this consult was initiated. During my evaluation, patient had no shortness of breath, no cough, no wheezing, he had some vague chest discomfort. Patient is being considered for possible Impella protected PCI of LAD and RCA down the line, concerned about his renal status and contrast media. Labs on this patient today showed leukocytosis with WBC count of 14.2 hemoglobin is 11 electrolytes are normal BUN is 26 creatinine 1.23. Patient has been seen by infectious disease on the case, presently on Unasyn 3 g every 6 hours. Preliminary report on blood cultures since admission has been negative. Pulmonary trejo, patient has been a smoker over the years, he had at least a 14-oony-fjak smoking history since age 13. Has not been on any inhalers and has not been diagnosed with COPD. Patient was seen today on 09/14/2023, remains in the ICU, patient has been seen by many consultants including cardiology, infectious disease, nephrology, patient is developing worsening renal failure picture, seen by nephrology, recommended Lasix, and bicarb. Patient is on Unasyn for his big toe infection. Patient has leukocytosis with WBC of 16.9 hemoglobin 10.9 bicarb is 17 BUN is 30 creatinine is up to 1.62. Patient is off norepinephrine, not requiring any pressors, he had norepinephrine last night shortly after he came back from the cardiac catheterization and he is now hemodynamically stable off norepinephrine. Pulmonary trejo no cough no wheezing no shortness of breath his acute kidney injury felt to be related to hypotension and contrast media his initial presentation was a presentation of non-ST elevation myocardial infarction and he was found to have significant triple-vessel coronary artery disease. Chest x- ray did not show evidence of fluid overload patient did receive Lasix and he remains on Lasix as recommended by nephrology. Patient was seen today on 09/15/2023, patient remains in the ICU, confused, pulling his IV lines, remains on Unasyn and daptomycin, remains on Lasix, patient developed worsening renal failure, that is being addressed by nephrology. No chest x-ray was done today, however he is scheduled to have a chest x-ray in a.m., presently on room air, does not seem to be in any distress, but is intermittently confused, requiring a sitter to keep a close watch on the patient. WBC count is 13.2 hemoglobin 11.5, electrolytes are normal BUN is 37, creatinine is up to 1.97. Patient is being followed by many consultants including cardiology, infectious disease, and nephrology. Progress note dated September 16, 2024. This the patient was admitted on September 10. He came in initially with diabetic foot infection. He had a heart catheterization on September 12, which revealed significant coronary artery disease. He came to the ICU on the , because of hypotension. The patient is seen today in room 264. He is getting hemodialysis. He is on 4-1/2 L of oxygen. He is getting heparin via weight- based protocol, and saline at 50 cc an hour. The plan for him is an Impella protected PCI, by Dr. Frias, sometime this week possibly. Currently, white count 9.3, hemoglobin 10.9, hematocrit 34.4, platelet count 193,000. PTT is 55.2. Sodium 140, potassium 3.9, chlorides 108, CO2 14 anion gap 18, BUN 38, creatinine 2.12. Calcium is 8. Glucose is 174. Chest x-ray is consistent with pulmonary edema. Objective - Vital Signs Vital signs: Vital Signs Temp 98.9 F 09/16/24 08:00 Pulse 80 09/16/24 11:00 Resp 36 H 09/16/24 11:00 BP 133/70 09/16/24 11:00 Pulse Ox 97 09/16/24 11:00 FiO2 Intake & Output 09/15/24 09/16/24 09/16/24 18:59 06:59 18:59 Intake Total 809.091 4027 350 Output Total 515 221 110 Balance 384.942 829 240 Intake: IV 605 800 350 Ampicillin-Sulbactam 3 gm 100 200 In Sodium Chloride 0.9% 100 ml @ 200 mls/hr IVPB Q8H [facility] Rx#:[id number] DAPTOmycin 500 mg In 50 Sodium Chloride 0.9% 50 ml @ 100 mls/hr IVPB Q24HR@2100 [facility] Rx#: [id number] Potassium Chloride 10 meq 100 In Water For Injection 1 100ml.bag @ 100 mls/hr IVPB Q1H [facility] Rx#: [id number] Sodium Chloride 0.9% 1, 505 550 250 000 ml @ 50 mls/hr IV . Q20H [facility] Rx#:[id number] Intake, IV Titration 294.942 Amount Heparin Sod,Pork in 0.45% 294.942 NaCl 25,000 unit In 0.45 % NaCl 1 250ml.bag @ 9.2 UNITS/KG/HR 10.015 mls/hr IV .Q24H [facility] Rx#: [id number] Oral 250 Output: Urine 515 221 110 Other: Voiding Method Indwelling Catheter Indwelling Catheter Indwelling Catheter - Exam No acute distress, oriented 3. HEENT examination is grossly unremarkable. Mucous membranes are moist. No oral lesions. Neck supple. Full range of motion. No adenopathy thyromegaly or neck vein distention. Cardiovascular examination reveals regular rhythm rate. S1-S2 normal. No S3 or S4. Soft systolic murmur is noted. Lungs reveal scattered rhonchi and crackles. Breath sounds equal. No wheezes. Abdomen soft bowel sounds are heard. No masses or tenderness. Extremities are intact. No cyanosis or clubbing. There is lower extremity edema. Gangrenous changes noted in the right big toe. Skin is without rash or lesion. Neurologic examination is brief but nonfocal. - Labs CBC & Chem 7: 09/16/24 04:48 09/16/24 04:48 Labs: Abnormal Lab Results - Last 24 Hours (Table) 09/15/24 09/15/24 09/16/24 Range/Units 15:55 23:00 04:48 RBC (4.30-5.90) m/uL Hgb (13.0-17.5) gm/dL Hct (39.0-53.0) % Neutrophils # (1.3-7.7) k/uL Lymphocytes # (1.0-4.8) k/uL APTT (22.0-30.0) sec Chloride 108 H (98-107) mmol/L Carbon Dioxide 14 L (22-30) mmol/L BUN 38 H (9-20) mg/dL Creatinine 2.12 H (0.66-1.25) mg/dL Glucose 169 H (74-99) mg/dL POC Glucose (mg/dL) 145 H 151 H (70-110) mg/dL Calcium 8.0 L (8.4-10.2) mg/dL 09/16/24 09/16/24 09/16/24 Range/Units 04:48 04:48 06:47 RBC 3.54 L (4.30-5.90) m/uL Hgb 10.9 L (13.0-17.5) gm/dL Hct 34.4 L (39.0-53.0) % Neutrophils # 8.2 H (1.3-7.7) k/uL Lymphocytes # 0.5 L (1.0-4.8) k/uL APTT 55.2 H (22.0-30.0) sec Chloride (98-107) mmol/L Carbon Dioxide (22-30) mmol/L BUN (9-20) mg/dL Creatinine (0.66-1.25) mg/dL Glucose (74-99) mg/dL POC Glucose (mg/dL) 169 H (70-110) mg/dL Calcium (8.4-10.2) mg/dL 09/16/24 Range/Units 11:33 RBC (4.30-5.90) m/uL Hgb (13.0-17.5) gm/dL Hct (39.0-53.0) % Neutrophils # (1.3-7.7) k/uL Lymphocytes # (1.0-4.8) k/uL APTT (22.0-30.0) sec Chloride (98-107) mmol/L Carbon Dioxide (22-30) mmol/L BUN (9-20) mg/dL Creatinine (0.66-1.25) mg/dL Glucose (74-99) mg/dL POC Glucose (mg/dL) 174 H (70-110) mg/dL Calcium (8.4-10.2) mg/dL Microbiology - Last 24 Hours (Table) 09/10/24 06:30 Blood Culture - Final Blood Assessment and Plan Assessment: Gangrenous right big toe. Acute non-ST segment elevation myocardial infarction. Severe coronary artery disease. Acute kidney injury/ATN, secondary to hypotension, and contrast. Severe ischemic cardiomyopathy. Tobacco dependence syndrome. Probable COPD. Peripheral vascular occlusive disease. Hyperlipidemia. Hypotension, likely secondary to cardiomyopathy, and sepsis. Metabolic encephalopathy. Plan: Plan dated September 24, 2024. The patient is seen today in room 264. Currently, he is on oxygen at 4.5 L by nasal cannula. He is getting IV heparin via weight-based protocol, and saline at 50 cc an hour. The patient was admitted on 10 September, and, came to the intensive care unit on the , where he had a heart catheterization, showing coronary disease, and hypotension. Labs, x-rays, and all medications are reviewed. I did speak to cardiology, and they wanted to proceed with a Impella protected PCI. The patient may end up on mechanical ventilation, although BiPAP could be tried prior. Currently, the patient is on appropriate medications, including, Unasyn, and daptomycin. Infectious diseases is following, as is nephrology. Time with Patient: Greater than 30
--- NOTE | 2024-09-16 13:14 | PN ---
PROGRESS NOTE DATE OF SERVICE: 09/16/2024 SUBJECTIVE: Roberto is a 68-year-old gentleman, who has complex and multiple medical problems whom I am seeing for the first time on September 16. He has history of diabetes, diabetic foot infection, prior amputation on the left side with gangrene and infection on the right big toe that is awaiting amputation. In that Cardiology was involved in the care because of chest pain. The patient has history of cardiomyopathy. The patient developed nonoliguric renal failure. His cardiac catheterization revealed multivessel CAD. This morning, the patient appears confused and not very responsive. He has renal failure with a BUN of 38 and creatinine of 2.1. Blood pressure actually appears normal at 133/70. He is going to be dialyzed today. Hopefully with dialysis, his renal functions would improve. Dr. Frias talked about doing an Impella device. I am going to talk to him and see if we can hold off on this at this time and wait and see how dialysis will help the patient. CURRENT MEDICATIONS: Include, 1. Aspirin. 2. Lipitor. 3. Intravenous heparin. OBJECTIVE: VITAL SIGNS: Heart rate is 80 beats per minute, respiratory rate is 36, blood pressure is 133/70, O2 saturation is 97%. CHEST: Reveals diminished air entry at the bases. HEART: Reveals first and second heart sounds and a systolic murmur at the apex. ABDOMEN: Soft. EXTREMITIES: Reveals bilateral pitting edema. LABORATORY DATA: Labs show a hemoglobin of 10.9, platelet count is 193. Potassium is 3.9, BUN is 38, and creatinine is 2.1. ASSESSMENT: 1. Acute renal failure. 2. Ischemic cardiomyopathy with multivessel coronary artery disease. 3. Diabetic foot infection. 4. Renal failure. PLAN: The patient will be dialyzed today. MMODL / IJN: [id number] /
[2024-09-16] MEDS: HEPARIN SODIUM 1,000 UN/ML (10ML VL) IVP ONE (14:13)
--- NOTE | 2024-09-16 15:01 | P.PN ---
Subjective Progress Note Date: 09/16/24 68 year old M with PMH of DM with neuropathy, BPH presented to the ED for right foot that has been getting increasingly painful, swollen, red, tender. In the ED he underwent extensive evaluation. BP 117/69, HR 103, T 98.1F, RR 20, 95% on RA. CBC, Coag panel, CMP significant for WBC 15.4, RBC 3.85, Hg 11.7, Hct 36, Na 136, BUN 23, glu 196, alk phos 22.1. Lactic acid 1.4. Mag 2.1. CRP 8.2. A1c 8.1. Foot XR showed moderate to severe diffuse soft tissue swelling with persistent linear 6 mm soft tissue foreign body at the level of 2nd proximal phalanx. Patient was started on Vancomycin and Zosyn and admitted for further workup and management. ID consulted recommended Vascular Sx consult. Antibiotics switched to Vancomycin and Unasyn by ID. Vascular Sx recommended amputation of the right big toe which was initially scheduled for 09/12. Patient reports shortness of breath on 09/11, CXR showed cardiomegaly and pulmonary vascular congestion for which he was started on Lasix IV. He developed chest pain on 09/12, Troponin 0.045, 0.043, started on Heparin drip and Cardiology consulted. He underwent cardiac cath on 09/13 which showed 90% proximal mid LAD stenosis, diagonal one 80%, OM1 90%, mid circumflex 100%, 99% mid RCA stenosis. He was hypotensive during the procedure which resulted in transfer to ICU on Levophed. Levophed was weaned off on 09/14. Repeat Echo showed EF 30-35% with inferior wall hypokinesis, moderate MR. Nephrology consulted for low urine output and SKYLA. No improvement in urine output with Lasix IV challenge. HD catheter inserted by Vascular on 09/15 for hemodialysis. ID switched Vancomycin for Daptomycin on 09/14. 09/16 Patient was seen and examined. Confused. Urine output of 736 cc over the past 24H despite Lasix 80 mg IV. HD catheter placed by Vascular yesterday, plans for HD today. Discussed with Dr. Marroquin, plans for Impella assisted PCI hopefully today. On heparin drip at 9.2 units/kg/hr. CBC, Coag panel, BMP significant for RBC 3.54, Hg 10.9, Hct 34.4, APTT 55.2, Cl 108, bicarb 14, BUN 38, Cr 2.12, glu 169, Ca 8. Antibiotics include Daptomycin and Unasyn. CXR findings consistent with volume overload. General: lethargic, appears at stated age Derm: warm, dry Head: atraumatic, normocephalic, symmetric Eyes: EOMI, no lid lag, anicteric sclera Mouth: no lip lesion, mucus membranes moist Cardiovascular: S1S2 reg, no murmur Lungs: Crackles at the bases bilateral, no rhonchi, no rales, tachypneic Ext: no gross muscle atrophy, 1-2+ pitting LE edema, no contractures Neuro: no focal neuro deficits Psych: Confused, Lethargic Based on my assessment of this patient, this patient meets a high complexity level of care. Shock secondary to sedation used during cardiac cath versus cardiogenic: Levophed weaned off. Repeat Echo shows EF 30-35%. Consider dobutamine drip if unable to maintain BP. Hopeful plans on Impella assisted PCI. Cardiology on board. SKYLA on CKD with metabolic acidosis: Likely secondary to hypotension and contrast used during cardiac cath. Monitor daily renal function. Renal US no hydro. Plans for HD today. Nephrology on board. NSTEMI: ASA 81 mg PO QD. Lipitor 40 mg PO QD. Heparin drip, monitor APTT. Cardiac cath as above. Telemetry monitoring. Hopeful plans on Impella assisted PCI when renal function improves. Cardiology on board. Acute hypoxic respiratory failure secondary to systolic CHF exacerbation: Echo 06/20 shows EF 35-40%. Lasix 40 mg IV x 1 on 09/11. Lasix 60 mg IV x 1 on 09/14. Lasix 80 mg IV x 1 on 09/15. Aldactone and Metoprolol discontinued due to hypotension. Strict intake and outtake. Daily weights. Sepsis secondary to cellulitis versus osteomyelitis of the right great toe: Continue Unasyn 3g IV TID, Daptomycin 500 mg IV QD. ID and Vascular on board. Plans for amputation when stable with Vascular. Diabetes type 2 with diabetic neuropathy: Continue ISS + Accuchecks ACHS with hypoglycemic precautions. BPH: Flomax 0.4 mg PO QHS. CODE STATUS: FULL CODE DVT Prophylaxis: Heparin drip. GI Prophylaxis: Protonix IV. Designated medical POA if patient is not able to make medical decisions for themselves: Son. I have reviewed the following planning consultant notes: Pulmonary, Cardiology. I have reviewed the results of the following tests: CBC, BMP, Coag panel I have ordered the following tests: CBC, Coag panel and BMP in the AM. I have discussed the care of this patient with the following independent historian: SONYA. I have independently interpreted the following test below: CXR. I have discussed the management of this patient with the following physician: Dr. Marroquin and Madie AMARAL. Objective - Vital Signs Vital signs: Vital Signs Temp 98.9 F 09/16/24 08:00 Pulse 80 09/16/24 08:00 Resp 37 H 09/16/24 08:00 BP 120/71 09/16/24 08:00 Pulse Ox 95 09/16/24 08:00 FiO2 Intake & Output 09/15/24 09/16/24 09/16/24 18:59 06:59 18:59 Intake Total 173.971 1243 200 Output Total 515 221 35 Balance 384.942 829 165 Intake: IV 605 800 200 Ampicillin-Sulbactam 3 gm 100 200 In Sodium Chloride 0.9% 100 ml @ 200 mls/hr IVPB Q8H [facility] Rx#:[id number] DAPTOmycin 500 mg In 50 Sodium Chloride 0.9% 50 ml @ 100 mls/hr IVPB Q24HR@2100 [facility] Rx#: [id number] Potassium Chloride 10 meq 100 In Water For Injection 1 100ml.bag @ 100 mls/hr IVPB Q1H [facility] Rx#: [id number] Sodium Chloride 0.9% 1, 505 550 100 000 ml @ 50 mls/hr IV . Q20H [facility] Rx#:[id number] Intake, IV Titration 294.942 Amount Heparin Sod,Pork in 0.45% 294.942 NaCl 25,000 unit In 0.45 % NaCl 1 250ml.bag @ 9.2 UNITS/KG/HR 10.015 mls/hr IV .Q24H [facility] Rx#: [id number] Oral 250 Output: Urine 515 221 35 Other: Voiding Method Indwelling Catheter Indwelling Catheter - Labs CBC & Chem 7: 09/16/24 04:48 09/16/24 04:48 Labs: Abnormal Lab Results - Last 24 Hours (Table) 09/15/24 09/15/24 09/15/24 Range/Units 10:56 15:55 23:00 RBC (4.30-5.90) m/uL Hgb (13.0-17.5) gm/dL Hct (39.0-53.0) % Neutrophils # (1.3-7.7) k/uL Lymphocytes # (1.0-4.8) k/uL APTT (22.0-30.0) sec Chloride (98-107) mmol/L Carbon Dioxide (22-30) mmol/L BUN (9-20) mg/dL Creatinine (0.66-1.25) mg/dL Glucose (74-99) mg/dL POC Glucose (mg/dL) 160 H 145 H 151 H (70-110) mg/dL Calcium (8.4-10.2) mg/dL 09/16/24 09/16/24 09/16/24 Range/Units 04:48 04:48 04:48 RBC 3.54 L (4.30-5.90) m/uL Hgb 10.9 L (13.0-17.5) gm/dL Hct 34.4 L (39.0-53.0) % Neutrophils # 8.2 H (1.3-7.7) k/uL Lymphocytes # 0.5 L (1.0-4.8) k/uL APTT 55.2 H (22.0-30.0) sec Chloride 108 H (98-107) mmol/L Carbon Dioxide 14 L (22-30) mmol/L BUN 38 H (9-20) mg/dL Creatinine 2.12 H (0.66-1.25) mg/dL Glucose 169 H (74-99) mg/dL POC Glucose (mg/dL) (70-110) mg/dL Calcium 8.0 L (8.4-10.2) mg/dL 09/16/24 Range/Units 06:47 RBC (4.30-5.90) m/uL Hgb (13.0-17.5) gm/dL Hct (39.0-53.0) % Neutrophils # (1.3-7.7) k/uL Lymphocytes # (1.0-4.8) k/uL APTT (22.0-30.0) sec Chloride (98-107) mmol/L Carbon Dioxide (22-30) mmol/L BUN (9-20) mg/dL Creatinine (0.66-1.25) mg/dL Glucose (74-99) mg/dL POC Glucose (mg/dL) 169 H (70-110) mg/dL Calcium (8.4-10.2) mg/dL Microbiology - Last 24 Hours (Table) 09/10/24 06:30 Blood Culture - Final Blood
--- NOTE | 2024-09-16 15:07 | P.PN ---
Subjective Patient is seen in follow-up for acute kidney injury. Creatinine 2.12 today. Remains oliguric. Scheduled for Impella assisted LAD PCI today. Currently on BiPAP. Started on dialysis today. Vital signs are stable. General: No acute distress. HEENT: Head exam is unremarkable. On BiPAP. LUNGS: No audible rhonchi or wheezes. HEART: Rate and Rhythm are regular. ABDOMEN: Nontender. EXTREMITITES: 2+ edema. Objective - Vital Signs Vital signs: Vital Signs Temp 98.9 F 09/16/24 08:00 Pulse 73 09/16/24 14:00 Resp 32 H 09/16/24 14:00 BP 104/66 09/16/24 14:00 Pulse Ox 95 09/16/24 14:00 FiO2 50 09/16/24 13:38 Intake & Output 09/15/24 09/16/24 09/16/24 18:59 06:59 18:59 Intake Total 359.650 9771 450 Output Total 515 221 130 Balance 384.942 829 320 Intake: IV 605 800 450 Ampicillin-Sulbactam 3 gm 100 200 In Sodium Chloride 0.9% 100 ml @ 200 mls/hr IVPB Q8H [facility] Rx#:[id number] DAPTOmycin 500 mg In 50 Sodium Chloride 0.9% 50 ml @ 100 mls/hr IVPB Q24HR@2100 [facility] Rx#: [id number] Potassium Chloride 10 meq 100 In Water For Injection 1 100ml.bag @ 100 mls/hr IVPB Q1H [facility] Rx#: [id number] Sodium Chloride 0.9% 1, 505 550 350 000 ml @ 50 mls/hr IV . Q20H [facility] Rx#:[id number] Intake, IV Titration 294.942 Amount Heparin Sod,Pork in 0.45% 294.942 NaCl 25,000 unit In 0.45 % NaCl 1 250ml.bag @ 9.2 UNITS/KG/HR 10.015 mls/hr IV .Q24H [facility] Rx#: [id number] Oral 250 Output: Urine 515 221 130 Other: Voiding Method Indwelling Catheter Indwelling Catheter Indwelling Catheter - Labs CBC & Chem 7: 09/16/24 04:48 09/16/24 04:48 Labs: Abnormal Lab Results - Last 24 Hours (Table) 09/15/24 09/15/24 09/16/24 Range/Units 15:55 23:00 04:48 RBC (4.30-5.90) m/uL Hgb (13.0-17.5) gm/dL Hct (39.0-53.0) % Neutrophils # (1.3-7.7) k/uL Lymphocytes # (1.0-4.8) k/uL APTT (22.0-30.0) sec Chloride 108 H (98-107) mmol/L Carbon Dioxide 14 L (22-30) mmol/L BUN 38 H (9-20) mg/dL Creatinine 2.12 H (0.66-1.25) mg/dL Glucose 169 H (74-99) mg/dL POC Glucose (mg/dL) 145 H 151 H (70-110) mg/dL Calcium 8.0 L (8.4-10.2) mg/dL 09/16/24 09/16/24 09/16/24 Range/Units 04:48 04:48 06:47 RBC 3.54 L (4.30-5.90) m/uL Hgb 10.9 L (13.0-17.5) gm/dL Hct 34.4 L (39.0-53.0) % Neutrophils # 8.2 H (1.3-7.7) k/uL Lymphocytes # 0.5 L (1.0-4.8) k/uL APTT 55.2 H (22.0-30.0) sec Chloride (98-107) mmol/L Carbon Dioxide (22-30) mmol/L BUN (9-20) mg/dL Creatinine (0.66-1.25) mg/dL Glucose (74-99) mg/dL POC Glucose (mg/dL) 169 H (70-110) mg/dL Calcium (8.4-10.2) mg/dL 09/16/24 Range/Units 11:33 RBC (4.30-5.90) m/uL Hgb (13.0-17.5) gm/dL Hct (39.0-53.0) % Neutrophils # (1.3-7.7) k/uL Lymphocytes # (1.0-4.8) k/uL APTT (22.0-30.0) sec Chloride (98-107) mmol/L Carbon Dioxide (22-30) mmol/L BUN (9-20) mg/dL Creatinine (0.66-1.25) mg/dL Glucose (74-99) mg/dL POC Glucose (mg/dL) 174 H (70-110) mg/dL Calcium (8.4-10.2) mg/dL Microbiology - Last 24 Hours (Table) 09/10/24 06:30 Blood Culture - Final Blood Assessment and Plan Plan: Assessment: 1. Acute kidney injury secondary to ATN secondary to hypotension and contrast associated acute kidney injury. Baseline creatinine near 1 and is 2.1 to today. Oliguric. No hydronephrosis noted on renal ultrasound. Started on hemodialysis September 16, 2024 via femoral catheter due to volume overload and oliguria. 2. Right foot toe infection on antibiotics. 3. NSTEMI status post cardiac catheterization on September 13, 2024 which showed triple-vessel disease. Scheduled for Impella assisted LAD PCI today. 4. Diabetes mellitus. 5. Septic shock, now off Levophed. 6. Metabolic acidosis secondary to acute kidney injury and IV fluids. Expect improvement postdialysis. 7. Volume overload. 8. Cardiomyopathy with ejection fraction of 30 to 35% with moderate mitral regurgitation. Plan: Currently seen while undergoing hemodialysis. Second treatment tomorrow. Remains oliguric despite IV Lasix. Avoid nephrotoxins. Continue to monitor renal function and urine output.
[2024-09-16] MEDS: LIDOCAINE 1% INJ 10MG/ML (20 ML MDV) SQ ONE (15:46)
[2024-09-16 16:22] LABS: O2 Sat Blood Gas 58.2 %
[2024-09-16 16:26] LABS: O2 Sat Blood Gas 52.9 %
[2024-09-16 16:28] LABS: O2 Sat Blood Gas 91.4 %
[2024-09-16] MEDS: HEPARIN SODIUM,PORCINE 10,000 UNIT in SODIUM CHLORIDE 0.9% 1,000 ML IRRIGATION ONE (16:35)
[2024-09-16] MEDS: IOPAMIDOL-370 100ML BTL INJ ONE (16:35)
[2024-09-16] MEDS: IV FLUID CONTINUATION 600 ML IV ONE (16:35)
[2024-09-16] MEDS: HEPARIN SODIUM,PORCINE (1 ML) 2,500 UNIT in SODIUM CHLORIDE 0.9% 250 ML IRRIGATION ONE (16:36)
[2024-09-16] MEDS ORDERED: HEPARIN SODIUM 1,000 UN/ML (10ML VL) IV PRN (16:39)
[2024-09-16] MEDS ORDERED: HEPARIN SOD,PORK IN 0.45% NACL 25,000 UNIT in 0.45% NACL 1 250ML.BAG IV SCH (16:45)
[2024-09-16] MEDS: SODIUM BICARB (1 MEQ/ML) 12.5 ML in DEXTROSE 5% IN WATER 500 ML IV SCH (18:01)
[2024-09-16 18:06] LABS: Glucose,Whole Blood 169 mg/dL (70-110)
[2024-09-16] MEDS: hydrALAZINE HCL 10 MG TAB PO SCH (18:28)
[2024-09-16] MEDS: ISOSORBIDE DINITRATE 10 MG TAB PO SCH (18:28)
[2024-09-16 18:36] LABS: Basophils % (A) 0 %; Eosinophils # (A) 0.1 k/uL (0-0.7); Eosinophils % (A) 0 %; HCT 33.8 % (39.0-53.0); HGB 10.9 gm/dL (13.0-17.5); Hypochromasia Slight; Lymphocytes # (A) 0.8 k/uL (1.0-4.8); Lymphocytes % (A) 6 %; MCH 30.6 pg (25.0-35.0); MCHC 32.2 g/dL (31.0-37.0); Mean Platelet Volume 10.2; Monocytes # (A) 0.7 k/uL (0-1.0); Monocytes % (A) 5 %; Neutrophils # (A) 11.6 k/uL (1.3-7.7); Neutrophils % (A) 88 %; Platelet Count 186 k/uL (150-450); RBC 3.55 m/uL (4.30-5.90); RDW 15.3 % (11.5-15.5); WBC 13.3 k/uL (3.8-10.6)
[2024-09-16] MEDS: NITROGLYCERIN-D5W PMX 50 MG in DEXTROSE/WATER 1 250ML.BAG IV SCH (18:37)
[2024-09-16] MEDS: SODIUM CHLORIDE 0.9% 1,000 ML in EMPTY BAG 1 BAG IV SCH (18:37)
[2024-09-16 18:46] LABS: INR 1.2 (<1.2); Prothrombin Time 12.7 sec (10.0-12.5)
[2024-09-16 18:54] LABS: African American GFR (CKD) 47 (>60 ml/min/1.73 sqM); Anion Gap 14 mmol/L; Blood Urea Nitrogen 32 mg/dL (9-20); Calcium 7.9 mg/dL (8.4-10.2); Carbon Dioxide 21 mmol/L (22-30); Chloride 104 mmol/L (98-107); Glucose 174 mg/dL (74-99); Non-African American GFR(CKD) 41 (>60 ml/min/1.73 sqM); Sodium 139 mmol/L (137-145)
[2024-09-16 18:55] LABS: Magnesium 2.1 mg/dL (1.6-2.3); Potassium 3.7 mmol/L (3.5-5.1)
[2024-09-16 19:11] LABS: Partial Thromboplastin Time 123.7 sec (22.0-30.0)
--- NOTE | 2024-09-16 19:31 | XR ---
EXAMINATION TYPE: XR chest 1V portable DATE OF EXAM: 09/16/2024 6:58 PM CLINICAL INDICATION:Male, 68 years old with history of LVAD placement; [facility] COMPARISON: Chest radiograph from the same day TECHNIQUE: XR chest 1V portable Frontal view of the chest. FINDINGS: Interval placement of a cardiac device overlying the left hemithorax. There is similar diffuse inters titial pattern with bilateral consolidations and pleural effusions. Cardiac silhouette is stable. No obvious pneumothorax. No acute osseous abnormalities. IMPRESSION: 1. Interval placement of a cardiac device overlying the left hemithorax. 2. Similar diffuse pleural-parenchymal changes which may represent a congestive heart process versus other acute infectious/inflammatory process. [facility], , 09/16/2024 7:29 PM
[2024-09-16 20:26] LABS: Glucose,Whole Blood 177 mg/dL (70-110)
[2024-09-16 20:43] LABS: Hepatitis B Surface Antigen Nonreactive (Nonreactive)
[2024-09-16 21:05] LABS: ABG Base Excess -4.8 mmol/L; ABG HCO3 19 mmol/L (21-25); ABG Oxygen Saturation 98.3 % (94-97); ABG PCO2 32 mmHg (35-45); ABG PH 7.39 (7.35-7.45); ABG PO2 97 mmHg (83-108); ABG TCO2 20 mmol/L (19-24)
[2024-09-16 21:07] LABS: Allen Test Performed? no
[2024-09-16 21:14] LABS: Hepatitis B Surface AB- Quant 3.5 mIU/mL
[2024-09-16] MEDS: hydrALAZINE HCL 20 MG/ML 1 ML VIAL IVP SCH (21:28)
[2024-09-16] MEDS: NITROGLYCERIN OINT 1 INCH/GM PACKET TOPICAL SCH (21:28)
[2024-09-16] MEDS: LORazepam 2 MG/ML INJ IV STA (22:15)
[2024-09-17 00:56] LABS: African American GFR (CKD) 49 (>60 ml/min/1.73 sqM); Anion Gap 15 mmol/L; Blood Urea Nitrogen 34 mg/dL (9-20); Calcium 7.7 mg/dL (8.4-10.2); Carbon Dioxide 18 mmol/L (22-30); Chloride 105 mmol/L (98-107); Glucose 170 mg/dL (74-99); Non-African American GFR(CKD) 42 (>60 ml/min/1.73 sqM); Potassium 3.6 mmol/L (3.5-5.1); Sodium 138 mmol/L (137-145)
[2024-09-17 01:22] LABS: LDH 728 U/L (120-246)
[2024-09-17] MEDS ORDERED: Potassium Replacement Protocol 1 EACH MISC MISCELLANE PRN ×2 (01:54→18:16)
[2024-09-17] MEDS: POTASSIUM CHLORIDE 10 MEQ in WATER FOR INJECTION 1 100ML.BAG IVPB SCH ×2 (02:09→18:40)
[2024-09-17] MEDS: HYDROmorphone 0.5 MG/0.5 ML SYRINGE IVP PRN (02:19)
[2024-09-17 05:01] LABS: Basophils % (A) 0 %; Eosinophils # (A) 0.1 k/uL (0-0.7); Eosinophils % (A) 1 %; HCT 33.6 % (39.0-53.0); HGB 10.7 gm/dL (13.0-17.5); Hypochromasia Moderate; Lymphocytes # (A) 0.7 k/uL (1.0-4.8); Lymphocytes % (A) 7 %; MCH 30.4 pg (25.0-35.0); MCHC 31.8 g/dL (31.0-37.0); MCV 95.5 fL (80.0-100.0); Mean Platelet Volume 9.3; Monocytes # (A) 0.7 k/uL (0-1.0); Monocytes % (A) 6 %; Neutrophils # (A) 9.3 k/uL (1.3-7.7); Neutrophils % (A) 86 %; Platelet Count 181 k/uL (150-450); RBC 3.52 m/uL (4.30-5.90); RDW 15.4 % (11.5-15.5); WBC 10.9 k/uL (3.8-10.6)
[2024-09-17 05:15] LABS: African American GFR (CKD) 49 (>60 ml/min/1.73 sqM); Anion Gap 11 mmol/L; Blood Urea Nitrogen 35 mg/dL (9-20); Calcium 7.8 mg/dL (8.4-10.2); Carbon Dioxide 21 mmol/L (22-30); Chloride 106 mmol/L (98-107); Glucose 186 mg/dL (74-99); Non-African American GFR(CKD) 43 (>60 ml/min/1.73 sqM); Sodium 138 mmol/L (137-145)
[2024-09-17 06:21] LABS: LDH 927 U/L (120-246); Potassium 4.2 mmol/L (3.5-5.1)
[2024-09-17 06:38] LABS: Glucose,Whole Blood 210 mg/dL (70-110)
[2024-09-17] MEDS ORDERED: HEPARIN SODIUM,PORCINE 10,000 UNIT in SODIUM CHLORIDE 0.9% 1,000 ML IRRIGATION PRN (07:00)
[2024-09-17] MEDS ORDERED: HEPARIN SODIUM,PORCINE (1 ML) 2,500 UNIT in SODIUM CHLORIDE 0.9% 250 ML IRRIGATION PRN (07:00)
--- NOTE | 2024-09-17 07:16 | XR ---
EXAMINATION TYPE: XR chest 1V portable DATE OF EXAM: 09/17/2024 COMPARISON: 09/16/2024 CLINICAL INDICATION: Male, 68 years old with history of LVAD placement. Perform with HOB at 0 degrees .; , TECHNIQUE: XR chest 1V portable views of the chest. FINDINGS: There is now complete opacification left hemithorax. Interstitial pattern on the right with tiny effu marc and subsegmental consolidation. Heart size stable. Arthropathy of the shoulders and degenerative change of the spine. Question small overlying drain or tubing left lung base. Similar-appearing wire device overlying the chest. Correlate clinically. IMPRESSION: 1. Progressive changes on the left with now complete consolidation and opacification left hemithorax. . [facility], , 09/17/2024 7:14 AM
[2024-09-17] MEDS: FUROSEMIDE 10 MG/ML 10 ML VIAL IV SCH (10:22)
--- NOTE | 2024-09-17 12:41 | P.PN ---
Subjective Progress Note Date: 09/17/24 Principal diagnosis: Sepsis. This is a 68-year-old white male, known history of type 2 diabetes, peripheral vessel occlusive disease secondary to diabetes, patient was admitted on 09/10/2014, presented to the ER with right toe infection. The right big toe has been getting increasingly painful, swollen, red and tender. 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 Seen in the ER, foot x-ray showed moderate to severe soft tissue swelling, patient was admitted with diabetic foot infection. Seen by infectious disease, placed on antibiotics, patient was also seen by vascular surgery and cardiology for elevated troponin. Patient underwent cardiac catheterization today, he was found to have 90% proximal mid LAD stenosis 80% diagonal 190% OM1 100% mid circumflex and 99% mid RCA. Patient was also noted to have slightly elevated left-sided filling pressures, patient was noted to be hypotensive in the [employer], placed on norepinephrine, admitted to the ICU because of hypotension and this consult was initiated. During my evaluation, patient had no shortness of breath, no cough, no wheezing, he had some vague chest discomfort. Patient is being considered for possible Impella protected PCI of LAD and RCA down the line, concerned about his renal status and contrast media. Labs on this patient today showed leukocytosis with WBC count of 14.2 hemoglobin is 11 electrolytes are normal BUN is 26 creatinine 1.23. Patient has been seen by infectious disease on the case, presently on Unasyn 3 g every 6 hours. Preliminary report on blood cultures since admission has been negative. Pulmonary trejo, patient has been a smoker over the years, he had at least a 91-wpop-elph smoking history since age 13. Has not been on any inhalers and has not been diagnosed with COPD. Patient was seen today on 09/14/2023, remains in the ICU, patient has been seen by many consultants including cardiology, infectious disease, nephrology, patient is developing worsening renal failure picture, seen by nephrology, recommended Lasix, and bicarb. Patient is on Unasyn for his big toe infection. Patient has leukocytosis with WBC of 16.9 hemoglobin 10.9 bicarb is 17 BUN is 30 creatinine is up to 1.62. Patient is off norepinephrine, not requiring any pressors, he had norepinephrine last night shortly after he came back from the cardiac catheterization and he is now hemodynamically stable off norepinephrine. Pulmonary trejo no cough no wheezing no shortness of breath his acute kidney injury felt to be related to hypotension and contrast media his initial presentation was a presentation of non-ST elevation myocardial infarction and he was found to have significant triple-vessel coronary artery disease. Chest x- ray did not show evidence of fluid overload patient did receive Lasix and he remains on Lasix as recommended by nephrology. Patient was seen today on 09/15/2023, patient remains in the ICU, confused, pulling his IV lines, remains on Unasyn and daptomycin, remains on Lasix, patient developed worsening renal failure, that is being addressed by nephrology. No chest x-ray was done today, however he is scheduled to have a chest x-ray in a.m., presently on room air, does not seem to be in any distress, but is intermittently confused, requiring a sitter to keep a close watch on the patient. WBC count is 13.2 hemoglobin 11.5, electrolytes are normal BUN is 37, creatinine is up to 1.97. Patient is being followed by many consultants including cardiology, infectious disease, and nephrology. Progress note dated September 16, 2024. This the patient was admitted on September 10. He came in initially with diabetic foot infection. He had a heart catheterization on September 12, which revealed significant coronary artery disease. He came to the ICU on the , because of hypotension. The patient is seen today in room 264. He is getting hemodialysis. He is on 4-1/2 L of oxygen. He is getting heparin via weight- based protocol, and saline at 50 cc an hour. The plan for him is an Impella protected PCI, by Dr. Frias, sometime this week possibly. Currently, white count 9.3, hemoglobin 10.9, hematocrit 34.4, platelet count 193,000. PTT is 55.2. Sodium 140, potassium 3.9, chlorides 108, CO2 14 anion gap 18, BUN 38, creatinine 2.12. Calcium is 8. Glucose is 174. Chest x-ray is consistent with pulmonary edema. Progress note dated September 17, 2024. The patient is seen today in room 264. The patient was taken to the catheterization laboratory yesterday, for an Impella protected catheterization, and possible stent. Apparently no stent was placed. The patient is currently on BiPAP, with settings of 12/5, and 40%. The patient is having hemodialysis today, with removal of 1 L of fluid. The patient's blood gases yesterday showed a pO2 of 97, pCO2 of 32, pH is 7.39. He is on IV heparin via weight-based protocol. He is getting saline at 20 cc an hour. Apparently he will go back to the catheterization laboratory tomorrow. White count 10.9, hemoglobin 10.7, hematocrit 33.6, with a normal platelet count. Sodium 138, potassium 4.2, chl orides 106, CO2 21, BUN 35, creatinine 1.63. Glucose is 210. Calcium is 7.8. Chest x-ray shows complete opacification of the left hemithorax. Objective - Vital Signs Vital signs: Vital Signs Temp 97 F L 09/17/24 12:33 Pulse 63 09/17/24 12:33 Resp 24 09/17/24 12:33 BP 126/65 09/17/24 12:33 Pulse Ox 95 09/17/24 11:00 FiO2 40 09/17/24 12:32 Intake & Output 09/16/24 09/17/24 09/17/24 18:59 06:59 18:59 Intake Total 1367.072 333.836 500 Output Total 2595 395 2600 Balance -1227.928 -61.164 -2100 Weight 108.4 kg 111.6 kg Intake: IV 780 320 100 0.9% NS KVO 80 220 100 Ampicillin-Sulbactam 3 gm 100 In Sodium Chloride 0.9% 100 ml @ 200 mls/hr IVPB Q8H [facility] Rx#:[id number] DAPTOmycin 500 mg In 100 Sodium Chloride 0.9% 50 ml @ 100 mls/hr IVPB Q24HR@2100 [facility] Rx#: [id number] Potassium Chloride 10 meq 100 In Water For Injection 1 100ml.bag @ 100 mls/hr IVPB Q1H [facility] Rx#: [id number] Sodium Chloride 0.9% 1, 350 000 ml @ 50 mls/hr IV . Q20H [facility] Rx#:[id number] Intake, IV Titration 187.072 13.836 Amount Heparin Sod,Pork in 0.45% 187.072 13.186 NaCl 25,000 unit In 0.45 % NaCl 1 250ml.bag @ 9.2 UNITS/KG/HR 10.015 mls/hr IV .Q24H [facility] Rx#: [id number] Nitroglycerin-D5w Pmx 50 0.65 mg In Dextrose/Water 1 250ml.bag @ 5 MCG/MIN 1.5 mls/hr IV .Q24H [facility] Rx#: [id number] Hemodialysis 400 400 Output: Urine 195 395 200 Hemodialysis 1400 1400 Hemodialysis Net Amount 1000 1000 Other: Voiding Method Indwelling Catheter Indwelling Catheter Indwelling Catheter ABP, PAP, CO, CI - Last Documented Arterial Blood Pressure 128/72 Pulmonary Artery Pressure 264/264 - Exam No acute distress, somnolent, with BiPAP mask in place. The patient does arouse. HEENT examination is grossly unremarkable. Mucous membranes are moist. No oral lesions. Neck supple. Full range of motion. No adenopathy thyromegaly or neck vein distention. Cardiovascular examination reveals regular rhythm rate. S1-S2 normal. No S3 or S4. Soft systolic murmur is noted. Lungs reveal scattered rhonchi and crackles. Breath sounds equal. No wheezes. Abdomen soft bowel sounds are heard. No masses or tenderness. Extremities are intact. No cyanosis or clubbing. There is lower extremity edema. Gangrenous changes noted in the right big toe. Skin is without rash or lesion. Neurologic examination is brief but nonfocal. - Labs CBC & Chem 7: 09/17/24 04:00 09/17/24 06:28 Labs: Abnormal Lab Results - Last 24 Hours (Table) 09/15/24 09/16/24 09/16/24 Range/Units 04:45 18:05 18:25 WBC 13.3 H (3.8-10.6) k/uL RBC 3.55 L (4.30-5.90) m/uL Hgb 10.9 L (13.0-17.5) gm/dL Hct 33.8 L (39.0-53.0) % Neutrophils # 11.6 H (1.3-7.7) k/uL Lymphocytes # 0.8 L (1.0-4.8) k/uL PT (10.0-12.5) sec INR (<1.2) APTT (22.0-30.0) sec Fibrinogen (200-500) mg/dL ABG pCO2 (35-45) mmHg ABG HCO3 (21-25) mmol/L ABG O2 Saturation (94-97) % Hemoglobin (13.0-17.5) gm/dL Carbon Dioxide (22-30) mmol/L BUN (9-20) mg/dL Creatinine (0.66-1.25) mg/dL Glucose (74-99) mg/dL POC Glucose (mg/dL) 169 H (70-110) mg/dL Calcium (8.4-10.2) mg/dL Lactate Dehydrogenase (120-246) U/L Total Creatine Kinase 20 L (30-223) u/L 09/16/24 09/16/24 09/16/24 Range/Units 18:25 18:25 20:25 WBC (3.8-10.6) k/uL RBC (4.30-5.90) m/uL Hgb (13.0-17.5) gm/dL Hct (39.0-53.0) % Neutrophils # (1.3-7.7) k/uL Lymphocytes # (1.0-4.8) k/uL PT 12.7 H (10.0-12.5) sec INR 1.2 H (<1.2) APTT 123.7 H* (22.0-30.0) sec Fibrinogen 553 H (200-500) mg/dL ABG pCO2 (35-45) mmHg ABG HCO3 (21-25) mmol/L ABG O2 Saturation (94-97) % Hemoglobin (13.0-17.5) gm/dL Carbon Dioxide 21 L (22-30) mmol/L BUN 32 H (9-20) mg/dL Creatinine 1.70 H (0.66-1.25) mg/dL Glucose 174 H (74-99) mg/dL POC Glucose (mg/dL) 177 H (70-110) mg/dL Calcium 7.9 L (8.4-10.2) mg/dL Lactate Dehydrogenase (120-246) U/L Total Creatine Kinase (30-223) u/L 09/16/24 09/16/24 09/16/24 Range/Units 20:26 20:26 21:01 WBC (3.8-10.6) k/uL RBC (4.30-5.90) m/uL Hgb (13.0-17.5) gm/dL Hct (39.0-53.0) % Neutrophils # (1.3-7.7) k/uL Lymphocytes # (1.0-4.8) k/uL PT (10.0-12.5) sec INR (<1.2) APTT (22.0-30.0) sec Fibrinogen 504 H (200-500) mg/dL ABG pCO2 32 L (35-45) mmHg ABG HCO3 19 L (21-25) mmol/L ABG O2 Saturation 98.3 H (94-97) % Hemoglobin 9.9 L (13.0-17.5) gm/dL Carbon Dioxide (22-30) mmol/L BUN (9-20) mg/dL Creatinine (0.66-1.25) mg/dL Glucose (74-99) mg/dL POC Glucose (mg/dL) (70-110) mg/dL Calcium (8.4-10.2) mg/dL Lactate Dehydrogenase 521 H (120-246) U/L Total Creatine Kinase (30-223) u/L 09/16/24 09/16/24 09/17/24 Range/Units 23:45 23:45 02:15 WBC (3.8-10.6) k/uL RBC (4.30-5.90) m/uL Hgb (13.0-17.5) gm/dL Hct (39.0-53.0) % Neutrophils # (1.3-7.7) k/uL Lymphocytes # (1.0-4.8) k/uL PT (10.0-12.5) sec INR (<1.2) APTT 40.7 H (22.0-30.0) sec Fibrinogen 637 H (200-500) mg/dL ABG pCO2 (35-45) mmHg ABG HCO3 (21-25) mmol/L ABG O2 Saturation (94-97) % Hemoglobin (13.0-17.5) gm/dL Carbon Dioxide 18 L (22-30) mmol/L BUN 34 H (9-20) mg/dL Creatinine 1.65 H (0.66-1.25) mg/dL Glucose 170 H (74-99) mg/dL POC Glucose (mg/dL) (70-110) mg/dL Calcium 7.7 L (8.4-10.2) mg/dL Lactate Dehydrogenase 728 H (120-246) U/L Total Creatine Kinase (30-223) u/L 09/17/24 09/17/24 09/17/24 Range/Units 04:00 04:00 04:00 WBC 10.9 H (3.8-10.6) k/uL RBC 3.52 L (4.30-5.90) m/uL Hgb 10.7 L (13.0-17.5) gm/dL Hct 33.6 L (39.0-53.0) % Neutrophils # 9.3 H (1.3-7.7) k/uL Lymphocytes # 0.7 L (1.0-4.8) k/uL PT (10.0-12.5) sec INR (<1.2) APTT (22.0-30.0) sec Fibrinogen 618 H (200-500) mg/dL ABG pCO2 (35-45) mmHg ABG HCO3 (21-25) mmol/L ABG O2 Saturation (94-97) % Hemoglobin (13.0-17.5) gm/dL Carbon Dioxide 21 L (22-30) mmol/L BUN 35 H (9-20) mg/dL Creatinine 1.63 H (0.66-1.25) mg/dL Glucose 186 H (74-99) mg/dL POC Glucose (mg/dL) (70-110) mg/dL Calcium 7.8 L (8.4-10.2) mg/dL Lactate Dehydrogenase 927 H (120-246) U/L Total Creatine Kinase (30-223) u/L 09/17/24 Range/Units 06:27 WBC (3.8-10.6) k/uL RBC (4.30-5.90) m/uL Hgb (13.0-17.5) gm/dL Hct (39.0-53.0) % Neutrophils # (1.3-7.7) k/uL Lymphocytes # (1.0-4.8) k/uL PT (10.0-12.5) sec INR (<1.2) APTT (22.0-30.0) sec Fibrinogen (200-500) mg/dL ABG pCO2 (35-45) mmHg ABG HCO3 (21-25) mmol/L ABG O2 Saturation (94-97) % Hemoglobin (13.0-17.5) gm/dL Carbon Dioxide (22-30) mmol/L BUN (9-20) mg/dL Creatinine (0.66-1.25) mg/dL Glucose (74-99) mg/dL POC Glucose (mg/dL) 210 H (70-110) mg/dL Calcium (8.4-10.2) mg/dL Lactate Dehydrogenase (120-246) U/L Total Creatine Kinase (30-223) u/L Assessment and Plan Assessment: Gangrenous right big toe. Acute non-ST segment elevation myocardial infarction. S/P Impella protected cardiac catheterization, September 16, 2024. Severe coronary artery disease. Acute kidney injury/ATN, secondary to hypotension, and contrast. Severe ischemic cardiomyopathy. Tobacco dependence syndrome. Probable COPD. Peripheral vascular occlusive disease. Hyperlipidemia. Hypotension, likely secondary to cardiomyopathy, and sepsis. Metabolic encephalopathy. Plan: Plan dated September 16, 2024. The patient is seen today in room 264. Currently, he is on oxygen at 4.5 L by nasal cannula. He is getting IV heparin via weight-based protocol, and saline at 50 cc an hour. The patient was admitted on 10 September, and, came to the intensive care unit on the , where he had a heart catheterization, showing coronary disease, and hypotension. Labs, x-rays, and all medications are reviewed. I did speak to cardiology, and they wanted to proceed with a Impella protected PCI. The patient may end up on mechanical ventilation, although BiPAP could be tried prior. Currently, the patient is on appropriate medications, including, Unasyn, and daptomycin. Infectious diseases is following, as is nephrology. Plan dated September 17, 2024. The patient went for heart catheterization yesterday. An Impella device was p laced. He continues on the Impella today. He is currently on BiPAP, with settings of 12/5, and 40%. The patient will have hemodialysis today, with 1 L being removed. The patient apparently will be going back to the catheterization laboratory September 18, according to the nurse. The patient continues on IV heparin. Blood gases yesterday showed a pO2 of 97, pCO2 32, pH is 7.39. All labs, x-rays, medications are reviewed. The patient continues on antibiotics. We will continue to follow make recommendations. Prognosis is guarded. Time with Patient: Greater than 30
--- NOTE | 2024-09-17 12:49 | CA ---
Transthoracic Echo Report Name: Roberto Cage Age: 68 Gender: M : 1955 Exam Date: 09/16/2024 17:17 Exam Location: [facility] Ht (in): 66 Wt (lb): 238 Ordering Physician: Willie Frias DO ([email or web address]) Attending/Referring Phys: [employer] Elisa Humphreys RDCS Procedure CPT: Indications: Placement of Left Ventricular Assist Device Cardiac Hx: Technical Quality: Technically difficult study Contrast 1: Total Dose (mL): Contrast 2: Total Dose (mL): MEASUREMENTS (Male / Female) Normal Values FINDINGS Left Ventricle Left Ventricular Assist Device in place. Left ventricular ejection fraction is estimated at 30-35 %. Right Ventricle Right Atrium Left Atrium Mitral Valve Aortic Valve Tricuspid Valve Pulmonic Valve Pericardium No pericardial effusion. Aorta CONCLUSIONS Left Ventricular Assist Device in place. Left ventricular ejection fraction is estimated at 30-35 %. No pericardial effusion. Impella tip measuring 5.3cm from the aortic annulus Previewed by: Dr. Willie Frias DO (Electronically Signed) Final Date: 17 September 2024 12:48
--- NOTE | 2024-09-17 13:33 | P.CARDCATH ---
Description of Procedure: PROCEDURES PERFORMED: Right heart catheterization, left lower extremity angiography, ultrasound guided arterial and venous access, placement of LV Impella CP INDICATION: Cardiogenic shock with kidney and respiratory failure CONSENT:I have discussed the risks, benefits and alternative therapies for the above-mentioned procedure and for both sedation/analgesia as well as necessary blood product administration, if indicated, as they pertain to this patient. The patient/ family has indicated understanding and acceptance of the risks and procedures discussed. PROCEDURE: After the risks, benefits and alternatives of the above mentioned procedure explained in detail, informed consent was obtained. Patient was taken to the catheterization lab and prepped and draped in usual fashion. Ultrasound guidance was used to assess for arterial access. 1% lidocaine was used to anesthetize the left femoral artery. A 6-[place] sheath was placed in the left femoral artery using modified Seldinger technique and ultrasound guidance. An additional 6Fr sheath was placed in the left femoral vein using ultrasound. Given concern of cardiogenic shock with worsening organ failure the decision was made to perform right heart catheterization. A 6-[place] Conover-Avila catheter was inserted in the right atrium, right ventricle, pulmonary artery and PCWP position and pressure measurements and oxygen saturations were obtained. Thermodilution was performed. Testing showed significant decreased cardiac output and therefore decision made to place Impella. 2 great close her closes were placed and 10:00 and 2 o'clock position. Next over a stiff wire the 6- [place] sheath was upsized to a 14-[place] sheath. Next a pigtail was inserted in the left ventricle and pressure measurements were obtained. A pigtail catheter was exchanged for the Impella over a 0.018 wire. Heparin had been given. The Impella was turned on with adequate output. Through the left femoral sheath, femoral angiogram was performed which showed good perfusion throughout the femoral artery and distally. The Conover Avila catheter and the Impella were sutured in place. The patient tolerated the procedure well on BIPAP. Patient was transported back to the post catheterization holding area in stable condition. Conscious Sedation: Patient was monitored under the direct supervision of myself for conscious sedation using Versed and fentanyl for a total duration of 57 minutes HEMODYNAMICS: Ao: 102/67 LV: 108/15, LVEDP 27 PCWP: 28 PA: 48/23 RV: 49/18 RA: 24 PA oxygen saturation: 53% RA oxygen saturation: 58% Left femoral arterial oxygen saturation: 91% CO by LI: 5.4 L/min CI by LI: 2.53 L/min/m2 CO by thermodilution: 4.0 L/min CI by thermodilution: 1.87 L/min/m2 FINAL IMPRESSION: 1. Cardiogenic shock s/p Impella CP placement 2. Significantly elevated left and right sided filling pressures PLAN: 1. Continue Impella and wean as able. Optimize heart failure regimen 2. Increase diuresis 3. Likely staged PCI if kidney function improving.
--- NOTE | 2024-09-17 13:41 | PN ---
PROGRESS NOTE SUBJECTIVE: Mr. Cage is a 68-year-old gentleman with history of diabetes, diabetic foot infection, prior amputation of the left foot and gangrene infection on the right big toe awaiting amputation that developed acute renal failure, and cardiogenic shock following his cardiac catheterization and is currently awaiting revascularization once he is more stable. He was confused yesterday, seems less confused and is more responsive. He underwent an Impella device placement yesterday. Blood pressures have been stable. His kidney functions are gradually improving. Creatinine is down to 1.63. Urine output is still poor, but might be improving. Hemoglobin is 10.7, potassium is 4. He has a right heart catheterization which is not functioning normally and we are going to pull it out. OBJECTIVE: VITAL SIGNS: Heart rate is 60 beats per minute, blood pressure is 128/87, respiratory rate is 18. CHEST: Did not reveal any crackles or rhonchi. HEART: Reveals first and second heart sounds. No gallop. ABDOMEN: Soft. EXTREMITIES: Reveals 1+ edema. He has scrotal edema noted. ASSESSMENT: 1. Multivessel coronary artery disease. 2. Acute renal failure, improving. 3. Cardiogenic shock, status post circulatory support device placement. PLAN: We will continue current measures. I will continue with the Lipitor, nitroglycerin paste, and hydralazine. He is on IV heparin. Impella device is being managed by Dr. Frias. SHORTY / SHINEN: [id number] /
[2024-09-17 13:56] LABS: Partial Thromboplastin Time 37.6 sec (22.0-30.0)
[2024-09-17 14:24] LABS: Glucose,Whole Blood 172 mg/dL (70-110)
[2024-09-17] MEDS: hydrALAZINE HCL 20 MG/ML 1 ML VIAL IVP SCH (14:32)
--- NOTE | 2024-09-17 14:49 | P.PN ---
Subjective Progress Note Date: 09/16/24 Principal diagnosis: Reason for follow-up right first and second toe diabetic foot infection Patient is a 68-year-old male with a past medical history significant for diabetes mellitus osteoarthritis neuropathy patient did have a left big toe diabetic foot infection requiring left big toe amputation subsequently admitted to the hospital for evaluation of the right big and second toe discoloration mostly on the big toe concerning for diabetic foot infection prompted this consultation. Patient is status post cardiac cath on 09/13/2024 with evidence of significant coronary disease involving the LAD SOULEYMANE and circumflex as well as RCA stenosis no intervention On today's evaluation that is 09/16/2024, patient has been afebrile, patient is breathing comfortably and is currently on 5 L nasal oxygen, patient slightly lethargic elevated good historian no vomiting diarrhea and the change reported by the nursing staff Patient white count is 13.3 creatinine is 1.65 Objective - Vital Signs Vital signs: Vital Signs Temp 98.9 F 09/16/24 08:00 Pulse 80 09/16/24 11:00 Resp 36 H 09/16/24 11:00 BP 133/70 09/16/24 11:00 Pulse Ox 97 09/16/24 11:00 FiO2 Intake & Output 09/15/24 09/16/24 09/16/24 18:59 06:59 18:59 Intake Total 689.420 0285 350 Output Total 515 221 110 Balance 384.942 829 240 Intake: IV 605 800 350 Ampicillin-Sulbactam 3 gm 100 200 In Sodium Chloride 0.9% 100 ml @ 200 mls/hr IVPB Q8H [facility] Rx#:[id number] DAPTOmycin 500 mg In 50 Sodium Chloride 0.9% 50 ml @ 100 mls/hr IVPB Q24HR@2100 [facility] Rx#: [id number] Potassium Chloride 10 meq 100 In Water For Injection 1 100ml.bag @ 100 mls/hr IVPB Q1H [facility] Rx#: [id number] Sodium Chloride 0.9% 1, 505 550 250 000 ml @ 50 mls/hr IV . Q20H [facility] Rx#:[id number] Intake, IV Titration 294.942 Amount Heparin Sod,Pork in 0.45% 294.942 NaCl 25,000 unit In 0.45 % NaCl 1 250ml.bag @ 9.2 UNITS/KG/HR 10.015 mls/hr IV .Q24H [facility] Rx#: [id number] Oral 250 Output: Urine 515 221 110 Other: Voiding Method Indwelling Catheter Indwelling Catheter Indwelling Catheter - Exam GENERAL DESCRIPTION: An elderly male lying in bed in no distress RESPIRATORY SYSTEM: Unlabored breathing , decreased breath sounds at bases HEART: S1 S2 regular rate and rhythm , ABDOMEN: Soft , no tenderness EXTREMITIES: Right big toe discoloration swelling no foul-smelling drainage - Labs CBC & Chem 7: 09/17/24 04:00 09/17/24 06:28 Labs: Abnormal Lab Results - Last 24 Hours (Table) 09/15/24 09/15/24 09/16/24 Range/Units 15:55 23:00 04:48 RBC (4.30-5.90) m/uL Hgb (13.0-17.5) gm/dL Hct (39.0-53.0) % Neutrophils # (1.3-7.7) k/uL Lymphocytes # (1.0-4.8) k/uL APTT (22.0-30.0) sec Chloride 108 H (98-107) mmol/L Carbon Dioxide 14 L (22-30) mmol/L BUN 38 H (9-20) mg/dL Creatinine 2.12 H (0.66-1.25) mg/dL Glucose 169 H (74-99) mg/dL POC Glucose (mg/dL) 145 H 151 H (70-110) mg/dL Calcium 8.0 L (8.4-10.2) mg/dL 09/16/24 09/16/24 09/16/24 Range/Units 04:48 04:48 06:47 RBC 3.54 L (4.30-5.90) m/uL Hgb 10.9 L (13.0-17.5) gm/dL Hct 34.4 L (39.0-53.0) % Neutrophils # 8.2 H (1.3-7.7) k/uL Lymphocytes # 0.5 L (1.0-4.8) k/uL APTT 55.2 H (22.0-30.0) sec Chloride (98-107) mmol/L Carbon Dioxide (22-30) mmol/L BUN (9-20) mg/dL Creatinine (0.66-1.25) mg/dL Glucose (74-99) mg/dL POC Glucose (mg/dL) 169 H (70-110) mg/dL Calcium (8.4-10.2) mg/dL 09/16/24 Range/Units 11:33 RBC (4.30-5.90) m/uL Hgb (13.0-17.5) gm/dL Hct (39.0-53.0) % Neutrophils # (1.3-7.7) k/uL Lymphocytes # (1.0-4.8) k/uL APTT (22.0-30.0) sec Chloride (98-107) mmol/L Carbon Dioxide (22-30) mmol/L BUN (9-20) mg/dL Creatinine (0.66-1.25) mg/dL Glucose (74-99) mg/dL POC Glucose (mg/dL) 174 H (70-110) mg/dL Calcium (8.4-10.2) mg/dL Microbiology - Last 24 Hours (Table) 09/10/24 06:30 Blood Culture - Final Blood Assessment and Plan (1) Diabetic foot infection Current Visit: Yes Status: Acute Code(s): E11.628 - TYPE 2 DIABETES MELLITUS WITH OTHER SKIN COMPLICATIONS; L08.9 - LOCAL INFECTION OF THE SKIN AND SUBCUTANEOUS TISSUE, UNSP SNOMED Code(s): 286309365 (2) Diabetic foot ulcer Current Visit: Yes Status: Acute Code(s): E11.621 - TYPE 2 DIABETES MELLITUS WITH FOOT ULCER; L97.509 - NON-PRESSURE CHRONIC ULCER OTH PRT UNSP FOOT W UNSP SEVERITY SNOMED Code(s): 061990180 Plan: 1patient presented to hospital with discoloration to the right first and second toe in this patient who did have a previous history of left diabetic foot infection osteomyelitis requiring amputation of left big toe culture at that time was positive for MRSA and Finegoldia magna 2patient has been evaluated by vascular surgery and planning for amputation of the right first and second toe, per surgery has been put on hold because of patient developing chest pain did have a cardiac cath with evidence of multivessel disease no intervention was done because of his cardiac decompensation 3patient also noticed to have worsening of his creatinine and has been started on dialysis, patient to continue with daptomycin to continue along with the Unasyn await debridement and deep culture Dictation was produced using [employer] dictation software. please excuse any grammatical, word or spelling errors. Time with Patient: Less than 30
--- NOTE | 2024-09-17 14:50 | P.PN ---
Subjective Progress Note Date: 09/17/24 Principal diagnosis: Reason for follow-up right first and second toe diabetic foot infection Patient is a 68-year-old male with a past medical history significant for diabetes mellitus osteoarthritis neuropathy patient did have a left big toe diabetic foot infection requiring left big toe amputation subsequently admitted to the hospital for evaluation of the right big and second toe discoloration mostly on the big toe concerning for diabetic foot infection prompted this consultation. Patient is status post cardiac cath on 09/13/2024 with evidence of significant coronary disease involving the LAD SOULEYMANE and circumflex as well as RCA stenosis no intervention On today's evaluation that is 09/17/2024, Patient has been afebrile patient is requiring more supplemental oxygen seem to be slightly lethargic no vomiting diarrhea that she is reported by the nursing staff. Patient white count is down to 10.9 creat is 1.63 Objective - Vital Signs Vital signs: Vital Signs Temp 97 F L 09/17/24 12:33 Pulse 63 09/17/24 12:33 Resp 24 09/17/24 12:33 BP 126/65 09/17/24 12:33 Pulse Ox 95 09/17/24 11:00 FiO2 40 09/17/24 12:32 Intake & Output 09/16/24 09/17/24 09/17/24 18:59 06:59 18:59 Intake Total 1367.072 333.836 500 Output Total 2595 395 2600 Balance -1227.928 -61.164 -2100 Weight 108.4 kg 111.6 kg Intake: IV 780 320 100 0.9% NS KVO 80 220 100 Ampicillin-Sulbactam 3 gm 100 In Sodium Chloride 0.9% 100 ml @ 200 mls/hr IVPB Q8H [facility] Rx#:[id number] DAPTOmycin 500 mg In 100 Sodium Chloride 0.9% 50 ml @ 100 mls/hr IVPB Q24HR@2100 [facility] Rx#: [id number] Potassium Chloride 10 meq 100 In Water For Injection 1 100ml.bag @ 100 mls/hr IVPB Q1H [facility] Rx#: [id number] Sodium Chloride 0.9% 1, 350 000 ml @ 50 mls/hr IV . Q20H [facility] Rx#:[id number] Intake, IV Titration 187.072 13.836 Amount Heparin Sod,Pork in 0.45% 187.072 13.186 NaCl 25,000 unit In 0.45 % NaCl 1 250ml.bag @ 9.2 UNITS/KG/HR 10.015 mls/hr IV .Q24H [facility] Rx#: [id number] Nitroglycerin-D5w Pmx 50 0.65 mg In Dextrose/Water 1 250ml.bag @ 5 MCG/MIN 1.5 mls/hr IV .Q24H [facility] Rx#: [id number] Hemodialysis 400 400 Output: Urine 195 395 200 Hemodialysis 1400 1400 Hemodialysis Net Amount 1000 1000 Other: Voiding Method Indwelling Catheter Indwelling Catheter Indwelling Catheter ABP, PAP, CO, CI - Last Documented Arterial Blood Pressure 128/72 Pulmonary Artery Pressure 264/264 - Exam GENERAL DESCRIPTION: An elderly male lying in bed in no distress RESPIRATORY SYSTEM: Unlabored breathing , decreased breath sounds at bases HEART: S1 S2 regular rate and rhythm , ABDOMEN: Soft , no tenderness EXTREMITIES: Right big toe discoloration swelling no foul-smelling drainage - Labs CBC & Chem 7: 09/17/24 04:00 09/17/24 06:28 Labs: Abnormal Lab Results - Last 24 Hours (Table) 09/15/24 09/16/24 09/16/24 Range/Units 04:45 18:05 18:25 WBC 13.3 H (3.8-10.6) k/uL RBC 3.55 L (4.30-5.90) m/uL Hgb 10.9 L (13.0-17.5) gm/dL Hct 33.8 L (39.0-53.0) % Neutrophils # 11.6 H (1.3-7.7) k/uL Lymphocytes # 0.8 L (1.0-4.8) k/uL PT (10.0-12.5) sec INR (<1.2) APTT (22.0-30.0) sec Fibrinogen (200-500) mg/dL ABG pCO2 (35-45) mmHg ABG HCO3 (21-25) mmol/L ABG O2 Saturation (94-97) % Hemoglobin (13.0-17.5) gm/dL Carbon Dioxide (22-30) mmol/L BUN (9-20) mg/dL Creatinine (0.66-1.25) mg/dL Glucose (74-99) mg/dL POC Glucose (mg/dL) 169 H (70-110) mg/dL Calcium (8.4-10.2) mg/dL Lactate Dehydrogenase (120-246) U/L Total Creatine Kinase 20 L (30-223) u/L 09/16/24 09/16/24 09/16/24 Range/Units 18:25 18::25 WBC (3.8-10.6) k/uL RBC (4.30-5.90) m/uL Hgb (13.0-17.5) gm/dL Hct (39.0-53.0) % Neutrophils # (1.3-7.7) k/uL Lymphocytes # (1.0-4.8) k/uL PT 12.7 H (10.0-12.5) sec INR 1.2 H (<1.2) APTT 123.7 H* (22.0-30.0) sec Fibrinogen 553 H (200-500) mg/dL ABG pCO2 (35-45) mmHg ABG HCO3 (21-25) mmol/L ABG O2 Saturation (94-97) % Hemoglobin (13.0-17.5) gm/dL Carbon Dioxide 21 L (22-30) mmol/L BUN 32 H (9-20) mg/dL Creatinine 1.70 H (0.66-1.25) mg/dL Glucose 174 H (74-99) mg/dL POC Glucose (mg/dL) 177 H (70-110) mg/dL Calcium 7.9 L (8.4-10.2) mg/dL Lactate Dehydrogenase (120-246) U/L Total Creatine Kinase (30-223) u/L 09/16/24 09/16/24 09/16/24 Range/Units 20:26 20:26 21:01 WBC (3.8-10.6) k/uL RBC (4.30-5.90) m/uL Hgb (13.0-17.5) gm/dL Hct (39.0-53.0) % Neutrophils # (1.3-7.7) k/uL Lymphocytes # (1.0-4.8) k/uL PT (10.0-12.5) sec INR (<1.2) APTT (22.0-30.0) sec Fibrinogen 504 H (200-500) mg/dL ABG pCO2 32 L (35-45) mmHg ABG HCO3 19 L (21-25) mmol/L ABG O2 Saturation 98.3 H (94-97) % Hemoglobin 9.9 L (13.0-17.5) gm/dL Carbon Dioxide (22-30) mmol/L BUN (9-20) mg/dL Creatinine (0.66-1.25) mg/dL Glucose (74-99) mg/dL POC Glucose (mg/dL) (70-110) mg/dL Calcium (8.4-10.2) mg/dL Lactate Dehydrogenase 521 H (120-246) U/L Total Creatine Kinase (30-223) u/L 09/16/24 09/16/24 09/17/24 Range/Units 23:45 23:45 02:15 WBC (3.8-10.6) k/uL RBC (4.30-5.90) m/uL Hgb (13.0-17.5) gm/dL Hct (39.0-53.0) % Neutrophils # (1.3-7.7) k/uL Lymphocytes # (1.0-4.8) k/uL PT (10.0-12.5) sec INR (<1.2) APTT 40.7 H (22.0-30.0) sec Fibrinogen 637 H (200-500) mg/dL ABG pCO2 (35-45) mmHg ABG HCO3 (21-25) mmol/L ABG O2 Saturation (94-97) % Hemoglobin (13.0-17.5) gm/dL Carbon Dioxide 18 L (22-30) mmol/L BUN 34 H (9-20) mg/dL Creatinine 1.65 H (0.66-1.25) mg/dL Glucose 170 H (74-99) mg/dL POC Glucose (mg/dL) (70-110) mg/dL Calcium 7.7 L (8.4-10.2) mg/dL Lactate Dehydrogenase 728 H (120-246) U/L Total Creatine Kinase (30-223) u/L 09/17/24 09/17/24 09/17/24 Range/Units 04:00 04:00 04:00 WBC 10.9 H (3.8-10.6) k/uL RBC 3.52 L (4.30-5.90) m/uL Hgb 10.7 L (13.0-17.5) gm/dL Hct 33.6 L (39.0-53.0) % Neutrophils # 9.3 H (1.3-7.7) k/uL Lymphocytes # 0.7 L (1.0-4.8) k/uL PT (10.0-12.5) sec INR (<1.2) APTT (22.0-30.0) sec Fibrinogen 618 H (200-500) mg/dL ABG pCO2 (35-45) mmHg ABG HCO3 (21-25) mmol/L ABG O2 Saturation (94-97) % Hemoglobin (13.0-17.5) gm/dL Carbon Dioxide 21 L (22-30) mmol/L BUN 35 H (9-20) mg/dL Creatinine 1.63 H (0.66-1.25) mg/dL Glucose 186 H (74-99) mg/dL POC Glucose (mg/dL) (70-110) mg/dL Calcium 7.8 L (8.4-10.2) mg/dL Lactate Dehydrogenase 927 H (120-246) U/L Total Creatine Kinase (30-223) u/L 09/17/24 Range/Units 06:27 WBC (3.8-10.6) k/uL RBC (4.30-5.90) m/uL Hgb (13.0-17.5) gm/dL Hct (39.0-53.0) % Neutrophils # (1.3-7.7) k/uL Lymphocytes # (1.0-4.8) k/uL PT (10.0-12.5) sec INR (<1.2) APTT (22.0-30.0) sec Fibrinogen (200-500) mg/dL ABG pCO2 (35-45) mmHg ABG HCO3 (21-25) mmol/L ABG O2 Saturation (94-97) % Hemoglobin (13.0-17.5) gm/dL Carbon Dioxide (22-30) mmol/L BUN (9-20) mg/dL Creatinine (0.66-1.25) mg/dL Glucose (74-99) mg/dL POC Glucose (mg/dL) 210 H (70-110) mg/dL Calcium (8.4-10.2) mg/dL Lactate Dehydrogenase (120-246) U/L Total Creatine Kinase (30-223) u/L Assessment and Plan (1) Diabetic foot infection Current Visit: Yes Status: Acute Code(s): E11.628 - TYPE 2 DIABETES MELLITUS WITH OTHER SKIN COMPLICATIONS; L08.9 - LOCAL INFECTION OF THE SKIN AND SUBCUTANEOUS TISSUE, UNSP SNOMED Code(s): 192577407 (2) Diabetic foot ulcer Current Visit: Yes Status: Acute Code(s): E11.621 - TYPE 2 DIABETES MELLITUS WITH FOOT ULCER; L97.509 - NON-PRESSURE CHRONIC ULCER OTH PRT UNSP FOOT W UNSP SEVERITY SNOMED Code(s): 462821935 Plan: 1patient presented to hospital with discoloration to the right first and second toe in this patient who did have a previous history of left diabetic foot infection osteomyelitis requiring amputation of left big toe culture at that time was positive for MRSA and Finegoldia magna 2patient has been evaluated by vascular surgery and planning for amputation of the right first and second toe, per surgery has been put on hold because of pat ient developing chest pain did have a cardiac cath with evidence of multivessel disease no intervention was done because of his cardiac decompensation 3patient also noticed to have worsening of his creatinine and has been started on dialysis, 4-patient is afebrile patient white count is almost normalized, patient will be treated with daptomycin along with the Unasyn and monitor clinical course deanna church Dictation was produced using [email or web address] dictation software. please excuse any grammatical, word or spelling errors. Time with Patient: Less than 30
[2024-09-17 15:25] LABS: African American GFR (CKD) 69 (>60 ml/min/1.73 sqM); Anion Gap 12 mmol/L; Blood Urea Nitrogen 25 mg/dL (9-20); Calcium 7.9 mg/dL (8.4-10.2); Carbon Dioxide 22 mmol/L (22-30); Chloride 102 mmol/L (98-107); Glucose 158 mg/dL (74-99); Non-African American GFR(CKD) 60 (>60 ml/min/1.73 sqM); Potassium 3.2 mmol/L (3.5-5.1); Sodium 136 mmol/L (137-145)
--- NOTE | 2024-09-17 16:03 | P.PN ---
Objective - Vital Signs Vital signs: Vital Signs Temp 97 F L 09/17/24 12:33 Pulse 61 09/17/24 14:30 Resp 8 L 09/17/24 14:30 BP 122/82 09/17/24 14:30 Pulse Ox 93 L 09/17/24 14:30 FiO2 40 09/17/24 12:32 Intake & Output 09/16/24 09/17/24 09/17/24 18:59 06:59 18:59 Intake Total 1367.072 333.836 540 Output Total 2595 395 3175 Balance -1227.928 -61.164 -2635 Weight 108.4 kg 111.6 kg Intake: IV 780 320 140 0.9% NS KVO 80 220 140 Ampicillin-Sulbactam 3 gm 100 In Sodium Chloride 0.9% 100 ml @ 200 mls/hr IVPB Q8H [facility] Rx#:[id number] DAPTOmycin 500 mg In 100 Sodium Chloride 0.9% 50 ml @ 100 mls/hr IVPB Q24HR@2100 [facility] Rx#: [id number] Potassium Chloride 10 meq 100 In Water For Injection 1 100ml.bag @ 100 mls/hr IVPB Q1H [facility] Rx#: [id number] Sodium Chloride 0.9% 1, 350 000 ml @ 50 mls/hr IV . Q20H [facility] Rx#:[id number] Intake, IV Titration 187.072 13.836 Amount Heparin Sod,Pork in 0.45% 187.072 13.186 NaCl 25,000 unit In 0.45 % NaCl 1 250ml.bag @ 9.2 UNITS/KG/HR 10.015 mls/hr IV .Q24H [facility] Rx#: [id number] Nitroglycerin-D5w Pmx 50 0.65 mg In Dextrose/Water 1 250ml.bag @ 5 MCG/MIN 1.5 mls/hr IV .Q24H [facility] Rx#: [id number] Hemodialysis 400 400 Output: Urine 195 395 775 Hemodialysis 1400 1400 Hemodialysis Net Amount 1000 1000 Other: Voiding Method Indwelling Catheter Indwelling Catheter Indwelling Catheter ABP, PAP, CO, CI - Last Documented Arterial Blood Pressure 119/67 Pulmonary Artery Pressure 264/264 - Labs CBC & Chem 7: 09/17/24 04:00 09/17/24 13:05 Labs: Abnormal Lab Results - Last 24 Hours (Table) 09/15/24 09/16/24 09/16/24 Range/Units 04:45 18:05 18:25 WBC 13.3 H (3.8-10.6) k/uL RBC 3.55 L (4.30-5.90) m/uL Hgb 10.9 L (13.0-17.5) gm/dL Hct 33.8 L (39.0-53.0) % Neutrophils # 11.6 H (1.3-7.7) k/uL Lymphocytes # 0.8 L (1.0-4.8) k/uL PT (10.0-12.5) sec INR (<1.2) APTT (22.0-30.0) sec Fibrinogen (200-500) mg/dL ABG pCO2 (35-45) mmHg ABG HCO3 (21-25) mmol/L ABG O2 Saturation (94-97) % Hemoglobin (13.0-17.5) gm/dL Sodium (137-145) mmol/L Potassium (3.5-5.1) mmol/L Carbon Dioxide (22-30) mmol/L BUN (9-20) mg/dL Creatinine (0.66-1.25) mg/dL Glucose (74-99) mg/dL POC Glucose (mg/dL) 169 H (70-110) mg/dL Calcium (8.4-10.2) mg/dL Lactate Dehydrogenase (120-246) U/L Total Creatine Kinase 20 L (30-223) u/L 09/16/24 09/16/24 09/16/24 Range/Units 18:25 18:25 20:25 WBC (3.8-10.6) k/uL RBC (4.30-5.90) m/uL Hgb (13.0-17.5) gm/dL Hct (39.0-53.0) % Neutrophils # (1.3-7.7) k/uL Lymphocytes # (1.0-4.8) k/uL PT 12.7 H (10.0-12.5) sec INR 1.2 H (<1.2) APTT 123.7 H* (22.0-30.0) sec Fibrinogen 553 H (200-500) mg/dL ABG pCO2 (35-45) mmHg ABG HCO3 (21-25) mmol/L ABG O2 Saturation (94-97) % Hemoglobin (13.0-17.5) gm/dL Sodium (137-145) mmol/L Potassium (3.5-5.1) mmol/L Carbon Dioxide 21 L (22-30) mmol/L BUN 32 H (9-20) mg/dL Creatinine 1.70 H (0.66-1.25) mg/dL Glucose 174 H (74-99) mg/dL POC Glucose (mg/dL) 177 H (70-110) mg/dL Calcium 7.9 L (8.4-10.2) mg/dL Lactate Dehydrogenase (120-246) U/L Total Creatine Kinase (30-223) u/L 09/16/24 09/16/24 09/16/24 Range/Units 20:26 20:26 21:01 WBC (3.8-10.6) k/uL RBC (4.30-5.90) m/uL Hgb (13.0-17.5) gm/dL Hct (39.0-53.0) % Neutrophils # (1.3-7.7) k/uL Lymphocytes # (1.0-4.8) k/uL PT (10.0-12.5) sec INR (<1.2) APTT (22.0-30.0) sec Fibrinogen 504 H (200-500) mg/dL ABG pCO2 32 L (35-45) mmHg ABG HCO3 19 L (21-25) mmol/L ABG O2 Saturation 98.3 H (94-97) % Hemoglobin 9.9 L (13.0-17.5) gm/dL Sodium (137-145) mmol/L Potassium (3.5-5.1) mmol/L Carbon Dioxide (22-30) mmol/L BUN (9-20) mg/dL Creatinine (0.66-1.25) mg/dL Glucose (74-99) mg/dL POC Glucose (mg/dL) (70-110) mg/dL Calcium (8.4-10.2) mg/dL Lactate Dehydrogenase 521 H (120-246) U/L Total Creatine Kinase (30-223) u/L 09/16/24 09/16/24 09/17/24 Range/Units 23:45 23:45 02:15 WBC (3.8-10.6) k/uL RBC (4.30-5.90) m/uL Hgb (13.0-17.5) gm/dL Hct (39.0-53.0) % Neutrophils # (1.3-7.7) k/uL Lymphocytes # (1.0-4.8) k/uL PT (10.0-12.5) sec INR (<1.2) APTT 40.7 H (22.0-30.0) sec Fibrinogen 637 H (200-500) mg/dL ABG pCO2 (35-45) mmHg ABG HCO3 (21-25) mmol/L ABG O2 Saturation (94-97) % Hemoglobin (13.0-17.5) gm/dL Sodium (137-145) mmol/L Potassium (3.5-5.1) mmol/L Carbon Dioxide 18 L (22-30) mmol/L BUN 34 H (9-20) mg/dL Creatinine 1.65 H (0.66-1.25) mg/dL Glucose 170 H (74-99) mg/dL POC Glucose (mg/dL) (70-110) mg/dL Calcium 7.7 L (8.4-10.2) mg/dL Lactate Dehydrogenase 728 H (120-246) U/L Total Creatine Kinase (30-223) u/L 09/17/24 09/17/24 09/17/24 Range/Units 04:00 04:00 04:00 WBC 10.9 H (3.8-10.6) k/uL RBC 3.52 L (4.30-5.90) m/uL Hgb 10.7 L (13.0-17.5) gm/dL Hct 33.6 L (39.0-53.0) % Neutrophils # 9.3 H (1.3-7.7) k/uL Lymphocytes # 0.7 L (1.0-4.8) k/uL PT (10.0-12.5) sec INR (<1.2) APTT (22.0-30.0) sec Fibrinogen 618 H (200-500) mg/dL ABG pCO2 (35-45) mmHg ABG HCO3 (21-25) mmol/L ABG O2 Saturation (94-97) % Hemoglobin (13.0-17.5) gm/dL Sodium (137-145) mmol/L Potassium (3.5-5.1) mmol/L Carbon Dioxide 21 L (22-30) mmol/L BUN 35 H (9-20) mg/dL Creatinine 1.63 H (0.66-1.25) mg/dL Glucose 186 H (74-99) mg/dL POC Glucose (mg/dL) (70-110) mg/dL Calcium 7.8 L (8.4-10.2) mg/dL Lactate Dehydrogenase 927 H (120-246) U/L Total Creatine Kinase (30-223) u/L 09/17/24 09/17/24 09/17/24 Range/Units 06:27 13:05 13:05 WBC (3.8-10.6) k/uL RBC (4.30-5.90) m/uL Hgb (13.0-17.5) gm/dL Hct (39.0-53.0) % Neutrophils # (1.3-7.7) k/uL Lymphocytes # (1.0-4.8) k/uL PT (10.0-12.5) sec INR (<1.2) APTT 37.6 H (22.0-30.0) sec Fibrinogen 572 H (200-500) mg/dL ABG pCO2 (35-45) mmHg ABG HCO3 (21-25) mmol/L ABG O2 Saturation (94-97) % Hemoglobin (13.0-17.5) gm/dL Sodium (137-145) mmol/L Potassium (3.5-5.1) mmol/L Carbon Dioxide (22-30) mmol/L BUN (9-20) mg/dL Creatinine (0.66-1.25) mg/dL Glucose (74-99) mg/dL POC Glucose (mg/dL) 210 H (70-110) mg/dL Calcium (8.4-10.2) mg/dL Lactate Dehydrogenase 990 H (120-246) U/L Total Creatine Kinase (30-223) u/L 09/17/24 09/17/24 Range/Units 13:05 14:23 WBC (3.8-10.6) k/uL RBC (4.30-5.90) m/uL Hgb (13.0-17.5) gm/dL Hct (39.0-53.0) % Neutrophils # (1.3-7.7) k/uL Lymphocytes # (1.0-4.8) k/uL PT (10.0-12.5) sec INR (<1.2) APTT (22.0-30.0) sec Fibrinogen (200-500) mg/dL ABG pCO2 (35-45) mmHg ABG HCO3 (21-25) mmol/L ABG O2 Saturation (94-97) % Hemoglobin (13.0-17.5) gm/dL Sodium 136 L (137-145) mmol/L Potassium 3.2 L (3.5-5.1) mmol/L Carbon Dioxide (22-30) mmol/L BUN 25 H (9-20) mg/dL Creatinine (0.66-1.25) mg/dL Glucose 158 H (74-99) mg/dL POC Glucose (mg/dL) 172 H (70-110) mg/dL Calcium 7.9 L (8.4-10.2) mg/dL Lactate Dehydrogenase (120-246) U/L Total Creatine Kinase (30-223) u/L
--- NOTE | 2024-09-17 17:41 | CA ---
Transthoracic Echo Report Name: Roberto Cage Age: 68 Gender: M : 1955 Exam Date: 09/17/2024 14:37 Exam Location: [place] [facility] Ht (in): 66 Wt (lb): 246 Ordering Physician: Willie Frias DO ([email or web address]) Attending/Referring Phys: Candy [employer] Elisa Humphreys RDCS Procedure CPT: Indications: re: Impella placement Cardiac Hx: Impella Technical Quality: Fair Contrast 1: Total Dose (mL): Contrast 2: Total Dose (mL): MEASUREMENTS (Male / Female) Normal Values FINDINGS Left Ventricle Left Ventricular Assist Device in place. Left ventricular ejection fraction is estimated at 30-35 %. Impella measure 5.2 cm from AO anulus Right Ventricle Right Atrium Left Atrium Mitral Valve Aortic Valve Tricuspid Valve Pulmonic Valve Pericardium No pericardial effusion. Pleural effusion. Aorta CONCLUSIONS Left ventricular ejection fraction 30-35% Left ventricular L measuring 5.2 cm from aortic annulus Pleural effusion noted Previewed by: Dr. Willie Frias DO (Electronically Signed) Final Date: 17 September 2024 17:40
[2024-09-17 18:37] LABS: Glucose,Whole Blood 176 mg/dL (70-110)
[2024-09-17] MEDS: AMPICILLIN-SULBACTAM 3 GM in SODIUM CHLORIDE 0.9% 100 ML IVPB SCH (18:37)
[2024-09-17] MEDS: HEPARIN SODIUM 1,000 UN/ML (10ML VL) IV PRN (19:25)
[2024-09-17 20:06] LABS: Glucose,Whole Blood 198 mg/dL (70-110)
--- NOTE | 2024-09-17 20:16 | P.PN ---
Subjective Patient is seen for follow-up for acute kidney injury. Serum creatinine 1.2 today. Urine output at about 75 cc an hour. Increased to 350 cc for a couple of hours after Lasix 80 mg. Status post cardiac catheterization and Impella placement 09/16/2024 Patient remains on BiPAP. Objective - Vital Signs Vital signs: Vital Signs Temp 98.6 F 09/17/24 16:00 Pulse 71 09/17/24 19:30 Resp 22 09/17/24 19:30 BP 110/78 09/17/24 19:30 Pulse Ox 86 L 09/17/24 19:30 FiO2 50 09/17/24 16:03 Intake & Output 09/17/24 09/17/24 09/18/24 06:59 18:59 06:59 Intake Total 333.836 771.515 5.062 Output Total 395 3550 Balance -61.164 -2778.485 5.062 Weight 111.6 kg Intake: IV 320 220 0.9% NS KVO 220 220 DAPTOmycin 500 mg In 100 Sodium Chloride 0.9% 50 ml @ 100 mls/hr IVPB Q24HR@2100 [facility] Rx#: [id number] Intake, IV Titration 13.836 151.515 5.062 Amount Heparin Sod,Pork in 0.45% 13.186 151.515 5.062 NaCl 25,000 unit In 0.45 % NaCl 1 250ml.bag @ 9.2 UNITS/KG/HR 10.015 mls/hr IV .Q24H [facility] Rx#: [id number] Nitroglycerin-D5w Pmx 50 0.65 mg In Dextrose/Water 1 250ml.bag @ 5 MCG/MIN 1.5 mls/hr IV .Q24H [facility] Rx#: [id number] Hemodialysis 400 Output: Urine 395 1150 Hemodialysis 1400 Hemodialysis Net Amount 1000 Other: Voiding Method Indwelling Catheter Indwelling Catheter ABP, PAP, CO, CI - Last Documented Arterial Blood Pressure 104/50 Pulmonary Artery Pressure 264/264 - Labs CBC & Chem 7: 09/17/24 04:00 09/17/24 13:05 Labs: Abnormal Lab Results - Last 24 Hours (Table) 09/15/24 09/16/24 09/16/24 Range/Units 04:45 20:25 20:26 WBC (3.8-10.6) k/uL RBC (4.30-5.90) m/uL Hgb (13.0-17.5) gm/dL Hct (39.0-53.0) % Neutrophils # (1.3-7.7) k/uL Lymphocytes # (1.0-4.8) k/uL APTT (22.0-30.0) sec Fibrinogen 504 H (200-500) mg/dL ABG pCO2 (35-45) mmHg ABG HCO3 (21-25) mmol/L ABG O2 Saturation (94-97) % Hemoglobin (13.0-17.5) gm/dL Sodium (137-145) mmol/L Potassium (3.5-5.1) mmol/L Carbon Dioxide (22-30) mmol/L BUN (9-20) mg/dL Creatinine (0.66-1.25) mg/dL Glucose (74-99) mg/dL POC Glucose (mg/dL) 177 H (70-110) mg/dL Calcium (8.4-10.2) mg/dL Lactate Dehydrogenase (120-246) U/L Total Creatine Kinase 20 L (30-223) u/L 09/16/24 09/16/24 09/16/24 Range/Units 20:26 21:01 23:45 WBC (3.8-10.6) k/uL RBC (4.30-5.90) m/uL Hgb (13.0-17.5) gm/dL Hct (39.0-53.0) % Neutrophils # (1.3-7.7) k/uL Lymphocytes # (1.0-4.8) k/uL APTT (22.0-30.0) sec Fibrinogen 637 H (200-500) mg/dL ABG pCO2 32 L (35-45) mmHg ABG HCO3 19 L (21-25) mmol/L ABG O2 Saturation 98.3 H (94-97) % Hemoglobin 9.9 L (13.0-17.5) gm/dL Sodium (137-145) mmol/L Potassium (3.5-5.1) mmol/L Carbon Dioxide (22-30) mmol/L BUN (9-20) mg/dL Creatinine (0.66-1.25) mg/dL Glucose (74-99) mg/dL POC Glucose (mg/dL) (70-110) mg/dL Calcium (8.4-10.2) mg/dL Lactate Dehydrogenase 521 H (120-246) U/L Total Creatine Kinase (30-223) u/L 09/16/24 09/17/24 09/17/24 Range/Units 23:45 02:15 04:00 WBC 10.9 H (3.8-10.6) k/uL RBC 3.52 L (4.30-5.90) m/uL Hgb 10.7 L (13.0-17.5) gm/dL Hct 33.6 L (39.0-53.0) % Neutrophils # 9.3 H (1.3-7.7) k/uL Lymphocytes # 0.7 L (1.0-4.8) k/uL APTT 40.7 H (22.0-30.0) sec Fibrinogen (200-500) mg/dL ABG pCO2 (35-45) mmHg ABG HCO3 (21-25) mmol/L ABG O2 Saturation (94-97) % Hemoglobin (13.0-17.5) gm/dL Sodium (137-145) mmol/L Potassium (3.5-5.1) mmol/L Carbon Dioxide 18 L (22-30) mmol/L BUN 34 H (9-20) mg/dL Creatinine 1.65 H (0.66-1.25) mg/dL Glucose 170 H (74-99) mg/dL POC Glucose (mg/dL) (70-110) mg/dL Calcium 7.7 L (8.4-10.2) mg/dL Lactate Dehydrogenase 728 H (120-246) U/L Total Creatine Kinase (30-223) u/L 09/17/24 09/17/24 09/17/24 Range/Units 04:00 04:00 06:27 WBC (3.8-10.6) k/uL RBC (4.30-5.90) m/uL Hgb (13.0-17.5) gm/dL Hct (39.0-53.0) % Neutrophils # (1.3-7.7) k/uL Lymphocytes # (1.0-4.8) k/uL APTT (22.0-30.0) sec Fibrinogen 618 H (200-500) mg/dL ABG pCO2 (35-45) mmHg ABG HCO3 (21-25) mmol/L ABG O2 Saturation (94-97) % Hemoglobin (13.0-17.5) gm/dL Sodium (137-145) mmol/L Potassium (3.5-5.1) mmol/L Carbon Dioxide 21 L (22-30) mmol/L BUN 35 H (9-20) mg/dL Creatinine 1.63 H (0.66-1.25) mg/dL Glucose 186 H (74-99) mg/dL POC Glucose (mg/dL) 210 H (70-110) mg/dL Calcium 7.8 L (8.4-10.2) mg/dL Lactate Dehydrogenase 927 H (120-246) U/L Total Creatine Kinase (30-223) u/L 09/17/24 09/17/24 09/17/24 Range/Units 13:05 13:05 13:05 WBC (3.8-10.6) k/uL RBC (4.30-5.90) m/uL Hgb (13.0-17.5) gm/dL Hct (39.0-53.0) % Neutrophils # (1.3-7.7) k/uL Lymphocytes # (1.0-4.8) k/uL APTT 37.6 H (22.0-30.0) sec Fibrinogen 572 H (200-500) mg/dL ABG pCO2 (35-45) mmHg ABG HCO3 (21-25) mmol/L ABG O2 Saturation (94-97) % Hemoglobin (13.0-17.5) gm/dL Sodium 136 L (137-145) mmol/L Potassium 3.2 L (3.5-5.1) mmol/L Carbon Dioxide (22-30) mmol/L BUN 25 H (9-20) mg/dL Creatinine (0.66-1.25) mg/dL Glucose 158 H (74-99) mg/dL POC Glucose (mg/dL) (70-110) mg/dL Calcium 7.9 L (8.4-10.2) mg/dL Lactate Dehydrogenase 990 H (120-246) U/L Total Creatine Kinase (30-223) u/L 09/17/24 09/17/24 09/17/24 Range/Units 14:23 18:23 18:23 WBC (3.8-10.6) k/uL RBC (4.30-5.90) m/uL Hgb (13.0-17.5) gm/dL Hct (39.0-53.0) % Neutrophils # (1.3-7.7) k/uL Lymphocytes # (1.0-4.8) k/uL APTT (22.0-30.0) sec Fibrinogen 559 H (200-500) mg/dL ABG pCO2 (35-45) mmHg ABG HCO3 (21-25) mmol/L ABG O2 Saturation (94-97) % Hemoglobin (13.0-17.5) gm/dL Sodium (137-145) mmol/L Potassium (3.5-5.1) mmol/L Carbon Dioxide (22-30) mmol/L BUN (9-20) mg/dL Creatinine (0.66-1.25) mg/dL Glucose (74-99) mg/dL POC Glucose (mg/dL) 172 H (70-110) mg/dL Calcium (8.4-10.2) mg/dL Lactate Dehydrogenase 1061 H (120-246) U/L Total Creatine Kinase (30-223) u/L 09/17/24 Range/Units 18:35 WBC (3.8-10.6) k/uL RBC (4.30-5.90) m/uL Hgb (13.0-17.5) gm/dL Hct (39.0-53.0) % Neutrophils # (1.3-7.7) k/uL Lymphocytes # (1.0-4.8) k/uL APTT (22.0-30.0) sec Fibrinogen (200-500) mg/dL ABG pCO2 (35-45) mmHg ABG HCO3 (21-25) mmol/L ABG O2 Saturation (94-97) % Hemoglobin (13.0-17.5) gm/dL Sodium (137-145) mmol/L Potassium (3.5-5.1) mmol/L Carbon Dioxide (22-30) mmol/L BUN (9-20) mg/dL Creatinine (0.66-1.25) mg/dL Glucose (74-99) mg/dL POC Glucose (mg/dL) 176 H (70-110) mg/dL Calcium (8.4-10.2) mg/dL Lactate Dehydrogenase (120-246) U/L Total Creatine Kinase (30-223) u/L Assessment and Plan Assessment: 1. Acute kidney injury secondary to ATN secondary to hypotension and contrast associated acute kidney injury. Baseline creatinine near 1 and is 1.2 today. Urine output has improved. No hydronephrosis noted on renal ultrasound. Started on hemodialysis September 16, 2024 via femoral catheter due to volume overload and oliguria. 2. Right foot toe infection on antibiotics. 3. NSTEMI status post cardiac catheterization on September 13, 2024 which showed triple-vessel disease. S/p Impella assisted LAD PCI on 09/16/2023 4. Diabetes mellitus. 5. Septic shock, now off Levophed. 6. Metabolic acidosis secondary to acute kidney injury and IV fluids. Expect improvement postdialysis. 7. Volume overload. 8. Cardiomyopathy with ejection fraction of 30 to 35% with moderate mitral regurgitation. Plan: Continue with current dose of Lasix. Reevaluate for need for dialysis in a.m.
[2024-09-17] MEDS: NOREPINEPHRINE 4 MG in SODIUM CHLORIDE 0.9% 250 ML IV SCH (20:58)
[2024-09-17] MEDS: LORazepam 2 MG/ML INJ IV STA (22:38)
[2024-09-18] MEDS: AMPICILLIN-SULBACTAM 3 GM in SODIUM CHLORIDE 0.9% 100 ML IVPB SCH (00:16)
[2024-09-18 01:47] LABS: Partial Thromboplastin Time 61.8 sec (22.0-30.0)
[2024-09-18] MEDS: POTASSIUM CHLORIDE 10 MEQ in WATER FOR INJECTION 1 100ML.BAG IVPB SCH (03:34)
[2024-09-18 05:07] LABS: Basophils % (A) 0 %; Eosinophils # (A) 0.1 k/uL (0-0.7); Eosinophils % (A) 0 %; HCT 32.5 % (39.0-53.0); HGB 10.7 gm/dL (13.0-17.5); Hypochromasia Slight; Lymphocytes # (A) 1.2 k/uL (1.0-4.8); Lymphocytes % (A) 7 %; MCH 30.8 pg (25.0-35.0); MCHC 32.8 g/dL (31.0-37.0); MCV 93.9 fL (80.0-100.0); Mean Platelet Volume 9.1; Monocytes # (A) 0.9 k/uL (0-1.0); Monocytes % (A) 5 %; Neutrophils # (A) 16.5 k/uL (1.3-7.7); Neutrophils % (A) 87 %; Platelet Count 229 k/uL (150-450); RBC 3.47 m/uL (4.30-5.90); RDW 15.6 % (11.5-15.5); WBC 18.9 k/uL (3.8-10.6)
[2024-09-18 05:18] LABS: African American GFR (CKD) 62 (>60 ml/min/1.73 sqM); Anion Gap 14 mmol/L; Blood Urea Nitrogen 28 mg/dL (9-20); Carbon Dioxide 20 mmol/L (22-30); Chloride 104 mmol/L (98-107); Glucose 187 mg/dL (74-99); Non-African American GFR(CKD) 54 (>60 ml/min/1.73 sqM); Potassium 4.2 mmol/L (3.5-5.1); Sodium 138 mmol/L (137-145)
[2024-09-18 06:26] LABS: Glucose,Whole Blood 201 mg/dL (70-110)
[2024-09-18] MEDS: LORazepam 2 MG/ML INJ IV STA (06:33)
--- NOTE | 2024-09-18 07:57 | XR ---
EXAMINATION TYPE: XR chest 1V portable DATE OF EXAM: 09/18/2024 CLINICAL HISTORY: Difficulty breathing progress study. Left lung opacification. TECHNIQUE: Single AP portable semiupright view of the chest is obtained. COMPARISON: Chest x-ray from one day earlier and older studies. FINDINGS: Overlying EKG leads are redemonstrated. An additional device overlies the heart similar to prior. Left basilar catheter redemonstrated. The opacified left hemithorax remains present with trac heal shift to the left. Increased interstitial opacities in the right lung redemonstrated. Osseous st ructures are intact. IMPRESSION: Completely opacified left sided hemithorax with left-sided volume loss remains present. N o significant change from one day earlier. [facility], , 09/18/2024 7:54 AM
[2024-09-18 08:46] LABS: Partial Thromboplastin Time 66.7 sec (22.0-30.0)
[2024-09-18] MEDS: LORazepam 2 MG/ML INJ IV PRN (10:19)
--- NOTE | 2024-09-18 11:11 | P.PN ---
Progress Note - Text Cardiology update: Spoke with patient's sonGregory in depth regarding congestive heart failure, kidney failure, respiratory failure. Patient had previously been on hospice after prolonged sepsis hospitalization however had a graduated from hospice approximately 2-3 months ago and had been doing much better at home. Therefore patient was on enrolled in hospice. Patient had been doing somewhat better at home and patient's son would like to trial measures to get patient back to that state. Currently patient has Impella CP helping support his cardiac output however requiring sedation to help patient from pulling out lines. Patient does have altered mental status which may be multifactorial from medications, sepsis, metabolic encephalopathy and may be reversible. Discussed with patient's son stenting of his coronary arteries with hopeful improvement in cardiac output and ability to wean and come off of Impella CP. Patient understands significantly elevated risk however would like to move forward with attempted PCI. Patient has been unable to take off mask to even take oral medications. Given need for Plavix and aspirin discussed with son and likely if unable to take oral medications will need intubation. Discussed plan of care with pulmonology as well. Patient's son understanding and willing to proceed. Likely PCI today.
--- NOTE | 2024-09-18 11:25 | P.GSCN ---
History of Present Illness History of present illness: 68-year-old gentleman patient was seen in the intensive care unit on ventilator patient has history of acute kidney injury patient is on ventilator. Patient also has a septic shock. Respiratory failure and metabolic acidosis patient has history of intrafibrillation. On examination patient was seen in intensive care unit Chest patient has been intubated bilateral crackles noted. 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, NEEDLE ASPIRATION LEFT EYE Q 3 MONTHS, PAIN CL[facility] Past Anesthesia/Blood Transfusion Reactions: No Reported Reaction Past Psychological History: Anxiety Smoking Status: Current every day smoker Past Alcohol Use History: None Reported Past Drug Use History: None Reported - Past Family History Mother Family Medical History: Cancer Additional Family Medical History / Comment(s): BREAST Sister(s) Family Medical History: Cancer Medications and Allergies Home Medications Medication Instructions Recorded Confirmed Type Albuterol Inhaler [Ventolin Hfa 3 puff INHALATION RT-QID PRN 05/21/24 09/10/24 History Inhaler] Tamsulosin [Flomax] 0.4 mg PO HS 06/13/24 09/10/24 History Furosemide [Lasix] 20 mg PO DAILY #14 tab 06/18/24 09/10/24 Rx Spironolactone [Aldactone] 25 mg PO DAILY #7 tablet 06/19/24 09/10/24 Rx Acetaminophen 500 - 1,000 mg PO Q8H PRN 09/10/24 09/10/24 History Haloperidol Oral Soln [Haldol Oral 2 - 4 mg PO Q4H PRN 09/10/24 09/10/24 History Soln] Insulin Glargine (Lantus) [Lantus 20 unit SQ HS 09/10/24 09/10/24 History Vial] LORazepam [Ativan] 0.5 - 1 mg PO Q12H PRN 09/10/24 09/10/24 History Nystatin 100,000 Unit/gm Powd 1 applic TOPICAL TID 09/10/24 09/10/24 History [Mycostatin Powder] Prochlorperazine Suppository 25 mg RECTAL Q8H PRN 09/10/24 09/10/24 History [Compazine] Sennosides/Docusate Sodium [Senna 1 tab PO BID PRN 09/10/24 09/10/24 History Plus 8.6-50 mg Tablet] Allergies Allergy/AdvReac Type Severity Reaction Status Date / Time No Known Allergies Allergy Verified 09/10/24 11:29 Surgical - Exam Vital Signs Temp Pulse Resp BP Pulse Ox 98.1 F 102 H 20 117/69 95 09/10/24 06:11 09/10/24 06:11 09/10/24 06:11 09/10/24 06:11 09/10/24 06:11 Results - Labs 09/18/24 04:45 09/18/24 04:45 Abnormal Lab Results - Last 24 Hours (Table) 09/15/24 09/17/24 09/17/24 Range/Units 04:45 13:05 13:05 WBC (3.8-10.6) k/uL RBC (4.30-5.90) m/uL Hgb (13.0-17.5) gm/dL Hct (39.0-53.0) % RDW (11.5-15.5) % Neutrophils # (1.3-7.7) k/uL APTT 37.6 H (22.0-30.0) sec Fibrinogen 572 H (200-500) mg/dL Sodium (137-145) mmol/L Potassium (3.5-5.1) mmol/L Carbon Dioxide (22-30) mmol/L BUN (9-20) mg/dL Creatinine (0.66-1.25) mg/dL Glucose (74-99) mg/dL POC Glucose (mg/dL) (70-110) mg/dL Calcium (8.4-10.2) mg/dL Lactate Dehydrogenase 990 H (120-246) U/L Total Creatine Kinase 20 L (30-223) u/L 09/17/24 09/17/24 09/17/24 Range/Units 13:05 14:23 18:23 WBC (3.8-10.6) k/uL RBC (4.30-5.90) m/uL Hgb (13.0-17.5) gm/dL Hct (39.0-53.0) % RDW (11.5-15.5) % Neutrophils # (1.3-7.7) k/uL APTT (22.0-30.0) sec Fibrinogen 559 H (200-500) mg/dL Sodium 136 L (137-145) mmol/L Potassium 3.2 L (3.5-5.1) mmol/L Carbon Dioxide (22-30) mmol/L BUN 25 H (9-20) mg/dL Creatinine (0.66-1.25) mg/dL Glucose 158 H (74-99) mg/dL POC Glucose (mg/dL) 172 H (70-110) mg/dL Calcium 7.9 L (8.4-10.2) mg/dL Lactate Dehydrogenase (120-246) U/L Total Creatine Kinase (30-223) u/L 09/17/24 09/17/24 09/17/24 Range/Units 18:23 18:35 20:05 WBC (3.8-10.6) k/uL RBC (4.30-5.90) m/uL Hgb (13.0-17.5) gm/dL Hct (39.0-53.0) % RDW (11.5-15.5) % Neutrophils # (1.3-7.7) k/uL APTT (22.0-30.0) sec Fibrinogen (200-500) mg/dL Sodium (137-145) mmol/L Potassium (3.5-5.1) mmol/L Carbon Dioxide (22-30) mmol/L BUN (9-20) mg/dL Creatinine (0.66-1.25) mg/dL Glucose (74-99) mg/dL POC Glucose (mg/dL) 176 H 198 H (70-110) mg/dL Calcium (8.4-10.2) mg/dL Lactate Dehydrogenase 1061 H (120-246) U/L Total Creatine Kinase (30-223) u/L 09/18/24 09/18/24 09/18/24 Range/Units 01:15 01:15 04:45 WBC 18.9 H (3.8-10.6) k/uL RBC 3.47 L (4.30-5.90) m/uL Hgb 10.7 L (13.0-17.5) gm/dL Hct 32.5 L (39.0-53.0) % RDW 15.6 H (11.5-15.5) % Neutrophils # 16.5 H (1.3-7.7) k/uL APTT 61.8 H (22.0-30.0) sec Fibrinogen 562 H (200-500) mg/dL Sodium (137-145) mmol/L Potassium (3.5-5.1) mmol/L Carbon Dioxide (22-30) mmol/L BUN (9-20) mg/dL Creatinine (0.66-1.25) mg/dL Glucose (74-99) mg/dL POC Glucose (mg/dL) (70-110) mg/dL Calcium (8.4-10.2) mg/dL Lactate Dehydrogenase 994 H (120-246) U/L Total Creatine Kinase (30-223) u/L 09/18/24 09/18/24 09/18/24 Range/Units 04:45 06:25 07:50 WBC (3.8-10.6) k/uL RBC (4.30-5.90) m/uL Hgb (13.0-17.5) gm/dL Hct (39.0-53.0) % RDW (11.5-15.5) % Neutrophils # (1.3-7.7) k/uL APTT 66.7 H (22.0-30.0) sec Fibrinogen 555 H (200-500) mg/dL Sodium (137-145) mmol/L Potassium (3.5-5.1) mmol/L Carbon Dioxide 20 L (22-30) mmol/L BUN 28 H (9-20) mg/dL Creatinine 1.35 H (0.66-1.25) mg/dL Glucose 187 H (74-99) mg/dL POC Glucose (mg/dL) 201 H (70-110) mg/dL Calcium 8.0 L (8.4-10.2) mg/dL Lactate Dehydrogenase (120-246) U/L Total Creatine Kinase (30-223) u/L 09/18/24 Range/Units 07:50 WBC (3.8-10.6) k/uL RBC (4.30-5.90) m/uL Hgb (13.0-17.5) gm/dL Hct (39.0-53.0) % RDW (11.5-15.5) % Neutrophils # (1.3-7.7) k/uL APTT (22.0-30.0) sec Fibrinogen (200-500) mg/dL Sodium (137-145) mmol/L Potassium (3.5-5.1) mmol/L Carbon Dioxide (22-30) mmol/L BUN (9-20) mg/dL Creatinine (0.66-1.25) mg/dL Glucose (74-99) mg/dL POC Glucose (mg/dL) (70-110) mg/dL Calcium (8.4-10.2) mg/dL Lactate Dehydrogenase 918 H (120-246) U/L Total Creatine Kinase (30-223) u/L Diabetes panel 09/17/24 09/18/24 09/18/24 Range/Units 13:05 01:15 04:45 Sodium 136 L 138 (137-145) mmol/L Potassium 3.2 L 3.8 4.2 (3.5-5.1) mmol/L Chloride 102 104 (98-107) mmol/L Carbon Dioxide 22 20 L (22-30) mmol/L BUN 25 H 28 H (9-20) mg/dL Creatinine 1.24 1.35 H (0.66-1.25) mg/dL Glucose 158 H 187 H (74-99) mg/dL Calcium 7.9 L 8.0 L (8.4-10.2) mg/dL Calcium panel 09/17/24 09/18/24 Range/Units 13:05 04:45 Calcium 7.9 L 8.0 L (8.4-10.2) mg/dL Pituitary panel 09/17/24 09/18/24 09/18/24 Range/Units 13:05 01:15 04:45 Sodium 136 L 138 (137-145) mmol/L Potassium 3.2 L 3.8 4.2 (3.5-5.1) mmol/L Chloride 102 104 (98-107) mmol/L Carbon Dioxide 22 20 L (22-30) mmol/L BUN 25 H 28 H (9-20) mg/dL Creatinine 1.24 1.35 H (0.66-1.25) mg/dL Glucose 158 H 187 H (74-99) mg/dL Calcium 7.9 L 8.0 L (8.4-10.2) mg/dL Adrenal panel 09/17/24 09/18/24 09/18/24 Range/Units 13:05 01:15 04:45 Sodium 136 L 138 (137-145) mmol/L Potassium 3.2 L 3.8 4.2 (3.5-5.1) mmol/L Chloride 102 104 (98-107) mmol/L Carbon Dioxide 22 20 L (22-30) mmol/L BUN 25 H 28 H (9-20) mg/dL Creatinine 1.24 1.35 H (0.66-1.25) mg/dL Glucose 158 H 187 H (74-99) mg/dL Calcium 7.9 L 8.0 L (8.4-10.2) mg/dL
--- NOTE | 2024-09-18 11:27 | P.PCN ---
Description of Procedure: Preop diagnosis acute chronic renal failure metabolic acidosis patient is on ventilator Postop the same procedure ultrasound-guided 20 cm dialysis catheter placed right femoral approach Right groin was prepped and draped in Prestel usual sterile manner 1% lidocaine for infiltrated. Ultrasound-guided micropuncture introduced right femoral vein micropuncture guide was passed. 4 [place] dilators were out of the guidewire. Regular guidewire without any resistance dilators were advanced up the guidewire then placed a sheath on the top of the guidewire through the sheath we placed a dialysis catheter 20 cm sheath was removed catheter was flushed with heparin saline and secured with 3-0 nylon dressing applied patient tarted the procedure well
--- NOTE | 2024-09-18 11:34 | P.PN ---
Subjective Progress Note Date: 09/18/24 Principal diagnosis: Sepsis. This is a 68-year-old white male, known history of type 2 diabetes, peripheral vessel occlusive disease secondary to diabetes, patient was admitted on 09/10/2014, presented to the ER with right toe infection. The right big toe has been getting increasingly painful, swollen, red and tender. 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 Seen in the ER, foot x-ray showed moderate to severe soft tissue swelling, patient was admitted with diabetic foot infection. Seen by infectious disease, placed on antibiotics, patient was also seen by vascular surgery and cardiology for elevated troponin. Patient underwent cardiac catheterization today, he was found to have 90% proximal mid LAD stenosis 80% diagonal 190% OM1 100% mid circumflex and 99% mid RCA. Patient was also noted to have slightly elevated left-sided filling pressures, patient was noted to be hypotensive in the [employer], placed on norepinephrine, admitted to the ICU because of hypotension and this consult was initiated. During my evaluation, patient had no shortness of breath, no cough, no wheezing, he had some vague chest discomfort. Patient is being considered for possible Impella protected PCI of LAD and RCA down the line, concerned about his renal status and contrast media. Labs on this patient today showed leukocytosis with WBC count of 14.2 hemoglobin is 11 electrolytes are normal BUN is 26 creatinine 1.23. Patient has been seen by infectious disease on the case, presently on Unasyn 3 g every 6 hours. Preliminary report on blood cultures since admission has been negative. Pulmonary trejo, patient has been a smoker over the years, he had at least a [id number] smoking history since age 13. Has not been on any inhalers and has not been diagnosed with COPD. Patient was seen today on 09/14/2023, remains in the ICU, patient has been seen by many consultants including cardiology, infectious disease, nephrology, patient is developing worsening renal failure picture, seen by nephrology, recommended Lasix, and bicarb. Patient is on Unasyn for his big toe infection. Patient has leukocytosis with WBC of 16.9 hemoglobin 10.9 bicarb is 17 BUN is 30 creatinine is up to 1.62. Patient is off norepinephrine, not requiring any pressors, he had norepinephrine last night shortly after he came back from the cardiac catheterization and he is now hemodynamically stable off norepinephrine. Pulmonary trejo no cough no wheezing no shortness of breath his acute kidney injury felt to be related to hypotension and contrast media his initial presentation was a presentation of non-ST elevation myocardial infarction and he was found to have significant triple-vessel coronary artery disease. Chest x- ray did not show evidence of fluid overload patient did receive Lasix and he remains on Lasix as recommended by nephrology. Patient was seen today on 09/15/2023, patient remains in the ICU, confused, pulling his IV lines, remains on Unasyn and daptomycin, remains on Lasix, patient developed worsening renal failure, that is being addressed by nephrology. No chest x-ray was done today, however he is scheduled to have a chest x-ray in a.m., presently on room air, does not seem to be in any distress, but is intermittently confused, requiring a sitter to keep a close watch on the patient. WBC count is 13.2 hemoglobin 11.5, electrolytes are normal BUN is 37, creatinine is up to 1.97. Patient is being followed by many consultants including cardiology, infectious disease, and nephrology. Progress note dated September 16, 2024. This the patient was admitted on September 10. He came in initially with diabetic foot infection. He had a heart catheterization on September 12, which revealed significant coronary artery disease. He came to the ICU on the , because of hypotension. The patient is seen today in room 264. He is getting hemodialysis. He is on 4-1/2 L of oxygen. He is getting heparin via weight- based protocol, and saline at 50 cc an hour. The plan for him is an Impella protected PCI, by Dr. Frias, sometime this week possibly. Currently, white count 9.3, hemoglobin 10.9, hematocrit 34.4, platelet count 193,000. PTT is 55.2. Sodium 140, potassium 3.9, chlorides 108, CO2 14 anion gap 18, BUN 38, creatinine 2.12. Calcium is 8. Glucose is 174. Chest x-ray is consistent with pulmonary edema. Progress note dated September 17, 2024. The patient is seen today in room 264. The patient was taken to the catheterization laboratory yesterday, for an Impella protected catheterization, and possible stent. Apparently no stent was placed. The patient is currently on BiPAP, with settings of 12/5, and 40%. The patient is having hemodialysis today, with removal of 1 L of fluid. The patient's blood gases yesterday showed a pO2 of 97, pCO2 of 32, pH is 7.39. He is on IV heparin via weight-based protocol. He is getting saline at 20 cc an hour. Apparently he will go back to the catheterization laboratory tomorrow. White count 10.9, hemoglobin 10.7, hematocrit 33.6, with a normal platelet count. Sodium 138, potassium 4.2, chl orides 106, CO2 21, BUN 35, creatinine 1.63. Glucose is 210. Calcium is 7.8. Chest x-ray shows complete opacification of the left hemithorax. Progress note dated September 18, 2024. The patient is seen today in room 264. The patient remains on BiPAP of 14/9, and 70%. The patient is getting saline at 20 cc an hour, and IV heparin. Current labs include a white count 18.9, hemoglobin 10.7, hematocrit 32.5, and a platelet count of 229,000. Sodium 138, potassium 4.2, chlorides 104, CO2 20, BUN 28, and creatinine 1.35. Glucose was 201. Lactic acid 1.2. Calcium 8.0. Chest x-ray shows a completely opacified left sided hemithorax with volume loss. Objective - Vital Signs Vital signs: Vital Signs Temp 97.9 F 09/18/24 08:00 Pulse 64 09/18/24 10:15 Resp 22 09/18/24 10:15 BP 103/77 09/18/24 10:15 Pulse Ox 100 09/18/24 10:15 FiO2 100 09/18/24 11:13 Intake & Output 09/17/24 09/18/24 09/18/24 18:59 06:59 18:59 Intake Total 857.864 8991.062 260.930 Output Total 3550 735 325 Balance -2778.485 310.062 -64.070 Weight 111.4 kg Intake: IV 220 340 108 0.9% NS KVO 220 240 60 Ampicillin-Sulbactam 3 gm 100 In Sodium Chloride 0.9% 100 ml @ 200 mls/hr IVPB Q8H [facility] Rx#:[id number] Impella Flow 39 Pressure Bag 9 Intake, IV Titration 151.515 705.062 152.930 Amount Ampicillin-Sulbactam 3 gm 100 In Sodium Chloride 0.9% 100 ml @ 200 mls/hr IVPB Q8H [facility] Rx#:[id number] Heparin Sod,Pork in 0.45% 151.515 5.062 NaCl 25,000 unit In 0.45 % NaCl 1 250ml.bag @ 9.2 UNITS/KG/HR 10.015 mls/hr IV .Q24H [facility] Rx#: [id number] Norepinephrine 4 mg In 152.930 Sodium Chloride 0.9% 250 ml @ 0.03 MCG/KG/MIN 12. 756 mls/hr IV .[id number] [facility] Rx#:[id number] Potassium Chloride 10 meq 200 In Water For Injection 1 100ml.bag @ 100 mls/hr IVPB Q1H [facility] Rx#: [id number] Potassium Chloride 10 meq 400 In Water For Injection 1 100ml.bag @ 100 mls/hr IVPB Q1HR [facility] Rx#: [id number] Hemodialysis 400 Output: Urine 1150 735 325 Hemodialysis 1400 Hemodialysis Net Amount 1000 Other: Voiding Method Indwelling Catheter Indwelling Catheter Indwelling Catheter ABP, PAP, CO, CI - Last Documented Arterial Blood Pressure 110/61 Pulmonary Artery Pressure 264/264 - Exam No acute distress, somnolent, with BiPAP mask in place. The patient does arouse. HEENT examination is grossly unremarkable. Mucous membranes are moist. No oral lesions. Neck supple. Full range of motion. No adenopathy thyromegaly or neck vein distention. Cardiovascular examination reveals regular rhythm rate. S1-S2 normal. No S3 or S4. Soft systolic murmur is noted. Lungs reveal scattered rhonchi and crackles. Breath sounds equal. No wheezes. Abdomen soft bowel sounds are heard. No masses or tenderness. Extremities are intact. No cyanosis or clubbing. There is lower extremity edema. Gangrenous changes noted in the right big toe. Skin is without rash or lesion. Neurologic examination is brief but nonfocal. - Labs CBC & Chem 7: 09/18/24 04:45 09/18/24 04:45 Labs: Abnormal Lab Results - Last 24 Hours (Table) 09/15/24 09/17/24 09/17/24 Range/Units 04:45 13:05 13:05 WBC (3.8-10.6) k/uL RBC (4.30-5.90) m/uL Hgb (13.0-17.5) gm/dL Hct (39.0-53.0) % RDW (11.5-15.5) % Neutrophils # (1.3-7.7) k/uL APTT 37.6 H (22.0-30.0) sec Fibrinogen 572 H (200-500) mg/dL Sodium (137-145) mmol/L Potassium (3.5-5.1) mmol/L Carbon Dioxide (22-30) mmol/L BUN (9-20) mg/dL Creatinine (0.66-1.25) mg/dL Glucose (74-99) mg/dL POC Glucose (mg/dL) (70-110) mg/dL Calcium (8.4-10.2) mg/dL Lactate Dehydrogenase 990 H (120-246) U/L Total Creatine Kinase 20 L (30-223) u/L 09/17/24 09/17/24 09/17/24 Range/Units 13:05 14:23 18:23 WBC (3.8-10.6) k/uL RBC (4.30-5.90) m/uL Hgb (13.0-17.5) gm/dL Hct (39.0-53.0) % RDW (11.5-15.5) % Neutrophils # (1.3-7.7) k/uL APTT (22.0-30.0) sec Fibrinogen 559 H (200-500) mg/dL Sodium 136 L (137-145) mmol/L Potassium 3.2 L (3.5-5.1) mmol/L Carbon Dioxide (22-30) mmol/L BUN 25 H (9-20) mg/dL Creatinine (0.66-1.25) mg/dL Glucose 158 H (74-99) mg/dL POC Glucose (mg/dL) 172 H (70-110) mg/dL Calcium 7.9 L (8.4-10.2) mg/dL Lactate Dehydrogenase (120-246) U/L Total Creatine Kinase (30-223) u/L 09/17/24 09/17/24 09/17/24 Range/Units 18:23 18:35 20:05 WBC (3.8-10.6) k/uL RBC (4.30-5.90) m/uL Hgb (13.0-17.5) gm/dL Hct (39.0-53.0) % RDW (11.5-15.5) % Neutrophils # (1.3-7.7) k/uL APTT (22.0-30.0) sec Fibrinogen (200-500) mg/dL Sodium (137-145) mmol/L Potassium (3.5-5.1) mmol/L Carbon Dioxide (22-30) mmol/L BUN (9-20) mg/dL Creatinine (0.66-1.25) mg/dL Glucose (74-99) mg/dL POC Glucose (mg/dL) 176 H 198 H (70-110) mg/dL Calcium (8.4-10.2) mg/dL Lactate Dehydrogenase 1061 H (120-246) U/L Total Creatine Kinase (30-223) u/L 09/18/24 09/18/24 09/18/24 Range/Units 01:15 01:15 04:45 WBC 18.9 H (3.8-10.6) k/uL RBC 3.47 L (4.30-5.90) m/uL Hgb 10.7 L (13.0-17.5) gm/dL Hct 32.5 L (39.0-53.0) % RDW 15.6 H (11.5-15.5) % Neutrophils # 16.5 H (1.3-7.7) k/uL APTT 61.8 H (22.0-30.0) sec Fibrinogen 562 H (200-500) mg/dL Sodium (137-145) mmol/L Potassium (3.5-5.1) mmol/L Carbon Dioxide (22-30) mmol/L BUN (9-20) mg/dL Creatinine (0.66-1.25) mg/dL Glucose (74-99) mg/dL POC Glucose (mg/dL) (70-110) mg/dL Calcium (8.4-10.2) mg/dL Lactate Dehydrogenase 994 H (120-246) U/L Total Creatine Kinase (30-223) u/L 09/18/24 09/18/24 09/18/24 Range/Units 04:45 06:25 07:50 WBC (3.8-10.6) k/uL RBC (4.30-5.90) m/uL Hgb (13.0-17.5) gm/dL Hct (39.0-53.0) % RDW (11.5-15.5) % Neutrophils # (1.3-7.7) k/uL APTT 66.7 H (22.0-30.0) sec Fibrinogen 555 H (200-500) mg/dL Sodium (137-145) mmol/L Potassium (3.5-5.1) mmol/L Carbon Dioxide 20 L (22-30) mmol/L BUN 28 H (9-20) mg/dL Creatinine 1.35 H (0.66-1.25) mg/dL Glucose 187 H (74-99) mg/dL POC Glucose (mg/dL) 201 H (70-110) mg/dL Calcium 8.0 L (8.4-10.2) mg/dL Lactate Dehydrogenase (120-246) U/L Total Creatine Kinase (30-223) u/L 09/18/24 Range/Units 07:50 WBC (3.8-10.6) k/uL RBC (4.30-5.90) m/uL Hgb (13.0-17.5) gm/dL Hct (39.0-53.0) % RDW (11.5-15.5) % Neutrophils # (1.3-7.7) k/uL APTT (22.0-30.0) sec Fibrinogen (200-500) mg/dL Sodium (137-145) mmol/L Potassium (3.5-5.1) mmol/L Carbon Dioxide (22-30) mmol/L BUN (9-20) mg/dL Creatinine (0.66-1.25) mg/dL Glucose (74-99) mg/dL POC Glucose (mg/dL) (70-110) mg/dL Calcium (8.4-10.2) mg/dL Lactate Dehydrogenase 918 H (120-246) U/L Total Creatine Kinase (30-223) u/L Assessment and Plan Assessment: Gangrenous right big toe. Acute non-ST segment elevation myocardial infarction. S/P Impella protected cardiac catheterization, September 16, 2024. Elective intubation/mechanical ventilation, 09/18/2024. Severe coronary artery disease. Acute kidney injury/ATN, secondary to hypotension, and contrast. Severe ischemic cardiomyopathy. Tobacco dependence syndrome. Probable COPD. Peripheral vascular occlusive disease. Hyperlipidemia. Hypotension, likely secondary to cardiomyopathy, and sepsis. Metabolic encephalopathy. Plan: Plan dated September 16, 2024. The patient is seen today in room 264. Currently, he is on oxygen at 4.5 L by nasal cannula. He is getting IV heparin via weight-based protocol, and saline at 50 cc an hour. The patient was admitted on 10 September, and, came to the intensive care unit on the , where he had a heart catheterization, showing coronary disease, and hypotension. Labs, x-rays, and all medications are reviewed. I did speak to cardiology, and they wanted to proceed with a Impella protected PCI. The patient may end up on mechanical ventilation, although BiPAP could be tried prior. Currently, the patient is on appropriate medications, including, Unasyn, and daptomycin. Infectious diseases is following, as is nephrology. Plan dated September 17, 2024. The patient went for heart catheterization yesterday. An Impella device was placed. He continues on the Impella today. He is currently on BiPAP, with settings of 12/5, and 40%. The patient will have hemodialysis today, with 1 L being removed. The patient apparently will be going back to the catheterization laboratory September 18, according to the nurse. The patient continues on IV heparin. Blood gases yesterday showed a pO2 of 97, pCO2 32, pH is 7.39. All labs, x-rays, medications are reviewed. The patient continues on antibiotics. We will continue to follow make recommendations. Prognosis is guarded. Plan dated September 18, 2024. The patient remains on the Impella device. The patient will be electively i ntubated, by anesthesia, and placed on mechanical ventilator, with propofol for sedation. The plan is for the patient to go back to the catheterization laboratory later today. I spoke to the space sciences director, Dr. Frias. Labs, x- rays, and all medications are reviewed. The patient is overall prognosis remains very guarded. The patient continues on IV heparin, and saline at 20 cc an hour. In addition, he continues on Unasyn. He has diffuse anasarca, and gangrenous changes on his right great toe. Overall prognosis is mentioned, is poor. Nonetheless, apparently the son does not want to make the patient a comfort care patient or DNR patient. Time with Patient: Greater than 30
[2024-09-18 11:55] LABS: Glucose,Whole Blood 189 mg/dL (70-110)
--- NOTE | 2024-09-18 12:01 | XR ---
EXAMINATION TYPE: XR chest 1V portable DATE OF EXAM: 09/18/2024 CLINICAL HISTORY: Difficulty breathing had to be intubated. TECHNIQUE: Single AP portable supine view of the chest is obtained. COMPARISON: Chest x-ray from earlier today FINDINGS: The new orogastric tube projects below diaphragm. The new endotracheal tube terminates jus t below the clavicles approximately 2 to 3 cm above the catie. A device or catheter overlies the heart similar to prior from inferior approach. Overlying Left basil ar catheter redemonstrated. The opacified left hemithorax remains present with tracheal shift to the left. Increased opacity in the right lower lung is noted. Osseous structures are intact. IMPRESSION: 1. New endotracheal and orogastric tubes are satisfactory in position. 2. Worsening right lower lung opacity. Stable opacified left hemithorax. [facility], , 09/18/2024 11:58 AM
[2024-09-18 12:40] LABS: ABG Base Excess 0.1 mmol/L; ABG HCO3 24 mmol/L (21-25); ABG Oxygen Saturation >100.0 % (94-97); ABG PCO2 33 mmHg (35-45); ABG PH 7.47 (7.35-7.45); ABG PO2 224 mmHg (83-108); ABG TCO2 25 mmol/L (19-24); Allen Test Performed? Yes
--- NOTE | 2024-09-18 12:56 | PN ---
PROGRESS NOTE SUBJECTIVE: Mr. Cage is a 68-year-old gentleman with renal failure, respiratory failure, and kidney failure, who has an Impella device secondary to poor cardiac output, has altered mental status including metabolic encephalopathy. The patient's white cell count is elevated and is currently being treated with antibiotics. OBJECTIVE: VITAL SIGNS: Heart rate is 64 beats per minute, blood pressure is 103/77, respiratory rate is 18, O2 saturation is 100%. CHEST: Reveals occasional rhonchi with diminished air entry. HEART: Reveals first and second heart sounds. Systolic murmur at the left lower sternal border. LABORATORY DATA: Labs show a white cell count of 18, hemoglobin of 10.7, potassium of 4.2, creatinine is 1.3. ASSESSMENT AND PLAN: 1. Cardiogenic shock, status post Impella device placement. 2. Acute renal failure, on hemodialysis. 3. Multivessel coronary artery disease. PLAN: Please read a note dictated by the chief digital officer regarding the plan for coronary intervention. MMODL / IJN: [id number] /
[2024-09-18] MEDS: CLOPIDOGREL 75 MG TAB PO STA (13:09)
[2024-09-18] MEDS: ASPIRIN 325 MG TAB PO STA (13:12)
[2024-09-18] MEDS: CISATRACURIUM 2 MG/ML 5 ML VIAL IV ONE ×2 (14:18→15:37)
--- NOTE | 2024-09-18 15:24 | XR ---
EXAMINATION TYPE: XR chest 1V portable DATE OF EXAM: 09/18/2024 3:11 PM COMPARISON: None CLINICAL INDICATION: Male, 68 years old with history of Central Line placement; [facility] TECHNIQUE: XR chest 1V portable Frontal view of the chest. FINDINGS: Lungs/Pleura: Near-complete opacification the left lung. Right lower lung airspace opacities and blun ting of the costophrenic angle. Pulmonary vascularity: Unremarkable. Heart/mediastinum: Cardiomediastinal silhouette is unremarkable. Musculoskeletal: No acute osseous pathology. Other findings: None Lines/Tubes: Endotracheal tube with distal tip 4.6 cm above the catie. Nasogastric tube with its distal tip and side-port projecting under the diaphragm. Left internal jugular central venous catheter with distal tip at the cavoatrial junction. IMPRESSION: 1. Near complete opacification of the left lung likely secondary to large pleural effusion. 2. Small right pleural effusion. 3. Support tubes and line in appropriate position. [facility], , 09/18/2024 3:22 PM
[2024-09-18 16:21] LABS: Glucose,Whole Blood 187 mg/dL (70-110)
[2024-09-18 16:26] LABS: Partial Thromboplastin Time 69.2 sec (22.0-30.0)
[2024-09-18 16:27] LABS: Potassium 3.2 mmol/L (3.5-5.1)
--- NOTE | 2024-09-18 16:31 | P.PN ---
Subjective Progress Note Date: 09/18/24 Hospital Course: 68-year-old male with PMH of DM type II, diabetic neuropathy, BPH, who presented to ED ED on. Pain, swelling, redness. n the ED he underwent extensive evaluation. BP 117/69, HR 103, T 98.1F, RR 20, 95% on RA. CBC, Coag panel, CMP significant for WBC 15.4, RBC 3.85, Hg 11.7, Hct 36, Na 136, BUN 23, glu 196, alk phos 22.1. Lactic acid 1.4. Mag 2.1. CRP 8.2. A1c 8.1. Foot XR showed moderate to severe diffuse soft tissue swelling with persistent linear 6 mm soft tissue foreign body at the level of 2nd proximal phalanx. Patient was started on Vancomycin and Zosyn and admitted for further workup and management. ID consulted recommended Vascular Sx consult. Antibiotics switched to Vancomycin and Unasyn by ID. Vascular Sx recommended amputation of the right big toe which was initially scheduled for 09/12. Patient reports shortness of breath on 09/11, CXR showed cardiomegaly and pulmonary vascular congestion for which he was started on Lasix IV. He developed chest pain on 09/12, Troponin 0.045, 0.043, started on Heparin drip and Cardiology consulted. He underwent cardiac cath on 09/13 which showed 90% proximal mid LAD stenosis, diagonal one 80%, OM1 90%, mid circumflex 100%, 99% mid RCA stenosis. He was hypotensive during the procedure which resulted in transfer to ICU on Levophed. Levophed was weaned off on 09/14. Repeat Echo showed EF 30-35% with inferior wall hypokinesis, moderate MR. Nephrology consulted for low urine output and SKYLA. No improvement in urine output with Lasix IV challenge. HD catheter inserted by Vascular on 09/15 for hemodialysis. Right femoral hemodialysis catheter placed on 09/18.ID switched Vancomycin for Daptomycin on 09/14. Patient underwent right heart cath with placement of Impella for cardiogenic shock in mid kidney and respiratory failure, likely plan for another heart cath on 09/18. Cardiology had extensive discussion with patient's son, patient was previously under hospice care however improved significantly and hospice was discontinued, patient seen and accepted risk of intubation and would like to proceed with the procedure. Prognosis is guarded. Pertinent Imaging: Chest x-ray showed near complete opacification of the left lung,, likely large effusion, small right pleural effusion Subjective: Patient is confused, unable to participate in ROS, soft restraint Pertinent positives and negatives as discussed above, a complete review of systems was performed and all other systems are negative. Vitals Signs Reviewed. General: [], [no distress], [appears at stated age], obese, lethargic Derm: [warm], [dry] Head: [atraumatic], [normocephalic], [symmetric] Eyes: [EOMI], [no lid lag], [anicteric sclera] Mouth: [no lip lesion], [mucus membranes moist] Cardiovascular: [S1S2 reg], [no murmur] Lungs: [CTA bilateral], very diminished breath sounds on the left] , [no accessory muscle use] Abdominal: [soft], [ nontender to palpation], [no guarding], [no appreciable organomegaly] Ext 4 and lower extremity edema ,scrotal edema Neuro: [ CN II-XI grossly intact], [no focal neuro deficits] Psych: Confused Data Reviewed Today: Pertinent Labs: Leukocytosis worsening at 11, stable hemoglobin 10.7, platelet count normal, VBG showed pH of 7.47, pCO2 33, pO2 224, sodium 138, potassium 3.2, creatinine 135, glucose is fairly controlled Assessment and Plan: [NSTEMI status post heart cath with Impella on 09/16/2024 Cardiogenic shock/ischemic cardiomyopathy plan acute HFrEF exacerbation EF 30 to 35% Acute hypoxic respiratory failure, left lung opacification -Plan for another heart catheter on 09/18, patient will require endotracheal intubation -Continue aspirin, atorvastatin -On IV Lasix 80 twice daily -Cardiology on board -Continue heparin drip -Pulmonology following -Prognosis guarded SKYLA secondary to ATN in the settings of hypotension, contrast associated UTI Oliguria -On hemodialysis since 09/16/2024 via femoral catheter, another femoral catheter placed 09/18 -Nephrology following, HD 09/18 Sepsis secondary to cellulitis. Osteomyelitis of the right great toe, gangrenous toe: Continue Unasyn 3g IV TID, Daptomycin 500 mg IV QD. ID and Vasc ular on board. Plans for amputation when stable with Vascular. History of hypertension Chronic tobacco use History of hyperlipidemia History of diabetes: Continue ISS, Accu-Cheks, hypoglycemia protocol DVT ppx: heparin Anticipated discharge place: Cpending clinical stability Anticipated discharge time: [pending clinical stability Objective - Vital Signs Vital signs: Vital Signs Temp 97.9 F 09/18/24 08:00 Pulse 60 09/18/24 15:30 Resp 20 09/18/24 15:30 BP 105/67 09/18/24 15:30 Pulse Ox 96 09/18/24 15:30 FiO2 60 09/18/24 15:31 Intake & Output 09/17/24 09/18/24 09/18/24 18:59 06:59 18:59 Intake Total 686.273 3056.062 651.659 Output Total 3550 735 960 Balance -2778.485 310.062 -308.341 Weight 111.4 kg Intake: IV 220 340 354 0.9% NS KVO 220 240 110 Ampicillin-Sulbactam 3 gm 100 100 In Sodium Chloride 0.9% 100 ml @ 200 mls/hr IVPB Q8H [facility] Rx#:[id number] Impella Flow 117 Pressure Bag 27 Intake, IV Titration 151.515 705.062 237.659 Amount Ampicillin-Sulbactam 3 gm 100 In Sodium Chloride 0.9% 100 ml @ 200 mls/hr IVPB Q8H [facility] Rx#:[id number] Heparin Sod,Pork in 0.45% 151.515 5.062 NaCl 25,000 unit In 0.45 % NaCl 1 250ml.bag @ 9.2 UNITS/KG/HR 10.015 mls/hr IV .Q24H [facility] Rx#: [id number] Norepinephrine 4 mg In 182.127 Sodium Chloride 0.9% 250 ml @ 0.03 MCG/KG/MIN 12. 756 mls/hr IV .[id number] [facility] Rx#:[id number] Potassium Chloride 10 meq 200 In Water For Injection 1 100ml.bag @ 100 mls/hr IVPB Q1H [facility] Rx#: [id number] Potassium Chloride 10 meq 400 In Water For Injection 1 100ml.bag @ 100 mls/hr IVPB Q1HR [facility] Rx#: [id number] propofoL 1,000 mg In 55.532 Empty Bag 1 bag @ 15 MCG/ KG/MIN 10.026 mls/hr IV . Q9H59M [facility] Rx#:[id number] Hemodialysis 400 Other 60 Output: Urine 1150 735 960 Hemodialysis 1400 Hemodialysis Net Amount 1000 Other: Voiding Method Indwelling Catheter Indwelling Catheter Indwelling Catheter ABP, PAP, CO, CI - Last Documented Arterial Blood Pressure 107/58 Pulmonary Artery Pressure 264/264 - Labs CBC & Chem 7: 09/18/24 04:45 09/18/24 16:00 Labs: Abnormal Lab Results - Last 24 Hours (Table) 09/17/24 09/17/24 09/17/24 Range/Units 18:23 18:23 18:35 WBC (3.8-10.6) k/uL RBC (4.30-5.90) m/uL Hgb (13.0-17.5) gm/dL Hct (39.0-53.0) % RDW (11.5-15.5) % Neutrophils # (1.3-7.7) k/uL APTT (22.0-30.0) sec Fibrinogen 559 H (200-500) mg/dL ABG pH (7.35-7.45) ABG pCO2 (35-45) mmHg ABG pO2 (83-108) mmHg ABG Total CO2 (19-24) mmol/L ABG O2 Saturation (94-97) % Hemoglobin (13.0-17.5) gm/dL Potassium (3.5-5.1) mmol/L Carbon Dioxide (22-30) mmol/L BUN (9-20) mg/dL Creatinine (0.66-1.25) mg/dL Glucose (74-99) mg/dL POC Glucose (mg/dL) 176 H (70-110) mg/dL Calcium (8.4-10.2) mg/dL Lactate Dehydrogenase 1061 H (120-246) U/L 09/17/24 09/18/24 09/18/24 Range/Units 20:05 01:15 01:15 WBC (3.8-10.6) k/uL RBC (4.30-5.90) m/uL Hgb (13.0-17.5) gm/dL Hct (39.0-53.0) % RDW (11.5-15.5) % Neutrophils # (1.3-7.7) k/uL APTT 61.8 H (22.0-30.0) sec Fibrinogen 562 H (200-500) mg/dL ABG pH (7.35-7.45) ABG pCO2 (35-45) mmHg ABG pO2 (83-108) mmHg ABG Total CO2 (19-24) mmol/L ABG O2 Saturation (94-97) % Hemoglobin (13.0-17.5) gm/dL Potassium (3.5-5.1) mmol/L Carbon Dioxide (22-30) mmol/L BUN (9-20) mg/dL Creatinine (0.66-1.25) mg/dL Glucose (74-99) mg/dL POC Glucose (mg/dL) 198 H (70-110) mg/dL Calcium (8.4-10.2) mg/dL Lactate Dehydrogenase 994 H (120-246) U/L 09/18/24 09/18/24 09/18/24 Range/Units 04:45 04:45 06:25 WBC 18.9 H (3.8-10.6) k/uL RBC 3.47 L (4.30-5.90) m/uL Hgb 10.7 L (13.0-17.5) gm/dL Hct 32.5 L (39.0-53.0) % RDW 15.6 H (11.5-15.5) % Neutrophils # 16.5 H (1.3-7.7) k/uL APTT (22.0-30.0) sec Fibrinogen (200-500) mg/dL ABG pH (7.35-7.45) ABG pCO2 (35-45) mmHg ABG pO2 (83-108) mmHg ABG Total CO2 (19-24) mmol/L ABG O2 Saturation (94-97) % Hemoglobin (13.0-17.5) gm/dL Potassium (3.5-5.1) mmol/L Carbon Dioxide 20 L (22-30) mmol/L BUN 28 H (9-20) mg/dL Creatinine 1.35 H (0.66-1.25) mg/dL Glucose 187 H (74-99) mg/dL POC Glucose (mg/dL) 201 H (70-110) mg/dL Calcium 8.0 L (8.4-10.2) mg/dL Lactate Dehydrogenase (120-246) U/L 09/18/24 09/18/24 09/18/24 Range/Units 07:50 07:50 11:53 WBC (3.8-10.6) k/uL RBC (4.30-5.90) m/uL Hgb (13.0-17.5) gm/dL Hct (39.0-53.0) % RDW (11.5-15.5) % Neutrophils # (1.3-7.7) k/uL APTT 66.7 H (22.0-30.0) sec Fibrinogen 555 H (200-500) mg/dL ABG pH (7.35-7.45) ABG pCO2 (35-45) mmHg ABG pO2 (83-108) mmHg ABG Total CO2 (19-24) mmol/L ABG O2 Saturation (94-97) % Hemoglobin (13.0-17.5) gm/dL Potassium (3.5-5.1) mmol/L Carbon Dioxide (22-30) mmol/L BUN (9-20) mg/dL Creatinine (0.66-1.25) mg/dL Glucose (74-99) mg/dL POC Glucose (mg/dL) 189 H (70-110) mg/dL Calcium (8.4-10.2) mg/dL Lactate Dehydrogenase 918 H (120-246) U/L 09/18/24 09/18/24 09/18/24 Range/Units 12:38 16:00 16:00 WBC (3.8-10.6) k/uL RBC (4.30-5.90) m/uL Hgb (13.0-17.5) gm/dL Hct (39.0-53.0) % RDW (11.5-15.5) % Neutrophils # (1.3-7.7) k/uL APTT 69.2 H (22.0-30.0) sec Fibrinogen (200-500) mg/dL ABG pH 7.47 H (7.35-7.45) ABG pCO2 33 L (35-45) mmHg ABG pO2 224 H (83-108) mmHg ABG Total CO2 25 H (19-24) mmol/L ABG O2 Saturation >100.0 H (94-97) % Hemoglobin 10.1 L (13.0-17.5) gm/dL Potassium 3.2 L (3.5-5.1) mmol/L Carbon Dioxide (22-30) mmol/L BUN (9-20) mg/dL Creatinine (0.66-1.25) mg/dL Glucose (74-99) mg/dL POC Glucose (mg/dL) (70-110) mg/dL Calcium (8.4-10.2) mg/dL Lactate Dehydrogenase 802 H (120-246) U/L 09/18/24 Range/Units 16:20 WBC (3.8-10.6) k/uL RBC (4.30-5.90) m/uL Hgb (13.0-17.5) gm/dL Hct (39.0-53.0) % RDW (11.5-15.5) % Neutrophils # (1.3-7.7) k/uL APTT (22.0-30.0) sec Fibrinogen (200-500) mg/dL ABG pH (7.35-7.45) ABG pCO2 (35-45) mmHg ABG pO2 (83-108) mmHg ABG Total CO2 (19-24) mmol/L ABG O2 Saturation (94-97) % Hemoglobin (13.0-17.5) gm/dL Potassium (3.5-5.1) mmol/L Carbon Dioxide (22-30) mmol/L BUN (9-20) mg/dL Creatinine (0.66-1.25) mg/dL Glucose (74-99) mg/dL POC Glucose (mg/dL) 187 H (70-110) mg/dL Calcium (8.4-10.2) mg/dL Lactate Dehydrogenase (120-246) U/L
--- NOTE | 2024-09-18 17:50 | XR ---
EXAMINATION TYPE: XR chest 1V portable DATE OF EXAM: 09/18/2024 CLINICAL HISTORY: Post bronchoscopy and washout. TECHNIQUE: Single AP portable supine view of the chest is obtained. COMPARISON: Chest x-ray from earlier today and older studies FINDINGS: Stable endotracheal tube and orogastric tube. Stable left internal jugular central venous catheter. Improved aeration in the left lung after bronchoscopy. Persistent bilateral left greater than right i ncreased opacities. Catheter overlying the heart from the inferior approach is redemonstrated termina ting near the cardiac apex. Osseous structures are intact. IMPRESSION: Improved aeration left lung after bronchoscopy without pneumothorax. Persistent small to moderate-sized left greater than right pleural effusions and bilateral lower lung edema and/or acute infiltrates. [facility], , 09/18/2024 5:48 PM
--- NOTE | 2024-09-18 19:30 | P.PN ---
Subjective Patient is seen for follow-up for acute kidney injury. Serum creatinine 1.3 today. Urine output at about 100-60 cc an hour. Status post cardiac catheterization and Impella placement 09/16/2024 for cardiogenic shock. Patient had been on BiPAP however respiratory status was worsening and patient needed NG tube placement to receive aspirin and Plavix prior to coronary intervention today. He is therefore being intubated. Patient is scheduled for hemodialysis today. Objective - Vital Signs Vital signs: Vital Signs Temp 97.6 F 09/18/24 16:00 Pulse 59 L 09/18/24 19:00 Resp 20 09/18/24 19:00 BP 107/64 09/18/24 19:00 Pulse Ox 99 09/18/24 19:00 FiO2 60 09/18/24 19:00 Intake & Output 09/18/24 09/18/24 09/19/24 06:59 18:59 06:59 Intake Total 1045.062 830.814 126 Output Total 735 1170 60 Balance 310.062 -339.186 66 Weight 111.4 kg Intake: IV 340 406 116 0.9% NS KVO 240 130 Ampicillin-Sulbactam 3 gm 100 100 100 In Sodium Chloride 0.9% 100 ml @ 200 mls/hr IVPB Q8H [facility] Rx#:[id number] Impella Flow 143 13 Pressure Bag 33 3 Intake, IV Titration 705.062 364.814 Amount Ampicillin-Sulbactam 3 gm 100 In Sodium Chloride 0.9% 100 ml @ 200 mls/hr IVPB Q8H [facility] Rx#:[id number] Heparin Sod,Pork in 0.45% 5.062 NaCl 25,000 unit In 0.45 % NaCl 1 250ml.bag @ 9.2 UNITS/KG/HR 10.015 mls/hr IV .Q24H [facility] Rx#: [id number] Norepinephrine 4 mg In 250.797 Sodium Chloride 0.9% 250 ml @ 0.03 MCG/KG/MIN 12. 756 mls/hr IV .[id number] [facility] Rx#:[id number] Potassium Chloride 10 meq 200 In Water For Injection 1 100ml.bag @ 100 mls/hr IVPB Q1H [facility] Rx#: [id number] Potassium Chloride 10 meq 400 In Water For Injection 1 100ml.bag @ 100 mls/hr IVPB Q1HR [facility] Rx#: [id number] propofoL 1,000 mg In 114.017 Empty Bag 1 bag @ 15 MCG/ KG/MIN 10.026 mls/hr IV . Q9H59M [facility] Rx#:[id number] Tube Feeding 10 Other 60 Output: Urine 735 1170 60 Other: Voiding Method Indwelling Catheter Indwelling Catheter ABP, PAP, CO, CI - Last Documented Arterial Blood Pressure 115/59 Pulmonary Artery Pressure 264/264 - Exam Patient is currently being intubated. He remains significantly edematous - Labs CBC & Chem 7: 09/18/24 04:45 09/18/24 16:00 Labs: Abnormal Lab Results - Last 24 Hours (Table) 09/17/24 09/18/24 09/18/24 Range/Units 20:05 01:15 01:15 WBC (3.8-10.6) k/uL RBC (4.30-5.90) m/uL Hgb (13.0-17.5) gm/dL Hct (39.0-53.0) % RDW (11.5-15.5) % Neutrophils # (1.3-7.7) k/uL APTT 61.8 H (22.0-30.0) sec Fibrinogen 562 H (200-500) mg/dL ABG pH (7.35-7.45) ABG pCO2 (35-45) mmHg ABG pO2 (83-108) mmHg ABG Total CO2 (19-24) mmol/L ABG O2 Saturation (94-97) % Hemoglobin (13.0-17.5) gm/dL Potassium (3.5-5.1) mmol/L Carbon Dioxide (22-30) mmol/L BUN (9-20) mg/dL Creatinine (0.66-1.25) mg/dL Glucose (74-99) mg/dL POC Glucose (mg/dL) 198 H (70-110) mg/dL Calcium (8.4-10.2) mg/dL Lactate Dehydrogenase 994 H (120-246) U/L 09/18/24 09/18/24 09/18/24 Range/Units 04:45 04:45 06:25 WBC 18.9 H (3.8-10.6) k/uL RBC 3.47 L (4.30-5.90) m/uL Hgb 10.7 L (13.0-17.5) gm/dL Hct 32.5 L (39.0-53.0) % RDW 15.6 H (11.5-15.5) % Neutrophils # 16.5 H (1.3-7.7) k/uL APTT (22.0-30.0) sec Fibrinogen (200-500) mg/dL ABG pH (7.35-7.45) ABG pCO2 (35-45) mmHg ABG pO2 (83-108) mmHg ABG Total CO2 (19-24) mmol/L ABG O2 Saturation (94-97) % Hemoglobin (13.0-17.5) gm/dL Potassium (3.5-5.1) mmol/L Carbon Dioxide 20 L (22-30) mmol/L BUN 28 H (9-20) mg/dL Creatinine 1.35 H (0.66-1.25) mg/dL Glucose 187 H (74-99) mg/dL POC Glucose (mg/dL) 201 H (70-110) mg/dL Calcium 8.0 L (8.4-10.2) mg/dL Lactate Dehydrogenase (120-246) U/L 09/18/24 09/18/24 09/18/24 Range/Units 07:50 07:50 11:53 WBC (3.8-10.6) k/uL RBC (4.30-5.90) m/uL Hgb (13.0-17.5) gm/dL Hct (39.0-53.0) % RDW (11.5-15.5) % Neutrophils # (1.3-7.7) k/uL APTT 66.7 H (22.0-30.0) sec Fibrinogen 555 H (200-500) mg/dL ABG pH (7.35-7.45) ABG pCO2 (35-45) mmHg ABG pO2 (83-108) mmHg ABG Total CO2 (19-24) mmol/L ABG O2 Saturation (94-97) % Hemoglobin (13.0-17.5) gm/dL Potassium (3.5-5.1) mmol/L Carbon Dioxide (22-30) mmol/L BUN (9-20) mg/dL Creatinine (0.66-1.25) mg/dL Glucose (74-99) mg/dL POC Glucose (mg/dL) 189 H (70-110) mg/dL Calcium (8.4-10.2) mg/dL Lactate Dehydrogenase 918 H (120-246) U/L 09/18/24 09/18/24 09/18/24 Range/Units 12:38 16:00 16:00 WBC (3.8-10.6) k/uL RBC (4.30-5.90) m/uL Hgb (13.0-17.5) gm/dL Hct (39.0-53.0) % RDW (11.5-15.5) % Neutrophils # (1.3-7.7) k/uL APTT 69.2 H (22.0-30.0) sec Fibrinogen (200-500) mg/dL ABG pH 7.47 H (7.35-7.45) ABG pCO2 33 L (35-45) mmHg ABG pO2 224 H (83-108) mmHg ABG Total CO2 25 H (19-24) mmol/L ABG O2 Saturation >100.0 H (94-97) % Hemoglobin 10.1 L (13.0-17.5) gm/dL Potassium 3.2 L (3.5-5.1) mmol/L Carbon Dioxide (22-30) mmol/L BUN (9-20) mg/dL Creatinine (0.66-1.25) mg/dL Glucose (74-99) mg/dL POC Glucose (mg/dL) (70-110) mg/dL Calcium (8.4-10.2) mg/dL Lactate Dehydrogenase 802 H (120-246) U/L 09/18/24 Range/Units 16:20 WBC (3.8-10.6) k/uL RBC (4.30-5.90) m/uL Hgb (13.0-17.5) gm/dL Hct (39.0-53.0) % RDW (11.5-15.5) % Neutrophils # (1.3-7.7) k/uL APTT (22.0-30.0) sec Fibrinogen (200-500) mg/dL ABG pH (7.35-7.45) ABG pCO2 (35-45) mmHg ABG pO2 (83-108) mmHg ABG Total CO2 (19-24) mmol/L ABG O2 Saturation (94-97) % Hemoglobin (13.0-17.5) gm/dL Potassium (3.5-5.1) mmol/L Carbon Dioxide (22-30) mmol/L BUN (9-20) mg/dL Creatinine (0.66-1.25) mg/dL Glucose (74-99) mg/dL POC Glucose (mg/dL) 187 H (70-110) mg/dL Calcium (8.4-10.2) mg/dL Lactate Dehydrogenase (120-246) U/L Assessment and Plan Assessment: 1. Acute kidney injury secondary to ATN secondary to hypotension and contrast associated acute kidney injury. Baseline creatinine near 1 and is 1.2 today. Urine output has improved. No hydronephrosis noted on renal ultrasound. Started on hemodialysis September 16, 2024 via femoral catheter due to volume overload and oliguria. 2. Right foot toe infection on antibiotics. 3. NSTEMI status post cardiac catheterization on September 13, 2024 which showed triple-vessel disease. S/p Impella assisted LAD PCI on 09/16/2023 4. Diabetes mellitus. 5. Septic shock, now off Levophed. 6. Metabolic acidosis secondary to acute kidney injury and IV fluids. Expect improvement postdialysis. 7. Volume overload. 8. Cardiomyopathy with ejection fraction of 30 to 35% with moderate mitral regurgitation. Plan: Continue with current dose of Lasix. Hemodialysis today and repeat in a.m. to help with volume overload.
[2024-09-18 19:55] LABS: Glucose,Whole Blood 163 mg/dL (70-110)
--- NOTE | 2024-09-18 21:23 | PCN ---
PROCEDURE NOTE PROCEDURE: Right radial arterial line. PREOPERATIVE DIAGNOSES: Frequent blood draws and blood gas monitoring. POSTOPERATIVE DIAGNOSES: Frequent blood draws and blood gas monitoring. ARTERIAL LINE PLACEMENT: Indications: Hemodynamic monitoring. A time-out was completed verifying correct patient, procedure, site, positioning, and implant(s) or special equipment if applicable. Angelo's test was performed to ensure adequate perfusion. The patient's right wrist or right groin was prepped and draped in sterile fashion. 1% Lidocaine was used to anesthetize the area. An 18G Arrow arterial line was introduced into the right radial artery. The catheter was threaded over the guide wire and the needle was removed with appropriate pulsatile blood return. Blood loss was minimal. The catheter was then sutured in place to the skin and a sterile dressing applied. Perfusion to the extremity distal to the point of catheter insertion was checked and found to be adequate. We used a right radial artery. There was good waveform and blood pressure reading. The catheter was sutured in place. There was no immediate complication. The patient tolerated the procedure well. The dressing was applied by the nurse. MMODL / IJN: [id number] /
--- NOTE | 2024-09-18 21:28 | PCN ---
PROCEDURE NOTE PROCEDURE PERFORMED: Left internal jugular triple-lumen catheter. PREOPERATIVE DIAGNOSIS: Administration of fluids and pressors. POSTOPERATIVE DIAGNOSIS: Administration of fluids and pressors. OPERATORS: Dr. Vernon and Dr. Paige. There was informed consent and universal timeout. We did the left internal jugular vein via the posterior approach. TRIPLE LUMEN CATHETER PLACEMENT: Indication: Hemodynamic monitoring/Intravenous access. A time-out was completed verifying correct patient, procedure, site, positioning, and implant(s) or special equipment if applicable. The patient was placed in a dependent position appropriate for triple lumen catheter placement based on the vein to be cannulated. The patient's left shoulder or left neck or left groin was prepped and draped in sterile fashion. 1% Lidocaine was used to anesthetize the surrounding skin area. A triple lumen 9F Cordis catheter was introduced into the left internal jugular vein using Seldinger technique. The catheter was threaded smoothly over the guide wire and appropriate blood return was obtained. Each lumen of the catheter was evacuated of air and flushed with sterile saline. The catheter was then sutured in place to the skin and a sterile dressing applied. Perfusion to the extremity distal to the point of catheter insertion was checked and found to be adequate. There was no immediate complication. There was good blood return from all 3 ports. The catheter was sutured in place. A sterile dressing was applied by the nurse. The tip of the catheter was seen at the junction of superior vena cava and right atrium. There was no complication. A sterile dressing was applied by the nurse. MMODL / IJN: [id number] /
[2024-09-18] MEDS: INSULIN ASPART (NovoLOG) 100 UNIT/ML VIAL SQ ONE (21:40)
[2024-09-18] MEDS: CHLORHEXIDINE GLUCONATE 15 ML CUP MUCOUS MEM SCH (21:41)
[2024-09-18] MEDS: INSULIN DETEMIR (LEVEMIR) 100 UNIT/ML SYR SQ SCH (21:42)
--- NOTE | 2024-09-18 22:47 | PCN ---
PROCEDURE NOTE PROCEDURES: Bronchoscopy, airway examination, therapeutic lavage, BAL left lung. PREOPERATIVE DIAGNOSIS: Left lung collapse. POSTOPERATIVE DIAGNOSIS: Left lung collapse. OPERATORS: Dr. Vernon and Dr. Paige. DESCRIPTION OF PROCEDURE: There was informed consent and universal timeout. The patient's procedure took place in room #264. After the patient was adequately sedated with propofol and had been paralyzed with Nimbex, the bronchoscope was inserted through the bronchoscope adapter connected to the endotracheal tube. The bronchoscope was taken through the endotracheal tube and down to the trachea. There were thick secretions noted in the distal trachea, and the right side was evaluated 1st. There were scant secretions on the right side, the right upper lobe and its 3 segments, right middle lobe and its 2 segments, and the right lower lobe and its 5 segments, all appeared relatively normal with minimal secretions. The airways were mildly erythematous. On the left side, the left mainstem was obstructed with a big mucus plug. That was suctioned with some difficulty with the aid of saline lavage. After the mucus plug was removed, the rest of the airways were evaluated. There were thick secretions noted throughout including the left upper lobe proper and its 2 segments, the lingula and its 2 segments, the left lower lobe and its 4 segments. After the secretions were removed, the bronchoscope was used to do a formal BAL in the left lung. These were pulled secretions. They were quite turbid, noted in the collection chamber. After about 30 mL was recovered, the bronchoscope was withdrawn. There was no immediate complication. The patient tolerated the procedure well and was stable throughout the procedure. It should be noted that the patient was ventilated with 100% oxygen during the procedure. There was no immediate complications and the patient's FiO2 was returned back to its previous settings. The fluid will be sent for analysis. MMODL / IJN: [id number] /
[2024-09-18] MEDS: POTASSIUM BICARBONATE/CIT AC 20 MEQ TABLET.EFF NG-TUBE SCH (22:54)
[2024-09-18 23:54] LABS: Glucose,Whole Blood 183 mg/dL (70-110)
[2024-09-19] MEDS: INSULIN ASPART (NovoLOG) 100 UNIT/ML VIAL SQ SCH (00:46)
[2024-09-19 05:02] LABS: ABG Base Excess 3.1 mmol/L; ABG HCO3 26 mmol/L (21-25); ABG Oxygen Saturation 99.3 % (94-97); ABG PCO2 31 mmHg (35-45); ABG PH 7.52 (7.35-7.45); ABG PO2 114 mmHg (83-108); ABG TCO2 27 mmol/L (19-24)
[2024-09-19 05:04] LABS: Allen Test Performed? No
[2024-09-19 05:21] LABS: Basophils # (A) 0.1 k/uL (0-0.2); Basophils % (A) 0 %; Eosinophils # (A) 0.3 k/uL (0-0.7); Eosinophils % (A) 2 %; HCT 32.2 % (39.0-53.0); HGB 10.6 gm/dL (13.0-17.5); Hypochromasia Slight; Lymphocytes # (A) 1.6 k/uL (1.0-4.8); Lymphocytes % (A) 8 %; MCH 30.9 pg (25.0-35.0); MCHC 32.9 g/dL (31.0-37.0); MCV 93.7 fL (80.0-100.0); Mean Platelet Volume 10.3; Monocytes # (A) 0.7 k/uL (0-1.0); Monocytes % (A) 4 %; Neutrophils # (A) 16.7 k/uL (1.3-7.7); Neutrophils % (A) 86 %; Platelet Count 199 k/uL (150-450); RBC 3.44 m/uL (4.30-5.90); RDW 15.8 % (11.5-15.5); WBC 19.5 k/uL (3.8-10.6)
[2024-09-19 06:09] LABS: ALT 13 U/L (4-49); AST 22 U/L (17-59); African American GFR (CKD) 67 (>60 ml/min/1.73 sqM); Albumin 2.4 g/dL (3.5-5.0); Alkaline Phosphatase 186 U/L (38-126); Anion Gap 8 mmol/L; Blood Urea Nitrogen 23 mg/dL (9-20); Calcium 8.1 mg/dL (8.4-10.2); Carbon Dioxide 26 mmol/L (22-30); Chloride 104 mmol/L (98-107); Glucose 192 mg/dL (74-99); Non-African American GFR(CKD) 58 (>60 ml/min/1.73 sqM); Potassium 3.7 mmol/L (3.5-5.1); Sodium 138 mmol/L (137-145)
[2024-09-19 06:25] LABS: Glucose,Whole Blood 192 mg/dL (70-110)
[2024-09-19] MEDS: POTASSIUM CHLORIDE 10 MEQ in WATER FOR INJECTION 1 100ML.BAG IVPB SCH (06:43)
[2024-09-19] MEDS ORDERED: HEPARIN SODIUM,PORCINE (1 ML) 2,500 UNIT in SODIUM CHLORIDE 0.9% 250 ML IRRIGATION PRN (07:00)
[2024-09-19] MEDS ORDERED: HEPARIN SODIUM,PORCINE 10,000 UNIT in SODIUM CHLORIDE 0.9% 1,000 ML IRRIGATION PRN (07:00)
[2024-09-19] MEDS: CLOPIDOGREL 75 MG TAB PO SCH (07:44)
--- NOTE | 2024-09-19 08:15 | P.PN ---
Subjective Progress Note Date: 09/18/24 Principal diagnosis: Reason for follow-up right first and second toe diabetic foot infection Patient is a 68-year-old male with a past medical history significant for diabetes mellitus osteoarthritis neuropathy patient did have a left big toe diabetic foot infection requiring left big toe amputation subsequently admitted to the hospital for evaluation of the right big and second toe discoloration mostly on the big toe concerning for diabetic foot infection prompted this consultation. Patient is status post cardiac cath on 09/13/2024 with evidence of significant coronary disease involving the LAD SOULEYMANE and circumflex as well as RCA stenosis no intervention On today's evaluation that is 09/18/2024,the patient is afebrile patient currently intubated prior to proceeding further cardiac cath this morning has been out of the pressor support FiO2 is stable at 60% no significant purulent secretion from the ET unable to change reported by the nursing staff. Patient white count slightly up to 18.9 today creatinine is 1.35 blood culture have been negative Objective - Vital Signs Vital signs: Vital Signs Temp 97.9 F 09/18/24 08:00 Pulse 64 09/18/24 10:15 Resp 22 09/18/24 10:15 BP 103/77 09/18/24 10:15 Pulse Ox 100 09/18/24 10:15 FiO2 100 09/18/24 11:13 Intake & Output 09/17/24 09/18/24 09/18/24 18:59 06:59 18:59 Intake Total 372.543 4661.062 260.930 Output Total 3550 735 325 Balance -2778.485 310.062 -64.070 Weight 111.4 kg Intake: IV 220 340 108 0.9% NS KVO 220 240 60 Ampicillin-Sulbactam 3 gm 100 In Sodium Chloride 0.9% 100 ml @ 200 mls/hr IVPB Q8H [facility] Rx#:[id number] Impella Flow 39 Pressure Bag 9 Intake, IV Titration 151.515 705.062 152.930 Amount Ampicillin-Sulbactam 3 gm 100 In Sodium Chloride 0.9% 100 ml @ 200 mls/hr IVPB Q8H [facility] Rx#:[id number] Heparin Sod,Pork in 0.45% 151.515 5.062 NaCl 25,000 unit In 0.45 % NaCl 1 250ml.bag @ 9.2 UNITS/KG/HR 10.015 mls/hr IV .Q24H [facility] Rx#: [id number] Norepinephrine 4 mg In 152.930 Sodium Chloride 0.9% 250 ml @ 0.03 MCG/KG/MIN 12. 756 mls/hr IV .[id number] [facility] Rx#:[id number] Potassium Chloride 10 meq 200 In Water For Injection 1 100ml.bag @ 100 mls/hr IVPB Q1H [facility] Rx#: [id number] Potassium Chloride 10 meq 400 In Water For Injection 1 100ml.bag @ 100 mls/hr IVPB Q1HR [facility] Rx#: [id number] Hemodialysis 400 Output: Urine 1150 735 325 Hemodialysis 1400 Hemodialysis Net Amount 1000 Other: Voiding Method Indwelling Catheter Indwelling Catheter Indwelling Catheter ABP, PAP, CO, CI - Last Documented Arterial Blood Pressure 110/61 Pulmonary Artery Pressure 264/264 - Exam GENERAL DESCRIPTION: An elderly male lying in bed in no distress RESPIRATORY SYSTEM: Unlabored breathing , decreased breath sounds at bases HEART: S1 S2 regular rate and rhythm , ABDOMEN: Soft , no tenderness EXTREMITIES: Right big toe discoloration swelling no foul-smelling drainage - Labs CBC & Chem 7: 09/19/24 05:00 09/19/24 05:00 Labs: Abnormal Lab Results - Last 24 Hours (Table) 09/15/24 09/17/24 09/17/24 Range/Units 04:45 13:05 13:05 WBC (3.8-10.6) k/uL RBC (4.30-5.90) m/uL Hgb (13.0-17.5) gm/dL Hct (39.0-53.0) % RDW (11.5-15.5) % Neutrophils # (1.3-7.7) k/uL APTT 37.6 H (22.0-30.0) sec Fibrinogen 572 H (200-500) mg/dL Sodium (137-145) mmol/L Potassium (3.5-5.1) mmol/L Carbon Dioxide (22-30) mmol/L BUN (9-20) mg/dL Creatinine (0.66-1.25) mg/dL Glucose (74-99) mg/dL POC Glucose (mg/dL) (70-110) mg/dL Calcium (8.4-10.2) mg/dL Lactate Dehydrogenase 990 H (120-246) U/L Total Creatine Kinase 20 L (30-223) u/L 09/17/24 09/17/24 09/17/24 Range/Units 13:05 14:23 18:23 WBC (3.8-10.6) k/uL RBC (4.30-5.90) m/uL Hgb (13.0-17.5) gm/dL Hct (39.0-53.0) % RDW (11.5-15.5) % Neutrophils # (1.3-7.7) k/uL APTT (22.0-30.0) sec Fibrinogen 559 H (200-500) mg/dL Sodium 136 L (137-145) mmol/L Potassium 3.2 L (3.5-5.1) mmol/L Carbon Dioxide (22-30) mmol/L BUN 25 H (9-20) mg/dL Creatinine (0.66-1.25) mg/dL Glucose 158 H (74-99) mg/dL POC Glucose (mg/dL) 172 H (70-110) mg/dL Calcium 7.9 L (8.4-10.2) mg/dL Lactate Dehydrogenase (120-246) U/L Total Creatine Kinase (30-223) u/L 09/17/24 09/17/24 09/17/24 Range/Units 18:23 18:35 20:05 WBC (3.8-10.6) k/uL RBC (4.30-5.90) m/uL Hgb (13.0-17.5) gm/dL Hct (39.0-53.0) % RDW (11.5-15.5) % Neutrophils # (1.3-7.7) k/uL APTT (22.0-30.0) sec Fibrinogen (200-500) mg/dL Sodium (137-145) mmol/L Potassium (3.5-5.1) mmol/L Carbon Dioxide (22-30) mmol/L BUN (9-20) mg/dL Creatinine (0.66-1.25) mg/dL Glucose (74-99) mg/dL POC Glucose (mg/dL) 176 H 198 H (70-110) mg/dL Calcium (8.4-10.2) mg/dL Lactate Dehydrogenase 1061 H (120-246) U/L Total Creatine Kinase (30-223) u/L 09/18/24 09/18/24 09/18/24 Range/Units 01:15 01:15 04:45 WBC 18.9 H (3.8-10.6) k/uL RBC 3.47 L (4.30-5.90) m/uL Hgb 10.7 L (13.0-17.5) gm/dL Hct 32.5 L (39.0-53.0) % RDW 15.6 H (11.5-15.5) % Neutrophils # 16.5 H (1.3-7.7) k/uL APTT 61.8 H (22.0-30.0) sec Fibrinogen 562 H (200-500) mg/dL Sodium (137-145) mmol/L Potassium (3.5-5.1) mmol/L Carbon Dioxide (22-30) mmol/L BUN (9-20) mg/dL Creatinine (0.66-1.25) mg/dL Glucose (74-99) mg/dL POC Glucose (mg/dL) (70-110) mg/dL Calcium (8.4-10.2) mg/dL Lactate Dehydrogenase 994 H (120-246) U/L Total Creatine Kinase (30-223) u/L 09/18/24 09/18/24 09/18/24 Range/Units 04:45 06:25 07:50 WBC (3.8-10.6) k/uL RBC (4.30-5.90) m/uL Hgb (13.0-17.5) gm/dL Hct (39.0-53.0) % RDW (11.5-15.5) % Neutrophils # (1.3-7.7) k/uL APTT 66.7 H (22.0-30.0) sec Fibrinogen 555 H (200-500) mg/dL Sodium (137-145) mmol/L Potassium (3.5-5.1) mmol/L Carbon Dioxide 20 L (22-30) mmol/L BUN 28 H (9-20) mg/dL Creatinine 1.35 H (0.66-1.25) mg/dL Glucose 187 H (74-99) mg/dL POC Glucose (mg/dL) 201 H (70-110) mg/dL Calcium 8.0 L (8.4-10.2) mg/dL Lactate Dehydrogenase (120-246) U/L Total Creatine Kinase (30-223) u/L 09/18/24 Range/Units 07:50 WBC (3.8-10.6) k/uL RBC (4.30-5.90) m/uL Hgb (13.0-17.5) gm/dL Hct (39.0-53.0) % RDW (11.5-15.5) % Neutrophils # (1.3-7.7) k/uL APTT (22.0-30.0) sec Fibrinogen (200-500) mg/dL Sodium (137-145) mmol/L Potassium (3.5-5.1) mmol/L Carbon Dioxide (22-30) mmol/L BUN (9-20) mg/dL Creatinine (0.66-1.25) mg/dL Glucose (74-99) mg/dL POC Glucose (mg/dL) (70-110) mg/dL Calcium (8.4-10.2) mg/dL Lactate Dehydrogenase 918 H (120-246) U/L Total Creatine Kinase (30-223) u/L Assessment and Plan (1) Diabetic foot infection Current Visit: Yes Status: Acute Code(s): E11.628 - TYPE 2 DIABETES MELLITUS WITH OTHER SKIN COMPLICATIONS; L08.9 - LOCAL INFECTION OF THE SKIN AND SUBCUTANEOUS TISSUE, UNSP SNOMED Code(s): 126238555 (2) Diabetic foot ulcer Current Visit: Yes Status: Acute Code(s): E11.621 - TYPE 2 DIABETES MELLITUS WITH FOOT ULCER; L97.509 - NON-PRESSURE CHRONIC ULCER OTH PRT UNSP FOOT W UNSP SEVERITY SNOMED Code(s): 678000776 Plan: 1patient presented to hospital with discoloration to the right first and second toe in this patient who did have a previous history of left diabetic foot infection osteomyelitis requiring amputation of left big toe culture at that time was positive for MRSA and Finegoldia magna 2patient has been evaluated by vascular surgery and planning for amputation of the right first and second toe, per surgery has been put on hold because of patient developing chest pain did have a cardiac cath with evidence of multivessel disease no intervention was done because of his cardiac decompensation 3patient also noticed to have worsening of his creatinine and has been started on dialysis, 4-patient is afebrile patient white count is slightly up today will monitor closely patient is getting intubated sputum culture have been requested, patient currently being treated with daptomycin along with the Unasyn and monitor cli nical course closely Dictation was produced using [employer] dictation software. please excuse any gramm atical, word or spelling errors. Time with Patient: Less than 30
[2024-09-19 08:27] VITALS: TEMP 98.5
--- NOTE | 2024-09-19 08:40 | XR ---
EXAMINATION TYPE: XR chest 1V portable DATE OF EXAM: 09/19/2024 CLINICAL HISTORY: Difficulty breathing progress study. TECHNIQUE: Single AP portable semiupright view of the chest is obtained. COMPARISON: Chest x-ray from one day earlier and older studies. FINDINGS: Stable endotracheal tube and orogastric tube. Stable left internal jugular central venous catheter. Persistent bilateral left greater than right increased opacities. Catheter overlying the heart from a inferior approach is redemonstrated terminating near the cardiac apex. Osseous structures are intact . IMPRESSION: Persistent small to moderate-size left greater than right pleural effusions and bilatera l lower lung atelectasis and/or acute infiltrates. No significant change from most recent study. [facility], , 09/19/2024 8:37 AM
--- NOTE | 2024-09-19 09:05 | PN ---
PROGRESS NOTE SUBJECTIVE: This is a 68-year-old gentleman who is admitted to ICU with complex and multiple medical problems, has had Impella device placed and is to undergo coronary revascularization today. They tried to dialyze him yesterday. He could not tolerate it. This morning, he is stable hemodynamically. OBJECTIVE: VITAL SIGNS: Heart rate is 60 beats per minute, blood pressure is 105/61, respiratory rate is 20. CHEST: Reveals diminished air entry bilaterally. HEART: Reveals first and second heart sounds. No gallop. EXTREMITIES: Reveals diminished pulses distally. LABORATORY DATA: Show a hemoglobin of 10.6, white cell count is 19.5. Potassium is 3.7, BUN is 23, creatinine is 1.26. The patient is putting out urine while he is receiving IV Lasix and may have coronary intervention today. MMODL / IJN: [id number] /
[2024-09-19 11:04] VITALS: RESP 17
--- NOTE | 2024-09-19 11:06 | P.CONS ---
History of Present Illness - Reason for Consult Consult date: 09/19/24 wound care - History of Present Illness This is a 68-year-old patient being seen in the ICU intubated. Patient was previously seen in the wound care center however he had transferred care he was followed by Dr. Grady. Right great toe gangrene dry. Extending to the proximal will metatarsal. Patient was scheduled for an amputation to the site on the however Amputation did not occur. Patient currently has a dry gauze dressing in place. Review of system: Unable to obtain due to intubation Physical exam: General Appearance: Alert, cooperative, no distress, appears stated age. Skin: See HPI all other Skin color, texture, tugor normal, no rashes or lesions. Neurologic: Alert oriented x3 Assessment: 1. 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 Gangrene right great toe - I96 3. Diabetic foot ulcer - E11.621 Plan: 1. May apply dry dressing to the site as needed. Thank you for the consultation any questions please contact the wound care center DNP note has been reviewed and discussed with Dr. Cain and the impression and plan of care has been directed as dictated. 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, NEEDLE ASPIRATION LEFT EYE Q 3 MONTHS, [facility] Past Anesthesia/Blood Transfusion Reactions: No Reported Reaction Past Psychological History: Anxiety Smoking Status: Current every day smoker Past Alcohol Use History: None Reported Past Drug Use History: None Reported - Past Family History Mother Family Medical History: Cancer Additional Family Medical History / Comment(s): BREAST Sister(s) Family Medical History: Cancer Medications and Allergies Home Medications Medication Instructions Recorded Confirmed Type Albuterol Inhaler [Ventolin Hfa 3 puff INHALATION RT-QID PRN 05/21/24 09/10/24 History Inhaler] Tamsulosin [Flomax] 0.4 mg PO HS 06/13/24 09/10/24 History Furosemide [Lasix] 20 mg PO DAILY #14 tab 06/18/24 09/10/24 Rx Spironolactone [Aldactone] 25 mg PO DAILY #7 tablet 06/19/24 09/10/24 Rx Acetaminophen 500 - 1,000 mg PO Q8H PRN 09/10/24 09/10/24 History Haloperidol Oral Soln [Haldol Oral 2 - 4 mg PO Q4H PRN 09/10/24 09/10/24 History Soln] Insulin Glargine (Lantus) [Lantus 20 unit SQ HS 09/10/24 09/10/24 History Vial] LORazepam [Ativan] 0.5 - 1 mg PO Q12H PRN 09/10/24 09/10/24 History Nystatin 100,000 Unit/gm Powd 1 applic TOPICAL TID 09/10/24 09/10/24 History [Mycostatin Powder] Prochlorperazine Suppository 25 mg RECTAL Q8H PRN 09/10/24 09/10/24 History [Compazine] Sennosides/Docusate Sodium [Senna 1 tab PO BID PRN 09/10/24 09/10/24 History Plus 8.6-50 mg Tablet] Allergies Allergy/AdvReac Type Severity Reaction Status Date / Time No Known Allergies Allergy Verified 09/10/24 11:29 Physical Exam Vitals: Vital Signs Temp Pulse Pulse Resp BP BP Pulse Ox 09/19/24 10:30 16 112/63 100 09/19/24 10:15 65 16 104/62 100 09/19/24 10:00 62 16 103/63 99 09/19/24 09:45 62 16 100/62 99 09/19/24 09:30 63 16 105/63 99 09/19/24 09:18 09/19/24 09:15 62 20 98/65 100 09/19/24 09:00 65 20 96/60 100 09/19/24 08:45 66 20 104/61 100 09/19/24 08:40 09/19/24 08:30 66 20 107/66 100 09/19/24 08:15 75 20 100/61 100 09/19/24 08:00 98.5 F 67 20 145/77 99 09/19/24 07:45 75 20 104/61 100 09/19/24 07:30 66 20 111/73 100 09/19/24 07:15 67 20 108/63 100 09/19/24 07:00 97.1 F L 66 20 105/61 100 09/19/24 06:45 67 110/65 100 09/19/24 06:30 68 108/60 100 09/19/24 06:15 66 110/65 100 09/19/24 06:00 98.0 F 67 21 106/65 100 09/19/24 05:45 67 105/70 100 09/19/24 05:30 66 108/66 100 09/19/24 05:15 68 107/68 100 09/19/24 05:00 97.4 F L 67 22 117/66 100 09/19/24 04:45 68 115/68 100 09/19/24 04:32 09/19/24 04:30 70 112/63 100 09/19/24 04:15 70 107/77 100 09/19/24 04:00 71 22 111/63 100 09/19/24 03:45 70 115/61 100 09/19/24 03:41 67 20 09/19/24 03:30 68 115/67 100 09/19/24 03:15 67 108/65 100 09/19/24 03:00 97.1 F L 66 22 119/69 100 09/19/24 02:45 122/66 100 09/19/24 02:30 69 57 H 123/68 99 09/19/24 02:15 130/72 100 09/19/24 02:00 97.5 F L 72 22 102/63 100 09/19/24 01:45 64 107/59 91 L 09/19/24 01:30 59 L 109/62 93 L 09/19/24 01:15 61 110/62 98 09/19/24 01:00 97.5 F L 62 20 116/68 96 09/19/24 00:45 111/66 99 09/19/24 00:30 111/63 99 09/19/24 00:15 97.8 F 64 20 113/71 99 09/19/24 00:12 09/19/24 00:00 60 62 20 115/69 99 09/18/24 23:45 110/67 99 09/18/24 23:30 60 113/66 99 09/18/24 23:15 60 103/65 99 09/18/24 23:01 62 99 09/18/24 23:00 97.6 F 61 20 103/62 99 09/18/24 22:45 60 104/61 99 09/18/24 22:30 58 L 109/66 99 09/18/24 22:15 57 L 108/67 99 09/18/24 22:00 58 L 114/67 99 09/18/24 21:45 60 20 107/64 99 09/18/24 21:30 57 L 20 109/66 99 09/18/24 21:15 59 L 20 107/64 99 09/18/24 21:00 97.5 F L 59 L 20 107/64 99 09/18/24 20:45 59 L 20 106/65 99 09/18/24 20:30 59 L 20 107/65 100 09/18/24 20:16 09/18/24 20:15 60 20 110/64 99 09/18/24 20:00 97.5 F L 60 58 L 20 108/66 99 09/18/24 19:45 61 107/64 99 09/18/24 19:30 59 L 111/64 99 09/18/24 19:15 62 107/64 99 09/18/24 19:00 60 59 L 20 109/67 107/64 99 09/18/24 18:45 59 L 20 109/67 99 09/18/24 18:30 60 20 108/71 100 09/18/24 18:15 58 L 20 111/68 100 09/18/24 18:00 60 20 111/69 99 09/18/24 17:45 61 20 99 09/18/24 17:30 74 20 130/74 99 09/18/24 17:15 62 20 88/60 99 09/18/24 17:00 61 20 110/68 99 09/18/24 16:45 58 L 20 115/74 99 09/18/24 16:30 60 20 99/67 98 09/18/24 16:15 58 L 20 101/67 98 09/18/24 16:00 97.6 F 62 20 103/68 98 09/18/24 15:45 54 L 20 107/71 96 09/18/24 15:31 09/18/24 15:30 60 20 105/67 96 09/18/24 15:15 56 L 20 102/73 96 09/18/24 15:00 57 L 20 105/80 96 09/18/24 14:45 23 107/68 94 L 09/18/24 14:30 59 L 20 94/64 96 09/18/24 14:15 61 20 111/66 95 09/18/24 14:00 58 L 20 107/74 98 09/18/24 13:45 58 L 20 105/72 98 09/18/24 13:30 55 L 20 115/77 99 09/18/24 13:15 66 20 86/64 99 09/18/24 13:00 55 L 20 102/70 100 09/18/24 12:45 66 20 110/72 100 09/18/24 12:30 65 20 103/69 100 09/18/24 12:15 58 L 20 102/70 100 09/18/24 12:00 59 L 20 126/99 100 09/18/24 11:45 68 20 108/70 99 09/18/24 11:30 73 28 H 116/74 98 09/18/24 11:15 69 99/69 99 09/18/24 11:13 09/18/24 11:00 71 69 22 121/81 99/69 96 FiO2 09/19/24 10:30 09/19/24 10:15 09/19/24 10:00 09/19/24 09:45 09/19/24 09:30 50 09/19/24 09:18 50 09/19/24 09:15 09/19/24 09:00 09/19/24 08:45 09/19/24 08:40 60 09/19/24 08:30 09/19/24 08:15 09/19/24 08:00 60 09/19/24 07:45 09/19/24 07:30 09/19/24 07:15 09/19/24 07:00 09/19/24 06:45 09/19/24 06:30 09/19/24 06:15 09/19/24 06:00 09/19/24 05:45 09/19/24 05:30 09/19/24 05:15 09/19/24 05:00 09/19/24 04:45 09/19/24 04:32 60 09/19/24 04:30 09/19/24 04:15 09/19/24 04:00 09/19/24 03:45 09/19/24 03:41 60 09/19/24 03:30 09/19/24 03:15 09/19/24 03:00 09/19/24 02:45 09/19/24 02:30 09/19/24 02:15 09/19/24 02:00 09/19/24 01:45 09/19/24 01:30 09/19/24 01:15 09/19/24 01:00 09/19/24 00:45 09/19/24 00:30 09/19/24 00:15 09/19/24 00:12 60 09/19/24 00:00 60 09/18/24 23:45 09/18/24 23:30 09/18/24 23:15 09/18/24 23:01 09/18/24 23:00 09/18/24 22:45 09/18/24 22:30 09/18/24 22:15 09/18/24 22:00 09/18/24 21:45 60 09/18/24 21:30 60 09/18/24 21:15 60 09/18/24 21:00 60 09/18/24 20:45 60 09/18/24 20:30 60 09/18/24 20:16 60 09/18/24 20:15 09/18/24 20:00 60 09/18/24 19:45 09/18/24 19:30 09/18/24 19:15 09/18/24 19:00 60 09/18/24 18:45 09/18/24 18:30 09/18/24 18:15 09/18/24 18:00 09/18/24 17:45 09/18/24 17:30 09/18/24 17:15 09/18/24 17:00 09/18/24 16:45 09/18/24 16:30 09/18/24 16:15 09/18/24 16:00 60 09/18/24 15:45 09/18/24 15:31 60 09/18/24 15:30 09/18/24 15:15 09/18/24 15:00 09/18/24 14:45 09/18/24 14:30 09/18/24 14:15 09/18/24 14:00 09/18/24 13:45 09/18/24 13:30 09/18/24 13:15 09/18/24 13:00 60 09/18/24 12:45 09/18/24 12:30 70 09/18/24 12:15 09/18/24 12:00 09/18/24 11:45 100 09/18/24 11:30 100 09/18/24 11:15 09/18/24 11:13 100 09/18/24 11:00 70 Intake and Output 09/18/24 09/19/24 09/19/24 22:59 06:59 14:59 Intake Total 276.987 6668.282 526.418 Output Total 1070 1680 770 Balance -173.116 -338.718 -243.582 Intake: IV 407 232 216 0.9% NS KVO 70 80 40 Ampicillin-Sulbactam 3 gm 100 In Sodium Chloride 0.9% 100 ml @ 200 mls/hr IVPB Q8H [facility] Rx#:[id number] DAPTOmycin 500 mg In 100 Sodium Chloride 0.9% 50 ml @ 100 mls/hr IVPB Q24HR@2100 [facility] Rx#: [id number] Impella Flow 104 104 52 Potassium Chloride 10 meq 100 In Water For Injection 1 100ml.bag @ 100 mls/hr IVPB Q1H [facility] Rx#: [id number] Pressure Bag 33 48 24 Intake, IV Titration 419.884 999.282 250.418 Amount Ampicillin-Sulbactam 3 gm 200 In Sodium Chloride 0.9% 100 ml @ 200 mls/hr IVPB Q6H [facility] Rx#:[id number] Heparin Sod,Pork in 0.45% 244.938 96.478 NaCl 25,000 unit In 0.45 % NaCl 1 250ml.bag @ 9.2 UNITS/KG/HR 10.015 mls/hr IV .Q24H [facility] Rx#: [id number] Norepinephrine 4 mg In 68.670 215.435 63.213 Sodium Chloride 0.9% 250 ml @ 0.03 MCG/KG/MIN 12. 756 mls/hr IV .[id number] [facility] Rx#:[id number] Sodium Chloride 0.9% 1, 324 108 000 ml In Empty Bag 1 bag @ 1 ML/KG/HR 108.4 mls/ hr IV .Q9H14M [facility] Rx#: [id number] propofoL 1,000 mg In 106.276 163.369 79.205 Empty Bag 1 bag @ 15 MCG/ KG/MIN 10.026 mls/hr IV . Q9H59M [facility] Rx#:[id number] Oral 0 Tube Feeding 40 20 Other 30 90 60 Output: Urine 1070 1680 770 Other: Voiding Method Indwelling Catheter Indwelling Catheter Indwelling Catheter Weight 109.4 kg ABP, PAP, CO, CI - Last 8 Hours Arterial Blood Pressure 112/62 Arterial Blood Pressure 124/59 Arterial Blood Pressure 108/56 Arterial Blood Pressure 109/56 Arterial Blood Pressure 106/55 Arterial Blood Pressure 111/57 Arterial Blood Pressure 108/54 Arterial Blood Pressure 106/53 Arterial Blood Pressure 115/57 Arterial Blood Pressure 128/64 Arterial Blood Pressure 112/53 Arterial Blood Pressure 141/69 Arterial Blood Pressure 114/57 Arterial Blood Pressure 120/58 Arterial Blood Pressure 118/56 Arterial Blood Pressure 104/56 Arterial Blood Pressure 122/58 Arterial Blood Pressure 121/58 Arterial Blood Pressure 123/58 Arterial Blood Pressure 114/57 Arterial Blood Pressure 112/57 Arterial Blood Pressure 119/59 Arterial Blood Pressure 122/59 Arterial Blood Pressure 130/61 Arterial Blood Pressure 129/61 Arterial Blood Pressure 116/57 Arterial Blood Pressure 101/58 Arterial Blood Pressure 109/64 Arterial Blood Pressure 110/63 Arterial Blood Pressure 129/65 Arterial Blood Pressure 136/65 Results CBC & Chem 7: 09/19/24 05:00 09/19/24 05:00 Labs: Abnormal Lab Results - Last 24 Hours (Table) 09/18/24 09/18/24 09/18/24 Range/Units 11:53 12:38 16:00 WBC (3.8-10.6) k/uL RBC (4.30-5.90) m/uL Hgb (13.0-17.5) gm/dL Hct (39.0-53.0) % RDW (11.5-15.5) % Neutrophils # (1.3-7.7) k/uL APTT 69.2 H (22.0-30.0) sec Fibrinogen (200-500) mg/dL ABG pH 7.47 H (7.35-7.45) ABG pCO2 33 L (35-45) mmHg ABG pO2 224 H (83-108) mmHg ABG HCO3 (21-25) mmol/L ABG Total CO2 25 H (19-24) mmol/L ABG O2 Saturation >100.0 H (94-97) % Hemoglobin 10.1 L (13.0-17.5) gm/dL Potassium (3.5-5.1) mmol/L BUN (9-20) mg/dL Creatinine (0.66-1.25) mg/dL Glucose (74-99) mg/dL POC Glucose (mg/dL) 189 H (70-110) mg/dL Calcium (8.4-10.2) mg/dL Alkaline Phosphatase (38-126) U/L Lactate Dehydrogenase (120-246) U/L Total Protein (6.3-8.2) g/dL Albumin (3.5-5.0) g/dL 09/18/24 09/18/24 09/18/24 Range/Units 16:00 16:20 19:54 WBC (3.8-10.6) k/uL RBC (4.30-5.90) m/uL Hgb (13.0-17.5) gm/dL Hct (39.0-53.0) % RDW (11.5-15.5) % Neutrophils # (1.3-7.7) k/uL APTT (22.0-30.0) sec Fibrinogen (200-500) mg/dL ABG pH (7.35-7.45) ABG pCO2 (35-45) mmHg ABG pO2 (83-108) mmHg ABG HCO3 (21-25) mmol/L ABG Total CO2 (19-24) mmol/L ABG O2 Saturation (94-97) % Hemoglobin (13.0-17.5) gm/dL Potassium 3.2 L (3.5-5.1) mmol/L BUN (9-20) mg/dL Creatinine (0.66-1.25) mg/dL Glucose (74-99) mg/dL POC Glucose (mg/dL) 187 H 163 H (70-110) mg/dL Calcium (8.4-10.2) mg/dL Alkaline Phosphatase (38-126) U/L Lactate Dehydrogenase 802 H (120-246) U/L Total Protein (6.3-8.2) g/dL Albumin (3.5-5.0) g/dL 09/18/24 09/18/24 09/18/24 Range/Units 19:55 23:50 23:50 WBC (3.8-10.6) k/uL RBC (4.30-5.90) m/uL Hgb (13.0-17.5) gm/dL Hct (39.0-53.0) % RDW (11.5-15.5) % Neutrophils # (1.3-7.7) k/uL APTT (22.0-30.0) sec Fibrinogen 557 H (200-500) mg/dL ABG pH (7.35-7.45) ABG pCO2 (35-45) mmHg ABG pO2 (83-108) mmHg ABG HCO3 (21-25) mmol/L ABG Total CO2 (19-24) mmol/L ABG O2 Saturation (94-97) % Hemoglobin (13.0-17.5) gm/dL Potassium 3.3 L (3.5-5.1) mmol/L BUN (9-20) mg/dL Creatinine (0.66-1.25) mg/dL Glucose (74-99) mg/dL POC Glucose (mg/dL) (70-110) mg/dL Calcium (8.4-10.2) mg/dL Alkaline Phosphatase (38-126) U/L Lactate Dehydrogenase 829 H (120-246) U/L Total Protein (6.3-8.2) g/dL Albumin (3.5-5.0) g/dL 09/18/24 09/18/24 09/19/24 Range/Units 23:50 23:52 04:58 WBC (3.8-10.6) k/uL RBC (4.30-5.90) m/uL Hgb (13.0-17.5) gm/dL Hct (39.0-53.0) % RDW (11.5-15.5) % Neutrophils # (1.3-7.7) k/uL APTT 67.6 H (22.0-30.0) sec Fibrinogen (200-500) mg/dL ABG pH 7.52 H (7.35-7.45) ABG pCO2 31 L (35-45) mmHg ABG pO2 114 H (83-108) mmHg ABG HCO3 26 H (21-25) mmol/L ABG Total CO2 27 H (19-24) mmol/L ABG O2 Saturation 99.3 H (94-97) % Hemoglobin 10.9 L (13.0-17.5) gm/dL Potassium (3.5-5.1) mmol/L BUN (9-20) mg/dL Creatinine (0.66-1.25) mg/dL Glucose (74-99) mg/dL POC Glucose (mg/dL) 183 H (70-110) mg/dL Calcium (8.4-10.2) mg/dL Alkaline Phosphatase (38-126) U/L Lactate Dehydrogenase (120-246) U/L Total Protein (6.3-8.2) g/dL Albumin (3.5-5.0) g/dL 09/19/24 09/19/24 09/19/24 Range/Units 05:00 05:00 05:00 WBC 19.5 H (3.8-10.6) k/uL RBC 3.44 L (4.30-5.90) m/uL Hgb 10.6 L (13.0-17.5) gm/dL Hct 32.2 L (39.0-53.0) % RDW 15.8 H (11.5-15.5) % Neutrophils # 16.7 H (1.3-7.7) k/uL APTT 75.6 H (22.0-30.0) sec Fibrinogen (200-500) mg/dL ABG pH (7.35-7.45) ABG pCO2 (35-45) mmHg ABG pO2 (83-108) mmHg ABG HCO3 (21-25) mmol/L ABG Total CO2 (19-24) mmol/L ABG O2 Saturation (94-97) % Hemoglobin (13.0-17.5) gm/dL Potassium (3.5-5.1) mmol/L BUN 23 H (9-20) mg/dL Creatinine 1.26 H (0.66-1.25) mg/dL Glucose 192 H (74-99) mg/dL POC Glucose (mg/dL) (70-110) mg/dL Calcium 8.1 L (8.4-10.2) mg/dL Alkaline Phosphatase 186 H (38-126) U/L Lactate Dehydrogenase (120-246) U/L Total Protein 5.0 L (6.3-8.2) g/dL Albumin 2.4 L (3.5-5.0) g/dL 09/19/24 09/19/24 09/19/24 Range/Units 06:24 07:55 07:55 WBC (3.8-10.6) k/uL RBC (4.30-5.90) m/uL Hgb (13.0-17.5) gm/dL Hct (39.0-53.0) % RDW (11.5-15.5) % Neutrophils # (1.3-7.7) k/uL APTT (22.0-30.0) sec Fibrinogen 547 H (200-500) mg/dL ABG pH (7.35-7.45) ABG pCO2 (35-45) mmHg ABG pO2 (83-108) mmHg ABG HCO3 (21-25) mmol/L ABG Total CO2 (19-24) mmol/L ABG O2 Saturation (94-97) % Hemoglobin (13.0-17.5) gm/dL Potassium (3.5-5.1) mmol/L BUN (9-20) mg/dL Creatinine (0.66-1.25) mg/dL Glucose (74-99) mg/dL POC Glucose (mg/dL) 192 H (70-110) mg/dL Calcium (8.4-10.2) mg/dL Alkaline Phosphatase (38-126) U/L Lactate Dehydrogenase 822 H (120-246) U/L Total Protein (6.3-8.2) g/dL Albumin (3.5-5.0) g/dL Microbiology - Last 24 Hours (Table) 09/18/24 12:07 Gram Stain - Preliminary Sputum
--- NOTE | 2024-09-19 11:06 | P.PN ---
Subjective Progress Note Date: 09/19/24 Sepsis. This is a 68-year-old white male, known history of type 2 diabetes, peripheral vessel occlusive disease secondary to diabetes, patient was admitted on 09/10/2014, presented to the ER with right toe infection. The right big toe has been getting increasingly painful, swollen, red and tender. 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 Seen in the ER, foot x-ray showed moderate to severe soft tissue swelling, patient was admitted with diabetic foot infection. Seen by infectious disease, placed on antibiotics, patient was also seen by vascular surgery and cardiology for elevated troponin. Patient underwent cardiac catheterization today, he was found to have 90% proximal mid LAD stenosis 80% diagonal 190% OM1 100% mid circumflex and 99% mid RCA. Patient was also noted to have slightly elevated left-sided filling pressures, patient was noted to be hypotensive in the [facility], placed on no repinephrine, admitted to the ICU because of hypotension and this consult was initiated. During my evaluation, patient had no shortness of breath, no cough, no wheezing, he had some vague chest discomfort. Patient is being considered for possible Impella protected PCI of LAD and RCA down the line, concerned about his renal status and contrast media. Labs on this patient today showed leukocytosis with WBC count of 14.2 hemoglobin is 11 electrolytes are normal BUN is 26 creatinine 1.23. Patient has been seen by infectious disease on the case, presently on Unasyn 3 g every 6 hours. Preliminary report on blood cultures since admission has been negative. Pulmonary trejo, patient has been a smoker over the years, he had at least a [id number] smoking history since age 13. Has not been on any inhalers and has not been diagnosed with COPD. Patient was seen today on 09/14/2023, remains in the ICU, patient has been seen by many consultants including cardiology, infectious disease, nephrology, patient is developing worsening renal failure picture, seen by nephrology, recommended Lasix, and bicarb. Patient is on Unasyn for his big toe infection. Patient has leukocytosis with WBC of 16.9 hemoglobin 10.9 bicarb is 17 BUN is 30 creatinine is up to 1.62. Patient is off norepinephrine, not requiring any pressors, he had norepinephrine last night shortly after he came back from the cardiac catheterization and he is now hemodynamically stable off norepinephrine. Pulmonary trejo no cough no wheezing no shortness of breath his acute kidney injury felt to be related to hypotension and contrast media his initial presentation was a presentation of non-ST elevation myocardial infarction and he was found to have significant triple-vessel coronary artery disease. Chest x- ray did not show evidence of fluid overload patient did receive Lasix and he remains on Lasix as recommended by nephrology. Patient was seen today on 09/15/2023, patient remains in the ICU, confused, pulling his IV lines, remains on Unasyn and daptomycin, remains on Lasix, patient developed worsening renal failure, that is being addressed by nephrology. No chest x-ray was done today, however he is scheduled to have a chest x-ray in a.m., presently on room air, does not seem to be in any distress, but is intermittently confused, requiring a sitter to keep a close watch on the patient. WBC count is 13.2 hemoglobin 11.5, electrolytes are normal BUN is 37, creatinine is up to 1.97. Patient is being followed by many consultants including cardiology, infectious disease, and nephrology. Progress note dated September 16, 2024. This the patient was admitted on September 10. He came in initially with diabetic foot infection. He had a heart catheterization on September 12, which revealed significant coronary artery disease. He came to the ICU on the , because of hypotension. The patient is seen today in room 264. He is getting hemodialysis. He is on 4-1/2 L of oxygen. He is getting heparin via weight- based protocol, and saline at 50 cc an hour. The plan for him is an Impella protected PCI, by Dr. Frias, sometime this week possibly. Currently, white count 9.3, hemoglobin 10.9, hematocrit 34.4, platelet count 193,000. PTT is 55.2. Sodium 140, potassium 3.9, chlorides 108, CO2 14 anion gap 18, BUN 38, creatinine 2.12. Calcium is 8. Glucose is 174. Chest x-ray is consistent with pulmonary edema. Progress note dated September 17, 2024. The patient is seen today in room 264. The patient was taken to the catheterization laboratory yesterday, for an Impella protected catheterization, and possible stent. Apparently no stent was placed. The patient is currently on BiPAP, with settings of 12/5, and 40%. The patient is having hemodialysis today, with removal of 1 L of fluid. The patient's blood gases yesterday showed a pO2 of 97, pCO2 of 32, pH is 7.39. He is on IV heparin via weight-based protocol. He is getting saline at 20 cc an hour. Apparently he will go back to the catheterization laboratory tomorrow. White count 10.9, hemoglobin 10.7, hematocrit 33.6, with a normal platelet count. Sodium 138, potassium 4.2, chlorides 106, CO2 21, BUN 35, creatinine 1.63. Glucose is 210. Calcium is 7.8. Chest x-ray shows complete opacification of the left hemithorax. Progress note dated September 18, 2024. The patient is seen today in room 264. The patient remains on BiPAP of 14/9, and 70%. The patient is getting saline at 20 cc an hour, and IV heparin. Current labs include a white count 18.9, hemoglobin 10.7, hematocrit 32.5, and a platelet count of 229,000. Sodium 138, potassium 4.2, chlorides 104, CO2 20, BUN 28, and creatinine 1.35. Glucose was 201. Lactic acid 1.2. Calcium 8.0. Chest x-ray shows a completely opacified left sided hemithorax with volume loss. Progress note 09/19/2024 Patient seen and examined at bedside. Patient is still in the ICU sedated, intubated and mechanically ventilated. Still on Impella. Yesterday, patient underwent bronchoscopy and was found to have large mucous plugs the left main bronchus. Patient also underwent hemodialysis yesterday went very hypotensive despite pressor support and thus dialysis had to be terminated. Today current ventilator settings are assist-control with a rate of 20, tidal volume 450, FiO2 60% with a PEEP of 5. Patient is currently on heparin drip, Levophed at 0.04 mics per kilogram per minute and propofol at 30 mcg/kg/min. Patient is also on daptomycin IV day 5, and Unasyn IVPB day 1, Lasix 80 mg every 12, aspirin 81 p.o., Lipitor 40 mg p.o., and Plavix 75 mg p.o. Enteral feeding has been held for now. ABG today shows PaO2 114, pCO2 31 with a pH of 7.25. Labs today show WBC 19.5, hemoglobin 10.6, platelet count 1 99,000, PTT 75.6, sodium 138, potassium 3.7, bicarb 26, chloride 104, BUN 23, creatinine 1.26, glucose 192, calcium 8.1, AST 22, ALT 13, alk phos 196, albumin 2.4, lactate dehydrogenase 822. Chest x-ray today showed persistent small to moderate size left greater than right pleural effusions and bilateral lower lung atelectasis and/or acute infiltrates with no significant changes from recent study. Review of systems: Cannot assess Pertinent imaging and labs reviewed. Physical examination: Vital signs reviewed General: somnolent, no distress, intubated and mechanically ventilated Derm: no unusual rashes/lesions, warm Head: atraumatic, normocephalic, symmetric Eyes: EOMI, anicteric sclera, pupils equal round reactive to light ENT: Nose and ears atraumatic Neck: No cervical lymphadenopathy, trachea midline, supple Mouth: no lip lesion, mucus membranes moist Cardiovascular: S1S2 reg, soft systolic murmur Lungs: Basilar expiratory wheezes on the left lung, scattered inspiratory and expiratory stridor at the right lung, no accessory muscle use Abdominal: soft, nontender to palpation, no guarding Ext: muscle strength 5 out of 5 in all 4 extremities grossly, no gross muscle atrophy, no contractures, positive dorsalis pedis pulse bilateral, +2 bipedal edema up to the thighs, gangrenous changes on right big toe, left big toe amputated Neuro: Cannot assess Psych: Cannot assess Assessment: -Active: Gangrenous right big toe. Acute non-ST segment elevation myocardial infarction. S/P Impella protected cardiac catheterization, 09/16/2024. Elective intubation/mechanical ventilation, 09/18/2024. Left lung collapse with mucus plug s/p bronchoscopy with lavage 09/18/2024 Coronary artery disease 90% proximal mid LAD stenosis, diagonal one 80%, OM1 90%, mid circumflex 100%, 99% mid RCA stenosis Acute kidney injury/ATN, secondary to hypotension, and contrast. Severe ischemic cardiomyopathy. Hypotension, likely secondary to cardiomyopathy, and sepsis. Metabolic encephalopathy. -Chronic: Tobacco dependence syndrome. Probable COPD. Peripheral vascular occlusive disease. Hyperlipidemia. Plan: Plan dated September 16, 2024. The patient is seen today in room 264. Currently, he is on oxygen at 4.5 L by nasal cannula. He is getting IV heparin via weight-based protocol, and saline at 50 cc an hour. The patient was admitted on 10 September, and, came to the intensive care unit on the , where he had a heart catheterization, showing coronary disease, and hypotension. Labs, x-rays, and all medications are reviewed. I did speak to cardiology, and they wanted to proceed with a Impella protected PCI. The patient may end up on mechanical ventilation, although BiPAP could be tried prior. Currently, the patient is on appropriate medications, including, Unasyn, and daptomycin. Infectious diseases is following, as is nephrology. Plan dated September 17, 2024. The patient went for heart catheterization yesterday. An Impella device was placed. He continues on the Impella today. He is currently on BiPAP, with settings of 12/5, and 40%. The patient will have hemodialysis today, with 1 L being removed. The patient apparently will be going back to the catheterization laboratory September 18, according to the nurse. The patient continues on IV heparin. Blood gases yesterday showed a pO2 of 97, pCO2 32, pH is 7.39. All labs, x-rays, medications are reviewed. The patient continues on antibiotics. We will continue to follow make recommendations. Prognosis is guarded. Plan dated September 18, 2024. The patient remains on the Impella device. The patient will be electively intubated, by anesthesia, and placed on mechanical ventilator, with propofol for sedation. The plan is for the patient to go back to the catheterization laboratory later today. I spoke to the golf professional, Dr. Frias. Labs, x- rays, and all medications are reviewed. The patient is overall prognosis remains very guarded. The patient continues on IV heparin, and saline at 20 cc an hour. In addition, he continues on Unasyn. He has diffuse anasarca, and gangrenous changes on his right great toe. Overall prognosis is mentioned, is poor. Nonetheless, apparently the son does not want to make the patient a comfort care patient or DNR patient. Plan dated 09/19/2024 labs, xrays and medications reviewed. Continue mechanical ventilation. Settings adjusted today: FiO2 decreased to 50%, respiratory rate decreased to 16 Patient remains on Impella device. Will return to [facility] today for stent placement. Hold enteral feeding for now. Will resume after patient returns from [facility]. Continue Levophed for hemodynamic support Continue sedation with propofol Continue heparin drip Continue daptomycin 500 mg IVPB daily and Unasyn 3 g IVPB every 6 hours for empiric bacterial coverage Continue aspirin 81 mg po, Lipitor 40 mg p.o., and Plavix 75 mg p.o. Continue Lasix 80 mg IV every 12 hours Continue hemodialysis GI prophylaxis: Protonix 40 mg IV daily DVT prophylaxis: Heparin drip The patient is overall prognosis remains very guarded. Will continue to follow. Norma Jorgensen MD PGY-1/Search Marketing Specialist Dictation was produced using mojio dictation software. please excuse any grammatical, word or spelling errors. Objective - Vital Signs Vital signs: Vital Signs Temp 97.1 F L 09/19/24 07:00 Pulse 66 09/19/24 07:00 Resp 20 09/19/24 07:00 BP 105/61 09/19/24 07:00 Pulse Ox 100 09/19/24 07:00 FiO2 60 09/19/24 04:32 Intake & Output 09/18/24 09/19/24 09/19/24 18:59 06:59 18:59 Intake Total 591.583 2395.011 137 Output Total 1170 2340 185 Balance -339.186 -332.989 -48 Weight 109.4 kg Intake: IV 406 535 29 0.9% NS KVO 130 110 10 Ampicillin-Sulbactam 3 gm 100 100 In Sodium Chloride 0.9% 100 ml @ 200 mls/hr IVPB Q8H [facility] Rx#:[id number] DAPTOmycin 500 mg In 100 Sodium Chloride 0.9% 50 ml @ 100 mls/hr IVPB Q24HR@2100 [facility] Rx#: [id number] Impella Flow 143 156 13 Pressure Bag 33 69 6 Intake, IV Titration 208.363 2128.011 108 Amount Ampicillin-Sulbactam 3 gm 200 In Sodium Chloride 0.9% 100 ml @ 200 mls/hr IVPB Q6H [facility] Rx#:[id number] Heparin Sod,Pork in 0.45% 341.416 NaCl 25,000 unit In 0.45 % NaCl 1 250ml.bag @ 9.2 UNITS/KG/HR 10.015 mls/hr IV .Q24H [facility] Rx#: [id number] Norepinephrine 4 mg In 250.797 215.435 Sodium Chloride 0.9% 250 ml @ 0.03 MCG/KG/MIN 12. 756 mls/hr IV .[id number] [facility] Rx#:[id number] Sodium Chloride 0.9% 1, 324 108 000 ml In Empty Bag 1 bag @ 1 ML/KG/HR 108.4 mls/ hr IV .Q9H14M [facility] Rx#: [id number] propofoL 1,000 mg In 114.017 211.160 Empty Bag 1 bag @ 15 MCG/ KG/MIN 10.026 mls/hr IV . Q9H59M [facility] Rx#:[id number] Oral 0 Tube Feeding 60 Other 60 120 Output: Urine 1170 2340 185 Other: Voiding Method Indwelling Catheter Indwelling Catheter ABP, PAP, CO, CI - Last Documented Arterial Blood Pressure 118/56 Pulmonary Artery Pressure 264/264 - Labs CBC & Chem 7: 09/19/24 05:00 09/19/24 05:00 Labs: Abnormal Lab Results - Last 24 Hours (Table) 09/18/24 09/18/24 09/18/24 Range/Units 07:50 07:50 11:53 WBC (3.8-10.6) k/uL RBC (4.30-5.90) m/uL Hgb (13.0-17.5) gm/dL Hct (39.0-53.0) % RDW (11.5-15.5) % Neutrophils # (1.3-7.7) k/uL APTT 66.7 H (22.0-30.0) sec Fibrinogen 555 H (200-500) mg/dL ABG pH (7.35-7.45) ABG pCO2 (35-45) mmHg ABG pO2 (83-108) mmHg ABG HCO3 (21-25) mmol/L ABG Total CO2 (19-24) mmol/L ABG O2 Saturation (94-97) % Hemoglobin (13.0-17.5) gm/dL Potassium (3.5-5.1) mmol/L BUN (9-20) mg/dL Creatinine (0.66-1.25) mg/dL Glucose (74-99) mg/dL POC Glucose (mg/dL) 189 H (70-110) mg/dL Calcium (8.4-10.2) mg/dL Alkaline Phosphatase (38-126) U/L Lactate Dehydrogenase 918 H (120-246) U/L Total Protein (6.3-8.2) g/dL Albumin (3.5-5.0) g/dL 09/18/24 09/18/24 09/18/24 Range/Units 12:38 16:00 16:00 WBC (3.8-10.6) k/uL RBC (4.30-5.90) m/uL Hgb (13.0-17.5) gm/dL Hct (39.0-53.0) % RDW (11.5-15.5) % Neutrophils # (1.3-7.7) k/uL APTT 69.2 H (22.0-30.0) sec Fibrinogen (200-500) mg/dL ABG pH 7.47 H (7.35-7.45) ABG pCO2 33 L (35-45) mmHg ABG pO2 224 H (83-108) mmHg ABG HCO3 (21-25) mmol/L ABG Total CO2 25 H (19-24) mmol/L ABG O2 Saturation >100.0 H (94-97) % Hemoglobin 10.1 L (13.0-17.5) gm/dL Potassium 3.2 L (3.5-5.1) mmol/L BUN (9-20) mg/dL Creatinine (0.66-1.25) mg/dL Glucose (74-99) mg/dL POC Glucose (mg/dL) (70-110) mg/dL Calcium (8.4-10.2) mg/dL Alkaline Phosphatase (38-126) U/L Lactate Dehydrogenase 802 H (120-246) U/L Total Protein (6.3-8.2) g/dL Albumin (3.5-5.0) g/dL 09/18/24 09/18/24 09/18/24 Range/Units 16:20 19:54 19:55 WBC (3.8-10.6) k/uL RBC (4.30-5.90) m/uL Hgb (13.0-17.5) gm/dL Hct (39.0-53.0) % RDW (11.5-15.5) % Neutrophils # (1.3-7.7) k/uL APTT (22.0-30.0) sec Fibrinogen (200-500) mg/dL ABG pH (7.35-7.45) ABG pCO2 (35-45) mmHg ABG pO2 (83-108) mmHg ABG HCO3 (21-25) mmol/L ABG Total CO2 (19-24) mmol/L ABG O2 Saturation (94-97) % Hemoglobin (13.0-17.5) gm/dL Potassium 3.3 L (3.5-5.1) mmol/L BUN (9-20) mg/dL Creatinine (0.66-1.25) mg/dL Glucose (74-99) mg/dL POC Glucose (mg/dL) 187 H 163 H (70-110) mg/dL Calcium (8.4-10.2) mg/dL Alkaline Phosphatase (38-126) U/L Lactate Dehydrogenase (120-246) U/L Total Protein (6.3-8.2) g/dL Albumin (3.5-5.0) g/dL 09/18/24 09/18/24 09/18/24 Range/Units 23:50 23:50 23:50 WBC (3.8-10.6) k/uL RBC (4.30-5.90) m/uL Hgb (13.0-17.5) gm/dL Hct (39.0-53.0) % RDW (11.5-15.5) % Neutrophils # (1.3-7.7) k/uL APTT 67.6 H (22.0-30.0) sec Fibrinogen 557 H (200-500) mg/dL ABG pH (7.35-7.45) ABG pCO2 (35-45) mmHg ABG pO2 (83-108) mmHg ABG HCO3 (21-25) mmol/L ABG Total CO2 (19-24) mmol/L ABG O2 Saturation (94-97) % Hemoglobin (13.0-17.5) gm/dL Potassium (3.5-5.1) mmol/L BUN (9-20) mg/dL Creatinine (0.66-1.25) mg/dL Glucose (74-99) mg/dL POC Glucose (mg/dL) (70-110) mg/dL Calcium (8.4-10.2) mg/dL Alkaline Phosphatase (38-126) U/L Lactate Dehydrogenase 829 H (120-246) U/L Total Protein (6.3-8.2) g/dL Albumin (3.5-5.0) g/dL 09/18/24 09/19/24 09/19/24 Range/Units 23:52 04:58 05:00 WBC (3.8-10.6) k/uL RBC (4.30-5.90) m/uL Hgb (13.0-17.5) gm/dL Hct (39.0-53.0) % RDW (11.5-15.5) % Neutrophils # (1.3-7.7) k/uL APTT 75.6 H (22.0-30.0) sec Fibrinogen (200-500) mg/dL ABG pH 7.52 H (7.35-7.45) ABG pCO2 31 L (35-45) mmHg ABG pO2 114 H (83-108) mmHg ABG HCO3 26 H (21-25) mmol/L ABG Total CO2 27 H (19-24) mmol/L ABG O2 Saturation 99.3 H (94-97) % Hemoglobin 10.9 L (13.0-17.5) gm/dL Potassium (3.5-5.1) mmol/L BUN (9-20) mg/dL Creatinine (0.66-1.25) mg/dL Glucose (74-99) mg/dL POC Glucose (mg/dL) 183 H (70-110) mg/dL Calcium (8.4-10.2) mg/dL Alkaline Phosphatase (38-126) U/L Lactate Dehydrogenase (120-246) U/L Total Protein (6.3-8.2) g/dL Albumin (3.5-5.0) g/dL 09/19/24 09/19/24 09/19/24 Range/Units 05:00 05:00 06:24 WBC 19.5 H (3.8-10.6) k/uL RBC 3.44 L (4.30-5.90) m/uL Hgb 10.6 L (13.0-17.5) gm/dL Hct 32.2 L (39.0-53.0) % RDW 15.8 H (11.5-15.5) % Neutrophils # 16.7 H (1.3-7.7) k/uL APTT (22.0-30.0) sec Fibrinogen (200-500) mg/dL ABG pH (7.35-7.45) ABG pCO2 (35-45) mmHg ABG pO2 (83-108) mmHg ABG HCO3 (21-25) mmol/L ABG Total CO2 (19-24) mmol/L ABG O2 Saturation (94-97) % Hemoglobin (13.0-17.5) gm/dL Potassium (3.5-5.1) mmol/L BUN 23 H (9-20) mg/dL Creatinine 1.26 H (0.66-1.25) mg/dL Glucose 192 H (74-99) mg/dL POC Glucose (mg/dL) 192 H (70-110) mg/dL Calcium 8.1 L (8.4-10.2) mg/dL Alkaline Phosphatase 186 H (38-126) U/L Lactate Dehydrogenase (120-246) U/L Total Protein 5.0 L (6.3-8.2) g/dL Albumin 2.4 L (3.5-5.0) g/dL Microbiology - Last 24 Hours (Table) 09/18/24 12:07 Gram Stain - Preliminary Sputum
[2024-09-19] MEDS: IV FLUID CONTINUATION 600 ML IV ONE (11:28)
[2024-09-19] MEDS: HEPARIN SODIUM 1,000 UN/ML (10ML VL) IVP ONE ×2 (12:08→13:42)
[2024-09-19 12:17] VITALS: BP 107/60; PULSE 62
--- NOTE | 2024-09-19 12:19 | P.PN ---
Subjective Progress Note Date: 09/19/24 \Hospital Course: 68-year-old male with PMH of DM type II, diabetic neuropathy, BPH, who presented to ED ED on. Pain, swelling, redness. n the ED he underwent extensive evaluation. BP 117/69, HR 103, T 98.1F, RR 20, 95% on RA. CBC, Coag panel, CMP significant for WBC 15.4, RBC 3.85, Hg 11.7, Hct 36, Na 136, BUN 23, glu 196, alk phos 22.1. Lactic acid 1.4. Mag 2.1. CRP 8.2. A1c 8.1. Foot XR showed moderate to severe diffuse soft tissue swelling with persistent linear 6 mm soft tissue foreign body at the level of 2nd proximal phalanx. Patient was started on Vancomycin and Zosyn and admitted for further workup and management. ID consulted recommended Vascular Sx consult. Antibiotics switched to Vancomycin and Unasyn by ID. Vascular Sx recommended amputation of the right big toe which was initially scheduled for 09/12. Patient reports shortness of breath on 09/11, CXR showed cardiomegaly and pulmonary vascular congestion for which he was started on Lasix IV. He developed chest pain on 09/12, Troponin 0.045, 0.043, started on Heparin drip and Cardiology consulted. He underwent cardiac cath on 09/13 which showed 90% proximal mid LAD stenosis, diagonal one 80%, OM1 90%, mid circumflex 100%, 99% mid RCA stenosis. He was hypotensive during the procedure which resulted in transfer to ICU on Levophed. Levophed was weaned off on 09/14. Repeat Echo showed EF 30-35% with inferior wall hypokinesis, moderate MR. Nephrology consulted for low urine output and SKYLA. No improvement in urine output with Lasix IV challenge. HD catheter inserted by Vascular on 09/15 for hemodialysis. ID switched Vancomycin for Daptomycin on 09/14. Patient underwent right heart cath with placement of Impella for cardiogenic shock in mid kidney and respiratory failure, likely plan for another heart cath on 09/19. Cardiology had extensive discussion with patient's son, patient was previously under hospice care however improved significantly and hospice was discontinued, patient seen and accepted risk of intubation and would like to proceed with the procedure. Patient underwent bronchoscopy 09/18 with left bronchus mucous plug removed, BAL, cultures sent. Patient remains intubated after, patient had CVC and arterial line placed, on Levophed, propofol. Prognosis is guarded. Pertinent Imaging: Chest x-ray reviewed small to moderate left greater than right pleural effusions, bilateral lower lung atelectasis Subjective: Intubated, sedated Vitals Signs Reviewed. General: [], [Intubated, sedated Derm: [warm], [dry], multiple bruises present Head: [atraumatic], [normocephalic], [symmetric] Eyes: [EOMI], [no lid lag], [anicteric sclera] Mouth: [no lip lesion], [mucus membranes moist], ETT, OG tube Cardiovascular: [S1S2 reg], [no murmur] Lungs: [CTA bilateral], very diminished sounds on the left] , [no accessory muscle use] Abdominal: [soft], [ nontender to palpation], [no guarding], [no appreciable organomegaly] Ext 4 and lower extremity edema ,scrotal edema, gangrenous toe Neuro: [ CN II-XI grossly intact], [no focal neuro deficits] Psych: unAble to assess Data Reviewed Today: Pertinent Labs: Leukocytosis 19.5, hemoglobin 10.6, platelet count 1 9, ABG with pH of 7.53, pCO2 31, creatinine 1.14, sodium and potassium normal, creatinine 1.26, blood glucose 120 Assessment and Plan: NSTEMI status post heart cath with Impella on 09/16/2024 Cardiogenic shock/ischemic cardiomyopathy plan acute HFrEF exacerbation EF 30 to 35% Acute hypoxic respiratory failure, left lung complete whiteout secondary to left mainstem bronchus mucous plug status post bronchoscopy and intubation 09/18 -Plan for another heart catheter on 09/19, -Continue aspirin, clopidogrel, atorvastatin -On IV Lasix 80 twice daily -Cardiology on board -Continue heparin drip -Pulmonology following -Prognosis guarded -Follow-up results of BAL, cultures SKYLA secondary to ATN in the settings of hypotension, contrast associated UTI Oliguria -On hemodialysis since 09/16/2024 via femoral catheter, another femoral catheter placed 09/18 -Nephrology following, HD, patient is nonoliguric Sepsis secondary to cellulitis. Osteomyelitis of the right great toe, gangrenous toe: Continue Unasyn 3g IV TID, Daptomycin 500 mg IV QD. ID and Vascular on board. Plans for amputation when stable with Vascular. History of hypertension Chronic tobacco use History of hyperlipidemia History of diabetes: Continue ISS,, carotid 11-year, will increase dose to 10 units, Accu-Cheks, hypoglycemia protocol DVT ppx: heparin Anticipated discharge place: Cpending clinical stability Anticipated discharge time: [pending clinical stability Objective - Vital Signs Vital signs: Vital Signs Temp 98.5 F 09/19/24 08:00 Pulse 62 09/19/24 11:15 Resp 17 09/19/24 11:15 BP 107/60 09/19/24 11:15 Pulse Ox 100 09/19/24 11:15 FiO2 50 09/19/24 09:30 Intake & Output 09/18/24 09/19/24 09/19/24 18:59 06:59 18:59 Intake Total 215.526 4700.011 556.418 Output Total 1170 2340 1120 Balance -339.186 -332.989 -563.582 Weight 109.4 kg Intake: IV 406 535 246 0.9% NS KVO 130 110 50 Ampicillin-Sulbactam 3 gm 100 100 In Sodium Chloride 0.9% 100 ml @ 200 mls/hr IVPB Q8H [facility] Rx#:[id number] DAPTOmycin 500 mg In 100 Sodium Chloride 0.9% 50 ml @ 100 mls/hr IVPB Q24HR@2100 [facility] Rx#: [id number] Impella Flow 143 156 66 Potassium Chloride 10 meq 100 In Water For Injection 1 100ml.bag @ 100 mls/hr IVPB Q1H [facility] Rx#: [id number] Pressure Bag 33 69 30 Intake, IV Titration 256.503 8431.011 250.418 Amount Ampicillin-Sulbactam 3 gm 200 In Sodium Chloride 0.9% 100 ml @ 200 mls/hr IVPB Q6H [facility] Rx#:[id number] Heparin Sod,Pork in 0.45% 341.416 NaCl 25,000 unit In 0.45 % NaCl 1 250ml.bag @ 9.2 UNITS/KG/HR 10.015 mls/hr IV .Q24H [facility] Rx#: [id number] Norepinephrine 4 mg In 250.797 215.435 63.213 Sodium Chloride 0.9% 250 ml @ 0.03 MCG/KG/MIN 12. 756 mls/hr IV .[id number] [facility] Rx#:[id number] Sodium Chloride 0.9% 1, 324 108 000 ml In Empty Bag 1 bag @ 1 ML/KG/HR 108.4 mls/ hr IV .Q9H14M [facility] Rx#: [id number] propofoL 1,000 mg In 114.017 211.160 79.205 Empty Bag 1 bag @ 15 MCG/ KG/MIN 10.026 mls/hr IV . Q9H59M [facility] Rx#:[id number] Oral 0 Tube Feeding 60 Other 60 120 60 Output: Urine 1170 2340 1120 Other: Voiding Method Indwelling Catheter Indwelling Catheter Indwelling Catheter ABP, PAP, CO, CI - Last Documented Arterial Blood Pressure 104/53 Pulmonary Artery Pressure 264/264 - Labs CBC & Chem 7: 09/19/24 05:00 09/19/24 10:50 Labs: Abnormal Lab Results - Last 24 Hours (Table) 09/18/24 09/18/24 09/18/24 Range/Units 12:38 16:00 16:00 WBC (3.8-10.6) k/uL RBC (4.30-5.90) m/uL Hgb (13.0-17.5) gm/dL Hct (39.0-53.0) % RDW (11.5-15.5) % Neutrophils # (1.3-7.7) k/uL APTT 69.2 H (22.0-30.0) sec Fibrinogen (200-500) mg/dL ABG pH 7.47 H (7.35-7.45) ABG pCO2 33 L (35-45) mmHg ABG pO2 224 H (83-108) mmHg ABG HCO3 (21-25) mmol/L ABG Total CO2 25 H (19-24) mmol/L ABG O2 Saturation >100.0 H (94-97) % Hemoglobin 10.1 L (13.0-17.5) gm/dL Potassium 3.2 L (3.5-5.1) mmol/L BUN (9-20) mg/dL Creatinine (0.66-1.25) mg/dL Glucose (74-99) mg/dL POC Glucose (mg/dL) (70-110) mg/dL Calcium (8.4-10.2) mg/dL Alkaline Phosphatase (38-126) U/L Lactate Dehydrogenase 802 H (120-246) U/L Total Protein (6.3-8.2) g/dL Albumin (3.5-5.0) g/dL 09/18/24 09/18/24 09/18/24 Range/Units 16:20 19:54 19:55 WBC (3.8-10.6) k/uL RBC (4.30-5.90) m/uL Hgb (13.0-17.5) gm/dL Hct (39.0-53.0) % RDW (11.5-15.5) % Neutrophils # (1.3-7.7) k/uL APTT (22.0-30.0) sec Fibrinogen (200-500) mg/dL ABG pH (7.35-7.45) ABG pCO2 (35-45) mmHg ABG pO2 (83-108) mmHg ABG HCO3 (21-25) mmol/L ABG Total CO2 (19-24) mmol/L ABG O2 Saturation (94-97) % Hemoglobin (13.0-17.5) gm/dL Potassium 3.3 L (3.5-5.1) mmol/L BUN (9-20) mg/dL Creatinine (0.66-1.25) mg/dL Glucose (74-99) mg/dL POC Glucose (mg/dL) 187 H 163 H (70-110) mg/dL Calcium (8.4-10.2) mg/dL Alkaline Phosphatase (38-126) U/L Lactate Dehydrogenase (120-246) U/L Total Protein (6.3-8.2) g/dL Albumin (3.5-5.0) g/dL 09/18/24 09/18/24 09/18/24 Range/Units 23:50 23:50 23:50 WBC (3.8-10.6) k/uL RBC (4.30-5.90) m/uL Hgb (13.0-17.5) gm/dL Hct (39.0-53.0) % RDW (11.5-15.5) % Neutrophils # (1.3-7.7) k/uL APTT 67.6 H (22.0-30.0) sec Fibrinogen 557 H (200-500) mg/dL ABG pH (7.35-7.45) ABG pCO2 (35-45) mmHg ABG pO2 (83-108) mmHg ABG HCO3 (21-25) mmol/L ABG Total CO2 (19-24) mmol/L ABG O2 Saturation (94-97) % Hemoglobin (13.0-17.5) gm/dL Potassium (3.5-5.1) mmol/L BUN (9-20) mg/dL Creatinine (0.66-1.25) mg/dL Glucose (74-99) mg/dL POC Glucose (mg/dL) (70-110) mg/dL Calcium (8.4-10.2) mg/dL Alkaline Phosphatase (38-126) U/L Lactate Dehydrogenase 829 H (120-246) U/L Total Protein (6.3-8.2) g/dL Albumin (3.5-5.0) g/dL 09/18/24 09/19/24 09/19/24 Range/Units 23:52 04:58 05:00 WBC (3.8-10.6) k/uL RBC (4.30-5.90) m/uL Hgb (13.0-17.5) gm/dL Hct (39.0-53.0) % RDW (11.5-15.5) % Neutrophils # (1.3-7.7) k/uL APTT 75.6 H (22.0-30.0) sec Fibrinogen (200-500) mg/dL ABG pH 7.52 H (7.35-7.45) ABG pCO2 31 L (35-45) mmHg ABG pO2 114 H (83-108) mmHg ABG HCO3 26 H (21-25) mmol/L ABG Total CO2 27 H (19-24) mmol/L ABG O2 Saturation 99.3 H (94-97) % Hemoglobin 10.9 L (13.0-17.5) gm/dL Potassium (3.5-5.1) mmol/L BUN (9-20) mg/dL Creatinine (0.66-1.25) mg/dL Glucose (74-99) mg/dL POC Glucose (mg/dL) 183 H (70-110) mg/dL Calcium (8.4-10.2) mg/dL Alkaline Phosphatase (38-126) U/L Lactate Dehydrogenase (120-246) U/L Total Protein (6.3-8.2) g/dL Albumin (3.5-5.0) g/dL 09/19/24 09/19/24 09/19/24 Range/Units 05:00 05:00 06:24 WBC 19.5 H (3.8-10.6) k/uL RBC 3.44 L (4.30-5.90) m/uL Hgb 10.6 L (13.0-17.5) gm/dL Hct 32.2 L (39.0-53.0) % RDW 15.8 H (11.5-15.5) % Neutrophils # 16.7 H (1.3-7.7) k/uL APTT (22.0-30.0) sec Fibrinogen (200-500) mg/dL ABG pH (7.35-7.45) ABG pCO2 (35-45) mmHg ABG pO2 (83-108) mmHg ABG HCO3 (21-25) mmol/L ABG Total CO2 (19-24) mmol/L ABG O2 Saturation (94-97) % Hemoglobin (13.0-17.5) gm/dL Potassium (3.5-5.1) mmol/L BUN 23 H (9-20) mg/dL Creatinine 1.26 H (0.66-1.25) mg/dL Glucose 192 H (74-99) mg/dL POC Glucose (mg/dL) 192 H (70-110) mg/dL Calcium 8.1 L (8.4-10.2) mg/dL Alkaline Phosphatase 186 H (38-126) U/L Lactate Dehydrogenase (120-246) U/L Total Protein 5.0 L (6.3-8.2) g/dL Albumin 2.4 L (3.5-5.0) g/dL 09/19/24 09/19/24 Range/Units 07:55 07:55 WBC (3.8-10.6) k/uL RBC (4.30-5.90) m/uL Hgb (13.0-17.5) gm/dL Hct (39.0-53.0) % RDW (11.5-15.5) % Neutrophils # (1.3-7.7) k/uL APTT (22.0-30.0) sec Fibrinogen 547 H (200-500) mg/dL ABG pH (7.35-7.45) ABG pCO2 (35-45) mmHg ABG pO2 (83-108) mmHg ABG HCO3 (21-25) mmol/L ABG Total CO2 (19-24) mmol/L ABG O2 Saturation (94-97) % Hemoglobin (13.0-17.5) gm/dL Potassium (3.5-5.1) mmol/L BUN (9-20) mg/dL Creatinine (0.66-1.25) mg/dL Glucose (74-99) mg/dL POC Glucose (mg/dL) (70-110) mg/dL Calcium (8.4-10.2) mg/dL Alkaline Phosphatase (38-126) U/L Lactate Dehydrogenase 822 H (120-246) U/L Total Protein (6.3-8.2) g/dL Albumin (3.5-5.0) g/dL Microbiology - Last 24 Hours (Table) 09/18/24 12:07 Gram Stain - Preliminary Sputum
[2024-09-19 12:23] VITALS: BMI 38.9
[2024-09-19 12:39] LABS: O2 Sat Blood Gas 66.5 %
[2024-09-19 12:41] LABS: O2 Sat Blood Gas 68.1 %
[2024-09-19 12:42] LABS: O2 Sat Blood Gas 95.7 %
--- NOTE | 2024-09-19 13:07 | P.PN ---
Subjective Progress Note Date: 09/19/24 Principal diagnosis: Reason for follow-up right first and second toe diabetic foot infection Patient is a 68-year-old male with a past medical history significant for diabetes mellitus osteoarthritis neuropathy patient did have a left big toe diabetic foot infection requiring left big toe amputation subsequently admitted to the hospital for evaluation of the right big and second toe discoloration mostly on the big toe concerning for diabetic foot infection prompted this consultation. Patient is status post cardiac cath on 09/13/2024 with evidence of significant coronary disease involving the LAD SOULEYMANE and circumflex as well as RCA stenosis no intervention On today's evaluation that is 09/19/2024,the patient remains to be afebrile, patient is on ventilator FiO2 at 50% patient is still pending stable not requiring any pressor support today as reported by the nursing staff no diarrhea no changes reported by nursing staff. Patient white count 7.5 about the same as yesterday creatinine is 1.26 sputum is growing gram-negative bacilli Objective - Vital Signs Vital signs: Vital Signs Temp 98.5 F 09/19/24 08:00 Pulse 62 09/19/24 11:15 Resp 17 09/19/24 11:15 BP 107/60 09/19/24 11:15 Pulse Ox 100 09/19/24 11:15 FiO2 50 09/19/24 09:30 Intake & Output 09/18/24 09/19/24 09/19/24 18:59 06:59 18:59 Intake Total 285.874 3487.011 556.418 Output Total 1170 2340 1120 Balance -339.186 -332.989 -563.582 Weight 109.4 kg 109.4 kg Intake: IV 406 535 246 0.9% NS KVO 130 110 50 Ampicillin-Sulbactam 3 gm 100 100 In Sodium Chloride 0.9% 100 ml @ 200 mls/hr IVPB Q8H [facility] Rx#:[id number] DAPTOmycin 500 mg In 100 Sodium Chloride 0.9% 50 ml @ 100 mls/hr IVPB Q24HR@2100 [facility] Rx#: [id number] Impella Flow 143 156 66 Potassium Chloride 10 meq 100 In Water For Injection 1 100ml.bag @ 100 mls/hr IVPB Q1H [facility] Rx#: [id number] Pressure Bag 33 69 30 Intake, IV Titration 393.203 6116.011 250.418 Amount Ampicillin-Sulbactam 3 gm 200 In Sodium Chloride 0.9% 100 ml @ 200 mls/hr IVPB Q6H [facility] Rx#:[id number] Heparin Sod,Pork in 0.45% 341.416 NaCl 25,000 unit In 0.45 % NaCl 1 250ml.bag @ 9.2 UNITS/KG/HR 10.015 mls/hr IV .Q24H [facility] Rx#: [id number] Norepinephrine 4 mg In 250.797 215.435 63.213 Sodium Chloride 0.9% 250 ml @ 0.03 MCG/KG/MIN 12. 756 mls/hr IV .N21H22L [facility] Rx#:[id number] Sodium Chloride 0.9% 1, 324 108 000 ml In Empty Bag 1 bag @ 1 ML/KG/HR 108.4 mls/ hr IV .Q9H14M [facility] Rx#: [id number] propofoL 1,000 mg In 114.017 211.160 79.205 Empty Bag 1 bag @ 15 MCG/ KG/MIN 10.026 mls/hr IV . Q9H59M [facility] Rx#:[id number] Oral 0 Tube Feeding 60 Other 60 120 60 Output: Urine 1170 2340 1120 Other: Voiding Method Indwelling Catheter Indwelling Catheter Indwelling Catheter ABP, PAP, CO, CI - Last Documented Arterial Blood Pressure 104/53 Pulmonary Artery Pressure 264/264 - Exam GENERAL DESCRIPTION: An elderly male intubated on the vent RESPIRATORY SYSTEM: Unlabored breathing , decreased breath sounds at bases HEART: S1 S2 regular rate and rhythm , ABDOMEN: Soft , no tenderness EXTREMITIES: Right big toe discoloration swelling no foul-smelling drainage - Labs CBC & Chem 7: 09/19/24 05:00 09/19/24 10:50 Labs: Abnormal Lab Results - Last 24 Hours (Table) 09/18/24 09/18/24 09/18/24 Range/Units 16:00 16:00 16:20 WBC (3.8-10.6) k/uL RBC (4.30-5.90) m/uL Hgb (13.0-17.5) gm/dL Hct (39.0-53.0) % RDW (11.5-15.5) % Neutrophils # (1.3-7.7) k/uL APTT 69.2 H (22.0-30.0) sec Fibrinogen (200-500) mg/dL ABG pH (7.35-7.45) ABG pCO2 (35-45) mmHg ABG pO2 (83-108) mmHg ABG HCO3 (21-25) mmol/L ABG Total CO2 (19-24) mmol/L ABG O2 Saturation (94-97) % Hemoglobin (13.0-17.5) gm/dL Potassium 3.2 L (3.5-5.1) mmol/L BUN (9-20) mg/dL Creatinine (0.66-1.25) mg/dL Glucose (74-99) mg/dL POC Glucose (mg/dL) 187 H (70-110) mg/dL Calcium (8.4-10.2) mg/dL Alkaline Phosphatase (38-126) U/L Lactate Dehydrogenase 802 H (120-246) U/L Total Protein (6.3-8.2) g/dL Albumin (3.5-5.0) g/dL 09/18/24 09/18/24 09/18/24 Range/Units 19:54 19:55 23:50 WBC (3.8-10.6) k/uL RBC (4.30-5.90) m/uL Hgb (13.0-17.5) gm/dL Hct (39.0-53.0) % RDW (11.5-15.5) % Neutrophils # (1.3-7.7) k/uL APTT (22.0-30.0) sec Fibrinogen 557 H (200-500) mg/dL ABG pH (7.35-7.45) ABG pCO2 (35-45) mmHg ABG pO2 (83-108) mmHg ABG HCO3 (21-25) mmol/L ABG Total CO2 (19-24) mmol/L ABG O2 Saturation (94-97) % Hemoglobin (13.0-17.5) gm/dL Potassium 3.3 L (3.5-5.1) mmol/L BUN (9-20) mg/dL Creatinine (0.66-1.25) mg/dL Glucose (74-99) mg/dL POC Glucose (mg/dL) 163 H (70-110) mg/dL Calcium (8.4-10.2) mg/dL Alkaline Phosphatase (38-126) U/L Lactate Dehydrogenase (120-246) U/L Total Protein (6.3-8.2) g/dL Albumin (3.5-5.0) g/dL 09/18/24 09/18/24 09/18/24 Range/Units 23:50 23:50 23:52 WBC (3.8-10.6) k/uL RBC (4.30-5.90) m/uL Hgb (13.0-17.5) gm/dL Hct (39.0-53.0) % RDW (11.5-15.5) % Neutrophils # (1.3-7.7) k/uL APTT 67.6 H (22.0-30.0) sec Fibrinogen (200-500) mg/dL ABG pH (7.35-7.45) ABG pCO2 (35-45) mmHg ABG pO2 (83-108) mmHg ABG HCO3 (21-25) mmol/L ABG Total CO2 (19-24) mmol/L ABG O2 Saturation (94-97) % Hemoglobin (13.0-17.5) gm/dL Potassium (3.5-5.1) mmol/L BUN (9-20) mg/dL Creatinine (0.66-1.25) mg/dL Glucose (74-99) mg/dL POC Glucose (mg/dL) 183 H (70-110) mg/dL Calcium (8.4-10.2) mg/dL Alkaline Phosphatase (38-126) U/L Lactate Dehydrogenase 829 H (120-246) U/L Total Protein (6.3-8.2) g/dL Albumin (3.5-5.0) g/dL 09/19/24 09/19/24 09/19/24 Range/Units 04:58 05:00 05:00 WBC 19.5 H (3.8-10.6) k/uL RBC 3.44 L (4.30-5.90) m/uL Hgb 10.6 L (13.0-17.5) gm/dL Hct 32.2 L (39.0-53.0) % RDW 15.8 H (11.5-15.5) % Neutrophils # 16.7 H (1.3-7.7) k/uL APTT 75.6 H (22.0-30.0) sec Fibrinogen (200-500) mg/dL ABG pH 7.52 H (7.35-7.45) ABG pCO2 31 L (35-45) mmHg ABG pO2 114 H (83-108) mmHg ABG HCO3 26 H (21-25) mmol/L ABG Total CO2 27 H (19-24) mmol/L ABG O2 Saturation 99.3 H (94-97) % Hemoglobin 10.9 L (13.0-17.5) gm/dL Potassium (3.5-5.1) mmol/L BUN (9-20) mg/dL Creatinine (0.66-1.25) mg/dL Glucose (74-99) mg/dL POC Glucose (mg/dL) (70-110) mg/dL Calcium (8.4-10.2) mg/dL Alkaline Phosphatase (38-126) U/L Lactate Dehydrogenase (120-246) U/L Total Protein (6.3-8.2) g/dL Albumin (3.5-5.0) g/dL 09/19/24 09/19/24 09/19/24 Range/Units 05:00 06:24 07:55 WBC (3.8-10.6) k/uL RBC (4.30-5.90) m/uL Hgb (13.0-17.5) gm/dL Hct (39.0-53.0) % RDW (11.5-15.5) % Neutrophils # (1.3-7.7) k/uL APTT (22.0-30.0) sec Fibrinogen 547 H (200-500) mg/dL ABG pH (7.35-7.45) ABG pCO2 (35-45) mmHg ABG pO2 (83-108) mmHg ABG HCO3 (21-25) mmol/L ABG Total CO2 (19-24) mmol/L ABG O2 Saturation (94-97) % Hemoglobin (13.0-17.5) gm/dL Potassium (3.5-5.1) mmol/L BUN 23 H (9-20) mg/dL Creatinine 1.26 H (0.66-1.25) mg/dL Glucose 192 H (74-99) mg/dL POC Glucose (mg/dL) 192 H (70-110) mg/dL Calcium 8.1 L (8.4-10.2) mg/dL Alkaline Phosphatase 186 H (38-126) U/L Lactate Dehydrogenase (120-246) U/L Total Protein 5.0 L (6.3-8.2) g/dL Albumin 2.4 L (3.5-5.0) g/dL 09/19/24 Range/Units 07:55 WBC (3.8-10.6) k/uL RBC (4.30-5.90) m/uL Hgb (13.0-17.5) gm/dL Hct (39.0-53.0) % RDW (11.5-15.5) % Neutrophils # (1.3-7.7) k/uL APTT (22.0-30.0) sec Fibrinogen (200-500) mg/dL ABG pH (7.35-7.45) ABG pCO2 (35-45) mmHg ABG pO2 (83-108) mmHg ABG HCO3 (21-25) mmol/L ABG Total CO2 (19-24) mmol/L ABG O2 Saturation (94-97) % Hemoglobin (13.0-17.5) gm/dL Potassium (3.5-5.1) mmol/L BUN (9-20) mg/dL Creatinine (0.66-1.25) mg/dL Glucose (74-99) mg/dL POC Glucose (mg/dL) (70-110) mg/dL Calcium (8.4-10.2) mg/dL Alkaline Phosphatase (38-126) U/L Lactate Dehydrogenase 822 H (120-246) U/L Total Protein (6.3-8.2) g/dL Albumin (3.5-5.0) g/dL Microbiology - Last 24 Hours (Table) 09/18/24 12:07 Gram Stain - Preliminary Sputum Sputum Culture - Preliminary Gram Neg Bacilli 09/18/24 16:00 Gram Stain - Preliminary Bronchoalviolar Lavage - Left 09/18/24 07:45 Blood Culture - Preliminary Blood Assessment and Plan (1) Diabetic foot infection Current Visit: Yes Status: Acute Code(s): E11.628 - TYPE 2 DIABETES MELLITUS WITH OTHER SKIN COMPLICATIONS; L08.9 - LOCAL INFECTION OF THE SKIN AND SUBCUTANEOUS TISSUE, UNSP SNOMED Code(s): 912707540 (2) Diabetic foot ulcer Current Visit: Yes Status: Acute Code(s): E11.621 - TYPE 2 DIABETES MELLITUS WITH FOOT ULCER; L97.509 - NON-PRESSURE CHRONIC ULCER OTH PRT UNSP FOOT W UNSP SEVERITY SNOMED Code(s): 865818650 (3) Gram-negative pneumonia Current Visit: Yes Status: Acute Code(s): J15.69 - PNEUMONIA DUE TO OTHER GRAM-NEGATIVE BACTERIA SNOMED Code(s): 996201346 Plan: 1patient presented to hospital with discoloration to the right first and second toe in this patient who did have a previous history of left diabetic foot infection osteomyelitis requiring amputation of left big toe culture at that time was positive for MRSA and Finegoldia magna 2patient has been evaluated by vascular surgery and planning for amputation of the right first and second toe, per surgery has been put on hold because of pat ient developing chest pain did have a cardiac cath with evidence of multivessel disease no intervention was done because of his cardiac decompensation 3patient also noticed to have worsening of his creatinine and has been started on dialysis, 4-patient is afebrile however noted to have worsening of his white count sputum growing gram-negative I will switch Unasyn to Zosyn while waiting for sensit ivity of the gram-negative continue with daptomycin for right big toe diabetic foot infection with previous culture positive for MRSA Dictation was produced using [employer] dictation software. please excuse any grammatical, word or spelling errors. Time with Patient: Less than 30
[2024-09-19] MEDS: NITROGLYCERIN 1000MCG/10ML SYRINGE INTRACORON ONE (13:17)
[2024-09-19] MEDS: NOREPINEPHRINE 4 MG in SODIUM CHLORIDE 0.9% 250 ML IV ONE (13:24)
[2024-09-19] MEDS: EPINEPHrine 10 ML SYRINGE (0.1 MG/ML) MISCELLANE ONE ×2 (14:29→14:45)
[2024-09-19] MEDS: IOPAMIDOL-370 100ML BTL INJ ONE (14:50)
[2024-09-19] MEDS: SODIUM BICARB 8.4% 50 ML VIAL (1 MEQ/ML) IVPB ONE (14:54)
[2024-09-19] MEDS: PROTAMINE SULFATE 10 MG/ML 5 ML VIAL IVPB ONE (15:15)
[2024-09-19] MEDS ORDERED: EPINEPHrine 4 MG in DEXTROSE 5% IN WATER 250 ML IV SCH (15:30)
[2024-09-19] MEDS ORDERED: PIPERACILLIN-TAZOBACTAM 3.375 GM in SODIUM CHLORIDE 0.9% 100 ML IVPB SCH (16:00)
[2024-09-19 16:04] LABS: ABG Base Excess -2.3 mmol/L; ABG HCO3 24 mmol/L (21-25); ABG Oxygen Saturation 90.4 % (94-97); ABG PCO2 44 mmHg (35-45); ABG PH 7.33 (7.35-7.45); ABG PO2 64 mmHg (83-108); ABG TCO2 25 mmol/L (19-24)
[2024-09-19 16:06] LABS: Allen Test Performed? no
--- NOTE | 2024-09-19 16:48 | P.DS ---
Providers Date of admission: 09/10/24 07:50 Attending physician: Zohaib Choi Consults: 09/10/24 07:47 Consult Physician Urgent Consulting Provider: Pratik Grady Consult Reason/Comments: Diabetic foot infection, established patient Do you want consulting provider notified?: Yes 09/10/24 11:22 Consult Physician Routine Consulting Provider: Hailey Villegas Consult Reason/Comments: Diabetic foot ulcer Do you want consulting provider notified?: Yes 09/12/24 14:14 Consult Physician Routine Consulting Provider: Alfred Dean Consult Reason/Comments: chest pain Do you want consulting provider notified?: Yes 09/13/24 15:31 Consult Physician Urgent Consulting Provider: Marii France Consult Reason/Comments: ICU Admission Do you want consulting provider notified?: Yes 09/14/24 02:55 Consult Physician Routine Consulting Provider: Barber Garcia Consult Reason/Comments: Oliguria Do you want consulting provider notified?: Yes, Notify in am Primary care physician: Padilla Garcia MD Hospital Course: Discharge Diagnosis: Cardiogenic shock Tamponade Cardiopulmonary arrest NSTEMI status post heart cath with Impella on 09/16/2024 ischemic cardiomyopathy plan acute HFrEF exacerbation EF 30 to 35% SKYLA secondary to ATN in the settings of hypotension, contrast associated UTI History of hypertension Chronic tobacco use History of hyperlipidemia History of diabetes: Hospital Course: 68-year-old male with PMH of DM type II, diabetic neuropathy, BPH, who presented to ED ED on. Pain, swelling, redness. In the ED he underwent extensive evaluation. BP 117/69, HR 103, T 98.1F, RR 20, 95% on RA. CBC, Coag panel, CMP significant for WBC 15.4, RBC 3.85, Hg 11.7, Hct 36, Na 136, BUN 23, glu 196, alk phos 22.1. Lactic acid 1.4. Mag 2.1. CRP 8.2. A1c 8.1. Foot XR showed moderate to severe diffuse soft tissue swelling with persistent linear 6 mm soft tissue foreign body at the level of 2nd proximal phalanx. Patient was started on Vancomycin and Zosyn and admitted for further workup and management. ID consulted recommended Vascular Sx consult. Antibiotics switched to Vancomycin and Unasyn by ID. Vascular Sx recommended amputation of the right big toe which was initially scheduled for 09/12. Patient reports shortness of breath on 09/11, CXR showed cardiomegaly and pulmonary vascular congestion for which he was started on Lasix IV. He developed chest pain on 09/12, Troponin 0.045, 0.043, started on Heparin drip and Cardiology consulted. He underwent cardiac cath on 09/13 which showed 90% proximal mid LAD stenosis, diagonal one 80%, OM1 90%, mid circumflex 100%, 99% mid RCA stenosis. He was hypotensive during the procedure which resulted in transfer to ICU on Levophed. Levophed was weaned off on 09/14. Repeat Echo showed EF 30-35% with inferior wall hypokinesis, moderate MR. Nephrology consulted for low urine output and SKYLA. No improvement in urine output with Lasix IV challenge. HD catheter inserted by Vascular on 09/15 for hemodialysis. ID switched Vancomycin for Daptomycin on 09/14. Patient underwent right heart cath with placement of Impella for cardiogenic shock in mid kidney and respiratory failure, likely plan for another heart cath on 09/19. Cardiology had extensive discussion with patient's son, patient was previously under hospice care however improved significantly and hospice was discontinued, patient seen and accepted risk of intubation and would like to proceed with the procedure. Patient underwent bronchoscopy 09/18 with left bronchus mucous plug removed, BAL, cultures sent. Patient remains intubated after, patient had CVC and arterial line placed, on Levophed, propofol 09/19 was taken to cathlab, where he coded, was found to have tamponade. Code started 1455. Time of called 1610. A total of [40] minutes of time were spent preparing this complex discharge summary. Patient was discharged as diceased Patient Condition at Discharge: Fair Plan - Discharge Summary Discharge Rx Participant: Yes New Discharge Prescriptions: No Action Albuterol Inhaler [Ventolin Hfa Inhaler] 3 puff INHALATION RT-QID PRN PRN Reason: Shortness Of Breath Furosemide [Lasix] 20 mg PO DAILY #14 tab Acetaminophen 500 - 1,000 mg PO Q8H PRN PRN Reason: Pain Or Fever > 100.5 Tamsulosin [Flomax] 0.4 mg PO HS Spironolactone [Aldactone] 25 mg PO DAILY #7 tablet Haloperidol Oral Soln [Haldol Oral Soln] 2 - 4 mg PO Q4H PRN PRN Reason: Agitation Insulin Glargine (Lantus) [Lantus Vial] 20 unit SQ HS LORazepam [Ativan] 0.5 - 1 mg PO Q12H PRN PRN Reason: Anxiety Nystatin 100,000 Unit/gm Powd [Mycostatin Powder] 1 applic TOPICAL TID Prochlorperazine Suppository [Compazine] 25 mg RECTAL Q8H PRN PRN Reason: Nausea Sennosides/Docusate Sodium [Senna Plus 8.6-50 mg Tablet] 1 tab PO BID PRN PRN Reason: Constipation Discharge Medication List Albuterol Inhaler [Ventolin Hfa Inhaler] 3 puff INHALATION RT-QID PRN 05/21/24 [History] Tamsulosin [Flomax] 0.4 mg PO HS 06/13/24 [History] Furosemide [Lasix] 20 mg PO DAILY #14 tab 06/18/24 [Rx] Spironolactone [Aldactone] 25 mg PO DAILY #7 tablet 06/19/24 [Rx] Acetaminophen 500 - 1,000 mg PO Q8H PRN 09/10/24 [History] Haloperidol Oral Soln [Haldol Oral Soln] 2 - 4 mg PO Q4H PRN 09/10/24 [History] Insulin Glargine (Lantus) [Lantus Vial] 20 unit SQ HS 09/10/24 [History] LORazepam [Ativan] 0.5 - 1 mg PO Q12H PRN 09/10/24 [History] Nystatin 100,000 Unit/gm Powd [Mycostatin Powder] 1 applic TOPICAL TID 09/10/24 [History] Prochlorperazine Suppository [Compazine] 25 mg RECTAL Q8H PRN 09/10/24 [History] Sennosides/Docusate Sodium [Senna Plus 8.6-50 mg Tablet] 1 tab PO BID PRN 09/10/24 [History] Follow up Appointment(s)/Referral(s): None,Stated [REFERRING] - 1-2 days Provider,[facility] [NON-STAFF] - As Needed
--- NOTE | 2024-09-19 17:34 | P.EN ---
CODE BLUE called overhead. 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 1 hour prior, patient had pericardiocentesis for pericardial tamponade. He had an Impella placed during that time as well. During this particular code, patient received multiple rounds of epi, bicarb, calcium, but did not achieve ROSC. After further discussion between cardiology and family, code was stopped per family request. Impella was turned off. Patient subsequently .
--- NOTE | 2024-09-19 17:45 | P.PRCINT ---
Percutaneous Coronary Int. - Percutaneous Coronary Intervention Percutaneous Coronary Intervention: PROCEDURES PERFORMED: Left heart catheterization, Right heart catheterization, bilateral coronary angiography, complex Impella protected PCI mid to distal RCA with overlapping 3.0 x 12, 3.0 x 28, 3.0 x 18mm Xience CHERRY, post dilated with a 3.25mm NC balloon, Shockwave lithotripsy RCA with a 2.5 x 12mm balloon, IVUS RCA, PCI mid LAD with overlapping 3.25 x 18mm and 3.25 x 15mm Xience CHERRY, post dilated with a 3.5mm NC balloon, Shockwave lithotripsy with a 3.0mm NC balloon, IVUS LAD, pericardial drain placement, pericardiocentesis, ultrasound guided access INDICATION: NSTEMI, ischemic cardiomyopathy, cardiogenic shock CONSENT:I have discussed the risks, benefits and alternative therapies for the above-mentioned procedure and for both sedation/analgesia as well as necessary blood product administration, if indicated, as they pertain to this patient. The patient's son has indicated understanding and acceptance of the risks and procedures discussed. PROCEDURE: After the risks, benefits and alternatives of the above mentioned procedure explained in detail with the patient's son, informed consent was obtained. Patient was taken to the catheterization lab and prepped and draped in usual fashion. Patient had a previous Impella CP that had been placed through the left femoral artery with a 14Fr sheath. The decision was made to perform a right heart catheterization to assess cardiac output and hemodynamics during procedure. Using ultrasound guidance, a 6-Latvian sheath was placed in the left femoral vein. Next a 6-Latvian catheter was inserted and the PA, pulmonary capillary wedge position, RV and RA. Oxygen saturation and pressure measurements were obtained. Thermodilution was performed. Initial CI was 2.1 L/min/m2 on P6. The decision was made to perform PCI of the RCA. Through the 14-Latvian sheath, a additional 7-Latvian sheath was placed at the 12 o'clock position of the Impella. Next a 6-Latvian AL 0.75 guide was used to engage the RCA. A 0.014 whisper wire was placed in the PDA as well as PLV. Predilation was performed initially with a 2.0 mm balloon and then 2.5 mm noncompliant balloon. There was some difficulty advancing a shock wave 2.5 mm balloon and therefore predilation was performed again with a 3.25 mm noncompliant balloon. With the help of the noncompliant balloon, shockwave was able to be advanced in shock wave was performed on the mid RCA. Next a 3.0 x 18 mm drug-eluting stent was advanced into the distal RCA. An additional 3.0 x 28 mm drug-eluting stent was placed in the mid RCA and then finally an additional 3.0 x 12 mm drug-eluting stent was placed at the proximal edge. Limited angiograms were performed secondary to recent acute kidney injury with possible contrast-induced nephropathy. Intravascular ultrasound showed well expanded stents. The stent was postdilated with a 3.25 mm noncompliant balloon. Final angiograms were performed. Prevention there was 99% stenosis with OSKAR 2 flow and postintervention there was less than 10% stenosis with OSKAR 2-3 flow. Decision was made to perform PCI of the LAD. A 6-Latvian CLS 4.0 guide was used to engage the left main. A 0.014 whisper wire was advanced in the distal LAD. Using the help of a guideliner, serial predilation was performed with a 2.0 x 8 mm noncompliant balloon at on a 3.0 x 8 mm noncompliant balloon. Next shockwave lithotripsy was performed with a 3.0 balloon. Next predilation was again performed with a 3.5 mm x 8 noncompliant balloon with significant waist and inability to expand a heavily calcified area. With high inflations this was able to be predilated. Next a 3.25 x 23 mm drug-eluting stent was placed in the mid to distal LAD. An additional 3.25 x 18 mm drug-eluting stent was placed overlapping more proximally. The stent was postdilated with a 3.5 mm n oncompliant balloon. Repeat intravascular ultrasound showed well expanded stents. Final angiograms were performed. Prevention there was 95% stenosis and OSKAR-3 flow and postintervention there was less than 10% stenosis with OSKAR 3 flow. Initially patient had tolerated procedure well. Patient however started to become more hypotensive requiring more vasopressors. Thermodilution was again performed with decreased cardiac index down to 1.5. Patient continued to deteriorate and bedside ultrasound showed new pericardial effusion with tamponade physiology. Therefore using an 18-gauge needle the pericardial space was accessed and a pericardial drain was placed. 370 mL of bright red blood were removed and given back to patient through the venous femoral sheath. Ultrasound did not show any significant color flow. Patient initially improved after removal of pericardial effusion however continued to have decompensation. Protamine was given. Decompensation felt likely related to progressive cardiogenic shock from low EF. Patient continued to have decline despite maximum Impella output 3.5 L/m with vasopressors. Findings discussed with son who did not want more aggressive measures and artery take in. Patient coded for approximately 20 minutes and son requesting no further aggressive measures. CPR was stopped and patient . Conscious Sedation: Patient was monitored under the direct supervision of myself for conscious sedation using Versed and fentanyl for a total duration of 205 minutes HEMODYNAMICS: Aorta: 107/46 LV: 110/6, LVEDP 15 PCWP: 10 PA: 40/12 RV: 40/5 RA: 8 RA oxygen saturation: 67% PA oxygen saturation: 68% Left femoral oxygen saturation: 96% Cardiac output by Moe: 7.7 L/m Cardiac index by Moe: 3.5 L/m/m Cardiac output by thermodilution: 4.4 L/m Cardiac index by thermodilution (on Impella CP at P6): 2.0 L/m/m SELECTIVE CORONARY ARTERIOGRAPHY: LEFT MAIN: The left main is a large caliber vessel which bifurcates into the LAD and circumflex. There is diffuse 20-30% stenosis. LEFT ANTERIOR DESCENDING CORONARY ARTERY: LAD is a large caliber vessel which wraps around to the apex. There is diffuse 20-30% stenosis of the entire LAD with a more focal 60-70% mid LAD and focal 95% stenosis which is heavily calcified. The mid to distal LAD has mild 20-30% stenosis. There are left to right collaterals and left to left collaterals. There is a small caliber diagonal 1 branch with diffuse proximal 90% stenosis. LEFT CIRCUMFLEX CORONARY ARTERY: Left circumflex is a moderate caliber vessel with 100% stenosis after a small caliber OM1 with OM1 having a proximal 90% stenosis RIGHT CORONARY ARTERY: The right coronary artery is a large caliber vessel which gives off a PDA and PLV branch and is the dominant vessel. There is proximal 4 0-50% RCA stenosis. The mid to distial RCA has a 99% mid RCA stenosis and a 99% distal RCA stenosis. The PLV has diffuse disease and the PDA also has diffuse mild disease FINAL IMPRESSION: 1. CAD as described above including 100% circumflex, 95% LAD, 99% RCA stenosis 2. Cardiogenic shock on Impella 3. S/p Impella protected PCI mid to distal RCA with overlapping 3.0 x 12, 3.0 x 28, 3.0 x 18mm Xience CHERRY, post dilated with a 3.25mm NC balloon 4. S/p PCI mid LAD with overlapping 3.25 x 18mm and 3.25 x 15mm Xience CHERRY, post dilated with a 3.5mm NC balloon 5. Pericardial effusion and tamponade likely related to microperforation, s/p pericardial drain placement, pericardiocentesis 6. Progressive cardiac decompensation and cardiac arrest
[2024-09-19] MEDS ORDERED: INSULIN DETEMIR (LEVEMIR) 100 UNIT/ML SYR SQ SCH (21:00)
--- NOTE | 2024-09-20 14:05 | CA ---
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 Aorta CONCLUSIONS Echocardiogram taken after pericardial drain placed in Accounting Systems Analyst Mild to moderate pericardial effusion Impella CP noted in LV LV EF 20-25% with global hypokinesis Previewed by: Dr. Willie Frias DO (Electronically Signed) Final Date: 20 September 2024 14:04
== END 2024-09-19 17:50 | disposition expired | DRG 853 ==
LOC: EC 06:09 → EEVIPCON 07:50 → 5NMEDONC 07:50 → 1SOBS 11:35 → 6NMEDSUR 18:09 → 3SCARD 09-12 20:08 → 2SICU 09-13 15:43
PROVIDERS: ADMIT Student in an Organized Health Care Education/Training Program; ATTEND Student in an Organized Health Care Education/Training Program
PROC: B2111ZZ Fluoroscopy of Multiple Coronary Arteries using Low Osmolar Contrast (ICD-10-PCS; 2024-09-13)
PROC: 4A023N7 Measurement of Cardiac Sampling and Pressure, Left Heart, Percutaneous Approach (ICD-10-PCS; 2024-09-13)
PROC: 02HV33Z Insertion of Infusion Device into Superior Vena Cava, Percutaneous Approach (ICD-10-PCS; 2024-09-15)
PROC: 5A1D70Z Performance of Urinary Filtration, Intermittent, Less than 6 Hours Per Day (ICD-10-PCS; 2024-09-16)
PROC: 5A09457 Assistance with Respiratory Ventilation, 24-96 Consecutive Hours, Continuous Positive Airway Pressure (ICD-10-PCS; 2024-09-16)
PROC: 02HV33Z Insertion of Infusion Device into Superior Vena Cava, Percutaneous Approach (ICD-10-PCS; 2024-09-18)
PROC: 4A133B1 Monitoring of Arterial Pressure, Peripheral, Percutaneous Approach (ICD-10-PCS; 2024-09-18)
PROC: 03HY32Z Insertion of Monitoring Device into Upper Artery, Percutaneous Approach (ICD-10-PCS; 2024-09-18)
PROC: 4A133J1 Monitoring of Arterial Pulse, Peripheral, Percutaneous Approach (ICD-10-PCS; 2024-09-18)
PROC: 02HV33Z Insertion of Infusion Device into Superior Vena Cava, Percutaneous Approach (ICD-10-PCS; 2024-09-18)
PROC: 0B9L8ZZ Drainage of Left Lung, Via Natural or Artificial Opening Endoscopic (ICD-10-PCS; 2024-09-18)
PROC: 0BH17EZ Insertion of Endotracheal Airway into Trachea, Via Natural or Artificial Opening (ICD-10-PCS; 2024-09-18)
PROC: 5A1945Z Respiratory Ventilation, 24-96 Consecutive Hours (ICD-10-PCS; 2024-09-18)
PROC: 02F03ZZ Fragmentation in Coronary Artery, One Artery, Percutaneous Approach (ICD-10-PCS; principal; 2024-09-19 07:30)
PROC: 5A12012 Performance of Cardiac Output, Single, Manual (ICD-10-PCS; principal; 2024-09-19 07:30)
PROC: 027037Z Dilation of Coronary Artery, One Artery with Four or More Drug-eluting Intraluminal Devices, Percutaneous Approach (ICD-10-PCS; principal; 2024-09-19 07:30)
PROC: 3E043XZ Introduction of Vasopressor into Central Vein, Percutaneous Approach (ICD-10-PCS; principal; 2024-09-19 07:30)
PROC: 02HW3RZ Insertion of Short-term External Heart Assist System into Thoracic Aorta, Descending, Percutaneous Approach (ICD-10-PCS; principal; 2024-09-19 07:30)
PROC: B246ZZ3 Ultrasonography of Right and Left Heart, Intravascular (ICD-10-PCS; principal; 2024-09-19 07:30)
PROC: 0W9D30Z Drainage of Pericardial Cavity with Drainage Device, Percutaneous Approach (ICD-10-PCS; principal; 2024-09-19 07:30)
PROC: 4A023N8 Measurement of Cardiac Sampling and Pressure, Bilateral, Percutaneous Approach (ICD-10-PCS; principal; 2024-09-19 07:30)
PROC: 5A0221D Assistance with Cardiac Output using Impeller Pump, Continuous (ICD-10-PCS; principal; 2024-09-19 07:30)
DX: A41.9 Sepsis, unspecified organism (principal); G93.41 Metabolic encephalopathy; I21.4 Non-ST elevation (NSTEMI) myocardial infarction; I50.23 Acute on chronic systolic (congestive) heart failure; J15.69 Pneumonia due to other Gram-negative bacteria; J96.01 Acute respiratory failure with hypoxia; N17.0 Acute kidney failure with tubular necrosis; R65.21 Severe sepsis with septic shock; R57.0 Cardiogenic shock; I31.4 Cardiac tamponade; I31.39 Other pericardial effusion (noninflammatory); E11.52 Type 2 diabetes mellitus with diabetic peripheral angiopathy with gangrene; I13.0 Hypertensive heart and chronic kidney disease with heart failure and stage 1 through stage 4 chronic kidney disease, or unspecified chronic kidney disease; J44.0 Chronic obstructive pulmonary disease with (acute) lower respiratory infection; D63.1 Anemia in chronic kidney disease; N18.9 Chronic kidney disease, unspecified; I34.0 Nonrheumatic mitral (valve) insufficiency; E87.20 Acidosis, unspecified; J98.11 Atelectasis; M86.9 Osteomyelitis, unspecified; N39.0 Urinary tract infection, site not specified; T17.590A Other foreign object in bronchus causing asphyxiation, initial encounter; L97.514 Non-pressure chronic ulcer of other part of right foot with necrosis of bone; E11.65 Type 2 diabetes mellitus with hyperglycemia; I25.5 Ischemic cardiomyopathy; I46.9 Cardiac arrest, cause unspecified; E11.22 Type 2 diabetes mellitus with diabetic chronic kidney disease; E11.621 Type 2 diabetes mellitus with foot ulcer; E11.40 Type 2 diabetes mellitus with diabetic neuropathy, unspecified; E11.628 Type 2 diabetes mellitus with other skin complications; E11.69 Type 2 diabetes mellitus with other specified complication; E78.5 Hyperlipidemia, unspecified; E87.6 Hypokalemia; F17.210 Nicotine dependence, cigarettes, uncomplicated; F41.9 Anxiety disorder, unspecified; I25.10 Atherosclerotic heart disease of native coronary artery without angina pectoris; L03.031 Cellulitis of right toe; I45.10 Unspecified right bundle-branch block; H81.09 Meniere's disease, unspecified ear; M79.5 Residual foreign body in soft tissue; N40.0 Benign prostatic hyperplasia without lower urinary tract symptoms; N50.89 Other specified disorders of the male genital organs; M19.90 Unspecified osteoarthritis, unspecified site; Z20.822 Contact with and (suspected) exposure to COVID-19; Z79.84 Long term (current) use of oral hypoglycemic drugs; Z79.4 Long term (current) use of insulin; Z89.412 Acquired absence of left great toe; Z79.82 Long term (current) use of aspirin; Z79.899 Other long term (current) drug therapy; Z87.440 Personal history of urinary (tract) infections; Z79.01 Long term (current) use of anticoagulants; Z86.14 Personal history of Methicillin resistant Staphylococcus aureus infection; Z91.199 Patient's noncompliance with other medical treatment and regimen due to unspecified reason; Z89.432 Acquired absence of left foot
CPT/HCPCS: 31624; 33210; 33990; 36415; 36556; 36600; 71045; 71046; 76770; 80048; 80053; 80202; 82550; 82552; 82570; 82805; 82810; 83036; 83605; 83615; 83735; 84132; 84300; 84484; 85018; 85025; 85027; 85384; 85610; 85730; 86140; 86706; 87040; 87070; 87102; 87116; 87205; 87206; 87340; 87496; 87498; 87502; 87529; 87634; 87635; 87798; 88108; 88305; 89050; 90935; 92950; 92972; 92978; 93005; 93308; 93451; 93458; 93970; 94002; 94003; 94640; 94660; 96365; 96366; 96368; 99285